=== PATIENT | male | born 1945 ===

== ENCOUNTER 2019-09-01 20:33 | Inpatient (IN) | payer MEDICARE, OTHER ==
[~2019-09-01] VITALS: Ht 175.3 cm; Wt 60.6 kg
--- OUTSIDE RECORDS SUMMARY | ~2019-09-01 | XMS | Encounter Summary ---
Demographics + + + | Address | [address] | | | [place] [address] | + + + | Home Phone | | + + + | Preferred Language | Unknown | + + + | Marital Status | | + + + | Evangelical Affiliation | Unknown | + + + | Race | Unknown | + + + | Ethnic Group | Unknown | + + + Author + + + | Author | [facility] | | | and [place] | + + + | Organization | [facility] | | | and [place] | + + + | Address | Unknown | + + + | Phone | Unavailable | + + + Support + + +---------+ + | Name | Relationship | Address | Phone | + + +---------+ + | Salina Purdy | ECON | Unknown | | + + +---------+ + Care Team Providers + +------+ + | Care Life Specialist Name | Role | Phone | + +------+ + | Aric Palmer | PCP | | | PAPatrica | | | + +------+ + Reason for Visit + + + | Reason | Comments | + + + | Medication Refill | | + + + Encounter Details +--------+--------+ + + + | Date | Type | Department | Care Team | Description | +--------+--------+ + + + | 11/22/ | Refill | [facility] | Aric Palmer | Medication Refill | | 2019 | | [facility] | [address] | | | | | [address] | [place] [facility], | | | | | [facility], | [place] [address] | | | | | [place] [address] | [phone] | | | | | [phone] | | | +--------+--------+ + + + Social History + + + +--------+ + | Tobacco Use | Types | Packs/Day | Years | Date | | | | | Used | | + + + +--------+ + | Current Every Day | Cigarettes | 1 | 62 | Started: 05/19/1954 | | Smoker | | | | | + + + +--------+ + + +---+---+---+ | Smokeless Tobacco: | | | | | Never Used | | | | + +---+---+---+ + + +---------+ + | Alcohol Use | Drinks/Week | oz/Week | Comments | + + +---------+ + | Yes | | | | + + +---------+ + + + + | Sex Assigned at | Date Recorded | | | | + + + | Not on file | | + + + + + + + | Job Start Date | Occupation | Industry | + + + + | Not on file | Not on file | Not on file | + + + + + + + + | Travel History | Travel Start | Travel End | + + + + + + | No recent travel history available. | + + documented as of this encounter Plan of Treatment Not on filedocumented as of this encounter Visit Diagnoses Not on filedocumented in this encounter"
--- OUTSIDE RECORDS SUMMARY | ~2019-09-01 | XMS | Encounter Summary ---
Demographics + + + | Address | [address] | | | [place] [address] | + + + | Home Phone | | + + + | Preferred Language | Unknown | + + + | Marital Status | | + + + | Restoration Affiliation | Unknown | + + + | Race | Unknown | + + + | Ethnic Group | Unknown | + + + Author + + + | Author | [facility] | | | and [place] | + + + | Organization | [facility] | | | and [place] | [...] Team Providers + +------+ + | Care Third Hand Name | Role | Phone | + +------+ + | Aric Palmer | PCP | | | PA-Terry | | | + +------+ + Reason for Visit + + + | Reason | Comments | + + + | Animal Bite | cat | + + + Encounter Details +--------+---------+ + + + | Date | Type | Department | Care Team | Description | +--------+---------+ + + + | 12/13/ | Office | [facility] | Lai Faith, | Infected cat bite of | | 2019 | Visit | [facility] | DNP [address] | finger, initial | | | | [address] | [place] [address] | encounter (Primary | | | | [facility], | [phone] | Dx); Chronic | | | | [place] [address] | | obstructive | | | | [phone] | | pulmonary disease, | | | | | | unspecified COPD | | | | | | type ([facility]); Stable | | | | | | angina pectoris | | | | | | ([facility]) | +--------+---------+ + + + Social History + + + +--------+ + | Tobacco Use | Types | Packs/Day | Years | Date | | | | | Used | | + + + +--------+ + | Current Every Day | Cigarettes | 2 | 63 | Started: 05/19/1954 | | Smoker | | | | | + + + +--------+ + + +---+---+---+ | Smokeless Tobacco: | | | | | Never Used | | | | + +---+---+---+ + + +---------+ + | Alcohol Use | Drinks/Week | oz/Week | Comments | + + +---------+ + | Yes | 1 Shots of liquor | 1.0 | every evening | + + +---------+ + + + [...] + + documented as of this encounter Last Filed Vital Signs + + + + + | Vital Sign | Reading | Time Taken | Comments | + + + + + | Blood Pressure | 132/60 | 12/13/2018 1:08 PM | | | | | PST | | + + + + + | Pulse | - | - | | + + + + + | Temperature | 36.8 C (98.2 F) | 12/13/2018 1:08 PM | | | | | PST | | + + + + + | Respiratory Rate | - | - | | + + + + + | Oxygen Saturation | 94% | 12/13/2018 1:08 PM | | | | | PST | | + + + + + | Inhaled Oxygen | - | - | | | Concentration | | | | + + + + + | Weight | 65.9 kg (145 lb 4.8 | 12/13/2018 1:08 PM | | | | oz) | PST | | + + + + + | Height | 175.3 cm (5' 9") | 12/13/2018 1:08 PM | | | | | PST | | + + + + + | Body Mass Index | 21.46 | 12/13/2018 1:08 PM | | | | | PST | | + + + + + documented in this encounter Progress Notes Lai Faith, KEITH - 12/13/2018 1:00 PM PSTFormatting of this note might be different fro m the original. Patient ID: Saturnino Avila is a 73 y.o. year old male Chief Complaint Patient presents with Animal Bite cat Assessment and Plan: 1. Infected cat bite of finger, initial encounter - amoxicillin-clavulanate (AUGMENTIN) 875-125 mg per tablet; Take 1 tablet by mouth 2 times daily for 14 days. Dispense: 28 tablet; Refill: 0 - Apply hot compresses as able. - Epsom salt soaks. - Promote purulent drainage as able. 2. Chronic obstructive pulmonary disease, unspecified COPD type (HCC) - tiotropium-olodaterol (STIOLTO RESPIMAT) 2.5-2.5 mcg/puff inhaler; Inhale 2 puffs into th e lungs Daily. Dispense: 1 Inhaler; Refill: 4 3. Stable angina pectoris (HCC) - nitroglycerin (NITROSTAT) 0.4 mg SL tablet; Place 1 tablet under the tongue every 5 minut es as needed for Chest pain. Dispense: 25 tablet; Refill: 1 Follow up in the clinic next week for a nurse only visit to reevaluate the infected bite wo und. Patient may also follow up as needed. Subjective: Saturnino is a 73-year-old who presents to the clinic with complaints of a recent cat bite that is infected. The cat was a stray that he has had a relationship with for some ti me. Saturnino has a Tdap injection in 2016, so he is up to date on his tetanus. His finger has been painful, red, and swollen with prurulent drainage. The cat was taken to the [facility] after the bite incident. While the finger is obviously infected it is only causing mo derate pain, rated 4-6/10. There has not been any erythematous streaking up the patient's a rm. He denies increased chest pain, fever, chills, diaphoresis, increased shortness of abhijit th or palpitations. Saturnino does have stable angina for which he intermittently takes Nitroglycerine. He has not had a refill of this medication in some time and would like to get a fresh supply. He also needs a refill of his maintenance inhaler which he uses for his baseline COPD. Saturnino denie s other needs at this time. Allergies Allergen Reactions Aspirin Nausea Only and Swelling Bee Venom Anaphylaxis Soap & Cleansers Swelling Rash/swelling Uncoded Nonscreenable Allergen [place], patient states he gets red spots and they burn and get itchy. Codeine Nausea And Vomiting Social History Social History Marital status: Spouse name: N/A Number of children: N/A Years of education: N/A Occupational History Not on file. Social History Main Topics Smoking status: Current Every Day Smoker Packs/day: 2.00 Years: 62.00 Types: Cigarettes Start date: 05/19/1954 Smokeless tobacco: Never Used Alcohol use 0.6 oz/week 1 Shots of liquor per week Comment: every evening Drug use: Yes Types: Marijuana Comment: occasional Sexual activity: Not Currently Other Topics Concern Not on file Social History Narrative No narrative on file Current Outpatient Prescriptions Medication Sig Dispense Refill amoxicillin-clavulanate (AUGMENTIN) 875-125 mg per tablet Take 1 tablet by mouth 2 time s daily for 14 days. 28 tablet 0 B Complex Vitamins (VITAMIN B COMPLEX) tablet Take 1 tablet by mouth Daily. 90 each 3 Calcium Carb-Cholecalciferol (CALCIUM 500 +D) 500-400 MG-UNIT TABS Take 2 tablets by mo uth Daily. 180 tablet 3 capsaicin (ZOSTRIX) 0.025% cream Apply topically Daily. carvedilol (COREG) 6.25 mg tablet Take 1 tablet by mouth 2 times daily (with breakfast & dinner). 180 tablet 3 clopidogrel (PLAVIX) 75 mg tablet Take 1 tablet by mouth Daily. 90 tablet 3 cyclobenzaprine (FLEXERIL) 10 mg tablet Take 1 tablet by mouth 3 times daily as needed for Muscle spasms. 270 tablet 0 EPINEPHrine auto-injector (EPIPEN 2-TERRI) 0.3 mg/0.3 mL injection Inject 0.3 mg into the muscle as needed for Anaphylaxis. fluocinonide (LIDEX) 0.05% cream Apply topically Daily. 90 Application 3 gabapentin (NEURONTIN) 300 mg capsule Take 3 capsules by mouth 3 times daily. 810 capsu le 0 HYDROcodone-acetaminophen (NORCO) 5-325 mg per tablet Take 2 tablets by mouth 2 times d aily. 112 tablet 5 lisinopril (PRINIVIL,ZESTRIL) 40 MG tablet Take 1 tablet by mouth Daily. 90 tablet 3 nitroglycerin (NITROSTAT) 0.[address] 1 tablet under the tongue every 5 stacy sade as needed for Chest pain. 25 tablet 1 Nutritional Supplements (ENSURE PLUS HN) LIQD Take 1 Can by mouth 2 times daily. 60 Can 11 nystatin (MYCOSTATIN) 100,000 units/mL suspension Swish and swallow 5 ml four times kevin ly up to 48 hours after symptoms resolve Indications: Candidiasis Fungal Infection of the O ropharynx 473 mL 0 omeprazole (PRILOSEC) 20 mg capsule Take 1 capsule by mouth 2 times daily. 180 capsule 0 prazosin (MINIPRESS) 2 MG capsule Take 1 capsule by mouth 2 times daily. 60 capsule 11 simvastatin (ZOCOR) 80 mg tablet Take 1 tablet by mouth nightly. 90 tablet 3 tiotropium-olodaterol (STIOLTO RESPIMAT) 2.5-2.5 mcg/puff inhaler Inhale 2 puffs into t he lungs Daily. 1 Inhaler 4 traZODone (DESYREL) 100 mg tablet Take 1 tablet by mouth nightly. Take 2 tablets at nig ht 90 tablet 0 No current facility-administered medications for this visit. Review of Systems See HPI. Objective: Vitals: BP 132/60 | Temp 36.8 C (98.2 F) | Ht 1.753 m (5' 9") | Wt 65.9 kg (145 lb 4.8 oz) | SpO2 94% | BMI 21.46 kg/m Physical Exam Constitutional: He is oriented to person, place, and time. He appears well-developed and we ll-nourished. No distress. Cardiovascular: Normal rate, regular rhythm and normal heart sounds. No murmur heard. Pulmonary/Chest: Effort normal and breath sounds normal. No respiratory distress. He has no wheezes. He has no rales. Musculoskeletal: See clinical image. Right 5th finger is swollen with two to three puncture sites. Upon pa lpation and compression there is apparent purulent drainage from the ventral puncture hole. Neurological: He is alert and oriented to person, place, and time. Skin: Skin is warm and dry. No rash noted. He is not diaphoretic. There is erythema. No pal frankie. Psychiatric: He has a normal mood and affect. His behavior is normal. Judgment and thought content normal. This note was transcribed using voice recognition software; there may be speech recognition errors which escaped detection during proofreading. documented in this en counter Plan of Treatment Not on filedocumented as of this encounter Visit Diagnoses + + | Diagnosis | + + | Infected cat bite of finger, initial encounter - Primary | + + | Chronic obstructive pulmonary disease, unspecified COPD type (HCC) | + + | Stable angina pectoris (HCC) | + + documented in this encounter
--- OUTSIDE RECORDS SUMMARY | ~2019-09-01 | XMS | Encounter Summary ---
Demographics + + + | Address | [address] | | | [place] [address] | + + + | Home Phone | | + + + | Preferred Language | Unknown | + + + | Marital Status | | + + + | Uatsdin Affiliation | Unknown | + + + | Race | Unknown | + + + | Ethnic Group | Unknown | + + + Author + + + | Author | [facility] | | | and [place] | + + + | Organization | [facility] | | | and [place] [...] Team Providers + +------+ + | Care Operator Name | Role | Phone | + +------+ + | Faith Rodríguez NP | PCP | | + +------+ + Reason for Visit + + + | Reason | Comments | + + + | Medication Refill | | + + + Encounter Details +--------+--------+ + + + | Date | Type | Department | Care Team | Description | +--------+--------+ + + + | 11/07/ | Refill | [facility] | Nate Rodríguezher | Medication Refill | | 2018 | | [facility] | D, DIRECTOR NURSES' REGISTRY ONE | | | | | PR[address] C[address] | [facility] | | | | | [facility], | [place] [address] | | | | | [place] [address] | [phone] | | | | | [phone] | | | +--------+--------+ + + + [...] + | Diagnosis | + + | Chronic obstructive pulmonary disease, unspecified COPD type (HCC) - Primary | + + documented in this encounter"
--- OUTSIDE RECORDS SUMMARY | ~2019-09-01 | XMS | Encounter Summary ---
Demographics + + + | Address | [address] | | | [place] [address] | + + + | Home Phone | | + + + | Preferred Language | Unknown | + + + | Marital Status | | + + + | Hoahaoism Affiliation | Unknown | + + + | Race | Unknown | + + + | Ethnic Group | Unknown | + + + Author + + + | Author | [facility] | | | and [place] | + + + | Organization | [facility] | | | and [place] | [...] Team Providers + +------+ + | Care Business Account Specialist Name | Role | Phone | + +------+ + | Faith Rodríguez NP | PCP | | + +------+ + Encounter Details +--------+ + + + + | Date | Type | Department | Care Team | Description | +--------+ + + + + | 07/31/ | Hospital | [facility] | Faith Rodríguez | | | 2016 | Encounter | [facility] [address] | [address] | | | | | [place] | [facility] | | | | | [place], [place] | [place] [address] | | | | | [address] | [phone] | | | | | [phone] | | | +--------+ + + + + Social History + +-------+ +--------+ + | Tobacco Use | Types | Packs/Day | Years | Date | | | | | Used | | + +-------+ +--------+ + | Current Every Day | | 1.5 | 63 | Started: 05/19/1954 | | Smoker | | | | | + +-------+ +--------+ + + +---+---+---+ | Smokeless Tobacco: | | | | | Never Used | | | | + +---+---+---+ + + + | Sex Assigned at [...] + + documented as of this encounter Medications at Time of Discharge + + + +---------+--------+ + | Medication | Sig | Dispensed | Refills | Start | End Date | | | | | | Date | | + + + +---------+--------+ + | albuterol | Inhale 2 puffs into | | 0 | | | | (PROVENTIL HFA) 90 | the lungs every 4 | | | | 8 | | mcg/puff inhaler | hours as needed for | | | | | | | Wheezing or | | | | | | | Shortness of Breath. | | | | | + + + +---------+--------+ + | B Complex Vitamins | Take 1 tablet by | | 0 | | | | (VITAMIN B COMPLEX) | mouth Daily. | | | | 8 | | tablet | | | | | | + + + +---------+--------+ + | capsaicin | Apply topically | | 0 | | | | (ZOSTRIX) 0.025% | Daily. | | | | 9 | | cream | | | | | | + + + +---------+--------+ + | cyclobenzaprine | Take 10 mg by mouth | | 0 | | | | (FLEXERIL) 10 mg | 3 times daily as | | | | 8 | | tablet | needed for Muscle | | | | | | | spasms. | | | | | + + + +---------+--------+ + | EPINEPHrine | Inject 0.3 mg into | | 0 | | | | auto-injector | the muscle as needed | | | | 9 | | (EPIPEN 2-TERRI) 0.3 | for Anaphylaxis. | | | | | | mg/0.3 mL injection | | | | | | + + + +---------+--------+ + | fluocinonide | Apply topically | | 0 | | | | (LIDEX) 0.05% cream | Daily. | | | | 8 | + + + +---------+--------+ + | gabapentin | Take 900 mg by mouth | | 0 | | | | (NEURONTIN) 300 mg | 3 times daily. | | | | 8 | | capsule | | | | | | + + + +---------+--------+ + | | Take 2 tablets by | | 0 | | | | HYDROcodone-acetamin | mouth 2 times daily. | | | | 7 | | ophen (NORCO) 5-325 | | | | | | | mg per tablet | | | | | | + + + +---------+--------+ + | lisinopril | Take 40 mg by mouth | | 0 | | | | (PRINIVIL,ZESTRIL) | Daily. | | | | 8 | | 40 MG tablet | | | | | | + + + +---------+--------+ + | omeprazole | Take 20 mg by mouth | | 0 | | | | (PRILOSEC) 20 mg | 2 times daily. | | | | 8 | | capsule | | | | | | + + + +---------+--------+ + | prazosin | Take 2 mg by mouth 2 | | 0 | | | | (MINIPRESS) 2 MG | times daily. | | | | 7 | | capsule | | | | | | + + + +---------+--------+ + | simvastatin | Take 80 mg by mouth | | 0 | | | | (ZOCOR) 80 mg tablet | nightly. | | | | 9 | + + + +---------+--------+ + | | Inhale 2 puffs into | | 0 | | | | tiotropium-olodatero | the lungs Daily. | | | | 8 | | l (STIOLTO RESPIMAT) | | | | | | | 2.5-2.5 mcg/puff | | | | | | | inhaler | | | | | | + + + +---------+--------+ + | traZODone | Take 100 mg by mouth | | 0 | | | | (DESYREL) 100 mg | nightly. | | | | 8 | | tablet | | | | | | + + + +---------+--------+ + documented as of this encounter Plan of Treatment Not on filedocumented as of this encounter Procedures + +--------+ + + + | Procedure Name | Priori | Date/Time | Associated Diagnosis | Comments | | | ty | | | | + +--------+ + + + | CT CHEST W CONTRAST | Routin | 07/31/2017 | | Results for this | | | e | 12:53 PM | | procedure are in the | | | | PDT | | results section. | + +--------+ + + + documented in this encounter Results CT Chest w Contrast (07/31/2017 12:53 PM PDT) + + | Specimen | + + | | + + + + + | Narrative | Performed At | + + + | EXAMINATION: CT THORAX WITH CONTRAST HISTORY: 9mm nodule & 2- | | | 5mm nodules. Cough,copd. COMPARISON STUDY: CT chest 04/28/2017. | | | TECHNIQUE: 5 mm axial slices were acquired through the lungs with | | | contrast. Multiplanar MIP and surface rendered reconstructions were | | | performed. There was no post contrast reaction. DOSE REPORT: | | | DLP 147.31 mGy-cm. Automated exposure control was utilized. | | | FINDINGS: Severe emphysematous changes are redemonstrated. Again | | | demonstrated at the base of the right lower lobe abutting the minor | | | fissure a 9 mm platelike opacity is present. The margins are | | | spiculated. No hilar or mediastinal adenopathy is seen. Heart | | | size is normal. Atherosclerosis of the coronary arteries is | | | present. Atherosclerosis of the aortic valve is present. No lytic | | | or blastic bone lesions are seen. Below the diaphragm no acute | | | finding is identified. Hypo attenuating 1.5 cm right thyroid nodule | | | is present. The descending aorta demonstrates maximal caliber of | | | approximately 4.5 cm. Mural thrombus with ulceration is evident at | | | the descending aorta. IMPRESSION: 1. Stable appearing right upper | | | lobe platelike nodular opacity. Given the severe emphysematous | | | changes patient is considered high risk. The lesion does abut the | | | minor fissure and demonstrates a plate like configuration rather than | | | a rounded configuration. This finding could relate to scar although | | | malignancy is not excluded. Six-month follow-up CT or PET-CT | | | recommended to further evaluate. 2. Severe emphysematous changes. | | | 3. Atherosclerosis coronary arteries. 4. Atherosclerosis aortic | | | valve. 5. Right thyroid nodule. Recommend ultrasound to further | | | evaluate. 6. Mural thrombus was ulcerated appearance involving | | | descending thoracic aorta. This finding is unchanged. Vascular | | | consult recommended. JOB #: [id number] Digitally Released by: | | | Faye Quintero Read By: FAYE QUINTERO MD Date: | | | 07/31/2017 14:06 | | + + + + + | Procedure Note | + + | Ish[place], Rad Results In - 11/03/2017 8:59 AM PST EXAMINATION: | | CT THORAX WITH CONTRAST | | | | HISTORY: | | 9mm nodule & 2- 5mm nodules. Cough,copd. | | | | COMPARISON STUDY: | | CT chest 04/28/2017. | | | | TECHNIQUE: | | 5 mm axial slices were acquired through the lungs with contrast. Multiplanar | | MIP and surface rendered reconstructions were performed. There was no post | | contrast reaction. | | | | DOSE REPORT: | | DLP 147.31 mGy-cm. Automated exposure control was utilized. | | | | FINDINGS: | | Severe emphysematous changes are redemonstrated. Again demonstrated at the | | base of the right lower lobe abutting the minor fissure a 9 mm platelike | | opacity is present. The margins are spiculated. No hilar or mediastinal | | adenopathy is seen. Heart size is normal. Atherosclerosis of the coronary | | arteries is present. Atherosclerosis of the aortic valve is present. No | | lytic or blastic bone lesions are seen. Below the diaphragm no acute finding | | is identified. Hypo attenuating 1.5 cm right thyroid nodule is present. | | | | The descending aorta demonstrates maximal caliber of approximately 4.5 cm. | | Mural thrombus with ulceration is evident at the descending aorta. | | | | IMPRESSION: | | 1. Stable appearing right upper lobe platelike nodular opacity. Given the | | severe emphysematous changes patient is considered high risk. The lesion does | | abut the minor fissure and demonstrates a plate like configuration rather than | | a rounded configuration. This finding could relate to scar although | | malignancy is not excluded. Six-month follow-up CT or PET-CT recommended to | | further evaluate. | | 2. Severe emphysematous changes. | | 3. Atherosclerosis coronary arteries. | | 4. Atherosclerosis aortic valve. | | 5. Right thyroid nodule. Recommend ultrasound to further evaluate. | | 6. Mural thrombus was ulcerated appearance involving descending thoracic | | aorta. This finding is unchanged. Vascular consult recommended. | | | | | | JOB #: [id number] | | Digitally Released by: Faye Quintero | | | | | | Read By: FAYE QUINTERO MD | | Date: 07/31/2017 14:06 | | | + + documented in this encounter Visit Diagnoses Not on filedocumented in this encounter"
--- OUTSIDE RECORDS SUMMARY | ~2019-09-01 | XMS | Encounter Summary ---
Demographics + + + | Address | [address] | | | [place] [address] | + + + | Home Phone | | + + + | Preferred Language | Unknown | + + + | Marital Status | | + + + | Gnosticism Affiliation | Unknown | + + + | Race | Unknown | + + + | Ethnic Group | Unknown | + + + Author + + + | Author | [facility] | | | and [place] | + + + | Organization | [facility] | | | and [place] [...] Team Providers + +------+ + | Care Supervisor Tellers Name | Role | Phone | + +------+ + | Aric Palmer | PCP | | | [place] | | | + +------+ + Encounter Details +--------+ + + + + | Date | Type | Department | Care Team | Description | +--------+ + + + + | 10/31/ | Orders Only | [facility] | Aric Palmer | | | 2018 | | [facility] | [place] [address] | | | | | [address] | [address] [address], | | | | | [place] [address] [place], | [place] [address] | | | | | [place] [address] | [phone] | | | | | [phone] | | | +--------+ + + + + Social History + + [...]
--- OUTSIDE RECORDS SUMMARY | ~2019-09-01 | XMS | Encounter Summary ---
Demographics + + + | Address | [address] | | | [place] [address] | + + + | Home Phone | | + + + | Preferred Language | Unknown | + + + | Marital Status | | + + + | Adventist Affiliation | Unknown | + + + | Race | Unknown | + + + | Ethnic Group | Unknown | + + + Author + + + | Author | [facility] | | | and [place] | + + + | Organization | [facility] | | | and [place] [...] Team Providers + +------+ + | Care Die Sizer Name | Role | Phone | + +------+ + PCP | Unavailable | + +------+ + Encounter Details +--------+ + + + + | Date | Type | Department | Care Team | Description | +--------+ + + + + | 01/25/ | Hospital | [facility] | Jacklyn Saldana | | | 2010 | Encounter | [facility] [address] | [address] | | | | | [address] | [address] | | | | | [place] | [place] [address] | | | | | [address] | [phone] | | | | | [phone] | | | +--------+ + + + + Social History + +-------+ +--------+------+ | Tobacco Use | Types | Packs/Day | Years | Date | | | | | Used | | + +-------+ +--------+------+ | Never Assessed | | | | | + +-------+ +--------+------+ + + + | Sex Assigned at [...]
--- OUTSIDE RECORDS SUMMARY | ~2019-09-01 | XMS | Encounter Summary ---
Demographics + + + | Address | [address] | | | [place] [address] | + + + | Home Phone | | + + + | Preferred Language | Unknown | + + + | Marital Status | | + + + | Evangelical Affiliation | Unknown | + + + | Race | Unknown | + + + | Ethnic Group | Unknown | + + + Author + + + | Author | [facility] | | | and [place] | + + + | Organization | [facility] | | | and [...] Team Providers + +------+ + | Care Audio Technician Name | Role | Phone | + [...] Description | +--------+--------+ + + + | 10/31/ | Refill | [facility] | Aric Palmer | Medication Refill | | 2019 | | [facility] | [address] | | | | | [address] | [place] [facility], | | | | | [place], | [place] [address] | | | | | [place] [address] | [phone] | | | | | [phone] | | | +--------+--------+ + + + [...] + | Diagnosis | + + | Essential hypertension Unspecified essential hypertension | + + documented in this encounter"
--- OUTSIDE RECORDS SUMMARY | ~2019-09-01 | XMS | Encounter Summary ---
Demographics + + + | Address | [address] | | | [place] [address] | + + + | Home Phone | | + + + | Preferred Language | Unknown | + + + | Marital Status | | + + + | Zoroastrianism Affiliation | Unknown | + + + | Race | Unknown | + + + | Ethnic Group | Unknown | + + + Author + + + | Author | [facility] | | | and [place] | + + + | Organization | [facility] | | | and [place] | [...] Team Providers + +------+ + | Care Dermatology Technician Name | Role | Phone | + +------+ + | Aric Palmer | PCP | | | [place] | | | + +------+ + Encounter Details +--------+ + + + + | Date | Type | Department | Care Team | Description | +--------+ + + + + | 03/26/ | Transcribed | [place] [facility] | Aric Palmer | Annual physical exam | | 2019 | Orders | [facility] | [address] | (Primary Dx); | | | | [address] | [place] [facility], | Routine medical exam | | | | [facility], [place] | [place] [address] | | | | | [address] | [phone] | | | | | [phone] | | | +--------+ + + + [...] Not on filedocumented as of this encounter Results Urinalysis (06/12/2019 4:07 PM PDT) + + + + + + | Component | Value | Ref Range | Performed | Pathologist | | | | | At | Signature | + + + + + + | Color | Alana (A) | Pale Yellow, | [place] | | | | | Yellow | [facility] | | | | | [facility] | | + + + + + + | Clarity | Clear | Clear | [place] | | | | | | [facility] | | | | [facility] | | + + + + + + | pH, Urine | 5.0 | 5.0 - 7.0 | [place] | | | | | | [facility] | | | | | | [facility] | | + + + + + + | Specific | 1.010 | 1.003 - 1.030 | [place] | | | [place] | | | [facility] | | | | | | [facility] | | + + + + + + | Protein, | 30 mg/dL (A) | Negative | [place] | | | Urine | | | [facility] | | | | | | [facility] | | + + + + + + | Blood, | Negative | Negative | [place] | | | Urine | | | [facility] | | | | | | [facility] | | + + + + + + | Glucose, | Normal | Normal | [place] | | | Urine | | | [facility] | | | | | | [facility] | | + + + + + + | Ketones, | 5 mg/dL (A) | Negative | [place] | | | Urine | | | [facility] | | | | | | [facility] | | + + + + + + | Bilirubin, | Negative | Negative | [place] | | | Urine | | | [facility] | | | | | | [facility] | | + + + + + + | Nitrite, | Negative | Negative | [place] | | | Urine | | | [facility] | | | | | | [facility] | | + + + + + + | Leukocyte | 25 evie/uL (A) | Negative | [place] | | | [facility], | | | [facility] | | | U[facility] | | [facility] | | | | | | [facility] | | + + + + + + | Urobilinoge | 8 mg/dL (A) | 0-1.0 mg/dL | [place] | | | n, Urine | | | [facility] | | | | | | [facility] | | + + + + + + + + | Specimen | + + | Urine - Urine | | specimen obtained by | | clean catch | | procedure (specimen) | + + + + + + + | Performing | Address | City/State/Zipcode | Phone Number | | Organization | | | | + + + + + | [facility] | [address] | [place] [address] | [phone] | | [facility] | | | | + + + + + documented in this encounter Visit Diagnoses + + | Diagnosis | + + | Annual physical exam - Primary Routine general medical examination at a [facility] | | facility | + + | Routine medical exam Routine general medical examination at a health care facility | + + documented in this encounter"
--- OUTSIDE RECORDS SUMMARY | ~2019-09-01 | XMS | Encounter Summary ---
Demographics + + + | Address | [address] | | | [place] [address] | + + + | Home Phone | | + + + | Preferred Language | Unknown | + + + | Marital Status | | + + + | Jewish Affiliation | Unknown | + + + | Race | Unknown | + + + | Ethnic Group | Unknown | + + + Author + + + | Author | [facility] | | | and [place] | + + + | Organization | [facility] | | | and [place] [...] Team Providers + +------+ + | Care Power Line Lineman Name | Role | Phone | + +------+ + | Aric Palmer | PCP | | | PA-C | | | + +------+ + Reason for Visit + + + | Reason | Comments | + + + | Medication Refill | | + + + | Medication Refill | | + + + Encounter Details +--------+--------+ + + + | Date | Type | Department | Care Team | Description | +--------+--------+ + + + | 04/24/ | Refill | [facility] | Aric Palmer | Medication Refill; | | 2018 | | [facility] | [address] | Medication Refill | | | | [address] | [facility], | | | | | [facility], | [place] [address] | | | | | [place] [address] | [phone] | | | | | [phone] | | | +--------+--------+ + + + [...]
--- OUTSIDE RECORDS SUMMARY | ~2019-09-01 | XMS | Encounter Summary ---
Demographics + + + | Address | [address] | | | [place] [address] | + + + | Home Phone | | + + + | Preferred Language | Unknown | + + + | Marital Status | | + + + | Sabianist Affiliation | Unknown | + + + | Race | Unknown | + + + | Ethnic Group | Unknown | + + + Author + + + | Author | [facility] | | | and [place] | + + + | Organization | [facility] | | | and [...] Team Providers + +------+ + | Care Rubberizing Mechanic Name | Role | Phone | + +------+ + PCP | Unavailable | + +------+ + Encounter Details +--------+ + + + + | Date | Type | Department | Care Team | Description | +--------+ + + + + | 03/22/ | [facility] | [place] [facility] | [place] | | | 2017 | Encounter | [facility] | [address] | | | | | SUR[address] | [address] [place] | | | | | [address] [place], | [place], [place] | | | | | [place] [address] | [address] | | | | | [phone] | [phone] | | | | | | | | +--------+ + + + [...]
--- OUTSIDE RECORDS SUMMARY | ~2019-09-01 | XMS | Encounter Summary ---
Demographics + + + | Address | [address] | | | [place] [address] | + + + | Home Phone | | + + + | Preferred Language | Unknown | + + + | Marital Status | | + + + | Cheondoism Affiliation | Unknown | + + + | Race | Unknown | + + + | Ethnic Group | Unknown | + + + Author + + + | Author | [facility] | | | and [place] | + + + | Organization | [facility] | | | and [place] [...] Team Providers + +------+ + | Care Paper Finisher Name | Role | Phone | + +------+ + | Faith Rodríguez NP | PCP | | + +------+ + Reason for Visit Diagnostic/Screening (Routine) +--------+--------+ + + + + | Status | Reason | Specialty | Diagnoses / | Referred By | Referred To | | | | | Procedures | Contact | Contact | +--------+--------+ + + + + | Closed | | Radiology | Procedures | Provider, | | | | | | CT Chest w | Historical, | | | | | | Contrast | [address] | | | | | | | [address] | | | | | | | [place] | | | | | | | [address] | | +--------+--------+ + + + + Encounter Details +--------+ + + + + | Date | Type | Department | Care Team | Description | +--------+ + + + + | 08/09/ | Imaging | [facility] | Provider, | | | 2017 | Exam | [facility] | [address] | | | | | IMAGING | [place] | | | | | [phone] | [place] [address] | | +--------+ + + + + [...] for this | | | e | 1:40 PM | | procedure are in the | | | | PDT | | results section. | + +--------+ + + + documented in this encounter Results CT Chest w Contrast (07/31/2017 1:40 PM PDT) + + | Specimen | + + | | + + + + + | Narrative | Performed At | + + + | External films | [facility] | | for comparison only - no result from Jamie. | | + + + + +---------+ + + | Performing | Address | City/State/Zipcode | Phone Number | | Organization | | | | + +---------+ + + | [facility] | | | | + +---------+ + + documented in this encounter Visit Diagnoses Not on filedocumented in this encounter"
--- OUTSIDE RECORDS SUMMARY | ~2019-09-01 | XMS | Encounter Summary ---
Demographics + + + | Address | [address] | | | [place] [address] | + + + | Home Phone | | + + + | Preferred Language | Unknown | + + + | Marital Status | | + + + | Jain Affiliation | Unknown | + + + | Race | Unknown | + + + | Ethnic Group | Unknown | + + + Author + + + | Author | [facility] | | | and [place] | + + + | Organization | [facility] | | | and [place] [...] Team Providers + +------+ + | Care Heeler Machine Name | Role | Phone | + +------+ + | Faith Rodríguez NP | PCP | | + +------+ + Reason for Visit +--------+ + | Reason | Comments | +--------+ + | Other | | +--------+ + Encounter Details +--------+ + + + + | Date | Type | Department | Care Team | Description | +--------+ + + + + | 07/19/ | Telephone | [facility] | Aric Palmer | Other | | 2018 | | [facility] | [address] | | | | | [address] | [place] [facility], | | | | | [place] [facility], | [place] [address] | | | | | [place] [address] | [phone] | | | | | [phone] | | | +--------+ + + + [...]
--- OUTSIDE RECORDS SUMMARY | ~2019-09-01 | XMS | Encounter Summary ---
Demographics + + + | Address | [address] | | | [place] [address] | + + + | Home Phone | | + + + | Preferred Language | Unknown | + + + | Marital Status | | + + + | Baptist Affiliation | Unknown | + + + | Race | Unknown | + + + | Ethnic Group | Unknown | + + + Author + + + | Author | [facility] | | | and [place] | + + + | Organization | [facility] | | | and [...] Team Providers + +------+ + | Care Photocomposition Keyboard Operator Name | Role | Phone | + +------+ + PCP | Unavailable | + +------+ + Encounter Details +--------+ + + + + | Date | Type | Department | Care Team | Description | +--------+ + + + + | 05/01/ | [facility] | [place] [facility] | Carlos Callejas | | | 2016 | Encounter | HOSPITAL EMERGENCY | [address] | | | | | [place] | [facility] | | | | | [address] [place] | [place] [address] | | | | | [address] | [phone] | | | | | [phone] | | | +--------+ + + + [...] | + +--------+ + + + | CBC W/AUTO | STAT | 05/01/2017 | | Results for this | | DIFFERENTIAL | | 2:54 PM | | procedure are in the | | | | PDT | | results section. | + +--------+ + + + | TROPONIN I | STAT | 05/01/2017 | | Results for this | | | | 2:54 PM | | procedure are in the | | | | PDT | | results section. | + +--------+ + + + | MAGNESIUM | STAT | 05/01/2017 | | Results for this | | | | 2:54 PM | | procedure are in the | | | | PDT | | results section. | + +--------+ + + + | LIPASE | STAT | 05/01/2017 | | Results for this | | | | 2:54 PM | | procedure are in the | | | | PDT | | results section. | + +--------+ + + + | COMPREHENSIVE | STAT | 05/01/2017 | | Results for this | | METABOLIC PANEL | | 2:54 PM | | procedure are in the | | | | PDT | | results section. | + +--------+ + + + | XR CHEST 2 VIEWS | Routin | 05/01/2017 | | Results for this | | | e | 11:43 AM | | procedure are in the | | | | PDT | | results section. | + +--------+ + + + | CT ANGIOGRAM HEAD W | Routin | 05/01/2017 | | Results for this | | CONTRAST | e | 11:43 AM | | procedure are in the | | | | PDT | | results section. | + +--------+ + + + documented in this encounter Results Troponin I (05/01/2017 2:54 PM PDT) + +-------+ + + + | Component | Value | Ref Range | Performed | Pathologist | | | | | At | Signature | + +-------+ + + + | Troponin I | 0.03 | <=0.10 ng/mL | EXTERNAL | | | | | | LAB | | + +-------+ + + + + + | Specimen | + + | | + + + +---------+ + + | Performing | Address | City/State/Zipcode | Phone Number | | Organization | | | | + +---------+ + + | EXTERNAL LAB | | | | + +---------+ + + CBC w/ Auto Differential (05/01/2017 2:54 PM PDT) + +-------+ + + + | Component | Value | Ref Range | Performed | Pathologist | | | | | At | Signature | + +-------+ + + + | WBC | 7.5 | 4.6 - 10.5 | EXTERNAL | | | | | 1000/mm3 | LAB | | + +-------+ + + + | RBC | 3.78 | 4.36 - 5.83 | EXTERNAL | | | | | mil/mm3 | LAB | | + +-------+ + + + | HGB, | 13.4 | 13.1 - 17.4 | EXTERNAL | | | External | | g/dL | LAB | | + +-------+ + + + | HCT, | 39.1 | 39.0 - 51.9 % | EXTERNAL | | | External | | | LAB | | + +-------+ + + + | MCV | 103 | 82 - 96 fl | EXTERNAL | | | | | | LAB | | + +-------+ + + + | MCH | 35.4 | 27.7 - 32.3 pg | EXTERNAL | | | | | | LAB | | + +-------+ + + + | MCHC | 34.3 | 32.0 - 36.9 | EXTERNAL | | | | | g/dL | LAB | | + +-------+ + + + | RDW-CV | 12.9 | <=17.0 % | EXTERNAL | | | | | | LAB | | + +-------+ + + + | RDW-SD | 49 | 34.0 - 57.0 fL | EXTERNAL | | | | | | LAB | | + +-------+ + + + | Platelet | 152 | 150 - 450 | EXTERNAL | | | Count | | 1000/mm3 | LAB | | | Plasma | | | | | + +-------+ + + + | MPV | 10.2 | 9.4 - 12.4 FL | EXTERNAL | | | | | | LAB | | + +-------+ + + + | % Segmented | 57.7 | 42.0 - 76.0 % | EXTERNAL | | | | | | LAB | | | Neutrophils | | | | | + +-------+ + + + | % | 32.2 | 20.0 - 40.0 % | EXTERNAL | | | Lymphocytes | | | LAB | | + +-------+ + + + | % Monocytes | 7.2 | 3.0 - 13.0 % | EXTERNAL | | | | | | LAB | | + +-------+ + + + | % | 2.5 | 0.0 - 7.0 % | EXTERNAL | | | Eosinophils | | | LAB | | + +-------+ + + + | % Basophils | 0.3 | 0.0 - 2.0 % | EXTERNAL | | | | | | LAB | | + +-------+ + + + | % Immature | 0.1 | 0.0 - 0.5 % | EXTERNAL | | | Granulocyte | | | LAB | | | s | | | | | + +-------+ + + + | % nRBC | 0 | 0.0 - 0.2 /100 | EXTERNAL | | | | | WBC | LAB | | + +-------+ + + + | Absolute | 4.31 | 2.80 - 7.70 | EXTERNAL | | | Neutrophils | | 1000/mm3 | LAB | | + +-------+ + + + | Absolute | 2.41 | 1.20 - 3.30 | EXTERNAL | | | Lymphocytes | | 1000/mm3 | LAB | | + +-------+ + + + | Absolute | 0.54 | 0.00 - 0.80 | EXTERNAL | | | Monocytes | | 1000/mm3 | LAB | | + +-------+ + + + | Absolute | 0.19 | 0.00 - 0.70 | EXTERNAL | | | Eosinophils | | 1000/mm3 | LAB | | + +-------+ + + + | Absolute | 0.03 | 0.00 - 0.20 | EXTERNAL | | | Basophils | | 1000/mm3 | LAB | | + +-------+ + + + | Absolute | 0.03 | 0.00 - 0.15 | EXTERNAL | | | Immature | | 1000/mm3 | LAB | | | Granulocyte | | | | | | s | | | | | + +-------+ + + + | Absolute | 0.01 | 0.00 - 0.01 | EXTERNAL | | | nRBC | | 1000/mm3 | LAB | | + +-------+ + + + | SLIDE | NO | | EXTERNAL | | | REVIEWED | | | LAB | | + +-------+ + + + + + | Specimen | + + | | + + + +---------+ + + | Performing | Address | City/State/Zipcode | Phone Number | | Organization | | | | + +---------+ + + | EXTERNAL LAB | | | | + +---------+ + + Magnesium (05/01/2017 2:54 PM PDT) + +-------+ + + + | Component | Value | Ref Range | Performed | Pathologist | | | | | At | Signature | + +-------+ + + + | Magnesium | 1.7 | 1.8 - 2.4 mg/dL | EXTERNAL | | | | | | LAB | | + +-------+ + + + + + | Specimen | + + | | + + + +---------+ + + | Performing | Address | City/State/Zipcode | Phone Number | | Organization | | | | + +---------+ + + | EXTERNAL LAB | | | | + +---------+ + + Lipase (05/01/2017 2:54 PM PDT) + +-------+ + + + | Component | Value | Ref Range | Performed | Pathologist | | | | | At | Signature | + +-------+ + + + | Lipase | 185 | 73 - 393 U/L | EXTERNAL | | | | | | LAB | | + +-------+ + + + + + | Specimen | + + | | + + + +---------+ + + | Performing | Address | City/State/Zipcode | Phone Number | | Organization | | | | + +---------+ + + | EXTERNAL LAB | | | | + +---------+ + + Comprehensive Metabolic Panel (05/01/2017 2:54 PM PDT) + +-------+ + + + | Component | Value | Ref Range | Performed | Pathologist | | | | | At | Signature | + +-------+ + + + | Sodium | 139 | 132 - 143 | EXTERNAL | | | | | mmol/L | LAB | | + +-------+ + + + | Potassium | 3.4 | 3.3 - 4.9 | EXTERNAL | | | | | mmol/L | LAB | | + +-------+ + + + | Cl | 106 | 95 - 108 mmol/L | EXTERNAL | | | | | | LAB | | + +-------+ + + + | CO2 | 25 | 23 - 34 mmol/L | EXTERNAL | | | | | | LAB | | + +-------+ + + + | Anion Gap | 8 | 7 - 16 | EXTERNAL | | | | | | LAB | | + +-------+ + + + | Calcium | 8.3 | 8.3 - 10.0 | EXTERNAL | | | | | mg/dL | LAB | | + +-------+ + + + | Glucose | 94 | 70 - 110 mg/dL | EXTERNAL | | | | | | LAB | | + +-------+ + + + | BUN, Bld | 27 | 5 - 26 mg/dL | EXTERNAL | | | | | | LAB | | + +-------+ + + + | Creatinine | 1.54 | 0.70 - 1.40 | EXTERNAL | | | | | mg/dL | LAB | | + +-------+ + + + | BUN/Creatin | 17.5 | 7.0 - 24.0 | EXTERNAL | | | ine Ratio | | RATIO | LAB | | + +-------+ + + + | GFR | 45 | >=60 | EXTERNAL | | | ESTIMATE | | mL/min/1.73m2 | LAB | | + +-------+ + + + | Bilirubin, | 0.4 | <=1.2 mg/dL | EXTERNAL | | | Total | | | LAB | | + +-------+ + + + | Protein, | 6.6 | 6.6 - 8.5 g/dL | EXTERNAL | | | Total | | | LAB | | + +-------+ + + + | Albumin | 3.4 | 3.0 - 4.5 g/dL | EXTERNAL | | | | | | LAB | | + +-------+ + + + | Alkaline | 56 | 46 - 116 U/L | EXTERNAL | | | Phosphatase | | | LAB | | + +-------+ + + + | ALT, | 19 | 16 - 63 U/L | EXTERNAL | | | External | | | LAB | | + +-------+ + + + | AST, | 18 | <=38 U/L | EXTERNAL | | | External | | | LAB | | + +-------+ + + + + + | Specimen | + + | | + + + +---------+ + + | Performing | Address | City/State/Zipcode | Phone Number | | Organization | | | | + +---------+ + + | EXTERNAL LAB | | | | + +---------+ + + XR Chest 2 VW (05/01/2017 11:43 AM PDT) + + | Specimen | + + | | + + + + + | Narrative | Performed At | + + + | EXAMINATION: CHEST PA & LAT (2V) HISTORY: Prolonged episode of | | | weakness and near-syncope COMPARISON STUDY: CT thorax 04/28/2017 | | | FINDINGS: The lungs are hyperinflated. If the lungs | | | demonstrated a reticulated appearance. Prior CT study demonstrates | | | extensive emphysematous change. Heart size is normal. No lobar | | | consolidation or effusion is seen.. IMPRESSION: 1. No acute | | | finding. 2. Severe emphysematous change. JOB #: [id number] | | | Digitally Released by: Faye Quintero Read By: FAYE Vallejo | | | MD DAY Date: 05/01/2017 16:06 | | + + + + + | Procedure Note | + + | Ishaan, Rad Results In - 11/02/2017 1:04 PM PST EXAMINATION: | | CHEST PA & LAT (2V) | | | | HISTORY: | | Prolonged episode of weakness and near-syncope | | | | COMPARISON STUDY: | | CT thorax 04/28/2017 | | | | FINDINGS: | | The lungs are hyperinflated. If the lungs demonstrated a reticulated | | appearance. Prior CT study demonstrates extensive emphysematous change. | | Heart size is normal. No lobar consolidation or effusion is seen.. | | | | IMPRESSION: | | 1. No acute finding. | | 2. Severe emphysematous change. | | | | | | JOB #: [id number] | | Digitally Released by: Faye Quintero | | | | | | Read By: FAYE QUINTERO MD | | Date: 05/01/2017 16:06 | | | + + CT Angiogram Head w Contrast (05/01/2017 11:43 AM PDT) + + | Specimen | + + | | + + + + + | Narrative | Performed At | + + + | EXAMINATION: CTA HEAD without and with contrast HISTORY: | | | Generalized weakness with near syncope and posterior headache | | | COMPARISON STUDY: No comparison. TECHNIQUE: 5 mm axial slices | | | were acquired through the brain precontrast. 0.6 mm axial slices | | | were acquired through the brain during an arterial phase of contrast. | | | There was no post contrast reaction. Multiplanar MIP | | | reconstructions were performed. DOSE REPORT: CTDIvol: 54.3 - | | | 97.4 mGy. DLP: 2213 mGy-cm. Automated exposure control was | | | utilized. FINDINGS: Noncontrast images demonstrate no | | | intracranial hemorrhage. Mild periventricular and subcortical white | | | matter decreased attenuation is noted on the noncontrast series. | | | No abnormal intracranial enhancement is seen. No [place] | | | aneurysm is demonstrated. The mucosal thickening involving the | | | ethmoid air cells and left maxillary sinus is noted. Mucosal | | | thickening is present at the base of the frontal sinuses. The | | | mastoid air cells and middle ears are clear. IMPRESSION: 1. No | | | acute intracranial process. 2. Paranasal sinus disease as above. 3. | | | Mild white matter changes nonspecific but most typically associated | | | with microvascular disease. JOB #: [id number] Digitally Released | | | by: Faye Quintero Read By: FAYE QUINTERO MD Date: | | | 05/01/2017 14:27 | | + + + + + | Procedure Note | + + | Ishaan, Rad Results In - 11/02/2017 1:04 PM PST EXAMINATION: | | CTA HEAD without and with contrast | | | | HISTORY: | | Generalized weakness with near syncope and posterior headache | | | | COMPARISON STUDY: | | No comparison. | | | | TECHNIQUE: | | 5 mm axial slices were acquired through the brain precontrast. 0.6 mm axial | | slices were acquired through the brain during an arterial phase of contrast. | | There was no post contrast reaction. Multiplanar MIP reconstructions were | | performed. | | | | DOSE REPORT: | | CTDIvol: 54.3 - 97.4 mGy. DLP: 2213 mGy-cm. Automated exposure control was | | utilized. | | | | FINDINGS: | | Noncontrast images demonstrate no intracranial hemorrhage. Mild | | periventricular and subcortical white matter decreased attenuation is noted on | | the noncontrast series. | | | | No abnormal intracranial enhancement is seen. No [place] aneurysm is | | demonstrated. | | | | The mucosal thickening involving the ethmoid air cells and left maxillary | | sinus is noted. Mucosal thickening is present at the base of the frontal | | sinuses. | | | | The mastoid air cells and middle ears are clear. | | | | IMPRESSION: | | 1. No acute intracranial process. | | 2. Paranasal sinus disease as above. | | 3. Mild white matter changes nonspecific but most typically associated with | | microvascular disease. | | | | | | JOB #: [id number] | | Digitally Released by: Faye Quintero | | | | | | Read By: FAYE QUINTERO MD | | Date: 05/01/2017 14:27 | | | + + documented in this encounter Visit Diagnoses Not on filedocumented in this encounter"
--- OUTSIDE RECORDS SUMMARY | ~2019-09-01 | XMS | Encounter Summary ---
Demographics + + + | Address | [address] | | | [place] [address] | + + + | Home Phone | | + + + | Preferred Language | Unknown | + + + | Marital Status | | + + + | Jainism Affiliation | Unknown | + + + | Race | Unknown | + + + | Ethnic Group | Unknown | + + + Author + + + | Author | [facility] | | | and [place] | + + + | Organization | [facility] | | | and [...] Team Providers + +------+ + | Care Dispatcher Motor Vehicle Name | Role | Phone | + +------+ + | Aric Palmer | PCP | | | PA-C | | | + +------+ + Reason for Visit +---------+ + | Reason | Comments | +---------+ + | Results | | +---------+ + Encounter Details +--------+ + + + + | Date | Type | Department | Care Team | Description | +--------+ + + + + | 10/17/ | Telephone | [facility] | Aric Palmer | Results | | 2018 | | [facility] | [address] | | | | | [address] | [facility] [place], | | | | | [facility], [place], | [place] [address] | | | | | [place] [address] | [phone] | | | | | [phone] | | | +--------+ + + + [...]
--- OUTSIDE RECORDS SUMMARY | ~2019-09-01 | XMS | Encounter Summary ---
Demographics + + + | Address | [address] | | | [place] [address] | + + + | Home Phone | | + + + | Preferred Language | Unknown | + + + | Marital Status | | + + + | Oriental Orthodox Affiliation | Unknown | + + + | Race | Unknown | + + + | Ethnic Group | Unknown | + + + Author + + + | Author | [facility] | | | and [place] | + + + | Organization | [facility] | | | and [...] Team Providers + +------+ + | Care Medical Management Specialist Name | Role | Phone | + +------+ + PCP | Unavailable | + +------+ + Encounter Details +--------+ + + + + | Date | Type | Department | Care Team | Description | +--------+ + + + + | 04/07/ | Hospital | [facility] | Jacklyn [place] | | | 2009 | Encounter | [facility] [address] | [address] | | | | | [address] [place] | [address] | | | | | [place] | [place] [address] | | | | | [address] | [phone] | | | | | [phone] | | | +--------+ + + + [...]
--- OUTSIDE RECORDS SUMMARY | ~2019-09-01 | XMS | Encounter Summary ---
Demographics + + + | Address | [address] | | | [place] [address] | + + + | Home Phone | | + + + | Preferred Language | Unknown | + + + | Marital Status | | + + + | Jewish Affiliation | Unknown | + + + | Race | Unknown | + + + | Ethnic Group | Unknown | + + + Author + + + | Author | [facility] | | | and [place] | + + + | Organization | [facility] | | | and [place] [...] Team Providers + +------+ + | Care Engineered Wood Designer Name | Role | Phone | + +------+ + | Faith Rodríguez NP | PCP | | + +------+ + Reason for Visit + + + | Reason | Comments | + + + | Referral | | | (PreAuthorization) | | + + + Encounter Details +--------+ + + + + | Date | Type | Department | Care Team | Description | +--------+ + + + + | 08/17/ | Telephone | [facility] | Faith Rodríguez | Referral | | 2017 | | [facility] | [address], [address] | (PreAuthorization) | | | | [address] | [facility] | | | | | [facility], | [place], [place] [address] | | | | | [place] [address] | [phone] | | | | | [phone] | | | +--------+ + + + [...]
--- OUTSIDE RECORDS SUMMARY | ~2019-09-01 | XMS | Encounter Summary ---
Demographics + + + | Address | [address] | | | [place] [address] | + + + | Home Phone | | + + + | Preferred Language | Unknown | + + + | Marital Status | | + + + | Presybeterian Affiliation | Unknown | + + + | Race | Unknown | + + + | Ethnic Group | Unknown | + + + Author + + + | Author | [facility] | | | and [place] | + + + | Organization | [facility] | | | and [place] [...] Team Providers + +------+ + | Care Dough Molder Name | Role | Phone | + +------+ + PCP | Unavailable | + +------+ + Encounter Details +--------+ + + + + | Date | Type | Department | Care Team | Description | +--------+ + + + + | 04/20/ | Hospital | [facility] | Faith Rodríguez | | | 2016 | Encounter | [facility] X[facility] [address] | [address] | | | | | [address] | [facility] | | | | | [place] | [place] [address] | | | | | [address] | [phone] | | | | | [phone] | | | +--------+ + + + [...] XR CHEST 2 VIEWS | Routin | 04/20/2017 | | Results for this | | | e | 9:36 AM | | procedure are in the | | | | PDT | | results section. | + +--------+ + + + documented in this encounter Results XR Chest 2 VW (04/20/2017 9:36 AM PDT) + + | Specimen | + + | | + + + + + | Narrative | Performed At | + + + | EXAMINATION: CHEST PA & LAT (2V) HISTORY: CHRONIC COUGH, COPD | | | COMPARISON STUDY: None. FINDINGS: The lung markings appear | | | reticulated. No lobar consolidation is seen. The diaphragm is | | | flattened. Heart size is normal. At the right upper lobe seen | | | projecting over the anterior 3rd rib an approximate 4 mm opacity is | | | demonstrated. IMPRESSION: 1. The lungs appear reticulated which | | | can be seen with emphysematous lung process. 2. Findings suspicious | | | for right upper lobe nodule. CT of the thorax is recommended. 3. | | | No acute finding identified. JOB #: [id number] Digitally Released | | | by: Faye Quintero Read By: FAYE QUINTERO MD Date: | | | 04/20/2017 10:53 | | + + + + + | Procedure Note | + + | Ishaan, Rad Results In - 11/02/2017 12:58 PM PST EXAMINATION: | | CHEST PA & LAT (2V) | | | | HISTORY: | | CHRONIC COUGH, COPD | | | | COMPARISON STUDY: | | None. | | | | FINDINGS: | | The lung markings appear reticulated. No lobar consolidation is seen. The | | diaphragm is flattened. Heart size is normal. At the right upper lobe seen | | projecting over the anterior 3rd rib an approximate 4 mm opacity is | | demonstrated. | | | | IMPRESSION: | | 1. The lungs appear reticulated which can be seen with emphysematous lung | | process. | | 2. Findings suspicious for right upper lobe nodule. CT of the thorax is | | recommended. | | 3. No acute finding identified. | | | | | | JOB #: [id number] | | Digitally Released by: Faye Quintero | | | | | | Read By: FAYE QUINTERO MD | | Date: 04/20/2017 10:53 | | | + + documented in this encounter Visit Diagnoses Not on filedocumented in this encounter"
--- OUTSIDE RECORDS SUMMARY | ~2019-09-01 | XMS | Encounter Summary ---
Demographics + + + | Address | [address] | | | [place] [address] | + + + | Home Phone | | + + + | Preferred Language | Unknown | + + + | Marital Status | | + + + | Sikhism Affiliation | Unknown | + + + | Race | Unknown | + + + | Ethnic Group | Unknown | + + + Author + + + | Author | [facility] | | | and [place] | + + + | Organization | [facility] | | | and [place] [...] Team Providers + +------+ + | Care Vp Of Digital Marketing Name | Role | Phone | + +------+ + PCP | Unavailable | + +------+ + Encounter Details +--------+ + + + + | Date | Type | Department | Care Team | Description | +--------+ + + + + | 07/08/ | Hospital | [facility] | Jacklyn [place] | | | 2009 | Encounter | [facility] X[facility] [address] | [address] | | | | | [address] | [address] | | | | | [place] | [place] [address] | | | | | [address] | [phone] | | | | | [phone] | | | +--------+ + + + [...]
--- OUTSIDE RECORDS SUMMARY | ~2019-09-01 | XMS | Encounter Summary ---
Demographics + + + | Address | [address] | | | [place] [address] | + + + | Home Phone | | + + + | Preferred Language | Unknown | + + + | Marital Status | | + + + | Temple Affiliation | Unknown | + + + | Race | Unknown | + + + | Ethnic Group | Unknown | + + + Author + + + | Author | [facility] | | | and [place] | + + + | Organization | [facility] | | | and [...] Team Providers + +------+ + | Care Office Machine Mechanic Name | Role | Phone | + +------+ + | Faith Rodríguez NP | PCP | | + +------+ + Reason for Visit + + + | Reason | Comments | + + + | Follow-up | | + + + Follow Up (Routine) +--------+--------+ + + + + | Status | Reason | Specialty | Diagnoses / | Referred By | Referred To | | | | | Procedures | Contact | Contact | +--------+--------+ + + + + | Closed | | Cardiology | Diagnoses | Rodríguez, | Maxood, | | | | | Abdominal | Faith D, | Deangelo | | | | | aortic | NURSES AIDE ONE | MD Brendan | | | | | aneurysm, | [facility] | [address] | | | | | without | [address] [place] | [address] [place] | | | | | rupture | [place], [place] | [place], [place] | | | | | (HCC) | [address] | [address] Phone: | | | | | Essential | Phone: | [phone] | | | | | (primary) | [phone] | Fax: | | | | | hypertension | Fax: | [phone] | | | | | | [phone] | | | | | | Hyperlipidem | | | | | | | ia, | | | | | | | unspecified | | | | | | | Procedures | | | | | | | FUP | | | +--------+--------+ + + + + Encounter Details +--------+---------+ + + + | Date | Type | Department | Care Team | Description | +--------+---------+ + + + | 03/22/ | Office | [facility] | Maxood, Deangelo | Abdominal aortic | | 2018 | Visit | CARDIOLOGY [address] | MD Brendan [address] | aneurysm (AAA) | | | | [address] [place], | [address] [place] | without rupture | | | | [place] [address] | [place] [address] | (HCC) (Primary Dx); | | | | [phone] | [phone] | Essential | | | | | | hypertension; | | | | | | Hyperlipidemia, | | | | | | unspecified | | | | | | hyperlipidemia type; | | | | | | Tobacco use | | | | | | disorder | +--------+---------+ + + + Social History [...] + + + | Blood Pressure | 114/68 | 03/22/2018 10:24 AM | | | | | PDT | | + + + + + | Pulse | 68 | 03/22/2018 10:24 AM | | | | | PDT | | + + + + + | Temperature | - | - | | + + + + + | Respiratory Rate | 16 | 03/22/2018 10:24 AM | | | | | PDT | | + + + + + | Oxygen Saturation | - | - | | + + + + + | Inhaled Oxygen | - | - | | | Concentration | | | | + + + + + | Weight | 64.8 kg (142 lb 13.7 | 03/22/2018 10:24 AM | | | | oz) | PDT | | + + + + + | Height | 175.3 cm (5' 9") | 03/22/2018 10:24 AM | | | | | PDT | | + + + + + | Body Mass Index | 21.1 | 03/22/2018 10:24 AM | | | | | PDT | | + + + + + documented in this encounter Progress Notes Deangelo Little MD - 03/22/2018 10:30 AM PDTFormatting of this note might be differe nt from the original. PATIENT NAME: Saturnino Avila : 1945: AGE: 72 y.o. REFERRED BY: Deangelo Little PRIMARY CARE: Faith Rodríguez NP CARDIOLOGY OFFICE VISIT Date of Service: 03/22/18 HISTORY OF PRESENT ILLNESS: Saturnino Avila is a 72 y.o. male with a history of heart failure, severe emphysema, prior a nteroseptal [place] and strokes, heavy tobacco use, abdominal aortic aneurysm and lower extremity PAD status post prior surgical revascularization, malnutrition and ventral hernia. He is b yobani seen today for a follow-up visit. Since our last visit, patient has not undergone eliseo ia repair surgery. He continues to smoke, albeit perhaps less. He states that he did final ly undergo his PET scan and does not believe it revealed any concerning abnormalities. He d enies any chest pain or exertional symptoms. Pertinent historical clinical information: Patient was initially seen for further evaluation given his history of severe systolic dysf unction, heart failure, and preoperative assessment prior to possible ventral hernia repair. He was also recently seen by pulmonology given his history of heavy tobacco use, COPD and severe emphysema. He is moderately active, however limited with exertional dyspnea. He denies chest pains pe r se. He has managed to cut back his smoking to about one pack per day. He believes that bre toure has known about heart failure in the past but denies any previous invasive workup or revas cularization. He is not a very good historian. He also admits to a fair amount of alcohol use. MEDICAL, SURGICAL, AND PERSONAL HISTORY Past Medical History: Diagnosis Date AAA (abdominal aortic aneurysm) (HCC) Acid reflux disease Joyce's esophagus Benign thyroid cyst Chronic low back pain COPD (chronic obstructive pulmonary disease) (HCC) DJD (degenerative joint disease) BANUELOS (dyspnea on exertion) Hernia of anterior abdominal wall Hx of colonic polyps Hyperlipidemia Hypertension Osteoporosis Pneumonia Past Surgical History: Procedure Laterality Date ABDOMINAL AORTIC ANEURYSM REPAIR BACK SURGERY COLONOSCOPY HERNIA REPAIR THYROID BIOPSY 05/30/2017 Procedure: US GUIDED THYROID BIOPSY - Location: [facility] UPPER GASTROINTESTINAL ENDOSCOPY Family History Problem Relation Age of Onset Lung cancer Mother Hypertension Mother Lung cancer Father Family Status Relation Status Mother Father Social History Social History Marital status: Spouse name: N/A Number of children: N/A Years of education: N/A Social History Main Topics Smoking status: Current Every Day Smoker Packs/day: 1.00 Years: 62.00 Types: Cigarettes Start date: 05/19/1955 Smokeless tobacco: Never Used Alcohol use Yes Drug use: No Sexual activity: Not Currently Other Topics Concern None Social History Narrative None CURRENT MEDICATIONS Current Outpatient Prescriptions Medication Sig Dispense Refill albuterol (PROVENTIL HFA) 90 mcg/puff inhaler Inhale 2 puffs into the lungs every 4 jonnie rs as needed for Wheezing or Shortness of Breath. B Complex Vitamins (VITAMIN B COMPLEX) tablet Take 1 tablet by mouth Daily. Calcium Carb-Cholecalciferol (CALCIUM 500 +D) 500-400 MG-UNIT TABS Take 2 tablets by mo uth Daily. capsaicin (ZOSTRIX) 0.025% cream Apply topically Daily. carvedilol (COREG) 6.25 mg tablet Take 1 tablet by mouth 2 times daily (with breakfast & dinner). 180 tablet 3 clopidogrel (PLAVIX) 75 mg tablet Take 1 tablet by mouth Daily. 90 tablet 3 cyclobenzaprine (FLEXERIL) 10 mg tablet Take 10 mg by mouth 3 times daily as needed for Muscle spasms. EPINEPHrine auto-injector (EPIPEN 2-TERRI) 0.3 mg/0.3 mL injection Inject 0.3 mg into the muscle as needed for Anaphylaxis. fluocinonide (LIDEX) 0.05% cream Apply topically Daily. gabapentin (NEURONTIN) 300 mg capsule Take 900 mg by mouth 3 times daily. HYDROcodone-acetaminophen (NORCO) 5-325 mg per tablet Take 2 tablets by mouth 2 times d aily for 28 days. Please ship medication via [facility] to: Saturnino Duran [address] [place], [place] [address] 120 tablet 0 lisinopril (PRINIVIL,ZESTRIL) 40 MG tablet Take 40 mg by mouth Daily. nitroglycerin (NITROSTAT) 0.[address] [...] by mouth 2 times daily. 60 capsule 2 prazosin (MINIPRESS) 2 MG capsule Take 1 capsule by mouth 2 times daily. 60 capsule 11 simvastatin (ZOCOR) 80 mg tablet Take 80 mg by mouth nightly. tiotropium-olodaterol (STIOLTO RESPIMAT) 2.5-2.5 mcg/puff inhaler Inhale 2 puffs into t he lungs Daily. 1 Inhaler 2 traZODone (DESYREL) 100 mg tablet Take 1 tablet by mouth nightly. Take 2 tablets at nig ht 30 tablet No current facility-administered medications for this visit. ALLERGIES Allergies Allergen Reactions Aspirin Nausea Only and Swelling Bee Venom Anaphylaxis Uncoded Nonscreenable Allergen [place], patient states he gets red spots and they burn and get itchy. Codeine Nausea And Vomiting ROS I have reviewed the Review of Systems form dated today and scanned into the media tab. OBJECTIVE: PHYSICAL EXAM BP 114/68 | Pulse 68 | Resp 16 | Ht 1.753 m (5' 9") | Wt 64.8 kg (142 lb 13.7 oz) | BM I 21.10 kg/m Physical Exam Constitutional: He appears well-developed and well-nourished. No distress. Cardiovascular: Normal rate, regular rhythm, S1 normal, S2 normal, normal heart sounds, int act distal pulses and normal pulses. Occasional extrasystoles are present. Pulses: Carotid pulses are 2+ on the right side, and 2+ on the left side. Radial pulses are 2+ on the right side, and 2+ on the left side. Pulmonary/Chest: Effort normal and breath sounds normal. Musculoskeletal: He exhibits no edema. Skin: No cyanosis. Nails show no clubbing. Vitals reviewed. ECG: Reviewed by me 2017 shows sinus rhythm, heart rate 66, PACs, RBBB/LAFB bifascicular block, old anteroseptal infarction with diffuse ST segment abnormalities and septal Q wave. LAB RESULTS: LIPID Lab Results Component Value Date LDLEX 43 09/05/2016 HDLEX 28 09/05/2016 TRIGEX 88 09/05/2016 CHOLEX 89 09/05/2016 CHEMISTRY Lab Results Component Value Date GLU 96 11/27/2017 GLUEX 100 06/13/2017 NA 145 (H) 11/27/2017 NAEX 137 06/13/2017 K 4.1 11/27/2017 KEX 3.5 06/13/2017 CL 108 11/27/2017 CLEX 102 06/13/2017 CO2 30 11/27/2017 CO2EX 27 06/13/2017 CALCIUM 8.7 11/27/2017 ALKPHOS 59 07/20/2017 ASTEX 21 07/20/2017 ALTEX 23 07/20/2017 CREA 0.81 11/27/2017 BUN 17 11/27/2017 EGFREX >60 06/13/2017 CREEX 0.95 06/13/2017 HEMATOLOGY Lab Results Component Value Date WBC 6.4 06/13/2017 WBCEX 6.4 06/13/2017 HGBEX 13.9 06/13/2017 HCTEX 39.9 06/13/2017 PLTEX NORMAL 06/13/2017 I previously reviewed records from PCP for office visit on 06/13/17 and again 09/21/17 and p ulmonary consultation and 09/19/17. Echocardiogram 08/04/17 reviewed by me with the patient today notable for mildly enlarged L V with moderate to severe systolic dysfunction, LVEF 35-40% with global hypokinesis, grade 2 diastolic dysfunction, mild MR and moderate AI. CT of chest July 2017 results reviewed by me with the patient today notable for severe e mphysematous changes right upper lobe nodular opacity malignancy versus scar, coronary ath erosclerosis, aortic valve atherosclerosis descending thoracic aorta mural thrombus. Nuclear stress perfusion imaging study December 2017 interpreted and reviewed by me with the p atient today notable for LVEF 46%, moderate inferoapical fixed perfusion defect without sign ificant additional ischemic abnormality. ASSESSMENT: 1. CAD/ischemic cardiomyopathy - patient has ECG evidence of prior anteroseptal myocardial infarction and has evidence of mild to moderate LV systolic dysfunction. His stress perfus ion imaging study was notable for a moderate sized fixed inferoapical defect without signifi cant additional ischemia. He has been chest pain-free. He is a poor candidate for attempte d revascularization especially in light of increased perioperative risk for any attempts at surgical revascularization given his underlying severe emphysema and malnutrition, and given his history of established severe peripheral arterial disease especially aortic disease the re is additional increased risk associated with attempts at invasive approach. For now focu s will remain on optimizing medical therapy of ischemic cardiomyopathy and further elucidati on of his pulmonary picture regarding possible presence of underlying malignancy. He states that his recent PET scan was negative for malignancy. He is tolerating clopidogrel 75 mg daily as well as carvedilol at 6.25 mg BID, which can be up titrated as tolerated. He did not check a BNP. His blood pressure demonstrates signifi cantly improved control. From a cardiovascular standpoint, there is no indication for further, invasive workup at th is point, certainly not justified prior to undergoing her relatively low risk surgery, and h e is on a good medical regimen. He should continue to see us annually or sooner if there ar e significant clinical changes. 2. Peripheral arterial disease - patient describes having had repeat surgical revasculariz ation of an underlying AAA as well as possible iliofemoral PAD/aneurysm. No details are lesley ilable for review and is a poor historian. We will focus on medical therapy as detailed abo ve for now. 3. Tobacco cessation - this was discussed at length with the patient today - greater than 5 minutes. He is hopeful tibial to comply but does not feel very confident. PLAN: 1. No further cardiovascular diagnostics. 2. Continue current medications. 3. Continue pulmonary consultation and workup. 4. Tobacco cessation. 5. Follow-up visit in one year. Portions of this report were transcribed using voice recognition software. Every effort wa s made to ensure accuracy; however, inadvertent computerized integrated marketing specialist errors may be pre sent. Electronically signed by: Kya Little MD PhD [facility] 03/22/2018 documented in t his encounter Plan of Treatment Not on filedocumented as of this encounter Visit Diagnoses + + | Diagnosis | + + | Abdominal aortic aneurysm (AAA) without rupture (HCC) - Primary | + + | Essential hypertension Unspecified essential hypertension | + + | Hyperlipidemia, unspecified hyperlipidemia type | + + | Tobacco use disorder | + + documented in this encounter
--- OUTSIDE RECORDS SUMMARY | ~2019-09-01 | XMS | Encounter Summary ---
Demographics + + + | Address | [address] | | | [place] [address] | + + + | Home Phone | | + + + | Preferred Language | Unknown | + + + | Marital Status | | + + + | Faith Affiliation | Unknown | + + + | Race | Unknown | + + + | Ethnic Group | Unknown | + + + Author + + + | Author | [facility] | | | and [place] | + + + | Organization | [facility] | | | and [...] Team Providers + +------+ + | Care Fruit Trimmer Name | Role | Phone | + [...] Description | +--------+--------+ + + + | 03/29/ | Refill | [place] [facility] | Nate Rodríguezher | Medication Refill | | 2018 | | [facility] | D, WILDLIFE REMOVAL SPECIALIST ONE | | | | | PRIMARY CARE [address] | [facility] | | | | | [facility], | [place] [address] | | | | | [place] [address] | [phone] | | | | | [phone] | | | +--------+--------+ + + + [...] + | Diagnosis | + + | Gastroesophageal reflux disease, esophagitis presence not specified | + + documented in this encounter"
--- OUTSIDE RECORDS SUMMARY | ~2019-09-01 | XMS | Encounter Summary ---
Demographics + + + | Address | [address] | | | [place] [address] | + + + | Home Phone | | + + + | Preferred Language | Unknown | + + + | Marital Status | | + + + | Yarsani Affiliation | Unknown | + + + | Race | Unknown | + + + | Ethnic Group | Unknown | + + + Author + + + | Author | [facility] | | | and [place] | + + + | Organization | [facility] | | | and [place] | [...] Team Providers + +------+ + | Care Sawsmith Name | Role | Phone | + +------+ + | Faith Rodríguez NP | PCP | | + +------+ + Reason for Visit + + + | Reason | Comments | + + + | Lab Results | | + + + Encounter Details +--------+ + + + + | Date | Type | Department | Care Team | Description | +--------+ + + + + | 05/11/ | Telephone | [place] [facility] | Faith Rodríguez | Lab Results | | 2018 | | [facility] | D, CUPOLA PATCHER ONE | | | | | PRIMARY CARE [address] | [facility] | | | | | [address] [facility], [place] | [place] [address] | | | | | [address] | [phone] | | | | | [phone] | | | +--------+ + + + [...]
--- OUTSIDE RECORDS SUMMARY | ~2019-09-01 | XMS | Encounter Summary ---
Demographics + + + | Address | [address] | | | [place] [address] | + + + | Home Phone | | + + + | Preferred Language | Unknown | + + + | Marital Status | | + + + | Tenriism Affiliation | Unknown | + + + | Race | Unknown | + + + | Ethnic Group | Unknown | + + + Author + + + | Author | [facility] | | | and [place] | + + + | Organization | [facility] | | | and [...] Team Providers + +------+ + | Care Worship Leader Name | Role | Phone | + +------+ + | Aric Palmer | PCP | | | PA-C | | | + +------+ + Reason for Visit + + + | Reason | Comments | + + + | Chronic Pain | pain management | + + + Encounter Details +--------+---------+ + + + | Date | Type | Department | Care Team | Description | +--------+---------+ + + + | 05/08/ | Office | [facility] | [facility] | Pain management | | 2019 | Visit | [facility] | [address] | (Primary Dx); | | | | [facility] [address] | [facility], | Pulmonary nodules; | | | | [facility], | [place] [address] | Tobacco use; Chronic | | | | [place] [address] | [phone] | midline low back | | | | [phone] | | pain with bilateral | | | | | | sciatica; | | | | | | Hyperlipidemia, | | | | | | unspecified | | | | | | hyperlipidemia type; | | | | | | Essential | | | | | | hypertension | +--------+---------+ + + + Social History [...] + + + | Blood Pressure | 99/81 | 05/08/2019 2:45 PM | | | | | PDT | | + + + + + | Pulse | 97 | 05/08/2019 2:45 PM | | | | | PDT | | + + + + + | Temperature | - | - | | + + + + + | Respiratory Rate | 18 | 05/08/2019 2:45 PM | | | | | PDT | | + + + + + | Oxygen Saturation | 95% | 05/08/2019 2:45 PM | | | | | PDT | | + + + + + | Inhaled Oxygen | - | - | | | Concentration | | | | + + + + + | Weight | 57.4 kg (126 lb 9.6 | 05/08/2019 2:45 PM | | | | oz) | PDT | | + + + + + | Height | 175.3 cm (5' 9") | 05/08/2019 2:45 PM | | | | | PDT | | + + + + + | Body Mass Index | 18.7 | 05/08/2019 2:45 PM | | | | | PDT | | + + + + + documented in this encounter Progress Notes Aric Palmer PA-C - 05/08/2019 2:45 PM PDTFormatting of this note might be di fferent from the original. Patient ID: Saturnino Avila is a 74 y.o. year old male Chief Complaint Patient presents with Chronic Pain pain management Assessment and Plan: Pulmonary nodules Repeat chest CT in September to assess stability of noted pulmonary nodules. Tobacco use Pt is smoking at least 1ppd He wakes up at 3 am and 5-30 am smokes 1-2 cigarettes and goes back to sleep. Pt advised of the dangers of smoking in bed. Advised to quit and spent 3-10 minutes counseling pt on cessation efforts. Chronic low back pain Multi-level degeneration. Continue [place] 5/325 2 tabs BID through [facility]. 3 prescriptions of #120 provided today. Will repeat a plain films of lumbar spine. No dedicated image study on file. Pt has yet t o get the imaging done. May consider other pain management techniques after review of plain films. BL sciatica is presents and gabapentin has been helping control this pain. 900 mg tid is th e current dose. UDS from 02/08 reviewed and is consistent with the prescribed opioid medications Hyperlipidemia Fish OIL 2 g po qhs Rx sent to [facility] Hypertension Decrease Lisinopril to 20 mg from 40 mg qd and re-assess in 4 weeks. RTC if symptoms do not improve, worsen or if concerns arise Subjective: Saturnino Avila is a very thin, alert and oriented 73-year-old white male who presents to the evening clinic for continued chronic pain management of lumbar and cervical degeneration. H is current chronic pain management plan consists of Wood[place] 5/3/25 2 tablets twice a day, Flex eril 10 mg up to 3 times a day, and gabapentin 900 mg 3 times a day. A review of Saturnino's ur inary drug screens show that he is consistent with his prescribed opioid medication. He rec eives his medications from the [facility]. Saturnino continues to smoke cigarettes and is NOT interested in quitting at this time. RTC in 3 months for continued chronic pain management. Today Saturnino's BP is low and he has lost weight. An adjustment to his Lisinopril will be mad e and re-assessed in a month's time. He denies any CP, SOB, BANUELOS, pedal edema at this time. Allergies Allergen Reactions Aspirin Nausea Only and Swelling Bee Venom Anaphylaxis Soap & Cleansers Swelling Rash/swelling Uncoded Nonscreenable Allergen Wood[place], patient states he gets red spots and they burn and get itchy. Codeine Nausea And Vomiting Current Outpatient Medications Medication Sig Dispense Refill albuterol 90 mcg/puff inhaler Inhale 2 puffs into the lungs every 6 hours as needed for Wheezing. 3 Inhaler 3 B Complex Vitamins (VITAMIN B COMPLEX) tablet [...] as needed for Muscle spasms. 270 tablet 3 EPINEPHrine auto-injector (EPIPEN 2-TERRI) 0.3 mg/0.3 mL injection Inject 0.3 mg into the muscle as needed for Anaphylaxis. fish oil 1,000 mg capsule Take 2 capsules by mouth nightly. Indications: Arthritis, Hig h Amount of Cholesterol in the Blood, High Blood Pressure Disorder, Inflammation, Joint Jossie ge causing Pain and Loss of Function 180 capsule 0 fluocinonide (LIDEX) 0.05% cream Apply topically Daily. 90 Application 3 gabapentin (NEURONTIN) 300 mg capsule Take 3 capsules by mouth 3 times daily. Indicatio ns: Neuropathic Pain 810 capsule 3 HYDROcodone-acetaminophen (NORCO) 5-325 mg per tablet Take 2 tablets by mouth 2 times d aily. Indications: Pain 120 tablet 0 lisinopril (PRINIVIL,ZESTRIL) 40 MG tablet Take 0.5 tablets by mouth Daily. 45 tablet 1 nitroglycerin (NITROSTAT) 0.[address] [...] (DESYREL) 100 mg tablet Take 1 tablet at night for insomnia Indications: Tro uble Sleeping 90 tablet 3 No current facility-administered medications for this visit. 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 Annual physical exam Moderate protein-calorie malnutrition Tobacco use Social History Socioeconomic History Marital status: Spouse name: Not on file Number of children: Not on file Years of education: Not on file Highest education level: Not on file Social Needs Financial resource strain: Not on file Food insecurity - worry: Not on file Food insecurity - inability: Not on file Transportation needs - medical: Not on file Transportation needs - non-medical: Not on file Occupational History Not on file Tobacco Use Smoking status: Current Every Day Smoker Packs/day: 2.00 Years: 62.00 Pack years: 124.00 Types: Cigarettes Start date: 05/19/1954 Smokeless tobacco: Never Used Substance and Sexual Activity Alcohol use: Yes Alcohol/week: 0.6 oz Types: 1 Shots of liquor per week Comment: every evening Drug use: Yes Types: Marijuana Comment: occasional Sexual activity: Not Currently Other Topics Concern Not on file Social History Narrative Not on file Family History Problem Relation Age of Onset Lung cancer Mother Hypertension Mother Lung cancer Father Review of Systems Constitutional: Negative. Negative for fatigue and unexpected weight change. HENT: Negative. Eyes: Negative. Respiratory: Negative. Negative for cough, shortness of breath and wheezing. Cardiovascular: Negative. Gastrointestinal: Negative. Endocrine: Negative. Genitourinary: Negative. Negative for difficulty urinating. Musculoskeletal: Positive for arthralgias, back pain and gait problem. Skin: Negative. Hematological: Negative. Psychiatric/Behavioral: Negative. Negative for agitation, behavioral problems and confusio n. All other systems reviewed and are negative. Objective: Vitals: BP 99/81 | Pulse 97 | Resp 18 | Ht 1.753 m (5' 9") | Wt 57.4 kg (126 lb 9.6 oz) | SpO2 95% | BMI 18.70 kg/m Physical Exam Constitutional: He is oriented to person, place, and time. He appears well-developed and we ll-nourished. No distress. Cardiovascular: Normal rate, regular rhythm, normal heart sounds and intact distal pulses. Exam reveals no gallop and no friction rub. No murmur heard. Pulmonary/Chest: Effort normal. No respiratory distress. He has decreased breath sounds in the right upper field, the right middle field, the right lower field, the left upper field, the left middle field and the left lower field. He has no wheezes. He has no rales. He exhib its no tenderness. Abdominal: Soft. There is no tenderness. Musculoskeletal: Right shoulder: He exhibits decreased range of motion, tenderness, bony tenderness, cr epitus and pain. Left shoulder: He exhibits decreased range of motion, tenderness, bony tenderness, cre pitus and pain. Cervical back: He exhibits tenderness, bony tenderness and pain. Lumbar back: He exhibits decreased range of motion, tenderness, bony tenderness, pain and spasm. Neurological: He is alert and oriented to person, place, and time. Skin: Skin is warm and dry. He is not diaphoretic. Psychiatric: He has a normal mood and affect. His behavior is normal. Pt here for PMV. Had to go home to get his pills. Returned with them shortly after with a c ount of 50 tabs of hydrocodone 5mg/ acetaminophen 325. Still unable to provide a urine sampl e for testing. Pain level 4/10 to lower back. Aric Palmer PA-C This note was transcribed using voice recognition software; there may be speech recognition which escaped detection during proofreading. Electronically signed by: Aric Palmer PA-C 05/08/2019 16:29 documented in this encounter Plan of Treatment + +------+--------+ + + | Name | Type | Priori | Associated Diagnoses | Order Schedule | | | | ty | | | + +------+--------+ + + | Drugs of Abuse, | Lab | Routin | Pain management | 52 Occurrences | | Panel, Pain | | e | | starting 05/08/2019 | | Management 1 | | | | until 05/08/2020, 2 | | | | | | completed | + +------+--------+ + + documented as of this encounter Results Drugs of Abuse, Panel, Pain Management 1 (06/12/2019 4:07 PM PDT) + + + + + + | Component | Value | Ref Range | Performed | Pathologist | | | | | At | Signature | + + + + + + | Creatinine | 244.5 | >=20.0 mg/dL | REFERENCE | | | | | | [facility] | | | | | | [facility] | | | | | | - [place] | | | | | | [place] | | + + + + + + | pH, Urine | 5.7 | 4.5 - 9.0 | REFERENCE | | | | | | [facility] | | | | | | [facility] | | | | | | - [place] | | | | | | [place] | | + + + + + + | Oxidants | NEGATIVE | <200 mcg/mL | REFERENCE | | | Screen, | | | [facility] | | | Urine | | | DI[facility]NO[facility] | | | | | | - [place] | | | | | | [place] | | + + + + + + | Amphetamine | NEGATIVE | <500 ng/mL | REFERENCE | | | Screen, | | | [facility] | | | Urine | | | DIAGNO[facility] | | | | | | - [place] | | | | | | [place] | | + + + + + + | Amphetamine | CONSISTENT | | REFERENCE | | | s medMATCH | | | [facility] | | | | | | [facility] | | | | | | - [place] | | | | | | [place] | | + + + + + + | Barbiturate | NEGATIVE | <300 ng/mL | REFERENCE | | | s Screen, | | | [facility] | | | Urine | | | DIAGNOST[facility] | | | | | | - [place] | | | | | | [place] | | + + + + + + | Barbiturate | CONSISTENT | | REFERENCE | | | s medMATCH | | | [facility] | | | | | | [facility] | | | | | | - [place] | | | | | | [place] | | + + + + + + | Benzodiazep | NEGATIVE CONFIRMED | <100 ng/mL | REFERENCE | | | wendi | | | [facility] | | | Screen, | | | DIAGNOSTICS | | | Urine | | | - [place] | | | | | | [place] | | + + + + + + | ALPHA-HYDRO | NEGATIVE | <25 ng/mL | REFERENCE | | | XYALPRAZOLA | | | [facility] | | | M.UR.QN | | | DIAGNOSTICS | | | (REF) | | | - [place] | | | | | | [place] | | + + + + + + | aOH | CONSISTENT | | REFERENCE | | | alprazolam | | | [facility] | | | medMATCH | | | DIAGNOSTICS | | | | | | - [place] | | | | | | [place] | | + + + + + + | ALPHAHYDROX | NEGATIVE | <50 ng/mL | REFERENCE | | | YMIDAZOLAM. | | | [facility] | | | URINE.CONFI | | | DIAGNOSTICS | | | RM (REF) | | | - [place] | | | | | | [place] | | + + + + + + | aOH | CONSISTENT | | REFERENCE | | | midazolam | | | [facility] | | | medMATCH | | | DIAGNOSTICS | | | | | | - [place] | | | | | | [place] | | + + + + + + | ALPHA-HYDRO | NEGATIVE | <50 ng/mL | REFERENCE | | | XYTRIAZOLAM | | | [facility] | | | .URINE.CONF | | | DIAGNOSTICS | | | IRM (REF) | | | - [place] | | | | | | [place] | | + + + + + + | aOH | CONSISTENT | | REFERENCE | | | triazolam | | | [facility] | | | medMATCH | | | DIAGNOSTICS | | | | | | - [place] | | | | | | [place] | | + + + + + + | AMINOCLONAZ | NEGATIVE | <25 ng/mL | REFERENCE | | | EPAM.URINE. | | | [facility] | | | CONFIRM | | | DIAGNOSTICS | | | (REF) | | | - [place] | | | | | | [place] | | + + + + + + | Aminoclonaz | CONSISTENT | | REFERENCE | | | epam | | | [facility] | | | medMATCH | | | DIAGNOSTICS | | | | | | - [place] | | | | | | [place] | | + + + + + + | 2-HYDROXYET | NEGATIVE | <50 ng/mL | REFERENCE | | | HYLFLURAZEP | | | [facility] | | | AM UR QT | | | DIAGNOSTICS | | | | | | - [place] | | | | | | [place] | | + + + + + + | OH, Et | CONSISTENT | | REFERENCE | | | flurazepam | | | [facility] | | | medMATCH | | | DIAGNOSTICS | | | | | | - [place] | | | | | | [place] | | + + + + + + | Lorazepam | NEGATIVE | <50 ng/mL | REFERENCE | | | Confirm, | | | [facility] | | | Urine | | | DIAGNOSTICS | | | | | | - [place] | | | | | | [place] | | + + + + + + | Lorazepam | CONSISTENT | | REFERENCE | | | medMATCH | | | [facility] | | | | | | [facility]NOST[facility] | | | | | | - [place] | | | | | | [place] | | + + + + + + | Nordiazepam | NEGATIVE | <50 ng/mL | REFERENCE | | | , Urine, | | | [facility] | | | Conf | | | DIAGNOSTICS | | | | | | - [place] | | | | | | [place] | | + + + + + + | Nordiazepam | CONSISTENT | | REFERENCE | | | medMATCH | | | [facility] | | | | | | [facility]NOST[facility] | | | | | | - [place] | | | | | | [place] | | + + + + + + | Oxazepam | NEGATIVE | <50 ng/mL | REFERENCE | | | Confirm, | | | [facility] | | | Urine | | | DIAGNOSTICS | | | | | | - [place] | | | | | | [place] | | + + + + + + | Oxazepam | CONSISTENT | | REFERENCE | | | medMATCH | | | [facility] | | | | | | [facility]NOST[facility] | | | | | | - [place] | | | | | | [place] | | + + + + + + | Temazepam | NEGATIVE | <50 ng/mL | REFERENCE | | | Confirm, | | | [facility] | | | Urine | | | DIAGNOSTICS | | | | | | - [place] | | | | | | [place] | | + + + + + + | Temazepam | CONSISTENT | | REFERENCE | | | medMATCH | | | [facility] | | | | | | [facility] | | | | | | - [place] | | | | | | [place] | | + + + + + + | Marijuana | NEGATIVE | <20 ng/mL | REFERENCE | | | Metabolite | | | [facility] | | | | | | [facility] | | | | | | - [place] | | | | | | [place] | | + + + + + + | Marijuana | CONSISTENT | | REFERENCE | | | Metab | | | [facility] | | | medMATCH | | | DIAGNOST[facility] | | | | | | - [place] | | | | | | [place] | | + + + + + + | Cocaine | NEGATIVE | <150 ng/mL | REFERENCE | | | Metabolite | | | [facility] | | | | | | [facility] | | | | | | - [place] | | | | | | [place] | | + + + + + + | Cocaine | CONSISTENT | | REFERENCE | | | Metab | | | [facility] | | | medMATCH | | | DIAGNOST[facility] | | | | | | - [place] | | | | | | [place] | | + + + + + + | Methadone | NEGATIVE | <100 ng/mL | REFERENCE | | | Screen, | | | [facility] | | | Urine | | | DIAGNOSTICS | | | | | | - [place] | | | | | | [place] | | + + + + + + | Methadone | CONSISTENT | | REFERENCE | | | Metab | | | [facility] | | | medMATCH | | | DIAGNOSTICS | | | | | | - [place] | | | | | | [place] | | + + + + + + | Opiates | POSITIVE (A) | <100 ng/mL | REFERENCE | | | | | | [facility] | | | | | | [facility]ST[facility] | | | | | | - [place] | | | | | | [place] | | + + + + + + | Codeine | NEGATIVE | <50 ng/mL | REFERENCE | | | Confirm, | | | [facility] | | | Urine | | | DIAGNOSTICS | | | | | | - [place] | | | | | | [place] | | + + + + + + | Codeine | CONSISTENT | | REFERENCE | | | medMATCH | | | [facility] | | | | | | [facility]NOST[facility] | | | | | | - [place] | | | | | | [place] | | + + + + + + | Hydrocodone | 899 (H) | <50 ng/mL | REFERENCE | | | Confirm, | | | [facility] | | | Urine | | | DIAGNOSTICS | | | | | | - [place] | | | | | | [place] | | + + + + + + | Hydrocodone | INCONSISTENT | | REFERENCE | | | medMATCH | | | [facility] | | | | | | [facility] | | | | | | - [place] | | | | | | [place] | | + + + + + + | Hydromorpho | 252 (H) | <50 ng/mL | REFERENCE | | | ne, | | | [facility] | | | Confirm, | | | DIAGNOSTICS | | | Urine | | | - [place] | | | | | | [place] | | + + + + + + | Hydromorpho | INCONSISTENT See Note 1 | | REFERENCE | | | ne medMATCH | | | [facility] | | | | | | [facility]ST[facility] | | | | | | - [place] | | | | | | [place] | | + + + + + + | Morphine | NEGATIVE | <50 ng/mL | REFERENCE | | | Confirm, | | | [facility] | | | Urine | | | DIAGNOSTICS | | | | | | - [place] | | | | | | [place] | | + + + + + + | Morphine | CONSISTENT See Note 2 | | REFERENCE | | | medMATCH | | | [facility] | | | | | | [facility] | | | | | | - [place] | | | | | | [place] | | + + + + + + | Norhydrocod | 1690 (H) | <50 ng/mL | REFERENCE | | | one | | | [facility] | | | Confirm, | | | DIAGNOSTICS | | | Urine | | | - [place] | | | | | | [place] | | + + + + + + | Norhydrocod | See Note 3 | | REFERENCE | | | one | | | [facility] | | | medMATCH | | | DIAGNOSTICS | | | | | | - [place] | | | | | | [place] | | + + + + + + | Oxycodone, | NEGATIVE | <100 ng/mL | REFERENCE | | | UR | | | [facility] | | | | | | [facility] | | | | | | - [place] | | | | | | [place] | | + + + + + + | Oxycodone | CONSISTENT | | REFERENCE | | | medMATCH | | | [facility] | | | | | | [facility] | | | | | | - [place] | | | | | | [place] | | + + + + + + | Phencyclidi | NEGATIVE | <25 ng/mL | REFERENCE | | | ne, Screen, | | | [facility] | | | Urine | | | DIAGNOSTICS | | | | | | - [place] | | | | | | [place] | | + + + + + + | Phencyclidi | CONSISTENTComment: | | REFERENCE | | | ne medMATCH | Note 1: Hydromorphone is | | [facility] | | | | a metabolite of | | DIAGNOSTICS | | | | hydrocodone as well as a | | - [place] | | | | prescribed drug. Note | | [place] | | | | 2: This metabolite is | | | | | | not present at or above | | | | | | the cutoff. Note 3: | | | | | | Insufficient clinical | | | | | | studies exist to | | | | | | evaluate Norhydrocodone | | | | | | in the presence of | | | | | | Codeine use. This | | | | | | drug testing is for | | | | | | medical treatment only. | | | | | | Analysis was | | | | | | performed as | | | | | | non-forensic testing and | | | | | | these results | | | | | | should be used only by | | | | | | healthcare | | | | | | providers to render | | | | | | diagnosis or treatment, | | | | | | or to monitor | | | | | | progress of medical | | | | | | conditions. MedMATCH | | | | | | comments are: - | | | | | | present when drug test | | | | | | results may be the | | | | | | result of | | | | | | metabolism of one or | | | | | | more drugs or when | | | | | | results are | | | | | | inconsistent with | | | | | | prescribed medication(s) | | | | | | listed. - may be | | | | | | blank when drug results | | | | | | are consistent with | | | | | | prescribed | | | | | | medication(s) listed. | | | | | | For assistance with | | | | | | interpreting these drug | | | | | | results, please | | | | | | contact a [facility] | | | | | | [facility] Toxicology | | | | | | Specialist: | | | | | | [phone] | | | | | | ( ), M-F | | | | | | 8am-6pm EST. This test | | | | | | was developed and its | | | | | | analytical performance | | | | | | characteristics have | | | | | | been determined by [facility] | | | | | | [facility] | | | | | | [facility] | | | | | | [place]. It has not | | | | | | been cleared or approved | | | | | | by the USFood and Drug | | | | | | Administration. This | | | | | | assay has been validated | | | | | | pursuant to the CLIA | | | | | | regulations and is used | | | | | | for clinical purposes. @ | | | | | | Test Performed By: | | | | | | [facility] | | | | | | [facility] | | | | | | Kathia Pastor M.D., | | | | | | Ph.D., Laboratory | | | | | | Director [id number] | | | | | | [facility] | | | | | | [place] [address] | | | | | | OBINNA #[id number] | | | | + + + + + + + + | Specimen | + + | Urine | + + + + + + + | Performing | Address | City/State/Zipcode | Phone Number | | Organization | | | | + + + + + | REFERENCE LAB | [id number] [facility] | [place] | | | [facility] - | | [phone] | | | [place] | | | | + + + + + Drugs of Abuse, Panel, Pain Management 1 (05/08/2019 4:15 PM PDT) + + + + + + | Component | Value | Ref Range | Performed | Pathologist | | | | | At | Signature | + + + + + + | Creatinine | 254.9 | >=20.0 mg/dL | REFERENCE | | | | | | [facility] | | | | | | [facility] | | | | | | - [place] | | | | | | [place] | | + + + + + + | pH, Urine | 5.8 | 4.5 - 9.0 | REFERENCE | | | | | | [facility] | | | | | | [facility] | | | | | | - [place] | | | | | | [place] | | + + + + + + | Oxidants | NEGATIVE | <200 mcg/mL | REFERENCE | | | Screen, | | | [facility] | | | Urine | | | DIAGNOSTICS | | | | | | - [place] | | | | | | [place] | | + + + + + + | Amphetamine | NEGATIVE | <500 ng/mL | REFERENCE | | | Screen, | | | [facility] | | | Urine | | | DIAGNOSTICS | | | | | | - [place] | | | | | | [place] | | + + + + + + | Amphetamine | CONSISTENT | | REFERENCE | | | s medMATCH | | | [facility] | | | | | | [facility] | | | | | | - [place] | | | | | | [place] | | + + + + + + | Barbiturate | NEGATIVE | <300 ng/mL | REFERENCE | | | s Screen, | | | [facility] | | | Urine | | | DIAGNOSTICS | | | | | | - [place] | | | | | | [place] | | + + + + + + | Barbiturate | CONSISTENT | | REFERENCE | | | s medMATCH | | | [facility] | | | | | | [facility] | | | | | | - [place] | | | | | | [place] | | + + + + + + | Benzodiazep | NEGATIVE CONFIRMED | <100 ng/mL | REFERENCE | | | wendi | | | [facility] | | | Screen, | | | DIAGNOSTICS | | | Urine | | | - [place] | | | | | | [place] | | + + + + + + | ALPHA-HYDRO | NEGATIVE | <25 ng/mL | REFERENCE | | | XYALPRAZOLA | | | [facility] | | | M.UR.QN | | | DIAGNOSTICS | | | (REF) | | | - [place] | | | | | | [place] | | + + + + + + | aOH | CONSISTENT | | REFERENCE | | | alprazolam | | | [facility] | | | medMATCH | | | DIAGNOSTICS | | | | | | - [place] | | | | | | [place] | | + + + + + + | ALPHAHYDROX | NEGATIVE | <50 ng/mL | REFERENCE | | | YMIDAZOLAM. | | | [facility] | | | URINE.CONFI | | | DIAGNOSTICS | | | RM (REF) | | | - [place] | | | | | | [place] | | + + + + + + | aOH | CONSISTENT | | REFERENCE | | | midazolam | | | [facility] | | | medMATCH | | | DIAGNOSTICS | | | | | | - [place] | | | | | | [place] | | + + + + + + | ALPHA-HYDRO | NEGATIVE | <50 ng/mL | REFERENCE | | | XYTRIAZOLAM | | | [facility] | | | .URINE.CONF | | | DIAGNOSTICS | | | IRM (REF) | | | - [place] | | | | | | [place] | | + + + + + + | aOH | CONSISTENT | | REFERENCE | | | triazolam | | | [facility] | | | medMATCH | | | DIAGNOSTICS | | | | | | - [place] | | | | | | [place] | | + + + + + + | AMINOCLONAZ | NEGATIVE | <25 ng/mL | REFERENCE | | | EPAM.URINE. | | | [facility] | | | CONFIRM | | | DIAGNOSTICS | | | (REF) | | | - [place] | | | | | | [place] | | + + + + + + | Aminoclonaz | CONSISTENT | | REFERENCE | | | epam | | | [facility] | | | medMATCH | | | DIAGNOSTICS | | | | | | - [place] | | | | | | [place] | | + + + + + + | 2-HYDROXYET | NEGATIVE | <50 ng/mL | REFERENCE | | | HYLFLURAZEP | | | [facility] | | | AM UR QT | | | DIAGNOSTICS | | | | | | - [place] | | | | | | [place] | | + + + + + + | OH, Et | CONSISTENT | | REFERENCE | | | flurazepam | | | [facility] | | | medMATCH | | | DIAGNOSTICS | | | | | | - [facility] | | | | | | [facility] | | + + + + + + | Lorazepam | NEGATIVE | <50 ng/mL | REFERENCE | | | Confirm, | | | [facility] | | | Urine | | | DIAGNOSTICS | | | | | | - [facility] | | | | | | [facility] | | + + + + + + | Lorazepam | CONSISTENT | | REFERENCE | | | medMATCH | | | [facility] | | | | | | DIAGNOSTICS | | | | | | - [facility] | | | | | | [facility] | | + + + + + + | Nordiazepam | NEGATIVE | <50 ng/mL | REFERENCE | | | , Urine, | | | [facility] | | | Conf | | | DIAGNOSTICS | | | | | | - [facility] | | | | | | [facility] | | + + + + + + | Nordiazepam | CONSISTENT | | REFERENCE | | | medMATCH | | | [facility] | | | | | | DIAGNOSTICS | | | | | | - [place] | | | | | | [place] | | + + + + + + | Oxazepam | NEGATIVE | <50 ng/mL | REFERENCE | | | Confirm, | | | [facility] | | | Urine | | | DIAGNOSTICS | | | | | | - [place] | | | | | | [place] | | + + + + + + | Oxazepam | CONSISTENT | | REFERENCE | | | medMATCH | | | [facility] | | | | | | DIAGNOSTICS | | | | | | - [place] | | | | | | [place] | | + + + + + + | Temazepam | NEGATIVE | <50 ng/mL | REFERENCE | | | Confirm, | | | [facility] | | | Urine | | | DIAGNOSTICS | | | | | | - [place] | | | | | | [place] | | + + + + + + | Temazepam | CONSISTENT | | REFERENCE | | | medMATCH | | | [facility] | | | | | | DIAGNOSTICS | | | | | | - [place] | | | | | | [place] | | + + + + + + | Marijuana | NEGATIVE | <20 ng/mL | REFERENCE | | | Metabolite | | | [facility] | | | | | | DIAGNOSTICS | | | | | | - [place] | | | | | | WOL[place] | | + + + + + + | Marijuana | CONSISTENT | | REFERENCE | | | Metab | | | [facility] | | | medMATCH | | | DIAGNOSTICS | | | | | | - [place] | | | | | | WOL[place] | | + + + + + + | Cocaine | NEGATIVE | <150 ng/mL | REFERENCE | | | Metabolite | | | [facility] | | | | | | DIAGNOSTICS | | | | | | - [place] | | | | | | [place] | | + + + + + + | Cocaine | CONSISTENT | | REFERENCE | | | Metab | | | [facility] | | | medMATCH | | | DIAGNOSTICS | | | | | | - [place] | | | | | | WOL[place] | | + + + + + + | Methadone | NEGATIVE | <100 ng/mL | REFERENCE | | | Screen, | | | [facility] | | | Urine | | | DIAGNOSTICS | | | | | | - [place] | | | | | | W[place] | | + + + + + + | Methadone | CONSISTENT | | REFERENCE | | | Metab | | | [facility] | | | medMATCH | | | DIAGNOSTICS | | | | | | - [place] | | | | | | W[place] | | + + + + + + | Opiates | POSITIVE (A) | <100 ng/mL | REFERENCE | | | | | | [facility] | | | | | | DIAGNOSTICS | | | | | | - [place] | | | | | | WOLF | | + + + + + + | Codeine | NEGATIVE | <50 ng/mL | REFERENCE | | | Confirm, | | | [facility] | | | Urine | | | DIAGNOSTICS | | | | | | - [place] | | | | | | WOLF | | + + + + + + | Codeine | CONSISTENT | | REFERENCE | | | medMATCH | | | [facility] | | | | | | DIAGNOSTICS | | | | | | - [place] | | | | | | WOLF | | + + + + + + | Hydrocodone | 323 (H) | <50 ng/mL | REFERENCE | | | Confirm, | | | [facility] | | | Urine | | | DIAGNOSTICS | | | | | | - [place] | | | | | | WOL[place] | | + + + + + + | Hydrocodone | INCONSISTENT | | REFERENCE | | | medMATCH | | | [facility] | | | | | | DIAGNOSTICS | | | | | | - [place] | | | | | | WOLF | | + + + + + + | Hydromorpho | 267 (H) | <50 ng/mL | REFERENCE | | | ne, | | | [facility] | | | Confirm, | | | DIAGNOSTICS | | | Urine | | | - [place] | | | | | | WOLF | | + + + + + + | Hydromorpho | INCONSISTENT See Note 1 | | REFERENCE | | | ne medMATCH | | | [facility] | | | | | | DIAGNOSTICS | | | | | | - [place] | | | | | | W[place] | | + + + + + + | Morphine | NEGATIVE | <50 ng/mL | REFERENCE | | | Confirm, | | | [facility] | | | Urine | | | DIAGNOSTICS | | | | | | - [place] | | | | | | WOL[place] | | + + + + + + | Morphine | CONSISTENT See Note 2 | | REFERENCE | | | medMATCH | | | [facility] | | | | | | DIAGNOSTICS | | | | | | - [place] | | | | | | WOL[place] | | + + + + + + | Norhydrocod | 1911 (H) | <50 ng/mL | REFERENCE | | | one | | | [facility] | | | Confirm, | | | DIAGNOSTICS | | | Urine | | | - [place] | | | | | | WOL[place] | | + + + + + + | Norhydrocod | See Note 3 | | REFERENCE | | | one | | | [facility] | | | medMATCH | | | DIAGNOSTICS | | | | | | - [place] | | | | | | WOLF | | + + + + + + | Oxycodone, | NEGATIVE | <100 ng/mL | REFERENCE | | | UR | | | [facility] | | | | | | DIAGNOSTICS | | | | | | - [place] | | | | | | WOLF | | + + + + + + | Oxycodone | CONSISTENT | | REFERENCE | | | medMATCH | | | [facility] | | | | | | DIAGNOSTICS | | | | | | - [place] | | | | | | WOLF | | + + + + + + | Phencyclidi | NEGATIVE | <25 ng/mL | REFERENCE | | | ne, Screen, | | | [facility] | | | Urine | | | DIAGNOSTICS | | | | | | - [place] | | | | | | WOL[place] | | + + + + + + | Phencyclidi | CONSISTENTComment: | | REFERENCE | | | ne medMATCH | Note 1: Hydromorphone is | | [facility] | | | | a metabolite of | | DIAGNOSTICS | | | | hydrocodone as well as a | | - [place] | | | | prescribed drug. Note | | WOLF | | | | 2: This metabolite is | | | | | | not present at or above | | | | | | the cutoff. Note 3: | | | | | | Insufficient clinical | | | | | | studies exist to | | | | | | evaluate Norhydrocodone | | | | | | in the presence of | | | | | | Codeine use. This | | | | | | drug testing is for | | | | | | medical treatment only. | | | | | | Analysis was | | | | | | performed as | | | | | | non-forensic testing and | | | | | | these results | | | | | | should be used only by | | | | | | healthcare | | | | | | providers to render | | | | | | diagnosis or treatment, | | | | | | or to monitor | | | | | | progress of medical | | | | | | conditions. MedMATCH | | | | | | comments are: - | | | | | | present when drug test | | | | | | results may be the | | | | | | result of | | | | | | metabolism of one or | | | | | | more drugs or when | | | | | | results are | | | | | | inconsistent with | | | | | | prescribed medication(s) | | | | | | listed. - may be | | | | | | blank when drug results | | | | | | are consistent with | | | | | | prescribed | | | | | | medication(s) listed. | | | | | | For assistance with | | | | | | interpreting these drug | | | | | | results, please | | | | | | contact a [facility] | | | | | | [facility] Toxicology | | | | | | Specialist: | | | | | | [phone] | | | | | | ( ), M-F | | | | | | 8am-6pm EST. This test | | | | | | was developed and its | | | | | | analytical performance | | | | | | characteristics have | | | | | | been determined by [facility] | | | | | | [facility] | | | | | | [place] | | | | | | Maryann. It has not | | | | | | been cleared or approved | | | | | | by the USFood and Drug | | | | | | Administration. This | | | | | | assay has been validated | | | | | | pursuant to the CLIA | | | | | | regulations and is used | | | | | | for clinical purposes. @ | | | | | | Test Performed By: | | | | | | [email or web address] | | | | | | [place] [facility] | | | | | | Kathia Pastor M.D., | | | | | | Ph.D., Laboratory | | | | | | Director [id number] | | | | | | [facility] | | | | | | [place] [address] | | | | | | CLIA #[id number] | | | | + + + + + + + + | Specimen | + + | Urine | + + + + + + + | Performing | Address | City/State/[facility] | Phone Number | | Organization | | | | + + + + + | REFERENCE LAB | [id number] [place] [address] | [place], [place] | | | [facility] - | | [address] | | | [place] | | | | + + + + + documented in this encounter Visit Diagnoses + + | Diagnosis | + + | Pain management - Primary Other specified rehabilitation procedure | + + | Pulmonary nodules Other nonspecific abnormal finding of lung field | + + | Tobacco use Tobacco use disorder | + + | Chronic midline low back pain with bilateral sciatica | + + | Hyperlipidemia, unspecified hyperlipidemia type | + + | Essential hypertension Unspecified essential hypertension | + + documented in this encounter
--- OUTSIDE RECORDS SUMMARY | ~2019-09-01 | XMS | Encounter Summary ---
Demographics + + + | Address | [address] | | | [place] [address] | + + + | Home Phone | | + + + | Preferred Language | Unknown | + + + | Marital Status | | + + + | Orthodox Affiliation | Unknown | + + + | Race | Unknown | + + + | Ethnic Group | Unknown | + + + Author + + + | Author | [facility] | | | and [place] | + + + | Organization | [facility] | | | and [place] | [...] Team Providers + +------+ + | Care Rf Manager Name | Role | Phone | + +------+ + PCP | Unavailable | + +------+ + Encounter Details +--------+ + + + + | Date | Type | Department | Care Team | Description | +--------+ + + + + | 06/15/ | [facility] | [place] [facility] | Faith Rodríguez | | | 2017 | Encounter | [facility] | D, PRODUCTION ASSEMBLY OPERATOR ONE | | | | | PRIMARY CARE [address] | [facility] | | | | | JET [facility], | [place] [address] | | | | | [place] [address] | [phone] | | | | | [phone] | | | +--------+ + + + [...]
--- OUTSIDE RECORDS SUMMARY | ~2019-09-01 | XMS | Encounter Summary ---
Demographics + + + | Address | [address] | | | [place] [address] | + + + | Home Phone [...] Author | [facility] | | | and [place] | + + + | Organization | [facility] | | | and [...] Team Providers + +------+ + | Care Movement Assembler Name | Role | Phone | + +------+ + PCP | Unavailable | + +------+ + Encounter Details +--------+ + + + + | Date | Type | Department | Care Team | Description | +--------+ + + + + | 04/13/ | [facility] | [place] [facility] | Faith Rodríguez | | | 2017 | Encounter | [facility] | D, OIL BOILER ONE | | | | | PRIMARY CARE [address] | [facility] | | | | | JET [facility], | [place] [address] | | | | | [place] [address] | [phone] | | | | | [phone] | | | +--------+ + + + [...]
--- OUTSIDE RECORDS SUMMARY | ~2019-09-01 | XMS | Encounter Summary ---
Demographics + + + | Address | [address] | | | [place] [address] | + + + | Home Phone | | + + + | Preferred Language | Unknown | + + + | Marital Status | | + + + | Shinto Affiliation | Unknown | + + + | Race | Unknown | + + + | Ethnic Group | Unknown | + + + Author + + + | Author | [facility] | | | and [place] | + + + | Organization | [facility] | | | and [...] Team Providers + +------+ + | Care Hydraulic Plumber Name | Role | Phone | + +------+ + PCP | Unavailable | + +------+ + Encounter Details +--------+ + + + + | Date | Type | Department | Care Team | Description | +--------+ + + + + | 07/08/ | Hospital | [place] [facility] | Jacklyn Saldana | | | 2009 | Encounter | HOSPITAL XRAY [address] | [address] | | | | | [place] | [address] | | | | | [place] | [place] [address] | | | | | [address] | [phone] | | | | | [phone] | | | +--------+ + + + [...]
--- OUTSIDE RECORDS SUMMARY | ~2019-09-01 | XMS | Encounter Summary ---
Demographics + + + | Address | [address] | | | [place] [address] | + + + | Home Phone | | + + + | Preferred Language | Unknown | + + + | Marital Status | | + + + | Restorationism Affiliation | Unknown | + + + | Race | Unknown | + + + | Ethnic Group | Unknown | + + + Author + + + | Author | [facility] | | | and [place] | + + + | Organization | [facility] | | | and [place] [...] Team Providers + +------+ + | Care Metal Casket Assembler Name | Role | Phone | [...] Description | +--------+--------+ + + + | 12/28/ | Refill | [place] [facility] | Aric Palmer | Medication Refill | | 2019 | | [facility] | [address]TY [address] | | | | | PRIMARY CARE [address] | [place] [facility], | | | | | J[facility], | [place] [address] | | | | | [place] [address] | [phone] | | | | | [phone] | | | +--------+--------+ + + + [...]
--- OUTSIDE RECORDS SUMMARY | ~2019-09-01 | XMS | Encounter Summary ---
Demographics + + + | Address | [address] | | | [place] [address] | + + + | Home Phone | | + + + | Preferred Language | Unknown | + + + | Marital Status | | + + + | Latter-Day Affiliation | Unknown | + + + | Race | Unknown | + + + | Ethnic Group | Unknown | + + + Author + + + | Author | [facility] | | | and [place] | + + + | Organization | [facility] | | | and [place] [...] Team Providers + +------+ + | Care Abrasive Sawyer Name | Role | Phone | + +------+ + | Aric Palmer | PCP | | | LETTY | | | + +------+ + Encounter Details +--------+ + + + + | Date | Type | Department | Care Team | Description | +--------+ + + + + | 12/28/ | Orders Only | [place] | Aric Palmer | | | 2018 | | [facility] | [address] | | | | | PRIMARY CARE [address] | [place], | | | | | [place], | [place] [address] | | | | | [place] [address] | [phone] | | | | | [phone] | | | +--------+ + + + [...]
--- OUTSIDE RECORDS SUMMARY | ~2019-09-01 | XMS | Encounter Summary ---
Demographics + + + | Address | [address] | | | [place] [address] | + + + | Home Phone | | + + + | Preferred Language | Unknown | + + + | Marital Status | | + + + | Anglican Affiliation | Unknown | + + + | Race | Unknown | + + + | Ethnic Group | Unknown | + + + Author + + + | Author | [facility] | | | and [place] | + + + | Organization | [facility] | | | and [...] Team Providers + +------+ + | Care Valver Name | Role | Phone | + [...] | PRIMARY CARE [address] | [facility], | | | | | [facility], | [place] [address] | | | | | [place] [address] | [phone] | | | | | [phone] | | | +--------+ + + + [...]
--- OUTSIDE RECORDS SUMMARY | ~2019-09-01 | XMS | Encounter Summary ---
Demographics + + + | Address | [address] | | | [place] [address] | + + + | Home Phone | | + + + | Preferred Language | Unknown | + + + | Marital Status | | + + + | Scientology Affiliation | Unknown | + + + | Race | Unknown | + + + | Ethnic Group | Unknown | + + + Author + + + | Author | [facility] | | | and [place] | + + + | Organization | [facility] | | | and [place] | [...] Team Providers + +------+ + | Care Bone Puller Name | Role | Phone | + +------+ + PCP | Unavailable | + +------+ + Encounter Details +--------+ + + + + | Date | Type | Department | Care Team | Description | +--------+ + + + + | 05/09/ | Hospital | [place] [facility] | Faith Rodríguez | | | 2017 | Encounter | [facility]OSP[facility] | D, TECHNICIAN TRAINEE ONE | | | | | [address] | [facility] | | | | | [place] | [place] [address] | | | | | [address] | [phone] | | | | | [phone] | | | +--------+ + + + [...]
--- OUTSIDE RECORDS SUMMARY | ~2019-09-01 | XMS | Encounter Summary ---
Demographics + + + | Address | [address] | | | [place] [address] | + + + | Home Phone | | + + + | Preferred Language | Unknown | + + + | Marital Status | | + + + | Hoahaoism Affiliation | Unknown | + + + | Race | Unknown | + + + | Ethnic Group | Unknown | + + + Author + + + | Author | [facility] | | | and [place] | + + + | Organization | [facility] | | | and [place] [...] Team Providers + +------+ + | Care Irrigating Pump Operator Name | Role | Phone | + +------+ + | Faith Rodríguez NP | PCP | | + +------+ + Encounter Details +--------+ + + + + | Date | Type | Department | Care Team | Description | +--------+ + + + + | 07/20/ | Abstract | [facility] | Jcarlos Stringer | | | 2017 | | PULMONARY [address] | [address] | | | | | [place], | [place] | | | | | [place] [address] | [place] [address] | | | | | [phone] | [phone] | | | | | | | [...] | | | + +---+---+---+ + + | Tobacco Cessation: Ready to Quit: Yes; Counseling Given: Yes | + + + + + | Sex Assigned [...]
--- OUTSIDE RECORDS SUMMARY | ~2019-09-01 | XMS | Encounter Summary ---
Demographics + + + | Address | [address] | | | [place] [address] | + + + | Home Phone | | + + + | Preferred Language | Unknown | + + + | Marital Status | | + + + | Oriental Orthodox Affiliation | Unknown | + + + | Race | Unknown | + + + | Ethnic Group | Unknown | + + + Author + + + | Author | [facility] | | | and [place] | + + + | Organization | [facility] | | | and [place] [...] Team Providers + +------+ + | Care Commercial Appraiser Name | Role | Phone | + +------+ + | Faith Rodríguez BOARD LINING MACHINE OPERATOR | PCP | | + +------+ + Encounter Details +--------+ + + + + | Date | Type | Department | Care Team | Description | +--------+ + + + + | 03/13/ | Documentati | [place] [facility] | Faith Rodríguez | | | 2018 | on | [facility] | D, BOARD LINING MACHINE OPERATOR ONE | | | | | PRIMARY CARE [address] | [facility] | | | | | [facility], | [place] [address] | | | | | [place] [address] | [phone] | | | | | [phone] | | | +--------+ + + + [...] + + documented as of this encounter Progress Notes Rosalia Harmon - 03/13/2018 2:33 PM PDTDelivered 03-16-18 [facility] Alfreda alegria signed by Rosalia Harmon at 03/27/2018 4:29 PM Rosalia Agarwal - 8 2:33 PM PDTHydrocodone 5-325 mg qty 120 Hydrocodone 5-325 mg qty 120 Hydrocodone 5-325 mg qty 120 Sent certified mail: [facility] [address] [place] [address] [address] [place] [address] Tracking number: [id number] documented in this enco unter Plan of Treatment Not on filedocumented as of this encounter Visit Diagnoses Not on filedocumented in this encounter"
--- OUTSIDE RECORDS SUMMARY | ~2019-09-01 | XMS | Encounter Summary ---
Demographics + + + | Address | [address] | | | [place] [address] | + + + | Home Phone | | + + + | Preferred Language | Unknown | + + + | Marital Status | | + + + | Zoroastrian Affiliation | Unknown | + + + | Race | Unknown | + + + | Ethnic Group | Unknown | + + + Author + + + | Author | [facility] | | | and [place] | + + + | Organization | [facility] | | | and [place] | + [...] Team Providers + +------+ + | Care Shipping And Receiving Supervisor Name | Role | Phone | + +------+ + | Faith Rodríguez NP | PCP | | + +------+ + Encounter Details +--------+ + + + + | Date | Type | Department | Care Team | Description | +--------+ + + + + | 07/07/ | Imaging | [facility] | Héctor, | | | 2017 | Exam | [facility] | MD [address] | | | | | IMAGING | [place] | | | | | [phone] | [place] [address] | | +--------+ + + + + [...] +--------+ + + + | CT CHEST ABDOMEN | Routin | 04/28/2017 | | Results for this | | PELVIS W CONTRAST | e | 5:40 PM | | procedure are in the | | | | PDT | | results section. | + +--------+ + + + documented in this encounter Results CT Chest Abdomen Pelvis w Contrast (04/28/2017 5:40 PM PDT) + + | Specimen | + + | | + + + + + | Narrative | Performed At | + + + | External films for comparison only - no result from [place]. | [facility] | + + + + +---------+ + + | Performing | Address | City/State/Zipcode | Phone Number | | Organization | | | | + +---------+ + + | [facility] | | | | + +---------+ + + documented in this encounter Visit Diagnoses Not on filedocumented in this encounter"
--- OUTSIDE RECORDS SUMMARY | ~2019-09-01 | XMS | Encounter Summary ---
Demographics + + + | Address | [address] | | | [place] [address] | + + + | Home Phone | | + + + | Preferred Language | Unknown | + + + | Marital Status | | + + + | Quaker Affiliation | Unknown | + + + | Race | Unknown | + + + | Ethnic Group | Unknown | + + + Author + + + | Author | [facility] | | | and [place] | + + + | Organization | [facility] | | | and [place] [...] Team Providers + +------+ + | Care Carpenter Maintenance Name | Role | Phone | + [...] Description | +--------+--------+ + + + | 02/26/ | Refill | [place] | Nate Rodríguezher | Medication Refill | | 2018 | [facility] | D, NEUROLOGY EPILEPSY PHYSICIAN ONE | | | | | PRIMARY CARE [address] | [facility] | | | | | JET [facility], | [place] [address] | | | | | [place] [address] | [phone] | | | | | [phone] | | | +--------+--------+ + + + [...] + | Diagnosis | + + | Other osteoarthritis of spine, lumbar region | + + documented in this encounter"
--- OUTSIDE RECORDS SUMMARY | ~2019-09-01 | XMS | Encounter Summary ---
Demographics + + + | Address | [address] | | | [place] [address] | + + + | Home Phone | | + + + | Preferred Language | Unknown | + + + | Marital Status | | + + + | Faith Affiliation | Unknown | + + + | Race | Unknown | + + + | Ethnic Group | Unknown | + + + Author + + + | Author | [facility] | | | and [place] | + + + | Organization | [facility] | | | and [...] Team Providers + +------+ + | Care Commissary Assistant Name | Role | Phone | + +------+ + PCP | Unavailable | + +------+ + Encounter Details +--------+ + + + + | Date | Type | Department | Care Team | Description | +--------+ + + + + | 03/16/ | Hospital | [place] [facility] | Jacklyn Saldana | | | 2011 | Encounter | HOSPITAL XRAY [address] | [address] | | | | | [place] | [address] | | | | | [place] | [place] [address] | | | | | [address] | [phone] | | | | | [phone] | | | +--------+ + + + [...]
--- OUTSIDE RECORDS SUMMARY | ~2019-09-01 | XMS | Encounter Summary ---
Demographics + + + | Address | [address] | | | [place] [address] | + + + | Home Phone [...] Author | [facility] | | | and [place] | + + + | Organization | [facility] | | | and [place] [...] Team Providers + +------+ + | Care Dry Chain Puller Name | Role | Phone | [...] | +--------+ + + + + | 10/09/ | Telephone | [place] [facility] | Faith Rodríguez | Medication Refill | | 2017 | | [facility] | D, MAXILLOFACIAL SURGEON ONE | | | | | [address] | [facility] | | | | | [facility] [place] [place] | [place] [address] | | | | | [address] | [phone] | | | | | [phone] | | | +--------+ + + + [...]
--- OUTSIDE RECORDS SUMMARY | ~2019-09-01 | XMS | Encounter Summary ---
Demographics + + + | Address | [address] | | | [place] [address] | + + + | Home Phone | | + + + | Preferred Language | Unknown | + + + | Marital Status | | + + + | Episcopalian Affiliation | Unknown | + + + | Race | Unknown | + + + | Ethnic Group | Unknown | + + + Author + + + | Author | [facility] | | | and [place] | + + + | Organization | [facility] | | | and [...] Team Providers + +------+ + | Care Cash Van Salesperson Name | Role | Phone | + +------+ + | Faith Rodríguez NP | PCP | | + +------+ + Encounter Details +--------+ + + + + | Date | Type | Department | Care Team | Description | +--------+ + + + + | 09/22/ | Orders Only | [facility] | Raina Reed, | Old anteroseptal | | 2016 | | PULMONARY [address] | RN | myocardial | | | | [place], | | infarction | | | | [place] [address] | | | | | | [phone] | | | +--------+ + + + [...] + | Diagnosis | + + | 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
--- OUTSIDE RECORDS SUMMARY | ~2019-09-01 | XMS | Encounter Summary ---
Demographics + + + | Address | [address] | | | [place] [address] | + + + | Home Phone | | + + + | Preferred Language | Unknown | + + + | Marital Status | | + + + | Zoroastrianism Affiliation | Unknown | + + + | Race | Unknown | + + + | Ethnic Group | Unknown | + + + Author + + + | Author | [facility] | | | and [place] | + + + | Organization | [facility] | | | and [...] Team Providers + +------+ + | Care Arc Air Operator Name | Role | Phone | + +------+ + | Faith Rodríguez NP | PCP | | + +------+ + Encounter Details +--------+ + + + + | Date | Type | Department | Care Team | Description | +--------+ + + + + | 11/20/ | Documentati | [place] [facility] | Candy Iglesias, | | | 2018 | on | [facility] | RN | | | | | PRIMARY CARE [address] | | | | | | [facility], | | | | | | [place] [address] | | | | | | [phone] | | | +--------+ + + + [...]
--- OUTSIDE RECORDS SUMMARY | ~2019-09-01 | XMS | Encounter Summary ---
Demographics + + + | Address | [address] | | | [place] [address] | + + + | Home Phone | | + + + | Preferred Language | Unknown | + + + | Marital Status | | + + + | Anabaptist Affiliation | Unknown | + + + | Race | Unknown | + + + | Ethnic Group | Unknown | + + + Author + + + | Author | [facility] | | | and [place] | + + + | Organization | [facility] | | | and [place] | [...] Team Providers + +------+ + | Care Home School Liaison Officer Name | Role | Phone | + +------+ + PCP | Unavailable | + +------+ + Encounter Details +--------+ + + + + | Date | Type | Department | Care Team | Description | +--------+ + + + + | 04/13/ | [facility] | [place] [facility] | Faith Rodríguez | | | 2017 | Encounter | [facility] | D, [address] | | | | | PRIMARY CARE [address] | [facility] | | | | | [facility], | [place] [address] | | | | | [place] [address] | [phone] | | | | | [phone] | | | +--------+ + + + [...] + + + | CBC W/AUTO | Routin | 04/13/2017 | | Results for this | | DIFFERENTIAL | e | 4:14 PM | | procedure are in the | | | | PDT | | results section. | + +--------+ + + + | PROTIME INR | Routin | 04/13/2017 | | Results for this | | | e | 4:14 PM | | procedure are in the | | | | PDT | | results section. | + +--------+ + + + | TSH | Routin | 04/13/2017 | | Results for this | | | e | 4:14 PM | | procedure are in the | | | | PDT | | results section. | + +--------+ + + + | COMPREHENSIVE | Routin | 04/13/2017 | | Results for this | | METABOLIC PANEL | e | 4:14 PM | | procedure are in the | | | | PDT | | results section. | + +--------+ + + + documented in this encounter Results Protime INR (04/13/2017 4:14 PM PDT) + +-------+ + + + | Component | Value | Ref Range | Performed | Pathologist | | | | | At | Signature | + +-------+ + + + | Prothrombin | 14 | 12.3 - 14.1 SEC | EXTERNAL | | | Time | | | LAB | | + +-------+ + + + | INR | 1.06 | | EXTERNAL | | | | | | LAB | | + +-------+ + + + + + | Specimen | + + | | + + + +---------+ + + | Performing | Address | City/State/Zipcode | Phone Number | | Organization | | | | + +---------+ + + | EXTERNAL LAB | | | | + +---------+ + + TSH (04/13/2017 4:14 PM PDT) + +-------+ + + + | Component | Value | Ref Range | Performed | Pathologist | | | | | At | Signature | + +-------+ + + + | TSH | 1.56 | 0.36 - 3.74 | EXTERNAL | | | | | mIU/L | LAB | | + +-------+ + + + + + | Specimen | + + | | + + + +---------+ + + | Performing | Address | City/State/Zipcode | Phone Number | | Organization | | | | + +---------+ + + | EXTERNAL LAB | | | | + +---------+ + + Comprehensive Metabolic Panel (04/13/2017 4:14 PM PDT) + +-------+ + + + | Component | Value | Ref Range | Performed | Pathologist | | | | | At | Signature | + +-------+ + + + | Sodium | 140 | 132 - 143 | EXTERNAL | | | | | mmol/L | LAB | | + +-------+ + + + | Potassium | 3.9 | 3.3 - 4.9 | EXTERNAL | | | | | mmol/L | LAB | | + +-------+ + + + | Cl | 105 | 95 - 108 mmol/L | EXTERNAL | | | | | | LAB | | + +-------+ + + + | CO2 | 29 | 23 - 34 mmol/L | EXTERNAL | | | | | | LAB | | + +-------+ + + + | Anion Gap | 6 | 7 - 16 | EXTERNAL | | | | | | LAB | | + +-------+ + + + | Calcium | 9.1 | 8.3 - 10.0 | EXTERNAL | | | | | mg/dL | LAB | | + +-------+ + + + | Glucose | 90 | 70 - 110 mg/dL | EXTERNAL | | | | | | LAB | | + +-------+ + + + | BUN, Bld | 15 | 5 - 26 mg/dL | EXTERNAL | | | | | | LAB | | + +-------+ + + + | Creatinine | 0.85 | 0.70 - 1.40 | EXTERNAL | | | | | mg/dL | LAB | | + +-------+ + + + | BUN/Creatin | 17.6 | 7.0 - 24.0 | EXTERNAL | | | ine Ratio | | RATIO | LAB | | + +-------+ + + + | GFR | 60 | >=60 | EXTERNAL | | | ESTIMATE | | mL/min/1.73m2 | LAB | | + +-------+ + + + | Bilirubin, | 0.6 | <=1.2 mg/dL | EXTERNAL | | | Total | | | LAB | | + +-------+ + + + | Protein, | 7.3 | 6.6 - 8.5 g/dL | EXTERNAL | | | Total | | | LAB | | + +-------+ + + + | Albumin | 4 | 3.0 - 4.5 g/dL | EXTERNAL | | | | | | LAB | | + +-------+ + + + | Alkaline | 62 | 46 - 116 U/L | EXTERNAL | | | Phosphatase | | | LAB | | + +-------+ + + + | ALT, | 18 | 16 - 63 U/L | EXTERNAL | | | External | | | LAB | | + +-------+ + + + | AST, | 25 | <=38 U/L | EXTERNAL | | [...] +---------+ + + CBC w/ Auto Differential (04/13/2017 4:14 PM PDT) + +-------+ + + + | Component | Value | Ref Range | Performed | Pathologist | | | | | At | Signature | + +-------+ + + + | WBC | 7.2 | 4.6 - 10.5 | EXTERNAL | | | | | 1000/mm3 | LAB | | + +-------+ + + + | RBC | 4.01 | 4.36 - 5.83 | EXTERNAL | | | | | mil/mm3 | LAB | | + +-------+ + + + | HGB, | 14.2 | 13.1 - 17.4 | EXTERNAL | | | External | | g/dL | LAB | | + +-------+ + + + | HCT, | 41.5 | 39.0 - 51.9 % | EXTERNAL | | | External | | | LAB | | + +-------+ + + + | MCV | 104 | 82 - 96 fl | EXTERNAL | | | | | | LAB | | + +-------+ + + + | MCH | 35.4 | 27.7 - 32.3 pg | EXTERNAL | | | | | | LAB | | + +-------+ + + + | MCHC | 34.2 | 32.0 - 36.9 | EXTERNAL | | | | | g/dL | LAB | | + +-------+ + + + | RDW-CV | 12.8 | <=17.0 % | EXTERNAL | | | | | | LAB | | + +-------+ + + + | RDW-SD | 48.3 | 34.0 - 57.0 fL | EXTERNAL | | | | | | LAB | | + +-------+ + + + | Platelet | 157 | 150 - 450 | EXTERNAL | | | Count | | 1000/mm3 | LAB | | | Plasma | | | | | + +-------+ + + + | MPV | 10.6 | 9.4 - 12.4 FL | EXTERNAL | | | | | | LAB | | + +-------+ + + + | % Segmented | 54.4 | 42.0 - 76.0 % | EXTERNAL | | | | | | LAB | | | Neutrophils | | | | | + +-------+ + + + | % | 34.3 | 20.0 - 40.0 % | EXTERNAL | | | Lymphocytes | | | LAB | | + +-------+ + + + | % Monocytes | 8.5 | 3.0 - 13.0 % | EXTERNAL | | | | | | LAB | | + +-------+ + + + | % | 2 | 0.0 - 7.0 % | EXTERNAL | | | Eosinophils | | | LAB | | + +-------+ + + + | % Basophils | 0.4 | 0.0 - 2.0 % | EXTERNAL | | | | | | LAB | | + +-------+ + + + | % Immature | 0.4 | 0.0 - 0.5 % | EXTERNAL | | | Granulocyte | | | LAB | | | s | | | | | + +-------+ + + + | % nRBC | 0 | 0.0 - 0.2 /100 | EXTERNAL | | | | | WBC | LAB | | + +-------+ + + + | Absolute | 3.89 | 2.80 - 7.70 | EXTERNAL | | | Neutrophils | | 1000/mm3 | LAB | | + +-------+ + + + | Absolute | 2.45 | 1.20 - 3.30 | EXTERNAL | | | Lymphocytes | | 1000/mm3 | LAB | | + +-------+ + + + | Absolute | 0.61 | 0.00 - 0.80 | EXTERNAL | | | Monocytes | | 1000/mm3 | LAB | | + +-------+ + + + | Absolute | 0.14 | 0.00 - 0.70 | EXTERNAL | [...] NO | | EXTERNAL | | | REVIEW | | | LAB | | + [...]
--- OUTSIDE RECORDS SUMMARY | ~2019-09-01 | XMS | Encounter Summary ---
Demographics + + + | Address | [address] | | | [place] [address] | + + + | Home Phone | | + + + | Preferred Language | Unknown | + + + | Marital Status | | + + + | Cheondoism Affiliation | Unknown | + + + | Race | Unknown | + + + | Ethnic Group | Unknown | + + + Author + + + | Author | [facility] | | | and [place] | + + + | Organization | [facility] | | | and [place] [...] Team Providers + +------+ + | Care Outpatient Therapist Name | Role | Phone | + +------+ + | Faith Rodríguez NP | PCP | | + +------+ + Reason for Visit + + + | Reason | Comments | + + + | Medication Problem | | + + + Encounter Details +--------+ + + + + | Date | Type | Department | Care Team | Description | +--------+ + + + + | 03/12/ | Clinical | [place] [facility] | RodríguezFaith gallego | | | 2018 | Support | [facility] | D, [address] | | | | | PRIMARY CARE [address] | [facility] | | | | | [facility], | [place] [address] | | | | | [place] [address] | [phone] | | | | | [phone] | | | +--------+ + + + [...] documented as of this encounter Progress Notes Kassi Prado CC CMA - 03/12/2018 2:15 PM PDTPatient came in today to let us know that he hasn't received his hydrocodone from the [facility]. According to patient's chart, the script was sent on 02/27/18. I told patient to call the [place] pharmacy to see if they had sent the mediation yet. Pt also expressed frustration that his medication are not automatically refilled. I told [facility] patient that we do not refill narcotics or controlled substances without a request from [facility] patient or the pharmacy. Pt has an upcoming appt with Faith, he states he will talk to her then. .EDDIE Red CMA documented in this encounter Plan of Treatment Not on filedocumented as of this encounter Visit Diagnoses Not on filedocumented in this encounter"
--- OUTSIDE RECORDS SUMMARY | ~2019-09-01 | XMS | Encounter Summary ---
Demographics + + + | Address | [address] | | | [place] [address] | + + + | Home Phone | | + + + | Preferred Language | Unknown | + + + | Marital Status | | + + + | Mormonism Affiliation | Unknown | + + + | Race | Unknown | + + + | Ethnic Group | Unknown | + + + Author + + + | Author | [facility] | | | and [place] | + + + | Organization | [facility] | | | and [place] [...] Team Providers + +------+ + | Care Health Tech Name | Role | Phone | + +------+ + | Aric Palmer | PCP | | | PA-C | | | + +------+ + Reason for Visit + + + | Reason | Comments | + + + | Follow-up | PMV | + + + Encounter Details +--------+---------+ + + + | Date | Type | Department | Care Team | Description | +--------+---------+ + + + | 02/13/ | Office | [facility] | Aric Palmer | Pain management | | 2019 | Visit | [facility] | [address] | (Primary Dx); | | | | [facility] [address] | [facility], | Herniation of | | | | [facility], | [place] [address] | intervertebral disc | | | | [place] [address] | [phone] | of cervical spine | | | | [phone] | | due to degeneration; | | | | | | Chronic midline low | | | | | | back pain with | | | | | | bilateral sciatica; | | | | | | Annual physical exam | +--------+---------+ + + + Social History [...] + | Tobacco Cessation: Ready to Quit: No; Counseling Given: Yes | + + + + +---------+ + | Alcohol Use [...] + + + | Blood Pressure | 135/67 | 02/13/2019 10:49 AM | | | | | PDT | | + + + + + | Pulse | 70 | 02/13/2019 10:49 AM | | | | | PDT | | + + + + + | Temperature | 36.6 C (97.8 F) | 02/13/2019 10:49 AM | | | | | PDT | | + + + + + | Respiratory Rate | - | - | | + + + + + | Oxygen Saturation | 96% | 02/13/2019 10:49 AM | | | | | PDT | | + + + + + | Inhaled Oxygen | - | - | | | Concentration | | | | + + + + + | Weight | 65.8 kg (145 lb) | 02/13/2019 10:49 AM | | | | | PDT | | + + + + + | Height | 175.3 cm (5' 9") | 02/13/2019 10:49 AM | | | | | PDT | | + + + + + | Body Mass Index | 21.41 | 02/13/2019 10:49 AM | | | | | PDT | | + + + + + documented in this encounter Progress Notes Aric Palmer PA-C - 02/13/2019 10:30 AM PDTFormatting of this note might be di fferent from the original. Patient ID: Saturnino Avila is a 73 y.o. 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 Chronic low back pain Multi-level degeneration. Continue [place] 5/325 2 tabs BID through [facility]. 3 prescriptions of #120 provided today. Will repeat a plain films of lumbar spine. No dedicated image study on file. May consider other pain management techniques after review of plain films. BL sciatica is presents and gabapentin has been helping control this pain. 900 mg tid is th e current dose. Gabapentin and flexeril prescriptions were also renewed today. Annual physical exam Labs ordered for draw in early March. Will perform PE and visit at end of March. Subjective: Saturnino Avila is a very thin, alert and oriented 73-year-old white male who presents to the evening clinic for continued chronic pain management of lumbar and cervical degeneration. H is current chronic pain management plan consists of [place] 5/3/25 2 tablets twice a day, Flex eril 10 mg up to 3 times a day, and gabapentin 900 mg 3 times a day. A review of Saturnino's ur inary drug screens show that he is consistent with his prescribed opioid medication. He rec eives his medications from the [facility]. Allergies: Allergies Allergen Reactions Aspirin Nausea Only and Swelling Bee Venom Anaphylaxis Soap & Cleansers Swelling Rash/swelling Uncoded Nonscreenable Allergen [place], patient states he gets red spots and they burn and get itchy. Codeine Nausea And Vomiting Medications: Current Outpatient Medications Medication Sig Dispense Refill [...] 0 lisinopril (PRINIVIL,ZESTRIL) 40 MG tablet Take 1 [...] No current facility-administered medications for this visit. 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 Gastrointestinal: Negative for abdominal pain, blood in stool and constipation. Genitourinary: Negative for difficulty urinating. Musculoskeletal: Positive for arthralgias, back pain and neck pain. Neurological: Positive for weakness and numbness. Psychiatric/Behavioral: Negative for agitation, behavioral problems and confusion. Objective: Vitals: BP 135/67 | Pulse 70 | Temp 36.6 C (97.8 F) (Temporal) | Ht 1.753 m (5' 9") | Wt 65 .8 kg (145 lb) | SpO2 96% | BMI 21.41 kg/m Physical Exam Constitutional: He is oriented to person, place, and time. He appears well-developed and we ll-nourished. No distress. Cardiovascular: Normal rate, regular rhythm, normal heart sounds and intact distal pulses. Exam reveals no gallop and no friction rub. No murmur heard. Pulmonary/Chest: Effort normal and breath sounds normal. No respiratory distress. He has no wheezes. He has no rales. He exhibits no tenderness. Abdominal: Soft. There is no tenderness. Musculoskeletal: He exhibits tenderness. Cervical back: He exhibits tenderness, bony tenderness, pain and spasm. Lumbar back: He exhibits decreased range of motion, tenderness, bony tenderness, pain and spasm. Neurological: He is alert and oriented to person, place, and time. Skin: Skin is warm and dry. He is not diaphoretic. Psychiatric: He has a normal mood and affect. His behavior is normal. Electronically signed by: Aric Palmer PA-C 02/13/2019 13:09 oBolivar pryor Spencer - 02/13/2019 10:30 AM PDTPatient did not zander ng in [place] but reports he script just came in the mail from the [place]. Patient reports pain is 4 out of 10. States he sleeps a lot during the day. Maybe related to recent loss of signifi cant other. T Associated attestation - Aric Palmer PA-C - 02/13/2019 10:59 AM PDTSaniya jackson ocumented in this encounter Plan of Treatment + +---------+--------+ + + | Name | Type | Priori | Associated Diagnoses | Order Schedule | | | | ty | | | + +---------+--------+ + + | XR Lumbar Spine 2 or | Imaging | Routin | Pain management | Expected: | | 3 Vw | | e | Herniation of | 02/13/2019, Expires: | | | | | intervertebral disc | 02/14/2020 | | | | | of cervical spine | | | | | | due to degeneration | | | | | | Chronic midline low | | | | | | back pain with | | | | | | bilateral sciatica | | + +---------+--------+ + + documented as of this encounter Results B Type Natriuretic Peptide (03/26/2019 7:38 AM PDT) + + + + + + | Component | Value | Ref Range | Performed | Pathologist | | | | | At | Signature | + + + + + + | NT-proBNP | 2,212 (H) | 0 - 125 pg/mL | [facility] | | | | [facility] | [facility] | | | | | | [facility] | | + + + + + + + + | Specimen | + + | Blood | + + + + + + + | Performing | Address | City/State/Zipcode | Phone Number | | Organization | | | | + + + + + | [facility] | [address] | [place] [address] | [phone] | | [facility] | | | | + + + + + TSH, Reflex Free T4 (03/26/2019 7:38 AM PDT) + +-------+ + + + | Component | Value | Ref Range | Performed | Pathologist | | | | | At | Signature | + +-------+ + + + | TSH | 2.43 | 0.36 - 3.74 | [facility] | | | | | uIU/mL | [facility] | [facility] | | | | | | [facility] | | + +-------+ + + + + + | Specimen | + + | Blood | + + + + + + + | Performing | Address | City/State/Zipcode | Phone Number | | Organization | | | | + + + + + | [facility] | [address] | [place] [address] | [phone] | | [facility] | | | | + + + + + Lipid Panel (03/26/2019 7:38 AM PDT) + + + + + + | Component | Value | Ref Range | Performed | Pathologist | | | | | At | Signature | + + + + + + | Triglycerid | 104 | 30 - 200 mg/dL | [facility] | | | es | | | [facility] | | | | [facility] | | | | | | [facility] | | + + + + + + | Cholesterol | 99 | 0 - 200 mg/dL | [facility] | | | | | | [facility] | | | | | | [facility] | | + + + + + + | HDL | 36 (L) | >=40 mg/dL | [facility] | | | | | | [facility] | | | | | | [facility] | | + + + + + + | Chol/HDL | 2.8 | <=5.0 | [facility] | | | Ratio | | | [facility] | | [facility] | [facility] | | | | | | [facility] | | + + + + + + | LDL, | 42Comment: LDL reference | <130 mg/dL | [facility] | | | Calculated | range: < 100 | | [facility] | | | | mg/dL [id number] - | | HOSPITAL | | | | 129 mg/dL Near | | LABORATORY | | | | [id number] - 159 mg/dL | | | | | | [id number] - 189 | | | | | | mg/dL High | | | | | | > 190 mg/dL Very | | | | | | High | | | | + + + + + + + + | Specimen | + + | Blood | + + + + + + + | Performing | Address | City/State/Zipcode | Phone Number | | Organization | | | | + + + + + | [facility] | [address] | [place] [address] | [phone] | | [facility] | | | | + + + + + Comprehensive Metabolic Panel (03/26/2019 7:38 AM PDT) + + + + + + | Component | Value | Ref Range | Performed | Pathologist | | | | | At | Signature | + + + + + + | Na | 145 (H) | 132 - 143 | [facility] | | | | | mmol/L | [facility] | | | | | | [facility] | | + + + + + + | K | 3.2 (L) | 3.3 - 4.9 | [facility] | | | | | mmol/L | [facility] | | | | | | [facility] | | + + + + + + | Cl | 104 | 95 - 108 mmol/L | [facility] | | | | | | [facility] | | | | | | [facility] | | + + + + + + | CO2 | 33 | 23 - 34 mmol/L | [facility] | | | | | [facility] | | | | | | [facility] | | + + + + + + | Anion Gap | 8 | 7 - 16 mmol/L | [facility] | | | | | | [facility] | | | | | | [facility] | | + + + + + + | Glucose | 89 | 70 - 110 mg/dL | [facility] | | | | | [facility] | | | | | | [facility] | | + + + + + + | BUN | 15 | 5 - 26 mg/dL | [facility] | | | | | | [facility] | | | | | | [facility] | | + + + + + + | Creatinine | 0.75 | 0.70 - 1.40 | [facility] | | | | | mg/dL | [facility] | [facility] | | | | | | [facility] | | + + + + + + | eGFR if not | >60Comment: GLOMERULAR | >=60 | [facility] | | | | FILTRATION | mL/min/1.73m2 | [facility] | | | [facility]OAN | RATE,ESTIMATED | | HOSPITAL | | | | mL/min/1.54w6Jram than | | LABORATORY | | | | 60 Chronic kidney | | | | | | disease,if found over a | | | | | | 3-month period.Less than | | | | | | 15 Kidney failureFor | | | | | | | | | | | | Americans,multiply the | | | | | | calculated GFR by 1.21. | | | | | | | | | | + + + + + + | Calcium | 8.6 | 8.3 - 10.0 | [facility] | | | | | mg/dL | [facility] | | | | | | [facility] | | + + + + + + | Albumin | 2.9 (L) | 3.0 - 4.5 g/dL | [facility] | | | | | | [facility] | | | | | | [facility] | | + + + + + + | Bilirubin | 0.8 | 0.0 - 1.2 mg/dL | [facility] | | | Total | | | [facility] | [facility] | | | | | | [facility] | | + + + + + + | Total | 7.0 | 6.6 - 8.5 g/dL | [facility] | | | Protein | | | [facility] | | | | | [facility] | | | | | | [facility] | | + + + + + + | AST | 26 | 0 - 38 U/L | [facility] | | | | | | [facility] | | | | | | [facility] | | + + + + + + | ALT | 17 | 16 - 63 U/L | [facility] | | | | | | [facility] | | | | | | [facility] | | + + + + + + | Alkaline | 76 | 46 - 116 U/L | [facility] | | | Phosphatase | | | [facility] | | [facility] | [facility] | | | | | | [facility] | | + + + + + + | Globulin | 4.1 | 2.4 - 4.5 g/dL | [facility] | | | | | | [facility] | | | | | | [facility] | | + + + + + + | Albumin/[place] | 0.7 (L) | 0.8 - 2.0 | [facility] | | | bulin Ratio | | | [facility] | | | | | | [facility] | | + + + + + + | BUN/Creatin | 20.0 | 7.0 - 24.0 | [facility] | | | ine Ratio | | | [facility] | | | | | | [facility] | | + + + + + + + + | Specimen | + + | Blood | + + + + + + + | Performing | Address | City/State/Zipcode | Phone Number | | Organization | | | | + + + + + | [facility] | [address] | [place] [address] | [phone] | | [facility] | | | | + + + + + CBC no Differential (03/26/2019 7:38 AM PDT) + + + + + + | Component | Value | Ref Range | Performed | Pathologist | | | | | At | Signature | + + + + + + | WBC | 8.9 | 4.6 - 10.5 K/uL | [facility] | | | | | | [facility] | | | | | | [facility] | | + + + + + + | RBC | 4.17 (L) | 4.36 - 5.83 | [facility] | | | | | M/uL | [facility] | | | | | | [facility] | | + + + + + + | Hemoglobin | 14.6 | 13.1 - 17.4 | [facility] | | | | | g/dL | [facility] | | | | | | [facility] | | + + + + + + | Hematocrit | 42.8 | 39.0 - 51.9 % | [facility] | | | | | | [facility] | | | | | | [facility] | | + + + + + + | MCV | 102.6 (H) | 82.0 - 96.0 fL | [facility] | | | | | | [facility] | | | | | | [facility] | | + + + + + + | MCH | 35.0 (H) | 27.7 - 32.3 pg | [facility] | | | | | | [facility] | | | | | | [facility] | | + + + + + + | MCHC | 34.1 | 32.0 - 36.9 | [facility] | | | | | g/dL | [facility] | | | | | | [facility] | | + + + + + + | RDW-CV | 13.9 | 0.0 - 17.0 % | [facility] | | | | | | [facility] | | | | | | [facility] | | + + + + + + | Platelet | 174 | 150 - 450 K/uL | [facility] | | | Count | | | [facility] | | | | | | [facility] | | + + + + + + | MPV | 11.1 | 9.4 - 12.4 fL | [facility] | | | | | | [facility] | [facility] | | | | | | [facility] | | + + + + + + + + | Specimen | + + | Blood | + + + + + + + | Performing | Address | City/State/Zipcode | Phone Number | | Organization | | | | + + + + + | [facility] | [address] | [place] [address] | [phone] | | [facility] | | | | + + + + + Drugs of Abuse, Panel, Pain Management 1 (02/13/2019 10:45 AM PDT) + + + + + + | Component | Value | Ref Range | Performed | Pathologist | | | | | At | Signature | + + + + + + | Prescribed | [place](TM) | | REFERENCE | | | Drug 1, | | | [facility] | | | Urine | | | [facility]AGNOST[facility] | | | | | | - [place] | | | | | | [place] | | + + + + + + | Creatinine | 316.0 | >=20.0 mg/dL | REFERENCE | | [...] + + + + | Hydrocodone | 3777 (H) | <50 ng/mL | REFERENCE | | | Confirm, | | | [facility] | | | Urine | | | DIAGNOST[facility] | | | | | | - [place] | | | | | | [place] | | + + + + + + | Hydrocodone | CONSISTENT | | REFERENCE | | | medMATCH | | | [facility] | | | | | | [facility] | | | | | | - [place] | | | | | | [place] | | + + + + + + | Hydromorpho | 577 (H) | <50 ng/mL | REFERENCE | | | ne, | | | [facility] | | | Confirm, | | | DIAGNOSTICS | | | Urine | | | - [place] | | | | | | [place] | | + + + + + + | Hydromorpho | CONSISTENT See Note 1 | | REFERENCE | [...] + + + | Morphine | CONSISTENT | | REFERENCE | | | medMATCH | | | [facility] | | | | | | [facility] | | | | | | - [place] | | | | | | [place] | | + + + + + + | Norhydrocod | 4187 (H) | <50 ng/mL | REFERENCE | | | one | | | [facility] | | | Confirm, | | | DIAGNOSTICS | | | Urine | | | - [place] | | | | | | [place] | | + + + + + + | Norhydrocod | CONSISTENT See Note 2 | | REFERENCE | | | one | | | [facility] | | | medMATCH | | | DIAGNOSTICS | | | | | | - [place] | | | | | | [place] | | + + + + + + | Oxycodone, | NEGATIVE CONFIRMED | <100 ng/mL | REFERENCE | | | UR | | | [facility] | | | | | | [facility]AGNOST[facility] | | | | | | - [facility] | | | | | | [place] | | + + + + + + | Noroxycodon | NEGATIVE | <50 ng/mL | REFERENCE | | | e Confirm, | | | [facility] | | | Urine | | | DIAGNOSTICS | | | | | | - [facility] | | | | | | [facility] | | + + + + + + | Noroxycodon | CONSISTENT | | REFERENCE | | | e medMATCH | | | [facility] | | | | | | [facility] | | | | | | - [place] | | | | | | [place] | | + + + + + + | Oxycodone | NEGATIVE | <50 ng/mL | REFERENCE [...] + + + + + + | Oxymorphone | NEGATIVE | <50 ng/mL | REFERENCE | | | Confirm, | | | [facility] | | | Urine | | | DIAGNOSTICS | | | | | | - [place] | | | | | | [place] | | + + + + + + | Oxymorphone | CONSISTENT | | REFERENCE | | [...] | [facility] | | | | 2: Norhydrocodone is a | | | | | | metabolite of | | | | | | Hydrocodone. This | | | | | | [...] Diagnostics | | | | | | [facility] | | | | | [...] | | | | | | [facility] | | | | | | Kathia Pastor M.D., | | | | | | Ph.D., Laboratory | | | | | | Director [id number] | | | | | | [facility] | | | | | | [place] [address] | | | | | | OBINNA #[id number] | | | | + + + + + + + + | Specimen | + + | Urine | + + + + + + + | Performing | Address | City/State/Zipcode | Phone Number | | Organization | | | | + + + + + | REFERENCE LAB | [address] [facility] | [place] | | | [facility] - | | [address] | | | [place] | | | | + + + + + documented in this encounter Visit Diagnoses + + | Diagnosis | + + | Pain management - Primary Other specified rehabilitation procedure | + + | 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
--- OUTSIDE RECORDS SUMMARY | ~2019-09-01 | XMS | Encounter Summary ---
Demographics + + + | Address | [address] | | | [place] [address] | + + + | Home Phone | | + + + | Preferred Language | Unknown | + + + | Marital Status | | + + + | Lutheran Affiliation | Unknown | + + + | Race | Unknown | + + + | Ethnic Group | Unknown | + + + Author + + + | Author | [facility] | | | and [place] | + + + | Organization | [facility] | | | and [...] Providers + +------+ + | Care Business Process Modeler Name | Role | Phone | + +------+ + PCP | Unavailable | + +------+ + Encounter Details +--------+ + + + + | Date | Type | Department | Care Team | Description | +--------+ + + + + | 03/16/ | Hospital | [facility] | [facility] | | | 2011 | Encounter | [facility] [address] | [address] | | | | | [address] | [address] | | | | | [place] | [place] [id number] | | | | | [address] | [phone] | | | | | [phone] | | | +--------+ + + + [...]
--- OUTSIDE RECORDS SUMMARY | ~2019-09-01 | XMS | Encounter Summary ---
Demographics + + + | Address | [address] | | | [place] [address] | + + + | Home Phone | | + + + | Preferred Language | Unknown | + + + | Marital Status | | + + + | Hindu Affiliation | Unknown | + + + | Race | Unknown | + + + | Ethnic Group | Unknown | + + + Author + + + | Author | [facility] | | | and [place] | + + + | Organization | [facility] | | | and [place] [...] Team Providers + +------+ + | Care Product Development Carpenter Name | Role | Phone | + +------+ + | Faith Rodríguez SENIOR GIS ANALYST | PCP | | + +------+ + Reason for Referral Diagnostic/Screening (Routine) +--------+--------+ + + + + | Status | Reason | Specialty | Diagnoses / | Referred By | Referred To | | | | | Procedures | Contact | Contact | +--------+--------+ + + + + | Closed | | Radiology | Diagnoses | Sidney | Ingris Nuclear | | | | | Coronary | Deangelo | Medicine | | | | | artery | MD Brendan | [address] | | | | | disease, | [address] | [place], | | | | | angina | [place] | [place] | | | | | presence | [place], [place] | [address] | | | | | unspecified, | [address] | Phone: | | | | | unspecified | Phone: | [phone] | | | | | vessel or | [phone] | Fax: | | | | | lesion type, | Fax: | [phone] | | | | | unspecified | [phone] | | | | | | whether | | | | | | | the [place] or | | | | | | | transplanted | | | | | | | heart | | | | | | | Congestive | | | | | | | heart | | | | | | | failure, | | | | | | | unspecified | | | | | | | congestive | | | | | | | heart | | | | | | | failure | | | | | | | chronicity, | | | | | | | unspecified | | | | | | | congestive | | | | | | | heart | | | | | | | failure type | | | | | | | Procedures | | | | | | | NM Nuclear | | | | | | | Stress Test | | | | | | | | | | | | | | (Vasodilator | | | | | | | ) CHG | | | | | | | MYOCARDIAL | | | | | | | SPECT | | | | | | | MULTIPLE | | | | | | | STUDIES DC | | | | | | | CV STRS TST | | | | | | | XERS&/OR RX | | | | | | | CONT ECG W/O | | | | | | | I&R DC | | | | | | | CARDIAC | | | | | | | STRESS | | | | | | | TST,INTERP/R | | | | | | | EPT ONLY | | | +--------+--------+ + + + + Reason for Visit + + + | Reason | Comments | + + + | Follow-up | | + + + Evaluate & Treat (Routine) +--------+--------+ + + + + | Status | Reason | Specialty | Diagnoses / | Referred By | Referred To | | | | | Procedures | Contact | Contact | +--------+--------+ + + + + | Closed | | Cardiology | Diagnoses | Stephen, | [facility] | | | | | Arterial | MD Marcial | Cardiology | | | | | embolism and | [address] | [address] | | | | | thrombosis | [address] | [place], | | | | | Encounter | Drive [place] | [place] | | | | | for other | [place], [place] | [address] | | | | | preprocedura | [address] | Phone: | | | | | l | Phone: | [phone] | | | | | examination | [phone] | Fax: | | | | | Procedures | Fax: | [phone] | | | | | SENIOR GIS ANALYST | [phone] | | +--------+--------+ + + + + Encounter Details +--------+---------+ + + + | Date | Type | Department | Care Team | Description | +--------+---------+ + + + | 10/12/ | Office | [facility] | Deangelo Macias | Abdominal aortic | | 2017 | Visit | CARDIOLOGY [address] | MD Brendan [address] | aneurysm (AAA) | | | | [address] [place], | [address] [place] | without rupture | | | | [place] [address] | [place] [address] | (HCC) (Primary Dx); | | | | [phone] | [phone] | Essential | | | | | | hypertension; | | | | | | Hyperlipidemia, | | | | | | unspecified | | | | | | hyperlipidemia type; | | | | | | Coronary artery | | | | | | disease, angina | | | | | | presence | | | | | | unspecified, | | | | | | unspecified vessel | | | | | | or lesion type, | | | | | | unspecified whether | | | | | | the [place] or | | | | | | transplanted heart; | | | | | | Congestive heart | | | | | | failure, unspecified | | | | | | congestive heart | | | | | | failure chronicity, | | | | | | unspecified | | | | | | congestive heart | | | | | | failure type (HCC); | | | | | | Tobacco use disorder | +--------+---------+ + + + Social [...] + + + | Blood Pressure | 148/52 | 10/12/2017 12:41 PM | | | | | PST | | + + + + + | Pulse | 68 | 10/12/2017 12:41 PM | | | | | PST | | + + + + + | Temperature | - | - | | + + + + + | Respiratory Rate | 16 | 10/12/2017 12:41 PM | | | | | PST | | + + + + + | Oxygen Saturation | - | - | | + + + + + | Inhaled Oxygen | - | - | | | Concentration | | | | + + + + + | Weight | 68.2 kg (150 lb 5.7 | 10/12/2017 12:41 PM | | | | oz) | PST | | + + + + + | Height | 175.3 cm (5' 9") | 10/12/2017 12:41 PM | | | | | PST | | + + + + + | Body Mass Index | 22.2 | 10/12/2017 12:41 PM | | | | | PST | | + + + + + documented in this encounter Patient Instructions Patient Instructions Linda Cooper RN - 10/12/2017 1:00 PM PST Start Clopidogrel 75mg - take one tablet by mouth one time daily Start Carvedilol 6.25mg - take one tablet by mouth twice daily Blood test: Non-fasting Date Due: same day as stress test Where to go for labs: [facility]- [address] [facility] Persantine/Lexiscan Myoview Date: Check-in Time: Where to Check In: Instructions 1. Nothing to eat or drink anything 6 hours prior to Persantine/Lexiscan 2. DO NOT drink caffeine 12 hours prior to the test. 3. DO NOT take any Carvedilol or Nitro SL the night before or the morning of the test. 4. You can take all other medications the morning of the test with a small sip of water. 5. Please bring a list of your current medications with you. Resting Portion of test: Date: Check-in Time: Where to Check In: Follow up appointment: same day as stress test Provider: Ira Macias MD Date: Check-In Time: documented in this encounter Progress Notes Deangelo Macias MD - 10/12/2017 1:00 PM PSTFormatting of this note might be differe nt from the original. PATIENT NAME: Saturnino Avila : 1945: AGE: 72 y.o. REFERRED BY: Marcial Mitchell PRIMARY CARE: Faith Rodríguez NP CARDIOLOGY OFFICE VISIT Date of Service: 10/12/17 HISTORY OF PRESENT ILLNESS: Saturnino Avila is a 72 y.o. male with a history of heart failure, severe emphysema, prior anteroseptal NC and strokes, heavy tobacco use, abdominal aortic aneurysm and lower extremi ty PAD status post prior surgical revascularization, malnutrition and ventral hernia. He is being seen today for further consultation. He is referred by Marcial Mitchell for further evaluation given his history of severe systolic d ysfunction, heart failure, and preoperative assessment prior to possible ventral hernia repa ir. He was also recently seen by pulmonology given his history of heavy tobacco use, COPD a nd severe emphysema. He recently underwent CT imaging which revealed pulmonary nodules and he is scheduled to undergo a PET scan in the near future. He is moderately active, however limited with exertional dyspnea. He denies chest pains pe r se. He has managed to cut back his smoking to about one pack per day. He believes that bre toure has known about heart failure in the past but denies any previous invasive workup or revas cularization. He is not a very good historian. He also admits to [place] of alcohol use. MEDICAL, SURGICAL, AND PERSONAL [...] tablet Take 1 tablet by mouth Daily. capsaicin (ZOSTRIX) 0.025% cream Apply topically Daily. cyclobenzaprine (FLEXERIL) 10 mg tablet Take 10 [...] tablets by mouth 2 times d aily. 120 tablet 0 lisinopril (PRINIVIL,ZESTRIL) 40 MG tablet Take 40 mg by mouth Daily. nicotine polacrilex (NICOTINE MINI) [address] 4 mg inside cheek every 2 hours. nitroglycerin (NITROSTAT) 0.[address] 1 tablet under the tongue every 5 stacy sade as needed for Chest pain. 25 tablet 1 Nutritional Supplements (ENSURE PLUS HN) LIQD Take by mouth 2 times daily. omeprazole (PRILOSEC) 20 mg capsule Take 20 mg by mouth 2 times daily. prazosin (MINIPRESS) 2 MG capsule Take 1 capsule by mouth 2 times daily. 60 capsule 11 simvastatin (ZOCOR) 80 mg tablet Take 80 mg by mouth nightly. tiotropium-olodaterol (STIOLTO RESPIMAT) 2.5-2.5 mcg/puff inhaler Inhale 2 puffs into t he lungs Daily. traZODone (DESYREL) 100 mg tablet Take 100 mg by mouth nightly. No current facility-administered medications for this visit. ALLERGIES Allergies Allergen Reactions Aspirin Nausea Only and Swelling Bee Venom Anaphylaxis Codeine Nausea And Vomiting ROS I have reviewed the Review of Systems form dated today and scanned into the media tab. OBJECTIVE: PHYSICAL EXAM BP 148/52 | Pulse 68 | Resp 16 | Ht 1.753 m (5' 9") | Wt 68.2 kg (150 lb 5.7 oz) | BMI 22.20 kg/m Physical Exam Constitutional: He is oriented to person, place, and time. He appears well-developed and we ll-nourished. HENT: Head: Normocephalic. Eyes: No scleral icterus. Neck: Normal carotid pulses and no JVD present. Carotid bruit is not present. Cardiovascular: Normal rate, regular rhythm, S1 normal, S2 normal, intact distal pulses and normal pulses. Occasional extrasystoles are present. PMI is displaced. Exam reveals no g allop and no midsystolic click. Murmur heard. Harsh midsystolic murmur is present with a grade of 2/6 at the upper right sternal border radiating to the neck Pulses: Carotid pulses are 2+ on the right side, and 2+ on the left side. Radial pulses are 2+ on the right side, and 2+ on the left side. Pulmonary/Chest: Effort normal. No accessory muscle usage. No respiratory distress. He has wheezes in the right lower field and the left lower field. He has no rhonchi. He has no rale s. Abdominal: Soft. Normal aorta and bowel sounds are normal. He exhibits no abdominal bruit. There is no hepatosplenomegaly. There is no tenderness. Healed abdominal scar noted. Musculoskeletal: He exhibits no edema. Neurological: He is alert and oriented to person, place, and time. Gait normal. Skin: Skin is warm and dry. No cyanosis. Nails show no clubbing. Psychiatric: He has a normal mood and affect. His mood appears not anxious. He does not exh ibit a depressed mood. Vitals reviewed. ECG: Reviewed by me today shows sinus rhythm, heart rate 66, PACs, RBBB/LAFB bifascicula r block, old anteroseptal infarction with diffuse ST segment abnormalities and septal Q wave . LAB RESULTS: LIPID No results found for: CHOL, TRIG, HDL, LDL, CHOLHDL, LDLEX, HDLEX, TRIGEX, CHOLEX CHEMISTRY Lab Results Component Value Date GLU 114 07/20/2017 GLUEX 100 06/13/2017 NA 140 07/20/2017 NAEX 137 06/13/2017 K 3.9 07/20/2017 KEX 3.5 06/13/2017 CL 106 07/20/2017 CLEX 102 06/13/2017 CO2 28 07/20/2017 CO2EX 27 06/13/2017 CALCIUM 8.5 07/20/2017 ALKPHOS 59 07/20/2017 ASTEX 21 07/20/2017 ALTEX 23 07/20/2017 CREA 0.88 07/20/2017 BUN 18 07/20/2017 EGFREX >60 06/13/2017 CREEX 0.95 06/13/2017 HEMATOLOGY Lab Results Component Value Date WBC 6.4 06/13/2017 WBCEX 6.4 06/13/2017 HGBEX 13.9 06/13/2017 HCTEX 39.9 06/13/2017 PLTEX NORMAL 06/13/2017 I reviewed records from PCP for office visit on 06/13/17 and again 09/21/17 and pulmonary co nsultation and 09/19/17. Echocardiogram 08/04/17 reviewed by me [...] valve atherosclerosis descending thoracic aorta mural thrombus. ASSESSMENT: 1. CAD/ischemic cardiomyopathy - patient has ECG evidence of prior anteroseptal myocardial infarction now with echocardiographic evidence of moderate to severe global hypokinesis and significant LV systolic dysfunction. He has high likelihood of having underlying multivess el CAD. He is a poor candidate for attempted revascularization especially in light of incre ased perioperative risk for any attempts at surgical revascularization given his underlying severe emphysema and malnutrition, and given his history of established severe peripheral ar terial disease especially aortic disease there is additional increased risk associated with attempts at invasive approach. For now focus will remain on optimizing medical therapy of i schemic cardiomyopathy and further elucidation of his pulmonary picture regarding possible p resence of underlying malignancy. A PET scan and possible needle biopsy have been planned. He has not been on aspirin therapy and describes history of allergy/intolerance. I will higgibnotham ve him start on clopidogrel 75 mg daily. We will also start him on carvedilol beginning at 6.25 mg BID, which can be up titrated as tolerated. We will check a BNP. I will have him undergo a pharmacologic stress perfusion imaging study in an attempt to yousuf ntitate underlying burden of ischemia to help with future management plan for underlying pro bable multivessel CAD. Patient will be of very high perioperative risk given the combination of severe ischemic ca rdiomyopathy and underlying emphysema with possible malignancy. 2. Peripheral arterial disease - patient describes [...] does not feel very confident. PLAN: 1. Stress perfusion imaging study. 2. Additional therapy with clopidogrel and carvedilol hearing otherwise continue current m edications. 3. Continue pulmonary consultation and workup. 4. Tobacco cessation. 5. Patient will remain of high perioperative risk, even for hernia repair surgery. 6. Follow-up visit within a few weeks. 7. Check BNP. Portions of this report were transcribed using voice recognition software. Every effort wa s made to ensure accuracy; however, inadvertent computerized cert occupational therapy asst errors may be pre sent. Electronically signed by: Kya Macias MD PhD [facility] 10/12/2017 documented in t his encounter Plan of Treatment Not on filedocumented as of this encounter Procedures + +--------+ + + + | Procedure Name | Priori | Date/Time | Associated Diagnosis | Comments | | | ty | | | | + +--------+ + + + | ECG 12 LEAD | Routin | 10/12/2017 | Abdominal aortic | Results for this | | | e | 12:53 PM | aneurysm (AAA) | procedure are in the | | | | PST | without rupture | results section. | | | | | (HCC) Essential | | | | | | hypertension | | | | | | Hyperlipidemia, | | | | | | unspecified | | | | | | hyperlipidemia type | | + +--------+ + + + documented in this encounter Results NM Nuclear Stress Test (Vasodilator) (01/02/2018 2:04 PM PDT) + + | Specimen | + + | | + + + + + | Impressions | Performed At | + + + | 1. Regadenoson EKG is abnormal at baseline without diagnostic | [facility] | | changes post stress. 2. Abnormal Regadenoson Sestamibi myocardial | | | perfusion study, notable for a moderate sized moderate intensity | | | inferoapical perfusion defect without significant reversibility, | | | with a normal left ventricular size and wall thickness. Mildly | | | reduced left ventricular systolic function. LVEF by gated SPECT | | | 46%. Signed by: Kya Macias MD PhD [facility] | | | 01/02/2018, 14:05 | | + + + + + --+ | Narrative | Performed At | + + --+ | | [facility] | | NUCLEAR MEDICINE STRESS TEST REPORT Patient Name: Saturnino Avila | | | Study Date: 01/02/2018 Primary Care Provider: Faith Rodríguez NP | | | : 1945 Age: 72 y.o. Gender: male | | | CLINICAL HISTORY/DIAGNOSIS: CAD, CHF REGADENOSON SESTAMIBI STRESS | | | TESTIndication: CAD, CHF Procedure: In the supine position, 0.4 mg | | | of Regadenoson was infused intravenously over 10 seconds. Blood | | | pressure and EKG were monitored every 1 minute. 5 mL of normal | | | saline was utilized to flush the IV line. Twenty seconds later, | | | 10.76 mCi sestamibi intravenous injection. SPECT myocardial | | | perfusion imaging was acquired with wall motion analysis. Rest | | | imaging was performed using 31.4 mCi Sestamibi intravenous injection. | | | Repeated SPECT myocardial perfusion imaging was acquired with wall | | | motion analysis. At the end of the procedure, 0 mg of aminophylline | | | was infused intravenously. Hemodynamics: Heart rate baseline 68 | | | beats per minute, peak 86 beats per minute. Blood pressure baseline | | | 189/71 mmHg, peak 169/65 mmHg. EKG baseline underlying sinus rhythm | | | with RBBB/LAFB (bifascicular block). Abnormal EKG. Peak unchanged. | | | Side Effects: None. Arrhythmia: None. Regadenoson Sestamibi | | | Myocardial Perfusion Imaging Result: The Regadenoson Sestamibi | | | tomographic images, reviewed without the attenuation compensation | | | resolution, revealed an abnormal myocardial perfusion pattern as seen | | | in short axis, vertical long axis, and horizontal long axis | | | projections notable for a moderate sized moderate intensity | | | inferoapical perfusion defect. The left ventricular cavity is normal. | | | Gated SPECT reveals a normal left ventricular wall thickness | | | and motion. Mildly reduced left ventricular systolic function. LVEF | | | by gated SPECT is 46%. | | |Heart rate baseline 68 beats per minute, peak 86 beats per minute. Blood | | |pressure baseline 189/71 mmHg, peak 169/65 mmHg. EKG baseline underlying | | |sinus rhythm with RBBB/LAFB (bifascicular block). Abnormal EKG. Peak | | |unchanged. | | | | | |Side Effects: None. | | | | | |Arrhythmia: None. | | | | | |Regadenoson Sestamibi Myocardial Perfusion Imaging Result: | | | The Regadenoson Sestamibi tomographic images, reviewed without the | | |attenuation compensation resolution, revealed an abnormal myocardial | | |perfusion pattern as seen in short axis, vertical long axis, and | | |horizontal long axis projections notable for a moderate sized moderate | | |intensity inferoapical perfusion defect. The left ventricular cavity is | | |normal. | | | | | | Gated SPECT reveals a normal left ventricular wall thickness and motion. | | |Mildly reduced left ventricular systolic function. LVEF by gated SPECT is | | |46%. | | | | | + + --+ + +---------+ + + | Performing | Address | City/State/Zipcode | Phone Number | | Organization | | | | + +---------+ + + | [facility] | | | | + +---------+ + + ECG 12 lead (10/12/2017 12:53 PM PST) + + + + + + | Component | Value | Ref Range | Performed | Pathologist | | | | | At | Signature | + + + + + + | VENTRICULAR | 66 | BPM | [facility] | | | RATE EKG | | | | | + + + + + + | ATRIAL RATE | 66 | BPM | [facility] | | + + + + + + | P-R | 168 | ms | [facility] | | | INTERVAL | | | | | + + + + + + | QRS | 128 | ms | [facility] | | | DURATION | | | | | + + + + + + | Q-T | 480 | ms | [facility] | | | INTERVAL | | | | | + + + + + + | Q-T | 503 | ms | [facility] | | | INTERVAL | | | | | | (CORRECTED) | | | | | + + + + + + | P WAVE AXIS | 110 | degrees | [facility] | | + + + + + + | QRS AXIS | -63 | degrees | [facility] | | + + + + + + | T AXIS | 85 | degrees | [facility] | | + + + + + + | INTERPRETAT | Sinus rhythm with | | [facility] | | | ION TEXT | premature atrial | | | | | | complexesRight bundle | | | | | | branch blockLeft | | | | | | anterior fascicular | | | | | | block Bifascicular | | | | | | block Septal infarct | | | | | | , age | | | | | | undeterminedAbnormal | | | | | | ECGNo previous ECGs | | | | | | availableConfirmed by | | | | | | BRENDAN MACIAS MD | | | | | | ([id number]) on 10/12/2017 | | | | | | 5:30:57 PM | | | | + + + + + + + + | Specimen | + + | | + + + +---------+ + + | Performing | Address | City/State/Zipcode | Phone Number | | Organization | | | | + +---------+ + + | [facility] | | | | + +---------+ + + documented in this encounter Visit Diagnoses + + | Diagnosis | + + | Abdominal aortic aneurysm (AAA) without rupture (HCC) - Primary | + + | Essential hypertension Unspecified essential hypertension | + + | Hyperlipidemia, unspecified hyperlipidemia type | + + | Coronary artery disease, angina presence unspecified, unspecified vessel or lesion | | type, unspecified whether the [place] or transplanted heart | + + | Congestive heart failure, unspecified congestive heart failure chronicity, unspecified | | congestive heart failure type | + + | Tobacco use disorder | + + documented in this encounter
--- OUTSIDE RECORDS SUMMARY | ~2019-09-01 | XMS | Encounter Summary ---
Demographics + + + | Address | [address] | | | [place] [address] | + + + | Home Phone | | + + + | Preferred Language | Unknown | + + + | Marital Status | | + + + | Moravian Affiliation | Unknown | + + + | Race | Unknown | + + + | Ethnic Group | Unknown | + + + Author + + + | Author | [facility] | | | and [place] | + + + | Organization | [facility] | | | and [...] Team Providers + +------+ + | Care Price Analyst Name | Role | Phone | + +------+ + | Faith Rodríguez NP | PCP | | + +------+ + Reason for Visit +---------+ + | Reason | Comments | +---------+ + | Results | | +---------+ + Encounter Details +--------+ + + + + | Date | Type | Department | Care Team | Description | +--------+ + + + + | 11/27/ | Telephone | [place] | Faith Rodríguez | Results | | 2018 | | [facility] | D, [facility] | | | | | [facility] [address] | [facility] | | | | | [facility], | [place], [place] [address] | | | | | [place] [address] | [phone] | | | | | [phone] | | | +--------+ + + + [...]
--- OUTSIDE RECORDS SUMMARY | ~2019-09-01 | XMS | Encounter Summary ---
Demographics + + + | Address | [address] | | | [place] [address] | + + + | Home Phone | | + + + | Preferred Language | Unknown | + + + | Marital Status | | + + + | Pentecostalism Affiliation | Unknown | + + + | Race | Unknown | + + + | Ethnic Group | Unknown | + + + Author + + + | Author | [facility] | | | and [place] | + + + | Organization | [facility] | | [...] Team Providers + +------+ + | Care Datastage Architect Name | Role | Phone | + +------+ + | Aric Palmer PCP | | | PA-C | | | + +------+ + Reason for Referral Diagnostic/Screening (Routine) +--------+--------+ + + + + | Status | Reason | Specialty | Diagnoses / | Referred By | Referred To | | | | | Procedures | Contact | Contact | +--------+--------+ + + + + | Closed | | Radiology | Diagnoses | Spencer | [address] | | | | | Pulmonary | Aric | [address] | | | | | nodules | Giovani, | [place] | | | | | Procedures | PA-C [address] | [place] [address] | | | | | CT Chest wo | [address] | Phone: | | | | | Contrast CT | [place], [place] | [phone] | | | | | Chest | [address] | Fax: | | | | | Abdomen wo | Phone: | [phone] | | | | | Contrast | [phone] | | | | | | | Fax: | | | | | | | [phone] | | +--------+--------+ + + + + Encounter Details +--------+ + + + + | Date | Type | Department | Care Team | Description | +--------+ + + + + | 09/17/ | Orders Only | [place] [facility] | Aric Palmer | Pulmonary nodules | | 2018 | | [facility] [place] | [place] [address] | (Primary Dx) | | | | PRIMARY CARE [address] | [address] [place], | | | | | [address] [place], | [place] [address] | | | | | [place] [address] | [phone] | | | | | [phone] | | | +--------+ + + + [...] on filedocumented as of this encounter Results CT Chest wo Contrast (10/15/2018 9:39 AM PST) + + | Specimen | + + | | + + + + + | Impressions | Performed At | + + + | IMPRESSION: 1. Stable right upper lobe spiculated opacity. This | [facility] | | demonstrates 18 months of stability. 1 additional 6 to 12 month | | | follow-up is recommended to ensure stability. Attention to the | | | stable left lower lobe nodules is recommended at that time. 2. Stable | | | ectasia of the ascending aorta. 3. Stable mild aneurysmal dilatation | | | of the descending thoracic aorta. 4. Pulmonary hypertension. 5. | | | Emphysema. 6. Coronary artery disease. 7. Trace pericardial | | | effusion. Dictated by: Juan Miguel Haider | | + + + + + + | Narrative | Performed At | + + + | EXAMINATION: CT CHEST WO CONTRAST HISTORY: lung nodules. | [facility] | | please compare with previous imaging thank you COMPARISON STUDY: | | | July 31, 2017, April 28, 2017 TECHNIQUE: 5 mm axial slices were | | | acquired through the lungs without contrast. Multiplanar MIP | | | reconstructions were performed. DOSE REPORT: CTDIvol: 5.0 mGy. | | | DLP: 194 mGy-cm. Automated exposure control was utilized. | | | FINDINGS: Evaluation is mildly limited due to lack of intravenous | | | contrast. The thyroid gland has a hypodense nodule within the right | | | lobe, unchanged. Main pulmonary artery is upper limits of normal | | | measuring 3 cm. Proximal ascending aorta measures 4.1 cm. Mild | | | aneurysmal dilatation of the descending thoracic aorta measuring 4.5 x | | | 4.3 cm. There is associated calcified and noncalcified plaque. | | | Calcifications are noted within the right coronary artery, circumflex | | | and left anterior descending coronary artery. Aortic annular | | | calcifications. Mediastinum and hilum demonstrate scattered lymph | | | nodes. No aneurysmal dilatation. Heart size is normal. Trace | | | pericardial effusion. No pleural effusion. No pneumothorax. Marked | | | emphysematous change of the lungs. Lung parenchyma demonstrates | | | spiculated opacity in the inferior right upper lobe on image number | | | 125. This measures 9 mm. No interval change. In the left lower | | | lobe on image number 174 is a stable 5 mm subpleural nodule. More | | | centrally located on image number 171 is a 4-5 mm focus described | | | previously as a nodule. This may be artifactual related to vascular | | | confluence. Aerodigestive tract is normal. Limited evaluation of | | | abdominal viscera. No obvious abnormality. No acute bone process. | | | | | + + + + + | Procedure Note | + + | Ishaan, Rad Results In - 10/15/2018 10:01 AM PST EXAMINATION:CT CHEST WO | | CONTRASTHISTORY:lung nodules. please compare with previous imaging thank youCOMPARISON | | STUDY:July 31, 2017, April 28, 2017TECHNIQUE:5 mm axial slices were acquired through the | | lungs without contrast. Multiplanar MIP reconstructions were performed.DOSE | | REPORT:CTDIvol: 5.0 mGy. DLP: 194 mGy-cm. Automated exposure control was | | utilized.FINDINGS:Evaluation is mildly limited due to lack of intravenous contrast.The | | thyroid gland has a hypodense nodule within the right lobe, unchanged.Main pulmonary | | artery is upper limits of normal measuring 3 cm.Proximal ascending aorta measures 4.1 | | cm.Mild aneurysmal dilatation of the descending thoracic aorta measuring 4.5 x 4.3 cm. | | There is associated calcified and noncalcified plaque.Calcifications are noted within | | the right coronary artery, circumflex and left anterior descending coronary | | artery.Aortic annular calcifications.Mediastinum and hilum demonstrate scattered lymph | | nodes. No aneurysmal dilatation.Heart size is normal.Trace pericardial effusion.No | | pleural effusion.No pneumothorax.Marked emphysematous change of the lungs.Lung | | parenchyma demonstrates spiculated opacity in the inferior right upper lobe on image | | number 125. This measures 9 mm. No interval change.In the left lower lobe on image | | number 174 is a stable 5 mm subpleural nodule. More centrally located on image number | | 171 is a 4-5 mm focus described previously as a nodule. This may be artifactual related | | to vascular confluence.Aerodigestive tract is normal.Limited evaluation of abdominal | | viscera. No obvious abnormality.No acute bone process.IMPRESSION: IMPRESSION:1. Stable | | right upper lobe spiculated opacity. This demonstrates 18 months of stability. 1 | | additional 6 to 12 month follow-up is recommended to ensure stability. Attention to the | | stable left lower lobe nodules is recommended at that time.2. Stable ectasia of the | | ascending aorta.3. Stable mild aneurysmal dilatation of the descending thoracic aorta.4. | | Pulmonary hypertension.5. Emphysema.6. Coronary artery disease.7. Trace pericardial | | effusion.Dictated by: Juan Miguel SolizamElectronically Signed by: Juan Miguel Haider on | | 10/15/2018 9:58 AM | |No pneumothorax. | |Marked emphysematous change of the lungs. | |Lung parenchyma demonstrates spiculated opacity in the inferior right upper lobe on image n umber 125. This measures 9 mm. No interval change. | |In the left lower lobe on image number 174 is a stable 5 mm subpleural nodule. More centra lly located on image number 171 is a 4-5 mm focus described previously as a nodule. This ma y be artifactual related to vascular confluence. | |Aerodigestive tract is normal. | |Limited evaluation of abdominal viscera. No obvious abnormality. | |No acute bone process. | | | |IMPRESSION: | |IMPRESSION: | |1. Stable right upper lobe spiculated opacity. This demonstrates 18 months of stability. 1 additional 6 to 12 month follow-up is recommended to ensure stability. Attention to the s table left lower lobe nodules is recommended at that time. | |2. Stable ectasia of the ascending aorta. | |3. Stable mild aneurysmal dilatation of the descending thoracic aorta. | |4. Pulmonary hypertension. | |5. Emphysema. | |6. Coronary artery disease. | |7. Trace pericardial effusion. | | | |Dictated by: Juan Miguel Haider | | | | | + + + +---------+ + + | Performing | Address | City/State/Zipcode | Phone Number | | Organization | | | | + +---------+ + + | [facility] | | | | + +---------+ + + documented in this encounter Visit Diagnoses + + | Diagnosis | + + | Pulmonary nodules - Primary Other nonspecific abnormal finding of lung field | + + documented in this encounter"
--- OUTSIDE RECORDS SUMMARY | ~2019-09-01 | XMS | Encounter Summary ---
Demographics + + + | Address | [address] | | | [place] [address] | + + + | Home Phone | | + + + | Preferred Language | Unknown | + + + | Marital Status | | + + + | Church Affiliation | Unknown | + + + | Race | Unknown | + + + | Ethnic Group | Unknown | + + + Author + + + | Author | [facility] | | | and [place] | + + + | Organization | [facility] | | | and [...] Team Providers + +------+ + | Care Tree Trimmer Helper Name | Role | Phone | + +------+ + PCP | Unavailable | + +------+ + Encounter Details +--------+ + + + + | Date | Type | Department | Care Team | Description | +--------+ + + + + | 02/26/ | Hospital | [place] [facility] | Jacklyn [place] | | | 2009 | Encounter | H[facility] X[facility] [address] | [address] | | | | | [address] | [address] | | | | | [place] | [place] [address] | | | | | [address] | [phone] | | | | | [phone] | | | +--------+ + + + [...]
--- OUTSIDE RECORDS SUMMARY | ~2019-09-01 | XMS | Encounter Summary ---
Demographics + + + | Address | [address] | | | [place] [address] | + + + | Home Phone [...] Author | [facility] | | | and [place] | + + + | Organization | [facility] | | | and [place] [...] Team Providers + +------+ + | Care Tankage Grinder Operator Name | Role | Phone | [...] | Support | [facility] | D, PATIENT CARE MANAGER ONE | | | | | PRIMARY CARE [address] | [facility] | | | | | [address] [facility], | [place] [address] | | | | | [place] [address] | [phone] | | | | | [phone] | | | +--------+ + + + [...] he hasn't received his hydrocodone from the [facility]. According to patient's chart, the script was sent on 02/27/18. I told patient to call the [facility] to see if they had sent the mediation yet. Pt also expressed frustration that his medication are not automatically refilled. I told [facility] patient that we do not refill narcotics or controlled substances without a request from [facility] patient or the pharmacy. Pt has an upcoming appt with Faith, he states he will talk to her then. .EDDIE Red CMA documented in this encounter Plan of Treatment Not on filedocumented as of this encounter Visit Diagnoses Not on filedocumented in this encounter"
--- OUTSIDE RECORDS SUMMARY | ~2019-09-01 | XMS | Encounter Summary ---
Demographics + + + | Address | [address] | | | [place] [address] | + + + | Home Phone | | + + + | Preferred Language | Unknown | + + + | Marital Status | | + + + | Druze Affiliation | Unknown | + + + | Race | Unknown | + + + | Ethnic Group | Unknown | + + + Author + + + | Author | [facility] | | | and [place] | + + + | Organization | [facility] | | | and [place] [...] Team Providers + +------+ + | Care Production Clerks Supervisor Name | Role | Phone | [...] Description | +--------+--------+ + + + | 12/19/ | Refill | [place] [facility] | Aric Palmer | Medication Refill | | 2019 | | [facility] | [address] | | | | | PRIMARY CARE [address] | [facility], | | | | | [place] [facility], | [place] [address] | | | | | [place] [address] | [phone] | | | | | [phone] | | | +--------+--------+ + + + [...]
--- OUTSIDE RECORDS SUMMARY | ~2019-09-01 | XMS | Encounter Summary ---
Demographics + + + | Address | [address] | | | [place] [address] | + + + | Home Phone | | + + + | Preferred Language | Unknown | + + + | Marital Status | | + + + | Taoist Affiliation | Unknown | + + + | Race | Unknown | + + + | Ethnic Group | Unknown | + + + Author + + + | Author | [facility] | | | and [place] | + + + | Organization | [facility] | | | and [place] [...] Team Providers + +------+ + | Care Deep Fryer Assembler Name | Role | Phone | [...] Lab Results | | 2018 | | [facility] | D, MEDICAL SECRETARY RECEPTIONIST ONE | | | | | PRIMARY CARE [address] | [facility] | | | | | [address] [facility], [place] | [place] [address] | | | | | [address] | [phone] | | | | | [phone] | | | +--------+ + + + [...]
--- OUTSIDE RECORDS SUMMARY | ~2019-09-01 | XMS | Encounter Summary ---
Demographics + + + | Address | [address] | | | [place] [address] | + + + | Home Phone | | + + + | Preferred Language | Unknown | + + + | Marital Status | | + + + | Muslim Affiliation | Unknown | + + + | Race | Unknown | + + + | Ethnic Group | Unknown | + + + Author + + + | Author | [facility] | | | and [place] | + + + | Organization | [facility] | | | and [place] | [...] Team Providers + +------+ + | Care Hot Tar Roofer Helper Name | Role | Phone | [...] | [facility] | [address] | | | | | IMAGING | [place] | | | | | [phone] | [place] [address] | | +--------+ + + + + [...] +--------+ + + + | XR CHEST PA AND | Routin | 05/01/2017 | | Results for this | | LATERAL | e | 3:40 PM | | procedure are in the | | | | PDT | | results section. | + +--------+ + + + documented in this encounter Results XR Chest PA and Lateral (05/01/2017 3:40 PM PDT) + + | Specimen | + + | | + + + + + | Narrative | Performed At | + + + | External films for comparison only - no result from [place]. | [facility] | + + + + +---------+ + + | Performing | Address | City/State/Zipcode | Phone Number | | Organization | | | | + +---------+ + + | [facility] | | | | + +---------+ + + documented in this encounter Visit Diagnoses Not on filedocumented in this encounter"
--- OUTSIDE RECORDS SUMMARY | ~2019-09-01 | XMS | Encounter Summary ---
Demographics + + + | Address | [address] | | | [place] [address] | + + + | Home Phone [...] | Author | [facility] | | | and [place] | + + + | Organization | [facility] | [...] Team Providers + +------+ + | Care Safety Instructor Name | Role | Phone | + +------+ + PCP | Unavailable | + +------+ + Encounter Details +--------+ + + + + | Date | Type | Department | Care Team | Description | +--------+ + + + + | 03/22/ | [facility] | [place] [facility] | [place] | | | 2017 | Encounter | HOSPITAL [facility]AL | DO [address] | | | | | SURGERY [address] | [address] | | | | | [address], | [place], [place] | | | | | [place] [address] | [address] | | | | | [phone] | [phone] | | | | | | | [...]
--- OUTSIDE RECORDS SUMMARY | ~2019-09-01 | XMS | Encounter Summary ---
Demographics + + + | Address | [address] | | | [place] [address] | + + + | Home Phone [...] + + | Author | [facility] | | | and [place] | + + + | Organization | [facility] [...] Team Providers + +------+ + | Care Refractory Furnace Designer Name | Role | Phone | [...] | HOSPITAL XRAY [address] | [address] | | | | | [address] [place] | [address] | | | | | [place] | [place] [address] | | | | | [address] | [phone] | | | | | [phone] | | | +--------+ + + + [...]
--- OUTSIDE RECORDS SUMMARY | ~2019-09-01 | XMS | Encounter Summary ---
Demographics + + + | Address | [address] | | | [place] [address] | + + + | Home Phone | | + + + | Preferred Language | Unknown | + + + | Marital Status | | + + + | Mandaeism Affiliation | Unknown | + + + | Race | Unknown | + + + | Ethnic Group | Unknown | + + + Author + + + | Author | [facility] | | | and [place] | + + + | Organization | [facility] | | | and [place] [...] Team Providers + +------+ + | Care Filler Shredder Helper Name | Role | Phone | + +------+ + | Faith Rodríguez NP | PCP | | + +------+ + Reason for Visit + + + | Reason | Comments | + + + | Medication Follow-up | | + + + Encounter Details +--------+---------+ + + + | Date | Type | Department | Care Team | Description | +--------+---------+ + + + | 08/09/ | Office | [place] | Myrna Walker, | Weight loss; Thrush, | | 2017 | Visit | [facility] | BOX OFFICE MANAGER [address] | oral; | | | | PRIMARY CARE [address] | [place] [address] | Gastroesophageal | | | | [facility], | [phone] | reflux disease, | | | | [place] [address] | | esophagitis presence | | | | [phone] | | not specified; | | | | | | Essential | | | | | | hypertension; | | | | | | Chronic obstructive | | | | | | pulmonary disease, | | | | | | unspecified COPD | | | | | | type (HCC); Pain | | | | | | medication agreement | | | | | | signed | +--------+---------+ + + + Social History [...] documented as of this encounter Progress Notes Myrna Walker FNP - 08/09/2018 2:15 PM PDTFormatting of this note might be different fro m the original. Assessment & Plan: 1. Weight loss - Ensure Plus HN; Take 1 Can by mouth 2 times daily. Dispense: 60 Can; Refill: 11 2. Thrush, oral - Nystatin; Swish and swallow 5 ml four times daily up to 48 hours after symptoms resol ve Indications: Candidiasis Fungal Infection of the Oropharynx Dispense: 473 mL; Refill: 0 3. Gastroesophageal reflux disease, esophagitis presence not specified - Omeprazole; Take 1 capsule by mouth 2 times daily. Dispense: 180 capsule; Refill: 0 4. Essential hypertension - Prazosin HCl; Take 1 capsule by mouth 2 times daily. Dispense: 60 capsule; Refill: 1 1 5. Chronic obstructive pulmonary disease, unspecified COPD type (HCC) - Tiotropium [place]-Olodaterol; Inhale 2 puffs into the lungs Daily. Dispense: 1 Inha ler; Refill: 2 6. Pain medication agreement signed Assessment & Plan: Patient on pain contract with provider that has recently left the practice. Taking 4-6 Nor co daily. Patient wishes to continue pain regimen for her would like to increase [place] from 4-6 daily to better control pain. Will have patient follow-up with Javier Palmer for furt her pain management with further changes to pain medications directed by him. Other orders - Influenza PF 3Yrs or >,Quad PSKT or Vial - TraZODone HCl; Take 1 tablet by mouth nightly. Take 2 tablets at night Dispense: 90 tablet; Refill: 0 - Lisinopril; Take 1 tablet by mouth Daily. Dispense: 90 tablet; Refill: 3 - Gabapentin; Take 3 capsules by mouth 3 times daily. Dispense: 810 capsule; Refill: 0 - Fluocinonide; Apply topically Daily. Dispense: 90 Application; Refill: 3 - Cyclobenzaprine HCl; Take 1 tablet by mouth 3 times daily as needed for Muscle spasms . Dispense: 270 tablet; Refill: 0 - Clopidogrel Bisulfate; Take 1 tablet by mouth Daily. Dispense: 90 tablet; Refill: 3 - Carvedilol; Take 1 tablet by mouth 2 times daily (with breakfast & dinner). Dispense : 180 tablet; Refill: 3 - Calcium Carb-Cholecalciferol; Take 2 tablets by mouth Daily. Dispense: 180 tablet; R efill: 3 - Vitamin B Complex; Take 1 tablet by mouth Daily. Dispense: 90 each; Refill: 3 - Albuterol Sulfate HFA; Inhale 2 puffs into the lungs every 4 hours as needed for Whee zing or Shortness of Breath for up to 90 days. Dispense: 18 g; Refill: 3 - Pneumococcal polysaccharide vaccine 23-valent greater than or equal to 2yo subcutaneo us/IM Subjective: Chief Complaint Patient presents with Medication Follow-up Patient ID: Saturnino Avila is a 73 y.o. male. Saturnino is a 73-year-old female who presents to the clinic today for refills of routine medic ations. He was previously followed by Faith Rodríguez, nurse practitioner who has recently left the clinic. Patient has complicated medical history and is taking extensive amount of daily medications. He reports he feels all his medications are working well and does not re port any side effects or reactions. He does have a history of COPD however he does continue to smoke cigarettes and has no desire to quit. He does state he is not having complete pain control with the current medication that the p revious provider placed him on of hydrocodone/acetaminophen 5/325 4 times a day. He states he is having to take up to 6 tablets daily. He would like to discuss increasing his dose or been prescribed a stronger pain medication. He states he has been on this medication for ( years) for chronic back pain and DJD. Patient's medications, allergies, past medical, surgical, social and family histories were obtained and reviewed as appropriate. Allergies Allergen Reactions Aspirin Nausea Only and Swelling Bee Venom Anaphylaxis Uncoded Nonscreenable Allergen [place], patient states he gets red spots and they burn and get itchy. Codeine Nausea And Vomiting Outpatient Encounter Prescriptions as of 08/09/2018 Medication Sig Dispense Refill albuterol (PROVENTIL HFA) 90 mcg/puff inhaler Inhale 2 puffs into the lungs every 4 jonnie rs as needed for Wheezing or Shortness of Breath for up to 90 days. 18 g 3 [DISCONTINUED] albuterol (PROVENTIL HFA) 90 mcg/puff inhaler Inhale 2 puffs into the ignacia ngs every 4 hours as needed for Wheezing or Shortness of Breath. B Complex Vitamins (VITAMIN B COMPLEX) tablet Take 1 tablet by mouth Daily. 90 each 3 [DISCONTINUED] B Complex Vitamins (VITAMIN B COMPLEX) tablet Take 1 tablet by mouth Kevin ly. Calcium Carb-Cholecalciferol (CALCIUM 500 +D) 500-400 MG-UNIT TABS Take 2 tablets by mo uth Daily. 180 tablet 3 [DISCONTINUED] Calcium Carb-Cholecalciferol (CALCIUM 500 +D) 500-400 MG-UNIT TABS Take 2 tablets by mouth Daily. 180 tablet 3 capsaicin (ZOSTRIX) 0.025% cream Apply topically Daily. carvedilol (COREG) 6.25 mg tablet Take 1 tablet by mouth 2 times daily (with breakfast & dinner). 180 tablet 3 [DISCONTINUED] carvedilol (COREG) 6.25 mg tablet Take 1 tablet by mouth 2 times daily ( with breakfast & dinner). 180 tablet 3 clopidogrel (PLAVIX) 75 mg tablet Take 1 tablet by mouth Daily. 90 tablet 3 [DISCONTINUED] clopidogrel (PLAVIX) 75 mg tablet Take 1 tablet by mouth Daily. 90 table t 3 cyclobenzaprine (FLEXERIL) 10 mg tablet Take 1 tablet by mouth 3 times daily as needed for Muscle spasms. 270 tablet 0 [DISCONTINUED] cyclobenzaprine (FLEXERIL) 10 mg tablet Take 1 tablet by mouth 3 times d aily as needed for Muscle spasms. 270 tablet 0 EPINEPHrine auto-injector (EPIPEN 2-TERRI) 0.3 mg/0.3 mL injection Inject 0.3 mg into the muscle as needed for Anaphylaxis. fluocinonide (LIDEX) 0.05% cream Apply topically Daily. 90 Application 3 [DISCONTINUED] fluocinonide (LIDEX) 0.05% cream Apply topically Daily. gabapentin (NEURONTIN) 300 mg capsule Take 3 capsules by mouth 3 times daily. 810 capsu le 0 [DISCONTINUED] gabapentin (NEURONTIN) 300 mg capsule Take 3 capsules by mouth 3 times d aily. 810 capsule 0 lisinopril (PRINIVIL,ZESTRIL) 40 MG tablet Take 1 tablet by mouth Daily. 90 tablet 3 [DISCONTINUED] lisinopril (PRINIVIL,ZESTRIL) 40 MG tablet Take 40 mg by mouth Daily. nitroglycerin (NITROSTAT) 0.[address] 1 tablet under the tongue every 5 stacy sade as needed for Chest pain. 25 tablet 1 Nutritional Supplements (ENSURE PLUS HN) LIQD Take 1 Can by mouth 2 times daily. 60 Can 11 [DISCONTINUED] Nutritional Supplements (ENSURE PLUS HN) LIQD Take 1 Can by mouth 2 time s daily. 60 Can 11 nystatin (MYCOSTATIN) 100,000 units/mL suspension Swish and swallow 5 ml four times kevin ly up to 48 hours after symptoms resolve Indications: Candidiasis Fungal Infection of the O ropharynx 473 mL 0 [DISCONTINUED] nystatin (MYCOSTATIN) 100,000 units/mL suspension Swish and swallow 5 ml four times daily up to 48 hours after symptoms resolve Indications: Candidiasis Fungal Inf ection of the Oropharynx (Patient not taking: Reported on 08/09/2018) 473 mL 0 omeprazole (PRILOSEC) 20 mg capsule Take 1 capsule by mouth 2 times daily. 180 capsule 0 [DISCONTINUED] omeprazole (PRILOSEC) 20 mg capsule Take 1 capsule by mouth 2 times brian y. 180 capsule 0 prazosin (MINIPRESS) 2 MG capsule Take 1 capsule by mouth 2 times daily. 60 capsule 11 [DISCONTINUED] prazosin (MINIPRESS) 2 MG capsule Take 1 capsule by mouth 2 times daily. 60 capsule 11 simvastatin (ZOCOR) 80 mg tablet Take 80 mg by mouth nightly. tiotropium-olodaterol (STIOLTO RESPIMAT) 2.5-2.5 mcg/puff inhaler Inhale 2 puffs into t he lungs Daily. 1 Inhaler 2 [DISCONTINUED] tiotropium-olodaterol (STIOLTO RESPIMAT) 2.5-2.5 mcg/puff inhaler Inhale 2 puffs into the lungs Daily. 1 Inhaler 2 traZODone (DESYREL) 100 mg tablet Take 1 tablet by mouth nightly. Take 2 tablets at nig ht 90 tablet 0 [DISCONTINUED] traZODone (DESYREL) 100 mg tablet Take 1 tablet by mouth nightly. Take 2 tablets at night 30 tablet No facility-administered encounter medications on file as of 08/09/2018. Patient Active Problem List Diagnosis AAA (abdominal aortic aneurysm) Acid reflux disease Joyce's esophagus Benign thyroid cyst Chronic low back pain COPD (chronic obstructive pulmonary disease) Hypertension Hyperlipidemia Osteoporosis Hx of colonic polyps Pulmonary nodules Pain medication agreement signed Dermatitis Insomnia Ventral hernia without obstruction or gangrene Dysphagia Hyperplasia of prostate Past Medical History: Diagnosis Date AAA (abdominal [...] Location: [facility] UPPER GASTROINTESTINAL ENDOSCOPY family history includes Hypertension in his mother; Lung cancer in his father and mother. reports that he has been smoking Cigarettes. He started smoking about 63 years ago. He hig[place] s a 62.00 pack-year smoking history. He has never used smokeless tobacco. He reports that he drinks alcohol. He reports that he does not use drugs. Review of Systems Constitutional: Negative for activity change. HENT: Positive for dental problem. Respiratory: Positive for cough. Negative for shortness of breath (baseline r/t COPD). Cardiovascular: Negative for chest pain. Gastrointestinal: Negative for abdominal pain. Musculoskeletal: Positive for arthralgias (chronic) and back pain (chronic). Neurological: Negative for headaches. Psychiatric/Behavioral: Negative for sleep disturbance (with sleep aid). Objective: There were no vitals taken for this visit. Physical Exam Constitutional: He is oriented to person, place, and time. Vital signs are normal. He appea rs well-developed. Underweight HENT: Head: Normocephalic and atraumatic. Poor dentition Eyes: Pupils are equal, round, and reactive to light. Neck: Normal range of motion. Neck supple. Cardiovascular: Normal rate and regular rhythm. No JVD Pulmonary/Chest: Effort normal. He has decreased breath sounds (Decreased throughout). Abdominal: Soft. Normal appearance and bowel sounds are normal. A hernia is present. Hernia confirmed positive in the ventral area. Ventral hernia is soft and reducible Musculoskeletal: Normal range of motion. Neurological: He is alert and oriented to person, place, and time. Skin: Skin is warm and dry. Nails stained yellow s/p nicotine use Psychiatric: He has a normal mood and affect. His behavior is normal. Nursing note and vitals reviewed. Electronically signed by: EPI Gutierrez, 08/10/2018 13:52 This note was transcribed using voice recognition software; there may be speech recognition errors which escaped detection during review. uc, Yohana Haro RN - 08/09/2018 2:15 PM PDTFlu vaccine given in left arm. Tolerated well. Gave Pneumo in right arm. Tolerated well Yohana Glass RN documented in this enco unter Plan of Treatment Not on filedocumented as of this encounter Visit Diagnoses + + | Diagnosis | + + | Weight loss Loss of weight | + + | Thrush, oral Candidiasis of mouth | + + | Gastroesophageal reflux disease, esophagitis presence not specified | + + | Essential hypertension Unspecified essential hypertension | + + | Chronic obstructive pulmonary disease, unspecified COPD type (HCC) | + + | Pain medication agreement signed Encounter for long-term (current) use of other | | medications | + + documented in this encounter"
--- OUTSIDE RECORDS SUMMARY | ~2019-09-01 | XMS | Encounter Summary ---
Demographics + + + | Address | [address] | | | [place] [address] | + + + | Home Phone | | + + + | Preferred Language | Unknown | + + + | Marital Status | | + + + | Denominational Affiliation | Unknown | + + + | Race | Unknown | + + + | Ethnic Group | Unknown | + + + Author + + + | Author | [facility] | | | and [place] | + + + | Organization | [facility] | | [...] Team Providers + +------+ + | Care Workday Senior Associate Name | Role | Phone | + +------+ + | Faith Rodríguez NP | PCP | | + +------+ + Reason for Visit +--------+ + | Reason | Comments | +--------+ + | Other | | +--------+ + Encounter Details +--------+ + + + + | Date | Type | Department | Care Team | Description | +--------+ + + + + | 11/13/ | Telephone | [place] [facility] | Faith Rodríguez | Other | | 2018 | | [facility] | D, GENERAL PASSENGER AGENT ONE | | | | | PRIMARY CARE [address] | [facility] | | | | | [facility], | [place] [address] | | | | | [place] [address] | [phone] | | | | | [phone] | | | +--------+ + + + [...]
--- OUTSIDE RECORDS SUMMARY | ~2019-09-01 | XMS | Encounter Summary ---
Demographics + + + | Address | [address] | | | [place] [address] | + + + | Home Phone [...] | Author | [facility] | | | and [place] | + + + | Organization | [facility] | | | and [place] [...] Team Providers + +------+ + | Care Hospitalist Medical Director Name | Role | Phone | + [...] Procedures | PA[address]C [address] | [place] [address] | | | | | CT Chest wo | [address] | Phone: | | | | | [address] | [place], [place] | [phone] | | | | | Chest | [address] | Fax: | | | | | Abdomen wo | Phone: | [phone] | | | | | Contrast | [phone] | | | | | | | Fax: | | | | | | | [phone] | | +--------+--------+ + + + + [...] PRIMARY CARE [address] | [address] [place], | | | | | [place], | [place] [address] | | | | | [place] [address] | [phone] | | | | | [phone] | | | +--------+ + + + [...]
--- OUTSIDE RECORDS SUMMARY | ~2019-09-01 | XMS | Encounter Summary ---
Demographics + + + | Address | [address] | | | [place] [address] | + + + | Home Phone | | + + + | Preferred Language | Unknown | + + + | Marital Status | | + + + | Mandaen Affiliation | Unknown | + + + | Race | Unknown | + + + | Ethnic Group | Unknown | + + + Author + + + | Author | [facility] | | | and [place] | + + + | Organization | [facility] | | | and [place] | [...] Team Providers + +------+ + | Care Community Aide Name | Role | Phone | + +------+ + PCP | Unavailable | + +------+ + Encounter Details +--------+ + + + + | Date | Type | Department | Care Team | Description | +--------+ + + + + | 06/29/ | [facility] | [place] [facility] | Faith Rodríguez | | | 2017 | Encounter | [facility] | D, BIOINFORMATICIAN ONE | | | | | PRIMARY CARE [address] | [facility] | | | | | [facility], | [place] [address] | | | | | [place] [address] | [phone] | | | | | [phone] | | | +--------+ + + + [...]
--- OUTSIDE RECORDS SUMMARY | ~2019-09-01 | XMS | Encounter Summary ---
Demographics + + + | Address | [address] | | | [place] [address] | + + + | Home Phone | | + + + | Preferred Language | Unknown | + + + | Marital Status | | + + + | Cheondoism Affiliation | Unknown | + + + | Race | Unknown | + + + | Ethnic Group | Unknown | + + + Author + + + | Author | [facility] | | | and [place] | + + + | Organization | [facility] | | | and [...] Team Providers + +------+ + | Care Infusion Nurse Name | Role | Phone | + +------+ + PCP | Unavailable | + +------+ + Encounter Details +--------+ + + + + | Date | Type | Department | Care Team | Description | +--------+ + + + + | 03/22/ | [facility] | [place] [facility] | [place] | | | 2017 | Encounter | [facility] | DO [address] | | | | | SURGERY [address] | [address] | | | | | [address], | [place], [place] | | | | | [place] [address] | [address] | | | | | [phone] | [phone] | | | | | | | [...]
--- OUTSIDE RECORDS SUMMARY | ~2019-09-01 | XMS | Encounter Summary ---
Demographics + + + | Address | [address] | | | [place] [address] | + + + | Home Phone | | + + + | Preferred Language | Unknown | + + + | Marital Status | | + + + | Jewish Affiliation | Unknown | + + + | Race | Unknown | + + + | Ethnic Group | Unknown | + + + Author + + + | Author | [facility] | | | and [place] | + + + | Organization | [facility] | | | and [place] [...] Team Providers + +------+ + | Care Pitch Worker Name | Role | Phone | + [...] Thrush, | | 2017 | Visit | [facility] | UNIVERSITY ARCHIVIST [address] | oral; | | | | PRIMARY CARE [address] | [place] [address] | Gastroesophageal | | | | [facility], | [phone] | reflux disease, | | | | [place] [address] | | esophagitis presence | | | | [phone] | | not specified; | | | [...] disease, unspecified COPD type (HCC) - Tiotropium [place]-Olodaterol; Inhale 2 puffs into the lungs Daily. Dispense: 1 Inha ler; Refill: 2 6. Pain medication agreement signed Assessment & Plan: Patient on pain contract with provider that has recently left the practice. Taking 4-6 Nor co daily. Patient wishes to continue pain regimen for her would like to increase [place] from 4-6 daily to better control pain. [...] Swelling Bee Venom Anaphylaxis Uncoded Nonscreenable Allergen [place], patient states he gets red spots and [...]
--- OUTSIDE RECORDS SUMMARY | ~2019-09-01 | XMS | Encounter Summary ---
Demographics + + + | Address | [address] | | | [place] [address] | + + + | Home Phone | | + + + | Preferred Language | Unknown | + + + | Marital Status | | + + + | Islam Affiliation | Unknown | + + + | Race | Unknown | + + + | Ethnic Group | Unknown | + + + Author + + + | Author | [facility] | | | and [place] | + + + | Organization | [facility] | | | and [place] [...] Team Providers + +------+ + | Care Billboard Erector Helper Name | Role | Phone | [...] Description | +--------+--------+ + + + | 11/29/ | Refill | [place] [facility] | Aric Palmer | Medication Refill | | 2019 | | [facility] | [address]TY [address] | | | | | PRIMARY CARE [address] | [facility] [place], | | | | | [facility], [place], | [place] [address] | | | | | [place] [address] | [phone] | | | | | [phone] | | | +--------+--------+ + + + [...]
--- OUTSIDE RECORDS SUMMARY | ~2019-09-01 | XMS | Encounter Summary ---
Demographics + + + | Address | [address] | | | [place] [address] | + + + | Home Phone | | + + + | Preferred Language | Unknown | + + + | Marital Status | | + + + | Adventist Affiliation | Unknown | + + + | Race | Unknown | + + + | Ethnic Group | Unknown | + + + Author + + + | Author | [facility] | | | and [place] | + + + | Organization | [facility] | | [...] Team Providers + +------+ + | Care Dye Can Operator Name | Role | Phone | + +------+ + | Faith Rodríguez [facility] | PCP | | + +------+ + Reason for Referral Diagnostic/Screening (Routine) +--------+--------+ + + + + | Status | Reason | Specialty | Diagnoses / | Referred By | Referred To | | | | | Procedures | Contact | Contact | +--------+--------+ + + + + | Closed | | | Diagnoses | Myke | [facility] | | | | | Old | Jcarlos | [facility] | | | | | anteroseptal | MD Nitin | IM[address] | | | | | myocardial | [address] | [place] | | | | | infarction | [place] | [place] | | | | | Procedures | [place], | [address] | | | | | ECHO | [place] [address] | Phone: | | | | | Complete [place] | Phone: | [phone] | | | | | ECHO HEART | [phone] | Fax: | | | | | [place] | Fax: | [phone] | | | | | MPLETE W | [phone] | | | | | | DOPPLER [place] | | | | | | | ECHO HEART | | | | | | | XTHORACIC,[place] | | | | | | | MPLETE, W/O | | | | | | | DOPPLER | | | +--------+--------+ + + + + Diagnostic/Screening (Routine) +--------+--------+ + + + + | Status | Reason | Specialty | Diagnoses / | Referred By | Referred To | | | | | Procedures | Contact | Contact | +--------+--------+ + + + + | Closed | | | Diagnoses | Myke | [facility] | | | | | Pulmonary | Jcarlos | [facility] | | | | | nodules | MD Nitin | [address] | | | | | Tobacco | [address] | | | | | dependence | [place] | [place], [place] | | | | | Procedures | [place], | [address] | | | | | PET CT Skull | [place] [address] | Phone: | | | | | Base To Mid | Phone: | [phone] | | | | | Thigh | [phone] | Fax: | | | | | | Fax: | [phone] | | | | | | [phone] | | +--------+--------+ + + + + Reason for Visit + + + | Reason | Comments | + + + | COPD | Consult | + + + | Nodule (Multiple) | | + + + Evaluate & Treat (Routine) +--------+--------+ + + + + | Status | Reason | Specialty | Diagnoses / | Referred By | Referred To | | | | | Procedures | Contact | Contact | +--------+--------+ + + + + | Closed | | Pulmonology | Diagnoses | Anne, | Myke | | | | | Chronic | Faith Palmer | Jcarlos | | | | | obstructive | [facility] | MD Nitin | | | | | pulmonary | [place] | [address] [place] [address] | | | | | disease, | [address] [place] | [place] | | | | | unspecified | [place], [place] | [place], [place] | | | | | (HCC) Other | [address] | [address] Phone: | | | | | disorders | Phone: | [phone] | | | | | of lung | [phone] | Fax: | | | | | Procedures | Fax: | [phone] | | | | | OUT PT VISIT | [phone] | | | | | | NEW 1 VISIT | | | | | | | OUT PT | | | | | | | VISIT EST | | | | | | | 4 VISIT | | | +--------+--------+ + + + + Encounter Details +--------+---------+ + + + | Date | Type | Department | Care Team | Description | +--------+---------+ + + + | 09/19/ | Office | [facility] | Jcarlos Stringer | Pulmonary nodules | | 2017 | Visit | PULMONARY [address] | MD Nitin [address] | (Primary Dx); | | | | [place], | [place] | Centrilobular | | | | [place] [address] | [place] [address] | emphysema (HCC); | | | | [phone] | [phone] | Chronic obstructive | | | | | | asthma without | | | | | | status asthmaticus | | | | | | (HCC); Ventral | | | | | | hernia without | | | | | | obstruction or | | | | | | gangrene; Tobacco | | | | | | dependence; Old | | | | | | anteroseptal | | | | | | myocardial | | | | | | infarction | +--------+---------+ + + + Social History [...] Cessation: Ready to Quit: No; Counseling Given: No | + + + + +---------+ + [...] + + + | Blood Pressure | 112/74 | 09/19/2017 9:28 AM | | | | | PST | | + + + + + | Pulse | 96 | 09/19/2017 9:28 AM | | | | | PST | | + + + + + | Temperature | 36.8 C (98.2 F) | 09/19/2017 9:28 AM | | | | | PST | | + + + + + | Respiratory Rate | - | - | | + + + + + | Oxygen Saturation | 92% | 09/19/2017 9:28 AM | | | | | PST | | + + + + + | Inhaled Oxygen | - | - | | | Concentration | | | | + + + + + | Weight | 66.1 kg (145 lb 11.6 | 09/19/2017 9:28 AM | | | | oz) | PST | | + + + + + | Height | 175.3 cm (5' 9") | 09/19/2017 9:28 AM | | | | | PST | | + + + + + | Body Mass Index | 21.52 | 09/19/2017 9:28 AM | | | | | PST | | + + + + + documented in this encounter Plan of Treatment + + +--------+ + + | Name | Type | Priori | Associated Diagnoses | Order Schedule | | | | ty | | | + + +--------+ + + | ECHO Complete | Echocardiog | Routin | Old anteroseptal | Expected: | | | kathrine | e | myocardial | 09/26/2017, Expires: | | | | | infarction | 09/19/2018 | + + +--------+ + + documented as of this encounter Results PET CT Skull Base To Mid Thigh (10/09/2017 11:28 AM PST) + + | Specimen | + + | | + + + + + | Impressions | Performed At | + + + | IMPRESSION: 1. The previously noted right lung lesion is a | [facility] | | metabolic. No PET CT findings suspicious for malignancy. 2. Severe | | | emphysematous changes. Recommend 1 year follow-up CT thorax to | | | re-evaluate the lung lesion. 3. Asymmetric hypermetabolic activity at | | | the cecum which may relate to asymmetric but otherwise unremarkable | | | distribution of radiopharmaceutical within the gastrointestinal tract. | | | Inflammatory process or neoplasm is not excluded. Colonoscopy is | | | recommended. 4. Atherosclerosis coronary arteries. 5. Fusiform | | | aortic aneurysm. 1 year follow-up ultrasound aorta recommended. 6. | | | Hypermetabolic focus in the region of the right pterygoid muscle. | | | Finding may relate to muscle activity. A neoplasm is not strictly | | | excluded. CT or MRI of the soft tissue neck recommended. 7. Disc | | | and facet degenerative changes lumbar spine. Dictated by: Satya Quintero | | | PM | | + + + + + + | Narrative | Performed At | + + + | EXAMINATION: PET CT SKULL BASE TO MID THIGH HISTORY: Smoker | [facility] | | with spiculated 9 mm nodule RUL near minor fissure, stable on 2 CT | | | scans 3 mos apart. Too tiny for bronchoscopy probably. High SUV? | | | Metastases? COMPARISON STUDY: CT thorax 07/31/2017. CT thorax | | | 04/28/2017. TECHNIQUE: 13.44mCi F18 FDG is injected with fasting | | | blood sugar of 93mg/dl followed by PET/CT images from skull base | | | through the mid thigh. FINDINGS: HEAD/NECK: Normal physiologic | | | activity demonstrated intracranially. Normal low-level physiologic | | | activity noted cervical chain region. At the right pterygoid | | | muscle approximate 13 mm region of hypermetabolic activity noted with | | | maximal SUV of 4.3.. CHEST: Severe emphysematous changes are | | | demonstrated. Plaque-like density is redemonstrated at the right | | | thorax seen on axial image 167 with maximal length of approximately 10 | | | mm. The finding is a metabolic. No hypermetabolic activity seen | | | within the lungs or mediastinum. Atherosclerosis of the coronary | | | arteries is present. ABD/PELVIS: Asymmetric activity noted at the | | | cecum without distinct mass lesion identified. Abdominal aortic | | | aneurysm noted with maximal diameter of 3.3 cm. This finding is | | | present at the level of the renal arteries. At the distal aorta | | | findings suggestive of aortic repair Unchanged.. SKELETON: No | | | lytic or blastic bone lesions are seen. Disc and facet degenerative | | | changes are present lumbar spine. No hypermetabolic bone lesions | | | identified.. | | + + + + + | Procedure Note | + + | Ishaan, Rad Results In - 10/10/2017 1:04 PM PST EXAMINATION:PET CT SKULL BASE TO MID | | THIGHHISTORY:Smoker with spiculated 9 mm nodule RUL near minor fissure, stable on 2 CT | | scans 3 mos apart. Too tiny for bronchoscopy probably. High SUV? Metastases?COMPARISON | | STUDY:CT thorax 07/31/2017. CT thorax 04/28/2017.TECHNIQUE:13.44mCi F18 FDG is injected | | with fasting blood sugar of 93mg/dl followed by PET/CT images from skull base through | | the mid thigh.FINDINGS:HEAD/NECK: Normal physiologic activity demonstrated | | intracranially. Normal low-level physiologic activity noted cervical chain region.At | | the right pterygoid muscle approximate 13 mm region of hypermetabolic activity noted | | with maximal SUV of 4.3..CHEST: Severe emphysematous changes are demonstrated. | | Plaque-like density is redemonstrated at the right thorax seen on axial image 167 with | | maximal length of approximately 10 mm. The finding is a metabolic. No hypermetabolic | | activity seen within the lungs or mediastinum. Atherosclerosis of the coronary arteries | | is present.ABD/PELVIS: Asymmetric activity noted at the cecum without distinct mass | | lesion identified.Abdominal aortic aneurysm noted with maximal diameter of 3.3 cm. This | | finding is present at the level of the renal arteries. At the distal aorta findings | | suggestive of aortic repairUnchanged..SKELETON: No lytic or blastic bone lesions are | | seen. Disc and facet degenerative changes are present lumbar spine. No hypermetabolic | | bone lesions identified..IMPRESSION: IMPRESSION:1. The previously noted right lung | | lesion is a metabolic. No PET CT findings suspicious for malignancy.2. Severe | | emphysematous changes. Recommend 1 year follow-up CT thorax to re-evaluate the lung | | lesion.3. Asymmetric hypermetabolic activity at the cecum which may relate to asymmetric | | but otherwise unremarkable distribution of radiopharmaceutical within the | | gastrointestinal tract. Inflammatory process or neoplasm is not excluded. Colonoscopy | | is recommended.4. Atherosclerosis coronary arteries.5. Fusiform aortic aneurysm. 1 year | | follow-up ultrasound aorta recommended.6. Hypermetabolic focus in the region of the | | right pterygoid muscle. Finding may relate to muscle activity. A neoplasm is not | | strictly excluded. CT or MRI of the soft tissue neck recommended.7. Disc and facet | | degenerative changes lumbar spine.Dictated by: Satya Quintero | |IMPRESSION: | |IMPRESSION: | |1. The previously noted right lung lesion is a metabolic. No PET CT findings suspicious fo r malignancy. | |2. Severe emphysematous changes. Recommend 1 year follow-up CT thorax to re-evaluate the l maricruz lesion. | |3. Asymmetric hypermetabolic activity at the cecum which may relate to asymmetric but other lee unremarkable distribution of radiopharmaceutical within the gastrointestinal tract. In flammatory process or neoplasm is not excluded. Colonoscopy is | |recommended. | |4. Atherosclerosis coronary arteries. | |5. Fusiform aortic aneurysm. 1 year follow-up ultrasound aorta recommended. | |6. Hypermetabolic focus in the region of the right pterygoid muscle. Finding may relate to muscle activity. A neoplasm is not strictly excluded. CT or MRI of the soft tissue neck r ecommended. | |7. Disc and facet degenerative changes lumbar spine. 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
--- OUTSIDE RECORDS SUMMARY | ~2019-09-01 | XMS | Encounter Summary ---
Demographics + + + | Address | [address] | | | [place] [address] | + + + | Home Phone [...] + + + | Author | [facility] | | | and [place] | + + + | Organization | [facility] | | | and [...] Team Providers + +------+ + | Care Chief Writer Name | Role | Phone | + +------+ + | Faith Rodríguez NP | PCP | | + +------+ + Reason for Visit +--------+ + | Reason | Comments | +--------+ + | Other | | +--------+ + Encounter Details +--------+ + + + + | Date | Type | Department | Care Team | Description | +--------+ + + + + | 10/11/ | Telephone | [place] | Faith Rodríguez | Other | | 2017 | | [facility] | D, [address] | | | | | PRIMARY CARE [address] | [facility] | | | | | [facility], | [place] [address] | | | | | [place] [address] | [phone] | | | | | [phone] | | | +--------+ + + + [...]
--- OUTSIDE RECORDS SUMMARY | ~2019-09-01 | XMS | Encounter Summary ---
Demographics + + + | Address | [address] | | | [place] [address] | + + + | Home Phone | | + + + | Preferred Language | Unknown | + + + | Marital Status | | + + + | Quaker Affiliation | Unknown | + + + | Race | Unknown | + + + | Ethnic Group | Unknown | + + + Author + + + | Author | [facility] | | | and [place] | + + + | Organization | [facility] | | | and [...] Team Providers + +------+ + | Care Felling Machine Operator Name | Role | Phone | + +------+ + | Aric Palmer | PCP | | | LETTY | | | + +------+ + Reason for Visit + + + | Reason | Comments | + + + | Provide Resources | [facility] 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
--- OUTSIDE RECORDS SUMMARY | ~2019-09-01 | XMS | Encounter Summary ---
Demographics + + + | Address | [address] | | | [place] [address] | + + + | Home Phone [...] Author | [facility] | | | and [place] | + + + | Organization | [facility] | | | and [place] [...] Team Providers + +------+ + | Care Laborer Rags Name | Role | Phone | + +------+ + PCP | Unavailable | + +------+ + Encounter Details +--------+ + + + + | Date | Type | Department | Care Team | Description | +--------+ + + + + | 07/08/ | Hospital | [place] [facility] | Jacklyn [place] | | | 2014 | Encounter | H[facility]PITAL XRAY [address] | MD [address] | | | | | [address] | [address] | | | | | [place] | [place] [address] | | | | | [address] | [phone] | | | | | [phone] | | | +--------+ + + + [...] | + +--------+ + + + | US RETROPERITONEAL | Routin | 07/08/2015 | | Results for this | | LIMITED | e | 7:15 AM | | procedure are in the | | | | PDT | | results section. | + +--------+ + + + documented in this encounter Results US Retroperitoneal Limited (07/08/2015 7:15 AM PDT) + + | Specimen | + + | | + + + + + | Narrative | Performed At | + + + | ORIGINAL AORTIC ULTRASOUND HISTORY: Abdominal | | | aortic aneurysm. COMPARISON STUDY: March 16, 2012; January 25, 2011. | | | FINDINGS: Proximal aorta measures 3.3 x 3.1 cm. The mid aorta | | | measures 3.0 x 3.8 cm. This 3.8-cm aneurysmal dilatation is similar to | | | the CT scan from January 25, 2011. The distal aorta has postsurgical | | | change. The distal aorta is patent, as are the iliac arteries. | | | IMPRESSION: Stable aneurysmal dilatation of the mid aorta. Stable | | | appearance of distal aorta status post surgical intervention. D: | | | 07/08/2015 Job No.: [id number] Read By: DORYS HAMM MD | | | Released By: DORYS HAMM MD Date: 07/09/2015 13:10 | | + + + + + | Procedure Note | + + | Ishaan, Rad Results In - 08/30/2017 8:21 PM PST ORIGINAL AORTIC ULTRASOUND | | HISTORY:Abdominal aortic aneurysm. COMPARISON STUDY:March 16, 2012; January 25, 2011. | | FINDINGS:Proximal aorta measures 3.3 x 3.1 cm. The mid aorta measures 3.0 x 3.8 cm. This | | 3.8-cm aneurysmal dilatation is similar to the CT scan from January 25, 2011. The distal | | aorta has postsurgical change. The distal aorta is patent, as are the iliac arteries. | | IMPRESSION:Stable aneurysmal dilatation of the mid aorta. Stable appearance of distal | | aorta status post surgical intervention. Job No.: [id number] Read By: DORYS | | Yoni HAMM MD Released By: DONA BARONate: 07/09/2015 13:10 | |COMPARISON STUDY: | |March 16, 2012; January 25, 2011. | | | |FINDINGS: | |Proximal aorta measures 3.3 x 3.1 cm. The mid aorta measures 3.0 x 3.8 cm. This 3.8-cm aneu rysmal dilatation is similar to the CT scan from January 25, 2011. The distal aorta has postsur gical change. The distal aorta is patent, as are the iliac arteries. | | | |IMPRESSION: | |Stable aneurysmal dilatation of the mid aorta. Stable appearance of distal aorta status pos t surgical intervention. | | | | | |Job No.: [id number] | | | |Read By: DORYS HAMM MD | | | |Released By: DORYS HAMM MD | |Date: 07/09/2015 13:10 | | | | | + + documented in this encounter Visit Diagnoses Not on filedocumented in this encounter"
--- OUTSIDE RECORDS SUMMARY | ~2019-09-01 | XMS | Encounter Summary ---
Demographics + + + | Address | [address] | | | [place] [address] | + + + | Home Phone | | + + + | Preferred Language | Unknown | + + + | Marital Status | | + + + | Rastafari Affiliation | Unknown | + + + | Race | Unknown | + + + | Ethnic Group | Unknown | + + + Author + + + | Author | [facility] | | | and [place] | + + + | Organization | [facility] | | | and [place] [...] Team Providers + +------+ + | Care Continuous Mining Machine Coal Miner Name | Role | Phone | + +------+ + | Faith Rodríguez NP | PCP | | + +------+ + Reason for Visit +---------+ + | Reason | Comments | +---------+ + | Results | | +---------+ + Encounter Details +--------+ + + + + | Date | Type | Department | Care Team | Description | +--------+ + + + + | 11/29/ | Telephone | [place] [facility] | Faith Rodríguez | Results | | 2018 | | [facility] | D, ROLL UP MACHINE OPERATOR ONE | | | | | PRIMARY CARE [address] | [facility] | | | | | [facility], | [place], [place] [address] | | | | | [place] [address] | [phone] | | | | | [phone] | | | +--------+ + + + [...]
--- OUTSIDE RECORDS SUMMARY | ~2019-09-01 | XMS | Encounter Summary ---
Demographics + + + | Address | [address] | | | [place] [address] | + + + | Home Phone [...] | Author | [facility] | | | and [place] | + + + | Organization | [facility] | | | and [place] [...] Team Providers + +------+ + | Care Government Teacher Name | Role | Phone | + +------+ + | Faith Rodríguez NP | PCP | | + +------+ + Encounter Details +--------+ + + + + | Date | Type | Department | Care Team | Description | +--------+ + + + + | 08/08/ | Abstract | [facility] | Deangelo Little | | | 2017 | | CARDIOLOGY [address] | MD Brendan [address] | | | | | [place], | [address] [address] [place] | | | | | [place] [address] | [place] [address] | | | | | [phone] | [phone] | | | | | | | [...] | + +--------+ + + + | EXTERNAL LAB: | Routin | 06/21/2017 | | Results for this | | PROTEIN, TOTAL | e | | | procedure are in the | | | | | | results section. | + +--------+ + + + | EXTERNAL LAB: BUN | Routin | 06/13/2017 | | Results for this | | | e | | | procedure are in the | | | | | | results section. | + +--------+ + + + | EXTERNAL LAB: | Routin | 06/13/2017 | | Results for this | | GLUCOSE | e | | | procedure are in the | | | | | | results section. | + +--------+ + + + | EXTERNAL LAB: | Routin | 06/13/2017 | | Results for this | | ALBUMIN | e | | | procedure are in the | | | | | | results section. | + +--------+ + + + | EXTERNAL LAB: | Routin | 06/13/2017 | | Results for this | | PHOSPHORUS | e | | | procedure are in the | | | | | | results section. | + +--------+ + + + | EXTERNAL LAB: | Routin | 06/13/2017 | | Results for this | | CALCIUM | e | | | procedure are in the | | | | | | results section. | + +--------+ + + + | EXTERNAL LAB: CARBON | Routin | 06/13/2017 | | Results for this | | DIOXIDE | e | | | procedure are in the | | | | | | results section. | + +--------+ + + + | EXTERNAL LAB: | Routin | 06/13/2017 | | Results for this | | CHLORIDE | e | | | procedure are in the | | | | | | results section. | + +--------+ + + + | EXTERNAL LAB: | Routin | 06/13/2017 | | Results for this | | POTASSIUM | e | | | procedure are in the | | | | | | results section. | + +--------+ + + + | EXTERNAL LAB: SODIUM | Routin | 06/13/2017 | | Results for this | | | e | | | procedure are in the | | | | | | results section. | + +--------+ + + + | EXTERNAL LAB: CBC | Routin | 06/13/2017 | | Results for this | | | e | | | procedure are in the | | | | | | results section. | + +--------+ + + + | EXTERNAL LAB: | Routin | 06/13/2017 | | Results for this | | PROTIME INR | e | | | procedure are in the | | | | | | results section. | + +--------+ + + + | EXTERNAL LAB: Dioni FRANK | Routin | 06/13/2017 | | Results for this | | NATURETIC PEPTIDE | e | | | procedure are in the | | | | | | results section. | + +--------+ + + + | EXTERNAL LAB: EGFR | Routin | 06/13/2017 | | Results for this | | | e | | | procedure are in the | | | | | | results section. | + +--------+ + + + | EXTERNAL LAB: | Routin | 06/13/2017 | | Results for this | | CREATININE | e | | | procedure are in the | | | | | | results section. | + +--------+ + + + | CBC WITH | Routin | 06/13/2017 | | Results for this | | DIFFERENTIAL | e | | | procedure are in the | | | | | | results section. | + +--------+ + + + | COMPREHENSIVE | Routin | 06/13/2017 | | Results for this | | METABOLIC PANEL | e | | | procedure are in the | | | | | | results section. | + +--------+ + + + documented in this encounter Results External Lab: Protein, Total (06/21/2017) + +-------+ + + + | Component | Value | Ref Range | Performed | Pathologist | | | | | At | Signature | + +-------+ + + + | Protein, | 6.6 | 6.1 - 8.1 | | | | Total, | | | | | | External | | | | | + +-------+ + + + Comprehensive Metabolic Panel (06/13/2017) + +-------+ + + + | Component | Value | Ref Range | Performed | Pathologist | | | | | At | Signature | + +-------+ + + + | Anion Gap | 8 | mmol/L | | | + +-------+ + + + | BUN/Creatin | 22.1 | | | | | ine Ratio | | | | | + +-------+ + + + + + | Specimen | + + | Blood | + + External Lab: BUN (06/13/2017) + +-------+ + + + | Component | Value | Ref Range | Performed | Pathologist | | | | | At | Signature | + +-------+ + + + | BUN, | 21 | | | | | External | | | | | + +-------+ + + + External Lab: Glucose (06/13/2017) + +-------+ + + + | Component | Value | Ref Range | Performed | Pathologist | | | | | At | Signature | + +-------+ + + + | Glucose, | 100 | | | | | External | | | | | + +-------+ + + + External Lab: Albumin (06/13/2017) + +-------+ + + + | Component | Value | Ref Range | Performed | Pathologist | | | | | At | Signature | + +-------+ + + + | Albumin, | 3.8 | | | | | External | | | | | + +-------+ + + + External Lab: Phosphorus (06/13/2017) + +---------+ + + + | Component | Value | Ref Range | Performed | Pathologist | | | | | At | Signature | + +---------+ + + + | Phosphorus, | 2.4 (A) | 2.5 | | | | External | | | | | + +---------+ + + + External Lab: Calcium (06/13/2017) + +-------+ + + + | Component | Value | Ref Range | Performed | Pathologist | | | | | At | Signature | + +-------+ + + + | Calcium, | 9.1 | | | | | External | | | | | + +-------+ + + + External Lab: Carbon Dioxide (06/13/2017) + +-------+ + + + | Component | Value | Ref Range | Performed | Pathologist | | | | | At | Signature | + +-------+ + + + | Carbon | 27 | | | | | Dioxide, | | | | | | External | | | | | + +-------+ + + + External Lab: Chloride (06/13/2017) + +-------+ + + + | Component | Value | Ref Range | Performed | Pathologist | | | | | At | Signature | + +-------+ + + + | Chloride, | 102 | | | | | External | | | | | + +-------+ + + + External Lab: Potassium (06/13/2017) + +-------+ + + + | Component | Value | Ref Range | Performed | Pathologist | | | | | At | Signature | + +-------+ + + + | Potassium, | 3.5 | | | | | External | | | | | + +-------+ + + + External Lab: Sodium (06/13/2017) + +-------+ + + + | Component | Value | Ref Range | Performed | Pathologist | | | | | At | Signature | + +-------+ + + + | Sodium, | 137 | | | | | External | | | | | + +-------+ + + + External Lab: B Type Naturetic Peptide (06/13/2017) + + + + + + | Component | Value | Ref Range | Performed | Pathologist | | | | | At | Signature | + + + + + + | B-Type | 259Comment: NT-PROBNP | 229 | | | | Naturetic | | | | | | Peptide, | | | | | | External | | | | | + + + + + + + + | Specimen | + + | Blood | + + External Lab: eGFR (06/13/2017) + +-------+ + + + | Component | Value | Ref Range | Performed | Pathologist | | | | | At | Signature | + +-------+ + + + | eGFR, | >60 | | | | | External | | | | | + +-------+ + + + + + | Specimen | + + | Blood | + + External Lab: Creatinine (06/13/2017) + +-------+ + + + | Component | Value | Ref Range | Performed | Pathologist | | | | | At | Signature | + +-------+ + + + | Creatinine, | 0.95 | | | | | External | | | | | + +-------+ + + + + + | Specimen | + + | Blood | + + CBC with Differential (06/13/2017) + + + + + + | Component | Value | Ref Range | Performed | Pathologist | | | | | At | Signature | + + + + + + | MCH | 34.9 (A) | 26.0 - 33.0 pg | | | + + + + + + | MCHC | 34.8 | 31.0 - 37.0 % | | | + + + + + + + + | Specimen | + + | Blood | + + External Lab: CBC (06/13/2017) + +-------+ + + + | Component | Value | Ref Range | Performed | Pathologist | | | | | At | Signature | + +-------+ + + + | WBC, | 6.4 | | | | | External | | | | | + +-------+ + + + | HGB, | 13.9 | | | | | External | | | | | + +-------+ + + + | HCT, | 39.9 | | | | | External | | | | | + +-------+ + + + | PLT, | 181 | | | | | External | | | | | + +-------+ + + + | Lymphocytes | 37 | | | | | %, | | | | | | External | | | | | + +-------+ + + + | Monocytes | 8 | | | | | %, External | | | | | + +-------+ + + + | Eosinophils | 1 | | | | | %, | | | | | | External | | | | | + +-------+ + + + | Neutrophils | 3.46 | | | | | , Absolute, | | | | | | External | | | | | + +-------+ + + + | Lymphocytes | 2.32 | | | | | , Absolute, | | | | | | External | | | | | + +-------+ + + + | Monocytes, | 0.47 | | | | | Absolute, | | | | | | External | | | | | + +-------+ + + + | Eosinophils | 0.12 | | | | | , Absolute | | | | | + +-------+ + + + | Basophils, | 0.03 | | | | | Absolute | | | | | + +-------+ + + + | RBC, | 3.98 | | | | | External | | | | | + +-------+ + + + | MCV, | 100 | | | | | External | | | | | + +-------+ + + + | RDW, | 12.2 | | | | | External | | | | | + +-------+ + + + External Lab: Akash CARBAJAL (06/13/2017) + +-------+ + + + | Component | Value | Ref Range | Performed | Pathologist | | | | | At | Signature | + +-------+ + + + | INR, | 1.09 | | | | | External | | | | | + +-------+ + + + | PT, | 14.3 | 12.3 | | | | External | | | | | + +-------+ + + + + + | Specimen | + + | Blood | + + documented in this encounter Visit Diagnoses Not on filedocumented in this encounter"
--- OUTSIDE RECORDS SUMMARY | ~2019-09-01 | XMS | Encounter Summary ---
Demographics + + + | Address | [address] | | | [place] [address] | + + + | Home Phone | | + + + | Preferred Language | Unknown | + + + | Marital Status | | + + + | Baptist Affiliation | Unknown | + + + | Race | Unknown | + + + | Ethnic Group | Unknown | + + + Author + + + | Author | [facility] | | | and [place] | + + + | Organization | [facility] | | | and [...] Team Providers + +------+ + | Care Transportation Assistant Name | Role | Phone | [...] | HOSPITAL XRAY [address] | [address] | | | | | [place] | [address] | | | | | [place] | [place] [address] | | | | | [address] | [phone] | | | | | [phone] | | | +--------+ + + + [...]
--- OUTSIDE RECORDS SUMMARY | ~2019-09-01 | XMS | Encounter Summary ---
Demographics + + + | Address | [address] | | | [place] [address] | + + + | Home Phone | | + + + | Preferred Language | Unknown | + + + | Marital Status | | + + + | Congregational Affiliation | Unknown | + + + | Race | Unknown | + + + | Ethnic Group | Unknown | + + + Author + + + | Author | [facility] | | | and [place] | + + + | Organization | [facility] | | | and [place] [...] Team Providers + +------+ + | Care Snow Plow Operator Name | Role | Phone | + +------+ + | Faith Rodríguez RESOLUTION EXPERT | PCP | | + +------+ + Encounter Details +--------+ + + + + | Date | Type | Department | Care Team | Description | +--------+ + + + + | 10/13/ | Orders Only | [place] [facility] | Faith Rodríguez | Constipation due to | | 2016 | | [facility] | D, RESOLUTION EXPERT ONE | opioid therapy | | | | PR[address] C[address] | [facility] [place] | (Primary Dx) | | | | [address], | [place] [address] | | | | | [place] [address] | [phone] | | | | | [phone] | | | +--------+ + + + [...] + | Diagnosis | + + | Constipation due to opioid therapy - Primary | + + documented in this encounter"
--- OUTSIDE RECORDS SUMMARY | ~2019-09-01 | XMS | Encounter Summary ---
Demographics + + + | Address | [address] | | | [place] [address] | + + + | Home Phone | | + + + | Preferred Language | Unknown | + + + | Marital Status | | + + + | Hinduism Affiliation | Unknown | + + + | Race | Unknown | + + + | Ethnic Group | Unknown | + + + Author + + + | Author | [facility] | | | and [place] | + + + | Organization | [facility] | | | and [...] Team Providers + +------+ + | Care Inspector Salvage Name | Role | Phone | + [...] Procedures | PA-C [address] | [place] [address] | | | | | CT Chest wo | [address] | Phone: | | | | | Contrast CT | [place], [place] | [phone] | | | | | Chest | [address] | Fax: | | | | | Abdomen wo | Phone: | [phone] | | | | | Contrast | [phone] | | | | | | | Fax: | | | | | | | [phone] | | +--------+--------+ + + + + Reason for Visit Diagnostic/Screening (Routine) +--------+--------+ + + + + | Status | Reason | Specialty | Diagnoses / | Referred By | Referred To | | | | | Procedures | Contact | Contact | +--------+--------+ + + + + | Closed | | Radiology | Diagnoses | Spencer, | [address] | | | | | Pulmonary | Aric | [address] | | | | | nodules | Giovani, | [place], | | | | | Procedures | PA-C [address] | [place] [address] | | | | | CT Chest wo | [address] | Phone: | | | | | Contrast CT | [place], [place] | [phone] | | | | | Chest | [address] | Fax: | | | | | Abdomen wo | Phone: | [phone] | | | | | Contrast | [phone] | | | | | | | Fax: | | | | | | | [phone] | | +--------+--------+ + + + + Encounter Details +--------+ + + + + | Date | Type | Department | Care Team | Description | +--------+ + + + + | 10/15/ | Hospital | [place] [facility] | Aric Palmer | Pulmonary nodules | | 2018 | Encounter | [facility] [address] | [place] [address] | | | | | [place] | [address] [facility] [place], | | | | | [place], [place] | [place] [address] | | | | | [address] | [phone] | | | | | [phone] | | | +--------+ + + + [...] at Time of Discharge + + + +---------+ + + | Medication | Sig | Dispensed | Refills | Start | End Date | | | | | | Date | | + + + +---------+ + + | B Complex Vitamins | Take 1 tablet by | 90 each | 3 | 08/09/20 | | | (VITAMIN B COMPLEX) | mouth Daily. | | | 18 | | | tablet | | | | | | + + + +---------+ + + | Calcium | Take 2 tablets by | 180 | 3 | 08/09/20 | | | Carb-Cholecalciferol | mouth Daily. | tablet | | 18 | | | (CALCIUM 500 +D) | | | | | | | 500-400 MG-UNIT TABS | | | | | | + + + +---------+ + + | carvedilol (COREG) | Take 1 tablet by | 180 | 3 | 08/09/20 | | | 6.25 mg tablet | mouth 2 times daily | tablet | | 18 | | | | (with breakfast & | | | | | | | dinner). | | | | | + + + +---------+ + + | clopidogrel | Take 1 tablet by | 90 | 3 | 08/09/20 | | | (PLAVIX) 75 mg | mouth Daily. | tablet | | 18 | | | tablet | | | | | | + + + +---------+ + + | fluocinonide | Apply topically | 90 | 3 | 08/09/20 | | | (LIDEX) 0.05% cream | Daily. | Applicati | | 18 | | | | | on | | | | + + + +---------+ + + | Nutritional | Take 1 Can by mouth | 60 Can | 11 | 10/18/20 | | | Supplements (ENSURE | 2 times daily. | | | 18 | | | PLUS HN) | | | | | | | LIQDIndications: | | | | | | | Weight loss | | | | | | + + + +---------+ + + | nystatin | Swish and swallow 5 | 473 mL | 0 | 08/09/20 | | | (MYCOSTATIN) 100,000 | ml four times daily | | | 18 | | | units/mL | up to 48 hours after | | | | | | suspensionIndication | symptoms resolve | | | | | | s: Oropharyngeal | Indications: | | | | | | Candidiasis | Candidiasis Fungal | | | | | | | Infection of the | | | | | | | Oropharynx | | | | | + + + +---------+ + + | albuterol | Inhale 2 puffs into | 18 g | 3 | 08/09/20 | | | (PROVENTIL HFA) 90 | the lungs every 4 | | | 18 | 9 | | mcg/puff inhaler | hours as needed for | | | | | | | Wheezing or | | | | | | | Shortness of Breath | | | | | | | for up to 90 days. | | | | | + + + +---------+ + + | capsaicin | Apply topically | | 0 | | | | (ZOSTRIX) 0.025% | Daily. | | | | 9 | | cream | | | | | | + + + +---------+ + + | cyclobenzaprine | Take 1 tablet by | 270 | 0 | 08/09/20 | | | (FLEXERIL) 10 mg | mouth 3 times daily | tablet | | 18 | 9 | | tablet | as needed for Muscle | | | | | | | spasms. | | | | | + + + +---------+ + + | EPINEPHrine | Inject 0.3 mg into | | 0 | | | | auto-injector | the muscle as needed | | | | 9 | | (EPIPEN 2-TERRI) 0.3 | for Anaphylaxis. | | | | | | mg/0.3 mL injection | | | | | | + + + +---------+ + + | gabapentin | Take 3 capsules by | 810 | 0 | 10/18/20 | | | (NEURONTIN) 300 mg | mouth 3 times daily. | capsule | | 18 | 9 | | capsule | | | | | | + + + +---------+ + + | | Take 2 tablets by | 112 | 5 | 08/13/20 | | | HYDROcodone-acetamin | mouth 2 times daily. | tablet | | 18 | 9 | | ophen (NORCO) 5-325 | | | | | | | mg per tablet | | | | | | + + + +---------+ + + | | Take 2 tablets by | 120 | 0 | 03/13/20 | | | HYDROcodone-acetamin | mouth 2 times daily | tablet | | 18 | 9 | | ophen (NORCO) 5-325 | for 28 days. 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 | tablet | | 18 | 9 | | 40 MG tablet | | | | | | + + + +---------+ + + | nitroglycerin | Place 1 tablet under | 25 | 1 | 09/21/20 | | | (NITROSTAT) 0.4 mg | the tongue every 5 | tablet | | 17 | 9 | | SL tablet | minutes as needed | | | | | | | for Chest pain. | | | | | + + + +---------+ + + | omeprazole | Take 1 capsule by | 180 | 0 | 08/09/20 | | | (PRILOSEC) 20 mg | mouth 2 times daily. | capsule | | 18 | 9 | | capsuleIndications: | | | | | | | Gastroesophageal | | | | | | | reflux disease, | | | | | | | esophagitis presence | | | | | | | not specified | | | | | | + + + +---------+ + + | prazosin | Take 1 capsule by | 60 | 11 | 08/09/20 | | | (MINIPRESS) 2 MG | mouth 2 times daily. | capsule | | 18 | 9 | | capsuleIndications: | | | | | | | Essential | | | | | | | hypertension | | | | | | + + + +---------+ + + | simvastatin | Take 80 mg by mouth | | 0 | | | | (ZOCOR) 80 mg tablet | nightly. | | | | 9 | + + + +---------+ + + | | Inhale 2 puffs into | 1 | 2 | 08/09/20 | | | tiotropium-olodatero | the lungs Daily. | Inhaler | | 18 | 9 | | l (STIOLTO RESPIMAT) | | | | | | | 2.5-2.5 mcg/puff | | | | | | | inhalerIndications: | | | | | | | Chronic obstructive | | | | | | | pulmonary disease, | | | | | | | unspecified COPD | | | | | | | type ([facility]) | | | | | | + + + +---------+ + + | traZODone | Take 1 tablet by | 90 | 0 | 08/09/20 | | | (DESYREL) 100 mg | mouth nightly. Take | tablet | | 18 | 9 | | tablet | 2 tablets at night | | | | | + + + +---------+ + + documented as of this encounter Progress Notes Aric Palmer PA-C - 10/15/2018 5:04 PM PSTPlease call patient with results; a ll looks stable. Another CT in 6-12 months is recommended. Thank you documented in this encounter Plan of Treatment Not on filedocumented as of this encounter Procedures + +--------+ + + + | Procedure Name | Priori | Date/Time | Associated Diagnosis | Comments | | | ty | | | | + +--------+ + + + | CT CHEST WO CONTRAST | Routin | 10/15/2018 | Pulmonary nodules | Results for this | | | e | 9:39 AM | | procedure are in the | | | | PST | | results section. | + +--------+ + + + documented in this encounter Results CT Chest wo Contrast [...] nodules. please compare with previous imaging thank youCOMEZEKIEL | | STUDY:July 31, 2017, April 28, [...] Diagnosis | + + | Pulmonary nodules Other nonspecific abnormal finding of lung field | + + documented in this encounter"
--- OUTSIDE RECORDS SUMMARY | ~2019-09-01 | XMS | Encounter Summary ---
Demographics + + + | Address | [address] | | | [place] [address] | + + + | Home Phone | | + + + | Preferred Language | Unknown | + + + | Marital Status | | + + + | Protestant Affiliation | Unknown | + + + | Race | Unknown | + + + | Ethnic Group | Unknown | + + + Author + + + | Author | [facility] | | | and [place] | + + + | Organization | [facility] | | [...] Team Providers + +------+ + | Care Band Maker Name | Role | Phone | + [...] Medication Refill | | 2019 | | [facility] | [place] [address] | | | | | PR[address] | [facility], | | | | | [facility], | [place] [address] | | | | | [place] [address] | [phone] | | | | | [phone] | | | +--------+--------+ + + + [...]
--- OUTSIDE RECORDS SUMMARY | ~2019-09-01 | XMS | Encounter Summary ---
Demographics + + + | Address | [address] | | | [place] [address] | + + + | Home Phone | | + + + | Preferred Language | Unknown | + + + | Marital Status | | + + + | Uatsdin Affiliation | Unknown | + + + | Race | Unknown | + + + | Ethnic Group | Unknown | + + + Author + + + | Author | [facility] | | | and [place] | + + + | Organization | [facility] | | | and [...] Team Providers + +------+ + | Care Rubber Engraver Name | Role | Phone | + [...] Thrush, | | 2017 | Visit | [facility] | [employer] [address] | oral; | | | | PR[address] C[address] | [place] [address] | Gastroesophageal | | | | [facility], | [phone] | reflux disease, | | | | [place] [address] | | esophagitis presence | | | | [phone] | | not specified; | | | [...] disease, unspecified COPD type (HCC) - Tiotropium [place]-Olodaterol; Inhale 2 puffs into the lungs Daily. Dispense: 1 Inha ler; Refill: 2 6. Pain medication agreement signed Assessment & Plan: Patient on pain contract with provider that has recently left the practice. Taking 4-6 Nor co daily. Patient wishes to continue pain regimen for her would like to increase [place] from 4-6 daily to better control pain. [...] Swelling Bee Venom Anaphylaxis Uncoded Nonscreenable Allergen Bath, patient states he gets red spots and [...]
--- OUTSIDE RECORDS SUMMARY | ~2019-09-01 | XMS | Encounter Summary ---
Demographics + + + | Address | [address] | | | [place] [address] | + + + | Home Phone | | + + + | Preferred Language | Unknown | + + + | Marital Status | | + + + | Judaism Affiliation | Unknown | + + + | Race | Unknown | + + + | Ethnic Group | Unknown | + + + Author + + + | Author | [facility] | | | and [place] | + + + | Organization | [facility] | | | and [...] Team Providers + +------+ + | Care Loan Funder Name | Role | Phone | + +------+ + | Aric Palmer | PCP | | | [place] | | | + +------+ + Reason for Visit + + + | Reason | Comments | + + + | Provide Resources | GAVINW assistance with resources | + + + Encounter Details +--------+ + + + + | Date | Type | Department | Care Team | Description | +--------+ + + + + | 02/06/ | Telephone | [facility] | Estrellita Brasher | Provide Resources | | 2019 | | [facility] | D, [address] | (W assistance with | | | | PRIMARY CARE [address] | resources) | | | | [facility], | [place] [address] | | | | | [place] [address] | [phone] | | | | | [phone] | | | +--------+ + + + [...]
--- OUTSIDE RECORDS SUMMARY | ~2019-09-01 | XMS | Encounter Summary ---
Demographics + + + | Address | [address] | | | [place] [address] | + + + | Home Phone | | + + + | Preferred Language | Unknown | + + + | Marital Status | | + + + | Methodist Affiliation | Unknown | + + + | Race | Unknown | + + + | Ethnic Group | Unknown | + + + Author + + + | Author | [facility] | | | and [place] | + + + | Organization | [facility] | | | and [place] [...] Team Providers + +------+ + | Care Knockout Man Name | Role | Phone | + +------+ + PCP | Unavailable | + +------+ + Encounter Details +--------+ + + + + | Date | Type | Department | Care Team | Description | +--------+ + + + + | 05/09/ | Hospital | [facility] | Faith Rodríguez | | | 2017 | Encounter | HOSPITAL [facility]ION | D, DINKEY OPERATOR ONE | | | | | [address] | [facility] | | | | | [address] [place] | [place] [address] | | | | | [address] | [phone] | | | | | [phone] | | | +--------+ + + + [...]
--- OUTSIDE RECORDS SUMMARY | ~2019-09-01 | XMS | Encounter Summary ---
Demographics + + + | Address | [address] | | | [place] [address] | + + + | Home Phone | | + + + | Preferred Language | Unknown | + + + | Marital Status | | + + + | Restorationism Affiliation | Unknown | + + + | Race | Unknown | + + + | Ethnic Group | Unknown | + + + Author + + + | Author | [facility] | | | and [place] | + + + | Organization | [facility] | | | and [place] [...] Team Providers + +------+ + | Care Leaf Coverer Name | Role | Phone | + +------+ + PCP | Unavailable | + +------+ + Encounter Details +--------+ + + + + | Date | Type | Department | Care Team | Description | +--------+ + + + + | 12/16/ | Hospital | [place] [facility] | Jacklyn Saldana | | | 2010 | Encounter | HOSPITAL THERAPY PT | [address] | | | | | [address] | [address] | | | | | [place] | [place] [address] | | | | | [address] | [phone] | | | | | [phone] | | | +--------+ + + + [...]
--- OUTSIDE RECORDS SUMMARY | ~2019-09-01 | XMS | Encounter Summary ---
Demographics + + + | Address | [address] | | | [place] [address] | + + + | Home Phone | | + + + | Preferred Language | Unknown | + + + | Marital Status | | + + + | Sabianist Affiliation | Unknown | + + + | Race | Unknown | + + + | Ethnic Group | Unknown | + + + Author + + + | Author | [facility] | | | and [place] | + + + | Organization | [facility] | | | and [...] Team Providers + +------+ + | Care Textile Cutting Machine Operator Name | Role | Phone | + +------+ + | Aric Palmer | PCP | | | LETTY | | | + +------+ + Reason for Visit + + + | Reason | Comments | + + + | Provide Resources | [facility] assistance with moving into senior living care facility | + + + Encounter Details +--------+ + + + + | Date | Type | Department | Care Team | Description | +--------+ + + + + | 05/29/ | Telephone | [facility] | Estrellita Brasher | Provide Resources | | 2019 | | [facility] | [address] | ([facility] assistance with | | | | PRIMARY CARE [address] | moving into long | | | | [facility], | [place] [address] | term care contra [facility]) | | | | [place] [address] | [phone] | | | | | [phone] | | | +--------+ + + + [...]
--- OUTSIDE RECORDS SUMMARY | ~2019-09-01 | XMS | Encounter Summary ---
Demographics + + + | Address | [address] | | | [place] [address] | + + + | Home Phone | | + + + | Preferred Language | Unknown | + + + | Marital Status | | + + + | Amish Affiliation | Unknown | + + + | Race | Unknown | + + + | Ethnic Group | Unknown | + + + Author + + + | Author | [facility] | | | and [place] | + + + | Organization | [facility] [...] Team Providers + +------+ + | Care Digital Analytics Manager Name | Role | Phone | [...] | HOSPITAL XRAY [address] | [address] | | | | | [address] | [address] | | | | | [place] | [place] [address] | | | | | [address] | [phone] | | | | | [phone] | | | +--------+ + + + [...] D: | | | 07/08/2015 Job No.: [id number] Read By: DORYS HAMM MD | | [...] aorta status post surgical intervention. Job No.: [id number] Read By: DORYS | | Yoni HAMM [...] | | | | | |Job No.: [id number] | | | |Read By: DORYS HAMM MD | | | |Released By: DORYS HAMM MD | |Date: 07/09/2015 13:10 | | | | | + + documented in this encounter Visit Diagnoses Not on filedocumented in this encounter"
--- OUTSIDE RECORDS SUMMARY | ~2019-09-01 | XMS | Encounter Summary ---
Demographics + + + | Address | [address] | | | [place] [address] | + + + | Home Phone | | + + + | Preferred Language | Unknown | + + + | Marital Status | | + + + | Restorationism Affiliation | Unknown | + + + | Race | Unknown | + + + | Ethnic Group | Unknown | + + + Author + + + | Author | [facility] | | | and [place] | + + + | Organization | [facility] | | | and [...] Team Providers + +------+ + | Care Toxicology Teacher Name | Role | Phone | + +------+ + PCP | Unavailable | + +------+ + Encounter Details +--------+ + + + + | Date | Type | Department | Care Team | Description | +--------+ + + + + | 05/25/ | Hospital | [facility] | Faith Rodríguez | | | 2017 | Encounter | HOSPITAL XRAY [address] | [address], LUMBER [address] | | | | | [address] | [facility] [place] | | | | | [place] | [place] [address] | | | | | [address] | [phone] | | | | | [phone] | | | +--------+ + + + [...] | + +--------+ + + + | BONE DENSITY STUDY, | Routin | 05/25/2017 | | Results for this | | DXA | e | 8:35 AM | | procedure are in the | | | | PDT | | results section. | + +--------+ + + + documented in this encounter Results BONE DENSITY STUDY, DXA (05/25/2017 8:35 AM PDT) + + | Specimen | + + | | + + + + + | Narrative | Performed At | + + + | EXAMINATION: BONE DENSITY HISTORY: screening COMPARISON | | | STUDY: None FINDINGS: The femoral neck bone mineral density | | | measures 0.750 g/cm2. This represents an a T-score of -2.5 scratch | | | The L1-L4 lumbar spine bone mineral density measures 1.061 g/cm2. | | | This represents a T-score of -1.3 FRAX 10 year probability of a | | | major osteoporotic or hip fracture is 8.6 % and 4.2 %. | | | IMPRESSION: Osteoporosis. High fracture risk. Medical therapy and | | | yearly follow up DEXA evaluation is recommended JOB #: [id number] | | | Digitally Released by: Juan Miguel Hamm Read By: JUAN MIGUEL Vallejo | | | MD NORIS Date: 05/25/2017 11:25 | | + + + + + | Procedure Note | + + | Ezio Quiros Results In - 11/02/2017 1:19 PM PST EXAMINATION: | | BONE DENSITY | | | | HISTORY: | | screening | | | | COMPARISON STUDY: | | None | | | | FINDINGS: | | The femoral neck bone mineral density measures 0.750 g/cm2. This represents | | an a T-score of -2.5 scratch | | | | The L1-L4 lumbar spine bone mineral density measures 1.061 g/cm2. This | | represents a T-score of -1.3 | | | | FRAX 10 year probability of a major osteoporotic or hip fracture is 8.6 % and | | 4.2 %. | | | | IMPRESSION: | | Osteoporosis. High fracture risk. Medical therapy and yearly follow up DEXA | | evaluation is recommended | | | | | | JOB #: [id number] | | Digitally Released by: Juan Miguel Hamm | | | | | | Read By: JUAN MIGUEL HAMM MD | | Date: 05/25/2017 11:25 | | | + + documented in this encounter Visit Diagnoses Not on filedocumented in this encounter"
--- OUTSIDE RECORDS SUMMARY | ~2019-09-01 | XMS | Encounter Summary ---
Demographics + + + | Address | [address] | | | [place] [address] | + + + | Home Phone | | + + + | Preferred Language | Unknown | + + + | Marital Status | | + + + | Catholic Affiliation | Unknown | + + + | Race | Unknown | + + + | Ethnic Group | Unknown | + + + Author + + + | Author | [facility] | | | and [place] | + + + | Organization | [facility] | [...] Team Providers + +------+ + | Care Ocean Lifeguard Specialist Name | Role | Phone | [...] Medication Refill | | 2019 | | [facility] | [address] | | | | | PR[address] C[address] | [facility], | | | | | [facility], | [place] [address] | | | | | [place] [address] | [phone] | | | | | [phone] | | | +--------+--------+ + + + [...]
--- OUTSIDE RECORDS SUMMARY | ~2019-09-01 | XMS | Encounter Summary ---
Demographics + + + | Address | [address] | | | [place] [address] | + + + | Home Phone | | + + + | Preferred Language | Unknown | + + + | Marital Status | | + + + | Adventism Affiliation | Unknown | + + + | Race | Unknown | + + + | Ethnic Group | Unknown | + + + Author + + + | Author | [facility] | | | and [place] | + + + | Organization | [facility] | | | and [...] Providers + +------+ + | Care Paper Carrier Name | Role | Phone | + +------+ + | Faith Rdoríguez NP | PCP | | + +------+ + Encounter Details +--------+ + + + + | Date | Type | Department | Care Team | Description | +--------+ + + + + | 07/07/ | Imaging | [facility] | Héctor, | | | 2017 | Exam | [facility] | MD [address] | | | | | IMAGING | [address] [place] | | | | | [phone] | [place] [address] | | +--------+ + + + + [...] XR CHEST PA AND | Routin | 04/20/2017 | | Results for this | | LATERAL | e | 10:05 AM | | procedure are in the | | | | PDT | | results section. | + +--------+ + + + documented in this encounter Results XR Chest PA and Lateral (04/20/2017 10:05 AM PDT) + + | Specimen | + + | | + + + + + | Narrative | Performed At | + + + | External films for comparison only - no result from [place]. | [facility] | + + + + +---------+ + + | Performing | Address | City/State/Zipcode | Phone Number | | Organization | | | | + +---------+ + + | [facility] | | | | + +---------+ + + documented in this encounter Visit Diagnoses Not on filedocumented in this encounter"
--- OUTSIDE RECORDS SUMMARY | ~2019-09-01 | XMS | Encounter Summary ---
Demographics + + + | Address | [address] | | | [place] [address] | + + + | Home Phone [...] | Author | [facility] | | | and Escobarana | + + + | Organization | [facility] | | | and [...] Team Providers + +------+ + | Care Construction Scheduler Name | Role | Phone | + [...] Description | +--------+---------+ + + + | 10/11/ | Office | [place] | Faith Rodríguez | Essential | | 2017 | Visit | [facility] | D, [facility] | hypertension | | | | PRIMARY CARE [address] | [facility] | (Primary Dx); Other | | | | [facility], | [place] [address] | osteoarthritis of | | | | [place] [address] | [phone] | spine, lumbar | | | | [phone] | | region; Pain | | | | | | [...] + + + | Blood Pressure | 138/50 | 10/11/2017 1:06 PM | | | | | PST | | + + + + + | Pulse | 66 | 10/11/2017 1:06 PM | | | | | PST | | + + + + + | Temperature | 37 C (98.6 F) | 10/11/2017 1:06 PM | | | | | PST | | + + + + + | Respiratory Rate | 14 | 10/11/2017 1:06 PM | | | | | PST | | + + + + + | Oxygen Saturation | 96% | 10/11/2017 1:06 PM | | | | | PST | | + + + + + | Inhaled Oxygen | - | - | | | Concentration | | | | + + + + + | Weight | 67.8 kg (149 lb 7.6 | 10/11/2017 1:06 PM | | | | oz) | PST | | + + + + + | Height | - | - | | + + + + + | Body Mass Index | 22.07 | 09/19/2017 9:28 AM | | | | | PST | | + + + + + documented in this encounter Patient Instructions Patient Instructions Faith Rodríguez NP - 10/11/2017 1:00 PM PSTFormatting of this not e might be different from the original. Osteoarthritis: Coping with Pain There are many ways to control your pain. You re making a good start by learning about os teoarthritis and its treatments. Knowing more about this condition helps you work with your healthcare provider to find answers to problems. Keeping a positive outlook can help you man age pain from day to day. And making time each day to relax and enjoy yourself may help you control osteoarthritis pain, instead of letting it control you. Try these methods to help yo u cope with, and even reduce, your pain. Take control Relaxingmay help relieve muscle aches that result from joint pain. To relax, try these te chniques: Breathe slowly and calmly and think of a peaceful scene. Meditate by focusing your mind on one word, object, or idea. Getting plenty of sleepcan help reduce pain and let you function better. If pain is makin g it hard for you to sleep, ask your doctor about ways to control pain and ensure a good nig ht s sleep. Cutting back on caffeine and alcohol can help you sleep better. So can going t o bed and getting up at about the same time every day. Use distraction Getting your mind off the painmay seem hard to do. But it can actually help reduce pain. When you are in pain, try one of these ways of distracting yourself: Watch a funny movie with a friend. Listen to music you enjoy. Read a novel. Talk with friends or family. Go to a museum, park, or other favorite attraction. Arrange to do a regular activity, such as volunteer work. Heat and cold Using heat and cold treatments are simple ways to lessen arthritis symptoms: Heat soothes stiff joints and tired muscles. Heat works well before exercise, for exampl e. Heat treatments include: A warm shower or baths, or soak (for example, fill the sink with warm water and move you r fingers, hands, and wrists around in the water) A moist heating pad A warm, moist wash cloth An electric blanket or throw Cold treatments help to numb painful areas and decrease swelling. Cold treatments includ e the following wrapped in a thin towel: An ice pack or bag of ice A gel-filled cold pack A bag of frozen vegetables, like peas or corn Be careful when using heat or cold. You can injure your skin. Each treatment should only la st for 10 to 20 minutes. Your healthcare provider or therapist can give you specific instruc tions. Acupuncture Acupuncture is a [id number] practice. Practitioners insert thin needles in specific part s of the body. Research shows that it can help to relieve the pain of arthritis. For more information or to find a practitioner in your area, contact the [employer]. Its website is: http://www.medicalacupuncture.org/. Massage Therapeutic massage has many benefits. It may: Help you and your muscles relax Improve blood flow to muscles and joints Help joints stay more flexible Look for a certified massage therapist. Many are trained to treat sore muscles and joint pa in and stiffness. Vitamins, supplements, and herbs People with arthritis, or other long-term conditions that cause pain, often look for altern ative ways to lessen pain. Vitamins, supplements, and herbs may or may not help you to feel better. Before you try any vitamin, supplement, or herb, make sure you ask your healthcare p rovider or pharmacist. Physical therapy/occupational therapy Evaluation by a physical therapist and or occupational therapist for assessment for limitat ions in activities of daily living Assistance with developing an appropriate exercise routine for both muscle strengthening an d cardiovascular health Weight management Studies have demonstrated that weight loss in overweight individuals can improve osteoarthr itis symptoms. Talk with your healthcare provider regarding your optimal weight and techniques for weight management if necessary. Psychological treatments Research shows that many psychological therapies or those that deal with thinking and emoti ons, help people cope with arthritis pain. Therapies include cognitive-behavioral therapy (C BT), pain coping skills training, biofeedback, stress management, and hypnosis. Ask your [facility] provider for more information about these therapies. For more information about many of these methods, contact the National [facility] for [facility] tary and Alternative Medicine (NCCAM) at http://www.[facility].nih.gov. Date Last Reviewed: 12/06/201519997661-2790 [employer]. [address] [place] [address], [place] [address]. All righ ts reserved. This information is not intended as a substitute for professional medical care. Always follow your healthcare professional's instructions. Kicking the Smoking Habit If you smoke, quitting is one of the best changes you can make for your heart and your over all health. Your risk of heart attack goes down within one day of putting out that last ciga rette. As you go longer without smoking, your risk goes down even more. Quitting isn t eas y, but millions of people have done it. You can, too. It s never too late to quit. Getting started Boost your chances of success by deciding on your quit plan. Your health care provide r and cardiac rehab team can help you develop this plan. Even if you ve already quit, it s easy to slip back into smoking. Your plan can help you avoid and recover from relapse. In any case, start by setting a date to quit within a month, and do it. Orick to your quit plan Talk to your healthcare provider about prescription medicines and nicotine replacement p roducts that help stop the urge to smoke. Join a support group or quit smoking program. Talking with others about the challenges o f quitting can help you get through them. Ask other smokers in your household to quit with you. Look for the cues in your life that you associate with smoking and avoid them. Track your triggers What gives you that M-vfdj-n-cigarette feeling? List all the situations that make you want a cigarette. Then think of other ways to deal with these situations. Here are some exa mples: Situation How I'll handle it Finishing a meal Get up from the table and take a walk Having an argument Find a quiet place and breathe deeply Feeling lonely or bored Call a friend to talk Tips for quitting successfully List the benefits of quitting such as reducing heart risks and saving money. Keep this l ist and review it whenever you feel like smoking. Get support. Let your friends know you may call them to chat when you have an urge to sm jacquelyn. If you ve tried to quit before without success, this time avoid the triggers that may cause the relapse. Make the most of slip-ups. Try to learn from them, and then get back on track. Be accountable to your friends and your calendar so that you stay on track. For family and friends Be supportive and patient. Quitting smoking can be difficult and stressful. If you smoke, now s a great time to quit. Even if you don t quit, never smoke around your loved one. Secondhand smoke is dangerous to his or her heart. The best goals are accomplished in teams. Remember that when your loved one states he or she wants to stop smoking. Date Last Reviewed: 04/22/201619992719-3460 [employer] [address] [place] [address], [place] [address]. All righ ts reserved. This information is not intended as a substitute for professional medical care. Always follow your healthcare professional's instructions. Coping with Smoking Withdrawal For the first few days after you quit smoking, you may feel cranky, restless, depressed, or low on energy. These are symptoms of withdrawal. Your body needs time torecover from smok ing. Your symptoms should lessen within a few days. Coping with the urge to smoke Deep-breathe. Inhale through your nose. Count to 5. Slowly exhale through your mouth. Drink water. Try to drink 8 or more 8-ounce glasses of water a day. Keep your hands busy. Wash your car. Draw. Do a puzzle. Build a Quanlight. Delay. The urge to smoke lasts only 3 to 5 minutes. Get support Individual, group, and telephone counseling can help keep you on track. Ask your healthcare provider for more information about resources available to you. Control stress After you quit, you may feel irritable and stressed. Try taking a warm bath or shower. List en to music. Go for a walk or to the gym. Try yoga or meditate. Call friends or talk with a professional. Exercise Exercise helps your body and mind feel better. There are many ways to be more active. Find something you enjoy doing. See if a friend will join you for a walk or a bike ride. Sleep better You may feel tired but have trouble falling asleep. Try to relax before bed. Do a few stret celine exercises. Read for a while. Also, avoid caffeine for at least afew hours before bed time. Get fit, not fat You may notice an increased appetite. Many people who quit smoking gain a few pounds. To li eli weight gain, try to watch what you eat. Cut back on fat in your diet. Snack on low-calor ie foods, like fresh fruits and vegetables. Drink low-calorie liquids, especially water. Reg ular exercise can also help you stay fit. And remember: Your main goal is to be a nonsmoker. Stay focused on that goal. Quit-smoking products There are a number of products that can help you quit smoking including medicines and nicot ine replacement products. They are available gzgw-mmd-rrghelt or by prescription. Ask your ealtare provider if any of these could help you quit smoking. For more information https://smokefree.gov/ggkh-gl-wp-expert National [employer] [place] Smoking Quitline: 108-30N-CUQP (553-682-3970) Date Last Reviewed: 11/23/201619990720-9248 [employer] [address] [place] [address]. All [facility] ts reserved. This information is not intended as a substitute for professional medical care. Always follow your healthcare professional's instructions. documented in this encounter Progress Notes Faith Rodríguez NP - 10/11/2017 1:00 PM PST APSO PROGRESS NOTE Pt. Name/Age/: Saturnino Avila 72 y.o. 1945 Med. Record Number: [id number] Assessment and Plan: 1. Essential hypertension - prazosin (MINIPRESS) 2 MG capsule; Take 1 capsule by mouth 2 times daily. Dispense: 60 c apsule; Refill: 11 2. Other osteoarthritis of spine, lumbar region - HYDROcodone-acetaminophen (NORCO) 5-325 mg per tablet; Take 2 tablets by mouth 2 times da dominique. Dispense: 120 tablet; Refill: 0 - Drugs of Abuse, Panel, Pain Management 1, Reflex; Future 3. Pain medication agreement signed Reviewed his pain medication contract again, he is very consistent with daily use, no mamta rns for abuse. Pain Management A-.Pain Contract entered between Saturnino Avila and SANDER WILBURN B -Risks and benefits reviewed with patient C-[email or web address]@ D-Patient & Providers responsibilities discussed E-Face to Face needed every 90 days/q 3 months 1. Essential hypertension prazosin (MINIPRESS) 2 MG capsule 2. Other osteoarthritis of spine, lumbar region HYDROcodone-acetaminophen (NORCO) 5-325 mg per tablet Drugs of Abuse, Panel, Pain Management 1, Reflex 3. Pain medication agreement signed Patient Active Problem List Diagnosis AAA (abdominal aortic aneurysm) Acid reflux disease Joyce's esophagus Benign thyroid cyst Chronic low back pain COPD (chronic obstructive pulmonary disease) Hypertension Hyperlipidemia Osteoporosis Hx of colonic polyps Pulmonary nodules Pain medication agreement signed Subjective: The patient chart and medications were reviewed in detail and the patient was s een and examined. Saturnino is in for a pain management visit. He had his PET scan yesterday to follow up on ian g nodules. He will be going to [place] tomorrow to the vascular specialist, Dr. Little. He ordered most of his prescriptions refills except for the hydrocodone and prazosin which he needs reordered today. At his next visit we will reorder his medications that are due. His blood pressure continues to be good today. He will leave a urine sample today. He has gone from daily bowel movements to having them every other day. He would rather take a pill than powder to help with this. I will order Colace. He states he is down to smoking 1 pack a day, although he states the nicotine lozenges make his mouth taste like he has just smoked 6 cigarettes all at once and he feels actually incr ease his cravings. He is interested in having acupuncture to help with smoking cessation. Referral will be placed through the [facility]. He is not using the albuterol often and his lungs a re much improved today. Review of Systems Respiratory: Positive for cough. Cardiovascular: Negative for leg swelling. Gastrointestinal: Negative for abdominal pain and constipation (bowel movements every 2 day s, used to be daily). He states hernia has been "quiet" for the last month or so. Neurological: Negative for dizziness and tremors. Drowsiness: no, rests in the afternoons 20 minutes to an hour to stretch his back; no effec ts of drowsiness from the hydrocodone. FUNCTION General Activity:9 (With 10 being the most active possible) Mood:6 Walking Ability:6 Normal Work:9 Relationships:6 Sleep:6 GOALS Opioid Agreement: Patient is on a Opioid agreement See agreement enacted on July 24, 2017 Pain Management Agreement / Material Risk Notice Narcotic Controlled Substances - [place] 'Intractable pain' means that you have a source of pain which cannot be removed or otherwis e treated and no relief or cure of the cause of pain has been found after reasonable efforts , including an evaluation by one or more physicians specializing in the source of your pain (ORS 677.474). Your doctor may be a recognized specialist in the source of your pain or you r doctor may recommend such a specialist. Successful pain management requires: Full cooperation Teamwork Exploring alternatives and adjuncts Medical Condition: 1. Essential hypertension prazosin (MINIPRESS) 2 MG capsule 2. Other osteoarthritis of spine, lumbar region HYDROcodone-acetaminophen (NORCO) 5-325 mg per tablet Drugs of Abuse, Panel, Pain Management 1, Reflex 3. Pain medication agreement signed Specialist Consulted? yes Pharmacy Restriction Patient will get refills of medicine(s) from: [facility] [address] [place] [address] Goals and Alternatives Your goals from therapy are to reduce your pain to a level that will allow you to do the fo llowing: Better sleep and walking ability. Alternatives or additions to this therapy are: Acupuncture Massage Physical Therapy Pain Classes Yoga Counseling TENS Unit TERMS OF AGREEMENT There are certain rules that apply to patients receiving opioid medications for chronic hans n conditions from [facility]. If I prescribe these medications for you, you ne ed to agree to the following terms: 1. I will not seek opioid (narcotic) medications from any other doctor, dentist, clinic, em ergency room, hospital or friends/relatives. I will call and inform the clinic if I have a medical or dental problem that requires additional opioid medications. 2. I will not increase my daily dose of medication beyond what is prescribed for me. No ea rly refills will be given and no additional medication will be prescribed if I run out of me dication early. Changes in dosage can only be made at office visits with my provider. No c hanges other than decreases in the dose will be made over the phone. 3. I will make all requests for refills from my provider or covering doctor [facility] and during business hours. I will follow the prescription refill process and not make excessive telephone calls to the clinic, during or after business hours. 4. I will be responsible for my medications. If they are lost, they will not be replaced. If they are stolen, they will only be replaced if I bring a police report to the clinic. T hey will not be replaced a second time. 5. I agree to take full responsibility for my actions while under the influence of the pres cribed medication. I will follow any restrictions my doctor orders, which includes use of e quipment and/or driving. 6. I understand drinking alcohol while taking this medication may cause harm and that overu se will be considered breaking this contract. I will tell my doctor about my alcohol use an d if I have a history of problem drinking. 7. I understand that marijuana use (with or without a medical card) is breaking this contra ct. 8. I understand that using 'street drugs' or controlled substances not prescribed to me is breaking this contract. If I currently use or have a past addiction problem I will let my d octor know. A past history of problems does not mean I cannot be prescribed opioid medicati ons. 9. I agree to random urine drug screens and pill counts to make sure I am following this co ntract. 10. I understand that if I engage in any illegal behavior with these prescriptions I will b e discharged from the clinic. The behavior will also be reported to the police. MATERIAL RISK NOTICE There are risks with the use of controlled substances (opiates) such as, but not limited to : 1. BRAIN - sleepiness, difficulty thinking clearly, and confusion. Avoid alcohol while nayla ing these medications and use care when driving or operating machinery. Your ability to giovany e decisions may be impaired. 2. LUNG - slowing of breathing. Possibility of wheezing that can cause difficulty in catch ing your breath or being short of breath. 3. STOMACH & INTESTINES - Constipation is common and may be severe. Nausea and vomiting may happen. 4. SKIN - Itching and rash. 5. URINARY - Difficulty urinating. 6. - The may be dependent on opiates and have withdrawal symptoms after b irth. 7. DRUG INTERACTION(S) - may occur. Interactions that may change the effects of other medic ations cannot be reliably predicted. 8. TOLERANCE - with terminal manager use, an increased amount of the same drug may be needed to [place] ve the same pain relieving effect. 9. PHYSICAL DEPENDENCE/WITHDRAWAL - Most people develop a physical dependence on the medica tion within 3-4 weeks. If the medication is stopped suddenly, symptoms of withdrawal may [place] ppen. These symptoms may include nausea and vomiting, sweating, flu-like symptoms, stomach cramping and abnormal heartbeats. These symptoms are not life threatening. Narcotics may ne ed to be slowly weaned (tapered off) under the direction of your provider or a chemical depe ndency detoxification program. 10. ADDICTION (ABUSE) - This refers to behaviors that are directed toward getting or using these drugs in a non-medically necessary supervised manner. People with a history of alcoho l and/or drug abuse have an increased risk of developing addiction. 11. ALLERGIC REACTIONS - are possible with any medication. This usually happens early afte r starting the medication. Most side effects are temporary and can be controlled by continu ing therapy or the use of other medications. Pain Contract Signed: July 24, 2017 Risk Benefits last reviewed and signed Risk/Benefits Notice Complete yes Family History Problem Relation Age of Onset Lung cancer Mother Hypertension Mother Lung cancer Father Social History Social History Marital status: Spouse name: N/A Number of children: N/A Years of education: N/A Social History Main Topics Smoking status: Current Every Day Smoker Packs/day: 1.00 Years: 62.00 Types: Cigarettes Start date: 05/19/1954 Smokeless tobacco: Never Used Alcohol use Yes Drug use: No Sexual activity: Not Currently Other Topics Concern None Social History Narrative None EMOTIONAL HEALTH Patient facing unusual stress at this time: yes, trips to [place] and roommate's mental state History of emotional or mental problems: no Patient facing situations that make them feel unsafe at home: no Patient has been emotionally or physically abused by someone important to them: no If yes Are you safe now? N/A LEARNING NEEDS Are there any learning needs (ethnic,cultural, or spiritual) we should know about that migh t impact your care or your ability to understand treatments/procedures/educational materials }No Objective: Vitals: 10/11/17 1306 BP: 138/50 Pulse: 66 Resp: 14 Temp: 37 C (98.6 F) Physical Exam Constitutional: He is oriented to person, place, and time. He appears well-developed and we ll-nourished. No distress. thin HENT: Head: Normocephalic and atraumatic. Eyes: Pupils are equal, round, and reactive to light. Neck: Normal range of motion. Cardiovascular: Normal rate, regular rhythm and intact distal pulses. Pulmonary/Chest: Effort normal and breath sounds normal. No respiratory distress. He has no wheezes. Lungs are much improved over last visit. Still diminished in bases, but no wheezing today Abdominal: Soft. Bowel sounds are normal. He exhibits no distension. There is no tenderness . Musculoskeletal: He exhibits no edema. Neurological: He is alert and oriented to person, place, and time. Skin: Skin is warm and dry. Psychiatric: He has a normal mood and affect. His behavior is normal. Judgment and thought content normal. Current Medications: albuterol vitamin B complex capsaicin cyclobenzaprine EPINEPHrine auto-injector fluocinonide gabapentin HYDROcodone-acetaminophen lisinopril nicotine polacrilex nitroglycerin ENSURE PLUS HN omeprazole prazosin simvastatin tiotropium-olodaterol traZODone Orders Placed This Encounter Procedures Drugs of Abuse, Panel, Pain Management 1, Reflex Standing Status: Future Number of Occurrences: 1 Standing Expiration Date: 10/11/2018 Order Specific Question: PRESCRIBED DRUG #01 Answer: HYDRO Electronically signed by: SANDER Wilburn, 10/11/2017 14:53 No results found for this or any previous visit (from the past 24 hour(s)). Entered by VIRGINIA Patel, acting as scribe for SANDER Wilburn. The documentatio n recorded by the scribe accurately reflects the service I personally performed and the deci sions made by me. Cherrie Garay CC CM A - 10/11/2017 1:00 PM PSTPt is here for a medication follow up BENTON Blakely document ed in this encounter Plan of Treatment Not on filedocumented as of this encounter Results Drugs of Abuse, Panel, Pain Management 1, Reflex (10/11/2017 1:50 PM PST) + + + + + + | Component | Value | Ref Range | Performed | Pathologist | | | | | At | Signature | + + + + + + | Prescribed | Gabapentin | | REFERENCE | | | Drug 1, | | | [facility] | | | Urine | | | [facility] | | | | | | - [facility] | | | | | | [facility] | | + + + + + + | Prescribed | Hydrocodone | | REFERENCE | | | Drug 2, | | | [facility] | | | Urine | | | DIAGNOST[facility] | | | | | | - [facility] | | | | | | [facility] | | + + + + + + | Creatinine | 162.2 | >=20.0 mg/dL | REFERENCE | | | | | | [facility] | | | | | | [facility] | | | | | | - [facility] | | | | | | [facility] | | + + + + + + | pH, Urine | 5.9 | 4.5 - 9.0 | REFERENCE | | | | | | [facility] | | | | | | [facility] | | | | | | - [facility] | | | | | | [facility] | | + + + + + + | Oxidants | Negative | <200 mcg/mL | REFERENCE | | | Screen, | | | [facility] | | | Urine | | | DIAGNOST[facility] | | | | | | - [facility] | | | | | | [facility] | | + + + + + + | Amphetamine | NEGATIVE | <500 ng/mL | REFERENCE | | | Screen, | | | [facility] | | | Urine | | | DIAGNOST[facility] | | | | | | - [facility] | | | | | | [facility] | | + + + + + + | Amphetamine | CONSISTENT | | REFERENCE | | | s [facility] | | | [facility] | | | | | | [facility] | | | | | | - [facility] | | | | | | [facility] | | + + + + + + | Barbiturate | NEGATIVE | <300 ng/mL | REFERENCE | | | s Screen, | | | [facility] | | | Urine | | | DIAGNOST[facility] | | | | | | - [facility] | | | | | | [facility] | | + + + + + + | Barbiturate | CONSISTENT | | REFERENCE | | | s medMATCH | | | [facility] | | | | | | [facility] | | | | | | - [facility] | | | | | | [facility] | | + + + + + + | Benzodiazep | NEGATIVE | <100 ng/mL | REFERENCE | | | wendi | | | [facility] | | | Screen, | | | DIAGNOSTICS | | | Urine | | | - [facility] | | | | | | [facility] | | + + + + + + | Benzodiazep | CONSISTENT | | REFERENCE | | | wendi | | | [facility] | | | [facility] | | | DIAGNOST[facility] | | | | | | - [facility] | | | | | | [facility] | | + + + + + + | Marijuana | NEGATIVE | <20 ng/mL | REFERENCE | | | Metabolite | | | [facility] | | | | | | [facility]NOST[facility] | | | | | | - [facility] | | | | | | [facility] | | + + + + + + | Marijuana | CONSISTENT | | REFERENCE | | | Metab | | | [facility] | | | [facility] | | | [facility]NO[facility] | | | | | | - [facility] | | | | | | [facility] | | + + + + + + | Cocaine | NEGATIVE | <150 ng/mL | REFERENCE | | | Metabolite | | | [facility] | | | | | | [facility] | | | | | | - [facility] | | | | | | [facility] | | + + + + + + | Cocaine | CONSISTENT | | REFERENCE | | | Metab | | | [facility] | | | [facility] | | | DIAGNOST[facility] | | | | | | - [facility] | | | | | | [facility] | | + + + + + + | Methadone | NEGATIVE | <100 ng/mL | REFERENCE | | | Screen, | | | [facility] | | | Urine | | | DIAGNOST[facility] | | | | | | - [facility] | | | | | | [facility] | | + + + + + + | Methadone | CONSISTENT | | REFERENCE | | | Metab | | | [facility] | | | [facility] | | | DIAGNOST[facility] | | | | | | - [facility] | | | | | | [facility] | | + + + + + + | Opiates | POSITIVE (A) | <100 ng/mL | REFERENCE | | | | | | [facility] | | | | | | [facility] | | | | | | - [facility] | | | | | | [facility] | | + + + + + + | Codeine | NEGATIVE | <50 ng/mL | REFERENCE | | | Confirm, | | | [facility] | | | Urine | | | DIAGNOST[facility] | | | | | | - [facility] | | | | | | [facility] | | + + + + + + | Codeine | CONSISTENT | | REFERENCE | | | med[facility] | | | [facility] | | | | | | [facility] | | | | | | - [facility] | | | | | | [facility] | | + + + + + + | Hydrocodone | 582 (H) | <50 ng/mL | REFERENCE | | | Confirm, | | | [facility] | | | Urine | | | DIAGNOST[facility] | | | | | | - [facility] | | | | | | [facility] | | + + + + + + | Hydrocodone | CONSISTENT | | REFERENCE | | | medMATCH | | | [facility] | | | | | | [facility] | | | | | | - [facility] | | | | | | [facility] | | + + + + + + | Hydromorpho | 795 (H) | <50 ng/mL | REFERENCE | | | ne, | | | [facility] | | | Confirm, | | | DIAGNOSTICS | | | Urine | | | - [facility] | | | | | | [facility] | | + + + + + + | Hydromorpho | CONSISTENT See Note 1 | | REFERENCE | | | ne [facility] | | | [facility] | | | | | | [facility] | | | | | | - [facility] | | | | | | [facility] | | + + + + + + | Morphine | NEGATIVE | <50 ng/mL | REFERENCE | | | Confirm, | | | [facility] | | | Urine | | | DIAGNOST[facility] | | | | | | - [facility] | | | | | | [facility] | | + + + + + + | Morphine | CONSISTENT | | REFERENCE | | | medMATCH | | | [facility] | | | | | | [facility] | | | | | | - [facility] | | | | | | [facility] | | + + + + + + | Norhydrocod | 1118 (H) | <50 ng/mL | REFERENCE | | | one | | | [facility] | | | Confirm, | | | DIAGNOSTICS | | | Urine | | | - [facility] | | | | | | [facility] | | + + + + + + | Norhydrocod | CONSISTENT See Note 2 | | REFERENCE | | | one | | | [facility] | | | [facility] | | | DIAGNOST[facility] | | | | | | - [facility] | | | | | | [facility] | | + + + + + + | Oxycodone, | NEGATIVE | <100 ng/mL | REFERENCE | | | UR | | | [facility] | | | | | | [facility] | | | | | | - [facility] | | | | | | [facility] | | + + + + + + | Oxycodone | CONSISTENT | | REFERENCE | | | medMATCH | | | [facility] | | | | | | [facility] | | | | | | - [facility] | | | | | | [facility] | | + + + + + + | Phencyclidi | NEGATIVE | <25 ng/mL | REFERENCE | | | ne, Screen, | | | [facility] | | | Urine | | | DIAGNOSTICS | | | | | | - [facility] | | | | | | [facility] | | + + + + + + | Phencyclidi | CONSISTENTComment: | | REFERENCE | | | ne medMATCH | Note 1: Hydromorphone is | | [facility] | | | | a metabolite of | | DIAGNOSTICS | | | | hydrocodone as well as a | | - [facility] | | | | prescribed drug. Note | | [facility] | | | | 2: Norhydrocodone is a | | | | | | metabolite of | | | | | | Hydrocodone. Med[facility] | | | | | | [...] | | | | | medication(s) listed. @ | | | | | | Test Performed By: | | | | | | [facility] | | | | | | [place] | | | | | | Keturah Grissom M.D., | | | | | | , Laboratory | | | | | | Director [id number] | | | | | | [facility] | | | | | | [place] [phone] | | | | | | CLIA #[id number] | | | | + + + + + + + + | Specimen | + + | Urine | + + + + + | Narrative | Performed At | + + + | Performing Organization Information: Site ID: PAIN MANAGEMENT | REFERENCE LAB | | PROFILE 1 WITH CONFIRMATION, URINE Name: Address: , | [facility] | | Director: | DIAGNOSTICS - | | | [facility] | | | [facility] | + + + + + + + + | Performing | Address | City/State/Zipcode | Phone Number | | Organization | | | | + + + + + | REFERENCE LAB | [id number] [facility] | [place], [place] | | | [facility] - | | [phone] | | | [facility] | | | | + + + + + documented in this encounter Visit Diagnoses + + | Diagnosis | + + | Essential hypertension - Primary Unspecified essential hypertension | + + | Other osteoarthritis of spine, lumbar region | + + | Pain medication agreement signed Encounter for long-term (current) use of other | | medications | + + documented in this encounter
--- OUTSIDE RECORDS SUMMARY | ~2019-09-01 | XMS | Encounter Summary ---
Demographics + + + | Address | [address] | | | [place] [address] | + + + | Home Phone | | + + + | Preferred Language | Unknown | + + + | Marital Status | | + + + | Scientology Affiliation | Unknown | + + + | Race | Unknown | + + + | Ethnic Group | Unknown | + + + Author + + + | Author | [facility] | | | and [place]obar[place] | + + + | Organization | [facility] | | | and [...] Team Providers + +------+ + | Care Gas Furnace Installer Name | Role | Phone | + +------+ + | Faith Rodríguez NP | PCP | | + +------+ + Reason for Visit + + + | Reason | Comments | + + + | Hypertension | | + + + | Results | CT | + + + Encounter Details +--------+---------+ + + + | Date | Type | Department | Care Team | Description | +--------+---------+ + + + | 09/21/ | Office | [place] | Faith Rodríguez | Essential | | 2017 | Visit | [facility] | D, PLASTIC MOLDING OPERATOR ONE | hypertension | | | | PRIMARY CARE [address] | [facility] | (Primary Dx); | | | | [facility], | [place] [address] | Pulmonary nodules; | | | | [place] [address] | [phone] | Panlobular emphysema | | | | [phone] | | ([facility]) | +--------+---------+ + + + [...] + + + | Blood Pressure | 125/54 | 09/21/2017 3:06 PM | | | | | PST | | + + + + + | Pulse | 74 | 09/21/2017 3:06 PM | | | | | PST | | + + + + + | Temperature | 37 C (98.6 F) | 09/21/2017 3:06 PM | | | | | PST | | + + + + + | Respiratory Rate | 16 | 09/21/2017 3:06 PM | | | | | PST | | + + + + + | Oxygen Saturation | 92% | 09/21/2017 3:06 PM | | | | | PST | | + + + + + | Inhaled Oxygen | - | - | | | Concentration | | | | + + + + + | Weight | 65.3 kg (143 lb 15 | 09/21/2017 3:06 PM | | | | oz) | PST | | + + + + + | Height | - | - | | + + + + + | Body Mass Index | 21.26 | 09/19/2017 9:28 AM | | | | | PST | | + + + + + documented in this encounter Patient Instructions Patient Instructions Faith Rodríguez NP - 09/21/2017 2:30 PM PSTNitroglycerine Protoco l for Angina 1.Sit down and place 1 nitroglycerine tablet under your tongue and wait 3-5 minutes. If angina is unrelieved: 2.Place another nitroglycerine tablet under your tongue and wait 3-5 minutes. If angina is still unrelieved: 3.Take a third nitroglycerine tablet and CALL [address] yourself[address] DO NOT have [facility] person drive you to the hospital. You may be having a heart attack, and you should be in the care of Medics who will safely bring you to the hospital. Copyright [employer]. All rights reserved. Heart Disease Education The heart beats 60 to 100 timesper minute, 24 hours a day. This equals almost 1000,000 ti mes a day. It pumpsblood with oxygen and nutrients to the tissues and organs of the body. But the heart is a muscle and needs its own supply of blood. Blood flow to the heart is supp lied by the coronary arteries. Coronary artery disease (atherosclerosis) is a result of chol esterol, saturated fat, and calcium deposits (plaques) that build up inside the lowe. This causes inflammation withinthe coronary arteries. These plaques narrow the artery and reduc e blood flow to the heart muscle. The reduction in blood flow to the heart muscle decreases oxygen supply to the heart. If the narrowing is significant enough, the oxygen supply to one or more regions of the heart can be temporarily or permanently shut down. This can causec hest pain, and possibly of heart tissue (heart attack). Types of chest pain Angina is the name for pain in the heart muscle. Angina is a warning sign of serious heart disease. When untreated it can lead to a heart attack, also known as acute myocardial infarc tion, or AMI. Angina occurs when there is not enough blood and oxygen flowing to the heart f or the amount of work it is doing. This most often happens during physical exertion, when th e heart is working hardest. It is usuallyrelieved by rest or nitroglycerin. Angina may als o occur after a large meal when extra blood is sent to the digestive organs and less goes to the heart. In the case of advanced or unstableheart disease, angina can occur at rest or awaken you from sleep. Angina usually lasts from a few minutes up to 20 minutes or more. Whe n treated early, the effects of angina can be reversed without permanent damage to the heart . Angina is a serious condition and needs to be evaluated by a medical professional immediat rebecca. There are two types of angina stable and unstable: Stable angina usually occurs witha predictablelevel of activity. Being stable, its c haracter, severity, and occurrence do not change much over time. It usually starts with acti vity, and resolves with rest or taking your medicine as instructed by your doctor. The sympt oms usually do not last long. Unstable angina changes or gets worse over time. It is different from whatever you are u sed to. It may feel different or worse, begin without cause, occur with exercise or exertion , wake you up from sleep, and last longer. It may not respond in the same way as it does whe n you take your usual medicines for an attack. This type of angina can be a warning sign of an impending heart attack. A heart attack is usually the result of a blood clot that suddenly forms in a coronary rebecca ry that has been narrowed with plaque. When this occurs,blood flow may be cutoff to a pa rt of the heart muscle, causingthe cellsto . This weakens the pumping action of the h eart, which affects the delivery of blood to all the other organs in the body including the brain.This damage is not reversible. However, early treatment can limit the amount of gisela ge. The pain you feel with angina and a heart attack may have a similar quality. However, it is usually different in intensity and duration. Here are some typical descriptions of a heart attack: It is most often experienced as a squeezing, crushing, pressure-like sensation in the ce nter of the chest. It is sometimes described as something heavy sittingon my chest. It may feel more like a bad case of indigestion. The pain may spread from the chest to the arm, shoulder, throat or jaw. Sometimes the pain is not felt in the chest at all, but only in the arm, shoulder, throa t or jaw. There may also be nausea, vomiting, dizziness or light-headedness, sweating and trouble breathing. Palpitations, or your heart beating rapidly A new, irregular heart beat Unexplained weakness You may not be able to tell the difference between "bad" angina and a heart attack at home. Seek help if your symptoms are different than usual. Do not be in denial or just try to "to ugh it out." Call 911 This is the fastest and safest way to get to the emergency department. The paramedics can a lso start treatment on the way to the hospital, saving valuable time for your heart. If the angina gets worse, ifit continues, or if it stops and returns, call 911 immedia tely. Do not delay. You may be having a heart attack. After you call 911, take a second tablet or spray unless instructed otherwise. When repe ating doses, sit down if possible, because it can make you feel lightheaded or dizzy. Wait a nother 5 minutes. If the angina still does not go away, take a third tablet or spray. Do not take more than 3 tablets or sprays within 15 minutes. Stay on the phone with 911 for furthe r instruction. Your healthcare provider may give you slightly different instructions than those above. If so, follow them carefully. Do not wait until symptoms become severe to call 911. Other reasons to call 911 include: Trouble breathing Feeling lightheaded, faint, or dizzy Rapid heart beat Slower than usual heart rate compared to your normal Angina with weakness, dizziness, fainting, heavy sweating, nausea, or vomiting Extreme drowsiness, confusion Weakness of an arm or leg or one side of the face Difficulty with speech or vision When to seek medical care Remember, the signs and symptoms of a heart attack are not always like they are on TV. Some times they are not so obvious. You may only feel weak, or just not right. If it is not clear or if you have any doubt, call for advice. Seek help if there is a change in the type of pain, if it feels different, or if your sy mptoms are mild. Do not drive yourself. Have someone else drive you. If no one can drive, call 911. Do not delay. Fast diagnosis and treatment can prevent or limit the amount of heart gisela ge during a heart attack. Do not go to your doctor's office or a clinic as they may not be able to provide all the testing and treatment required for this condition. If your doctor has given you medicine to take when symptoms occur, take them but don't d elay getting help trying to locate medicines. What happens in the emergency department The emergency department is connected to your local emergency medical system (EMS) through 911. That's why during a cardiac emergency, calling 911 is the fastest way to get help. The goal of the emergency department is to rapidly screen, evaluate, and treat people. Once you are there, an electrocardiogram (ECG or heart tracing) will be done. Blood samples may be taken to look for the presence of heart enzymes that leak from damaged heart cells a nd show if a heart attack is occurring. You will often be evaluated by a research laboratory specialist (c ardiologist) who decides the best course of action. In the case of severe angina or early he art attack, and depending on the circumstances, powerful "clot busting" medicines can be use d to dissolve blood clots in the coronary artery. In other cases, you may be taken to a [facility] catheterization lab. Here,a tiny balloon-tipped catheter isadvanced through blood ve ssels to the heart. There the balloon is inflated pushing open the blood vessel restoring bl ood flow. Risk factors for heart disease Risk factors for heart disease are a combination of genetic and lifestyle. Many risk factor s work by either directly or indirectly damaging the blood vessels of the heart, or by incre asing the risk of forming blood or cholesterol clots, which then clog up and block the arter ies. Examples of physical lifestyle risk factors: Cigarette smoking High blood pressure High blood cholesterol Use of stimulant drugs such as cocaine, crack, and amphetamines Eating a high-fat, high-cholesterol meal Diabetes Obesity which increases risk for diabetes and high blood pressure Lack of regular physical activity Examples of emotional lifestyle factors: Chronic high stress levels release stress hormones. These raise blood pressure and zbigniew sterol level and makes blood clot more easily. Held-in anger, hostile or cynical attitude Social and emotional isolation, lack of intimacy Loss of relationship Depression Other factors that increase the risk of heart attack that you cannot control : Age. The older you get beyond 40, the greater is your risk of significant coronary arter y disease. Gender. More men than women get heart disease; but once past menopause, women who are no t taking estrogen replacement have the same risk as men for a heart attack. Family history. If your mother, father, brother or sister has coronary artery disease, y our risk of having it is higher than a person your age without this family history. What can you do to decrease your risk To reduce your risk of heart disease: Get regular checkups with your doctor. Take your medicines for blood pressure, cholesterol or diabetes as directed. Watch your diet. Eat a heart healthy diet choosing fresh foods, less salt, cholesterol, and fat Stop smoking. Get help if needed. Get regular exercise. Manage stress. Carry a list of medicines and doses in your wallet. Date Last Reviewed: 10/21/201519997798-2508 [employer] [address] [place] [address], [place] [address]. All righ ts reserved. This information is not intended as a substitute for professional medical care. Always follow your healthcare professional's instructions. documented in this encounter Progress Notes Faith Rodríguez, KEN - 09/21/2017 2:30 PM PST Patient ID: Saturnino [place] is a 72 y.o. year old male Chief Complaint: Chief Complaint Patient presents with Hypertension Results CT Assessment and Plan: 1. Essential hypertension. Continue lisinopril-blood pressures well maintained with this. Follow low salt diet, limit to less than 2 grams a day. Reviewed use of nitro SL tabs and to use these if he has any f urther episodes of angina. Discussed that since his cardiac tests indicate an old VT , and with his heart failure and cigarette smoking he is at very high risk of another Mi, if he higginbotham s to take the nitro or has any further episodes of chest pain, jaw pain, nausea or dizziness , feeling faint or lightheaded, he needs to call 911 immediately. 2. Pulmonary nodules Follow up with Dr. Stringer as planned for PET scan. 3. Panlobular emphysema (HCC) Continue to try to cut down on smoking, reiterated that he needs to stop smoking completely before he can have any surgery. He has the nicotine lozenges and feels motivated to contin ue to cut down. Subjective: He saw a certified art therapist, Dr. Jcarlos Stringer on 09/19 for evaluation of pulmonary nodules on CT and COPD. Dr. Stringer is concerned about the nodules, a 9 mm spiculated nodlue in anter ior segment of right upper lobe, and two satellite nodules, and he would like to be able to do the PET scan because he is thinking he will most likely need radiation. He was also told that he had a silent VT in May when we thought he might have had a TIA. He will be seeshaquille larson a snuff box finisher in September tollow up on his old VT and recent echo results will be faxed t o him as well. We discussed his echo results which indicate left atrial enlargement and an ejection fraction of 35% as well as diastolic dysfunction. Reports his mother also had a s ilent VT at age 75 when receiving chemo for her lung cancer, and she had a partial left lobe ctomy due to lung cancer from supposed secondhand smoke exposure as she was not a smoker at age 71. His sister also had an VT at age 35 when she quit producing platelets. He is seeing the snuff box finisher on the 12th in [place], and he is going to see the pulmon ologist in two weeks as well. 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 He has cut down his cigarette use to a pack a day, he has lost three pounds since o ur last visit. States he used to have chest pain in his 50's and he went in to an ER in [facility] at that time due to chest pain because he thought he was having a heart attack but, this was ruled out. He reports a few weeks ago he thinks he might have lost conciousness for abo ut 15 seconds and fell out of bed with some chest pain, but did not want to seek medical car e as the chest pain resolved after this and he "felt Ok" after that. He thinks he might higginbotham ve had nitroglycerin tabs when he lived in [place]. He states he did ok with these, only higginbotham d to use them a few times. I will send a Rx for nitro tabs for him to have on hand. Allergies: Allergies Allergen Reactions Aspirin Nausea Only and Swelling Bee Venom Anaphylaxis Codeine Nausea And Vomiting Problem List: Patient Active Problem List Diagnosis AAA (abdominal aortic aneurysm) Acid reflux disease Joyce's esophagus Benign thyroid cyst Chronic low back pain COPD (chronic obstructive pulmonary disease) Hypertension Hyperlipidemia Osteoporosis Hx of colonic polyps Pulmonary nodules Social History: Social History Social History Marital status: Spouse name: N/A Number of children: N/A Years of education: N/A Social History Main Topics Smoking status: Current Every Day Smoker Packs/day: 1.00 Years: 62.00 Types: Cigarettes Start date: 05/19/1954 Smokeless tobacco: Never Used Alcohol use Yes Drug use: No Sexual activity: Not Currently Other Topics Concern None Social History Narrative None Family History: Family History Problem Relation Age of Onset Lung cancer Mother Hypertension Mother Lung cancer Father Medications: Current Outpatient Prescriptions Medication Sig Dispense Refill [...] tablets by mouth 2 times d aily. lisinopril (PRINIVIL,ZESTRIL) 40 MG tablet Take 40 [...] daily. prazosin (MINIPRESS) 2 MG capsule Take 2 mg by mouth 2 times daily. simvastatin (ZOCOR) 80 mg tablet Take 80 mg by mouth nightly. tiotropium-olodaterol (STIOLTO RESPIMAT) 2.5-2.5 mcg/puff inhaler Inhale 2 puffs into t he lungs Daily. traZODone (DESYREL) 100 mg tablet Take 100 mg by mouth nightly. No current facility-administered medications for this visit. Review of Systems Constitutional: Positive for fatigue and unexpected weight change. Negative for activity ch peyman, chills and fever. Respiratory: Positive for cough, shortness of breath (with exertion) and wheezing. Negative for apnea, chest tightness and stridor. Cardiovascular: Negative for chest pain, palpitations and leg swelling. Gastrointestinal: Negative for abdominal pain and blood in stool. Musculoskeletal: Positive for arthralgias and back pain. Neurological: Negative for dizziness. Objective: Vitals: BP 125/54 | Pulse 74 | Temp 37 C (98.6 F) (Temporal) | Resp 16 | Wt 65.3 kg (143 lb 15 oz) | SpO2 92% | BMI 21.26 kg/m No results found for this or any previous visit (from the past 1008 hour(s)). Physical Exam Constitutional: He is oriented to person, place, and time. He appears well-developed. thin HENT: Head: Normocephalic and atraumatic. Eyes: Pupils are equal, round, and reactive to light. Cardiovascular: Normal rate, regular rhythm and intact distal pulses. Pulmonary/Chest: Effort normal. No respiratory distress. He has wheezes. He has no rales. H e exhibits no tenderness. Abdominal: Soft. Bowel sounds are normal. There is no tenderness. Ventral hernia, reducible Neurological: He is alert and oriented to person, place, and time. Skin: Skin is warm and dry. Psychiatric: He has a normal mood and affect. Cherrie Garay CC CM A - 09/21/2017 2:30 PM PSTPt is here today to talk about CT scan results. TAYE BlakelyA carina curiel in this encounter Plan of Treatment Not on filedocumented as of this encounter Procedures + +--------+ + + + | Procedure Name | Priori | Date/Time | Associated Diagnosis | Comments | | | ty | | | | + +--------+ + + + | IMAGING REPORT - | | 10/12/2017 | | Results for this | | EXTERNAL SCAN | | 12:00 AM | | procedure are in the | | | | PST | | results section. | + +--------+ + + + documented in this encounter Results IMAGING REPORT - EXTERNAL SCAN (10/12/2017 12:00 AM PST) + + + | Narrative | Performed At | + + + | Ordered by an | | | unspecified provider. | | + + + documented in this encounter Visit Diagnoses + + | Diagnosis | + + | Essential hypertension - Primary Unspecified essential hypertension | + + | Pulmonary nodules Other nonspecific abnormal finding of lung field | + + | Panlobular emphysema (HCC) Other emphysema | + + documented in this encounter
--- OUTSIDE RECORDS SUMMARY | ~2019-09-01 | XMS | Encounter Summary ---
Demographics + + + | Address | [address] | | | [place] [address] | + + + | Home Phone | | + + + | Preferred Language | Unknown | + + + | Marital Status | | + + + | Muslim Affiliation | Unknown | + + + | Race | Unknown | + + + | Ethnic Group | Unknown | + + + Author + + + | Author | [facility] | | | and [place] | + + + | Organization | [facility] | | | and [...] Providers + +------+ + | Care Audio Visual Manager Name | Role | Phone | + +------+ + PCP | Unavailable | + +------+ + Encounter Details +--------+ + + + + | Date | Type | Department | Care Team | Description | +--------+ + + + + | 06/29/ | [facility] | [place] | Faith Rodríguez | | | 2017 | Encounter | [facility] | D, WIND TURBINE ELECTRICAL ENGINEER ONE | | | | | PRIMARY CARE [address] | [facility] | | | | | [facility], | [place] [address] | | | | | [place] [address] | [phone] | | | | | [phone] | | | +--------+ + + + [...]
--- OUTSIDE RECORDS SUMMARY | ~2019-09-01 | XMS | Encounter Summary ---
Demographics + + + | Address | [address] | | | [place] [address] | + + + | Home Phone | | + + + | Preferred Language | Unknown | + + + | Marital Status | | + + + | Baptism Affiliation | Unknown | + + + | Race | Unknown | + + + | Ethnic Group | Unknown | + + + Author + + + | Author | [facility] | | | and [place]obar[place] | + + + | Organization | [facility] | | | and [place] [...] Team Providers + +------+ + | Care Circulation Tender Name | Role | Phone | + +------+ + | Faith Rodríguez PATENT AGENT | PCP | | + +------+ + Encounter Details +--------+ + + + + | Date | Type | Department | Care Team | Description | +--------+ + + + + | 03/13/ | Documentati | [place] | Faith Rodríguez | | | 2018 | on | [facility] | D, PATENT AGENT ONE | | | | | PRIMARY CARE [address] | [facility] | | | | | [facility] [place] | [place] [address] | | | | | [place] [address] | [phone] | | | | | [phone] | | | +--------+ + + + [...] qty 120 Sent certified mail: [facility] [address] [place] [address] Dr. Brown [address] [place] [address] Tracking number: [id number] documented in this enco unter Plan of Treatment Not on filedocumented as of this encounter Visit Diagnoses Not on filedocumented in this encounter"
--- OUTSIDE RECORDS SUMMARY | ~2019-09-01 | XMS | Encounter Summary ---
Demographics + + + | Address | [address] | | | [place] [address] | + + + | Home Phone [...] Author | [facility] | | | and [place] | + + + | Organization | [facility] | [...] Team Providers + +------+ + | Care Pretzel Twister Name | Role | Phone | + +------+ + | Aric Palmer | PCP | | | LETTY | | | + +------+ + Encounter Details +--------+ + + + + | Date | Type | Department | Care Team | Description | +--------+ + + + + | 11/22/ | Documentati | [place] | Aric Palmer | | | 2019 | on | [facility] | LETTY [address] | | | | | PRIMARY CARE [address] | [facility], | | | | | [place] [employer] [facility], | [place] [address] | | | | | [place] [address] | [phone] | | | | | [phone] | | | +--------+ + + + [...] this encounter Progress Notes Rosalia Harmon - 11/22/2018 4:00 PM PSTHydrocodone 5-235 mg tab qty 112 Certified mailed to: Nyla Redmond [address] Brown [address] [place] [address] Tracing number: [id number] Received 11-28-18 by [place] mail clerk 5: 31 PM PSTdocumented in this encounter Plan of Treatment Not on filedocumented as of this encounter Visit Diagnoses Not on filedocumented in this encounter"
--- OUTSIDE RECORDS SUMMARY | ~2019-09-01 | XMS | Encounter Summary ---
Demographics + + + | Address | [address] | | | [place] [address] | + + + | Home Phone | | + + + | Preferred Language | Unknown | + + + | Marital Status | | + + + | Catholic Affiliation | Unknown | + + + | Race | Unknown | + + + | Ethnic Group | Unknown | + + + Author + + + | Author | [facility] | | | and [place] | + + + | Organization | [facility] | [...] Team Providers + +------+ + | Care Management Engineer Name | Role | Phone | + [...] Description | +--------+--------+ + + + | 06/04/ | Refill | [place] [facility] | Nate Rodríguezher | Medication Refill | | 2018 | | [facility] | D, GROUND MIXER ONE | | | | | [address] | [facility] | | | | | J[facility], | [place] [address] | | | | | [place] [address] | [phone] | | | | | [phone] | | | +--------+--------+ + + + [...]
--- OUTSIDE RECORDS SUMMARY | ~2019-09-01 | XMS | Encounter Summary ---
Demographics + + + | Address | [address] | | | [place] [address] | + + + | Home Phone | | + + + | Preferred Language | Unknown | + + + | Marital Status | | + + + | Orthodoxy Affiliation | Unknown | + + + | Race | Unknown | + + + | Ethnic Group | Unknown | + + + Author + + + | Author | [facility] | | | and [place] | + + + | Organization | [facility] | | | [...] Team Providers + +------+ + | Care Human Capital Consultant Name | Role | Phone | + +------+ + | Arci Palmer | PCP | | | LETTY [...] | [address] | JET [employer], | | | | | [place] [employer], | [place] [address] | | | | | [place] [address] | [phone] | | | | | [phone] | | | +--------+ + + + [...]
--- OUTSIDE RECORDS SUMMARY | ~2019-09-01 | XMS | Encounter Summary ---
Demographics + + + | Address | [address] | | | [place] [address] | + + + | Home Phone | | + + + | Preferred Language | Unknown | + + + | Marital Status | | + + + | Congregation Affiliation | Unknown | + + + | Race | Unknown | + + + | Ethnic Group | Unknown | + + + Author + + + | Author | [facility] | | | and [place] | + + + | Organization | [facility] | | | and [...] Team Providers + +------+ + | Care Railroad Dining Car Steward/Stewardess Name | Role | Phone | + [...] Medication Refill | | 2019 | | [facility] | [address] | | | | | [address] | [facility] [place], | | | | | JET [facility], [place], | [place] [address] | | | | | [place] [address] | [phone] | | | | | [phone] | | | +--------+--------+ + + + [...]
--- OUTSIDE RECORDS SUMMARY | ~2019-09-01 | XMS | Encounter Summary ---
Demographics + + + | Address | [address] | | | [place] [address] | + + + | Home Phone [...] | Author | [facility] | | | and [place] | + + + | Organization | [facility] | | | and [place] | [...] Team Providers + +------+ + | Care Rotary Soil Stabilizer Name | Role | Phone | + [...] Description | +--------+--------+ + + + | 08/27/ | Refill | [place] | Aric Palmer | Medication Refill | | 2019 | | [facility] | [address] | | | | | [address] | [facility], | | | | | [facility], | [place] [address] | | | | | [place] [address] | [phone] | | | | | [phone] | | | +--------+--------+ + + + [...]
--- OUTSIDE RECORDS SUMMARY | ~2019-09-01 | XMS | Encounter Summary ---
Demographics + + + | Address | [address] | | | [place] [address] | + + + | Home Phone [...] Author | [facility] | | | and [place] | + + + | Organization | [facility] | | | and [...] Team Providers + +------+ + | Care Water Treatment Plant Repairer Name | Role | Phone | + +------+ + PCP | Unavailable | + +------+ + Encounter Details +--------+ + + + + | Date | Type | Department | Care Team | Description | +--------+ + + + + | 06/13/ | [facility] | [place] | Faith Rodríguez | | | 2017 | Encounter | [facility] | D, TECHNICAL ADJUSTER ONE | | | | | [address] | [facility] | | | | | J[facility], | [place] [address] | | | | | [place] [address] | [phone] | | | | | [phone] | | | +--------+ + + + [...] +--------+ + + + | CBC WITH MANUAL | Routin | 06/13/2017 | | Results for this | | DIFFERENTIAL | e | 3:08 PM | | procedure are in the | | | | PDT | | results section. | + +--------+ + + + | PROTIME INR | Routin | 06/13/2017 | | Results for this | | | e | 3:08 PM | | procedure are in the | | | | PDT | | results section. | + +--------+ + + + | B TYPE NATRIURETIC | Routin | 06/13/2017 | | Results for this | | PEPTIDE | e | 3:08 PM | | procedure are in the | | | | PDT | | results section. | + +--------+ + + + | RENAL FUNCTION PANEL | Routin | 06/13/2017 | | Results for this | | | e | 3:08 PM | | procedure are in the | | | | PDT | | results section. | + +--------+ + + + documented in this encounter Results CBC with Manual Differential (06/13/2017 3:08 PM PDT) + + + + + + | Component | Value | Ref Range | Performed | Pathologist | | | | | At | Signature | + + + + + + | WBC | 6.4 | 4.6 - 10.5 | EXTERNAL | | | | | 1000/mm3 | LAB | | + + + + + + | RBC | 3.98 | 4.36 - 5.83 | EXTERNAL | | | | | mil/mm3 | LAB | | + + + + + + | HGB, | 13.9 | 13.1 - 17.4 | EXTERNAL | | | External | | g/dL | LAB | | + + + + + + | HCT, | 39.9 | 39.0 - 51.9 % | EXTERNAL | | | External | | | LAB | | + + + + + + | MCV | 100 | 82 - 96 fl | EXTERNAL | | | | | | LAB | | + + + + + + | MCH | 34.9 | 27.7 - 32.3 pg | EXTERNAL | | | | | | LAB | | + + + + + + | MCHC | 34.8 | 32.0 - 36.9 | EXTERNAL | | | | | g/dL | LAB | | + + + + + + | RDW-CV | 12.2 | <=17.0 % | EXTERNAL | | | | | | LAB | | + + + + + + | RDW-SD | 45.2 | 34.0 - 57.0 fL | EXTERNAL | | | | | | LAB | | + + + + + + | Platelet | 181 | 150 - 450 | EXTERNAL | | | Count | | 1000/mm3 | LAB | | | Plasma | | | | | + + + + + + | MPV | 10.2 | 9.4 - 12.4 FL | EXTERNAL | | | | | | LAB | | + + + + + + | % Segmented | 45 | 42 - 76 % | EXTERNAL | | | | | | LAB | | | Neutrophils | | | | | + + + + + + | LYMPH % | 37 | 20 - 40 % | EXTERNAL | | | | | | LAB | | + + + + + + | Atypical | 9 | <=5 % | EXTERNAL | | | Lymphocytes | | | LAB | | | Manual | | | | | + + + + + + | % Monocytes | 8 | 3 - 13 % | EXTERNAL | | | | | | LAB | | + + + + + + | % | 1 | <=7 % | EXTERNAL | | | Eosinophils | | | LAB | | + + + + + + | % nRBC | 0 | 0.0 - 0.2 /100 | EXTERNAL | | | | | WBC | LAB | | + + + + + + | Absolute | 3.46 | 2.80 - 7.70 | EXTERNAL | | | Neutrophils | | 1000/mm3 | LAB | | + + + + + + | Absolute | 2.32 | 1.20 - 3.30 | EXTERNAL | | | Lymphocytes | | 1000/mm3 | LAB | | + + + + + + | Absolute | 0.47 | 0.00 - 0.80 | EXTERNAL | | | Monocytes | | 1000/mm3 | LAB | | + + + + + + | Absolute | 0.12 | 0.00 - 0.70 | EXTERNAL | | | Eosinophils | | 1000/mm3 | LAB | | + + + + + + | Absolute | 0.03 | 0.00 - 0.20 | EXTERNAL | | | Basophils | | 1000/mm3 | LAB | | + + + + + + | Absolute | 0.01 | 0.00 - 0.01 | EXTERNAL | | | nRBC | | 1000/mm3 | LAB | | + + + + + + | Absolute | 0.03 | 0.00 - 0.15 | EXTERNAL | | | Immature | | 1000/mm3 | LAB | | | Granulocyte | | | | | | s | | | | | + + + + + + | RBC | FEW(<10%) | | EXTERNAL | | | Macrocytes | | | LAB | | + + + + + + | PLT, | NORMAL | | EXTERNAL | | | External | | | LAB | | + + + + + + | Platelet | NORMAL | NORMAL | EXTERNAL | | | Morphology | | | LAB | | + + + + + + + + | Specimen | + + | | + + + +---------+ + + | Performing | Address | City/State/Zipcode | Phone Number | | Organization | | | | + +---------+ + + | EXTERNAL LAB | | | | + +---------+ + + Protime INR (06/13/2017 3:08 PM PDT) + +-------+ + + + | Component | Value | Ref Range | Performed | Pathologist | | | | | At | Signature | + +-------+ + + + | Prothrombin | 14.3 | 12.3 - 14.1 SEC | EXTERNAL | | | Time | | | LAB | | + +-------+ + + + | INR | 1.09 | | EXTERNAL | | | | | | LAB | | + +-------+ + + + + + | Specimen | + + | | + + + +---------+ + + | Performing | Address | City/State/Zipcode | Phone Number | | Organization | | | | + +---------+ + + | EXTERNAL LAB | | | | + +---------+ + + B Type Natriuretic Peptide (06/13/2017 3:08 PM PDT) + +-------+ + + + | Component | Value | Ref Range | Performed | Pathologist | | | | | At | Signature | + +-------+ + + + | NT-proBNP | 259 | <=229 pg/mL | EXTERNAL | | | | | | LAB | | + +-------+ + + + + + | Specimen | + + | | + + + +---------+ + + | Performing | Address | City/State/Zipcode | Phone Number | | Organization | | | | + +---------+ + + | EXTERNAL LAB | | | | + +---------+ + + Renal Function Panel (06/13/2017 3:08 PM PDT) + +-------+ + + + | Component | Value | Ref Range | Performed | Pathologist | | | | | At | Signature | + +-------+ + + + | Sodium | 137 | 132 - 143 | EXTERNAL | | | | | mmol/L | LAB | | + +-------+ + + + | Potassium | 3.5 | 3.3 - 4.9 | EXTERNAL | | | | | mmol/L | LAB | | + +-------+ + + + | Cl | 102 | 95 - 108 mmol/L | EXTERNAL | | | | | | LAB | | + +-------+ + + + | CO2 | 27 | 23 - 34 mmol/L | EXTERNAL [...] +-------+ + + + | Glucose | 100 | 70 - 110 mg/dL | EXTERNAL | | | | | | LAB | | + +-------+ + + + | BUN, Bld | 21 | 5 - 26 mg/dL | EXTERNAL | | | | | | LAB | | + +-------+ + + + | Creatinine | 0.95 | 0.70 - 1.40 | EXTERNAL | | | | | mg/dL | LAB | | + +-------+ + + + | BUN/Creatin | 22.1 | 7.0 - 24.0 | EXTERNAL | | | ine Ratio | | RATIO | LAB | | + +-------+ + + + | GFR | 60 | >=60 | EXTERNAL | | | ESTIMATE | | mL/min/1.73m2 | LAB | | + +-------+ + + + | Albumin | 3.8 | 3.0 - 4.5 g/dL | EXTERNAL | | | | | | LAB | | + +-------+ + + + | Phosphorus | 2.4 | 2.5 - 4.9 mg/dL | EXTERNAL | | | | [...]
--- OUTSIDE RECORDS SUMMARY | ~2019-09-01 | XMS | Encounter Summary ---
Demographics + + + | Address | [address] | | | [place] [address] | + + + | Home Phone | | + + + | Preferred Language | Unknown | + + + | Marital Status | | + + + | Worship Affiliation | Unknown | + + + | Race | Unknown | + + + | Ethnic Group | Unknown | + + + Author + + + | Author | [facility] | | | and [place] | + + + | Organization | [facility] [...] Team Providers + +------+ + | Care General Repair Mechanic Name | Role | Phone | [...] Description | +--------+--------+ + + + | 07/01/ | Refill | [place] | Aric Palmer | Medication Refill | | 2019 | | [facility] | [address] | | | | | [address] | [facility], | | | | | [facility], | [place] [address] | | | | | [place] [address] | [phone] | | | | | [phone] | | | +--------+--------+ + + + [...]
--- OUTSIDE RECORDS SUMMARY | ~2019-09-01 | XMS | Encounter Summary ---
Demographics + + + | Address | [address] | | | [place] [address] | + + + | Home Phone | | + + + | Preferred Language | Unknown | + + + | Marital Status | | + + + | Tenriism Affiliation | Unknown | + + + | Race | Unknown | + + + | Ethnic Group | Unknown | + + + Author + + + | Author | [facility] | | | and [place] | + + + | Organization | [facility] | | | and [place] [...] Team Providers + +------+ + | Care Game Design Instructor Name | Role | Phone | + +------+ + | Aric Palmer | PCP | | | PA-C | | | + +------+ + Reason for Visit + + + | Reason | Comments | + + + | Hypertension | Continued management, lisinopril dose change | + + + | Chronic Pain | Pain management [place] 5/325 | + + + Encounter Details +--------+---------+ + + + | Date | Type | Department | Care Team | Description | +--------+---------+ + + + | 06/12/ | Office | [place] | Aric Palmer | Chronic midline low | | 2019 | Visit | [facility] | [address] | back pain with | | | | PR[address] | [place] [employer], | bilateral sciatica; | | | | [place] [employer], | [place] [address] | Essential | | | | [place] [address] | [phone] | hypertension | | | | [phone] | | | +--------+---------+ + + + Social History [...] + + + | Blood Pressure | 116/60 | 06/12/2019 2:57 PM | | | | | PDT | | + + + + + | Pulse | 77 | 06/12/2019 2:57 PM | | | | | PDT | | + + + + + | Temperature | - | - | | + + + + + | Respiratory Rate | 16 | 06/12/2019 2:57 PM | | | | | PDT | | + + + + + | Oxygen Saturation | 93% | 06/12/2019 2:57 PM | | | | | PDT | | + + + + + | Inhaled Oxygen | - | - | | | Concentration | | | | + + + + + | Weight | 58.1 kg (128 lb) | 06/12/2019 2:57 PM | | | | | PDT | | + + + + + | Height | 175.3 cm (5' 9") | 06/12/2019 2:57 PM | | | | | PDT | | + + + + + | Body Mass Index | 18.9 | 06/12/2019 2:57 PM | | | | | PDT | | + + + + + documented in this encounter Progress Notes Aric Palmer PA-C - 06/12/2019 2:45 PM PDTFormatting of this note might be di fferent from the original. Patient ID: Saturnino [place] is a 74 y.o. year old male Chief Complaint Patient presents with Hypertension Continued management, lisinopril dose change Chronic Pain Pain management [place] 5/325 Assessment and Plan: Chronic low back pain 3 prescriptions of [place] printed and sent to [facility]. Pain exacerbated with more physical activity yesterday. 30 mg Toradol IM offered; pt consented and tolerated the IM inj well. Continue with Gabapentin as directed. UDS from 05/08/19 reviewed and was consistent with the prescribed hydrocodone. PDMP reviewed and is consistent. No pills available to count today. Pt reminded to bring in his pills for the required count . Urine sample for UDS collected today. Hypertension BP is optimized. No change in treatment indicated at today's visit. Lisinopril 20 mg qd and Prazosin 2 mg BID will be continued. Subjective: Saturnino Avila is a , cigarette-smoking, very thin, alert and oriented 73-year-old wh ite male who presents to the [facility] for continued chronic pain management of lumbar a nd cervical degeneration. His current chronic pain management plan consists of [place] 5//25 2 tablets twice a day, Flexeril 10 mg up to 3 times a day, and gabapentin 900 mg 3 times a day. A review of Saturnino's urinary drug screens show that he is consistent with his prescribe d opioid medication. He receives his medications from the [facility]. Maxi d is reporting an increase of his low back pain secondary to an increase of walking/ activit y yesterday and appears in moderate distress. Saturnino continues to smoke cigarettes and is NOT interested in quitting at this time. At last visit Saturnino's BP was low and an adjustment to his Lisinopril was made. He is now t aking 20 mg Lisinopril and he denies any CP, SOB, BANUELOS, pedal edema. His BP was improved at 116/60 today. The Lisinopril 20 mg will be continued. Allergies Allergen Reactions Aspirin Nausea Only and Swelling Bee Venom Anaphylaxis Soap & Cleansers Swelling Rash/swelling Uncoded Nonscreenable Allergen [place], patient states he gets red spots and [...] 2-TERRI) 0.3 mg/0.3 mL injection Inject 0.3 mLs into th e muscle as needed for Anaphylaxis. Indications: Life-Threatening Hypersensitivity Reaction 2 each 1 fish oil 1,000 mg capsule Take 2 [...] cancer Father Review of Systems Constitutional: Negative. HENT: Negative. Eyes: Negative. Respiratory: Negative. Negative for cough and shortness of breath. Cardiovascular: Negative. Negative for chest pain, palpitations and leg swelling. Gastrointestinal: Negative. Negative for constipation. Endocrine: Negative. Genitourinary: Negative. Negative for difficulty urinating. Musculoskeletal: Positive for arthralgias, back pain and gait problem. Skin: Negative. Neurological: Positive for weakness and numbness. Hematological: Negative. Psychiatric/Behavioral: Negative. Objective: Vitals: BP 116/60 | Pulse 77 | Resp 16 | Ht 1.753 m (5' 9") | Wt 58.1 kg (128 lb) | SpO2 93% | BMI 18.90 kg/m Physical Exam Constitutional: He is oriented to person, place, and time. No distress. Cardiovascular: Normal rate. Pulmonary/Chest: Effort normal. No respiratory distress. Abdominal: Soft. He exhibits no distension. There is no tenderness. Musculoskeletal: He exhibits tenderness. Lumbar back: He exhibits decreased range of motion, tenderness, bony tenderness, pain and spasm. Neurological: He is alert and oriented to person, place, and time. Skin: Skin is warm and dry. Psychiatric: He has a normal mood and affect. Recent Results (from the past 1008 hour(s)) Drugs of Abuse, Panel, Pain Management 1 Collection Time: 05/08/19 16:15 Result Value Ref Range Creatinine 254.9 >=20.0 mg/dL pH, Urine 5.8 4.5 - 9.0 Oxidants Screen, Urine NEGATIVE <200 mcg/mL Amphetamine Screen, Urine NEGATIVE <500 ng/mL Amphetamines medMATCH CONSISTENT Barbiturates Screen, Urine NEGATIVE <300 ng/mL Barbiturates medMATCH CONSISTENT Benzodiazepines Screen, Urine NEGATIVE CONFIRMED <100 ng/mL ALPHA-HYDROXYALPRAZOLAM.UR.QN (REF) NEGATIVE <25 ng/mL aOH alprazolam medMATCH CONSISTENT ALPHAHYDROXYMIDAZOLAM.URINE.CONFIRM (REF) NEGATIVE <50 ng/mL aOH midazolam medMATCH CONSISTENT ALPHA-HYDROXYTRIAZOLAM.URINE.CONFIRM (REF) NEGATIVE <50 ng/mL aOH triazolam medMATCH CONSISTENT AMINOCLONAZEPAM.URINE.CONFIRM (REF) NEGATIVE <25 ng/mL Aminoclonazepam medMATCH CONSISTENT 2-HYDROXYETHYLFLURAZEPAM UR QT NEGATIVE <50 ng/mL OH, Et flurazepam medMATCH CONSISTENT Lorazepam Confirm, Urine NEGATIVE <50 ng/mL Lorazepam medMATCH CONSISTENT Nordiazepam, Urine, Conf NEGATIVE <50 ng/mL Nordiazepam medMATCH CONSISTENT Oxazepam Confirm, Urine NEGATIVE <50 ng/mL Oxazepam medMATCH CONSISTENT Temazepam Confirm, Urine NEGATIVE <50 ng/mL Temazepam medMATCH CONSISTENT Marijuana Metabolite NEGATIVE <20 ng/mL Marijuana Metab medMATCH CONSISTENT Cocaine Metabolite NEGATIVE <150 ng/mL Cocaine Metab medMATCH CONSISTENT Methadone Screen, Urine NEGATIVE <100 ng/mL Methadone Metab medMATCH CONSISTENT Opiates POSITIVE (A) <100 ng/mL Codeine Confirm, Urine NEGATIVE <50 ng/mL Codeine medMATCH CONSISTENT Hydrocodone Confirm, Urine 323 (H) <50 ng/mL Hydrocodone medMATCH INCONSISTENT Hydromorphone, Confirm, Urine 267 (H) <50 ng/mL Hydromorphone medMATCH INCONSISTENT See Note 1 Morphine Confirm, Urine NEGATIVE <50 ng/mL Morphine medMATCH CONSISTENT See Note 2 Norhydrocodone Confirm, Urine 1911 (H) <50 ng/mL Norhydrocodone medMATCH See Note 3 Oxycodone, UR NEGATIVE <100 ng/mL Oxycodone medMATCH CONSISTENT Phencyclidine, Screen, Urine NEGATIVE <25 ng/mL Phencyclidine medMATCH CONSISTENT Here for HTN follow up and back pain 06/01. Need Pen , need new Rx. Aric Palmer PA-C This note was transcribed using voice recognition software; there may be speech recognition which escaped detection during proofreading. Electronically signed by: Aric Palmer PA-C 06/12/2019 16:13 documented in this encounter Plan of Treatment Not on filedocumented as of this encounter Procedures + +--------+ + + + | Procedure Name | Priori | Date/Time | Associated Diagnosis | Comments | | | ty | | | | + +--------+ + + + | EXTERNAL LAB: | Routin | 05/08/2018 | | Results for this | | HEPATITIS C AB | e | | | procedure are in the | | | | | | results section. | + +--------+ + + + documented in this encounter Results External Lab: Hepatitis C Ab (05/08/2018) + + + + + + | Component | Value | Ref Range | Performed | Pathologist | | | | | At | Signature | + + + + + + | HCV, | Non-Reactive | Non-Reactive | | | | External | | | | | + + + + + + documented in this encounter Visit Diagnoses + + | Diagnosis | + + | Chronic midline low back pain with bilateral sciatica | + + | Essential hypertension Unspecified essential hypertension | + + documented in this encounter
--- OUTSIDE RECORDS SUMMARY | ~2019-09-01 | XMS | Encounter Summary ---
Demographics + + + | Address | [address] | | | [place] [address] | + + + | Home Phone | | + + + | Preferred Language | Unknown | + + + | Marital Status | | + + + | Hinduism Affiliation | Unknown | + + + | Race | Unknown | + + + | Ethnic Group | Unknown | + + + Author + + + | Author | [facility] | | | and [place]obar[place] | + + + | Organization | [facility] | | | and [place] [...] Team Providers + +------+ + | Care Inventory Control Analyst Name | Role | Phone | + +------+ + | Faith Rodríguez POWDERED METAL SUPERVISOR | PCP | | + +------+ + [...] | | | | artery | MD Brednan | [address] | | | | | disease, | [address] | [place], | | | | | angina | [place] | [place] | | | | | presence | [place], [place] | [address] | | | | | unspecified, | [address] | Phone: | | | | | unspecified | Phone: | [phone] | | | | | vessel or | [phone] | Fax: | | | | | lesion type, | Fax: | [phone] | | | | | unspecified | [phone] | | | | | | whether | | | | | | | hughes or | | | | | | [...] | | | | | | STUDIES [place] | | | | | | | CV STRS TST | | | | | | | XERS&/OR RX | | | | | | | CONT ECG W/O | | | | | | | I&R [place] | | | | | | | [...] Closed | | Radiology | Diagnoses | Max[place], | [facility] | | | | | Coronary | Deangelo | Medicine | | | | | artery | MD Brendan | [address] | | | | | disease, | [address] | [place], | | | | | angina | [place] | [place] | | | | | presence | [place], [place] | [address] | | | | | unspecified, | [address] | Phone: | | | | | unspecified | Phone: | [phone] | | | | | vessel or | [phone] | Fax: | | | | | lesion type, | Fax: | [phone] | | | | | unspecified | [phone] | | | | | | whether | | | | | | | hughes or | | | | | | [...] | | | | | | [place]UDIES [place] | | | | | | | CV STRS TST | | | | | | | XERS&/OR RX | | | | | | | CONT ECG W/O | | | | | | | I&R [place] | | | | | | | [...] | +--------+ + + + + | 01/02/ | Hospital | [facility] | Deangelo Little | Coronary artery | | 2018 | Encounter | MED CTR NUCLEAR | MD Brendan [address] | disease, angina | | | | MEDICINE [address] [place] | presence | | | | [place], | [place] [address] | unspecified, | | | | [place] [address] | [phone] | unspecified vessel | | | | [phone] | | or lesion type, | | | | | Compressed Air Pile Driver Operator, [facility] | unspecified whether | | | | | | hughes or | | | | | | [...] | | | | | failure type (HCC) | +--------+ + + + + Social [...] Calcium | Take 2 tablets by | | 0 | | | | Carb-Cholecalciferol | mouth Daily. | | | | 8 | | (CALCIUM 500 +D) | | [...] tablet by | 180 | 3 | 10/12/20 | | | 6.25 mg tablet | mouth 2 times daily | tablet | | 17 | 8 | | | (with breakfast & | | | | | | | dinner). | | | | | + + + +---------+ + + | clopidogrel | Take 1 tablet by | 90 | 3 | 10/12/20 | | | (PLAVIX) 75 mg | mouth Daily. | tablet | | 17 | 8 | | tablet | | | | | | + + + +---------+ + + | cyclobenzaprine | Take 10 mg [...] | | 8 | + + + +---------+ + + | gabapentin | Take 900 mg by mouth | | 0 | | | | (NEURONTIN) 300 mg | 3 times daily. | | | | 8 | | capsule | | | | | | + + + +---------+ + + | | Take 2 tablets by | 120 | 0 | 01/20/20 | | | HYDROcodone-acetamin | mouth 2 times daily. | tablet | | 18 | 8 | | ophen (NORCO) 5-325 | | | | | | | mg per | | | | | | | tabletIndications: | | | | | | | Other osteoarthritis | | | | | | | of spine, lumbar | | | | | | | region | | | | | | + + + +---------+ + + | lisinopril | Take 40 mg [...] mouth | 60 Can | 11 | 11/20/19 | | | Supplements (ENSURE | 2 times daily. | | | 18 | 8 | | PLUS HN) | | | | | | | LIQDIndications: | | | | | | | Weight loss | | | | | | + + + +---------+ + + | nystatin | Swish and swallow 5 | 473 mL | 0 | 12/12/19 | | | (MYCOSTATIN) 100,000 | ml four times daily | | | 18 | 8 | | units/mL | up to 48 [...] omeprazole | Take 1 capsule by | 60 | 2 | 11/22/19 | | | (PRILOSEC) 20 mg | mouth 2 times daily. | capsule | | 18 | 8 | | capsuleIndications: | | | | | | | Gastroesophageal | | | | | | | reflux disease, | | | | | | | esophagitis presence | | | | | | | not specified | | | | | | + + + +---------+ + + | prazosin | Take 1 capsule by | 60 | 11 | 10/11/20 | | | (MINIPRESS) 2 MG | mouth 2 times daily. | capsule | | 17 | 8 | | capsuleIndications: | | | | [...] puffs into | 1 | 2 | 11/07/19 | | | tiotropium-olodatero | the lungs Daily. | Inhaler | | 18 | 8 | | l (STIOLTO RESPIMAT) | | | | | | | 2.5-2.5 mcg/puff | | | | | | | inhalerIndications: | | | | | | | Chronic obstructive | | | | | | | pulmonary disease, | | | | | | | unspecified COPD | | | | | | | type ([facility]) | | | | | | + + + +---------+ + + | traZODone | Take 1 tablet by | 30 | 0 | 11/13/19 | | | (DESYREL) 100 mg | mouth nightly. Take | tablet | | 18 | 8 | | tablet | 2 tablets at [...] | + +--------+ + + + | NM NUCLEAR STRESS | Routin | 01/02/2018 | Coronary artery | Results for this | | TEST (PHARMACOLOGIC | e | 2:04 PM | disease, angina | procedure are in the | | - VASODILATOR) | | PDT | presence | results section. | | | | | unspecified, | | | | | | unspecified vessel | | | | | | or lesion type, | | | | | | unspecified whether | | | | | | hughes or | | | | | | transplanted heart | | | | | | Congestive heart | | | | | | failure, unspecified | | | | | | congestive heart | | | | | | failure chronicity, | | | | | | unspecified | | | | | | congestive heart | | | | | | failure type (HCC) | | + +--------+ + + + [...] | | | 46%. Signed by: Kya Little MD PhD [facility] | | | 01/02/2018, 14:05 | | + + + + + --+ | Narrative | Performed At | + + --+ | | [facility] | | NUCLEAR MEDICINE STRESS TEST [...] + | Diagnosis | + + | Coronary artery disease, angina presence unspecified, unspecified vessel or lesion | | type, unspecified whether hughes or transplanted heart | + + | Congestive heart failure, unspecified congestive heart failure chronicity, unspecified | | congestive heart failure type | + + documented in this encounter Administered Medications + +--------+ +--------+------+------+ | Medication Order | MAR | Action | Dose | Rate | Site | | | Action | Date | | | | + +--------+ +--------+------+------+ | regadenoson (LEXISCAN) | Given | 01/03/20 | 0.4 mg | | | | injection 0.4 mg 0.4 mg, | | 18 1:25 | | | | | Intravenous, ONCE PRN, protocol, | | PM PDT | | | | | Starting [facility] 01/02/18 at 0923, For | | | | | | | 1 dose, Give IV push over 10 | | | | | | | seconds, then follow immediately | | | | | | | with 5 mL saline flush., Nuclear | | | | | | | Medicine | | | | | | + +--------+ +--------+------+------+ +---+---+ | | | +---+---+ + +-------+ + +---+---+ | technetium TC-99M sestamibi | Given | 01/03/20 | 10.76 | | | | (CARDIOLITE) injection 10.76 | | 18 1:25 | millicur | | | | millicurie 10.76 millicurie, | | PM PDT | ies | | | | Intravenous, ONCE PRN, Other, | | | | | | | Starting [facility] 01/02/18 at 0923, For | | | | | | | 1 dose, Nuclear Medicine | | | | | | + +-------+ + +---+---+ +---+---+ | | | +---+---+ documented in this encounter"
--- OUTSIDE RECORDS SUMMARY | ~2019-09-01 | XMS | Encounter Summary ---
Demographics + + + | Address | [address] | | | [place] [address] | + + + | Home Phone | | + + + | Preferred Language | Unknown | + + + | Marital Status | | + + + | Advent Affiliation | Unknown | + + + | Race | Unknown | + + + | Ethnic Group | Unknown | + + + Author + + + | Author | [facility] | | | and [place] | + + + | Organization | [facility] | | | and [place] [...] Team Providers + +------+ + | Care High Density Finishing Operator Name | Role | Phone | [...] | HOSPITAL THERAPY PT | MD Jody [address] | | | | | [address] | [address] | | | | | [place] | [place] [address] | | | | | [address] | [phone] | | | | | [phone] | | | +--------+ + + + [...]
--- OUTSIDE RECORDS SUMMARY | ~2019-09-01 | XMS | Encounter Summary ---
Demographics + + + | Address | [address] | | | [place] [address] | + + + | Home Phone | | + + + | Preferred Language | Unknown | + + + | Marital Status | | + + + | Holiness Affiliation | Unknown | + + + | Race | Unknown | + + + | Ethnic Group | Unknown | + + + Author + + + | Author | [facility] | | | and [place] | + + + | Organization | [facility] | | [...] Team Providers + +------+ + | Care Web Feeder Name | Role | Phone | + [...] + + + + | 11/20/ | Telephone | [place] | Faith Rodríguez | Medication Refill | | 2017 | | [facility] | D, SPINNER CONTINUOUS ONE | | | | | PRIMARY CARE [address] | [facility] | | | | | JET [facility], | [place] [address] | | | | | [place] [address] | [phone] | | | | | [phone] | | | +--------+ + + + [...] Diagnosis | + + | Weight loss - Primary Loss of weight | + + documented in this encounter"
--- OUTSIDE RECORDS SUMMARY | ~2019-09-01 | XMS | Encounter Summary ---
Demographics + + + | Address | [address] | | | [place] [address] | + + + | Home Phone | | + + + | Preferred Language | Unknown | + + + | Marital Status | | + + + | Worship Affiliation | Unknown | + + + | Race | Unknown | + + + | Ethnic Group | Unknown | + + + Author + + + | Author | [facility] | | | and [place] | + + + | Organization | [facility] | | | and [...] Team Providers + +------+ + | Care Linen Worker Name | Role | Phone | + +------+ + | Aric Palmer | PCP | | | PA-C | | | + +------+ + Reason for Visit + + + | Reason | Comments | + + + | Hypertension | Continued management, lisinopril dose change | + + + | Chronic Pain | Pain management [place] 5/325 | + + + Encounter Details [...] | PRIMARY CARE [address] | [place], | bilateral sciatica; | | | | [place], | [place] [address] | Essential | | | | [place] [address] | [phone] | hypertension | | | | [phone] | | | +--------+---------+ + + + [...] lisinopril dose change Chronic Pain Pain management [place] 5/325 Assessment and Plan: Chronic low back pain 3 prescriptions of [place] printed and sent to [facility]. Pain exacerbated with more physical activity yesterday. [...] wh ite male who presents to the [facility] for continued chronic pain management of lumbar a nd cervical degeneration. His current chronic pain management plan consists of [place] 5//25 2 tablets twice a day, Flexeril 10 mg up to 3 times a day, and gabapentin 900 mg 3 times a day. A review of Saturnino's urinary drug screens show that he is consistent with his prescribe d opioid medication. He receives his medications from the [facility]. Maxi d is reporting an increase of [...] & Cleansers Swelling Rash/swelling Uncoded Nonscreenable Allergen [place], patient states he gets red spots and [...]
--- OUTSIDE RECORDS SUMMARY | ~2019-09-01 | XMS | Encounter Summary ---
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[address] | | | | | myocardial | [address] | [place] | | | | | infarction | [place] | [place] | | | | | Procedures | [place], | [address] | | | | | ECHO | [place] [address] | Phone: | | | | | Complete [place] | Phone: | [phone] | | | | | ECHO HEART | [phone] | Fax: | | | | | [place] | Fax: | [phone] | | | | | MPLETE W | [phone] | | | | | | DOPPLER MS | | | | | | | [...] | | | Pulmonary | Jcarlos | [facility] | | | | | nodules | MD Nitin | IM[address]ING [address] | | | | | Tobacco | [address] | | | | | dependence | [place] | [place], [place] | | | | | Procedures | [place], | [address] | | | | | PET [place] Skull | [place] [address] | Phone: | | | | | Base To Mid | Phone: | [phone] | | | | | Thigh | [phone] | Fax: | | | | | | Fax: | [phone] | | | | | | [phone] | | +--------+--------+ + + + + [...] | | | | | obstructive | JET OPERATOR ONE | MD Nitin | | | | | pulmonary | [place] | [address] [place] [address] | | | | | disease, | [place] [place] | [place] | | | | | unspecified | [place], [place] | [place], [place] | | | | | (HCC) Other | [address] | [address] Phone: | | | | | disorders | Phone: | [phone] | | | | | of lung | [phone] | Fax: | | | | | Procedures | Fax: | [phone] | | | | | OUT PT VISIT | [phone] | | | | | | NEW [...] | (Primary Dx); | | | | [address], | [address] [place] | Centrilobular | | | | [place] [address] | [place] [address] | emphysema (HCC); | | | | [phone] | [phone] | Chronic obstructive | | | | [...]
--- OUTSIDE RECORDS SUMMARY | ~2019-09-01 | XMS | Encounter Summary ---
Demographics + + + | Address | [address] | | | [place] [address] | + + + | Home Phone | | + + + | Preferred Language | Unknown | + + + | Marital Status | | + + + | Sabianism Affiliation | Unknown | + + + | Race | Unknown | + + + | Ethnic Group | Unknown | + + + Author + + + | Author | [facility] | | | and [place] | + + + | Organization | [facility] | | | and [place] | [...] Team Providers + +------+ + | Care Hide Measuring Machine Operator Name | Role | Phone [...] Essential | | 2017 | Visit | [facility] | D, MARINE ANIMAL TRAINER 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 Acupuncture Acupuncture is a [id number]-[id number] practice. Practitioners insert thin needles in specific part s of the body. Research shows that it can help to relieve the pain of arthritis. For more information or to find a practitioner in your area, contact the [employer] o [employer]upuncture. Its website [...] biofeedback, stress management, and hypnosis. Ask your [facility] provider for more information about these therapies. For more information about many of these methods, contact the National Center for [facility] tary and Alternative Medicine (NCCAM) at http://www.[facility].nih.gov. Date Last Reviewed: 12/06/201519995640-2576 [employer]. [address] [place] [address], [place] [address]. All righ ts reserved. This information is [...] quit within a month, and do it. Warrior to your quit plan Talk to your [...] Track your triggers What gives you that V-ckoe-y-cigarette feeling? List all the situations that make [...] wants to stop smoking. Date Last Reviewed: 04/22/201619996753-3706 [employer]. [address] [place] [address], [place] [address]. All righ ts reserved. This information is [...] car. Draw. Do a puzzle. Build a Brickflow. Delay. The urge to smoke lasts only [...] nicot ine replacement products. They are available xmzr-wtx-wberakb or by prescription. Ask your ealtare provider if any of these could help you quit smoking. For more information https://smokefree.gov/flep-iy-tm-expert National [employer] Smoking Quitline: 972-37L-GILT (198-509-7174) Date Last Reviewed: 11/23/201619991285-4075 [employer]. [address] [place] [address]. All [facility] ts reserved. This information is not intended as a substitute for professional medical care. Always follow your healthcare professional's instructions. documented in this encounter Progress Notes Faith Rodríguez NP - 10/11/2017 1:00 PM PST APSO PROGRESS NOTE Pt. Name/Age/: Saturnino [place] 72 y.o. 1945 Med. Record Number: [id number] Assessment and Plan: 1. Essential hypertension - [...] g nodules. He will be going to [place] tomorrow to the vascular specialist, Dr. Little. [...] cessation. Referral will be placed through the [place]. He is not using the albuterol often [...] Material Risk Notice Narcotic Controlled Substances - [place] 'Intractable pain' means that you have a [...] get refills of medicine(s) from: [facility] [place] [address] Goals and Alternatives Your goals from therapy [...] medications for chronic hans n conditions from [facility]. If I prescribe these medications for [...] provider or covering doctor 48 hours in [facility] and during business hours. I [...] be reliably predicted. 8. TOLERANCE - with extermination supervisor use, an increased amount of the same [...] stress at this time: yes, trips to [place] and roommate's mental state History of emotional [...] BATSE | | | | | | CAMPOS [...] Diagnostics | | | | | | [facility] | | | | | | Keturah Grissom M.D., | | | | | | , Laboratory | | | | | | Director [address] | | | | | | [facility] | | | | | | [place] [address] | | | | | | CLIA #[id number] | | | | + + + [...] + + + | REFERENCE LAB | [address] [facility] | [place], [place] | | | [facility] - | | [address] | | | [place] | | [...]
--- OUTSIDE RECORDS SUMMARY | ~2019-09-01 | XMS | Encounter Summary ---
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 Continue [place] 5/325 2 tabs BID through [facility]. 3 prescriptions of #120 provided today. Will [...] current chronic pain management plan consists of [place] 5/3/25 2 tablets twice a day, Flex eril 10 mg up to 3 times a day, and gabapentin 900 mg 3 times a day. A review of Saturnino's ur inary drug screens show that he is consistent with his prescribed opioid medication. He rec eives his medications from the [facility]. Allergies: Allergies Allergen Reactions Aspirin Nausea Only and Swelling Bee Venom Anaphylaxis Soap & Cleansers Swelling Rash/swelling Uncoded Nonscreenable Allergen [place], patient states he gets red spots and [...] AM PDTPatient did not zander ng in [place] but reports he script just came in the mail from the [place]. Patient reports pain is 4 out of [...] + + | [place] [facility] | [address] | [place] [address] | [phone] | | HOSPITAL LABORATORY | | | [...] + + | [place] [facility] | [address] | [place] [address] | [phone] | | HOSPITAL LABORATORY | | | [...] | [facility] | | | | mg/dL [id number] - | | HOSPITAL | | | | 129 mg/dL Near | | LABORATORY | | | | [id number] - 159 mg/dL | | | | | | [id number] - 189 | | | | | [...] + + | [place] [facility] | [address] | [place] [address] | [phone] | | HOSPITAL LABORATORY | | | [...] | mL/min/1.73m2 | [facility] | | | [place]TH [place]OREAN | RATE,ESTIMATED | | HOSPITAL | | | | mL/min/1.53d8Qcqr than | | LABORATORY | | | [...] 7.0 | 6.6 - 8.5 g/dL | [place] | | | Protein | | | [...] + + | [place] [facility] | [address] | [place] [address] | [phone] | | HOSPITAL LABORATORY | | | [...] + + | [place] [facility] | [address] | [place] [address] | [phone] | | HOSPITAL LABORATORY | | | | + + + + + Drugs of Abuse, Panel, Pain Management 1 (02/13/2019 10:45 AM PDT) + + + + + + | Component | Value | Ref Range | Performed | Pathologist | | | | | At | Signature | + + + + + + | Prescribed | [place](TM) | | REFERENCE | | | Drug [...] Diagnostics | | | | | | [facility] | | | | | | [place]. [...] Diagnostics | | | | | | [facility] | | | | | | Kathia Pastor M.D., | | | | | | Ph.D., Laboratory | | | | | | Director [address] | | | | | | [facility] | | | | | | [place] [address] | | | | | | OBINNA #[id number] | | | | + + + + + + + + | Specimen | + + | Urine | + + + + + + + | Performing | Address | City/State/Zipcode | Phone Number | | Organization | | | | + + + + + | REFERENCE LAB | [address] [facility] | [place] | | | [facility] - | | [address] | | | [place] | | [...]
--- OUTSIDE RECORDS SUMMARY | ~2019-09-01 | XMS | Encounter Summary ---
Demographics + + + | Address | [address] | | | [place] [address] | + + + | Home Phone [...] | Author | [facility] | | | and [place] | + + + | Organization | [facility] [...] Team Providers + +------+ + | Care Jackhammer Splitter Operator Name | Role | Phone | [...] [address] | | | | | [place], | [address] [place] | | | | | [place] [address] | [place] [address] | | | | | [phone] | [phone] | | | | | | | [...]
--- OUTSIDE RECORDS SUMMARY | ~2019-09-01 | XMS | Encounter Summary ---
Demographics + + + | Address | [address] | | | [place] [address] | + + + | Home Phone | | + + + | Preferred Language | Unknown | + + + | Marital Status | | + + + | Congregational Affiliation | Unknown | + + + | Race | Unknown | + + + | Ethnic Group | Unknown | + + + Author + + + | Author | [facility] | | | and [place]obar[place] | + + + | Organization | [facility] | | | [...] Team Providers + +------+ + | Care Furniture Shampooer Name | Role | Phone | + +------+ + | Aric Palmer | PCP | | | PA-C | | | + +------+ + Reason for Visit + + + | Reason | Comments | + + + | Hypertension | Continued management, lisinopril dose change | + + + | Chronic Pain | Pain management [place] 5/325 | + + + Encounter Details [...] | PRIMARY CARE [address] | [facility], | bilateral sciatica; | | | | [place] [facility], | [place] [address] | Essential | | | | [place] [address] | [phone] | hypertension | | | | [phone] | | | +--------+---------+ + + + [...] lisinopril dose change Chronic Pain Pain management [place] 5/325 Assessment and Plan: Chronic low back pain 3 prescriptions of [place] printed and sent to [facility]. Pain exacerbated with more physical [...] wh ite male who presents to the [facility] for continued chronic pain management of lumbar a nd cervical degeneration. His current chronic pain management plan consists of [place] 5//25 2 tablets twice a day, Flexeril 10 mg up to 3 times a day, and gabapentin 900 mg 3 times a day. A review of Saturnino's urinary drug screens show that he is consistent with his prescribe d opioid medication. He receives his medications from the [facility]. Maxi d is reporting an increase [...] & Cleansers Swelling Rash/swelling Uncoded Nonscreenable Allergen [place], patient states he gets red spots and [...]
--- OUTSIDE RECORDS SUMMARY | ~2019-09-01 | XMS | Encounter Summary ---
Demographics + + + | Address | [address] | | | [place] [address] | + + + | Home Phone | | + + + | Preferred Language | Unknown | + + + | Marital Status | | + + + | Synagogue Affiliation | Unknown | + + + | Race | Unknown | + + + | Ethnic Group | Unknown | + + + Author + + + | Author | [facility] | | | and [place] | + + + | Organization | [facility] | [...] Team Providers + +------+ + | Care Codifier Name | Role | Phone | + [...] | MED CTR EXTERNAL | MD [address] | | | | | IMAGING | Tato GOMEZ | | | | | [phone] | [place] [address] | | +--------+ + + + + [...] for comparison only - no result from [place]. | [facility] | + + + + +---------+ + + | Performing | Address | City/State/Zipcode | Phone Number | | Organization | | | | + +---------+ + + | [facility] | | | | + +---------+ + + documented in this encounter Visit Diagnoses Not on filedocumented in this encounter"
--- OUTSIDE RECORDS SUMMARY | ~2019-09-01 | XMS | Encounter Summary ---
Demographics + + + | Address | [address] | | | [place] [address] | + + + | Home Phone | | + + + | Preferred Language | Unknown | + + + | Marital Status | | + + + | Roman Catholic Affiliation | Unknown | + + + | Race | Unknown | + + + | Ethnic Group | Unknown | + + + Author + + + | Author | [facility] | | | and [place] | + + + | Organization | [facility] | | | and [...] Team Providers + +------+ + | Care Information Technology Security Manager Name | Role | Phone | + +------+ + PCP | Unavailable | + +------+ + Encounter Details +--------+ + + + + | Date | Type | Department | Care Team | Description | +--------+ + + + + | 06/19/ | Hospital | [place] [facility] | Faith Rodríguze | | | 2016 | Encounter | [facility] | D, MOTORCYCLE TECHNICIAN ONE | | | | | [address] [place] | [facility] | | | | | [place] | [place] [address] | | | | | [address] | [phone] | | | | | [phone] | | | +--------+ + + + [...]
--- OUTSIDE RECORDS SUMMARY | ~2019-09-01 | XMS | Encounter Summary ---
Demographics + + + | Address | [address] | | | [place] [address] | + + + | Home Phone [...] + | Author | [facility] | | | and [place] | + + + | Organization | [facility] | | | and [place] | [...] Team Providers + +------+ + | Care Children'S Attendant Name | Role | Phone | + [...] Medication Refill | | 2017 | | [facility] | D, RECORDAK OPERATOR ONE | | | | | PRIMARY CARE [address] | [facility] | | | | | JET [facility], | [place] [address] | | | | | [place] [address] | [phone] | | | | | [phone] | | | +--------+ + + + [...]
--- OUTSIDE RECORDS SUMMARY | ~2019-09-01 | XMS | Encounter Summary ---
Demographics + + + | Address | [address] | | | [place] [address] | + + + | Home Phone | | + + + | Preferred Language | Unknown | + + + | Marital Status | | + + + | Mosque Affiliation | Unknown | + + + | Race | Unknown | + + + | Ethnic Group | Unknown | + + + Author + + + | Author | [facility] | | | and [place] | + + + | Organization | [facility] | | | and [place] [...] Providers + +------+ + | Care Web Assistant Name | Role | Phone | + +------+ + | Aric Palmer | PCP | | | PA-C | | | + +------+ + Reason for Visit + + + | Reason | Comments | + + + | Gastroesophageal | | | Reflux | | + + + Encounter Details +--------+---------+ + + + | Date | Type | Department | Care Team | Description | +--------+---------+ + + + | 04/04/ | Office | [place] [facility] | Fadi Santiago | Gastroesophageal | | 2019 | Visit | [facility] | Antonina, AGPCNP-C [address] | reflux disease, | | | | PRIMARY CARE [address] | esophagitis presence | | | | JET [facility], | [place] [address] | not specified | | | | [place] [address] | [phone] | (Primary Dx); | | | | [phone] | | Essential | | | | | | hypertension; | | | | | | Panlobular emphysema | | | | | | ([facility]); Moderate | | | | | | protein-calorie | | | | | | malnutrition ([facility]) | +--------+---------+ + + + [...] + + + | Blood Pressure | 116/57 | 04/04/2019 1:46 PM | | | | | PDT | | + + + + + | Pulse | 84 | 04/04/2019 1:46 PM | | | | | PDT | | + + + + + | Temperature | 36.2 C (97.2 F) | 04/04/2019 1:46 PM | | | | | PDT | | + + + + + | Respiratory Rate | - | - | | + + + + + | Oxygen Saturation | 87% | 04/04/2019 1:46 PM | | | | | PDT | | + + + + + | Inhaled Oxygen | - | - | | | Concentration | | | | + + + + + | Weight | 59.9 kg (132 lb 1.6 | 04/04/2019 1:46 PM | | | | oz) | PDT | | + + + + + | Height | 175.3 cm (5' 9") | 04/04/2019 1:46 PM | | | | | PDT | | + + + + + | Body Mass Index | 19.51 | 04/04/2019 1:46 PM | | | | | PDT | | + + + + + documented in this encounter Patient Instructions Patient Instructions Fadi Santiago AGPCNP-C - 04/04/2019 1:30 PM PDT Medicines for Acid Reflux Your healthcare provider has told you that you have acid reflux. This condition causes stom ach acid to wash up into your throat. For most people, acid reflux is troubling but not garcia erous. But left untreated, acid reflux sometimes damages the esophagus. Medicines can help c ontrol acid reflux and limit your risk of future problems. Medicines for acid reflux Your healthcare provider may prescribe medicine to help treat your acid reflux. Medicine wi ll be based on your symptoms and any test results. Your provider will explain how to take yo ur medicine. You will also be told about possible side effects. Reducing stomach acid Your provider may suggest antacids that you can buy over the counter. Antacids can give fas t relief.Or you may be told to take a type of medicine called H2 blockers. These are avail able over the counter and by prescription (for higher doses). Blocking stomach acid In more severe cases, your healthcare provider may suggest stronger medicines such as trista npump inhibitors (PPIs). These keep the stomach from making acid.They are oftenprescri bed for long-term use. Other medicines In some cases medicines to reduce or block stomach acid may not work. Then you may be switc hed to another type of medicine that helps your stomach empty better. Date Last Reviewed: 07/23/201619999338-6444 [employer]. [address] [place] [address], [place] [address]. All righ ts reserved. This information is not intended as a substitute for professional medical care. Always follow your healthcare professional's instructions. documented in this encounter Progress Notes Fadi Santiago AGPCNP-C - 04/04/2019 1:30 PM PDTFormatting of this note might be di fferent from the original. Assessment & Plan: 1. Gastroesophageal reflux disease, esophagitis presence not specified (Primary) Assessment & Plan: Acid reflux controlled on Omeprazole 20 mg BID, 30 mins before meals. Request for refill today. Orders: - Omeprazole; Take 1 capsule by mouth 2 times daily. Dispense: 180 capsule; Refill: 0 2. Essential hypertension Assessment & Plan: Controlled in clinic today 116/57 Continue prazosin, lisinopril and Coreg Labs on 03/26/19 with elevated BNP of 2212. Patient declines diuretic. Patient has seen lath hand Dr. Little in the past, over a year ago. Declines referral for follow-up with lath hand 3. Panlobular emphysema (HCC) Assessment & Plan: Continued shortness of breath, patient states unchanged. 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 Patient not interested in quitting Smoking cessation counseling Continue inhalers of albuterol and tiotropium-olodaterol 4. Moderate protein-calorie malnutrition (HCC) Assessment & Plan: Weight decrease since last office visit, BMI 19.5 Albumin 2.9 Ensure Plus 1 can 2 times a day Encouraged nutritious meals Subjective: Patient ID: Saturnino Avila is a 74 y.o. male. Chief Complaint Patient presents with Gastroesophageal Reflux Patient in [place] clinic today for refill of omeprazole. New patient to me. He had lab wor k completed on 03/26/19 with several abnormal values, his BNP was 2212 which is higher than hi s normal. He denies any change in shortness of breath or difficulty breathing, no lower ext remity edema, denies chest pain. She continues to smoke 2 packs per day on, has been a smok er for about 62 years, he is not interested in quitting. Smoking cessation discussed for ab out 3-5 minutes. O2 on room air 88-91%, patient states he has been on oxygen in the past bu t it is a "inconvenience for him and he can't lift her tanks" so he does not want home oxyge n. Continues to use inhalers as prescribed. History of hypertension well controlled office today continue blood pressure medications as prescribed. History of GERD states symptoms controlled on omeprazole and is requesting refill today. D enies abdominal pain, nausea, vomiting, epigastric discomfort or other complaints. Patient continues to have weight loss states he is taking ensure twice per day and is now sure why h e is continuing to lose weight. Albumin level checked and is down to 2.9. Other lab work remarkable for slight macrocytic anemia, offered to check vitamin B12 and fo late levels, patient declines. Smoking cessation counseling for 5 minutes. Current every day smoker 2 packs per day of rol ling his own for the past 62 years. Patient not interested in quitting. Continue inhalers of albuterol and tiotropium-olodaterol Review of Systems Constitutional: Positive for unexpected weight change (wt loss). Negative for chills, fatig ue and fever. HENT: Positive for rhinorrhea. Negative for congestion, sinus pressure and sore throat. Respiratory: Positive for cough (at night, sputum white) and shortness of breath. Negative for wheezing. Cardiovascular: Negative for chest pain, palpitations and leg swelling. Gastrointestinal: Negative for abdominal pain, constipation, diarrhea, nausea and vomiting. Genitourinary: Negative for difficulty urinating. Musculoskeletal: Positive for back pain. Skin: Negative for pallor and rash. Neurological: Positive for light-headedness. Negative for dizziness and syncope. Psychiatric/Behavioral: Negative for confusion, hallucinations and sleep disturbance. Objective: BP 116/57 | Pulse 84 | Temp 36.2 C (97.2 F) | Ht 1.753 m (5' 9") | Wt 59.9 kg (132 lb 1.6 oz) | SpO2 (!) 87% | BMI 19.51 kg/m Physical Exam Constitutional: He is oriented to person, place, and time. He appears well-developed and we ll-nourished. Cardiovascular: Normal rate, regular rhythm, normal heart sounds and intact distal pulses. Pulmonary/Chest: Effort normal and breath sounds normal. Abdominal: Soft. Bowel sounds are normal. He exhibits no distension. There is no tenderness . Neurological: He is alert and oriented to person, place, and time. Skin: Skin is warm and dry. Psychiatric: He has a normal mood and affect. His behavior is normal. Nursing note and vitals reviewed. Electronically signed by: MIGUELINA Perez, 04/18/2019 8:16 This note was transcribed using voice recognition software; there may be speech recognition errors which escaped detection during review. documented in this encounter Plan of Treatment Not on filedocumented as of this encounter Visit Diagnoses + + | Diagnosis | + + | Gastroesophageal reflux disease, esophagitis presence not specified - Primary | + + | Essential hypertension Unspecified essential hypertension | + + | Panlobular emphysema (HCC) Other emphysema | + + | Moderate protein-calorie malnutrition (HCC) Malnutrition of moderate degree | + + documented in this encounter
--- OUTSIDE RECORDS SUMMARY | ~2019-09-01 | XMS | Encounter Summary ---
Demographics + + + | Address | [address] | | | [place] [address] | + + + | Home Phone | | + + + | Preferred Language | Unknown | + + + | Marital Status | | + + + | Buddhism Affiliation | Unknown | + + + | Race | Unknown | + + + | Ethnic Group | Unknown | + + + Author + + + | Author | [facility] | | | and [place] | + + + | Organization | [facility] | | | and [...] Team Providers + +------+ + | Care Allergy And Immunology Chief Name | Role | Phone | + +------+ + | Aric Palmer | PCP | | | LETTY | | | + +------+ + Encounter Details +--------+ + + + + | Date | Type | Department | Care Team | Description | +--------+ + + + + | 01/01/ | Documentati | [place] | Aric Palmer | | | 2019 | on | [facility] | LETTY [address] | | | | | PRIMARY CARE [address] | [place], | | | | | [place], | [place] [address] | | | | | [place] [address] | [phone] | | | | | [phone] | | | +--------+ + + + [...] this encounter Progress Notes Rosalia Harmon - 01/01/2019 1:57 PM PDTReceived by [id number] signed by Carrol Harmon at 01/23/2019 8:15 AM Rosalia Agarwal - 01/01/2019 1:57 PM PDTHydroco done 5-325 mg qty 120 Hydrocodone 5-325 mg qty 120 Hydrocodone 5-325 mg qty 120 Hydrocodone 5-325 mg qty 120 Hydrocodone 5-325 mg qty 120 Certified mailed [address] [place] [address] Tracking # [id number] signed by Rosalia Harmon at 01/01/2019 2:03 PM PDTdoc umented in this encounter Plan of Treatment Not on filedocumented as of this encounter Visit Diagnoses Not on filedocumented in this encounter"
--- OUTSIDE RECORDS SUMMARY | ~2019-09-01 | XMS | Encounter Summary ---
Demographics + + + | Address | [address] | | | [place] [address] | + + + | Home Phone | | + + + | Preferred Language | Unknown | + + + | Marital Status | | + + + | Shinto Affiliation | Unknown | + + + | Race | Unknown | + + + | Ethnic Group | Unknown | + + + Author + + + | Author | [facility] | | | and [place] | + + + | Organization | [facility] | | [...] Team Providers + +------+ + | Care Coverage Specialist Rn Name | Role | Phone | + [...] exam | | 2019 | Orders | [facility] | LETTY [address] | (Primary Dx); | | | | [address] | [place] [facility], | Routine medical exam | | | | [facility], [place] | [place] [address] | | | | | [address] | [phone] | | | | | [phone] | | | +--------+ + + + [...] - 1.030 | [place] | | | [place] | | | [place] | | | [...] + + | [place] [facility] | [address] | [place] [address] | [phone] | | HOSPITAL LAB[facility]ATORY | | | | + + + + + documented in this encounter Visit Diagnoses + + | Diagnosis | + + | Annual physical exam - Primary Routine general medical examination at a [facility] | | facility | + + | Routine medical exam Routine general medical examination at a health care facility | + + documented in this encounter"
--- OUTSIDE RECORDS SUMMARY | ~2019-09-01 | XMS | Encounter Summary ---
Demographics + + + | Address | [address] | | | [place] [address] | + + + | Home Phone | | + + + | Preferred Language | Unknown | + + + | Marital Status | | + + + | Rastafarian Affiliation | Unknown | + + + | Race | Unknown | + + + | Ethnic Group | Unknown | + + + Author + + + | Author | [facility] | | | and [place] | + + + | Organization | [facility] | | | and [place] [...] Team Providers + +------+ + | Care Surfboard Designer Name | Role | Phone | + +------+ + PCP | Unavailable | + +------+ + Encounter Details +--------+ + + + + | Date | Type | Department | Care Team | Description | +--------+ + + + + | 05/11/ | Hospital | [place] [facility] | Faith Rodríguez | | | 2016 | Encounter | HOSPITAL RES[facility] | D, SHODDY MILL WORKER ONE | | | | | THERAPY [address] | [facility] [place] | | | | | [place] | [place] [address] | | | | | [address] | [phone] | | | | | [phone] | | | +--------+ + + + [...]
--- OUTSIDE RECORDS SUMMARY | ~2019-09-01 | XMS | Encounter Summary ---
Demographics + + + | Address | [address] | | | [place] [address] | + + + | Home Phone | | + + + | Preferred Language | Unknown | + + + | Marital Status | | + + + | Druze Affiliation | Unknown | + + + | Race | Unknown | + + + | Ethnic Group | Unknown | + + + Author + + + | Author | [facility] | | | and [place] | + + + | Organization | [facility] | | | and [...] Team Providers + +------+ + | Care Navy Airspace Officer Name | Role | Phone | + +------+ + PCP | Unavailable | + +------+ + Encounter Details +--------+ + + + + | Date | Type | Department | Care Team | Description | +--------+ + + + + | 05/03/ | [facility] | [place] [facility] | Faith Rodríguez | | | 2017 | Encounter | [facility] | D, CUSHION MAKER HAND ONE | | | | | PRIMARY CARE [address] | [facility] | | | | | JET [facility], | [place] [address] | | | | | [place] [address] | [phone] | | | | | [phone] | | | +--------+ + + + [...]
--- OUTSIDE RECORDS SUMMARY | ~2019-09-01 | XMS | Encounter Summary ---
Demographics + + + | Address | [address] | | | [place] [address] | + + + | Home Phone | | + + + | Preferred Language | Unknown | + + + | Marital Status | | + + + | Zoroastrian Affiliation | Unknown | + + + | Race | Unknown | + + + | Ethnic Group | Unknown | + + + Author + + + | Author | [facility] | | | and [place] | + + + | Organization | [facility] | | | and [place] [...] Team Providers + +------+ + | Care Senior Mobile Developer Name | Role | Phone | + [...] | PRIMARY CARE [address] | [place], | | | | | [place], | [place] [address] | | | | | [place] [address] | [phone] | | | | | [phone] | | | +--------+ + + + [...] qty 112 Certified mailed to: Nyla Redmond [address] Brown [address] [place] [id number] Tracing number: [id number] Received 11-28-18 by [place] mail clerk 5: 31 PM PSTdocumented in this encounter Plan of Treatment Not on filedocumented as of this encounter Visit Diagnoses Not on filedocumented in this encounter"
--- OUTSIDE RECORDS SUMMARY | ~2019-09-01 | XMS | Encounter Summary ---
Demographics + + + | Address | [address] | | | [place] [address] | + + + | Home Phone [...] [facility] | | | and [place] | + + + | Organization | [facility] | | | and [...] Team Providers + +------+ + | Care Central Melt Specialist Name | Role | Phone | [...] | MED CTR EXTERNAL | MD [address] | | | | | IMAGING | [place] | | | | | [phone] | [place] [address] | | +--------+ + + + + [...] for comparison only - no result from [place]. | [facility] | + + + + +---------+ + + | Performing | Address | City/State/Zipcode | Phone Number | | Organization | | | | + +---------+ + + | [facility] | | | | + +---------+ + + documented in this encounter Visit Diagnoses Not on filedocumented in this encounter"
--- OUTSIDE RECORDS SUMMARY | ~2019-09-01 | XMS | Encounter Summary ---
Demographics + + + | Address | [address] | | | [place] [address] | + + + | Home Phone | | + + + | Preferred Language | Unknown | + + + | Marital Status | | + + + | Druze Affiliation | Unknown | + + + | Race | Unknown | + + + | Ethnic Group | Unknown | + + + Author + + + | Author | [facility] | | | and [place] | + + + | Organization | [facility] [...] Team Providers + +------+ + | Care Testing Specialist Name | Role | Phone | + +------+ + PCP | Unavailable | + +------+ + Encounter Details +--------+ + + + + | Date | Type | Department | Care Team | Description | +--------+ + + + + | 06/13/ | [facility] | [place] [facility] | Faith Rodríguez | | | 2017 | Encounter | [facility] | D, SHANK FAKER ONE | | | | | PRIMARY CARE [address] | [facility] | | | | | [place] [facility], | [place] [address] | | | | | [place] [address] | [phone] | | | | | [phone] | | | +--------+ + + + [...]
--- OUTSIDE RECORDS SUMMARY | ~2019-09-01 | XMS | Encounter Summary ---
Demographics + + + | Address | [address] | | | [place] [address] | + + + | Home Phone | | + + + | Preferred Language | Unknown | + + + | Marital Status | | + + + | Latter Day Affiliation | Unknown | + + + | Race | Unknown | + + + | Ethnic Group | Unknown | + + + Author + + + | Author | [facility] | | | and [place] | + + + | Organization | [facility] | [...] Team Providers + +------+ + | Care Cane Furniture Maker Name | Role | Phone | + +------+ + | Faith Rodríguez SUPERVISOR REACTOR FUELING | PCP | | + +------+ + Encounter Details +--------+ + + + + | Date | Type | Department | Care Team | Description | +--------+ + + + + | 07/24/ | [facility] | [place] [facility] | Faith Rodríguez | | | 2017 | Encounter | [facility] | D, KEN ONE | | | | | PRIMARY CARE [address] | [facility] | | | | | [place] [facility], | [place] [address] | | | | | [place] [address] | [phone] | | | | | [phone] | | | +--------+ + + + [...]
--- OUTSIDE RECORDS SUMMARY | ~2019-09-01 | XMS | Encounter Summary ---
Demographics + + + | Address | [address] | | | [place] [address] | + + + | Home Phone | | + + + | Preferred Language | Unknown | + + + | Marital Status | | + + + | Samaritan Affiliation | Unknown | + + + | Race | Unknown | + + + | Ethnic Group | Unknown | + + + Author + + + | Author | [facility] | | | and [place] | + + + | Organization | [facility] | | | and [...] Team Providers + +------+ + | Care Movie Theater Usher Name | Role | Phone | + +------+ + | Aric Palmer | PCP | | | PA-C | | | + +------+ + Encounter Details +--------+ + + + + | Date | Type | Department | Care Team | Description | +--------+ + + + + | 09/25/ | Telephone | [facility] | Jcarlos Stringer | | | 2017 | | H[facility] [address] | [address] | | | | | [place] | [place] | | | | | [place] | [place] [address] | | | | | [address] | [phone] | | | | | [phone] | | | +--------+ + + + [...]
--- OUTSIDE RECORDS SUMMARY | ~2019-09-01 | XMS | Encounter Summary ---
Demographics + + + | Address | [address] | | | [place] [address] | + + + | Home Phone | | + + + | Preferred Language | Unknown | + + + | Marital Status | | + + + | Episcopal Affiliation | Unknown | + + + | Race | Unknown | + + + | Ethnic Group | Unknown | + + + Author + + + | Author | [facility] | | | and [place] | + + + | Organization | [facility] | | | and [place] [...] Providers + +------+ + | Care Senior Datastage Developer Name | Role | Phone | + +------+ + | Faith Rodríguez NP | PCP | | + +------+ + Reason for Visit + + + | Reason | Comments | + + + | Results, Imaging | | + + + Encounter Details +--------+ + + + + | Date | Type | Department | Care Team | Description | +--------+ + + + + | 09/20/ | Telephone | [place] [facility] | Faith Rodríguez | Results, Imaging | | 2017 | | [facility] | D, DIRECTOR SANITATION BUREAU ONE | | | | | PRIMARY CARE [address] | [facility] | | | | | JET [facility] [place], | [place] [address] | | | | | [place] [address] | [phone] | | | | | [phone] | | | +--------+ + + + [...]
--- OUTSIDE RECORDS SUMMARY | ~2019-09-01 | XMS | Encounter Summary ---
Demographics + + + | Address | [address] | | | [place] [address] | + + + | Home Phone | | + + + | Preferred Language | Unknown | + + + | Marital Status | | + + + | Baptism Affiliation | Unknown | + + + | Race | Unknown | + + + | Ethnic Group | Unknown | + + + Author + + + | Author | [facility] | | | and [place] | + + + | Organization | [facility] | | | [...] Team Providers + +------+ + | Care Electrical Controls Technician Name | Role | Phone | [...] Provide Resources | | 2019 | | [facility] | D, [address] | (W assistance with | | | | PRIMARY CARE [address] | resources) | | | | JET [facility] [place], | [place] [address] | | | | | [place] [address] | [phone] | | | | | [phone] | | | +--------+ + + + [...]
--- OUTSIDE RECORDS SUMMARY | ~2019-09-01 | XMS | Encounter Summary ---
Demographics + + + | Address | [address] | | | [place] [address] | + + + | Home Phone [...] Author | [facility] | | | and [place] | + + + | Organization | [facility] | [...] Team Providers + +------+ + | Care Foam Fabricator Name | Role | Phone | + +------+ + | Aric [place] | PCP | | | PA-Terry | | | + +------+ + Reason for Visit + + + | Reason | Comments | + + + | Coordination Of Care | Assistance with being screened or eligibility to move to long | | | term care facility | + + + Encounter Details +--------+ + + + + | Date | Type | Department | Care Team | Description | +--------+ + + + + | 03/06/ | Telephone | [place] [facility] | Estrellita Brasher | Coordination Of Care | | 2019 | | [facility] | D, [address] | (Assistance with | | | | PRIMARY CARE [address] | [address] | being screened or | | | | JET [facility], | [place], [place] [address] | eligibility to move | | | | [place] [address] | [phone] | to intermediate manager care | | | | [phone] | | facility) | +--------+ + + + + Social [...]
--- OUTSIDE RECORDS SUMMARY | ~2019-09-01 | XMS | Encounter Summary ---
Demographics + + + | Address | [address] | | | [place] [address] | + + + | Home Phone | | + + + | Preferred Language | Unknown | + + + | Marital Status | | + + + | Adventism Affiliation | Unknown | + + + | Race | Unknown | + + + | Ethnic Group | Unknown | + + + Author + + + | Author | [facility] | | | and [place] | + + + | Organization | [facility] | | | and [place] | [...] Team Providers + +------+ + | Care Ad Setter Name | Role | Phone | + +------+ + | Faith Rodríguez QUARTER SECTION IRONER | PCP | | + +------+ + [...] | | | | | Pulmonary | Gordon | [facility] | | | | | nodules | MD Nitin | IMAGING [address] | | | | | Tobacco | [address] | | | | | dependence | JOSE J | [place] | | | | | Procedures | [place], | [address] | | | | | PET CT Skull | [place] [address] | Phone: | | | | | Base To Mid | Phone: | [phone] | | | | | Thigh | [phone] | Fax: | | | | | | Fax: | [phone] | | | | | | [phone] | | +--------+--------+ + + + + Encounter Details +--------+ + + + + | Date | Type | Department | Care Team | Description | +--------+ + + + + | 10/09/ | Hospital | [place] [facility] | Jcarlos Stringer | | | 2017 | Encounter | HOSPITAL PET SCAN | MD Nitin [address] | | | | | [address] [place] | [place] | | | | | [place] | [place] [address] | | | | | [address] | [phone] | | | | | [phone] | | | +--------+ + + + [...] + + + +---------+ + + | nicotine | Place 4 mg inside | | 0 | | | | polacrilex (NICOTINE | cheek every 2 hours. | | | | 8 | | MINI) 4 MG lozenge | | | | | | + [...] +---------+ + + | Nutritional | Take by mouth 2 | | 0 | | | | Supplements (ENSURE | times daily. | | | | 8 | | PLUS HN) LIQD | | | | | | + + + +---------+ + + | omeprazole | Take 20 mg by mouth | | 0 | | | | (PRILOSEC) 20 mg | 2 times daily. | | | | 8 | | capsule | | | | | | + + + +---------+ + + | prazosin | Take 2 mg [...] +---------+ + + | traZODone | Take 100 mg [...] | + +--------+ + + + | PET CT SKULL BASE TO | Routin | 10/09/2017 | Pulmonary nodules | Results for this | | MID THIGH | e | 11:28 AM | Tobacco dependence | procedure are in the | | | | PST | | results section. | + +--------+ + + + documented in this encounter Results PET CT Skull Base [...] facet degenerative changes lumbar spine. Dictated by: Staya Gamboa | Leon | | | PM | | + [...]
--- OUTSIDE RECORDS SUMMARY | ~2019-09-01 | XMS | Encounter Summary ---
Demographics + + + | Address | [address] | | | [place] [address] | + + + | Home Phone [...] Author | [facility] | | | and [place] | + + + | Organization | [facility] | | | and [place] [...] Team Providers + +------+ + | Care Cardiology Nurse Practitioner Name | Role | Phone | + +------+ + | Faith Rodríguez NP | PCP | | + +------+ + Reason for Visit +--------+ + | Reason | Comments | +--------+ + | Other | records sent | +--------+ + Encounter Details +--------+ + + + + | Date | Type | Department | Care Team | Description | +--------+ + + + + | 10/12/ | Telephone | [facility] | Deangelo Little | Other (records sent) | | 2017 | | [facility] [address] | MD Brendan [address] | | | | | [place], | [address] [place] | | | | | [place] [address] | [place] [address] | | | | | [phone] | [phone] | | | | | | | [...]
--- OUTSIDE RECORDS SUMMARY | ~2019-09-01 | XMS | Encounter Summary ---
Demographics + + + | Address | [address] | | | [place] [address] | + + + | Home Phone [...] Author | [facility] | | | and [place] | + + + | Organization | [facility] | | | and [place] [...] Team Providers + +------+ + | Care Plasterer Helper Name | Role | Phone | + +------+ + | Aric [place] | PCP | | | PA-C | | | + +------+ + Reason for Referral Evaluate & Treat (Routine) +--------+ + + + + + | Status | Reason | Specialty | Diagnoses / | Referred By | Referred To | | | | | Procedures | Contact | Contact | +--------+ + + + + + | Closed | Specialty | Behavioral | Diagnoses | [facility] | | | Services | Health | Emotional | [place] | [facility]hav | | | Required | | crisis, | Primary Care | [facility] [address] | | | | | acute | [address] | | | | | reaction to | [address] | [place], [place] | | | | | stress | [place], [place] | [address] | | | | | | [address] | Phone: | | | | | | Phone: | [phone] | | | | | | [phone] | Fax: | | | | | | Fax: | [phone] | | | | | | [phone] | | +--------+ + + + + + Encounter Details +--------+ + + + + | Date | Type | Department | Care Team | Description | +--------+ + + + + | 01/22/ | Orders Only | [place] [facility] | Aric Palmer | Emotional crisis, | | 2018 | | [facility] [place] | LETTY [address] | acute reaction to | | | | PRIMARY CARE [address] [place], | stress (Primary Dx) | | | | [address] [place], | [place] [address] | | | | | [place] [address] | [phone] | | | | | [phone] | | | +--------+ + + + [...] as of this encounter Plan of Treatment + + +--------+ + + | Name | Type | Priori | Associated Diagnoses | Order Schedule | | | | ty | | | + + +--------+ + + | Behavioral Health, | Outpatient | Routin | Emotional crisis, | Ordered: 01/22/2019 | | External - AMB | Referral | e | acute reaction to | | | Referral | | | stress | | + + +--------+ + + documented as of this encounter Visit Diagnoses + + | Diagnosis | + + | Emotional crisis, acute reaction to stress - Primary Predominant disturbance of | | emotions | + + documented in this encounter"
--- OUTSIDE RECORDS SUMMARY | ~2019-09-01 | XMS | Encounter Summary ---
Demographics + + + | Address | [address] | | | [place] [address] | + + + | Home Phone [...] | Author | [facility] | | | and [place] | + + + | Organization | [facility] | | | and [...] Team Providers + +------+ + | Care Tax Accounting Assistant Name | Role | Phone | + +------+ + PCP | Unavailable | + +------+ + Encounter Details +--------+ + + + + | Date | Type | Department | Care Team | Description | +--------+ + + + + | 05/09/ | Hospital | [place] [facility] | Faith Rodríguez | | | 2016 | Encounter | HOSPITAL XRAY [address] | D, OPERATIONS SUPPORT PROFESSIONALS ONE | | | | | [place] | [facility] [place] | | | | | [place] | [place] [address] | | | | | [address] | [phone] | | | | | [phone] | | | +--------+ + + + [...] + +--------+ + + + | US HEAD NECK SOFT | Routin | 05/09/2017 | | Results for this | | TISSUE | e | 12:39 PM | | procedure are in the | | | | PDT | | results section. | + +--------+ + + + documented in this encounter Results US Head Neck Soft Tissue (05/09/2017 12:39 PM PDT) + + | Specimen | + + | | + + + + + | Narrative | Performed At | + + + | EXAMINATION: ECHO S/T HEAD/NECK/THYROID HISTORY: Thyromegaly & | | | thyroid nodules. COMPARISON STUDY: CT chest abdomen pelvis | | | 04/28/2017 FINDINGS: Right thyroid:Length is 4.2 cm. Doppler | | | flow appears within normal limits within the thyroid. Upper:No | | | nodule Mid:At the deep margin of the thyroid a heterogeneous | | | predominantly hypoechoic 0.7 cm nodule is noted. Lower: Biopsy | | | could be considered given size and part solid spongiform 2 cm nodule | | | is demonstrated. Adjacent anechoic 4 mm lesion is present. | | | Isthmus:Length is 5.2 cm. Doppler flow within the thyroid appears | | | within normal limits. Left thyroid: Upper:No nodule | | | Mid:No nodule Lower:No nodule No cervical adenopathy is seen. | | | IMPRESSION: Spongiform 2 cm inferior pole right thyroid nodule. | | | Biopsy could be considered given size and part solid composition. | | | The lesion would be amendable to ultrasound-guided procedure. | | | At the deep margin of the mid right thyroid a hypoechoic less than 1 | | | cm nodule is noted. This finding may relate to thyroid nodule. | | | Potentially a parathyroid lesion could result in similar | | | appearance. JOB #: [id number] Digitally Released by: Faye Quintero | | | Read By: FAYE QUINTERO MD Date: 05/09/2017 13:58 | | + + + + + | Procedure Note | + + | Ishaan, Rad Results In - 11/02/2017 1:09 PM PST EXAMINATION: | | ECHO S/T HEAD/NECK/THYROID | | | | HISTORY: | | Thyromegaly & thyroid nodules. | | | | COMPARISON STUDY: | | CT chest abdomen pelvis 04/28/2017 | | | | FINDINGS: | | Right thyroid:Length is 4.2 cm. Doppler flow appears within normal limits | | within the thyroid. | | | | Upper:No nodule | | | | Mid:At the deep margin of the thyroid a heterogeneous predominantly hypoechoic | | 0.7 cm nodule is noted. | | | | Lower: Biopsy could be considered given size and part solid spongiform 2 cm | | nodule is demonstrated. Adjacent anechoic 4 mm lesion is present. | | | | Isthmus:Length is 5.2 cm. Doppler flow within the thyroid appears within | | normal limits. | | | | Left thyroid: | | | | Upper:No nodule | | | | Mid:No nodule | | | | Lower:No nodule | | | | No cervical adenopathy is seen. | | | | IMPRESSION: | | Spongiform 2 cm inferior pole right thyroid nodule. Biopsy could be | | considered given size and part solid composition. The lesion would be | | amendable to ultrasound-guided procedure. | | | | At the deep margin of the mid right thyroid a hypoechoic less than 1 cm nodule | | is noted. This finding may relate to thyroid nodule. Potentially a | | parathyroid lesion could result in similar appearance. | | | | | | JOB #: [id number] | | Digitally Released by: Faye Quintero | | | | | | Read By: FAYE QUINTERO MD | | Date: 05/09/2017 13:58 | | | + + documented in this encounter Visit Diagnoses Not on filedocumented in this encounter"
--- OUTSIDE RECORDS SUMMARY | ~2019-09-01 | XMS | Encounter Summary ---
Demographics + + + | Address | [address] | | | [place] [address] | + + + | Home Phone [...] | Author | [facility] | | | and [place] | + + + | Organization | [facility] | | | and [...] Providers + +------+ + | Care Hot Mill Operator Name | Role | Phone | [...] | PRIMARY CARE [address] | JET [employer], | | | | | JET [employer], | [place] [address] | | | | | [place] [address] | [phone] | | | | | [phone] | | | +--------+ + + + [...] Harmon - 01/01/2019 1:57 PM PDTReceived by [place] [id number] signed by Carrol Harmon at 01/23/2019 8:15 AM Rosalia Agarwal - 01/01/2019 1:57 PM PDTHydroco done 5-325 mg qty 120 Hydrocodone 5-325 mg qty 120 Hydrocodone 5-325 mg qty 120 Hydrocodone 5-325 mg qty 120 Hydrocodone 5-325 mg qty 120 Certified mailed [address] [place] [address] Tracking # [id number] signed by Rosalia Harmon at 01/01/2019 2:03 PM PDTdoc umented in this encounter Plan of Treatment Not on filedocumented as of this encounter Visit Diagnoses Not on filedocumented in this encounter"
--- OUTSIDE RECORDS SUMMARY | ~2019-09-01 | XMS | Encounter Summary ---
Demographics + + + | Address | [address] | | | [place] [address] | + + + | Home Phone [...] Author | [facility] | | | and [place] | + + + | Organization | [facility] | | | and [place] [...] Team Providers + +------+ + | Care Peripheral Edp Equipment Operator Name | Role | Phone | [...] PRIMARY CARE [address] | JET [facility], | | | | | JET [facility], | [place] [address] | | | | | [place] [address] | [phone] | | | | | [phone] | | | +--------+--------+ + + + [...]
--- OUTSIDE RECORDS SUMMARY | ~2019-09-01 | XMS | Encounter Summary ---
Demographics + + + | Address | [address] | | | [place] [address] | + + + | Home Phone | | + + + | Preferred Language | Unknown | + + + | Marital Status | | + + + | Bahai Affiliation | Unknown | + + + | Race | Unknown | + + + | Ethnic Group | Unknown | + + + Author + + + | Author | [facility] | | | and [place] | + + + | Organization | [facility] | | | and [place] [...] Team Providers + +------+ + | Care Street Engineer Name | Role | Phone | [...] | +--------+ + + + + | 01/23/ | Telephone | [place] [facility] | Faith Rodríguez | Results | | 2018 | | [facility] | D, COUNTER HELP ONE | | | | | PRIMARY CARE [address] | [facility] | | | | | JET [facility], | [place], [place] [address] | | | | | [place] [address] | [phone] | | | | | [phone] | | | +--------+ + + + [...]
--- OUTSIDE RECORDS SUMMARY | ~2019-09-01 | XMS | Encounter Summary ---
Demographics + + + | Address | [address] | | | [place] [address] | + + + | Home Phone | | + + + | Preferred Language | Unknown | + + + | Marital Status | | + + + | Yarsanism Affiliation | Unknown | + + + | Race | Unknown | + + + | Ethnic Group | Unknown | + + + Author + + + | Author | [facility] | | | and [place] | + + + | Organization | [facility] | | | and [place] | [...] Team Providers + +------+ + | Care Financial Compliance Manager Name | Role | Phone | [...] Essential | | 2017 | Visit | [facility] | D, COTTAGE MASTER ONE | hypertension | | | | PRIMARY CARE [address] | [facility] [place] | (Primary Dx); | | | | JET [facility], | [place] [address] | Pulmonary nodules; | | | | [place] [address] | [phone] | Panlobular emphysema | | | | [phone] | | ([facility]) | +--------+---------+ + + + Social History [...] DO NOT drive yourself. DO NOT have [facility] person drive you to the hospital. You may be having a heart attack, and you should be in the care of Medics who will safely bring you to the hospital. Copyright [employer]. All rights reserved. Heart Disease Education The [...] You will often be evaluated by a multimedia specialist (c ardiologist) who decides the best course of action. In the case of severe angina or early he art attack, and depending on the circumstances, powerful "clot busting" medicines can be use d to dissolve blood clots in the coronary artery. In other cases, you may be taken to a [facility] catheterization lab. Here,a tiny balloon-tipped [...] doses in your wallet. Date Last Reviewed: 10/21/201519999619-2841 [employer]. [address] [place] [address], [place] [address]. All righ ts reserved. This information is [...] since his cardiac tests indicate an old [place] , and with his heart failure and [...] to cut down. Subjective: He saw a ancillary specialist, Dr. Jcarlos Stringer on 09/19 for evaluation [...] also told that he had a silent [place] in May when we thought he might have had a TIA. He will be seeshaquille larson a fire engine operator in September tollow up on his old [place] and recent echo results will be faxed t o him as well. We discussed his echo results which indicate left atrial enlargement and an ejection fraction of 35% as well as diastolic dysfunction. Reports his mother also had a s ilent [place] at age 75 when receiving chemo for her lung cancer, and she had a partial left lobe ctomy due to lung cancer from supposed secondhand smoke exposure as she was not a smoker at age 72. His sister also had an [place] at age 35 when she quit producing platelets. He is seeing the fire engine operator on the 12th in [place], and he is going to see the pulmon ologist in two weeks as well. 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 He has cut down his cigarette use to a pack a day, he has lost three pounds since o ur last visit. States he used to have chest pain in his 50's and he went in to an ER in [facility] at that time due to chest pain [...] had nitroglycerin tabs when he lived in [place]. He states he did ok with these, [...]
--- OUTSIDE RECORDS SUMMARY | ~2019-09-01 | XMS | Encounter Summary ---
Demographics + + + | Address | [address] | | | [place] [address] | + + + | Home Phone | | + + + | Preferred Language | Unknown | + + + | Marital Status | | + + + | Scientologist Affiliation | Unknown | + + + | Race | Unknown | + + + | Ethnic Group | Unknown | + + + Author + + + | Author | [facility] | | | and [place] | + + + | Organization | [facility] | | | and [...] Team Providers + +------+ + | Care Environmental Engineering Intern Name | Role | Phone | + [...] Of Care | | 2019 | | [facility] | D, [address] | (Assistance with | | | | PRIMARY CARE [address] | being screened or | | | | JET [facility], | [place], [place] [address] | eligibility to move | | | | [place] [address] | [phone] | to termite exterminator helper care | | | | [phone] | | facility) | +--------+ + + [...]
--- OUTSIDE RECORDS SUMMARY | ~2019-09-01 | XMS | Encounter Summary ---
Demographics + + + | Address | [address] | | | [place] [address] | + + + | Home Phone | | + + + | Preferred Language | Unknown | + + + | Marital Status | | + + + | Mormonism Affiliation | Unknown | + + + | Race | Unknown | + + + | Ethnic Group | Unknown | + + + Author + + + | Author | [facility] | | | and [place] | + + + | Organization | [facility] [...] Team Providers + +------+ + | Care Screen Making Supervisor Name | Role | Phone | [...] Medication Refill | | 2018 | | [facility] | D, ENVIRONMENTAL SUSTAINABILITY MANAGER ONE | | | | | PRIMARY CARE [address] | [facility] | | | | | [facility], | [place] [address] | | | | | [place] [address] | [phone] | | | | | [phone] | | | +--------+--------+ + + + [...]
--- OUTSIDE RECORDS SUMMARY | ~2019-09-01 | XMS | Encounter Summary ---
Demographics + + + | Address | [address] | | | [place] [address] | + + + | Home Phone [...] | Author | [facility] | | | and [place] | + + + | Organization | [facility] | | | and [place] [...] Team Providers + +------+ + | Care Drain Layer Name | Role | Phone | + [...] | PRIMARY CARE [address] | [facility], | Herniation of | | | | [facility], | [place] [address] | intervertebral disc | | | | [place] [address] | [phone] | of cervical spine | | | | [phone] | | due to degeneration; | | [...] Chronic low back pain Multi-level degeneration. Continue Cascade 5/325 2 tabs BID through [facility]. 3 prescriptions of #120 provided today. Will [...] current chronic pain management plan consists of Cascade 5/3/25 2 tablets twice a day, Flex eril 10 mg up to 3 times a day, and gabapentin 900 mg 3 times a day. A review of Saturnino's ur inary drug screens show that he is consistent with his prescribed opioid medication. [facility]. Allergies: Allergies Allergen Reactions Aspirin Nausea Only and Swelling Bee Venom Anaphylaxis Soap & Cleansers Swelling Rash/swelling Uncoded Nonscreenable Allergen [place], patient states he gets red spots and [...] AM PDTPatient did not zander ng in [place] but reports he script just came in the mail from the [place]. Patient reports pain is 4 out of [...] | + + + + + | [facility] | [address] | [place] [address] | [phone] | | HOSPITAL LABORATORY | | | [...] + + | [place] [facility] | [address] | [place] [address] | [phone] | | HOSPITAL LABORATORY | | | [...] | [facility] | | | | mg/dL [id number] - | | HOSPITAL | | | | 129 mg/dL Near | | LABORATORY | | | | Waahzqv763 - 159 mg/dL | | | | | | [id number] - 189 | | | | | [...] + + | [place] | [address] | [place] [address] | [phone] | | HOSPITAL LABORATORY | | | [...] | mL/min/1.73m2 | [facility] | | | [place]ORE[place] | RATE,ESTIMATED | | HOSPITAL | | | | mL/min/1.11d6Ifvx than | | LABORATORY | | | [...] + + | [place] [facility] | [address] | [place] [address] | [phone] | | HOSPITAL LABORATORY | | | [...] + + | [place] | [address] | [place] [address] | [phone] | | HOSPITAL LABORATORY | | | | + + + + + Drugs of Abuse, Panel, Pain Management 1 (02/13/2019 10:45 AM PDT) + + + + + + | Component | Value | Ref Range | Performed | Pathologist | | | | | At | Signature | + + + + + + | Prescribed | Cascade(TM) | | REFERENCE | | | Drug [...] Diagnostics | | | | | | [facility] | | | | | | [...] | | | | [facility] | | | | | | Kathia Pastor M.D., | | | | | | Ph.D., Laboratory | | | | | | Director [address] | | | | | | [facility] | | | | | | [place] [address] | | | | | | OBINNA #[id number] | | | | + + + + + + + + | Specimen | + + | Urine | + + + + + + + | Performing | Address | City/State/Zipcode | Phone Number | | Organization | | | | + + + + + | REFERENCE LAB | [address] [facility] | [place] | | | [facility] - | | [address] | | | [place] | | [...]
--- OUTSIDE RECORDS SUMMARY | ~2019-09-01 | XMS | Encounter Summary ---
Demographics + + + | Address | [address] | | | [place] [address] | + + + | Home Phone | | + + + | Preferred Language | Unknown | + + + | Marital Status | | + + + | Restorationist Affiliation | Unknown | + + + | Race | Unknown | + + + | Ethnic Group | Unknown | + + + Author + + + | Author | [facility] | | | and [place] | + + + | Organization | [facility] | [...] Team Providers + +------+ + | Care Ski Binding Fitter And Repairer Name | Role | Phone | [...] | Other | | 2017 | | [facility] | D, SENIOR OFFICE ASSISTANT ONE | | | | | PRIMARY CARE [address] | [facility] | | | | | [facility], | [place] [address] | | | | | [place] [address] | [phone] | | | | | [phone] | | | +--------+ + + + [...]
--- OUTSIDE RECORDS SUMMARY | ~2019-09-01 | XMS | Encounter Summary ---
Demographics + + + | Address | [address] | | | [place] [address] | + + + | Home Phone [...] | Author | [facility] | | | and [place] | + + + | Organization | [facility] | | | and [...] Team Providers + +------+ + | Care Cryptographic Machine Operator Name | Role | Phone | + +------+ + | Faith Rodríguez NP | PCP | | + +------+ + Encounter Details +--------+ + + + + | Date | Type | Department | Care Team | Description | +--------+ + + + + | 11/20/ | Documentati | [place] [facility] | Candy Iglesias, | | | 2018 | on | [facility] | RN | | | | | PRIMARY CARE [address] | | | | | | [facility] | | | | | | [place] [address] | | | | | | [phone] | | | +--------+ + + + [...]
--- OUTSIDE RECORDS SUMMARY | ~2019-09-01 | XMS | Encounter Summary ---
Demographics + + + | Address | [address] | | | [place] [address] | + + + | Home Phone | | + + + | Preferred Language | Unknown | + + + | Marital Status | | + + + | Pentecostal Affiliation | Unknown | + + + | Race | Unknown | + + + | Ethnic Group | Unknown | + + + Author + + + | Author | [facility] | | | and [place] | + + + | Organization | [facility] | | [...] Team Providers + +------+ + | Care Property Maintenance Supervisor Name | Role | Phone | [...] Procedures | PA-C [address] | [place] [address] | | | | | CT Chest wo | [address] | Phone: | | | | | Contrast CT | [place], [place] | [phone] | | | | | Chest | [address] | Fax: | | | | | Abdomen wo | Phone: | [phone] | | | | | Contrast | [phone] | | | | | | | Fax: | | | | | | | [phone] | | +--------+--------+ + + + + [...] PRIMARY CARE [address] | [address] [place], | | | | | [place], | [place] [address] | | | | | [place] [address] | [phone] | | | | | [phone] | | | +--------+ + + + [...]
--- OUTSIDE RECORDS SUMMARY | ~2019-09-01 | XMS | Encounter Summary ---
Demographics + + + | Address | [address] | | | [place] [address] | + + + | Home Phone | | + + + | Preferred Language | Unknown | + + + | Marital Status | | + + + | Catholic Affiliation | Unknown | + + + | Race | Unknown | + + + | Ethnic Group | Unknown | + + + Author + + + | Author | [facility] | | | and [place] | + + + | Organization | [facility] | | | and [place] [...] Team Providers + +------+ + | Care Top And Trim Worker Name | Role | Phone | [...] | | [place] | [place] [address] | | | | | [address] | [phone] | | | | | [phone] | | | +--------+ + + + [...]
--- OUTSIDE RECORDS SUMMARY | ~2019-09-01 | XMS | Encounter Summary ---
Demographics + + + | Address | [address] | | | [place] [address] | + + + | Home Phone | | + + + | Preferred Language | Unknown | + + + | Marital Status | | + + + | Yazidi Affiliation | Unknown | + + + | Race | Unknown | + + + | Ethnic Group | Unknown | + + + Author + + + | Author | [facility] | | | and [place] | + + + | Organization | [facility] | | | and [place] [...] Team Providers + +------+ + | Care Wash House Worker Name | Role | Phone | [...] Results, Imaging | | 2017 | | [facility] | D, LAND CLASSIFIER ONE | | | | | PRIMARY CARE [address] | [facility] | | | | | [facility], | [place] [address] | | | | | [place] [address] | [phone] | | | | | [phone] | | | +--------+ + + + [...]
--- OUTSIDE RECORDS SUMMARY | ~2019-09-01 | XMS | Encounter Summary ---
Demographics + + + | Address | [address] | | | [place] [address] | + + + | Home Phone [...] + | Author | [facility] | | | and [place] | + + + | Organization | [facility] | | | and [place] [...] Team Providers + +------+ + | Care Machinist Helper Name | Role | Phone | [...] Provide Resources | | 2019 | | [facility] | D, [address] | (W assistance with | | | | PRIMARY CARE [address] | [address] | resources) | | | | [facility], | [place] [address] | | | | | [place] [address] | [phone] | | | | | [phone] | | | +--------+ + + + [...]
--- OUTSIDE RECORDS SUMMARY | ~2019-09-01 | XMS | Encounter Summary ---
Demographics + + + | Address | [address] | | | [place] [address] | + + + | Home Phone | | + + + | Preferred Language | Unknown | + + + | Marital Status | | + + + | Religion Affiliation | Unknown | + + + | Race | Unknown | + + + | Ethnic Group | Unknown | + + + Author + + + | Author | [facility] | | | and [place] | + + + | Organization | [facility] | | | and [...] Team Providers + +------+ + | Care Equipment Tester Name | Role | Phone | + [...] | Other | | 2018 | | [facility] | D, MARKETING FINANCIAL ANALYST ONE | | | | | PRIMARY CARE [address] | [facility] | | | | | [facility], | [place] [address] | | | | | [place] [address] | [phone] | | | | | [phone] | | | +--------+ + + + [...]
--- OUTSIDE RECORDS SUMMARY | ~2019-09-01 | XMS | Encounter Summary ---
Demographics + + + | Address | [address] | | | [place] [address] | + + + | Home Phone [...] | Author | [facility] | | | and [place] | + + + | Organization | [facility] | | | and [place] [...] Team Providers + +------+ + | Care Independent Insurance Adjuster Name | Role | Phone | + +------+ + | Aric Palmer | PCP | | | PA-Terry | | | + +------+ + Reason for Visit + + + | Reason | Comments | + + + | Imaging Only | | + + + Encounter Details +--------+ + + + + | Date | Type | Department | Care Team | Description | +--------+ + + + + | 02/26/ | Telephone | [place] [facility] | Aric Palmer | Imaging Only | | 2018 | | [facility] [place] | [address] | | | | | PRIMARY CARE [address] | [facility], | | | | | [facility], | [place] [address] | | | | | [place] [address] | [phone] | | | | | [phone] | | | +--------+ + + + [...]
--- OUTSIDE RECORDS SUMMARY | ~2019-09-01 | XMS | Encounter Summary ---
Demographics + + + | Address | [address] | | | [place] [address] | + + + | Home Phone [...] | Author | [facility] | | | and [place] | + + + | Organization | [facility] | | | [...] Team Providers + +------+ + | Care Wood Machinist Apprentice Name | Role | Phone | + +------+ + PCP | Unavailable | + +------+ + Encounter Details +--------+ + + + + | Date | Type | Department | Care Team | Description | +--------+ + + + + | 05/25/ | Hospital | [place] [facility] | Faith Rodríguez | | | 2017 | Encounter | HOSPITAL XRAY [address] | D, LOG CUT OFF SAWYER ONE | | | | | [place] | [facility] | | | | | [place] | [place] [address] | | | | | [address] | [phone] | | | | | [phone] | | | +--------+ + + + [...] up DEXA evaluation is recommended JOB #: [id number] | | | Digitally Released by: Juan [...] | | | | | JOB #: [id number] | | Digitally Released by: Juan Miguel Hamm | | | | | | Read By: JUAN MIGUEL HAMM MD | | Date: 05/25/2017 11:25 | | | + + documented in this encounter Visit Diagnoses Not on filedocumented in this encounter"
--- OUTSIDE RECORDS SUMMARY | ~2019-09-01 | XMS | Encounter Summary ---
Demographics + + + | Address | [address] | | | [place] [address] | + + + | Home Phone | | + + + | Preferred Language | Unknown | + + + | Marital Status | | + + + | Denominational Affiliation | Unknown | + + + | Race | Unknown | + + + | Ethnic Group | Unknown | + + + Author + + + | Author | [facility] | | | and [place] | + + + | Organization | [facility] | | | and [place] [...] Team Providers + +------+ + | Care Tie Inspector Name | Role | Phone | + [...] Medication Refill; | | 2018 | | [facility] [place] | [address] | Medication Refill | | | | PRIMARY CARE [address] | [facility] | | | | | [facility] | [place] [address] | | | | | [place] [address] | [phone] | | | | | [phone] | | | +--------+--------+ + + + [...]
--- OUTSIDE RECORDS SUMMARY | ~2019-09-01 | XMS | Encounter Summary ---
Demographics + + + | Address | [address] | | | [place] [address] | + + + | Home Phone [...] | Author | [facility] | | | and [place] | + + + | Organization | [facility] | | | and [place] | + + + | Address | Unknown | + + + | Phone | Unavailable | + + + Support + + +---------+ + | Name | Relationship | Address | Phone | + + +---------+ + | Salian Purdy | ECON | Unknown | | + + +---------+ + Care Team Providers + +------+ + | Care Various Exceptionalities Teacher Name | Role | Phone | + +------+ + PCP | Unavailable | + +------+ + Encounter Details +--------+ + + + + | Date | Type | Department | Care Team | Description | +--------+ + + + + | 06/29/ | [facility] | [place] | Faith Rodríguez | | | 2017 | Encounter | [facility] | D, ACADEMIC AFFAIRS COORDINATOR ONE | | | | | PRIMARY CARE [address] | [facility] | | | | | [facility], | [place] [address] | | | | | [place] [address] | [phone] | | | | | [phone] | | | +--------+ + + + [...]
--- OUTSIDE RECORDS SUMMARY | ~2019-09-01 | XMS | Encounter Summary ---
Demographics + + + | Address | [address] | | | [place] [address] | + + + | Home Phone [...] | Author | [facility] | | | and [place] | + + + | Organization | [facility] | | | [...] Team Providers + +------+ + | Care Hydrographer Name | Role | Phone | + [...] | | stress | [place], [place] | [address] | | | | | | [address] | Phone: | | | | | | Phone: | [phone] | | | | | | [phone] | Fax: | | | | | | Fax: | [phone] | | | | | | [phone] | | +--------+ + + + + [...] | | [address] [place], | [place] [address] | | | | | [place] [address] | [phone] | | | | | [phone] | | | +--------+ + + + [...]
--- OUTSIDE RECORDS SUMMARY | ~2019-09-01 | XMS | Encounter Summary ---
Demographics + + + | Address | [address] | | | [place] [address] | + + + | Home Phone [...] | Author | [facility] | | | and [place] | + + + | Organization | [facility] | | | and [place] [...] Providers + +------+ + | Care Web Operations Administrator Name | Role | Phone | + +------+ + PCP | Unavailable | + +------+ + Encounter Details +--------+ + + + + | Date | Type | Department | Care Team | Description | +--------+ + + + + | 05/30/ | Hospital | [place] [facility] | Faith Rodríguez | | | 2017 | Encounter | HOSPITAL XRAY [address] | D, ONLINE MARKETING COORDINATOR ONE | | | | | [place] | [facility] | | | | | [place] | [place] [address] | | | | | [address] | [phone] | | | | | [phone] | | | +--------+ + + + [...] + +--------+ + + + | US GUIDED THYROID | Routin | 05/30/2017 | | Results for this | | BIOPSY | e | 7:38 AM | | procedure are in the | | | | PDT | | results section. | + +--------+ + + + documented in this encounter Results US Guided Thyroid Biopsy (05/30/2017 7:38 AM PDT) + + | Specimen | + + | | + + + + + | Narrative | Performed At | + + + | EXAMINATION: ECHO BIOPSY THYROID HISTORY: 2 cm inferior pole | | | right thyroid nodule COMPARISON STUDY: Ultrasound thyroid | | | 05/09/2017 FINDINGS: The procedure is discussed with the patient. | | | Signed consent is obtained. A time-out is performed. The skin | | | overlying the thyroid is cleaned with an alcohol solution followed by | | | iodine solution. Approximately 5 cc buffered 2% lidocaine is | | | utilized for cutaneous and deeper subcutaneous anesthesia. Utilizing | | | a 22 gauge needle for sampling is of the right thyroid nodule are | | | obtained. The samples are preliminarily evaluated by a pathologist | | | at the time of acquisition. No complications developed during the | | | procedure. IMPRESSION: Uneventful ultrasound-guided right thyroid | | | biopsy. JOB #: [id number] Digitally Released by: Faye Quintero | | | Read By: FAYE QUINTERO MD Date: 05/30/2017 08:43 | | + + + + + | Procedure Note | + + | Ish[place], Rad Results In - 11/02/2017 1:21 PM PST EXAMINATION: | | ECHO BIOPSY THYROID | | | | HISTORY: | | 2 cm inferior pole right thyroid nodule | | | | COMPARISON STUDY: | | Ultrasound thyroid 05/09/2017 | | | | FINDINGS: | | The procedure is discussed with the patient. Signed consent is obtained. A | | time-out is performed. The skin overlying the thyroid is cleaned with an | | alcohol solution followed by iodine solution. Approximately 5 cc buffered 2% | | lidocaine is utilized for cutaneous and deeper subcutaneous anesthesia. | | Utilizing a 22 gauge needle for sampling is of the right thyroid nodule are | | obtained. The samples are preliminarily evaluated by a pathologist at the | | time of acquisition. No complications developed during the procedure. | | | | IMPRESSION: | | Uneventful ultrasound-guided right thyroid biopsy. | | | | | | JOB #: [id number] | | Digitally Released by: Faye Quintero | | | | | | Read By: FAYE QUINTERO MD | | Date: 05/30/2017 08:43 | | | + + documented in this encounter Visit Diagnoses Not on filedocumented in this encounter"
--- OUTSIDE RECORDS SUMMARY | ~2019-09-01 | XMS | Encounter Summary ---
Demographics + + + | Address | [address] | | | [place] [address] | + + + | Home Phone | | + + + | Preferred Language | Unknown | + + + | Marital Status | | + + + | Restoration Affiliation | Unknown | + + + | Race | Unknown | + + + | Ethnic Group | Unknown | + + + Author + + + | Author | [facility] | | | and [place] | + + + | Organization | [facility] | | | and [...] Team Providers + +------+ + | Care Patrol Community Service Officer Name | Role | Phone | [...] | | PULMONARY [address] | [address] | | | | | [place], | [place] | | | | | [place] [address] | [place] [address] | | | | | [phone] | [phone] | | | | | | | [...]
--- OUTSIDE RECORDS SUMMARY | ~2019-09-01 | XMS | Encounter Summary ---
Demographics + + + | Address | [address] | | | [place] [address] | + + + | Home Phone [...] | Author | [facility] | | | and [place] | + + + | Organization | [facility] | [...] Team Providers + +------+ + | Care Cook Frozen Dessert Name | Role | Phone | + +------+ + PCP | Unavailable | + +------+ + Encounter Details +--------+ + + + + | Date | Type | Department | Care Team | Description | +--------+ + + + + | 06/29/ | [facility] | [place] | Faith Rodríguez | | | 2017 | Encounter | [facility] | D, LOCK OPERATOR ONE | | | | | PRIMARY CARE [address] | [facility] | | | | | J[facility], | [place] [address] | | | | | [place] [address] | [phone] | | | | | [phone] | | | +--------+ + + + [...]
--- OUTSIDE RECORDS SUMMARY | ~2019-09-01 | XMS | Encounter Summary ---
Demographics + + + | Address | [address] | | | [place] [address] | + + + | Home Phone | | + + + | Preferred Language | Unknown | + + + | Marital Status | | + + + | Buddhist Affiliation | Unknown | + + + | Race | Unknown | + + + | Ethnic Group | Unknown | + + + Author + + + | Author | [facility] | | | and [place] | + + + | Organization | [facility] | | | and [place] [...] Team Providers + +------+ + | Care Snailer Name | Role | Phone | + [...] Procedures | PA-C [address] | [place] [address] | | | | | CT Chest wo | [address] | Phone: | | | | | Contrast CT | [place], [place] | [phone] | | | | | Chest | [address] | Fax: | | | | | Abdomen wo | Phone: | [phone] | | | | | Contrast | [phone] | | | | | | | Fax: | | | | | | | [phone] | | +--------+--------+ + + + + [...] Procedures | PA-C [address] | [place] [address] | | | | | CT Chest wo | [address] | Phone: | | | | | Contrast CT | [place], [place] | [phone] | | | | | Chest | [address] | Fax: | | | | | Abdomen wo | Phone: | [phone] | | | | | Contrast | [phone] | | | | | | | Fax: | | | | | | | [phone] | | +--------+--------+ + + + + [...] | | | [address] [place] | [facility], | | | | | [place], [place] | [place] [address] | | | | | [address] | [phone] | | | | | [phone] | | | +--------+ + + + [...] | | | of spine, lumbar | [facility] [place] | | | | | | region | [address] | | | | | + + [...] | | | | | | type ([facility]) | | | | | | + [...]
--- OUTSIDE RECORDS SUMMARY | ~2019-09-01 | XMS | Encounter Summary ---
Demographics + + + | Address | [address] | | | [place] [address] | + + + | Home Phone [...] | Author | [facility] | | | and [place] | + + + | Organization | [facility] | | | and [place] [...] Team Providers + +------+ + | Care Channel Sales Director Name | Role | Phone | + +------+ + | Faith Rodríguez BANKING REPRESENTATIVE | PCP | | + +------+ + [...] | | | | | Pulmonary | [place] | [facility] | | | | | nodules | MD Nitin | IMAGING [address] | | | | | Tobacco | [address] | | | | | dependence | JOSE [address] | [place] | | | | | Procedures | [place], | [address] | | | | | PET CT Skull | [place] [address] | Phone: | | | | | Base To Mid | Phone: | [phone] | | | | | Thigh | [phone] | Fax: | | | | | | Fax: | [phone] | | | | | | [phone] | | +--------+--------+ + + + + [...] | | | [place] | [place] [address] | | | | | [address] | [phone] | | | | | [phone] | | | +--------+ + + + [...] degenerative changes lumbar spine. Dictated by: Satya Gamboa | Leon | | | PM [...]
--- OUTSIDE RECORDS SUMMARY | ~2019-09-01 | XMS | Encounter Summary ---
Demographics + + + | Address | [address] | | | [place] [address] | + + + | Home Phone [...] | [facility]ly [facility] | | | and [place]obar[place] | + + + | Organization | [facility] [...] Team Providers + +------+ + | Care Cake Mixer Name | Role | Phone | + +------+ + | Aric Palmer | PCP | | | LETTY | | | + +------+ + Reason for Visit +--------+ + | Reason | Comments | +--------+ + | Letter | Request for letter stating living conditions | +--------+ + Encounter Details +--------+ + + + + | Date | Type | Department | Care Team | Description | +--------+ + + + + | 04/23/ | Telephone | [place] | Estrellita Brasher | Letter (Request for | | 2018 | | [facility] | D, [facility] [address] | letter stating | | | | PRIMARY C[address] [place] | living conditions) | | | | [facility], | [place], [place] [address] | | | | | [place] [address] | [phone] | | | | | [phone] | | | +--------+ + + + [...]
--- OUTSIDE RECORDS SUMMARY | ~2019-09-01 | XMS | Encounter Summary ---
Demographics + + + | Address | [address] | | | [place] [address] | + + + | Home Phone [...] Author | [facility] | | | and [place] | + + + | Organization | [facility] [...] Team Providers + +------+ + | Care Manager Materials Management Name | Role | Phone | + +------+ + | Faith Rodríguez NP | PCP | | + +------+ + Reason for Visit + + + | Reason | Comments | + + + | Patient Concerns | | + + + Encounter Details +--------+ + + + + | Date | Type | Department | Care Team | Description | +--------+ + + + + | 09/07/ | Telephone | [place] [facility] | Faith Rodríguez | Patient Concerns | | 2017 | | [facility] | D, PER DIEM NURSE ONE | | | | | PRIMARY CARE [address] | [facility] | | | | | [facility], | [place] [address] | | | | | [place] [address] | [phone] | | | | | [phone] | | | +--------+ + + + [...]
--- OUTSIDE RECORDS SUMMARY | ~2019-09-01 | XMS | Encounter Summary ---
Demographics + + + | Address | [address] | | | [place] [address] | + + + | Home Phone | | + + + | Preferred Language | Unknown | + + + | Marital Status | | + + + | Adventism Affiliation | Unknown | + + + | Race | Unknown | + + + | Ethnic Group | Unknown | + + + Author + + + | Author | [facility] | | | and [place] | + + + | Organization | [facility] | | | and [place] [...] Team Providers + +------+ + | Care Education General Manager Name | Role | Phone | + +------+ + PCP | Unavailable | + +------+ + Encounter Details +--------+ + + + + | Date | Type | Department | Care Team | Description | +--------+ + + + + | 06/15/ | [facility] | [place] | Faith Rodríguez | | | 2017 | Encounter | [facility] | D, CONCHE LOADER AND UNLOADER ONE | | | | | PRIMARY CARE [address] | [facility] | | | | | [facility], | [place] [address] | | | | | [place] [address] | [phone] | | | | | [phone] | | | +--------+ + + + [...]
--- OUTSIDE RECORDS SUMMARY | ~2019-09-01 | XMS | Encounter Summary ---
Demographics + + + | Address | [address] | | | [place] [address] | + + + | Home Phone | | + + + | Preferred Language | Unknown | + + + | Marital Status | | + + + | Alevism Affiliation | Unknown | + + + | Race | Unknown | + + + | Ethnic Group | Unknown | + + + Author + + + | Author | [facility] | | | and [place] | + + + | Organization | [facility] [...] Team Providers + +------+ + | Care Chandelier Maker Name | Role | Phone | + +------+ + | Aric Palmer | PCP | | | LETTY | | | + +------+ + Reason for Visit + + + | Reason | Comments | + + + | Provide Resources | [facility] assistance with terminal computer operator care facility information | + + + Encounter Details +--------+ + + + + | Date | Type | Department | Care Team | Description | +--------+ + + + + | 01/21/ | Telephone | [place] | Estrellita Brasher | Provide Resources | | 2019 | | [facility] | D, [address] | ([facility] assistance with | | | | PRIMARY CARE [address] [place] | terminal computer operator care | | | | [facility], | [place] [address] | facility | | | | [place] [address] | [phone] | information) | | | | [phone] | | | +--------+ + + + [...]
--- OUTSIDE RECORDS SUMMARY | ~2019-09-01 | XMS | Encounter Summary ---
Demographics + + + | Address | [address] | | | [place] [address] | + + + | Home Phone [...] Author | [facility] | | | and [place] | + + + | Organization | [facility] | | | and [place] [...] Team Providers + +------+ + | Care Oracle Webcenter Consultant Name | Role | Phone | [...] | | [facility], | [place] [address] | | | | | [place] [address] | [phone] | | | | | [phone] | | | +--------+ + + + [...]
--- OUTSIDE RECORDS SUMMARY | ~2019-09-01 | XMS | Encounter Summary ---
Demographics + + + | Address | [address] | | | [place] [address] | + + + | Home Phone | | + + + | Preferred Language | Unknown | + + + | Marital Status | | + + + | Church Affiliation | Unknown | + + + | Race | Unknown | + + + | Ethnic Group | Unknown | + + + Author + + + | Author | [facility] | | | and [place] | + + + | Organization | [facility] | [...] Team Providers + +------+ + | Care Clerical Methods Analyst Name | Role | Phone | + +------+ + | Faith Rodríguez BANKING MANAGER | PCP | | + +------+ + Encounter Details +--------+ + + + + | Date | Type | Department | Care Team | Description | +--------+ + + + + | 03/13/ | Documentati | [place] | Faith Rodríguez | | | 2018 | on | [facility] | D, BANKING MANAGER ONE | | | | | PRIMARY CARE [address] | [facility] | | | | | [facility], | [place] [address] | | | | | [place] [address] | [phone] | | | | | [phone] | | | +--------+ + + + [...] qty 120 Sent certified mail: [facility] [address] [place] [address] [address]. [address] [place] [address] Tracking number: [id number] documented in this enco unter Plan of Treatment Not on filedocumented as of this encounter Visit Diagnoses Not on filedocumented in this encounter"
--- OUTSIDE RECORDS SUMMARY | ~2019-09-01 | XMS | Encounter Summary ---
Demographics + + + | Address | [address] | | | [place] [address] | + + + | Home Phone | | + + + | Preferred Language | Unknown | + + + | Marital Status | | + + + | Yazdanism Affiliation | Unknown | + + + | Race | Unknown | + + + | Ethnic Group | Unknown | + + + Author + + + | Author | [facility] | | | and [place] | + + + | Organization | [facility] | | [...] Team Providers + +------+ + | Care Install Technician Name | Role | Phone | + +------+ + | Faith Rodríguez RECRUITING ASSOCIATE | PCP | | + +------+ + Reason for Referral Diagnostic/Screening (Routine) + +--------+ + + + + | Status | Reason | Specialty | Diagnoses / | Referred By | Referred To | | | | | Procedures | Contact | Contact | + +--------+ + + + + | Canceled | | Radiology | Diagnoses | Anne, | | | | | | H/O | Faith Palmer, | | | | | | multiple | RECRUITING ASSOCIATE ONE | | | | | | pulmonary | [facility] | | | | | | nodules | [address] [place] | | | | | | Procedures | [place] | | | | | | CT Chest w | [address] | | | | | | Contrast | Phone: | | | | | | | [phone] | | | | | | | Fax: | | | | | | | [phone] | | + +--------+ + + + + Reason for Visit + + + | Reason | Comments | + + + | Other | Check up | + + + | Medication Refill | | + + + Evaluate & Treat (Routine) +--------+--------+ + + + + | Status | Reason | Specialty | Diagnoses / | Referred By | Referred To | | | | | Procedures | Contact | Contact | +--------+--------+ + + + + | Closed | | Primary Care | Diagnoses | MARTHA | Anne, | | | | | | MARTHA BURR | Faith Palmer NP | | | | | Office/Outpa | MEDICAL | ONE | | | | | tient Visit | [address] | | | | | New | ZAK ALLISON | [place] | | | | | Office/Outpa | BLDG [address] | [place] | | | | | tient visit | [address] [facility] | [address] Phone: | | | | | Est Prev | [place], [place] | [phone] | | | | | Visit New | [address] | Fax: | | | | | Age 18-39 | Phone: | [phone] | | | | | Pre Visit | [phone] | | | | | | New Age | Fax: | | | | | | 40-64 | [phone] | | +--------+--------+ + + + + Encounter Details +--------+---------+ + + + | Date | Type | Department | Care Team | Description | +--------+---------+ + + + | 03/13/ | Office | [place] | Faith Rodríguez | Pain management | | 2018 | Visit | [facility] | KEN Palmer ONE | contract agreement | | | | PRIMARY CARE [address] | [facility] [place] | (Primary Dx); Other | | | | [address], | [place] [address] | osteoarthritis of | | | | [place] [address] | [phone] | spine, lumbar | | | | [phone] | | region; H/O multiple | | | | | | pulmonary nodules | +--------+---------+ + + + Social History [...] + + + | Blood Pressure | 125/61 | 03/13/2018 1:10 PM | | | | | PDT | | + + + + + | Pulse | 50 | 03/13/2018 1:10 PM | | | | | PDT | | + + + + + | Temperature | - | - | | + + + + + | Respiratory Rate | - | - | | + + + + + | Oxygen Saturation | 93% | 03/13/2018 1:10 PM | | | | | PDT | | + + + + + | Inhaled Oxygen | - | - | | | Concentration | | | | + + + + + | Weight | 64.4 kg (142 lb) | 03/13/2018 1:10 PM | | | | | PDT | | + + + + + | Height | 175.3 cm (5' 9") | 03/13/2018 1:10 PM | | | | | PDT | | + + + + + | Body Mass Index | 20.97 | 03/13/2018 1:10 PM | | | | | PDT | | + + + + + documented in this encounter Patient Instructions Patient Instructions Janice Pride - 03/13/2018 1:00 PM PDT1. 3-month prescription f or [place] will be sent. 2. [facility] documented in this encounter Progress Notes Faith Rodríguez NP - 03/13/2018 1:00 PM PDT Patient ID: Saturnino Avila is a 72 y.o. year old male Chief Complaint: Chief Complaint Patient presents with Other Check up Medication Refill Assessment and Plan: Pain management contract agreement (Primary) Printed out 3 month Rx postdated for each month and mailed by certified mail to [facility]. Other osteoarthritis of spine, lumbar region - Hydrocodone-Acetaminophen; Take 2 tablets by mouth 2 times daily for 28 days. Please ship medication via [employer] to: Saturnino Avila [address] [place], [place] [address] Dispense: 120 tablet; Refill: 0 - Hydrocodone-Acetaminophen; Take 2 tablets by mouth 2 times daily. Dispense: 120 tabl et; Refill: 0 - Hydrocodone-Acetaminophen; Take 2 tablets by mouth 2 times daily. Dispense: 120 tabl et; Refill: 0 No Follow-up on file. Subjective: Interval history: Saturnino needs refills on his pain medicine and some of his other medications. His pain medic ation came last night from when I ordered it. He had run out of his [place] due to a mix up w [facility]. I will need to post date his [place] for 3 months at a time and send the prescriptions via certified mail. He requests that we make a note on the prescript ion to have it mailed via [employer] to his PO box. He is telling me that April 12 or , I will need to fill out more paperwork from [facility] to continue being his provider. However, he already has an authorization letter for certain medical services that I feel he needs. His CT of his chest will be due in September 2018. He states he used both inhalers today. Relapse since last visit? No Wish to taper? No Red flags? No Patient Active Problem List Diagnosis AAA (abdominal aortic aneurysm) Acid reflux disease Joyce's esophagus Benign thyroid cyst Chronic low back pain COPD (chronic obstructive pulmonary disease) Hypertension Hyperlipidemia Osteoporosis Hx of colonic polyps Pulmonary nodules Pain medication agreement signed Dermatitis Insomnia Ventral hernia without obstruction or gangrene Dysphagia Hyperplasia of prostate Current Outpatient Prescriptions Medication Sig Dispense Refill [...] for 28 days. Please ship medication via [employer] to: Saturnino Avila [address] [place], [place] [address] 120 tablet 0 HYDROcodone-acetaminophen (NORCO) 5-325 mg per tablet Take 2 tablets by mouth 2 times d aily. 120 tablet 0 HYDROcodone-acetaminophen (NORCO) 5-325 mg per tablet [...] by mouth nightly. Take 2 tablets at [facility] ht 30 tablet No current facility-administered medications for this visit. Review of Systems Constitutional: Negative for chills, fatigue and fever. Cardiovascular: Negative for leg swelling. Gastrointestinal: Positive for diarrhea (sometimes). Negative for abdominal distention and constipation. Genitourinary: Negative for difficulty urinating. Musculoskeletal: Positive for arthralgias and back pain. Skin: Positive for rash (on hands from sun and heat exposure. They burn and itch. He pearl ns with alcohol and applies vitamin E cream, advised to stop using alcohol and instead use e ucerin cream for flare ups). Psychiatric/Behavioral: Negative for agitation and dysphoric mood. Objective: Vitals: BP 125/61 | Pulse 50 | Ht 1.753 m (5' 9") | Wt 64.4 kg (142 lb) | SpO2 93% | BMI 20.97 kg/m Physical Exam Constitutional: He is oriented to person, place, and time. He appears well-developed and we ll-nourished. HENT: Head: Normocephalic and atraumatic. Cardiovascular: Normal rate, regular rhythm, normal heart sounds and intact distal pulses. Pulmonary/Chest: Effort normal and breath sounds normal. No respiratory distress. He has no wheezes. He has no rales. Abdominal: Soft. Bowel sounds are normal. Musculoskeletal: He exhibits no edema. Neurological: He is alert and oriented to person, place, and time. Skin: Rash (maculopapular rash on backs of hands) noted. Psychiatric: He has a normal mood and affect. His behavior is normal. Judgment and thought content normal. Vitals reviewed. PDMP: Appropriate UDS: Not due. Entered by Terry Pride CMSP, acting as scribe for EPI Wilburn. The documentation recorded by the scribe accurately reflects the service I personally perfo ed and the decisions made by me. Electronically signed by: EPI Wilburn 03/19/2018 10:06 Note: Part of this report was transcribed using voice recognition software. Every effort wa s made to ensure accuracy. However, inadvertent computerized clinical research physician errors may be pre sent. documented in this encounter Plan of Treatment + +---------+--------+ + + | Name | Type | Priori | Associated Diagnoses | Order Schedule | | | | ty | | | + +---------+--------+ + + | CT Chest w Contrast | Imaging | Routin | H/O multiple | Expected: | | | | e | pulmonary nodules | 09/19/2018, Expires: | | | | | | 03/19/2019 | + +---------+--------+ + + documented as of this encounter Visit Diagnoses + + | Diagnosis | + + | Pain management contract agreement - Primary Reserved for inherently not codable | | concepts WITHOUT codable children | + + | Other osteoarthritis of spine, lumbar region | + + | H/O multiple pulmonary nodules Personal history of other diseases of respiratory | | system | + + documented in this encounter
--- OUTSIDE RECORDS SUMMARY | ~2019-09-01 | XMS | Encounter Summary ---
Demographics + + + | Address | [address] | | | [place] [address] | + + + | Home Phone [...] Author | [facility] | | | and [place] | + + + | Organization | [facility] | | [...] Team Providers + +------+ + | Care Laser Systems Engineer Name | Role | Phone | [...] + + + + | 11/22/ | Telephone | [place] | Faith Rodríguez | Medication Refill | | 2017 | | [facility] | D, OBSTETRICAL TECH ONE | | | | | PRIMARY CARE [address] | [facility] | | | | | JET [facility], | [place] [address] | | | | | [place] [address] | [phone] | | | | | [phone] | | | +--------+ + + + [...] not specified - Primary | + + documented in this encounter"
--- OUTSIDE RECORDS SUMMARY | ~2019-09-01 | XMS | Encounter Summary ---
Demographics + + + | Address | [address] | | | [place] [address] | + + + | Home Phone | | + + + | Preferred Language | Unknown | + + + | Marital Status | | + + + | Sikh Affiliation | Unknown | + + + | Race | Unknown | + + + | Ethnic Group | Unknown | + + + Author + + + | Author | [facility] | | | and [place] | + + + | Organization | [facility] | | | and [...] Team Providers + +------+ + | Care Choke Setter Name | Role | Phone | [...] + | 10/12/ | Telephone | [facility] | Deangelo Little | Other (records sent) | | 2017 | | [facility] | MD Brendan [address] | | | | | [place], | [address] [place] | | | | | [place] [address] | [place] [address] | | | | | [phone] | [phone] | | | | | | | [...]
--- OUTSIDE RECORDS SUMMARY | ~2019-09-01 | XMS | Encounter Summary ---
Demographics + + + | Address | [address] | | | [place] [address] | + + + | Home Phone | | + + + | Preferred Language | Unknown | + + + | Marital Status | | + + + | Voodoo Affiliation | Unknown | + + + | Race | Unknown | + + + | Ethnic Group | Unknown | + + + Author + + + | Author | [facility] | | | and [place] | + + + | Organization | [facility] | | | and [...] Team Providers + +------+ + | Care Nuclear Physician Name | Role | Phone | + +------+ + PCP | Unavailable | + +------+ + Encounter Details +--------+ + + + + | Date | Type | Department | Care Team | Description | +--------+ + + + + | 05/08/ | [facility] | [place] | Faith Rodríguez | | | 2017 | Encounter | [facility] | D, BUGGY LOADER ONE | | | | | PRIMARY CARE [address] | [facility] | | | | | [facility], | [place] [address] | | | | | [place] [address] | [phone] | | | | | [phone] | | | +--------+ + + + [...] | + +--------+ + + + | T4, FREE | Routin | 05/08/2017 | | Results for this | | | e | 8:29 AM | | procedure are in the | | | | PDT | | results section. | + +--------+ + + + documented in this encounter Results T4, Free (05/08/2017 8:29 AM PDT) + +-------+ + + + | Component | Value | Ref Range | Performed | Pathologist | | | | | At | Signature | + +-------+ + + + | FT4 | 0.76 | 0.76 - 1.46 | EXTERNAL | | | | | ng/dL | LAB | | + +-------+ + [...]
--- OUTSIDE RECORDS SUMMARY | ~2019-09-01 | XMS | Encounter Summary ---
Demographics + + + | Address | [address] | | | [place] [address] | + + + | Home Phone [...] Author | [facility] | | | and Escobarana | + + + | Organization | [facility] | | [...] Team Providers + +------+ + | Care Dot Compliance Specialist Name | Role | Phone | + +------+ + | Faith Rodríguez DIRECTOR GOVERNMENT | PCP | | + +------+ + Encounter Details +--------+---------+ + + + | Date | Type | Department | Care Team | Description | +--------+---------+ + + + | 08/13/ | Office | [facility] | Aric Palmer | Pain management | | 2018 | Visit | [facility] | [address] | contract agreement | | | | [facility] [address] | [employer], | (Primary Dx); | | | | [place], | [place] [address] | Chronic midline low | | | | [place] [address] | [phone] | back pain with | | | | [phone] | | bilateral sciatica; | | | | | | Encounter for | | | | | | medical examination | | | | | | to establish care | +--------+---------+ + + + Social History [...] + + + | Blood Pressure | 147/62 | 08/13/2018 9:35 AM | | | | | PDT | | + + + + + | Pulse | 85 | 08/13/2018 9:35 AM | | | | | PDT | | + + + + + | Temperature | 36.6 C (97.8 F) | 08/13/2018 9:35 AM | | | | | PDT | | + + + + + | Respiratory Rate | - | - | | + + + + + | Oxygen Saturation | 94% | 08/13/2018 9:35 AM | | | | | PDT | | + + + + + | Inhaled Oxygen | - | - | | | Concentration | | | | + + + + + | Weight | 65.5 kg (144 lb 8 | 08/13/2018 9:35 AM | | | | oz) | PDT | | + + + + + | Height | 175.3 cm (5' 9") | 08/13/2018 9:35 AM | | | | | PDT | | + + + + + | Body Mass Index | 21.34 | 08/13/2018 9:35 AM | | | | | PDT | | + + + + + documented in this encounter Patient Instructions Patient Instructions Aric Palmer PA-C - 08/13/2018 9:30 AM PDT Understanding Opioid Medicines for Pain Management Opioids are medicines that can help reduce pain. They are stronger than most ihbi-cnl-ysyzx er pain relievers and must be prescribed by a healthcare provider. They can be used to treat both acute and chronic pain that ranges from moderate to severe. While opioids can be safe and effective when used correctly, they do come with serious risks and side effects. For thi s reason, they should only be considered as an option if other medicines or treatments have not done enough to relieve or manage pain. What is pain? Pain is your body s way of telling you something is wrong. It makes you pull your hand aw ay from a flame or avoid walking on an injured leg. Pain starts in receptor cells found bene ath the skin and in organs throughout the body. When you are sick or injured, these receptor cells send signals along nerve pathways to the spinal cord, which then send the signals to the brain. The brain interprets the signals as pain. In response, it sends back signals to p rotect the body. The brain also releases its own natural painkillers called endorphins to he lp reduce pain. Once the source of the pain heals, the pain usually goes away. Types of pain Pain can one be of two types: acute or chronic. Both types respond to treatment. Acute pain typically lasts fewer than 3 months. It goes away when the cause is treated. Common causes of acute pain include injury or illness. Surgery can lead to short-term pain d uring healing. And women experience acute pain during and after childbirth. In some cases, a cute pain can lead to chronic pain over time. Chronic pain typically lasts longer than 3 months. This includes pain that comes and goe s or that is continuous. Chronic pain may be due to an ongoing health problem, such as arthr itis. Or it may linger after an injury that has healed, such as a broken bone. Problems with the body s pain-control system may also lead to chronic pain. Sometimes, chronic pain can occur with no clear cause. The pain cycle Pain can affect all aspects of your life for example, sleep, mood, activity, and energy l evel are all affected by pain. Being tired, depressed, and inactive make the pain worse and harder to cope with. This leads to a cycle of pain. How opioids work Opioids work by attaching to special receptors found in the brain, spinal cord, and other o rgans. When opioids attach to these receptors, they can block or suppress how you feel pain. Opioids can also make you feel good or relaxed by affecting areas of the brain that produce feelings of pleasure. Types of opioids There are two types of opioids: short-acting/immediate-release (SA/IR) and long-acting/exte nded-release (LA/ER). Short-acting opioids work faster than long-acting opioids but give hans n relief for only short periods. Long-acting opioids work slower than short-acting opioids b ut give pain-relief for longer periods. Many current opioids come in both short- and long-ac ting formulas. Some examples of opioids include: Codeine with acetaminophen Fentanyl Hydrocodone (with or without acetaminophen) Hydromorphone Meperidine Methadone Morphine Oxycodone (with or without acetaminophen) Oxycodone with naloxone Tramadol If you are prescribed opioids, you will usually be started on a short-acting type at the lo west dosage. The dosage may then be adjusted as needed based on your response to the medicin e and further follow-up with your healthcare provider. If appropriate, you may transition to using a long-acting type opioid. In some cases, you may be prescribed both types of opioids to help manage different types of pain. Any changes or adjustments will also depend on your level of pain tolerance and tolerance of side effects. Studies show that opioids provide short-term benefits for moderate to severe pain. But the benefits of long-term use of opioids for treating pain remain unclear. In general, you shoul d only remain on opioids if they continue to improve pain and function without increasing th e risks to your health. How opioids are given Most opioids are taken by mouth. They often come in pill form, but some may come in the for m of liquids and even sweetened lozenges. Certain opioids also may be injected under the ski n, into a muscle, or into a vein. Or they may be absorbed through the skin via a patch. Know your options Keep in mind that opioids are not the only option for treating pain. Non-opioid options may work just as well and have fewer risks and side effects. Non-opioid options can include: Other pain relievers, such as acetaminophen or nonsteroidal anti-inflammatory drugs (NSA IDs) such as ibuprofen or naproxen Other classes of medicines such as anticonvulsants, antidepressants, and muscle relaxers Exercise and physical therapy Cognitive behavioral therapy, which can help you learn different ways to respond and advertising copy writer e with pain Mind/body therapies such as deep breathing, distraction, visualization, meditation, or b iofeedback Complementary therapies such as massage, acupuncture and acupressure, or chiropractic ca re Various procedures, such as transcutaneous electrical nerve stimulation (TENS), implanta tion of a spinal pump, and nerve ablation Don't take opioids in combination with benzodiazepines. Serious risks are associated with c ombining opioids with benzodiazepines. These risks include extreme sleepiness, slowed breath ing, and . Let your healthcare provider know if you are taking benzodiazepines. Date Last Reviewed: 05/23/201719994085-1196 [employer]. [address] [place] [address], [place] [address]. All righ ts reserved. This information is not intended as a substitute for professional medical care. Always follow your healthcare professional's instructions. Managing Chronic Pain Being in pain can be exhausting. You may find you have trouble working, sleeping, or just d oing day-to-day tasks. But you can learn to manage pain, feel better, and regain control of your life. Understanding chronic pain Chronic pain is a serious medical problem. It is defined as pain that lasts longer than 3 m onths. Chronic pain includes pain that you feel regularly, even if it comes and goes. The pa in may be from an ongoing injury or health problem. Or it may be because of a chronic pain s yndrome, such as fibromyalgia. Sometimes pain persists when no cause can be found. Pain should be treated You have a right to have your pain treated. Untreated chronic pain can affect your overall health. It can lead to depression, anxiety, anger, and personality changes. It can also disr upt work, sleep, relationships, and other aspects of normal life. It may not be possible to relieve all of your pain. But it can be reduced to a level you can cope with. Your role in treatment Your healthcare provider will work closely with you on a plan to manage your pain. But it s up to you to put this plan into action. Control of chronic pain is done mainly through se lf-management. This means that you take an active role in your care. Getting support from fa junaid and friends is important too. Planning your treatment Your healthcare provider will first look for a cause of your pain that can be treated. He o r she will also assess your pain level. This may be done by asking you to rate your pain on a scale from 1 (low pain) to 10 (severe pain). Your provider will also ask you to describe t he pain. For example, is your pain sharp or dull? Is it constant or does it come and go? You may be asked to keep a pain log. This is a diary in which you track your pain. It may help identify things that tend to make your pain worse. You and your healthcare provider can make a plan to help prevent and cope with pain on a daily basis. In some cases, you may be refer red to a special pain program or clinic. Your treatment plan may include: Medicines Complementary therapies Mind and body therapies Other medical treatments Getting physical activity Medicines Medicine will most likely be a part of your treatment plan. Your provider will evaluate whi ch are the best medicines for your pain. You may use jfqm-ayg-pzvvker or prescription medici ntahaniel. You may need to take more than one medicine. It may take some time to find the best med icine or combination of medicines for your pain. Take all medicines as directed. Pain medici nathaniel can be used in many ways. You may take medicines: Every day to help stay ahead of the pain so that it doesn t flare up At times when pain is worse than usual Before activities that tend to trigger pain To decrease sensitivity to pain Medicines for chronic pain include: Nonsteroidal anti-inflammatory medicines (NSAIDs) for pain from swelling and inflammatio n. Your provider may prescribe a type of NSAID called a CHEN inhibitor. Acetaminophen Anticonvulsants to treat nerve pain called neuropathy Antidepressants to treat neuropathy Muscle relaxants for muscle spasms Topical medicines. These are put on the skin. Opioids, or narcotics, to treat severe pain. These very strong medicines can help ease c ertain kinds of pain. They most often are used for short periods of time. Your provider will monitor your care very closely if you take opioids. Complementary therapies These are treatments that can be used along with medical care to help relieve pain. Jacinto trevino a licensed practitioner with experience treating chronic pain. Talk with your healthcare p milly about using complementary therapies such as: Massage Acupuncture and acupressure Chiropractic Vitamins or herbal supplements Mind/body therapies The brain and the body are both part of the pain response. The brain reads the pain signals from the body. This means that your mind has some control over how pain signals are process ed. Mind/body therapies may help change how your brain reads pain signals. They may be learn ed with the help of a trained therapist or in a class. They include: Deep breathing Distraction Visualization Meditation Biofeedback Other medical treatments If other treatments don t work for you, one of these procedures or devices may help: Nerve blocks to numb nerves in a painful area Trigger point injections for painful muscles Steroid injections for joint pain Transcutaneous electrical nerve stimulation (TENS) to block pain signals to the brain Spinal stimulation to block spinal pain Implanted spinal pump that contains pain medicine Ablation using heat, cold, or chemicals to destroy painful nerves Getting physical activity Being physically active has many benefits. It can improve your ability to cope with pain. I t may also help improve your mood, sleep, and overall health. Your healthcare provider can h elp you plan an exercise program that s right for your needs. This may include: Stretching and flfux-th-lyyipa exercises Low-impact exercise such as walking, biking, swimming, and other water exercise Strength training using light weights Walking up the stairs instead of taking the elevator Riding a bike instead of driving Parking your car farther from your destination You may need to not do high-impact activities. These involve jumping, running, or sudden st arts, stops, or changes of direction. If you haven t exercised in a long time or you have physical limitations, your healthcare provider may refer you to a physical therapist. He or she can teach you stretches and exercises that fit your condition and fitness level. Being active and healthy A healthier lifestyle makes it easier to cope with pain and function better. Follow these t ips: Choose a balance of healthy foods and drinks. Limit alcohol and caffeine. Go to bed at about the same time each day. Don t let pain keep you from others. Spend time with friends and family. Keep your mind active. Read books or take classes. If you re not working, volunteer or join a club or social group. Getting support A support group lets you talk with others who also have chronic pain. Chronic pain support groups can help you feel less isolated. They can also give you tips for coping with pain. To find a local support group, contact your nearest hospital or pain clinic. You may also want to try counseling. Counseling can help you learn coping skills and method s such as visualization. It can also help with mood problems. When choosing a counselor, loo k for someone who has worked with people who have chronic pain. See your provider for regular visits and let him or her know how well treatments are workin g for you. Also reach out to family and friends for help and support. For more support and information, contact these groups: [employer], www.aapainmanage.org [employer], www.painmed.org [employer], www.theacpa.org National Pain Foundation, www.thenationalpainfoundation.org Date Last Reviewed: 09/22/201719997158-9772 [employer]. [address] [place] [address], [place] [address]. All righ ts reserved. This information is not intended as a substitute for professional medical care. Always follow your healthcare professional's instructions. Acetaminophen; Hydrocodone tablets or capsules Brand Names: Anexsia, Lorcet, Lorcet HD, Lorcet Plus, Lortab, Norman, Verdrocet, Vicodin, Vi codin ES, Vicodin HP, Xodol What is this medicine? ACETAMINOPHEN; HYDROCODONE (a set a FLORES isabel fen; aydee droe KOE done) is a pain reliever. It is used to treat moderate to severe pain. How should I use this medicine? Take this medicine by mouth with a glass of water. Follow the directions on the prescriptio n label. You can take it with or without food. If it upsets your stomach, take it with food. Do not take your medicine more often than directed. A special MedGuide will be given to you by the pharmacist with each prescription and refill . Be sure to read this information carefully each time. Talk to your hoop riveting machine operator helper regarding the use of this medicine in children. Special care may be needed. What side effects may I notice from receiving this medicine? Side effects that you should report to your doctor or health progressive care unit registered nurse as soon as p ossible: allergic reactions like skin rash, itching or hives, swelling of the face, lips, or tong ue breathing problems confusion redness, blistering, peeling or loosening of the skin, including inside the mouth signs and symptoms of low blood pressure like dizziness; feeling faint or lightheaded, f alls; unusually weak or tired trouble passing urine or change in the amount of urine yellowing of the eyes or skin Side effects that usually do not require medical attention (report to your doctor or health progressive care unit registered nurse if they continue or are bothersome): constipation dry mouth nausea, vomiting tiredness What may interact with this medicine? This medicine may interact with the following medications: alcohol antiviral medicines for HIV or AIDS atropine antihistamines for allergy, cough and cold certain antibiotics like erythromycin, clarithromycin certain medicines for anxiety or sleep certain medicines for bladder problems like oxybutynin, tolterodine certain medicines for depression like amitriptyline, fluoxetine, sertraline certain medicines for fungal infections like ketoconazole and itraconazole certain medicines for Parkinson's disease like benztropine, trihexyphenidyl certain medicines for seizures like carbamazepine, phenobarbital, phenytoin, primidone certain medicines for stomach problems like dicyclomine, hyoscyamine certain medicines for travel sickness like scopolamine general anesthetics like halothane, isoflurane, methoxyflurane, propofol ipratropium local anesthetics like lidocaine, pramoxine, tetracaine MAOIs like Carbex, Eldepryl, Marplan, Nardil, and Parnate medicines that relax muscles for surgery other medicines with acetaminophen other narcotic medicines for pain or cough phenothiazines like chlorpromazine, mesoridazine, prochlorperazine, thioridazine rifampin What if I miss a dose? If you miss a dose, take it as soon as you can. If it is almost time for your next dose, ta ke only that dose. Do not take double or extra doses. Where should I keep my medicine? Keep out of the reach of children. This medicine can be abused. Keep your medicine in a saf e place to protect it from theft. Do not share this medicine with anyone. Selling or giving away this medicine is dangerous and against the law. This medicine may cause accidental overdose and if it taken by other adults, children , or pets. Mix any unused medicine with a substance like cat litter or coffee grounds. Then throw the medicine away in a sealed container like a sealed bag or a coffee can with a lid. Do not use the medicine after the expiration date. Store at room temperature between 15 and 30 degrees C (59 and 86 degrees F). What should I tell my health care provider before I take this medicine? They need to know if you have any of these conditions: brain tumor Crohn's disease, inflammatory bowel disease, or ulcerative colitis drug abuse or addiction head injury heart or circulation problems if you often drink alcohol kidney disease or problems going to the bathroom liver disease lung disease, asthma, or breathing problems an unusual or allergic reaction to acetaminophen, hydrocodone, other opioid analgesics, other medicines, foods, dyes, or preservatives or trying to get breast-feeding What should I watch for while using this medicine? Tell your doctor or health progressive care unit registered nurse if your pain does not go away, if it gets wors e, or if you have new or a different type of pain. You may develop tolerance to the medicine . Tolerance means that you will need a higher dose of the medicine for pain relief. Toleranc e is normal and is expected if you take the medicine for a long time. Do not suddenly stop taking your medicine because you may develop a severe reaction. Your b anika becomes used to the medicine. This does NOT mean you are addicted. Addiction is a behavi or related to getting and using a drug for a non-medical reason. If you have pain, you have a medical reason to take pain medicine. Your doctor will tell you how much medicine to take. If your doctor wants you to stop the medicine, the dose will be slowly lowered over time to avoid any side effects. There are different types of narcotic medicines (opiates). If you take more than one type a t the same time or if you are taking another medicine that also causes drowsiness, you may h ave more side effects. Give your health care provider a list of all medicines you use. Your doctor will tell you how much medicine to take. Do not take more medicine than directed. Petros l emergency for help if you have problems breathing or unusual sleepiness. Do not take other medicines that contain acetaminophen with this medicine. Always read pennie magana carefully. If you have questions, ask your doctor or pharmacist. If you take too much acetaminophen get medical help right away. Too much acetaminophen can be very dangerous and cause liver damage. Even if you do not have symptoms, it is important to get help right away. You may get drowsy or dizzy. Do not drive, use machinery, or do anything that needs mental alertness until you know how this medicine affects you. Do not stand or sit up quickly, katie cially if you are an older patient. This reduces the risk of dizzy or fainting spells. Alcoh ol may interfere with the effect of this medicine. Avoid alcoholic drinks. The medicine will cause constipation. Try to have a bowel movement at least every 2 to 3 da ys. If you do not have a bowel movement for 3 days, call your doctor or health care professi onal. Your mouth may get dry. Chewing sugarless gum or sucking hard candy, and drinking plenty of water may help. Contact your doctor if the problem does not go away or is severe. NOTE:This sheet is a summary. It may not cover all possible information. If you have questi ons about this medicine, talk to your doctor, pharmacist, or health care provider. Copyright 2018 [employer] documented in this encounter Progress Notes Aric Palmer PA-C - 08/13/2018 9:30 AM PDTFormatting of this note might be di fferent from the original. Patient ID: Saturnino Avila is a 73 y.o. year old male Chief Complaint: No chief complaint on file. Assessment and Plan: Chronic low back pain Pt presents today to establish a pain management contract with a new provider at the [facility]. He typically uses Norman 5/325 2 tabs BID #112 Pt gets his medications from the [facility]. I will provide 5 refills for this medicat ion. He will have to come in q 6 months and provide a UDS for the next script. UDS done today. Pill count of 7 tabs left. Fill date of 05/03/18 by Faith CHOWDARY No PDMP on file due to filled at [place]. Spent 30 minutes face to face with patient discussing treatment options, medications, OPI m edications and SE. Encounter for medical examination to establish care Pt presents today to establish a chronic pain management care plan with David Palmer PA-C at [facility] today. Subjective: Pt presents today to establish a pain management contract with a new provider at the [facility]. He typically uses Norman 5/325 2 tabs BID #112 Pt gets his medications from the [facility]. Pill count of 7 tabs left. Fill date of 05/03/18 by Faith CHOWDARY No PDMP on file due to filled at [place]. Pt denies misuse or abuse of his OPI medication; denies addiction issues. Allergies: Allergies Allergen Reactions Aspirin Nausea Only and Swelling Bee Venom Anaphylaxis Uncoded Nonscreenable Allergen [place], patient states he gets red spots and they burn and get itchy. Codeine Nausea And Vomiting Medications: Current Outpatient Prescriptions Medication Sig Dispense Refill albuterol (PROVENTIL HFA) 90 mcg/puff inhaler Inhale 2 puffs into the lungs every 4 jonnie rs as needed for Wheezing or Shortness of Breath for up to 90 days. 18 g 3 B Complex Vitamins (VITAMIN B COMPLEX) [...] by mouth nightly. Take 2 tablets at [facility] ht 90 tablet 0 No current facility-administered [...] Encounter for medical examination to establish care Social History: Social History Social History Marital [...] Social History Narrative No narrative on file Family History: Family History Problem Relation Age of Onset Lung cancer Mother Hypertension Mother Lung cancer Father Review of Systems Constitutional: Negative for chills, fatigue and fever. Respiratory: Negative for cough and shortness of breath. Cardiovascular: Negative for chest pain and palpitations. Gastrointestinal: Negative for abdominal pain, diarrhea, nausea and vomiting. Musculoskeletal: Positive for arthralgias, back pain and gait problem. Neurological: Negative for dizziness, seizures, weakness, numbness and headaches. Psychiatric/Behavioral: Negative for agitation and behavioral problems. Objective: Vitals: BP 147/62 | Pulse 85 | Temp 36.6 C (97.8 F) (Temporal) | Ht 1.753 m (5' 9") | Wt 65 .5 kg (144 lb 8 oz) | SpO2 94% | BMI 21.34 kg/m Physical Exam Constitutional: He is oriented to person, place, and time. He appears well-developed and we ll-nourished. No distress. HENT: Head: Normocephalic. Neck: Neck supple. No JVD present. Carotid bruit is not present. No thyromegaly present. Cardiovascular: Normal rate, regular rhythm, normal heart sounds and intact distal pulses. Exam reveals no gallop and no friction rub. No murmur heard. Pulmonary/Chest: Effort normal and breath sounds normal. No respiratory distress. He has no wheezes. He has no rales. He exhibits no tenderness. Abdominal: Soft. There is no tenderness. Musculoskeletal: He exhibits tenderness. Arms: Neurological: He is alert and oriented to person, place, and time. Skin: Skin is warm and dry. Psychiatric: He has a normal mood and affect. His behavior is normal. Judgment and thought content normal. A total of 30minutes was spent [id number] with patient, greater than 50% of which was ded icated to education and care coordination regarding the diagnosis(es) listed above. Electronically signed by: Aric Palmer PA-C 08/13/2018 10:19 documented in this encounter Plan of Treatment Not on filedocumented as of this encounter Results Drugs of Abuse, Screen, Urine (08/13/2018 10:20 AM PDT) + + + + + + | Component | Value | Ref Range | Performed | Pathologist | | | | | At | Signature | + + + + + + | Cannabinoid | Negative | Negative | [facility] | | | s Screen, | | | [facility] | | | Urine | | | [facility] | | | | | | [facility] | | + + + + + + | Cocaine | Negative | Negative | [facility] | | | Screen, | | | [facility] | | | Urine | | | [facility] | | | | | | LAB[facility]ORY | | + + + + + + | Phencyclidi | Negative | Negative | [facility] | | | ne Screen, | | | [facility] | | | Urine | | | [facility] | | | | | | LAB[facility]ATORY | | + + + + + + | Methampheta | Negative | Negative | [facility] | | | mine | | | [facility] | | | Screen, | | | [facility] | | | Urine | | | LABORATORY | | + + + + + + | Opiates | Positive (A) | Negative | [facility] | | | Screen, | | | [facility] | | | Urine | | | [facility] | | | | | | LAB[facility]ATORY | | + + + + + + | Amphetamine | Negative | Negative | [facility] | | | Screen, | | | [facility] | | | Urine | | | [facility] | | | | | | LAB[facility]ORY | | + + + + + + | Benzodiazep | Negative | Negative | [facility] | | | wendi | | | [facility] | | | Screen, | | | [facility] | | | Urine | | | LABORATORY | | + + + + + + | Tricyclic | Positive (A) | Negative | [facility] | | | Antidepress | | | [facility] | | | ants | | | [facility]OSPITAL | | | Screen, | | | LABORATORY | | | Urine | | | | | + + + + + + | Methadone | Negative | Negative | [facility] | | | Screen, | | | [facility] | | | Urine | | | [facility] | | | | | | LAB[facility]ORY | | + + + + + + | Barbiturate | Negative | Negative | [facility] | | | s Screen, | | | [facility] | | | Urine | | | [facility] | | | | | | LAB[facility]ORY | | + + + + + + | Oxycodone | Negative | Negative | [facility] | | | Screen, | | | [facility] | | | Urine | | | [facility] | | | | | | LAB[facility]ORY | | + + + + + + | Propoxyphen | Negative | Negative | [facility] | | | e Screen, | | | [facility] | | | Urine | | | [facility] | | | | | | LAB[facility]ORY | | + + + + + + | Buprenorphi | Negative | Negative | [facility] | | | ne Screen, | | | [facility] | | | Urine | | | [facility] | | | | | | LAB[facility]ORY | | + + + + + + + + | Specimen | + + | Urine | + + + + + | Narrative | Performed At | + + + | Qualitative drug screen intended for emergency medical use only. Not | [facility] | | intended for legal purposes. Chain of Custody not maintained. | HOSPITAL | | Confirmation of Positive results must be ordered by the attending | LABORATORY | | physician. [id number] drugs may cross react with some methods. | | | Call the laboratory if further information is needed. | | | AMPHETAMINE 500 ng/mL BARBITURATES | | | 200 ng/mL BENZODIAZEPINES | | | 150 ng/mL BUPRENORPHINE 10 ng/mL COCAINE | | | 150 ng/mL METHAMPHETAMINES | | | 500 ng/mL METHADONE | | | 200 ng/mL OPIATES 100 ng/mL | | | OXYCODONE 100 ng/mL PHENCYCLIDINE | | | 25 ng/mL PROPOXYPHENE | | | 300 ng/mL CANNABINOIDS 50 ng/mL | | | TRICYCLIC ANTIDEPRES 300 ng/mL | | + + + + + + + + | Performing | Address | City/State/Zipcode | Phone Number | | Organization | | | | + + + + + | [facility] | [address] | [place] [address] | [phone] | | [facility] | | | | + + + + + documented in this encounter Visit Diagnoses + + | Diagnosis | + + | Pain management contract agreement - Primary Reserved for inherently not codable | | concepts WITHOUT codable children | + + | Chronic midline low back pain with bilateral sciatica | + + | Encounter for medical examination to establish care | + + documented in this encounter
--- OUTSIDE RECORDS SUMMARY | ~2019-09-01 | XMS | Encounter Summary ---
Demographics + + + | Address | [address] | | | [place] [address] | + + + | Home Phone [...] | Author | [facility] | | | and [place] | + + + | Organization | [facility] | | [...] Team Providers + +------+ + | Care Associate Business Analyst Name | Role | Phone | [...] Medication Refill | | 2019 | | [facility] | [address] | | | | | [address] | [facility], | | | | | [place] [facility], | [place] [address] | | | | | [place] [address] | [phone] | | | | | [phone] | | | +--------+--------+ + + + [...]
--- OUTSIDE RECORDS SUMMARY | ~2019-09-01 | XMS | Encounter Summary ---
Demographics + + + | Address | [address] | | | [place] [address] | + + + | Home Phone [...] + | Author | [facility] | | | and [place] | + + + | Organization | [facility] | | | and [...] Team Providers + +------+ + | Care Real Estate Inspector Name | Role | Phone | [...] | +--------+ + + + + | 11/28/ | Telephone | [facility] | Faith Rodríguez | Results | | 2018 | | [facility] | [address] | | | | | [address] | [facility] | | | | | [facility], | [place], [place] [address] | | | | | [place] [address] | [phone] | | | | | [phone] | | | +--------+ + + + [...]
--- OUTSIDE RECORDS SUMMARY | ~2019-09-01 | XMS | Encounter Summary ---
Demographics + + + | Address | [address] | | | [place] [address] | + + + | Home Phone [...] Author | [facility] | | | and [place] | + + + | Organization | [facility] | [...] Team Providers + +------+ + | Care [employer] Fire Support Planner Name | Role | Phone | + +------+ + | Faith Rodríguez NP | PCP | | + +------+ + Encounter Details +--------+ + + + + | Date | Type | Department | Care Team | Description | +--------+ + + + + | 03/08/ | Abstract | [facility] | Janice Pride | | | 2017 | | [facility] | | | | | | PRIMARY [address] | | | | | | [facility], | | | | | | [place] [address] | | | | | | [phone] | | | +--------+ + + + [...] | + +--------+ + + + | EXTERNAL: | Routin | 04/21/2011 | | Results for this | | COLONOSCOPY | e | | | procedure are in the | | | | | | results section. | + +--------+ + + + documented in this encounter Results EXTERNAL: COLONOSCOPY (04/21/2011) + + + + + + | Component | Value | Ref Range | Performed | Pathologist | | | | | At | Signature | + + + + + + | Colonoscopy | doneComment: [place], polyps | | | | | | | | | | | Impression, | | | | | | External | | | | | + + + + + + documented in this encounter Visit Diagnoses Not on filedocumented in this encounter"
--- OUTSIDE RECORDS SUMMARY | ~2019-09-01 | XMS | Encounter Summary ---
Demographics + + + | Address | [address] | | | [place] [address] | + + + | Home Phone [...] | Author | [facility] | | | and [place] | + + + | Organization | [facility] | | | and [...] Providers + +------+ + | Care Manager Metrology Name | Role | Phone | + +------+ + | Faith Rodríguez GRADES 1 THRU 6 VISITING TEACHER | PCP | | + +------+ + Encounter Details +--------+ + + + + | Date | Type | Department | Care Team | Description | +--------+ + + + + | 07/20/ | [facility] | [facility] | Faith Rodríguez | | | 2017 | Encounter | [facility] | [address], [address] | | | | | [address] | [facility] | | | | | [facility], | [place] [address] | | | | | [place] [address] | [phone] | | | | | [phone] | | | +--------+ + + + [...] + + | COMPREHENSIVE | Routin | 07/20/2017 | | Results for this | | METABOLIC PANEL | e | 1:35 PM | | procedure are in the | | | | PDT | | results section. | + +--------+ + + + | BUN | Routin | 07/20/2017 | | Results for this | | | e | 1:07 PM | | procedure are in the | | | | PDT | | results section. | + +--------+ + + + | CREATININE | Routin | 07/20/2017 | | Results for this | | | e | 1:07 PM | | procedure are in the | | | | PDT | | results section. | + +--------+ + + + documented in this encounter Results Comprehensive Metabolic Panel (07/20/2017 1:35 PM PDT) + +-------+ + + + [...] +-------+ + + + | CO2 | 28 | 23 - 34 mmol/L | EXTERNAL | | | | | | LAB | | + +-------+ + + + | Anion Gap | 6 | 7 - 16 | EXTERNAL | | | | | | LAB | | + +-------+ + + + | Calcium | 8.5 | 8.3 - 10.0 | EXTERNAL | | | | | mg/dL | LAB | | + +-------+ + + + | Glucose | 114 | 70 - 110 mg/dL | EXTERNAL | | | | | | LAB | | + +-------+ + + + | BUN, Bld | 18 | 5 - 26 mg/dL | EXTERNAL | | | | | | LAB | | + +-------+ + + + | Creatinine | 0.88 | 0.70 - 1.40 | EXTERNAL | | | | | mg/dL | LAB | | + +-------+ + + + | BUN/Creatin | 20.5 | 7.0 - 24.0 | EXTERNAL | [...] +-------+ + + + | Protein, | 7.1 | 6.6 - 8.5 g/dL | EXTERNAL | | | Total | | | LAB | | + +-------+ + + + | Albumin | 3.6 | 3.0 - 4.5 g/dL | EXTERNAL | | | | | | LAB | | + +-------+ + + + | Alkaline | 59 | 46 - 116 U/L | EXTERNAL | | | Phosphatase | | | LAB | | + +-------+ + + + | ALT, | 23 | 16 - 63 U/L | EXTERNAL | | | External | | | LAB | | + +-------+ + + + | AST, | 21 | <=38 U/L | EXTERNAL | | [...] | | | + +---------+ + + Creatinine (07/20/2017 1:07 PM PDT) + +-------+ + + + | Component | Value | Ref Range | Performed | Pathologist | | | | | At | Signature | + +-------+ + + + | Creatinine | 0.89 | 0.70 - 1.40 | EXTERNAL | [...] | | | + +---------+ + + BUN (07/20/2017 1:07 PM PDT) + +-------+ + + + | Component | Value | Ref Range | Performed | Pathologist | | | | | At | Signature | + +-------+ + + + | BUN, Bld | 18 | 5 - 26 mg/dL | EXTERNAL [...]
--- OUTSIDE RECORDS SUMMARY | ~2019-09-01 | XMS | Encounter Summary ---
Demographics + + + | Address | [address] | | | [place] [address] | + + + | Home Phone | | + + + | Preferred Language | Unknown | + + + | Marital Status | | + + + | Gnosticist Affiliation | Unknown | + + + | Race | Unknown | + + + | Ethnic Group | Unknown | + + + Author + + + | Author | [facility] | | | and [place] | + + + | Organization | [facility] | [...] + +------+ + | Care Business Process Associate Name | Role | Phone | + +------+ + PCP | Unavailable | + +------+ + Encounter Details +--------+ + + + + | Date | Type | Department | Care Team | Description | +--------+ + + + + | 04/28/ | Hospital | [facility] | [facility] | | | 2017 | Encounter | [facility] | DO [address] | | | | | [address] [place] | [place] | | | | | [place], [place] | [place], [place] | | | | | [address] | [address] | | | | | [phone] | [phone] | | | | | | | [...] + | CBC W/AUTO | Routin | 04/28/2017 | | Results for this | | DIFFERENTIAL | e | 3:39 PM | | procedure are in the | | | | PDT | | results section. | + +--------+ + + + | COMPREHENSIVE | Routin | 04/28/2017 | | Results for this | | METABOLIC PANEL | e | 3:39 PM | | procedure are in the | | | | PDT | | results section. | + +--------+ + + + | HELICOBACTER PYLORI | Routin | 04/28/2017 | | Results for this | | BIOPSY | e | 3:18 PM | | procedure are in the | | | | PDT | | results section. | + +--------+ + + + | CT ABDOMEN PELVIS W | Routin | 04/28/2017 | | Results for this | | CONTRAST | e | 12:29 PM | | procedure are in the | | | | PDT | | results section. | + +--------+ + + + documented in this encounter Results Comprehensive Metabolic Panel (04/28/2017 3:39 PM PDT) + +-------+ + + + | Component | Value | Ref Range | Performed | Pathologist | | | | | At | Signature | + +-------+ + + + | Sodium | 142 | 132 - 143 | EXTERNAL | [...] + + + | Anion Gap | 7 | 7 - 16 | EXTERNAL | | | | | | LAB | | + +-------+ + + + | Calcium | 9 | 8.3 - 10.0 | EXTERNAL | | | | | mg/dL | LAB | | + +-------+ + + + | Glucose | 97 | 70 - 110 mg/dL | EXTERNAL | | | | | | LAB | | + +-------+ + + + | BUN, Bld | 16 | 5 - 26 mg/dL | EXTERNAL | | | | | | LAB | | + +-------+ + + + | Creatinine | 0.82 | 0.70 - 1.40 | EXTERNAL | | | | | mg/dL | LAB | | + +-------+ + + + | BUN/Creatin | 19.5 | 7.0 - 24.0 | EXTERNAL | [...] +-------+ + + + | Albumin | 3.9 | 3.0 - 4.5 g/dL | EXTERNAL | | | | | | LAB | | + +-------+ + + + | Alkaline | 65 | 46 - 116 U/L | EXTERNAL | | | Phosphatase | | | LAB | | + +-------+ + + + | ALT, | 21 | 16 - 63 U/L | EXTERNAL | | | External | | | LAB | | + +-------+ + + + | AST, | 6 | <=38 U/L | EXTERNAL | | [...] +---------+ + + CBC w/ Auto Differential (04/28/2017 3:39 PM PDT) + +-------+ + + + | Component | Value | Ref Range | Performed | Pathologist | | | | | At | Signature | + +-------+ + + + | WBC | 6.1 | 4.6 - 10.5 | EXTERNAL | | | | | 1000/mm3 | LAB | | + +-------+ + + + | RBC | 3.86 | 4.36 - 5.83 | EXTERNAL | | | | | mil/mm3 | LAB | | + +-------+ + + + | HGB, | 13.7 | 13.1 - 17.4 | EXTERNAL | | | External | | g/dL | LAB | | + +-------+ + + + | HCT, | 39.8 | 39.0 - 51.9 % | EXTERNAL | | | External | | | LAB | | + +-------+ + + + | MCV | 103 | 82 - 96 fl | EXTERNAL | | | | | | LAB | | + +-------+ + + + | MCH | 35.5 | 27.7 - 32.3 pg | EXTERNAL | | | | | | LAB | | + +-------+ + + + | MCHC | 34.4 | 32.0 - 36.9 | EXTERNAL | | | | | g/dL | LAB | | + +-------+ + + + | RDW-CV | 12.6 | <=17.0 % | EXTERNAL | | | | | | LAB | | + +-------+ + + + | RDW-SD | 47.9 | 34.0 - 57.0 fL | EXTERNAL | | | | | | LAB | | + +-------+ + + + | Platelet | 163 | 150 - 450 | EXTERNAL | | | Count | | 1000/mm3 | LAB | | | Plasma | | | | | + +-------+ + + + | MPV | 10.2 | 9.4 - 12.4 FL | EXTERNAL | | | | | | LAB | | + +-------+ + + + | % Segmented | 65.8 | 42.0 - 76.0 % | EXTERNAL | | | | | | LAB | | | Neutrophils | | | | | + +-------+ + + + | % | 24.9 | 20.0 - 40.0 % | EXTERNAL | | | Lymphocytes | | | LAB | | + +-------+ + + + | % Monocytes | 7.2 | 3.0 - 13.0 % | EXTERNAL | | | | | | LAB | | + +-------+ + + + | % | 1.5 | 0.0 - 7.0 % | EXTERNAL | | | Eosinophils | | | LAB | | + +-------+ + + + | % Basophils | 0.3 | 0.0 - 2.0 % | EXTERNAL | | | | | | LAB | | + +-------+ + + + | % Immature | 0.3 | 0.0 - 0.5 % | EXTERNAL | | | Granulocyte | | | LAB | | | s | | | | | + +-------+ + + + | % nRBC | 0 | 0.0 - 0.2 /100 | EXTERNAL | | | | | WBC | LAB | | + +-------+ + + + | Absolute | 3.99 | 2.80 - 7.70 | EXTERNAL | | | Neutrophils | | 1000/mm3 | LAB | | + +-------+ + + + | Absolute | 1.51 | 1.20 - 3.30 | EXTERNAL | | | Lymphocytes | | 1000/mm3 | LAB | | + +-------+ + + + | Absolute | 0.44 | 0.00 - 0.80 | EXTERNAL | | | Monocytes | | 1000/mm3 | LAB | | + +-------+ + + + | Absolute | 0.09 | 0.00 - 0.70 | EXTERNAL | [...] | | | + +---------+ + + Helicobactor pylori Biopsy (04/28/2017 3:18 PM PDT) + + + + + + | Component | Value | Ref Range | Performed | Pathologist | | | | | At | Signature | + + + + + + | CLOTEST | NEGATIVE | NEGATIVE | EXTERNAL | | | | | | LAB | | + + + + + + | Internal QC | POSITIVE | POSITIVE | EXTERNAL | | | | | | LAB | | + + + + + + + + | Specimen | + + | | + + + +---------+ + + | Performing | Address | City/State/Zipcode | Phone Number | | Organization | | | | + +---------+ + + | EXTERNAL LAB | | | | + +---------+ + + CT Abdomen Pelvis w Contrast (04/28/2017 12:29 PM PDT) + + | Specimen | + + | | + + + + + | Narrative | Performed At | + + + | EXAMINATION: CT CHEST/ABD/PELVIS W/CONT HISTORY: unintentional | | | wt. loss COMPARISON STUDY: February 26, 2010 TECHNIQUE: 5 mm | | | axial slices were acquired through the chest, abdomen and pelvis with | | | contrast. There was no post contrast reaction. DOSE REPORT: | | | CTDIvol: 10.7 - 12.4 mGy. DLP: 1239 mGy-cm. Automated exposure | | | control was utilized. FINDINGS: The thyroid gland is enlarged | | | and contains multiple nodules. There is mild enlargement of the main | | | pulmonary artery measuring 3.1 cm. Ascending aorta measures 3.9 cm. | | | Circumflex and left anterior descending coronary artery | | | calcifications. Prominent calcified and noncalcified plaque is noted | | | within the descending thoracic aorta. Fusiform dilation of the | | | distal thoracic aorta measures 4.2 x 4.6 cm. No mediastinal or hilar | | | lymphadenopathy. The lungs have severe emphysematous change. | | | Within the inferior right upper lobe on image number 123 of series | | | 3 is a 9 mm spiculated nodule abutting the fissure. Within the left | | | lower lobe on image number 158 of series 4 are 2 5 mm nodules. | | | Heart size is normal. No pericardial or pleural effusion. The | | | liver is normal. Gallbladder has mild wall thickening but is | | | decompressed No biliary ductal dilatation. The pancreas is | | | unremarkable. The spleen is unremarkable. Adrenal glands | | | re-demonstrates small left mass. The mass is hypodense and | | | unchanged in size suggesting an adenoma. The right kidney has benign | | | lobulations The left kidney has benign lobulations Bladder is | | | decompressed Other pelvic viscera are normal. No free fluid or | | | free air. Evaluation of the colon demonstrates large quantity of | | | fluid within the distal colon and rectum. Fluid is scattered | | | throughout the colon. Some fluid distension of small bowel is also | | | noted. The stomach is distended with fluid. There is bowel within | | | ventral hernia without evidence of obstruction or strangulation. 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 Aortobifemoral bypass graft is noted | | | distally. Prominent aortic atherosclerosis. Atherosclerosis of | | | branch vessels is also noted. Evaluation of the mesentery and | | | retroperitoneum demonstrates no pathologically enlarged adenopathy. | | | Osseous structures bone mineral density is decreased. There is | | | multilevel degenerative change of the spine. IMPRESSION: 1. | | | Bilateral lung nodules. Given the underlying emphysematous change, | | | three-month follow-up CT evaluation is recommended to ensure | | | stability. 2. Coronary artery disease. 3. Thoracic aortic aneurysm. | | | 4. Abdominal aortic aneurysm. 5. Extensive atherosclerosis of the | | | aorta. 6. Pulmonary hypertension. 7. For ventral hernia containing | | | bowel. 8. Fluid throughout the colon, query diarrhea. 9. Enlarged | | | nodular thyroid gland. Ultrasound evaluation is recommended. 10. | | | Decreased bone mineral density. Dexa scan evaluation is | | | recommended. JOB #: [id number] Digitally Released by: Vitaly | | | Juan Miguel Read By: JUAN MIGUEL HAMM MD Date: 04/29/2017 09:41 | | | | | + + + + + | Procedure Note | + + | Ishaan, Rad Results In - 11/02/2017 1:03 PM PST EXAMINATION: | | CT CHEST/ABD/PELVIS W/CONT | | | | HISTORY: | | unintentional wt. loss | | | | COMPARISON STUDY: | | February 26, 2010 | | | | TECHNIQUE: | | 5 mm axial slices were acquired through the chest, abdomen and pelvis with | | contrast. There was no post contrast reaction. | | | | DOSE REPORT: | | CTDIvol: 10.7 - 12.4 mGy. DLP: 1239 mGy-cm. Automated exposure control was | | utilized. | | | | FINDINGS: | | The thyroid gland is enlarged and contains multiple nodules. | | There is mild enlargement of the main pulmonary artery measuring 3.1 cm. | | Ascending aorta measures 3.9 cm. | | Circumflex and left anterior descending coronary artery calcifications. | | Prominent calcified and noncalcified plaque is noted within the descending | | thoracic aorta. Fusiform dilation of the distal thoracic aorta measures 4.2 x | | 4.6 cm. | | No mediastinal or hilar lymphadenopathy. | | The lungs have severe emphysematous change. Within the inferior right upper | | lobe on image number 123 of series 3 is a 9 mm spiculated nodule abutting the | | fissure. Within the left lower lobe on image number 158 of series 4 are 2 5 | | mm nodules. | | Heart size is normal. | | No pericardial or pleural effusion. | | | | | | The liver is normal. | | Gallbladder has mild wall thickening but is decompressed | | No biliary ductal dilatation. | | The pancreas is unremarkable. | | The spleen is unremarkable. | | | | Adrenal glands re-demonstrates small left mass. The mass is hypodense and | | unchanged in size suggesting an adenoma. | | The right kidney has benign lobulations | | The left kidney has benign lobulations | | Bladder is decompressed | | Other pelvic viscera are normal. | | | | No free fluid or free air. | | Evaluation of the colon demonstrates large quantity of fluid within the distal | | colon and rectum. Fluid is scattered throughout the colon. Some fluid | | distension of small bowel is also noted. The stomach is distended with fluid. | | There is bowel within ventral hernia without evidence of obstruction or | | strangulation. | | | | Aorta has aneurysmal dilatation at the level of the renal arteries measuring | | 4.3 x 3.7 cm. Aortobifemoral bypass graft is noted distally. | | Prominent aortic atherosclerosis. Atherosclerosis of branch vessels is also | | noted. | | Evaluation of the mesentery and retroperitoneum demonstrates no pathologically | | enlarged adenopathy. | | | | Osseous structures bone mineral density is decreased. There is multilevel | | degenerative change of the spine. | | | | IMPRESSION: | | 1. Bilateral lung nodules. Given the underlying emphysematous change, | | three-month follow-up CT evaluation is recommended to ensure stability. | | 2. Coronary artery disease. | | 3. Thoracic aortic aneurysm. | | 4. Abdominal aortic aneurysm. | | 5. Extensive atherosclerosis of the aorta. | | 6. Pulmonary hypertension. | | 7. For ventral hernia containing bowel. | | 8. Fluid throughout the colon, query diarrhea. | | 9. Enlarged nodular thyroid gland. Ultrasound evaluation is recommended. | | 10. Decreased bone mineral density. Dexa scan evaluation is recommended. | | | | | | JOB #: [id number] | | Digitally Released by: Juan Miguel Hamm | | | | | | Read By: JUAN MIGUEL HAMM MD | | Date: 04/29/2017 09:41 | | | + + documented in this encounter Visit Diagnoses Not on filedocumented in this encounter"
--- OUTSIDE RECORDS SUMMARY | ~2019-09-01 | XMS | Encounter Summary ---
Demographics + + + | Address | [address] | | | [place] [address] | + + + | Home Phone [...] [facility] | | | and [place] | + + + | Organization | [facility] | | [...] Team Providers + +------+ + | Care Contractor Field Hauling Name | Role | Phone | + +------+ + PCP | Unavailable | + +------+ + Encounter Details +--------+ + + + + | Date | Type | Department | Care Team | Description | +--------+ + + + + | 04/17/ | [facility] | [place] | Faith Rodríguez | | | 2017 | Encounter | [facility] | D, BRAND SALES CONSULTANT ONE | | | | | PRIMARY CARE [address] | [facility] | | | | | J[facility], | [place] [address] | | | | | [place] [address] | [phone] | | | | | [phone] | | | +--------+ + + + [...] | + +--------+ + + + | VITAMIN B12+FOLATE | Routin | 04/17/2017 | | Results for this | | | e | 1:53 PM | | procedure are in the | | | | PDT | | results section. | + +--------+ + + + documented in this encounter Results Vitamin B-12 and Folate (04/17/2017 1:53 PM PDT) + +-------+ + + + | Component | Value | Ref Range | Performed | Pathologist | | | | | At | Signature | + +-------+ + + + | VITAMIN | 333 | 211 - 911 pg/mL | EXTERNAL | | | B-12 | | | LAB | | + +-------+ + + + | FOLATE | 5.9 | >=5.4 ng/mL | EXTERNAL | | | | [...]
--- OUTSIDE RECORDS SUMMARY | ~2019-09-01 | XMS | Encounter Summary ---
Demographics + + + | Address | [address] | | | [place] [address] | + + + | Home Phone [...] | Author | [facility] | | | and [place] | + + + | Organization | [facility] | | [...] Team Providers + +------+ + | Care Commanding Officer Homicide Squad Name | Role | Phone | + [...] Medication Refill | | 2018 | | [facility] | D, ANGULAR JS DEVELOPER ONE | | | | | PRIMARY CARE [address] | [facility] | | | | | JET [facility], | [place] [address] | | | | | [place] [address] | [phone] | | | | | [phone] | | | +--------+--------+ + + + [...]
--- OUTSIDE RECORDS SUMMARY | ~2019-09-01 | XMS | Encounter Summary ---
Demographics + + + | Address | [address] | | | [place] [address] | + + + | Home Phone [...] [facility] | | | and [place] | + + + | Organization | [facility] | | | and [...] Team Providers + +------+ + | Care Instrument Setter Name | Role | Phone | + +------+ + | Aric Palmer | PCP | | | LETTY | | | + +------+ + Encounter Details +--------+ + + + + | Date | Type | Department | Care Team | Description | +--------+ + + + + | 05/08/ | Documentati | [place] | Aric Palmer | | | 2019 | on | [facility] | [place]TY [address] | | | | | PRIMARY CARE [address] | [place] [facility], | | | | | [place] [facility], | [place] [address] | | | | | [place] [address] | [phone] | | | | | [phone] | | | +--------+ + + + [...] documented as of this encounter Progress Notes Joselyn Castaneda - 05/08/2019 4:44 PM PDTAt his appointment Saturnino picked up his RX for (#1) NORCO 5-325mg 120 count,(#2) NORCO 5-325mg 120 count, and (#3) NORCO 5-325 mg 120 count. The RX's for fish oil 1,000 mg capsule 180 count, PRINIVIL,ZESTRIL 40 mg 45 count, and DESY REL 100 mg 90 count were faxed to Nyla Redmond VAElectronically signed by Joselyn Castaneda at 4:57 PM PDTdocumented in this encounter Plan of Treatment Not on filedocumented as of this encounter Visit Diagnoses Not on filedocumented in this encounter"
--- OUTSIDE RECORDS SUMMARY | ~2019-09-01 | XMS | Encounter Summary ---
Demographics + + + | Address | [address] | | | [place] [address] | + + + | Home Phone [...] Author | [facility] | | | and [place] | + + + | Organization | [facility] | [...] Team Providers + +------+ + | Care Lanolin Plant Operator Name | Role | Phone | + +------+ + PCP | Unavailable | + +------+ + Encounter Details +--------+ + + + + | Date | Type | Department | Care Team | Description | +--------+ + + + + | 04/13/ | [facility] | [place] | Faith Rodríguez | | | 2017 | Encounter | [facility] | D, PERSONAL INJURY SPECIALIST ONE | | | | | PRIMARY CARE [address] | [facility] | | | | | [facility], | [place] [address] | | | | | [place] [address] | [phone] | | | | | [phone] | | | +--------+ + + + [...]
--- OUTSIDE RECORDS SUMMARY | ~2019-09-01 | XMS | Encounter Summary ---
Demographics + + + | Address | [address] | | | [place] [address] | + + + | Home Phone | | + + + | Preferred Language | Unknown | + + + | Marital Status | | + + + | Latter-Day Affiliation | Unknown | + + + | Race | Unknown | + + + | Ethnic Group | Unknown | + + + Author + + + | Author | [facility] | | | and [place] | + + + | Organization | [facility] [...] Team Providers + +------+ + | Care Transformer Repairer Name | Role | Phone | [...] | PRIMARY CARE [address] | [place], | | | | | [place], | [place] [address] | | | | | [place] [address] | [phone] | | | | | [phone] | | | +--------+ + + + [...]
--- OUTSIDE RECORDS SUMMARY | ~2019-09-01 | XMS | Encounter Summary ---
Demographics + + + | Address | [address] | | | [place] [address] | + + + | Home Phone [...] | [facility] | | | and [place] | + + + | Organization | [facility] | | | and [place] [...] Team Providers + +------+ + | Care Director Of Food And Beverage Services Name | Role | Phone | + [...] | MED CTR EXTERNAL | MD [address] | | | | | IMAGING | [place] | | | | | [phone] | [place] [address] | | +--------+ + + + + [...] for comparison only - no result from [facility]. | [facility] | + + + + +---------+ + + | Performing | Address | City/State/Zipcode | Phone Number | | Organization | | | | + +---------+ + + | [facility] | | | | + +---------+ + + documented in this encounter Visit Diagnoses Not on filedocumented in this encounter"
--- OUTSIDE RECORDS SUMMARY | ~2019-09-01 | XMS | Encounter Summary ---
Demographics + + + | Address | [address] | | | [place] [address] | + + + | Home Phone [...] | Author | [facility] | | | and [place] | + + + | Organization | [facility] | | [...] Team Providers + +------+ + | Care Detective Homicide Squad Name | Role | Phone [...] | Results | | 2018 | | [facility] | D, INDUSTRIAL REFRIGERATION MECHANIC ONE | | | | | PRIMARY CARE [address] | [facility] | | | | | JET [facility], | [place], [place] [address] | | | | | [place] [address] | [phone] | | | | | [phone] | | | +--------+ + + + [...]
--- OUTSIDE RECORDS SUMMARY | ~2019-09-01 | XMS | Encounter Summary ---
Demographics + + + | Address | [address] | | | [place] [address] | + + + | Home Phone [...] Author | [facility] | | | and [place] | + + + | Organization | [facility] | | | and [...] Team Providers + +------+ + | Care Survey Chief Name | Role | Phone | [...] | | [place] | [place] [address] | | | | | [address] | [phone] | | | | | [phone] | | | +--------+ + + + [...]
--- OUTSIDE RECORDS SUMMARY | ~2019-09-01 | XMS | Encounter Summary ---
Demographics + + + | Address | [address] | | | [place] [address] | + + + | Home Phone | | + + + | Preferred Language | Unknown | + + + | Marital Status | | + + + | Islam Affiliation | Unknown | + + + | Race | Unknown | + + + | Ethnic Group | Unknown | + + + Author + + + | Author | [facility] | | | and [place] | + + + | Organization | [facility] | [...] Team Providers + +------+ + | Care Inbound Telemarketer Name | Role | Phone | + [...] | PRIMARY CARE [address] | [facility], | | | | | [place] [facility], | [place] [address] | | | | | [place] [address] | [phone] | | | | | [phone] | | | +--------+--------+ + + + [...]
--- OUTSIDE RECORDS SUMMARY | ~2019-09-01 | XMS | Encounter Summary ---
Demographics + + + | Address | [address] | | | [place] [address] | + + + | Home Phone [...] Author | [facility] | | | and [place] | + + + | Organization | [facility] | | [...] Team Providers + +------+ + | Care Bond Manager Name | Role | Phone | + +------+ + | Faith Rodríguez FLATWARE MAKER | PCP | | + +------+ + Encounter Details +--------+ + + + + | Date | Type | Department | Care Team | Description | +--------+ + + + + | 11/21/ | Orders Only | [place] | Faith Rodríguez | Pre-procedure lab | | 2018 | | [facility] | D, FLATWARE MAKER ONE | exam (Primary Dx) | | | | PRIMARY CARE [address] | [facility] | | | | | [facility], | [place] [address] | | | | | [place] [address] | [phone] | | | | | [phone] | | | +--------+ + + + [...] on filedocumented as of this encounter Results Basic Metabolic Panel (11/27/2017 12:10 PM PST) + +---------+ + + + | Component | Value | Ref Range | Performed | Pathologist | | | | | At | Signature | + +---------+ + + + | Na | 145 (H) | 132 - 143 | [place] | | | | | mmol/L | [facility] | | | | | | [facility] | | + +---------+ + + + | K | 4.1 | 3.3 - 4.9 | [place] | | | | | mmol/L | [facility] | | | | | | [facility]ATORY | | + +---------+ + + + | Cl | 108 | 95 - 108 mmol/L | [place] | | | | | | [facility] | | | | | | [facility] | | + +---------+ + + + | CO2 | 30 | 23 - 34 mmol/L | [place] | | | | | | [facility] | | | | | | [facility] | | + +---------+ + + + | Anion Gap | 7 | 7 - 16 mmol/L | [place] | | | | | | [facility] | | | | | | [facility] | | + +---------+ + + + | Glucose | 96 | 70 - 110 mg/dL | [place] | | | | | | [facility] | | | | | | [facility] | | + +---------+ + + + | BUN | 17 | 5 - 26 mg/dL | [place] | | | | | | [facility] | | | | | | [facility] | | + +---------+ + + + | Creatinine | 0.81 | 0.70 - 1.40 | [place] | | | | | mg/dL | [facility] | | | | | | [facility]ATORY | | + +---------+ + + + | eGFR if not | >60 | >=60 | [place] | | | | | mL/min/1.73m2 | [facility] | [facility] | | | | | | [facility] | | + +---------+ + + + | Calcium | 8.7 | 8.3 - 10.0 | [place] | | | | | mg/dL | [facility] | | | | | | [facility]ORY | | + +---------+ + + + | BUN/Creatin | 21.0 | 7.0 - 24.0 | [place] | | | ine Ratio | | | [facility] | | | | | | [facility]ATORY | | + +---------+ + + + + + | Specimen | + + | Blood | + + + + + + + | Performing | Address | City/State/Zipcode | Phone Number | | Organization | | | | + + + + + | [place] [facility] | [address] | [place] [address] | [phone] | | HOSPITAL [facility] | | | | + + + + + documented in this encounter Visit Diagnoses + + | Diagnosis | + + | Pre-procedure lab exam - Primary Pre-procedural laboratory examination | + + documented in this encounter"
--- OUTSIDE RECORDS SUMMARY | ~2019-09-01 | XMS | Encounter Summary ---
Demographics + + + | Address | [address] | | | [place] [address] | + + + | Home Phone [...] | Author | [facility] | | | and [place] | + + + | Organization | [facility] | | | and [...] Team Providers + +------+ + | Care Traffic Counter Name | Role | Phone | + +------+ + PCP | Unavailable | + +------+ + Encounter Details +--------+ + + + + | Date | Type | Department | Care Team | Description | +--------+ + + + + | 05/01/ | [facility] | [place] | Carlos Callejas | | | 2016 | Encounter | HOSPITAL EMERGENCY | MD [address] | | | | | [place] [address] | [facility] | | | | | [address] [place] | [employer] [address] | | | | | [address] | [phone] | | | | | [phone] | | | +--------+ + + + [...] finding. 2. Severe emphysematous change. JOB #: [id number] | | | Digitally Released by: Faye [...] | | | | | JOB #: [id number] | | Digitally Released by: Faye Quintero [...] No abnormal intracranial enhancement is seen. No [place] | | | aneurysm is [...] | | with microvascular disease. JOB #: [id number] Digitally Released | | | by: Faye [...] No abnormal intracranial enhancement is seen. No [place] aneurysm is | | demonstrated. [...] | | | | | JOB #: [id number] | | Digitally Released by: Faye Quintero | | | | | | Read By: FAYE QUINTERO MD | | Date: 05/01/2017 14:27 | | | + + documented in this encounter Visit Diagnoses Not on filedocumented in this encounter"
--- OUTSIDE RECORDS SUMMARY | ~2019-09-01 | XMS | Encounter Summary ---
Demographics + + + | Address | [address] | | | [place] [address] | + + + | Home Phone | | + + + | Preferred Language | Unknown | + + + | Marital Status | | + + + | Spiritism Affiliation | Unknown | + + + | Race | Unknown | + + + | Ethnic Group | Unknown | + + + Author + + + | Author | [facility] | | | and [place] | + + + | Organization | [facility] | | | [...] Team Providers + +------+ + | Care Bread Distributor Name | Role | Phone | + +------+ + | Faith Rodríguez SENIOR SYSTEMS PROGRAMMER | PCP | | + +------+ + Encounter Details +--------+ + + + + | Date | Type | Department | Care Team | Description | +--------+ + + + + | 03/14/ | Abstract | [place] | Faith Rodríguez | Dermatitis; | | 2017 | | [facility] | D, SENIOR SYSTEMS PROGRAMMER ONE | Insomnia, | | | | PRIMARY CARE [address] | [facility] | unspecified type; | | | | JET [facility], | [place] [address] | Ventral hernia | | | | [place] [address] | [phone] | without obstruction | | | | [phone] | | or gangrene; | | | | | | Dysphagia, | | | | | | unspecified type; | | | | | | Hyperplasia of | | | | | | prostate | +--------+ + + + + Social [...] + | EXTERNAL LAB: | Routin | 02/07/2017 | | Results for this | | GLUCOSE | e | | | procedure are in the | | | | | | results section. | + +--------+ + + + | EXTERNAL LAB: ALT | Routin | 02/07/2017 | | Results for this | | | e | | | procedure are in the | | | | | | results section. | + +--------+ + + + | EXTERNAL LAB: AST | Routin | 02/07/2017 | | Results for this | | | e | | | procedure are in the | | | | | | results section. | + +--------+ + + + | EXTERNAL LAB: | Routin | 02/07/2017 | | Results for this | | BILIRUBIN, TOTAL | e | | | procedure are in the | | | | | | results section. | + +--------+ + + + | EXTERNAL LAB: CARBON | Routin | 02/07/2017 | | Results for this | | DIOXIDE | e | | | procedure are in the | | | | | | results section. | + +--------+ + + + | EXTERNAL LAB: | Routin | 02/07/2017 | | Results for this | | POTASSIUM | e | | | procedure are in the | | | | | | results section. | + +--------+ + + + | EXTERNAL LAB: SODIUM | Routin | 02/07/2017 | | Results for this | | | e | | | procedure are in the | | | | | | results section. | + +--------+ + + + | EXTERNAL LAB: CBC | Routin | 02/07/2017 | | Results for this | | | e | | | procedure are in the | | | | | | results section. | + +--------+ + + + | EXTERNAL LAB: | Routin | 02/07/2017 | | Results for this | | CREATININE | e | | | procedure are in the | | | | | | results section. | + +--------+ + + + | EXTERNAL LAB: | Routin | 09/05/2016 | | Results for this | | TRIGLYCERIDES | e | | | procedure are in the | | | | | | results section. | + +--------+ + + + | EXTERNAL LAB: | Routin | 09/05/2016 | | Results for this | | CHOLESTEROL, HDL | e | | | procedure are in the | | | | | | results section. | + +--------+ + + + | EXTERNAL LAB: | Routin | 09/05/2016 | | Results for this | | CHOLESTEROL, TOTAL | e | | | procedure are in the | | | | | | results section. | + +--------+ + + + | EXTERNAL LAB: | Routin | 09/05/2016 | | Results for this | | CHOLESTEROL, LDL | e | | | procedure are in the | | | | | | results section. | + +--------+ + + + documented in this encounter Results External Lab: Glucose (02/07/2017) + +-------+ + + + | Component | Value | Ref Range | Performed | Pathologist | | | | | At | Signature | + +-------+ + + + | Glucose, | 105 | | | | | External | | | | | + +-------+ + + + External Lab: ALT (02/07/2017) + +-------+ + + + | Component | Value | Ref Range | Performed | Pathologist | | | | | At | Signature | + +-------+ + + + | ALT, | 10 | | | | | External | | | | | + +-------+ + + + External Lab: AST (02/07/2017) + +-------+ + + + | Component | Value | Ref Range | Performed | Pathologist | | | | | At | Signature | + +-------+ + + + | AST, | 19 | | | | | External | | | | | + +-------+ + + + External Lab: Bilirubin, Total (02/07/2017) + +-------+ + + + | Component | Value | Ref Range | Performed | Pathologist | | | | | At | Signature | + +-------+ + + + | Bilirubin, | 0.4 | | | | | Total, | | | | | | External | | | | | + +-------+ + + + External Lab: Carbon Dioxide (02/07/2017) + +-------+ + + + | Component | Value | Ref Range | Performed | Pathologist | | | | | At | Signature | + +-------+ + + + | Carbon | 27 | | | | | Dioxide, | | | | | | External | | | | | + +-------+ + + + External Lab: Potassium (02/07/2017) + +-------+ + + + | Component | Value | Ref Range | Performed | Pathologist | | | | | At | Signature | + +-------+ + + + | Potassium, | 3.6 | | | | | External | | | | | + +-------+ + + + External Lab: Sodium (02/07/2017) + +-------+ + + + | Component | Value | Ref Range | Performed | Pathologist | | | | | At | Signature | + +-------+ + + + | Sodium, | 140 | | | | | External | | | | | + +-------+ + + + External Lab: CBC (02/07/2017) + +-------+ + + + | Component | Value | Ref Range | Performed | Pathologist | | | | | At | Signature | + +-------+ + + + | WBC, | 4.9 | | | | | External | | | | | + +-------+ + + + | HGB, | 14.3 | | | | | External | | | | | + +-------+ + + + | HCT, | 42.5 | | | | | External | | | | | + +-------+ + + + | PLT, | 144 | | | | | External | | | | | + +-------+ + + + External Lab: Creatinine (02/07/2017) + +-------+ + + + | Component | Value | Ref Range | Performed | Pathologist | | | | | At | Signature | + +-------+ + + + | Creatinine, | 0.8 | | | | | External | | | | | + +-------+ + + + + + | Specimen | + + | Blood | + + External Lab: Triglycerides (09/05/2016) + +-------+ + + + | Component | Value | Ref Range | Performed | Pathologist | | | | | At | Signature | + +-------+ + + + | Triglycerid | 88 | | | | | es, | | | | | | External | | | | | + +-------+ + + + + + | Specimen | + + | Blood | + + External Lab: Cholesterol, HDL (09/05/2016) + +-------+ + + + | Component | Value | Ref Range | Performed | Pathologist | | | | | At | Signature | + +-------+ + + + | HDL | 28 | mg/dl | | | | Cholesterol | | | | | | , External | | | | | + +-------+ + + + + + | Specimen | + + | Blood | + + External Lab: Cholesterol, Total (09/05/2016) + +-------+ + + + | Component | Value | Ref Range | Performed | Pathologist | | | | | At | Signature | + +-------+ + + + | Cholesterol | 89 | mg/dl | | | | , Total, | | | | | | External | | | | | + +-------+ + + + + + | Specimen | + + | Blood | + + External Lab: Cholesterol, LDL (09/05/2016) + +-------+ + + + | Component | Value | Ref Range | Performed | Pathologist | | | | | At | Signature | + +-------+ + + + | LDL | 43 | | | | | Cholesterol | | | | | | , Direct, | | | | | | External | | | | | + +-------+ + + + + + | Specimen | + + | Blood | + + documented in this encounter Visit Diagnoses + + | Diagnosis | + + | Dermatitis Contact dermatitis and other eczema, due to unspecified cause | + + | Insomnia, unspecified type | + + | Ventral hernia without obstruction or gangrene Ventral hernia, unspecified, without | | mention of obstruction or gangrene | + + | Dysphagia, unspecified type | + + | Hyperplasia of prostate Unspecified hyperplasia of prostate without urinary | | obstruction and other lower urinary tract symptoms (LUTS) | + + documented in this encounter"
--- OUTSIDE RECORDS SUMMARY | ~2019-09-01 | XMS | Encounter Summary ---
Demographics + + + | Address | [address] | | | [place] [address] | + + + | Home Phone [...] Author | [facility] | | | and [place] | + + + | Organization | [facility] | | | and [place] [...] Team Providers + +------+ + | Care Break Out Worker Name | Role | Phone | + +------+ + | Faith Rodríguez WEB CONTENT PRODUCER | PCP | | + +------+ + [...] artery | MD Brendan | [address] | | | | | disease, | [address] | [place], | | | | | angina | [place] | [place] | | | | | presence | [place], [place] | [address] | | | | | unspecified, | [address] | Phone: | | | | | unspecified | Phone: | [phone] | | | | | vessel or | [phone] | Fax: | | | | | lesion type, | Fax: | [phone] | | | | | unspecified | [phone] | | | | | | whether | | | | | | | minto or | | | | | | [...] | | | | | | STUDIES [place] | | | | | | | CV STRS TST | | | | | | | XERS&/OR RX | | | | | | | CONT ECG W/O | | | | | | | I&R OK | | | | | | | [...] + + | 01/02/ | Hospital | [facility] | Deangelo Little | | | 2018 | Encounter | MED CTR NUCLEAR | MD Brendan [address] | | | | MEDICINE [address] [place] | | | | | [place], | [place] [address] | | | | | [place] [address] | [phone] | | | | | [phone] | | | +--------+ + + + [...] | | | | | | type (HCC) | | | | | | + [...] whether | | | | | | minto or | | | | | | [...] Visit Diagnoses Not on filedocumented in this encounter Administered Medications + +--------+ + +------+------+ | Medication Order | MAR | Action | Dose | Rate | Site | | | Action | Date | | | | + +--------+ + +------+------+ | technetium TC-[id number] sestamibi | Given | 01/03/20 | 30 | | | | (CARDIOLITE) injection 30 | | 18 1:26 | millicur | | | | millicurie 30 millicurie, | | PM PDT | ies | | | | Intravenous, ONCE PRN, Other, | | | | | | | Starting 01/02/18 at 1326, For | | | | | | | 1 dose, Nuclear Medicine | | | | | | + +--------+ + +------+------+ +---+---+ | | | +---+---+ documented in this encounter"
--- OUTSIDE RECORDS SUMMARY | ~2019-09-01 | XMS | Encounter Summary ---
Demographics + + + | Address | [address] | | | [place] [address] | + + + | Home Phone | | + + + | Preferred Language | Unknown | + + + | Marital Status | | + + + | Jain Affiliation | Unknown | + + + | Race | Unknown | + + + | Ethnic Group | Unknown | + + + Author + + + | Author | [facility] | | | and [place] | + + + | Organization | [facility] [...] Team Providers + +------+ + | Care Parks And Recreation Worker Name | Role | Phone | + +------+ + PCP | Unavailable | + +------+ + Encounter Details +--------+ + + + + | Date | Type | Department | Care Team | Description | +--------+ + + + + | 04/13/ | [facility] | [place]ATT | Faith Rodríguez | | | 2017 | Encounter | [facility] | D, RELATIONSHIP ASSOCIATE ONE | | | | | PRIMARY CARE [address] | [facility] | | | | | [facility], [place], | [place] [address] | | | | | [place] [address] | [phone] | | | | | [phone] | | | +--------+ + + + [...]
--- OUTSIDE RECORDS SUMMARY | ~2019-09-01 | XMS | Encounter Summary ---
Demographics + + + | Address | [address] | | | [place] [address] | + + + | Home Phone | | + + + | Preferred Language | Unknown | + + + | Marital Status | | + + + | Voodoo Affiliation | Unknown | + + + | Race | Unknown | + + + | Ethnic Group | Unknown | + + + Author + + + | Author | [facility] | | | and [place] | + + + | Organization | [facility] | | | and [place] [...] Providers + +------+ + | Care Chief Dispatcher Name | Role | Phone | + [...] | | [place] | [place] [address] | | | | | [address] | [phone] | | | | | [phone] | | | +--------+ + + + [...]
--- OUTSIDE RECORDS SUMMARY | ~2019-09-01 | XMS | Clinical Summary ---
Demographics + + + | Address | [address] | | | [place] [address] | + + + | Home Phone [...] + | Author | [facility] | | | and [place] | + + + | Organization | [facility] | | | and [place] [...] Team Providers + +------+ + | Care Munitions Handler Name | Role | Phone | + +------+ + | Aric Palmer | PCP | | | PA-C | | | + +------+ + Allergies + + + + + + | Active Allergy | Reactions | Severity | Noted | Comments | | | | | Date | | + + + + + + | Aspirin | Nausea Only, | High | 07/20/20 | | | | Swelling | | 17 | | + + + + + + | Bee Venom | Anaphylaxis | High | 07/20/20 | | | | | | 17 | | + + + + + + | Codeine | Nausea And Vomiting | Low | 07/20/20 | | | | | | 17 | | + + + + + + | Soap & Cleansers | Swelling | High | 12/13/19 | Rash/swelling | | | | | 19 | | + + + + + + | Uncoded | | | 03/22/20 | [place], patient | | Nonscreenable | | | 18 | states he gets red | | Allergen | | | | spots and they burn | | | | | | and get itchy. | + + + + + + Medications + + + +---------+------+------+-------+ | Medication | Sig | Dispensed | Refills | Star | End | Statu | | | | | | t | Date | s | | | | | | Date | | | + + + +---------+------+------+-------+ | fluocinonide | Apply topically | 90 | 3 | 10/1 | | Activ | | (LIDEX) 0.05% cream | Daily. | Applicati | | 8/20 | | e | | | | on | | 18 | | | + + + +---------+------+------+-------+ | clopidogrel | Take 1 tablet by | 90 | 3 | 10/1 | | Activ | | (PLAVIX) 75 mg | mouth Daily. | tablet | | 8/20 | | e | | tablet | | | | 18 | | | + + + +---------+------+------+-------+ | carvedilol (COREG) | Take 1 tablet by | 180 | 3 | 10/1 | | Activ | | 6.25 mg tablet | mouth 2 times daily | tablet | | 8/20 | | e | | | (with breakfast & | | | 18 | | | | | dinner). | | | | | | + + + +---------+------+------+-------+ | Calcium | Take 2 tablets by | 180 | 3 | 10/1 | | Activ | | Carb-Cholecalciferol | mouth Daily. | tablet | | 8/20 | | e | | (CALCIUM 500 +D) | | | | 18 | | | | 500-400 MG-UNIT TABS | | | | | | | + + + +---------+------+------+-------+ | B Complex Vitamins | Take 1 tablet by | 90 each | 3 | 10/1 | | Activ | | (VITAMIN B COMPLEX) | mouth Daily. | | | 8/20 | | e | | tablet | | | | 18 | | | + + + +---------+------+------+-------+ | Nutritional | Take 1 Can by mouth | 60 Can | 11 | 10/1 | | Activ | | Supplements (ENSURE | 2 times daily. | | | 8 | | e | | PLUS HN) | | | | 18 | | | | LIQDIndications: | | | | | | | | Weight loss | | | | | | | + + + +---------+------+------+-------+ | nystatin | Swish and swallow 5 | 473 mL | 0 | 10/1 | | Activ | | (MYCOSTATIN) 100,000 | ml four times daily | | | 820 | | e | | units/mL | up to 48 hours after | | | 18 | | | | suspensionIndication | symptoms resolve | | | | | | | s: Oropharyngeal | Indications: | | | | | | | Candidiasis | Candidiasis Fungal | | | | | | | | Infection of the | | | | | | | | Oropharynx | | | | | | + + + +---------+------+------+-------+ | simvastatin | Take 1 tablet by | 90 | 3 | 01/0 | | Activ | | (ZOCOR) 80 mg tablet | mouth nightly. | tablet | | 07/12 | | e | | | | | | 19 | | | + + + +---------+------+------+-------+ | prazosin | Take 1 capsule by | 60 | 11 | 01/0 | | Activ | | (MINIPRESS) 2 MG | mouth 2 times daily. | capsule | | 07/12 | | e | | capsuleIndications: | | | | 19 | | | | Essential | | | | | | | | hypertension | | | | | | | + + + +---------+------+------+-------+ | | Inhale 2 puffs into | 1 | 4 | 11/24 | | Activ | | tiotropium-olodatero | the lungs Daily. | Inhaler | | 11/11 | | e | | l (STIOLTO RESPIMAT) | | | | 19 | | | | 2.5-2.5 mcg/puff | | | | | | | | inhalerIndications: | | | | | | | | Chronic obstructive | | | | | | | | pulmonary disease, | | | | | | | | unspecified COPD | | | | | | | | type ([facility]) | | | | | | | + + + +---------+------+------+-------+ | nitroglycerin | Place 1 tablet under | 25 | 1 | 02/2 | | Activ | | (NITROSTAT) 0.4 mg | the tongue every 5 | tablet | | 11/11 | | e | | SL | minutes as needed | | | 19 | | | | tabletIndications: | for Chest pain. | | | | | | | Stable angina | | | | | | | | pectoris (HCC) | | | | | | | + + + +---------+------+------+-------+ | albuterol 90 | Inhale 2 puffs into | 3 | 3 | 02/2 | | Activ | | mcg/puff inhaler | the lungs every 6 | Inhaler | | 7/20 | | e | | | hours as needed for | | | 19 | | | | | Wheezing. | | | | | | + + + +---------+------+------+-------+ | gabapentin | Take 3 capsules by | 810 | 3 | 04/2 | | Activ | | (NEURONTIN) 300 mg | mouth 3 times daily. | capsule | | 4/20 | | e | | capsuleIndications: | Indications: | | | 19 | | | | Neuropathic Pain | Neuropathic Pain | | | | | | + + + +---------+------+------+-------+ | cyclobenzaprine | Take 1 tablet by | 270 | 3 | 04/2 | | Activ | | (FLEXERIL) 10 mg | mouth 3 times daily | tablet | | 4/20 | | e | | tablet | as needed for Muscle | | | 19 | | | | | spasms. | | | | | | + + + +---------+------+------+-------+ | traZODone | Take 1 tablet at | 90 | 3 | 07/1 | | Activ | | (DESYREL) 100 mg | night for insomnia | tablet | | 7/20 | | e | | tabletIndications: | Indications: Trouble | | | 19 | | | | Insomnia | Sleeping | | | | | | + + + +---------+------+------+-------+ | lisinopril | Take 0.5 tablets by | 45 | 1 | 07/1 | | Activ | | (PRINIVIL,ZESTRIL) | mouth Daily. | tablet | | 7/20 | | e | | 40 MG tablet | | | | 19 | | | + + + +---------+------+------+-------+ | | Take 2 tablets by | 120 | 0 | 08/2 | | Activ | | HYDROcodone-acetamin | mouth 2 times daily. | tablet | | 1/20 | | e | | ophen (NORCO) 5-325 | Indications: Pain | | | 19 | | | | mg per | | | | | | | | tabletIndications: | | | | | | | | Pain | | | | | | | + + + +---------+------+------+-------+ | EPINEPHrine | Inject 0.3 mLs into | 2 each | 1 | 08/2 | | Activ | | auto-injector | the muscle as needed | | | 1/20 | | e | | (EPIPEN 2-TERRI) 0.3 | for Anaphylaxis. | | | 19 | | | | mg/0.3 mL | Indications: | | | | | | | injectionIndications | Life-Threatening | | | | | | | : Anaphylaxis | Hypersensitivity | | | | | | | | Reaction | | | | | | + + + +---------+------+------+-------+ | capsaicin | Apply topically | 120 | 3 | 09/0 | | Activ | | (ZOSTRIX) 0.025% | Daily. | Tube | | 9/20 | | e | | cream | | | | 19 | | | + + + +---------+------+------+-------+ | fish oil 1,000 mg | Take 2 capsules by | 180 | 3 | 11/0 | | Activ | | capsuleIndications: | mouth nightly. | capsule | | 6/20 | | e | | Arthritis, | Indications: | | | 19 | | | | Hypercholesterolemia | Arthritis, High | | | | | | | , Hypertension, | Amount of | | | | | | | Inflammation, | Cholesterol in the | | | | | | | Osteoarthritis | Blood, High Blood | | | | | | | | Pressure Disorder, | | | | | | | | Inflammation, Joint | | | | | | | | Damage causing Pain | | | | | | | | and Loss of Function | | | | | | + + + +---------+------+------+-------+ | omeprazole | Take 1 capsule by | 180 | 3 | | | Activ | | (PRILOSEC) 20 mg | mouth 2 times daily. | capsule | | 04/11 | | e | | capsuleIndications: | | | | 19 | | | | Gastroesophageal | | | | | | | | reflux disease, | | | | | | | | esophagitis presence | | | | | | | | not specified | | | | | | | + + + +---------+------+------+-------+ | omeprazole | Take 1 capsule by | 180 | 0 | 03/23 | 0 | Disco | | (PRILOSEC) 20 mg | mouth 2 times daily. | capsule | | 01/09 | 04/11 | ntinu | | capsuleIndications: | | | | 19 | 19 | ed | | Gastroesophageal | | | | | | (Reor | | reflux disease, | | | | | | alexandre) | | esophagitis presence | | | | | | | | not specified | | | | | | | + + + +---------+------+------+-------+ | fish oil 1,000 mg | Take 2 capsules by | 180 | 0 | 04/22 | | Disco | | capsuleIndications: | mouth nightly. | capsule | | 05/11 | 04/11 | ntinu | | Arthritis, | Indications: | | | 19 | 19 | ed | | Hypercholesterolemia | Arthritis, High | | | | | (Reor | | , Hypertension, | Amount of | | | | | alexandre) | | Inflammation, | Cholesterol in the | | | | | | | Osteoarthritis | Blood, High Blood | | | | | | | | Pressure Disorder, | | | | | | | | Inflammation, Joint | | | | | | | | Damage causing Pain | | | | | | | | and Loss of Function | | | | | | + + + +---------+------+------+-------+ Active Problems + + + | Problem | Noted Date | + + + | Tobacco use | 05/08/2019 | + + + + + | Last Assessment & Plan: Pt is smoking at least 1ppdHe wakes | | up at 3 am and 5-30 am smokes 1-2 cigarettes and goes back to | | sleep. Pt advised of the dangers of smoking in bed.Advised to | | quit and spent 3-10 minutes counseling pt on cessation efforts. 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 | + + + + + | Annual physical exam | 02/13/2019 | + + + + + | Last Assessment & Plan: Labs ordered for draw in early March. | | Will perform PE and visit at end of March. | + + + + + | Emotional crisis, acute reaction to stress | 01/22/2019 | + + + + + | Last Assessment & Plan: Referral to Bakari Gonzáles LCSW to | | address current issues with the passing of [place]'s ex-, | | Nicole. | + + + + + | Dermatitis | 03/14/2018 | + + + + + | Overview: Unspecified contact dermatitis, unspecified cause. | + + + + + | Insomnia | 03/14/2018 | + + + | Ventral hernia without obstruction or gangrene | 03/14/2018 | + + + | Dysphagia | 03/14/2018 | + + + | Hyperplasia of prostate | 03/14/2018 | + + + | Pain management contract agreement | 10/11/2017 | + + + + + | Last Assessment & Plan: Patient on pain contract with | | provider that has recently left the practice. Taking 4-6 [place] | | daily. Patient wishes to continue pain regimen for her would | | like to increase [place] from 4-6 daily to better control pain. | | Will have patient follow-up with Javier Palmer for further pain | | management with further changes to pain medications directed by | | him. | + + + + + | Pulmonary nodules | 09/24/2017 | + + + + + | Last Assessment & Plan: Repeat chest CT in September to assess | | stability of noted pulmonary nodules. | + + + +---+ | AAA (abdominal aortic aneurysm) | | + +---+ | Acid reflux disease | | + +---+ + + | Last Assessment & Plan: Acid reflux controlled on Omeprazole | | 20 mg BID, 30 mins before meals. Request for refill today. | + + + +---+ | Joyce's esophagus | | + +---+ | Benign thyroid cyst | | + +---+ | Chronic low back pain | | + +---+ + --+ | Last Assessment & Plan: 3 prescriptions of [place] printed and | | sent to [facility].Pain exacerbated with more physical | | activity yesterday. 30 mg Toradol IM offered; pt consented and | | tolerated the IM inj well.Continue with Gabapentin as | | directed.UDS from 05/08/19 reviewed and was consistent with the | | prescribed hydrocodone.PDMP reviewed and is consistent.No pills | | available to count today. Pt reminded to bring in his pills for | | the required count.Urine sample for UDS collected today. | |No pills available to count today. Pt reminded to bring in his pills for the required count . | |Urine sample for UDS collected today. 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 | + + + +---+ | Hypertension | | + +---+ + + | Last Assessment & Plan: BP is optimized. No change in | | treatment indicated at today's visit.Lisinopril 20 mg qd and | | Prazosin 2 mg BID will be continued. | + + + +---+ | Hyperlipidemia | | + +---+ + + | Last Assessment & Plan: Fish OIL 2 g po qhs | | Rx sent to [facility] | + + + +---+ | Osteoporosis | | + +---+ | Hx of colonic polyps | | + +---+ Resolved Problems + + + + | Problem | Noted | Resolved | | | Date | Date | + + + + | Encounter for medical examination to establish care | 08/13/20 | | | | 18 | 9 | + + + + + + | Last Assessment & Plan: Pt presents today to establish a | | chronic pain management care plan with David Palmer PA-C at [facility] today. | + + Encounters +--------+ + + + + | Date | Type | Specialty | Care Team | Description | +--------+ + + + + | 08/27/ | Refill | Primary Care | Aric Palmer | Medication Refill | | 2018 | | | [place] | | +--------+ + + + + | 07/01/ | Refill | Primary Care | Aric Palmer | Medication Refill | | 2018 | | | [place] | | +--------+ + + + + | 06/27/ | Documentati | Primary Care | Aric Palmer | | | 2019 | on | | [place] | | +--------+ + + + + | 06/12/ | Office | Primary Care | Aric Palmer | Chronic midline low | | 2019 | Visit | | [place] | back pain with | | | | | | bilateral sciatica; | | | | | | Essential | | | | | | hypertension | +--------+ + + + + from Last 3 Months Immunizations + + + + | Name | Administration Dates | Next Due | + + + + | INFLUENZA 66 Y OR >, | 09/05/2017 | | | TRIVALENT HIGH-DOSE | | | + + + + | INFLUENZA PF | 08/09/2018 | | | QUAD(PED/ADOL/ADULT) | | | | ,PSKT or VIAL | | | + + + + | PNEUMOCOCCAL | 08/09/2018 | | | POLYSACCHARIDE | | | | 23-VALENT (PPSV23) | | | + + + + | TDAP, (ADOL/ADULT) | 10/23/2015 | | + + + + Family History + + +------+ + | Medical History | Relation | Name | Comments | + + +------+ + | Lung cancer | Father | | | + + +------+ + | Hypertension | Mother | | | + + +------+ + | Lung cancer | Mother | | | + + +------+ + + +------+ + + | Relation | Name | Status | Comments | + +------+ + + | Father | | | | + +------+ + + | Mother | | | | + +------+ + + Social History + + + [...] recent travel history available. | + + Last Filed Vital Signs + + + [...] | | + + + + + Plan of Treatment + + + + + | Health Maintenance | Due Date | Last Done | Comments | + + + + + | Vaccine: Zoster (1 | | | | | of 2) | 6 | | | + + + + + | Adult Annual | | | | | Wellness Visit | 7 | | | + + + + + | Vaccine: Influenza | | 08/09/2018, 09/05/2017 | | | (#1) | 9 | | | + + + + + | Vaccine: | | 08/09/2018 | | | Pneumococcal 65+ | 9 | | | | Low/Medium Risk (2 | | | | | of 2 - PCV13) | | | | + + + + + | Primary Care | | 06/12/2019, 05/08/2019, | | | Outreach (Intense | 9 | 04/04/2019, Additional history | | | Risk) | | exists | | + + + + + | Lung Cancer | | 10/15/2018, 07/31/2017, | | | Screening | 9 | 07/31/2017, Additional history | | | | | exists | | + + + + + | Urine Drug Screening | | 06/12/2019, 05/08/2019, | | | | 0 | 02/13/2019, Additional history | | | | | exists | | + + + + + | Colorectal Cancer | | 04/21/2011 | | | Screening | 1 | | | | (Colonoscopy) | | | | + + + + + | Vaccine: | | 10/23/2015 | | | Dtap/Tdap/Td (2 - | 6 | | | | Td) | | | | + + + + + | Hepatitis C | Completed | 05/08/2018 | | | Screening | | | | + + + + + Procedures + +--------+ + + + | Procedure Name | Priori | Date/Time | Associated Diagnosis | Comments | | | ty | | | | + +--------+ + + + | URINALYSIS | Routin | 06/12/2019 | Routine medical | Results for this | | | e | 4:07 PM | exam | procedure are in the | | | | PDT | | results section. | + +--------+ + + + | DRUGS OF ABUSE, | Routin | 06/12/2019 | Pain management | Results for this | | PANEL, PAIN | e | 4:07 PM | | procedure are in the | | MANAGEMENT 1, REFLEX | | PDT | | results section. | + +--------+ + + + from Last 3 Months Results Drugs of Abuse, Panel, Pain Management [...] | | | | | | - SARAH | | | | | | CAMPOS [...] | | (REF) | | | - SARAH | | | | | | CAMPOS [...] | | | | | | - SARAH | | | | | | CAMPOS | | + + + + + + | Lorazepam | NEGATIVE | <50 ng/mL | REFERENCE | | | Confirm, | | | [facility] | | | Urine | | | DIAGNOSTICS | | | | | | - SARAH | | | | | | CAMPOS [...] BATES | | | | | | CAPMOS | | + + + + + + | Temazepam | CONSISTENT | | REFERENCE | | | medMATCH | | | [facility] | | | | | | DIAGNOSTICS | | | | | | - SARAH | | | | | | CAMPOS | | + + + + + + | Marijuana | NEGATIVE | <20 ng/mL | REFERENCE | | | Metabolite | | | [facility] | | | | | | DIAGNOSTICS | | | | | | - SARAH | | | | | | CAMPOS [...] | | | | | | - SARAH | | | | | | CAMPOS [...] | | | | | | - SARAH | | | | | | CAMPOS [...] | | | | | | - SARAH | | | | | | CAMPOS [...] | CAMPOS | | | | 2: This metabolite [...] Specialist: | | | | | | [phone] [phone] | | | | | | [...] Diagnostics | | | | | | [facility] | | | | | | Maryann. [...] Diagnostics | | | | | | [facility] | | | | | | Kathia Pastor M.D., | | | | | | Ph.D., Laboratory | | | | | | Director [id number] | | | | | | [facility] | | | | | | [place] [address] | | | | | | CLIA #[id number] | | | | + + + + + + + + | Specimen | + + | Urine | + + + + + + + | Performing | Address | City/State/Zipcode | Phone Number | | Organization | | | | + + + + + | REFERENCE LAB | [id number] [facility] | [place], [place] | | | [facility] - | | [address] | | | [place] C[facility]OS | | | | + + + + + Urinalysis (06/12/2019 4:07 PM PDT) + + [...] - 1.030 | [place] | | | [place] | | | [place]ON[place] | | | [...] + + | [place] [facility] | [address] | [place] [address] | [phone] | | [facility] | | | | + + + + + from Last 3 Months Insurance + +--------+ +--------+ +---------+--------+ | Payer | Benefi | Subscriber | Effect | Phone | Address | Type | | | t Plan | ID | lindy | | | | | | / | | Dates | | | | | | Group | | | | | | + +--------+ +--------+ +---------+--------+ | [employer] | [place] | [id number] | | | | Indemn | | | NS | | 018-Pr | | | ity | | | ADMIN | | esent | | | | | | [place] | | | | | | | | [place] | | | | | | + +--------+ +--------+ +---------+--------+ | [employer] | [place] | [id number] | 09/21/ | | | Indemn | | | CHOICE | | 2014-P | | | ity | | | PC3 | | resent | | | | + +--------+ +--------+ +---------+--------+ | [employer] | [place] | [id number] | 05/23/20 | | | Indemn | | | CHOICE | | 17-Pre | | | ity | | | PC3 | | sent | | | | + +--------+ +--------+ +---------+--------+ | MEDICARE | MEDICA | [id number] | 12/26/19 | [phone] | | Medica | | | RE | | 18-Pre | 5 | | re | | | PART A | | sent | | | | + +--------+ +--------+ +---------+--------+ + +--------+ +--------+ + + | Guarantor Name | Accoun | Relation to | Date | Phone | Billing Address | | | t Type | Patient | of | | | | | | | | | | + +--------+ +--------+ + + | Washington Avila | Person | Self | [birth year] | | [address] | | | al/Fam | | 1945 | [phone] | [place] [address] | | | [email or web address] | | | 7 (Home) | | + +--------+ +--------+ + + | Washington Avila | Person | Self | [birth year] | | [address] | | | al/Fam | | 1945 | [phone] | [place] [address] | | | dominique | | | 7 (Home) | | + +--------+ +--------+ + + Advance Directives + + + + + | Type | Date Recorded | Patient | Explanation | | | | Spout Positioner | | + + + + + | Power of | | | | | Clarifier Operator | | | | + + + + + | Advance | 05/08/2019 2:24 | | | | Directive | PM | | | + + + + +
--- OUTSIDE RECORDS SUMMARY | ~2019-09-01 | XMS | Encounter Summary ---
Demographics + + + | Address | [address] | | | [place] [address] | + + + | Home Phone [...] | [facility] | | | and [place] | + + + | Organization | [facility] | | [...] Team Providers + +------+ + | Care Academic Administrator Name | Role | Phone | [...] | Results | | 2018 | | [facility] | D, MANAGER ORDER ONE | | | | | PRIMARY CARE [address] | [facility] | | | | | JET [facility], | [place], [place] [address] | | | | | [place] [address] | [phone] | | | | | [phone] | | | +--------+ + + + [...]
--- OUTSIDE RECORDS SUMMARY | ~2019-09-01 | XMS | Encounter Summary ---
Demographics + + + | Address | [address] | | | [place] [address] | + + + | Home Phone [...] + | Author | [facility] | | | and [place] | + + + | Organization | [facility] | | | and [place] [...] Team Providers + +------+ + | Care Bridal Gown Fitter Name | Role | Phone | + +------+ + | Faith Rodríguez FLOTATION TANK OPERATOR | PCP | | + +------+ + Encounter Details +--------+ + + + + | Date | Type | Department | Care Team | Description | +--------+ + + + + | 07/20/ | [facility] | [place] | Faith Rodríguez | | | 2017 | Encounter | [facility] | D, KEN ONE | | | | | PRIMARY CARE [address] | [facility] | | | | | JET [facility], | [place] [address] | | | | | [place] [address] | [phone] | | | | | [phone] | | | +--------+ + + + [...]
--- OUTSIDE RECORDS SUMMARY | ~2019-09-01 | XMS | Encounter Summary ---
Demographics + + + | Address | [address] | | | [place] [address] | + + + | Home Phone [...] + + | Author | [facility] | | | and [place] | + + + | Organization | [facility] | | | and [...] Team Providers + +------+ + | Care Mannequin Decorator Name | Role | Phone | + +------+ + | Faith Rodríguez FORESTRY WORKER | PCP | | + +------+ + [...] artery | MD Brendan | [address] | | | | | disease, | [address] | [place], | | | | | angina | [place] | [place] | | | | | presence | [place], [place] | [address] | | | | | unspecified, | [address] | Phone: | | | | | unspecified | Phone: | [phone] | | | | | vessel or | [phone] | Fax: | | | | | lesion type, | Fax: | [phone] | | | | | unspecified | [phone] | | | | | | whether | | | | | | | [place] or | | | | | | [...] | | | | | | STUDIES MS | | | | | | | CV STRS TST | | | | | | | XERS&/OR RX | | | | | | | CONT ECG W/O | | | | | | | I&R MS | | | | | | [...] artery | MD Brendan | [address] | | | | | disease, | [address] | [place], | | | | | angina | [place] | [place] | | | | | presence | [place], [place] | [address] | | | | | unspecified, | [address] | Phone: | | | | | unspecified | Phone: | [phone] | | | | | vessel or | [phone] | Fax: | | | | | lesion type, | Fax: | [phone] | | | | | unspecified | [phone] | | | | | | whether | | | | | | | [place] or | | | | | | [...] | | | | | | STUDIES MS | | | | | | | CV STRS TST | | | | | | | XERS&/OR RX | | | | | | | CONT ECG W/O | | | | | | | I&R MS | | | | | | [...] + + | 01/02/ | Hospital | [facility] | Deangelo Little | Coronary artery | | 2018 | Encounter | MED CTR NUCLE[facility] | MD Brendan [address] | disease, angina | | | | MEDICINE [address] [place] | presence | | | | [address] [place], | [place] [address] | unspecified, | | | | [place] [address] | [phone] | unspecified vessel | | | | [phone] | | or lesion type, | | | | | Payroll Services Analyst, [facility] | unspecified whether | | | | | | [place] or | | | | | | [...] | | | | | | type ([facility]) | | | | | | + [...] whether | | | | | | [place] or | | | | | | [...] 46%. Signed by: Kya Little MD PhD [facility] | | | 01/02/2018, 14:05 | | [...] or lesion | | type, unspecified whether [place] or transplanted heart | + + | [...] PDT | | | | | Starting [facility] 01/02/18 at 0923, For | | | [...] | | | | | | Starting [facility] 01/02/18 at 0923, For | | | | | | | 1 dose, Nuclear Medicine | | | | | | + +-------+ + +---+---+ +---+---+ | | | +---+---+ documented in this encounter"
--- OUTSIDE RECORDS SUMMARY | ~2019-09-01 | XMS | Encounter Summary ---
Demographics + + + | Address | [address] | | | [place] [address] | + + + | Home Phone [...] + | Author | [facility] | | | and [place] | + + + | Organization | [facility] | | | and [place] [...] Team Providers + +------+ + | Care Pulmonary Physician Name | Role | Phone | [...] (Request for | | 2018 | | [facility] | D, [facility] [address] | letter stating | | | | PRIMARY CARE [address] [place] | living conditions) | | | | [facility], | [place], [place] [address] | | | | | [place] [address] | [phone] | | | | | [phone] | | | +--------+ + + + [...]
--- OUTSIDE RECORDS SUMMARY | ~2019-09-01 | XMS | Encounter Summary ---
Demographics + + + | Address | [address] | | | [place] [address] | + + + | Home Phone [...] | [facility] | | | and [place] | + + + | Organization | [facility] | | [...] Team Providers + +------+ + | Care Masonry Teacher Name | Role | Phone | [...] | | | | | | | [address] | | +--------+--------+ + + + + Encounter Details +--------+ + + + + | Date | Type | Department | Care Team | Description | +--------+ + + + + | 08/09/ | Imaging | [facility] | Provider, | | | 2017 | Exam | MED CTR EXTERNAL | MD Te[address] | | | | | IMAGING | [address] | | | | | [phone] | [place] [address] | | +--------+ + + + + [...]
--- OUTSIDE RECORDS SUMMARY | ~2019-09-01 | XMS | Encounter Summary ---
Demographics + + + | Address | [address] | | | [place] [address] | + + + | Home Phone | | + + + | Preferred Language | Unknown | + + + | Marital Status | | + + + | Baptist Affiliation | Unknown | + + + | Race | Unknown | + + + | Ethnic Group | Unknown | + + + Author + + + | Author | [facility] | | | and [place] | + + + | Organization | [facility] | | | and [...] Team Providers + +------+ + | Care Artificial Log Machine Operator Name | Role | Phone [...] E | [facility], | | | | | [facility], | [place] [address] | | | | | [place] [address] | [phone] | | | | | [phone] | | | +--------+ + + + [...]
--- OUTSIDE RECORDS SUMMARY | ~2019-09-01 | XMS | Encounter Summary ---
Demographics + + + | Address | [address] | | | [place] [address] | + + + | Home Phone [...] + | Author | [facility] | | | and [place] | + + + | Organization | [facility] | | | and [...] Providers + +------+ + | Care Manager Economic Name | Role | Phone | + [...] Medication Refill | | 2017 | | [facility] | D, MEDIA RELATIONS MANAGER ONE | | | | | PRIMARY CARE [address] | [facility] | | | | | [facility], | [place] [address] | | | | | [place] [address] | [phone] | | | | | [phone] | | | +--------+ + + + [...]
--- OUTSIDE RECORDS SUMMARY | ~2019-09-01 | XMS | Encounter Summary ---
Demographics + + + | Address | [address] | | | [place] [address] | + + + | Home Phone [...] | [facility] | | | and [place] | + + + | Organization | [facility] | | | [...] Team Providers + +------+ + | Care Publications Production Supervisor Name | Role | Phone | [...] | [facility], | [place] [address] | | | | | [place] [address] | [phone] | | | | | [phone] | | | +--------+ + + + [...]
--- OUTSIDE RECORDS SUMMARY | ~2019-09-01 | XMS | Encounter Summary ---
Demographics + + + | Address | [address] | | | [place] [address] | + + + | Home Phone | | + + + | Preferred Language | Unknown | + + + | Marital Status | | + + + | Sabianism Affiliation | Unknown | + + + | Race | Unknown | + + + | Ethnic Group | Unknown | + + + Author + + + | Author | [facility] | | | and [place] | + + + | Organization | [facility] | [...] Team Providers + +------+ + | Care Boring Machine Operator Helper Name | Role | Phone | + +------+ + | Aric Palmer | PCP | | | LETTY | | | + +------+ + Encounter Details +--------+ + + + + | Date | Type | Department | Care Team | Description | +--------+ + + + + | 08/13/ | Documentati | [place] [facility] | Aric Palmer | | | 2018 | on | [facility] | LETTY [address] | | | | | PRIMARY CARE [address] | [place], | | | | | [place], | [place] [address] | | | | | [place] [address] | [phone] | | | | | [phone] | | | +--------+ + + + [...] this encounter Progress Notes Rosalia Harmon - 08/13/2018 2:31 PM PDTReceived 08-20-18 by : [facility] agentE lectronically signed by Rosalia Harmon at 08/30/2018 10:47 AM PSTRosalia Harmon - 08/13 2:31 PM PDTHydrocodone 5-325 mg qty 112 Certified mail to: Nyla Redmond [place] [address] [place] [address] Tracking number: [id number] signed by Rosalia Harmon at 08/13/2018 2:33 PM PDTdoc umented in this encounter Plan of Treatment Not on filedocumented as of this encounter Visit Diagnoses Not on filedocumented in this encounter"
--- OUTSIDE RECORDS SUMMARY | ~2019-09-01 | XMS | Encounter Summary ---
Demographics + + + | Address | [address] | | | [place] [address] | + + + | Home Phone [...] | Author | [facility] | | | and [place] | + + + | Organization | [facility] [...] Providers + +------+ + | Care Medical Videographer Name | Role | Phone | + +------+ + | Faith Rodríguez NP | PCP | | + +------+ + Reason for Visit + + + | Reason | Comments | + + + | Medication Question | | + + + Encounter Details +--------+ + + + + | Date | Type | Department | Care Team | Description | +--------+ + + + + | 03/21/ | Telephone | [place] [facility] | Faith Rodríguez | Medication Question | | 2018 | | [facility] | D, SLIMER ONE | | | | | PRIMARY CARE [address] | [facility] | | | | | [facility], | [place] [address] | | | | | [place] [address] | [phone] | | | | | [phone] | | | +--------+ + + + [...]
--- OUTSIDE RECORDS SUMMARY | ~2019-09-01 | XMS | Encounter Summary ---
Demographics + + + | Address | [address] | | | [place] [address] | + + + | Home Phone | | + + + | Preferred Language | Unknown | + + + | Marital Status | | + + + | Anabaptism Affiliation | Unknown | + + + | Race | Unknown | + + + | Ethnic Group | Unknown | + + + Author + + + | Author | [facility] | | | and [place] | + + + | Organization | [facility] | | | and [place] [...] Team Providers + +------+ + | Care Attendant [facility] Name | Role | Phone | + [...] Of Care | | 2019 | | [facility] | D, [address] | (Assistance with | | | | PRIMARY CARE [address] | being screened or | | | | [facility], | [place], [place] [address] | eligibility to move | | | | [place] [address] | [phone] | to terminal computer operator care | | | | [phone] | | facility) | +--------+ + + [...]
--- OUTSIDE RECORDS SUMMARY | ~2019-09-01 | XMS | Encounter Summary ---
Demographics + + + | Address | [address] | | | [place] [address] | + + + | Home Phone [...] | [facility] | | | and [place] | + + + | Organization | [facility] | | | and [...] Team Providers + +------+ + | Care Funeral Limousine Driver Name | Role | Phone | + +------+ + | Faith Rodríguez NP | PCP | | + +------+ + Encounter Details +--------+ + + + + | Date | Type | Department | Care Team | Description | +--------+ + + + + | 08/04/ | Hospital | [place] [facility] | Faith Rodríguez | | | 2016 | Encounter | HOSPITAL RES[facility]AT[facility] | KEN Palmer ONE | | | | | THERAPY [address] | [facility] | | | | | [address] [place], [place] | [place] [address] | | | | | [address] | [phone] | | | | | [phone] | | | +--------+ + + + [...]
--- OUTSIDE RECORDS SUMMARY | ~2019-09-01 | XMS | Encounter Summary ---
Demographics + + + | Address | [address] | | | [place] [address] | + + + | Home Phone | | + + + | Preferred Language | Unknown | + + + | Marital Status | | + + + | Sikh Affiliation | Unknown | + + + | Race | Unknown | + + + | Ethnic Group | Unknown | + + + Author + + + | Author | [facility] | | | and [place] | + + + | Organization | [facility] | | | and [place] [...] Team Providers + +------+ + | Care Licensed Tax Consultant Name | Role | Phone | [...] [address] | | | | | [place], | [place] | | | | | [place] [address] | [place] [address] | | | | | [phone] | [phone] | | | | | | | [...]
--- OUTSIDE RECORDS SUMMARY | ~2019-09-01 | XMS | Encounter Summary ---
Demographics + + + | Address | [address] | | | [place] [address] | + + + | Home Phone | | + + + | Preferred Language | Unknown | + + + | Marital Status | | + + + | Latter Day Affiliation | Unknown | + + + | Race | Unknown | + + + | Ethnic Group | Unknown | + + + Author + + + | Author | [facility] | | | and [place] | + + + | Organization | [facility] [...] Team Providers + +------+ + | Care Chemical Sales Representative Name | Role | Phone | + [...] Patient Concerns | | 2017 | | [facility] | D, GRAVITY FLOW IRRIGATOR ONE | | | | | PRIMARY CARE [address] | [facility] | | | | | [facility], | [place] [address] | | | | | [place] [address] | [phone] | | | | | [phone] | | | +--------+ + + + [...]
--- OUTSIDE RECORDS SUMMARY | ~2019-09-01 | XMS | Encounter Summary ---
Demographics + + + | Address | [address] | | | [place] [address] | + + + | Home Phone [...] [facility] | | | and [place] | + + + | Organization | [facility] [...] Team Providers + +------+ + | Care Test Facility Engineer Name | Role | Phone | + +------+ + PCP | Unavailable | + +------+ + Encounter Details +--------+ + + + + | Date | Type | Department | Care Team | Description | +--------+ + + + + | 06/13/ | [facility] | [place] [facility] | Faith Rodríguez | | | 2017 | Encounter | [facility] | D, DIRECTOR CASE ONE | | | | | PRIMARY CARE [address] | [facility] | | | | | [facility], | [place] [address] | | | | | [place] [address] | [phone] | | | | | [phone] | | | +--------+ + + + [...]
--- OUTSIDE RECORDS SUMMARY | ~2019-09-01 | XMS | Encounter Summary ---
Demographics + + + | Address | [address] | | | [place] [address] | + + + | Home Phone | | + + + | Preferred Language | Unknown | + + + | Marital Status | | + + + | Jehovah'S Witness Affiliation | Unknown | + + + | Race | Unknown | + + + | Ethnic Group | Unknown | + + + Author + + + | Author | [facility] | | | and [place] | + + + | Organization | [facility] | | | and [...] Team Providers + +------+ + | Care Auto Bench Mechanic Name | Role | Phone | [...] | HOSPITAL [facility] [address] | [address] | | | | | [address] | [address] | | | | | [place] | [place] [address] | | | | | [address] | [phone] | | | | | [phone] | | | +--------+ + + + [...]
--- OUTSIDE RECORDS SUMMARY | ~2019-09-01 | XMS | Encounter Summary ---
Demographics + + + | Address | [address] | | | [place] [address] | + + + | Home Phone [...] Author | [facility] | | | and Escobarana | + + + | Organization | [facility] | | [...] Team Providers + +------+ + | Care Oil Separator Name | Role | Phone | + +------+ + | Faith Rodríguez NP | PCP | | + +------+ + Reason for Visit + + + | Reason | Comments | + + + | Hypertension | | + + + Encounter Details +--------+---------+ + + + | Date | Type | Department | Care Team | Description | +--------+---------+ + + + | 05/08/ | Office | [facility] | Myrna Walker, | Congestive heart | | 2018 | Visit | [facility] | [employer] FIELD [facility]JUSTER [address] | failure, unspecified | | | | PRIMARY CARE [address] | [place] [address] | HF chronicity, | | | | [facility], | [phone] | unspecified heart | | | | [place] [address] | | failure type (HCC) | | | | [phone] | | (Primary Dx); | | | | | | Polypharmacy; | | | | | | Hyperthyroidism; | | | | | | Hypertension, | | | | | | unspecified type; | | | | | | Benign prostatic | | | | | | hyperplasia, | | | | | | unspecified whether | | | | | | lower urinary tract | | | | | | symptoms present; | | | | | | Need for hepatitis C | | | | | | screening test | +--------+---------+ + + + Social History [...] + + + | Blood Pressure | 120/56 | 05/08/2018 7:36 AM | | | | | PDT | | + + + + + | Pulse | 88 | 05/08/2018 7:36 AM | | | | | PDT | | + + + + + | Temperature | 36.2 C (97.2 F) | 05/08/2018 7:36 AM | | | | | PDT | | + + + + + | Respiratory Rate | 18 | 05/08/2018 7:36 AM | | | | | PDT | | + + + + + | Oxygen Saturation | 91% | 05/08/2018 7:36 AM | | | | | PDT | | + + + + + | Inhaled Oxygen | - | - | | | Concentration | | | | + + + + + | Weight | 62.6 kg (138 lb) | 05/08/2018 7:36 AM | | | | | PDT | | + + + + + | Height | 175.3 cm (5' 9") | 05/08/2018 7:36 AM | | | | | PDT | | + + + + + | Body Mass Index | 20.38 | 05/08/2018 7:36 AM | | | | | PDT | | + + + + + documented in this encounter Progress Karin Coffman CC CMA - 05/08/2018 7:30 AM PDTFormatting of this note might be differ ent from the original. APSO PROGRESS NOTE Pt. Name/Age/: Saturnino Avila 73 y.o. 1945 Med. Record Number: [id number] Assessment and Plan: 73-year-old male presents for follow-up exam. Patient has no changes from prior visit. No te from recent visit with seafood process worker reviewed. No changes from prior treatment plan. Tomás fagan continue to be monitored with medication management with yearly follow-up. Patient is fol lowed by the [place] and [facility]. Patient is down to 1 pack of cigarettes a day. He will continue to focus on decreasing use . Labs obtained today and will follow. Patient will return in 3 months for follow-up and as needed. Encouraged to continue to focus on staying active, is moderately active, however limited with exertional dyspnea. He denies chest pains per se. He has managed to cut back his smoking to about one pack per day. He believes that he has known about heart failure in the past but denies any previous invasive workup or revascularization. He is not a very go od historian. He also admits to a fair amount of alcohol use.ntly seen by seafood process worker and follow-up. Patient is followed by the [place]. He reports he receives all his [facility] as well. No problem-specific Assessment & Plan notes found for this encounter. 1. Congestive heart failure, unspecified HF chronicity, unspecified heart failure type (HCC ) B Type Natriuretic Peptide 2. Polypharmacy CBC with Differential 3. Hyperthyroidism T4, Free TSH 4. Hypertension, unspecified type Comprehensive Metabolic Panel 5. Benign prostatic hyperplasia, unspecified whether lower urinary tract symptoms present PSA, Screen 6. Need for hepatitis C screening test Hepatitis C, NAAT, Quant, Reflex Patient Active Problem List Diagnosis AAA (abdominal aortic aneurysm) Acid reflux disease Joyce's esophagus Benign thyroid cyst Chronic low back pain COPD (chronic obstructive pulmonary disease) Hypertension Hyperlipidemia Osteoporosis Hx of colonic polyps Pulmonary nodules Pain medication agreement signed Dermatitis Insomnia Ventral hernia without obstruction or gangrene Dysphagia Hyperplasia of prostate Social History Social History Marital status: Spouse name: N/A Number of children: N/A Years of education: N/A Social History Main Topics Smoking status: Current Every Day Smoker Packs/day: 1.00 Years: 62.00 Types: Cigarettes Start date: 05/19/1954 Smokeless tobacco: Never Used Alcohol use Yes Drug use: No Sexual activity: Not Currently Other Topics Concern None Social History Narrative None Family History Problem Relation Age of Onset Lung cancer Mother Hypertension Mother Lung cancer Father Subjective: The patient chart and medications were reviewed in detail and the patient was s een and examined. 73-year-old male with extensive medical history including heart failure, severe emphysema, prior anteroseptal NV and strokes, heavy tobacco use, abdominal aortic aneurysm and lower ex tremity [place] status post prior surgical revascularization, malnutrition and ventral hernia pr esents to the clinic for follow exam.Denies any chest pain or worsening shob from baseline,a bd pain or fever. Review of Systems Constitutional: Negative for chills and fever. HENT: Negative for congestion and ear pain. Eyes: Negative for redness. Respiratory: Positive for cough (baseline) and shortness of breath (baseline). Cardiovascular: Negative for chest pain and palpitations. Gastrointestinal: Negative for heartburn. Genitourinary: Positive for frequency. Negative for dysuria. Musculoskeletal: Back pain: chronic. Skin: Negative for rash. Neurological: Negative for headaches. Endo/Heme/Allergies: Does not bruise/bleed easily. Psychiatric/Behavioral: Negative for depression. Objective: Vitals: 05/08/18 0736 BP: 120/56 Pulse: 88 Resp: 18 Temp: 36.2 C (97.2 F) Physical Exam Constitutional: He is oriented to person, place, and time. Vital signs are normal. He appea rs well-developed. Underweight HENT: Head: Normocephalic and atraumatic. Eyes: Pupils [...] is normal. Nursing note and vitals reviewed. Current Medications: albuterol vitamin B complex Calcium Carb-Cholecalciferol capsaicin carvedilol clopidogrel cyclobenzaprine EPINEPHrine auto-injector fluocinonide gabapentin lisinopril nitroglycerin ENSURE PLUS HN nystatin omeprazole prazosin simvastatin tiotropium-olodaterol traZODone Orders Placed This Encounter Procedures B Type Natriuretic Peptide Standing Status: Future Number of Occurrences: 1 Standing Expiration Date: 05/08/2019 CBC with Differential Standing Status: Future Number of Occurrences: 1 Standing Expiration Date: 05/08/2019 T4, Free Standing Status: Future Number of Occurrences: 1 Standing Expiration Date: 05/08/2019 TSH Standing Status: Future Number of Occurrences: 1 Standing Expiration Date: 05/08/2019 Comprehensive Metabolic Panel Standing Status: Future Number of Occurrences: 1 Standing Expiration Date: 05/08/2019 PSA, Screen Standing Status: Future Number of Occurrences: 1 Standing Expiration Date: 05/08/2019 Hepatitis C, NAAT, Quant, Reflex Standing Status: Future Number of Occurrences: 1 Standing Expiration Date: 05/08/2019 Electronically signed by: RODRIGUEZ GutierrezC, 05/08/2018 13:49 No results found for this or any previous visit (from the past 24 hour(s)).Electronically s igned by EPI Gutierrez at 05/08/2018 1:49 PM PDTdocumented in this encounter Plan of Treatment Not on filedocumented as of this encounter Results Hepatitis C, NAAT, Quant, Reflex (05/08/2018 8:25 AM PDT) + + + + + + | Component | Value | Ref Range | Performed | Pathologist | | | | | At | Signature | + + + + + + | Hepatitis C | NONREACTIVE | | REFERENCE | | | Ab | | | [facility] | | | | | | [facility] | | | | | | - [facility] | | | | | | [facility] | | + + + + + + | Signal/Cuto | 0.04Comment: REFERENCE | | REFERENCE | | | ff | RANGE: NONREACTIVE | | LAB [facility] | | | | | | [facility] | | | | (SIGNAL TO CUTOFF <1.00) | | - [place] | | | | Test(s) performed at: | | [facility] | | | | [facility] | | | | | | [facility] [address] | | | | | | [address], [facility] | | | | | | Director [id number] | | | | | | [facility] | | | | | | [place] | | | | | | [id number] [place] | | | | | | #[id number] | | | | + + + + + + + + | Specimen | + + | Blood | + + + + + | Narrative | Performed At | + + + | Performing Organization Information: Site ID: HEPATITIS C | REFERENCE LAB | | ANTIBODY W/RFX TO HCV RNA,QUANT REAL-TIME PCR Name: | [facility] | | Address: , Director: | [facility]ST[facility] - | | | [facility] | | | [facility] | + + + + + + + + | Performing | Address | City/State/Zipcode | Phone Number | | Organization | | | | + + + + + | REFERENCE LAB | [address] | [place] | | | [facility] - | | [address] | | | [facility] | | | | + + + + + PSA, Screen (05/08/2018 8:25 AM PDT) + + + + + + | Component | Value | Ref Range | Performed | Pathologist | | | | | At | Signature | + + + + + + | PSA | 0.44Comment: PSA assay | 0.01 - 4.00 | [facility] | | | | utilizes Siemens | ng/mL | [facility] | | | | [facility] [place] | | HOSPITAL | | | | chemiluminescent | | LABORATORY | | | | methodology. | | | | + + + + + + + + | Specimen | + + | Blood | + + + + + + + | Performing | Address | City/State/Zipcode | Phone Number | | Organization | | | | + + + + + | [facility] | [address] | [place] [address] | [phone] | | HOSPITAL LAB[facility]ORY | | | | + + + + + Comprehensive Metabolic Panel (05/08/2018 8:25 AM PDT) + + + + + + | Component | Value | Ref Range | Performed | Pathologist | | | | | At | Signature | + + + + + + | Na | 144 (H) | 132 - 143 | [facility] | | | | | mmol/L | [facility] | | | | | | [facility] | | | | | | LABORATORY | | + + + + + + | K | 4.7 | 3.3 - 4.9 | [facility] | | | | | mmol/L | [facility] | | | | | | [facility] | | | | | | LABORATORY | | + + + + + + | Cl | 107 | 95 - 108 mmol/L | [facility] | | | | | | [facility] | | | | | [facility] | | | | | | LABORATORY | | + + + + + + | CO2 | 30 [...] + + + + | Glucose | 124 (H) | 70 - 110 mg/dL | [facility] | | | | | | [facility] | | | | | | [facility] | | | | | | LABORATORY | | + + + + + + | BUN | 19 | 5 - 26 mg/dL | [facility] | | | | | | [facility] | | | | [facility] | | | | | | LAB[facility]ATORY | | + + + + + + | Creatinine | 0.90 | 0.70 - 1.40 | [facility] | | | | | mg/dL | [facility] | | | | | | [facility] | | | | | | LABORATORY | | + + + + + + | eGFR if not | >60Comment: GLOMERULAR | >=60 | [facility] | | | | FILTRATION | mL/min/1.73m2 | [facility] | | | [facility]OME[facility] | RATE,ESTIMATED | | HOSPITAL | | | | mL/min/1.94m8Ivfv than | | LABORATORY | | | [...] + + + + | Calcium | 9.0 | 8.3 - 10.0 | [facility] | | | | | mg/dL | [facility] | | | | | | [facility] | | | | | | LABORATORY | | + + + + + + | Albumin | 3.5 | 3.0 - 4.5 g/dL | [facility] | | | | | | [facility] | | | | | | [facility] | | | | | | LABORATORY | | + + + + + + | Bilirubin | 0.6 | 0.0 - 1.2 mg/dL | [facility] | | | Total | | | [facility] | | | | | | [facility] | | | | | | LABORATORY | | + + + + + + | Total | 7.1 | 6.6 - 8.5 g/dL | [facility] | | | Protein | | | [facility] | | | | | | [facility] | | | | | | LABORATORY | | + + + + + + | AST | 25 | 0 - 38 U/L | [facility] | | | | | | [facility] | | | | | [facility] | | | | | | LABORATORY | | + + + + + + | ALT | 21 | 16 - 63 U/L | [facility] | | | | | | [facility] | | | | [facility] | | | | | | LAB[facility]ATORY | | + + + + + + | Alkaline | 57 | 46 - 116 U/L | [facility] | | | Phosphatase | | | [facility] | | | | | | [facility] | | | | | | LABORATORY | | + + + + + + | Globulin | 3.6 | g/dL | [facility] | | | | | | [facility] | [facility] | [facility] | | | | | | LABORATORY | | + + + + + + | Albumin/[place] | 1.0 | | [facility] | | | bulin Ratio | | | [facility] | | | | | [facility] | | | | | | LABORATORY | | + + + + + + | BUN/Creatin | 21.1 | 7.0 - 24.0 | [facility] | [...] + + | [facility] | [address] | [place] [address] | [phone] | | HOSPITAL [facility] | | | | + + + + + TSH (05/08/2018 8:25 AM PDT) + +-------+ + + + | Component | Value | Ref Range | Performed | Pathologist | | | | | At | Signature | + +-------+ + + + | TSH | 1.83 | 0.36 - 3.74 | [facility] | [...] + + | [facility] | [address] | [place] [address] | [phone] | | HOSPITAL [facility] | | | | + + + + + T4, Free (05/08/2018 8:25 AM PDT) + +-------+ + + + | Component | Value | Ref Range | Performed | Pathologist | | | | | At | Signature | + +-------+ + + + | FT4 | 0.8 | 0.8 - 1.5 ng/dL | [facility] | | | | | [...] + + | [facility] | [address] | [place] [address] | [phone] | | HOSPITAL [facility] | | | | + + + + + CBC with Differential (05/08/2018 8:25 AM PDT) + + + + + + | Component | Value | Ref Range | Performed | Pathologist | | | | | At | Signature | + + + + + + | WBC | 8.4 | 4.6 - 10.5 K/uL | [facility] | | | | | | [facility] | | | | | | [facility]AT[facility] | | + + + + + + | RBC | 4.16 (L) | 4.36 - 5.83 | [facility] | | | | | M/uL | [facility] | [facility] | [facility] | | | | | | LAB[facility]ATORY | | + + + + + + | Hemoglobin | 14.5 | 13.1 - 17.4 | [facility] | | | | | g/dL | [facility] | | [facility] | [facility] | | | | | | LAB[facility]AT[facility] | | + + + + + + | Hct | 42.9 | 39.0 - 51.9 % | [facility] | | | | | | [facility] | | | | | | [facility]AT[facility] | | + + + + + + | MCV | 103.1 (H) | 82.0 - 96.0 fL | [facility] | | | | | | [facility] | | | | | | [facility] | | + + + + + + | MCH | 34.9 (H) | 27.7 - 32.3 pg | [facility] | | | | | | [facility] | | | | | | [facility]ATORY | | + + + + + + | MCHC | 33.8 | 32.0 - 36.9 | [facility] | | | | | g/dL | [facility] | | | | [facility] | | | | | | LAB[facility]AT[facility] | | + + + + + + | RDW-CV | 12.9 | 0.0 - 17.0 % | [facility] | | | | | | [facility] | | | | | | [facility]AT[facility] | | + + + + + + | Platelet | 178 | 150 - 450 K/uL | [facility] | | | Count | | | [facility] | | | | [facility] | | | | | | LAB[facility]AT[facility] | | + + + + + + | MPV | 10.7 | 9.4 - 12.4 fL | [facility] | | | | | | [facility] | | | | | | [facility] | | + + + + + + | % | 66.2 | 42.0 - 76.0 % | [facility] | | | Neutrophils | | | [facility] | | | | | [facility] | | | | | | LAB[facility]AT[facility] | | + + + + + + | % | 19.8 (L) | 20.0 - 40.0 % | [facility] | | | Lymphocytes | | | [facility] | | [facility] | [facility] | | | | | | LAB[facility]AT[facility] | | + + + + + + | % Monocytes | 7.8 | 3.0 - 13.0 % | [facility] | | | | | | [facility] | | | | [facility] | | | | | | [facility]AT[facility] | | + + + + + + | % | 5.5 | 0.0 - 7.0 % | [facility] | | | Eosinophils | | | [facility] | | | | [facility] | | | | | | LAB[facility]AT[facility] | | + + + + + + | % Basophils | 0.5 | 0.0 - 2.0 % | [facility] | | | | | | [facility] | | | | [facility] | | | | | | [facility]AT[facility] | | + + + + + + | % Immature | 0.2 | 0.0 - 0.5 % | [facility] | | | Granulocyte | | | [facility] | | | s | | | HOSPITAL | | | | | | LABORATORY | | + + + + + + | Absolute | 5.55 | 2.80 - 7.70 | [facility] | | | Neutrophils | | K/uL | [facility] | | | | | [facility] | | | | | | LAB[facility]AT[facility] | | + + + + + + | Absolute | 1.66 | 1.20 - 3.30 | [facility] | | | Lymphocytes | | K/uL | [facility] | [facility] | [facility] | | | | | | LAB[facility]AT[facility] | | + + + + + + | Absolute | 0.65 | 0.00 - 0.80 | [facility] | | | Monocytes | | K/uL | [facility] | | | | | [facility] | | | | | | LAB[facility]ATORY | | + + + + + + | Absolute | 0.46 | 0.00 - 0.70 | [facility] | | | Eosinophils | | K/uL | [facility] | | | | | | [facility] | | | | | | LAB[facility]ATORY | | + + + + + + | Absolute | 0.04 | 0.00 - 0.20 | [facility] | | | Basophils | | K/uL | [facility] | | | | | | [facility] | | | | | | LAB[facility]AT[facility] | | + + + + + + | Absolute | 0.02 | 0.00 - 0.15 | [facility] | | | Immature | | K/UL | [facility] | | | Granulocyte | | | HOSPITAL | | | s | | | LABORATORY | | + + + + + + | % nRBC | 0 | 0 - 0 per 100 | [facility] | | | | | WBC's | [facility] | | | | | | [facility] | | | | | | LAB[facility]AT[facility] | | + + + + + + | Absolute | 0.00 | 0.00 - 0.01 | [facility] | | | nRBC | | K/UL | [facility] | | | | | [...] + + | [facility] | [address] | [place] [address] | [phone] | | HOSPITAL [facility] | | | | + + + + + B Type Natriuretic Peptide (05/08/2018 8:25 AM PDT) + +---------+ + + + | Component | Value | Ref Range | Performed | Pathologist | | | | | At | Signature | + +---------+ + + + | NT-proBNP | 890 (H) | 0 - 125 pg/mL | [...] + + | [facility] | [address] | [place] [address] | [phone] | | HOSPITAL [facility] | | | | + + + + + documented in this encounter Visit Diagnoses + + | Diagnosis | + + | Congestive heart failure, unspecified HF chronicity, unspecified heart failure type | | (HCC) - Primary | + + | Polypharmacy Issue of repeat prescriptions | + + | Hyperthyroidism Thyrotoxicosis without mention of goiter or other cause, without | | mention of thyrotoxic crisis or storm | + + | Hypertension, unspecified type | + + | Benign prostatic hyperplasia, unspecified whether lower urinary tract symptoms present | + + | Need for hepatitis C screening test Special screening examination for other specified | | viral diseases | + + documented in this encounter
--- OUTSIDE RECORDS SUMMARY | ~2019-09-01 | XMS | Encounter Summary ---
Demographics + + + | Address | [address] | | | [place] [address] | + + + | Home Phone | | + + + | Preferred Language | Unknown | + + + | Marital Status | | + + + | Amish Affiliation | Unknown | + + + | Race | Unknown | + + + | Ethnic Group | Unknown | + + + Author + + + | Author | [facility] | | | and [place] | + + + | Organization | [facility] | | | and [...] Team Providers + +------+ + | Care Brazing Machine Setter Name | Role | Phone | + +------+ + PCP | Unavailable | + +------+ + Encounter Details +--------+ + + + + | Date | Type | Department | Care Team | Description | +--------+ + + + + | 05/08/ | [facility] | [facility] | Faith Rodríguez | | | 2017 | Encounter | [facility] | D, [address] | | | | | PRIMARY CARE [address] | [facility] | | | | | [facility], | [place] [address] | | | | | [place] [address] | [phone] | | | | | [phone] | | | +--------+ + + + [...]
--- OUTSIDE RECORDS SUMMARY | ~2019-09-01 | XMS | Encounter Summary ---
Demographics + + + | Address | [address] | | | [place] [address] | + + + | Home Phone | | + + + | Preferred Language | Unknown | + + + | Marital Status | | + + + | Spiritism Affiliation | Unknown | + + + | Race | Unknown | + + + | Ethnic Group | Unknown | + + + Author + + + | Author | [facility] | | | and [place] | + + + | Organization | [facility] | | [...] Team Providers + +------+ + | Care Sawmill Hand Name | Role | Phone | [...] | Results | | 2018 | | [facility] | D, [address] | | | | | PRIMARY CARE [address] | [facility] | | | | | JET [facility], | [place], [place] [address] | | | | | [place] [address] | [phone] | | | | | [phone] | | | +--------+ + + + [...]
--- OUTSIDE RECORDS SUMMARY | ~2019-09-01 | XMS | Encounter Summary ---
Demographics + + + | Address | [address] | | | [place] [address] | + + + | Home Phone [...] | Author | [facility] | | | and [place] | + + + | Organization | [facility] [...] Team Providers + +------+ + | Care Radio Survey Worker Name | Role | Phone | + +------+ + PCP | Unavailable | + +------+ + Encounter Details +--------+ + + + + | Date | Type | Department | Care Team | Description | +--------+ + + + + | 05/08/ | [facility] | [facility] | Faith Rodríguez | | | 2017 | Encounter | [facility] | D, [address] | | | | | PRIMARY CARE [address] | [facility] | | | | | JET [facility], | [place] [address] | | | | | [place] [address] | [phone] | | | | | [phone] | | | +--------+ + + + [...]
--- OUTSIDE RECORDS SUMMARY | ~2019-09-01 | XMS | Encounter Summary ---
Demographics + + + | Address | [address] | | | [place] [address] | + + + | Home Phone [...] | Author | [facility] | | | and [place] | + + + | Organization | [facility] | | | and [place] | + + + | Address | Unknown | + + + | Phone | Unavailable | + + + Support + + +---------+ + | Name | Relationship | Address | Phone | + + +---------+ + | Salina Prudy | ECON | Unknown | | + + +---------+ + Care Team Providers + +------+ + | Care Warrant Server Name | Role | Phone | + [...] | PR[address] C[address] | [facility], | | | | | [facility], | [place] [address] | | | | | [place] [address] | [phone] | | | | | [phone] | | | +--------+ + + + [...]
--- OUTSIDE RECORDS SUMMARY | ~2019-09-01 | XMS | Encounter Summary ---
Demographics + + + | Address | [address] | | | [place] [address] | + + + | Home Phone | | + + + | Preferred Language | Unknown | + + + | Marital Status | | + + + | Mandaen Affiliation | Unknown | + + + | Race | Unknown | + + + | Ethnic Group | Unknown | + + + Author + + + | Author | [facility] | | | and [place] | + + + | Organization | [facility] [...] Team Providers + +------+ + | Care Eyeglass Cutter Name | Role | Phone | + [...] exam | | 2019 | Orders | [facility] | [address] | (Primary Dx); | | | | [address] | JET [facility], | Routine medical exam | | | | [facility], [place] | [place] [address] | | | | | [address] | [phone] | | | | | [phone] | | | +--------+ + + + [...] - 1.030 | [facility] | | | [place] | | | [facility] | | | [...] + + | [facility] | [address] | [place] [address] | [phone] | | HOSPITAL LAB[facility]ATORY | | | | + + + + + documented in this encounter Visit Diagnoses + + | Diagnosis | + + | Annual physical exam - Primary Routine general medical examination at a university hospital | | facility | + + | Routine medical exam Routine general medical examination at a health care facility | + + documented in this encounter"
--- OUTSIDE RECORDS SUMMARY | ~2019-09-01 | XMS | Encounter Summary ---
Demographics + + + | Address | [address] | | | [place] [address] | + + + | Home Phone [...] | Author | [facility] | | | and [place] | + + + | Organization | [facility] [...] Team Providers + +------+ + | Care Rotoprinter Name | Role | Phone | + [...] Medication Refill | | 2019 | | [facility] | [address] | | | | | PRIMARY CARE [address] | [facility], | | | | | [facility], | [place] [address] | | | | | [place] [address] | [phone] | | | | | [phone] | | | +--------+--------+ + + + [...]
--- OUTSIDE RECORDS SUMMARY | ~2019-09-01 | XMS | Encounter Summary ---
Demographics + + + | Address | [address] | | | [place] [address] | + + + | Home Phone [...] | Author | [facility] | | | and [place] | + + + | Organization | [facility] | | | and [place] [...] Team Providers + +------+ + | Care Ranger Aide Name | Role | Phone | + +------+ + | Aric Palmer | PCP | | | [place] | | | + +------+ + Reason for Visit + + + | Reason | Comments | + + + | Provide Resources | CHW assistance with moving into alf care facility | + + + Encounter Details +--------+ + + + + | Date | Type | Department | Care Team | Description | +--------+ + + + + | 05/29/ | Telephone | [place] [facility] | Estrellita Brasher | Provide Resources | | 2019 | | [facility] | [address] | ([facility] assistance with | | | | PRIMARY C[address] [place] | moving into long | | | | [facility], | [place] [address] | term care [facility]) | | | | [place] [address] | [phone] | | | | | [phone] | | | +--------+ + + + [...]
--- OUTSIDE RECORDS SUMMARY | ~2019-09-01 | XMS | Encounter Summary ---
Demographics + + + | Address | [address] | | | [place] [address] | + + + | Home Phone [...] Author | [facility] | | | and [place] | + + + | Organization | [facility] | | [...] Team Providers + +------+ + | Care Hr Internship Name | Role | Phone | + [...] Medication Refill | | 2017 | | [facility] | D, CHIEF SECURITY AND SAFETY OFFICER ONE | | | | | [address] | [facility] [place] | | | | | [facility], [place] | [place] [address] | | | | | [address] | [phone] | | | | | [phone] | | | +--------+ + + + [...]
--- OUTSIDE RECORDS SUMMARY | ~2019-09-01 | XMS | Encounter Summary ---
Demographics + + + | Address | [address] | | | [place] [address] | + + + | Home Phone | | + + + | Preferred Language | Unknown | + + + | Marital Status | | + + + | Mu-Ism Affiliation | Unknown | + + + | Race | Unknown | + + + | Ethnic Group | Unknown | + + + Author + + + | Author | [facility] | | | and [place] | + + + | Organization | [facility] | | [...] Team Providers + +------+ + | Care Special Procedures Nurse Name | Role | Phone | [...] Medication Refill | | 2019 | | [facility] | [place] [address] | | | | | PRIMARY CARE [address] | [facility], | | | | | [facility], | [place] [address] | | | | | [place] [address] | [phone] | | | | | [phone] | | | +--------+--------+ + + + [...]
--- OUTSIDE RECORDS SUMMARY | ~2019-09-01 | XMS | Encounter Summary ---
Demographics + + + | Address | [address] | | | [place] [address] | + + + | Home Phone | | + + + | Preferred Language | Unknown | + + + | Marital Status | | + + + | Confucianist Affiliation | Unknown | + + + | Race | Unknown | + + + | Ethnic Group | Unknown | + + + Author + + + | Author | [facility] | | | and [place] | + + + | Organization | [facility] | [...] Team Providers + +------+ + | Care Offal Baler Name | Role | Phone | + [...] | +--------+ + + + + | 01/15/ | Telephone | [place] | Aric Palmer | Other | | 2018 | | [facility] | [place] | | | | | PRIMARY CARE [address] | [place], | | | | | [facility], | [place] [address] | | | | | [place] [address] | [phone] | | | | | [phone] | | | +--------+ + + + [...]
--- OUTSIDE RECORDS SUMMARY | ~2019-09-01 | XMS | Encounter Summary ---
Demographics + + + | Address | [address] | | | [place] [address] | + + + | Home Phone | | + + + | Preferred Language | Unknown | + + + | Marital Status | | + + + | Confucianism Affiliation | Unknown | + + + | Race | Unknown | + + + | Ethnic Group | Unknown | + + + Author + + + | Author | [facility] | | | and [place] | + + + | Organization | [facility] | | [...] Team Providers + +------+ + | Care Compliance Manager Name | Role | Phone [...] | Results | | 2018 | | [facility] | D, STEAM POWER PLANT OPERATOR ONE | | | | | PRIMARY CARE [address] | [facility] | | | | | [facility], | [place], [place] [address] | | | | | [place] [address] | [phone] | | | | | [phone] | | | +--------+ + + + [...]
--- OUTSIDE RECORDS SUMMARY | ~2019-09-01 | XMS | Encounter Summary ---
Demographics + + + | Address | [address] | | | [place] [address] | + + + | Home Phone [...] + | Author | [facility] | | | and [place] | + + + | Organization | [facility] | | | [...] Team Providers + +------+ + | Care Cardiac Cath Lab Technologist Name | Role | Phone | + [...] + + | 11/07/ | Refill | [place] [facility] | Nate Rodríguezher | Medication Refill | | 2018 | | [facility] | D, WELDER METAL FAB ONE | | | | | PRIMARY CARE [address] | [facility] | | | | | [facility], | [place] [address] | | | | | [place] [address] | [phone] | | | | | [phone] | | | +--------+--------+ + + + [...]
--- OUTSIDE RECORDS SUMMARY | ~2019-09-01 | XMS | Encounter Summary ---
Demographics + + + | Address | [address] | | | [place] [address] | + + + | Home Phone [...] | [facility] | | | and [place] | + + + | Organization | [facility] | | | and [place] [...] Team Providers + +------+ + | Care Status Controller Name | Role | Phone | + [...] | PRIMARY CARE [address] | [place] [employer], | | | | | [place], | [place] [address] | | | | | [place] [address] | [phone] | | | | | [phone] | | | +--------+ + + + [...] Harmon - 01/01/2019 1:57 PM PDTReceived by MD [id number] signed by Carrol Harmon at 01/23/2019 8:15 AM Rosalia Agarwal - 01/01/2019 1:57 PM PDTHydroco done 5-325 mg qty 120 Hydrocodone 5-325 mg qty 120 Hydrocodone 5-325 mg qty 120 Hydrocodone 5-325 mg qty 120 Hydrocodone 5-325 mg qty 120 Certified mailed [address] [place] [address] Tracking # [id number] signed by Rosalia Harmon at 01/01/2019 2:03 PM PDTdoc umented in this encounter Plan of Treatment Not on filedocumented as of this encounter Visit Diagnoses Not on filedocumented in this encounter"
--- OUTSIDE RECORDS SUMMARY | ~2019-09-01 | XMS | Encounter Summary ---
Demographics + + + | Address | [address] | | | [place] [address] | + + + | Home Phone [...] | Author | [facility] | | | and [place] | + + + | Organization | [facility] | [...] Team Providers + +------+ + | Care Medicine Worker Name | Role | Phone | [...] + + | 05/11/ | Telephone | [place] [facility] | Faith Rodríguez | Lab Results | | 2018 | | [facility] | D, ATTORNEY ONE | | | | | PRIMARY CARE [address] | [facility] | | | | | [facility]TH [facility], [place] | [place] [address] | | | | | [address] | [phone] | | | | | [phone] | | | +--------+ + + + [...]
--- OUTSIDE RECORDS SUMMARY | ~2019-09-01 | XMS | Encounter Summary ---
Demographics + + + | Address | [address] | | | [place] [address] | + + + | Home Phone | | + + + | Preferred Language | Unknown | + + + | Marital Status | | + + + | Islam Affiliation | Unknown | + + + | Race | Unknown | + + + | Ethnic Group | Unknown | + + + Author + + + | Author | [facility] | | | and [place] | + + + | Organization | [facility] [...] Team Providers + +------+ + | Care Beauty Parlor Cleaner Name | Role | Phone | + [...] RN | myocardial | | | | [place], | | infarction | | | | [place] [address] | | | | | | [phone] | | | +--------+ + + + [...]
--- OUTSIDE RECORDS SUMMARY | ~2019-09-01 | XMS | Encounter Summary ---
Demographics + + + | Address | [address] | | | [place] [address] | + + + | Home Phone | | + + + | Preferred Language | Unknown | + + + | Marital Status | | + + + | Christian Affiliation | Unknown | + + + | Race | Unknown | + + + | Ethnic Group | Unknown | + + + Author + + + | Author | [facility] | | | and [place] | + + + | Organization | [facility] | | [...] Team Providers + +------+ + | Care Disability Services Coordinator Name | Role | Phone | + [...] Medication Refill | | 2019 | | [facility] | [address] | | | | | PRIMARY CARE [address] | [facility], | | | | | [facility], | [place] [address] | | | | | [place] [address] | [phone] | | | | | [phone] | | | +--------+--------+ + + + [...]
--- OUTSIDE RECORDS SUMMARY | ~2019-09-01 | XMS | Encounter Summary ---
Demographics + + + | Address | [address] | | | [place] [address] | + + + | Home Phone [...] [facility] | | | and [place] | + + + | Organization | [facility] | | | [...] Team Providers + +------+ + | Care Orthotic Assistant Name | Role | Phone | [...] Essential | | 2017 | Visit | [facility] | D, COATER ONE | hypertension | | | | PRIMARY CARE [address] | [facility] [place] | (Primary Dx); | | | | [facility], | [place] [address] | Pulmonary nodules; | | | | [place] [address] | [phone] | Panlobular emphysema | | | | [phone] | | ([facility]) | +--------+---------+ + + + Social History [...] DO NOT drive yourself. DO NOT have [facility] person drive you to the hospital. You may be having a heart attack, and you should be in the care of Medics who will safely bring you to the hospital. Copyright [employer]. All rights reserved. Heart Disease Education The [...] You will often be evaluated by a certified legal secretary specialist (c ardiologist) who decides the best course of action. In the case of severe angina or early he art attack, and depending on the circumstances, powerful "clot busting" medicines can be use d to dissolve blood clots in the coronary artery. In other cases, you may be taken to a [facility] catheterization lab. Here,a tiny balloon-tipped [...] doses in your wallet. Date Last Reviewed: 10/21/201519995167-5910 [employer]. [address] [place] [address], [place] [address]. All righ ts reserved. This information is [...] since his cardiac tests indicate an old UT , and with his heart failure and [...] to cut down. Subjective: He saw a general surgery physician assistant, Dr. Jcarlos Stringer on 09/19 for evaluation [...] also told that he had a silent UT in May when we thought he might have had a TIA. He will be seeshaquille larson a road passenger firer in September tollow up on his old UT and recent echo results will be faxed t o him as well. We discussed his echo results which indicate left atrial enlargement and an ejection fraction of 35% as well as diastolic dysfunction. Reports his mother also had a s ilent UT at age 75 when receiving chemo for her lung cancer, and she had a partial left lobe ctomy due to lung cancer from supposed secondhand smoke exposure as she was not a smoker at age 72. His sister also had an UT at age 35 when she quit producing platelets. He is seeing the road passenger firer on the 12th in [place], and he is going to see the pulmon ologist in two weeks as well. 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 He has cut down his cigarette use to a pack a day, he has lost three pounds since o ur last visit. States he used to have chest pain in his 50's and he went in to an ER in [facility] at that time due to chest pain [...] had nitroglycerin tabs when he lived in [place]. He states he did ok with these, [...]
--- OUTSIDE RECORDS SUMMARY | ~2019-09-01 | XMS | Encounter Summary ---
Demographics + + + | Address | [address] | | | [place] [address] | + + + | Home Phone [...] + | Author | [facility] | | | and [place] | + + + | Organization | [facility] | | | and [...] Team Providers + +------+ + | Care School Attendance Secretary Name | Role | Phone | + +------+ + PCP | Unavailable | + +------+ + Encounter Details +--------+ + + + + | Date | Type | Department | Care Team | Description | +--------+ + + + + | 05/01/ | [facility] | [place] | Carlos Callejas | | | 2016 | Encounter | HOSPITAL EMERGENCY | MD [address] | | | | | [address] | [facility] | | | | | DR [place] | [place] [address] | | | | | [address] | [phone] | | | | | [phone] | | | +--------+ + + + [...] finding. 2. Severe emphysematous change. JOB #: [id number] | | | Digitally Released by: Faye [...] | | | | | JOB #: [id number] | | Digitally Released by: Faye Quintero [...] No abnormal intracranial enhancement is seen. No [place] | | | aneurysm is [...] | | with microvascular disease. JOB #: [id number] Digitally Released | | | by: Faye [...] No abnormal intracranial enhancement is seen. No [place] aneurysm is | | demonstrated. [...] | | | | | JOB #: [id number] | | Digitally Released by: Faye Quintero | | | | | | Read By: FAYE QUINTERO MD | | Date: 05/01/2017 14:27 | | | + + documented in this encounter Visit Diagnoses Not on filedocumented in this encounter"
--- OUTSIDE RECORDS SUMMARY | ~2019-09-01 | XMS | Encounter Summary ---
Demographics + + + | Address | [address] | | | [place] [address] | + + + | Home Phone [...] + + | Author | [facility] | | | and [place] | + + + | Organization | [facility] | | | and [...] Team Providers + +------+ + | Care Wellness Program Administrator Name | Role | Phone | + +------+ + PCP | Unavailable | + +------+ + Encounter Details +--------+ + + + + | Date | Type | Department | Care Team | Description | +--------+ + + + + | 06/19/ | Hospital | [place] | Faith Rodríguez | | | 2016 | Encounter | [facility] | D, MEAT INSPECTOR ONE | | | | | [address] [place] | [facility] [place] | | | | | [place] | [place] [address] | | | | | [address] | [phone] | | | | | [phone] | | | +--------+ + + + [...]
--- OUTSIDE RECORDS SUMMARY | ~2019-09-01 | XMS | Encounter Summary ---
Demographics + + + | Address | [address] | | | [place] [address] | + + + | Home Phone | | + + + | Preferred Language | Unknown | + + + | Marital Status | | + + + | Taoism Affiliation | Unknown | + + + | Race | Unknown | + + + | Ethnic Group | Unknown | + + + Author + + + | Author | [facility] | | | and [place] | + + + | Organization | [facility] | | | and [...] Team Providers + +------+ + | Care Pigment Supplier Name | Role | Phone | + [...] | +--------+ + + + + | 01/10/ | Telephone | [place] [facility] | SpencerAric chapman | Medication Question | | 2019 | | [facility] | [address]TY [address] | | | | | PRIMARY CARE [address] | [facility], | | | | | [facility], | [place] [address] | | | | | [place] [address] | [phone] | | | | | [phone] | | | +--------+ + + + [...]
--- OUTSIDE RECORDS SUMMARY | ~2019-09-01 | XMS | Encounter Summary ---
Demographics + + + | Address | [address] | | | [place] [address] | + + + | Home Phone [...] | Author | [facility] | | | and [place] | + + + | Organization | [facility] | [...] Team Providers + +------+ + | Care Prize Jacker Name | Role | Phone | + +------+ + | Faith Rodríguez GROCERY CASHIER | PCP | | + +------+ + Encounter Details +--------+ + + + + | Date | Type | Department | Care Team | Description | +--------+ + + + + | 07/24/ | [facility] | [place] | Faith Rodríguez | | | 2017 | Encounter | [facility] | D, KEN ONE | | | | | PRIMARY CARE [address] | [facility] | | | | | [facility], | [place] [address] | | | | | [place] [address] | [phone] | | | | | [phone] | | | +--------+ + + + [...]
--- OUTSIDE RECORDS SUMMARY | ~2019-09-01 | XMS | Encounter Summary ---
Demographics + + + | Address | [address] | | | [place] [address] | + + + | Home Phone [...] Author | [facility] | | | and [place] | + + + | Organization | [facility] | | [...] Team Providers + +------+ + | Care Strip Picker Name | Role | Phone | + +------+ + | Faith Rodríguez STABLE ATTENDANT | PCP | | + +------+ + Encounter Details +--------+ + + + + | Date | Type | Department | Care Team | Description | +--------+ + + + + | 07/24/ | [facility] | [place] [facility] | Faith Rodríguez | | | 2017 | Encounter | [facility] | D, KEN ONE | | | | | PRIMARY CARE [address] | [facility] | | | | | J[facility], | [place] [address] | | | | | [place] [address] | [phone] | | | | | [phone] | | | +--------+ + + + [...]
--- OUTSIDE RECORDS SUMMARY | ~2019-09-01 | XMS | Encounter Summary ---
Demographics + + + | Address | [address] | | | [place] [address] | + + + | Home Phone [...] | Author | [facility] | | | and [place] | + + + | Organization | [facility] | | [...] Team Providers + +------+ + | Care Child Care Coordinator Name | Role | Phone | + +------+ + | Aric Palmer | PCP | | | LETTY | | | + +------+ + Encounter Details +--------+ + + + + | Date | Type | Department | Care Team | Description | +--------+ + + + + | 02/13/ | Documentati | [place] [facility] | Aric Palmer | | | 2019 | on | [facility] | [place] | | | | | PRIMARY CARE [address] | [place] [employer], | | | | | [place], | [place] [address] | | | | | [place] [address] | [phone] | | | | | [phone] | | | +--------+ + + + [...] this encounter Progress Notes Rosalia Harmon - 02/13/2019 12:55 PM PDTReceived 02-20-19 by Higinio Doran Rosalia Agarwal - 02/13/2019 12:55 PM PDTGab apentin 300 mg qty 810 Cyclobenzaprine 10 mg qty 270 Hydrocodone 5-325 qty 120 Hydrocodone 5-325 qty 120 Hydrocodone 5-325 qty 120 Mailed to [facility] [address] [place] [address] Dr POZO [address] [place] [address] Tracking # [id number] signed by Rosalia Harmon at 02/13/2019 12:59 PM PDTdoc umented in this encounter Plan of Treatment Not on filedocumented as of this encounter Visit Diagnoses Not on filedocumented in this encounter"
--- OUTSIDE RECORDS SUMMARY | ~2019-09-01 | XMS | Encounter Summary ---
Demographics + + + | Address | [address] | | | [place] [address] | + + + | Home Phone [...] | Author | [facility] | | | and [place] | + + + | Organization | [facility] | [...] Providers + +------+ + | Care Drain Tile Press Operator Name | Role | Phone | [...] | | | | [place] | [facility] [place] | | | | | [place], [place] | [place] [address] | | | | | [address] | [phone] | | | | | [phone] | | | +--------+ + + + [...] | | | consult recommended. JOB #: [id number] Digitally Released by: | | | Faye [...] | | | | | JOB #: [id number] | | Digitally Released by: Faye Quintero | | | | | | Read By: FAYE QUINTERO MD | | Date: 07/31/2017 14:06 | | | + + documented in this encounter Visit Diagnoses Not on filedocumented in this encounter"
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
--- OUTSIDE RECORDS SUMMARY | ~2019-09-01 | XMS | Encounter Summary ---
Demographics + + + | Address | [address] | | | [place] [address] | + + + | Home Phone [...] | Author | [facility] | | | and [place] | + + + | Organization | [facility] | | [...] Team Providers + +------+ + | Care Dealmaker Name | Role | Phone | + [...] | PRIMARY CARE [address] | [place] [employer], | | | | | [place], | [place] [address] | | | | | [place] [address] | [phone] | | | | | [phone] | | | +--------+ + + + [...] 120 Hydrocodone 5-325 [address]ty [address] [facility] [address] [place] [address] Dr POZO [address] [place] [id number] Tracking # [id number] signed by Rosalia Harmon at 02/13/2019 12:59 PM PDTdoc umented in this encounter Plan of Treatment Not on filedocumented as of this encounter Visit Diagnoses Not on filedocumented in this encounter"
--- OUTSIDE RECORDS SUMMARY | ~2019-09-01 | XMS | Encounter Summary ---
Demographics + + + | Address | [address] | | | [place] [address] | + + + | Home Phone | | + + + | Preferred Language | Unknown | + + + | Marital Status | | + + + | Mormon Affiliation | Unknown | + + + | Race | Unknown | + + + | Ethnic Group | Unknown | + + + Author + + + | Author | [facility] | | | and [place] | + + + | Organization | [facility] | | [...] Team Providers + +------+ + | Care Attorney Name | Role | Phone | + +------+ + | Faith Rodríguez NP | PCP | | + +------+ + Encounter Details +--------+ + + + + | Date | Type | Department | Care Team | Description | +--------+ + + + + | 11/20/ | Documentati | [place] [facility] | Candy Iglesias, | | | 2018 | on | [facility] | RN | | | | | PRIMARY CARE [address] | | | | | | [facility], | | | | | | [place] [address] | | | | | | [phone] | | | +--------+ + + + [...]
--- OUTSIDE RECORDS SUMMARY | ~2019-09-01 | XMS | Encounter Summary ---
Demographics + + + | Address | [address] | | | [place] [address] | + + + | Home Phone | | + + + | Preferred Language | Unknown | + + + | Marital Status | | + + + | Christianity Affiliation | Unknown | + + + | Race | Unknown | + + + | Ethnic Group | Unknown | + + + Author + + + | Author | [facility] | | | and [place] | + + + | Organization | [facility] | | | and [...] Team Providers + +------+ + | Care Painter Drum Name | Role | Phone | + +------+ + | Aric Palmer | PCP | | | LETTY | | | + +------+ + Reason for Visit + + + | Reason | Comments | + + + | Provide Resources | GAVINW assistance with snf care facility | + + + Encounter Details +--------+ + + + + | Date | Type | Department | Care Team | Description | +--------+ + + + + | 01/24/ | Telephone | [place] [facility] | Estrellita Brasher | Provide Resources | | 2019 | | [facility] | MONY Palmer [address] | (W assistance with | | | | PRIMARY CARE [address] [place] | snf care | | | | [facility] | [place] [address] | facility) | | | | [place] [address] | [phone] | | | | | [phone] | | | +--------+ + + + [...]
--- OUTSIDE RECORDS SUMMARY | ~2019-09-01 | XMS | Encounter Summary ---
Demographics + + + | Address | [address] | | | [place] [address] | + + + | Home Phone | | + + + | Preferred Language | Unknown | + + + | Marital Status | | + + + | Cheondoism Affiliation | Unknown | + + + | Race | Unknown | + + + | Ethnic Group | Unknown | + + + Author + + + | Author | [facility] | | | and [place] | + + + | Organization | [facility] | [...] Team Providers + +------+ + | Care Printer Slotter Helper Name | Role | Phone | [...] | PRIMARY CARE [address] | [place] [employer], | | | | | [place] [employer], | [place] [address] | | | | | [place] [address] | [phone] | | | | | [phone] | | | +--------+ + + + [...]
--- OUTSIDE RECORDS SUMMARY | ~2019-09-01 | XMS | Encounter Summary ---
Demographics + + + | Address | [address] | | | [place] [address] | + + + | Home Phone [...] | Author | [facility] | | | and [place] | + + + | Organization | [facility] | | | [...] Team Providers + +------+ + | Care Panel Maker Name | Role | Phone | [...] | | stress | [place], [place] | [address] | | | | | | [address] | Phone: | | | | | | Phone: | [phone] | | | | | | [phone] | Fax: | | | | | | Fax: | [phone] | | | | | | [phone] | | +--------+ + + + + [...] | | [address] [place], | [place] [address] | | | | | [place] [address] | [phone] | | | | | [phone] | | | +--------+ + + + [...]
--- OUTSIDE RECORDS SUMMARY | ~2019-09-01 | XMS | Encounter Summary ---
Demographics + + + | Address | [address] | | | [place] [address] | + + + | Home Phone [...] Author | [facility] | | | and Escobarana | + + + | Organization | [facility] | | [...] Team Providers + +------+ + | Care Tube Worker Name | Role | Phone | + +------+ + | Faith Rodríguez IGNITION EXPERT | PCP | | + +------+ + Encounter Details +--------+ + + + + | Date | Type | Department | Care Team | Description | +--------+ + + + + | 02/27/ | Documentati | [place] [facility] | Faith Rodríguez | | | 2018 | on | [facility] | D, IGNITION EXPERT ONE | | | | | PRIMARY CARE [address] | [facility] | | | | | [facility], | [place] [address] | | | | | [place] [address] | [phone] | | | | | [phone] | | | +--------+ + + + [...] this encounter Progress Notes Rosalia Harmon - 02/27/2018 5:24 PM PDTReceived 03-05-18 by Doran Hydrocodone 5-325 qty 112 Certified Mail [address] [place] [address] Tracking number [id number] documented in this enco unter Plan of Treatment Not on filedocumented as of this encounter Visit Diagnoses Not on filedocumented in this encounter"
--- OUTSIDE RECORDS SUMMARY | ~2019-09-01 | XMS | Encounter Summary ---
Demographics + + + | Address | [address] | | | [place] [address] | + + + | Home Phone [...] | Author | [facility] | | | and Escobarana | + + + | Organization | [facility] | | | and [...] Team Providers + +------+ + | Care Surveyor Instrument Assistant Name | Role | Phone | [...] | | [facility], | [place] [address] | | | | | [place] [address] | [phone] | | | | | [phone] | | | +--------+ + + + [...]
--- OUTSIDE RECORDS SUMMARY | ~2019-09-01 | XMS | Encounter Summary ---
Demographics + + + | Address | [address] | | | [place] [address] | + + + | Home Phone [...] | [facility] | | | and Escobarana | + + + | Organization | [facility] [...] Team Providers + +------+ + | Care Appliance Adjuster Name | Role | Phone | + +------+ + | Faith Rodríguez TEACHING AIDE | PCP | | + +------+ + [...] artery | MD Brendan | [address] | | | | | disease, | [address] | [place], | | | | | angina | St [place] | [place] | | | | | presence | [place] | [address] | | | | | unspecified, | [address] | Phone: | | | | | unspecified | Phone: | [phone] | | | | | vessel or | [phone] | Fax: | | | | | lesion type, | Fax: | [phone] | | | | | unspecified | [phone] | | | | | | whether | | | | | | | council or | | | | | | [...] | | | | | | STUDIES [place] | | | | | | | CV STRS TST | | | | | | | XERS&/OR RX | | | | | | | CONT ECG W/O | | | | | | | I&R [place] | | | | | | | [...] embolism and | 78 | [address] | | | | | thrombosis | [place] | [place], | | | | | Encounter | Drive [place] | [place] | | | | | for other | [place], [place] | [address] | | | | | preprocedura | [address] | Phone: | | | | | l | Phone: | [phone] | | | | | examination | [phone] | Fax: | | | | | Procedures | Fax: | [phone] | | | | | TEACHING AIDE | [phone] | | +--------+--------+ + + + + Encounter Details +--------+---------+ + + + | Date | Type | Department | Care Team | Description | +--------+---------+ + + + | 10/12/ | Office | [facility] | Deangelo Macias | Abdominal aortic | | 2017 | Visit | CARDIOLOGY [address] | MD Brendan [address] | aneurysm (AAA) | | | | [address] [place], | [address] [place] | without rupture | | | | [place] [address] | [place] [address] | (HCC) (Primary Dx); | | | | [phone] | [phone] | Essential | | | | | [...] whether | | | | | | council or | | | | | | [...] stress test Where to go for labs: [facility]- [address] [facility] Myoview Date: Check-in Time: Where to [...] of heart failure, severe emphysema, prior anteroseptal MD and strokes, heavy tobacco use, abdominal aortic [...] very good historian. He also admits to Gueydan of alcohol use. MEDICAL, SURGICAL, AND PERSONAL [...] and describes history of allergy/intolerance. I will higginbotham ve him start on clopidogrel 75 mg [...] made to ensure accuracy; however, inadvertent computerized sports physiotherapist errors may be pre sent. Electronically signed by: Kya Macias MD PhD [facility] 10/12/2017 documented in t his encounter [...] 46%. Signed by: Kya Macias MD PhD [facility] | | | 01/02/2018, 14:05 | [...] MD | | | | | | ([id number]) on 10/12/2017 | | | | | [...] or lesion | | type, unspecified whether council or transplanted heart | + + | Congestive heart failure, unspecified congestive heart failure chronicity, unspecified | | congestive heart failure type | + + | Tobacco use disorder | + + documented in this encounter
--- OUTSIDE RECORDS SUMMARY | ~2019-09-01 | XMS | Encounter Summary ---
Demographics + + + | Address | [address] | | | [place] [address] | + + + | Home Phone [...] Collaborative [facility] | | | and Escobarana | + + + | Organization | [facility] [...] Team Providers + +------+ + | Care Electron Microscopist Name | Role | Phone | + +------+ + | Aric Palmer | PCP | | | PA-Terry | | | + +------+ + Reason for Visit +--------+ + | Reason | Comments | +--------+ + | Other | FOLLOW UP APPOINTMENT | +--------+ + Encounter Details +--------+ + + + + | Date | Type | Department | Care Team | Description | +--------+ + + + + | 05/27/ | Telephone | [facility] [place] | Pepitolavelle Deangelo | Other (FOLLOW UP | | 2019 | | VINCENT [address] | MD Brendan [address] | APPOINTMENT) | | | | [place], | [address] [place] | | | | | [place] [address] | [place] [address] | | | | | [phone] | [phone] | | | | | | | [...]
--- OUTSIDE RECORDS SUMMARY | ~2019-09-01 | XMS | Encounter Summary ---
Demographics + + + | Address | [address] | | | [place] [address] | + + + | Home Phone [...] | Author | [facility] | | | and Escobarana | + + + | Organization | [facility] [...] Team Providers + +------+ + | Care End Trimmer Name | Role | Phone | [...] management | | 2019 | Visit | [facility] | LETTY [address] | (Primary Dx); | | | | PRIMARY CARE [address] | [facility], | Pulmonary nodules; | | | | [facility], | [place] [address] | Tobacco use; Chronic | | | | [place] [address] | [phone] | midline low back | | | | [phone] | | pain with bilateral | | [...] Chronic low back pain Multi-level degeneration. Continue [place] 5/325 2 tabs BID through [facility]. 3 prescriptions of #120 provided today. [...] 2 g po qhs Rx sent to [facility] Hypertension Decrease Lisinopril to 20 mg from [...] current chronic pain management plan consists of [place] 5/3/25 2 tablets twice a day, Flex eril 10 mg up to 3 times a day, and gabapentin 900 mg 3 times a day. A review of Saturnino's ur inary drug screens show that he is consistent with his prescribed opioid medication. He rec eives his medications from the [facility]. Saturnino continues to smoke cigarettes and is [...] & Cleansers Swelling Rash/swelling Uncoded Nonscreenable Allergen [place], patient states he gets red spots and [...] Diagnostics | | | | | | [facility] | | | | | [...] | | | | [facility] | | | | | | Kathia Pastor M.D., | | | | | | Ph.D., Laboratory | | | | | | Director [id number] | | | | | | [facility] | | | | | | [place] [address] | | | | | | OBINNA #[id number] | | | | + + + + + + + + | Specimen | + + | Urine | + + + + + + + | Performing | Address | City/State/Zipcode | Phone Number | | Organization | | | | + + + + + | REFERENCE LAB | [address] [facility] | [place] | | | [facility] - | | [address] | | | [place] | | [...] | | | | | | - [place] | | | | | | [place] [...] By: | | | | | | [facility] | | | | | | [place]ne [place] | | | | | | Kathia Pastor M.D., | | | | | | Ph.D., Laboratory | | | | | | Director [id number] | | | | | | [facility] | | | | | | [place] [address] | | | | | | CLIA #[id number] | | | | + + + + + + + + | Specimen | + + | Urine | + + + + + + + | Performing | Address | City/State/[facility] | Phone Number | | Organization | | | | + + + + + | REFERENCE LAB | [id number] [place] [address] | [place], [place] | | | [facility] - | | [address] | | | [place] | | [...]
--- OUTSIDE RECORDS SUMMARY | ~2019-09-01 | XMS | Encounter Summary ---
Demographics + + + | Address | [address] | | | [place] [address] | + + + | Home Phone [...] Author | [facility] | | | and Escobarana | + + + | Organization | [facility] | | [...] Team Providers + +------+ + | Care Avian Keeper Name | Role | Phone | + +------+ + | Faith Rodríguez NP | PCP | | + +------+ + Encounter Details +--------+ + + + + | Date | Type | Department | Care Team | Description | +--------+ + + + + | 08/09/ | Imaging | [facility] | Héctor, | | | 2016 | Exam | [facility] | MD Te[address] | | | | | IMAGING | [place] | | | | | [phone] | [place] [address] | | +--------+ + + + + [...] this | | BIOPSY | e | 7:50 AM | | procedure are in the | | | | PDT | | results section. | + +--------+ + + + documented in this encounter Results US Guided Thyroid Biopsy (05/30/2017 7:50 AM PDT) + + | Specimen | + + | | + + + + + | Narrative | Performed At | + + + | External films | [facility] | | for comparison only - no result from [place]. | | + + + + +---------+ + + | Performing | Address | City/State/Zipcode | Phone Number | | Organization | | | | + +---------+ + + | [facility] | | | | + +---------+ + + documented in this encounter Visit Diagnoses Not on filedocumented in this encounter"
--- OUTSIDE RECORDS SUMMARY | ~2019-09-01 | XMS | Encounter Summary ---
Demographics + + + | Address | [address] | | | [place] [address] | + + + | Home Phone [...] | Author | [facility] | | | and Escobarana | + + + | Organization | [facility] | | | and [place] [...] Team Providers + +------+ + | Care Tentering Machine Off Bearer Name | Role | Phone | + +------+ + PCP | Unavailable | + +------+ + Encounter Details +--------+ + + + + | Date | Type | Department | Care Team | Description | +--------+ + + + + | 04/20/ | Hospital | [place] [facility] | Faith Rodríguez | | | 2016 | Encounter | HOSPITAL XRAY [address] | D, PROCESS PLANNER ONE | | | | | [place] | [facility] | | | | | [place] | [place] [address] | | | | | [address] | [phone] | | | | | [phone] | | | +--------+ + + + [...] | No acute finding identified. JOB #: [id number] Digitally Released | | | by: Faye [...] | | | | | JOB #: [id number] | | Digitally Released by: Faye Quintero | | | | | | Read By: FAYE QUINTERO MD | | Date: 04/20/2017 10:53 | | | + + documented in this encounter Visit Diagnoses Not on filedocumented in this encounter"
--- OUTSIDE RECORDS SUMMARY | ~2019-09-01 | XMS | Encounter Summary ---
Demographics + + + | Address | [address] | | | [place] [address] | + + + | Home Phone [...] | Author | [facility] | | | and Escobarana | + + + | Organization | [facility] | [...] Team Providers + +------+ + | Care Accounting System Expert Name | Role | Phone | + [...] medication | | 2018 | Visit | [facility] | D, COMPUTER APPLICATIONS INSTRUCTOR ONE | agreement (Primary | | | | PRIMARY CARE [address] | [facility] [place] | Dx); Abnormal | | | | [facility] [place], | [place] [address] | positron emission | | | | [place] [address] | [phone] | tomography (PET) | | | | [phone] | | scan of head; Other | [...] weight on the joint Date Last Reviewed: 12/21/201619991894-3844 [employer]. [address] [place] [address], [place] [address]. All righ ts reserved. This information is [...] you are not leaning toward the st [employer] wheel. A small pillow or rolled towel [...] in the groin area Date Last Reviewed: 03/23/201619991267-1520 [employer]. [address] [place] [address], [place] [id number]. All righ ts reserved. This information is not intended as a substitute for professional medical care. Always follow your healthcare professional's instructions. documented in this encounter Progress Notes Faith Rodríguez NP - 11/13/2017 1:00 PM PST APSO PROGRESS NOTE Pt. Name/Age/: Saturnino Avila 72 y.o. 1945 Med. Record Number: [id number] Assessment and Plan: 1. Pain medication agreement Pain contract signed, reviewed contract in detail. Pt has been on Cross for many years for severe back pain [...] days/q 3 months Follow-up with PCP or COMPUTER APPLICATIONS INSTRUCTOR monthly for then every 3 months 1. [...] fairly clear. He will be going to [place] on January 02, 2018, for cardiac stress [...] Material Risk Notice Narcotic Controlled Substances - [place] 'Intractable pain' means that you have a [...] get refills of medicine(s) from: [facility] [address] [address] Goals and Alternatives Your goals from therapy are to reduce your pain to a level that will allow you to do the fo llowing: Alternatives or additions to this therapy are: Acupuncture Massage Physical Therapy Pain Classes Yoga Counseling TENS Unit TERMS OF AGREEMENT There are certain rules that apply to patients receiving opioid medications for chronic hans n conditions from [facility]. If I prescribe these medications for you, [...] provider or covering doctor 48 hours in [facility] and during business hours. I [...] be reliably predicted. 8. TOLERANCE - with intermediate card tender use, an increased amount of the same [...] of your provider or a [facility]. 10. ADDICTION (ABUSE) - This [...] the preferred imaging location? Answer: [place] [facility] Electronically signed by: Faith Rodríguez, 11/14/2017 18:15 No results found for this or any previous visit (from the past 24 hour(s)). Entered by VIRGINIA Patel, acting as scribe for SANDER Mitchell. The documentatio n recorded by the [...]
--- OUTSIDE RECORDS SUMMARY | ~2019-09-01 | XMS | Encounter Summary ---
Demographics + + + | Address | [address] | | | [place] [address] | + + + | Home Phone [...] Author | [facility] | | | and Escobarana | + + + | Organization | [facility] | | [...] Team Providers + +------+ + | Care Crime Scene Technician Name | Role | Phone | [...] | | PRIMARY CARE [address] | [facility], | | | | | [facility], | [place] [address] | | | | | [place] [address] | [phone] | | | | | [phone] | | | +--------+ + + + [...]
--- OUTSIDE RECORDS SUMMARY | ~2019-09-01 | XMS | Encounter Summary ---
Demographics + + + | Address | [address] | | | [place] [address] | + + + | Home Phone | | + + + | Preferred Language | Unknown | + + + | Marital Status | | + + + | Sikhism Affiliation | Unknown | + + + | Race | Unknown | + + + | Ethnic Group | Unknown | + + + Author + + + | Author | [facility] | | | and Escobarana | + + + | Organization | [facility] | [...] Team Providers + +------+ + | Care Pomologist Name | Role | Phone | + [...] Gastroesophageal | | 2019 | Visit | [facility] | Antonina, AGPCNP-C [address] | reflux disease, | | | | PRIMARY CARE [address] | [address] | esophagitis presence | | | | [facility], | [place] [address] | not specified | | | | [place] [address] | [phone] | (Primary Dx); | | | | [phone] | | Essential | | | | | | hypertension; | | | | | | Panlobular emphysema | | | | | | ([facility]); Moderate | | | | | | protein-calorie | | | | | | malnutrition ([facility]) | +--------+---------+ + + + [...] people, acid reflux is troubling but not gacria erous. But left untreated, acid reflux sometimes [...] your stomach empty better. Date Last Reviewed: 07/23/201619997683-1748 The [employer]. [address] [place] [address], [place] [address]. All righ ts reserved. This information is [...] 2212. Patient declines diuretic. Patient has seen time buyer Dr. Little in the past, over a year ago. Declines referral for follow-up with time buyer 3. Panlobular emphysema (HCC) Assessment & Plan: [...] Patient presents with Gastroesophageal Reflux Patient in [place] clinic today for refill of omeprazole. New [...]
--- OUTSIDE RECORDS SUMMARY | ~2019-09-01 | XMS | Encounter Summary ---
Demographics + + + | Address | [address] | | | [place] [address] | + + + | Home Phone [...] Author | [facility] | | | and Escobarana | + + + | Organization | [facility] | [...] Team Providers + +------+ + | Care Airport Traffic Controller Name | Role | Phone | [...] | Referral | | 2017 | | [facility] | D, STRINGING MACHINE TENDER ONE | (PreAuthorization) | | | | PRIMARY CARE [address] | [facility] | | | | | [facility], | [place], [place] [address] | | | | | [place] [address] | [phone] | | | | | [phone] | | | +--------+ + + + [...]
--- OUTSIDE RECORDS SUMMARY | ~2019-09-01 | XMS | Encounter Summary ---
Demographics + + + | Address | [address] | | | [place] [address] | + + + | Home Phone | | + + + | Preferred Language | Unknown | + + + | Marital Status | | + + + | Caodaism Affiliation | Unknown | + + + | Race | Unknown | + + + | Ethnic Group | Unknown | + + + Author + + + | Author | [facility] | | | and Escobarana | + + + | Organization | [facility] | [...] Providers + +------+ + | Care Carpenter Helper [employer] Flooring Name | Role | Phone | + [...] W | APPOINTMENT) | | | | [place], | [address] [place] | | | | | [place] [address] | [place] [address] | | | | | [phone] | [phone] | | | | | | | [...]
--- OUTSIDE RECORDS SUMMARY | ~2019-09-01 | XMS | Encounter Summary ---
Demographics + + + | Address | [address] | | | [place] [address] | + + + | Home Phone [...] | Author | [facility] | | | and Escobarana | + + + | Organization | [facility] [...] Team Providers + +------+ + | Care Erecting Engineer Name | Role | Phone | [...] Patient Concerns | | 2017 | | [facility] | D, ENTRY LEVEL PROGRAMMER ONE | | | | | PRIMARY CARE [address] | [facility] | | | | | [facility] [place], | [place] [address] | | | | | [place] [address] | [phone] | | | | | [phone] | | | +--------+ + + + [...]
--- OUTSIDE RECORDS SUMMARY | ~2019-09-01 | XMS | Encounter Summary ---
Demographics + + + | Address | [address] | | | [place] [address] | + + + | Home Phone [...] Author | [facility] | | | and Escobarana | + + + | Organization | [facility] | | [...] Team Providers + +------+ + | Care Procurement Engineer Name | Role | Phone | + +------+ + | Faith Rodríguez EXCAVATING CONTRACTOR | PCP | | + +------+ + Encounter Details +--------+ + + + + | Date | Type | Department | Care Team | Description | +--------+ + + + + | 11/21/ | Orders Only | [place] [facility] | Faith Rodríguez | Pre-procedure lab | | 2018 | | [facility] | D, EXCAVATING CONTRACTOR ONE | exam (Primary Dx) | | | | PRIMARY CARE [address] | [facility] [place] | | | | | [facility], | [place] [address] | | | | | [place] [address] | [phone] | | | | | [phone] | | | +--------+ + + + [...] | mL/min/1.73m2 | [facility] | | | [facility] [facility] | [facility] | | | [...] + + | [place] [facility] | [address] | [place] [address] | [phone] | | HOSPITAL LABORATORY | | | | + + + + + documented in this encounter Visit Diagnoses + + | Diagnosis | + + | Pre-procedure lab exam - Primary Pre-procedural laboratory examination | + + documented in this encounter"
--- OUTSIDE RECORDS SUMMARY | ~2019-09-01 | XMS | Encounter Summary ---
Demographics + + + | Address | [address] | | | [place] [address] | + + + | Home Phone [...] Author | [facility] | | | and [place]obarana | + + + | Organization | [facility] | | | and [...] Team Providers + +------+ + | Care Fitness Trainer Name | Role | Phone | + +------+ + PCP | Unavailable | + +------+ + Encounter Details +--------+ + + + + | Date | Type | Department | Care Team | Description | +--------+ + + + + | 07/08/ | Hospital | [place] [facility] | Jacklyn [place] | | | 2014 | Encounter | HOSPITAL XRAY [address] | MD [address] | | | | | [place] | [address] | | | | | [place] | [place] [address] | | | | | [address] | [phone] | | | | | [phone] | | | +--------+ + + + [...] D: | | | 07/08/2015 Job No.: [id number] Read By: DORYS HAMM MD | | [...] aorta status post surgical intervention. Job No.: [id number] Read By: DORYS | | Yoni HAMM [...] | | | | | |Job No.: [id number] | | | |Read By: DORYS HAMM MD | | | |Released By: DORYS HAMM MD | |Date: 07/09/2015 13:10 | | | | | + + documented in this encounter Visit Diagnoses Not on filedocumented in this encounter"
--- OUTSIDE RECORDS SUMMARY | ~2019-09-01 | XMS | Encounter Summary ---
Demographics + + + | Address | [address] | | | [place] [address] | + + + | Home Phone [...] | [facility] | | | and Escobarana | + + + | Organization | [facility] | | | and [...] Team Providers + +------+ + | Care Regional Coordinator Name | Role | Phone | + +------+ + PCP | Unavailable | + +------+ + Encounter Details +--------+ + + + + | Date | Type | Department | Care Team | Description | +--------+ + + + + | 05/11/ | Hospital | [place] | Faith Rodríguez | | | 2016 | Encounter | HOSPITAL RESPIRATORY | D, SHOE SALESMAN ONE | | | | | THERAPY [address] | [facility] [place] | | | | | [address] [place] | [place] [address] | | | | | [address] | [phone] | | | | | [phone] | | | +--------+ + + + [...]
--- OUTSIDE RECORDS SUMMARY | ~2019-09-01 | XMS | Encounter Summary ---
Demographics + + + | Address | [address] | | | [place] [address] | + + + | Home Phone [...] | [facility] | | | and Escobarana | + + + | Organization | [facility] | [...] Team Providers + +------+ + | Care Nut Tapper Name | Role | Phone | + +------+ + | Faith Rodríguez PATIENT FLOW COORDINATOR | PCP | | + +------+ + [...] artery | MD Brendan | [address] | | | | | disease, | [address] | [place], | | | | | angina | St [place] | [place] | | | | | presence | [place], [place] | [address] | | | | | unspecified, | [address] | Phone: | | | | | unspecified | Phone: | [phone] | | | | | vessel or | [phone] | Fax: | | | | | lesion type, | Fax: | [phone] | | | | | unspecified | [phone] | | | | | | whether | | | | | | | [place] or | | | | | | [...] | | | | | | STUDIES AR | | | | | | | CV STRS TST | | | | | | | XERS&/OR RX | | | | | | | CONT ECG W/O | | | | | | | I&R AR | | | | | | | [...] + + | 01/02/ | Hospital | [facility] | Deangelo Little | | | 2018 | Encounter | MED CTR NUCLEAR | MD Brendan [address] | | | | | MEDICINE [address] [place] | | | | | [place], | [place] [address] | | | | | [place] [address] | [phone] | | | | | [phone] | | | +--------+ + + + [...] whether | | | | | | [place] or | | | | | | [...]
--- OUTSIDE RECORDS SUMMARY | ~2019-09-01 | XMS | Encounter Summary ---
Demographics + + + | Address | [address] | | | [place] [address] | + + + | Home Phone [...] Author | [facility] | | | and [place] | + + + | Organization | [facility] | | | and [place] [...] Team Providers + +------+ + | Care Fireperson Name | Role | Phone | + +------+ + | Faith Rodríguez STUDENT SERVICES VICE PRESIDENT | PCP | | + +------+ + Reason for Referral Diagnostic/Screening (Routine) +--------+--------+ + + + + | Status | Reason | Specialty | Diagnoses / | Referred By | Referred To | | | | | Procedures | Contact | Contact | +--------+--------+ + + + + | Closed | | Radiology | Diagnoses | Anne | Rosalva Wguriel Mri | | | | | Abnormal | Faith Palmer, | [address] | | | | | PET scan of | STUDENT SERVICES VICE PRESIDENT ONE | DR [address] | | | | | head | [facility] | [facility], [place] | | | | | Procedures | [place] | [address] | | | | | MRI Neck | [place], [place] | Phone: | | | | | Soft Tissue | [address] | [phone] | | | | | Only w wo | Phone: | Fax: | | | | | Contrast | [phone] | [phone] | | | | | | Fax: | | | | | | | [phone] | | +--------+--------+ + + + + Encounter Details +--------+ + + + + | Date | Type | Department | Care Team | Description | +--------+ + + + + | 11/16/ | Orders Only | [place] [facility] | Faith Rodríguez | Abnormal PET scan of | | 2018 | | [facility] | D, STUDENT SERVICES VICE PRESIDENT ONE | head (Primary Dx) | | | | PRIMARY CARE [address] | [facility] [place] | | | | | JET [place], | [place] [address] | | | | | [place] [address] | [phone] | | | | | [phone] | | | +--------+ + + + [...] on filedocumented as of this encounter Results MRI Neck Soft Tissue Only w wo Contrast (11/27/2017 2:04 PM PST) + + | Specimen | + + | | + + + + + | Impressions | Performed At | + + + | IMPRESSION: 1. No focal right pterygoid muscle abnormality is | [facility] | | visualized. 2. Paranasal sinus mucosal thickening. This has | | | increased compared to October 09, 2017. 3. Multilevel degenerative | | | change of the cervical spine. Dictated by: Juan Miguel Haider | | | | | + + + + + + | Narrative | Performed At | + + + | EXAMINATION: MRI NECK SOFT TISSUE ONLY W WO CONTRAST HISTORY: | [facility] | | hypermetabolic focus of right pterygoid muscle on PET scan | | | COMPARISON STUDY: October 09, 2017, May 09, 2017 TECHNIQUE: | | | Multiplanar multisequence MRI of the soft tissues of the neck was | | | performed without with contrast. 6 mL Gadavist was injected | | | intravenously without post contrast reaction. FINDINGS: Lung | | | apices are clear. Aortic arch is normal in caliber. Thyroid gland is | | | is noted to have a nonenhancing heterogeneous cystic structure | | | posteriorly on the right, consistent with May 09, 2017 ultrasound | | | findings.. Major flow voids are present. The medial and lateral | | | pterygoid muscles are homogeneous in appearance bilaterally. No | | | focal mass lesion. No abnormal enhancement is seen on postcontrast | | | weighted images. Other muscles of mastication are normal in | | | appearance. Visualized brain parenchyma is unremarkable. | | | Circumferential thickening of the maxillary sinuses. Small disc | | | bulges noted at C4-C5 and C5-C6. More moderate disc bulge is present | | | at C6-C7. Moderate central stenosis. Normal cord signal | | | intensity. No prevertebral soft tissue swelling. Aerodigestive tract | | | is patent. | | + + + + + | Procedure Note | + + | Ezio Quiros Results In - 11/27/2017 3:11 PM PST EXAMINATION:MRI NECK SOFT TISSUE ONLY W | | WO CONTRASTHISTORY:hypermetabolic focus of right pterygoid muscle on PET scanCOMPARISON | | STUDY:October 09, 2017, May 09, 2017TECHNIQUE:Multiplanar multisequence MRI of the | | soft tissues of the neck was performed without with contrast. 6 mL Gadavist was | | injected intravenously without post contrast reaction.FINDINGS:Lung apices are | | clear.Aortic arch is normal in caliber.Thyroid gland is is noted to have a nonenhancing | | heterogeneous cystic structure posteriorly on the right, consistent with May 09, 2017 | | ultrasound findings..Major flow voids are present.The medial and lateral pterygoid | | muscles are homogeneous in appearance bilaterally. No focal mass lesion. No abnormal | | enhancement is seen on postcontrast weighted images. Other muscles of mastication are | | normal in appearance.Visualized brain parenchyma is unremarkable.Circumferential | | thickening of the maxillary sinuses.Small disc bulges noted at C4-C5 and C5-C6. More | | moderate disc bulge is present at C6-C7. Moderate central stenosis. Normal cord signal | | intensity.No prevertebral soft tissue swelling.Aerodigestive tract is | | patent.IMPRESSION: IMPRESSION:1. No focal right pterygoid muscle abnormality is | | visualized.2. Paranasal sinus mucosal thickening. This has increased compared to | | October 09, 2017.3. Multilevel degenerative change of the cervical spine.Dictated by: | | Juan Miguel Solizam | |Visualized brain parenchyma is unremarkable. | |Circumferential thickening of the maxillary sinuses. | |Small disc bulges noted at C4-C5 and C5-C6. More moderate disc bulge is present at C6-C7. Moderate central stenosis. Normal cord signal intensity. | |No prevertebral soft tissue swelling. | |Aerodigestive tract is patent. | | | |IMPRESSION: | |IMPRESSION: | |1. No focal right pterygoid muscle abnormality is visualized. | |2. Paranasal sinus mucosal thickening. This has increased compared to October 09, 2017. | |3. Multilevel degenerative change of the cervical spine. | | | |Dictated by: Juan Miguel [...] + | Diagnosis | + + | Abnormal PET scan of head - Primary Nonspecific (abnormal) findings on radiological | | and other examination of skull and head | + + documented in this encounter"
--- OUTSIDE RECORDS SUMMARY | ~2019-09-01 | XMS | Encounter Summary ---
Demographics + + + | Address | [address] | | | [place] [address] | + + + | Home Phone [...] Author | [facility] | | | and [place] | + + + | Organization | [facility] | | [...] Team Providers + +------+ + | Care Claims Coordinator Name | Role | Phone | [...] [place], [place] | | | | | [address] | [address] | | | | | [phone] | [phone] | | | | | | | [...] is | | | recommended. JOB #: [id number] Digitally Released by: Vitaly | | | [...] | | | | | JOB #: [id number] | | Digitally Released by: Juan Miguel Hamm | | | | | | Read By: JUAN MIGUEL HAMM MD | | Date: 04/29/2017 09:41 | | | + + documented in this encounter Visit Diagnoses Not on filedocumented in this encounter"
--- OUTSIDE RECORDS SUMMARY | ~2019-09-01 | XMS | Encounter Summary ---
Demographics + + + | Address | [address] | | | [place] [address] | + + + | Home Phone [...] | Author | [facility] | | | and [place] | + + + | Organization | [facility] | | | and [...] Team Providers + +------+ + | Care Doll Surgeon Name | Role | Phone | + [...] | Other | | 2017 | | [facility] | D, PASSENGER BRAKEMAN ONE | | | | | PRIMARY CARE [address] | [facility] | | | | | JET [facility], | [place] [address] | | | | | [place] [address] | [phone] | | | | | [phone] | | | +--------+ + + + [...]
--- OUTSIDE RECORDS SUMMARY | ~2019-09-01 | XMS | Encounter Summary ---
Demographics + + + | Address | [address] | | | [place] [address] | + + + | Home Phone [...] | Author | [facility] | | | and [place] | + + + | Organization | [facility] | | | and [...] Team Providers + +------+ + | Care Well Treatment Offsider Name | Role | Phone | + +------+ + | Faith Rodríguez EVENTS TRAFFIC CONTROLLER | PCP | | + +------+ + [...] | | | Old | Jcarlos | [facility] | | | | | anteroseptal | MD Nitin | IMAGING [address] | | | | | myocardial | [address] | [place] | | | | | infarction | [place] | [place] | | | | | Procedures | [place], | [address] | | | | | ECHO | [place] [address] | Phone: | | | | | Complete CT | Phone: | [phone] | | | | | ECHO HEART | [phone] | Fax: | | | | | [place] | Fax: | [phone] | | | | | [address] | [phone] | | | | | | DOPPLER CT | | | | | | | [...] | | | Pulmonary | Jcarlos | [facility] | | | | | nodules | MD Nitin | IMAGING [address] | | | | | Tobacco | [address] | | | | | dependence | [place] | [place], [place] | | | | | Procedures | [place], | [address] | | | | | PET CT Skull | [place] [address] | Phone: | | | | | Base To Mid | Phone: | [phone] | | | | | Thigh | [phone] | Fax: | | | | | | Fax: | [phone] | | | | | | [phone] | | +--------+--------+ + + + + [...] | | | | | obstructive | EVENTS TRAFFIC CONTROLLER ONE | MD Nitin | | | | | pulmonary | [place] | [address] [place] [address] | | | | | disease, | [address] [place] | [place] | | | | | unspecified | [place], [place] | [place], [place] | | | | | (HCC) Other | [address] | [address] Phone: | | | | | disorders | Phone: | [phone] | | | | | of lung | [phone] | Fax: | | | | | Procedures | Fax: | [phone] | | | | | OUT PT VISIT | [phone] | | | | | | NEW [...] | (Primary Dx); | | | | [place], | [address] [place] | Centrilobular | | | | [place] [address] | [place] [address] | emphysema (HCC); | | | | [phone] | [phone] | Chronic obstructive | | | | [...]
--- OUTSIDE RECORDS SUMMARY | ~2019-09-01 | XMS | Encounter Summary ---
Demographics + + + | Address | [address] | | | [place] [address] | + + + | Home Phone [...] | Author | [facility] | | | and [place] | + + + | Organization | [facility] [...] Team Providers + +------+ + | Care Automation Driver Name | Role | Phone | + +------+ + PCP | Unavailable | + +------+ + Encounter Details +--------+ + + + + | Date | Type | Department | Care Team | Description | +--------+ + + + + | 06/13/ | [facility] | [place] | Faith Rodríguez | | | 2017 | Encounter | [facility] | D, CHIEF OPERATOR SYNTHESIS ONE | | | | | PRIMARY CARE [address] | [facility] | | | | | JET [facility], | [place] [address] | | | | | [place] [address] | [phone] | | | | | [phone] | | | +--------+ + + + [...]
--- OUTSIDE RECORDS SUMMARY | ~2019-09-01 | XMS | Encounter Summary ---
Demographics + + + | Address | [address] | | | [place] [address] | + + + | Home Phone [...] + | Author | [facility] | | | and [place] | + + + | Organization | [facility] | | | [...] Providers + +------+ + | Care General Practice Name | Role | Phone | + [...] Medication Refill | | 2019 | | [facility] | LETTY [address] | | | | | PRIMARY CARE [address] | JET [facility] [place], | | | | | JET [facility] [place], | [place] [address] | | | | | [place] [address] | [phone] | | | | | [phone] | | | +--------+--------+ + + + [...]
--- OUTSIDE RECORDS SUMMARY | ~2019-09-01 | XMS | Encounter Summary ---
Demographics + + + | Address | [address] | | | [place] [address] | + + + | Home Phone [...] Team Providers + +------+ + | Care Blackener Name | Role | Phone | + [...] | | | THERAPY [address] | [facility] [place] | | | | | DR [place], [place] | [place] [address] | | | | | [address] | [phone] | | | | | [phone] | | | +--------+ + + + [...]
--- OUTSIDE RECORDS SUMMARY | ~2019-09-01 | XMS | Encounter Summary ---
Demographics + + + | Address | [address] | | | [place] [address] | + + + | Home Phone [...] | Author | [facility] | | | and [place] | + + + | Organization | [facility] | | [...] Team Providers + +------+ + | Care Account Collector Name | Role | Phone | + [...] [address] | | | | | [facility] [place] [facility], | [address] [place] [place] | | | | | [place] [address] | [place] [address] | | | | | [phone] | [phone] | | | | | | | [...]
--- OUTSIDE RECORDS SUMMARY | ~2019-09-01 | XMS | Encounter Summary ---
Demographics + + + | Address | [address] | | | [place] [address] | + + + | Home Phone [...] Author | [facility] | | | and [place] | + + + | Organization | [facility] | | | [...] Team Providers + +------+ + | Care Gill Net Stringer Name | Role | Phone | + [...] | | | | | | | [address] | | +--------+--------+ + + + + Encounter Details +--------+ + + + + | Date | Type | Department | Care Team | Description | +--------+ + + + + | 08/09/ | Imaging | [facility] | Provider, | | | 2017 | Exam | MED CTR EXTERNAL | MD Teod[address] | | | | | IMAGING | [place] | | | | | [phone] | [place] [address] | | +--------+ + + + + [...]
--- OUTSIDE RECORDS SUMMARY | ~2019-09-01 | XMS | Encounter Summary ---
Demographics + + + | Address | [address] | | | [place] [address] | + + + | Home Phone [...] + | Author | [facility] | | | and [place] | + + + | Organization | [facility] | [...] Team Providers + +------+ + | Care Integrated Circuit Fabricator Name | Role | Phone | [...] Medication Refill | | 2017 | | [facility] | D, LOG RAFTER ONE | | | | | PRIMARY CARE [address] | [facility] | | | | | JET [facility], | [place] [address] | | | | | [place] [address] | [phone] | | | | | [phone] | | | +--------+ + + + [...]
--- OUTSIDE RECORDS SUMMARY | ~2019-09-01 | XMS | Encounter Summary ---
Demographics + + + | Address | [address] | | | [place] [address] | + + + | Home Phone [...] | Author | [facility] | | | and [place] | + + + | Organization | [facility] [...] Team Providers + +------+ + | Care Underground Roof Bolter Name | Role | Phone | + +------+ + | Faith Rodríguez STABLE MANAGER | PCP | | + +------+ + Encounter Details +--------+ + + + + | Date | Type | Department | Care Team | Description | +--------+ + + + + | 02/27/ | Documentati | [place] [facility] | Faith Rodríguez | | | 2018 | on | [facility] | D, STABLE MANAGER ONE | | | | | PRIMARY CARE [address] | [facility] | | | | | [facility], | [place] [address] | | | | | [place] [address] | [phone] | | | | | [phone] | | | +--------+ + + + [...] Doran Hydrocodone 5-325 qty 112 Certified Mail [address] [place] [address] Tracking number [id number] documented in this enco unter Plan of Treatment Not on filedocumented as of this encounter Visit Diagnoses Not on filedocumented in this encounter"
--- OUTSIDE RECORDS SUMMARY | ~2019-09-01 | XMS | Encounter Summary ---
Demographics + + + | Address | [address] | | | [place] [address] | + + + | Home Phone [...] | [facility] | | | and [place] | + + + | Organization | [facility] | | [...] Team Providers + +------+ + | Care Photo Printer Name | Role | Phone | + [...] | PRIMARY CARE [address] | JET [employer], | | | | | JET [employer], | [place] [address] | | | | | [place] [address] | [phone] | | | | | [phone] | | | +--------+ + + + [...]
--- OUTSIDE RECORDS SUMMARY | ~2019-09-01 | XMS | Encounter Summary ---
Demographics + + + | Address | [address] | | | [place] [address] | + + + | Home Phone [...] | Author | [facility] | | | and [place] | + + + | Organization | [facility] | [...] Team Providers + +------+ + | Care Lathe Set Up Person Name | Role | Phone | + +------+ + | Faith Rordíguez SAND SCREENER OPERATOR | PCP | | + +------+ [...] artery | MD Brendan | [address] | | | | | disease, | [address] | [place], | | | | | angina | St [place] | [place] | | | | | presence | [place], [place] | [address] | | | | | unspecified, | [address] | Phone: | | | | | unspecified | Phone: | [phone] | | | | | vessel or | [phone] | Fax: | | | | | lesion type, | Fax: | [phone] | | | | | unspecified | [phone] | | | | | | whether | | | | | | | eek or | | | | | | [...] | | | | | | STUDIES OR | | | | | | | CV STRS TST | | | | | | | XERS&/OR RX | | | | | | | CONT ECG W/O | | | | | | | I&R [place] | | | | | | | [...] artery | MD Brendan | [address] | | | | | disease, | [address] | [place], | | | | | angina | St [place] | [place] | | | | | presence | [place], [place] | [address] | | | | | unspecified, | [address] | Phone: | | | | | unspecified | Phone: | [phone] | | | | | vessel or | [phone] | Fax: | | | | | lesion type, | Fax: | [phone] | | | | | unspecified | [phone] | | | | | | whether | | | | | | | eek or | | | | | | [...] | | | | | | STUDIES OR | | | | | | | CV STRS TST | | | | | | | XERS&/OR RX | | | | | | | CONT ECG W/O | | | | | | | I&R [place] | | | | | | | [...] + + | 01/02/ | Hospital | [facility] | Deangelo Little | Coronary artery | | 2018 | Encounter | MED CTR NUCLEAR | MD Brendan [address] | disease, angina | | | | MEDICINE [address] | [address] [place] | presence | | | | [place], | [place] [address] | unspecified, | | | | [place] [address] | [phone] | unspecified vessel | | | | [phone] | | or lesion type, | | | | | Wardrobe Supervisor, [facility] | unspecified whether | | | | | | eek or | | | | | | [...] | | | | | type ([facility]) | | | | | [...] whether | | | | | | eek or | | | | | | [...] 46%. Signed by: Kya Little MD PhD [facility] | | | 01/02/2018, 14:05 | | [...] or lesion | | type, unspecified whether eek or transplanted heart | + + | [...] PDT | | | | | Starting [facility] 01/02/18 at 0923, For | | [...] | | | | | | Starting [facility] 01/02/18 at 0923, For | | | | | | | 1 dose, Nuclear Medicine | | | | | | + +-------+ + +---+---+ +---+---+ | | | +---+---+ documented in this encounter"
--- OUTSIDE RECORDS SUMMARY | ~2019-09-01 | XMS | Encounter Summary ---
Demographics + + + | Address | [address] | | | [place] [address] | + + + | Home Phone | | + + + | Preferred Language | Unknown | + + + | Marital Status | | + + + | Muslim Affiliation | Unknown | + + + | Race | Unknown | + + + | Ethnic Group | Unknown | + + + Author + + + | Author | [facility] | | | and [place] | + + + | Organization | [facility] | | | [...] Team Providers + +------+ + | Care Sofa Inspector Name | Role | Phone | [...] RN | myocardial | | | | [place], | | infarction | | | | [place] [address] | | | | | | [phone] | | | +--------+ + + + [...]
--- OUTSIDE RECORDS SUMMARY | ~2019-09-01 | XMS | Encounter Summary ---
Demographics + + + | Address | [address] | | | [place] [address] | + + + | Home Phone [...] + | Author | [facility] | | | and [place] | + + + | Organization | [facility] | | [...] Team Providers + +------+ + | Care Benefits Director Name | Role | Phone | + +------+ + | Faith Rodríguez BOOK OR SCRIPT EDITOR | PCP | | + +------+ + Encounter Details +--------+ + + + + | Date | Type | Department | Care Team | Description | +--------+ + + + + | 03/14/ | Abstract | [place] [facility] | Faith Rodríguez | Dermatitis; | | 2017 | | [facility] | D, BOOK OR SCRIPT EDITOR ONE | Insomnia, | | | | PRIMARY CARE [address] | [facility] [place] | unspecified type; | | | | JET [facility], | [place] [address] | Ventral hernia | | | | [place] [address] | [phone] | without obstruction | | | | [phone] | | or gangrene; | | | [...]
--- OUTSIDE RECORDS SUMMARY | ~2019-09-01 | XMS | Encounter Summary ---
Demographics + + + | Address | [address] | | | [place] [address] | + + + | Home Phone [...] Author | [facility] | | | and Escobarana | + + + | Organization | [facility] | | | and [...] Team Providers + +------+ + | Care Roll Plugger Name | Role | Phone | + [...] | | 2018 | Visit | [facility] | TRACK INSPECTING SUPERVISOR [address] | failure, unspecified | | | | PRIMARY CARE [address] | [place] [address] | HF chronicity, | | | | [facility], | [phone] | unspecified heart | | | | [place] [address] | | failure type (HCC) | | | | [phone] | | (Primary Dx); | | | [...] Avila 73 y.o. 1945 Med. Record Number: [id number] Assessment and Plan: 73-year-old male presents for follow-up exam. Patient has no changes from prior visit. No te from recent visit with coil machine supervisor reviewed. No changes from prior treatment plan. Tomás fagan continue to be monitored with medication management with yearly follow-up. Patient is fol lowed by the CA and will continue to receive all routine [...] fair amount of alcohol use.ntly seen by coil machine supervisor and follow-up. Patient is followed by the CA. 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 | [place] | | | [facility] - | | [address] | | | [facility] | | [...] | [facility] | | | | [facility] | | HOSPITAL | | | | [...] + + | [place] [facility] | [address] | [place] [address] | [phone] | | HOSPITAL LABORATORY | | | [...] | mL/min/1.73m2 | [facility] | | | [place] | RATE,ESTIMATED | | HOSPITAL | | | | mL/min/1.47k2Lmse than | | LABORATORY | | | [...] + + | [place] [facility] | [address] | [place] [address] | [phone] | | HOSPITAL LABORATORY | | | [...] + + | [place] [facility] | [address] | [place] [address] | [phone] | | HOSPITAL LABORATORY | | | [...] + + | [place] [facility] | [address] | [place] [address] | [phone] | | HOSPITAL LABORATORY | | | [...] + + | [place] [facility] | [address] | [place] [address] | [phone] | | HOSPITAL LABORATORY | | | [...] + + | [place] [facility] | [address] | [place] [address] | [phone] | | HOSPITAL LABORATORY | | | [...]
--- OUTSIDE RECORDS SUMMARY | ~2019-09-01 | XMS | Encounter Summary ---
Demographics + + + | Address | [address] | | | [place] [address] | + + + | Home Phone [...] | Author | [facility] | | | and Escobarana | + + + | Organization | [facility] | [...] Team Providers + +------+ + | Care Preparation Center Coordinator Name | Role | Phone | + +------+ + | Faith Rodríguez VOICE STUDIES DIRECTOR | PCP | | + +------+ + [...] | | | | | multiple | VOICE STUDIES DIRECTOR ONE | | | | | | pulmonary | UNIVERSITY | | | | | | nodules | [place]VD [place] | | | | | | Procedures | [place] | | | | | | CT Chest w | [address] | | | | | | Contrast | Phone: | | | | | | | [phone] | | | | | | | Fax: | | | | | | | [phone] | | + +--------+ + + + [...] | | | | tient Visit | [address] | | | | | New | ZAK ALLISON | [place] | | | | | Office/Outpa | BLDG 69 RM | [place] | | | | | tient visit | [address] [facility] | [address] Phone: | | | | | Est Prev | [place], [place] | [phone] | | | | | Visit New | [address] | Fax: | | | | | Age 18-39 | Phone: | [phone] | | | | | Pre Visit | [phone] | | | | | | New Age | Fax: | | | | | | 40-64 | [phone] | | +--------+--------+ + + + + Encounter Details +--------+---------+ + + + | Date | Type | Department | Care Team | Description | +--------+---------+ + + + | 03/13/ | Office | [place] [facility] | Faith Rodríguez | Pain management | | 2018 | Visit | [facility] | KEN Palmer ONE | contract agreement | | | | PRIMARY CARE [address] | [facility] [place] | (Primary Dx); Other | | | | [address], | [place] [address] | osteoarthritis of | | | | [place] [address] | [phone] | spine, lumbar | | | | [phone] | | region; H/O multiple | | [...] 1:00 PM PDT1. 3-month prescription f or Lenore will be sent. 2. Other medications refilled [...] month and mailed by certified mail to [facility]. Other osteoarthritis of spine, lumbar region - Hydrocodone-Acetaminophen; Take 2 tablets by mouth 2 times daily for 28 days. Please ship medication via [employer] to: Saturnino Avila [address] [place], [place] [address] Dispense: 120 tablet; Refill: 0 - Hydrocodone-Acetaminophen; [...] it. He had run out of his Lenore due to [facility] I will need to post date his Lenore for 3 months at a time and send the prescriptions via certified mail. He requests that we make a note on the prescript ion to have it mailed via [employer] to his PO box. He is telling me that April 12 or , I will need to fill out more paperwork from [facility] to continue being his provider. However, he [...] USPS to: Saturnino Avila [address] [place], [place] [address] 120 tablet 0 HYDROcodone-acetaminophen (NORCO) 5-325 mg [...] by mouth nightly. Take 2 tablets at [facility] ht 30 tablet No current facility-administered [...] made to ensure accuracy. However, inadvertent computerized school traffic supervisor errors may be pre sent. documented in [...]
--- OUTSIDE RECORDS SUMMARY | ~2019-09-01 | XMS | Encounter Summary ---
Demographics + + + | Address | [address] | | | [place] [address] | + + + | Home Phone [...] | Author | [facility] | | | and Escobarana | + + + | Organization | [facility] | | [...] Team Providers + +------+ + | Care Change Person Name | Role | Phone | + +------+ + | Faith Rodríguez EXECUTIVE COACH | PCP | | + +------+ + [...] | | | PET scan of | EXECUTIVE COACH ONE | DR DAUGHERTY | | | | | head | UNIVERSITY | [facility], [place] | | | | | Procedures | [place]VD [place] | [address] | | | | | MRI Neck | [place], [place] | Phone: | | | | | Soft Tissue | [address] | [phone] | | | | | Only w wo | Phone: | Fax: | | | | | Contrast | [phone] | [phone] | | | | | | Fax: | | | | | | | [phone] | | +--------+--------+ + + + + Encounter Details +--------+ + + + + | Date | Type | Department | Care Team | Description | +--------+ + + + + | 11/16/ | Orders Only | [place] [facility] | Faith Rodríguez | Abnormal PET scan of | | 2018 | | [facility] | D, EXECUTIVE COACH ONE | head (Primary Dx) | | | | PRIMARY CARE [address] | [facility] [place] | | | | | [place], | [place] [address] | | | | | [place] [address] | [phone] | | | | | [phone] | | | +--------+ + + + [...]
--- OUTSIDE RECORDS SUMMARY | ~2019-09-01 | XMS | Encounter Summary ---
Demographics + + + | Address | [address] | | | [place] [address] | + + + | Home Phone [...] | Author | [facility] | | | and Escobarana | + + + | Organization | [facility] | | [...] Team Providers + +------+ + | Care Furnace Filler Name | Role | Phone | + [...] | PRIMARY CARE [address] | J[place] [employer], | | | | | [place] [employer], | [place] [address] | | | | | [place] [address] | [phone] | | | | | [phone] | | | +--------+ + + + [...]
--- OUTSIDE RECORDS SUMMARY | ~2019-09-01 | XMS | Encounter Summary ---
Demographics + + + | Address | [address] | | | [place] [address] | + + + | Home Phone [...] | Author | [facility] | | | and Escobarana | + + + | Organization | [facility] | | | and [...] Team Providers + +------+ + | Care House Mover Name | Role | Phone | + +------+ + PCP | Unavailable | + +------+ + Encounter Details +--------+ + + + + | Date | Type | Department | Care Team | Description | +--------+ + + + + | 05/09/ | Hospital | [place] [facility] | Faith Rodríguez | | | 2017 | Encounter | HOSPITAL INFUSION | D, IMPORTER EXPORTER ONE | | | | | [address] | [facility] | | | | | [place] | [place] [address] | | | | | [address] | [phone] | | | | | [phone] | | | +--------+ + + + [...]
--- OUTSIDE RECORDS SUMMARY | ~2019-09-01 | XMS | Encounter Summary ---
Demographics + + + | Address | [address] | | | [place] [address] | + + + | Home Phone | | + + + | Preferred Language | Unknown | + + + | Marital Status | | + + + | Sabianism Affiliation | Unknown | + + + | Race | Unknown | + + + | Ethnic Group | Unknown | + + + Author + + + | Author | [facility] | | | and Escobarana | + + + | Organization | [facility] | | | and [...] Team Providers + +------+ + | Care Sprinkling System Installer Name | Role | Phone | + +------+ + PCP | Unavailable | + +------+ + Encounter Details +--------+ + + + + | Date | Type | Department | Care Team | Description | +--------+ + + + + | 05/11/ | Hospital | [place] [facility] | Faith Rodríguez | | | 2016 | Encounter | HOSPITAL RESPIRATORY | D, BENCH TOOL MAKER ONE | | | | | THERAPY [address] | [facility] [place] | | | | | [place] | [place] [address] | | | | | [address] | [phone] | | | | | [phone] | | | +--------+ + + + [...]
--- OUTSIDE RECORDS SUMMARY | ~2019-09-01 | XMS | Encounter Summary ---
Demographics + + + | Address | [address] | | | [place] [address] | + + + | Home Phone [...] | Author | [facility] | | | and Escobarana | + + + | Organization | [facility] [...] Team Providers + +------+ + | Care Dungeon Master Name | Role | Phone | + +------+ + | Aric Palmer | PCP | | | LETTY | | | + +------+ + Encounter Details +--------+ + + + + | Date | Type | Department | Care Team | Description | +--------+ + + + + | 06/27/ | Documentati | [place] [facility] | Aric Palmer | | | 2019 | on | [facility] | LETTY [address] | | | | | PRIMARY CARE [address] | JET [employer], | | | | | [place] [employer], | [place] [address] | | | | | [place] [address] | [phone] | | | | | [phone] | | | +--------+ + + + [...]
--- OUTSIDE RECORDS SUMMARY | ~2019-09-01 | XMS | Encounter Summary ---
Demographics + + + | Address | [address] | | | [place] [address] | + + + | Home Phone [...] | Author | [facility] | | | and Escobarana | + + + | Organization | [facility] | | | and [...] Team Providers + +------+ + | Care Grounds Restoration Specialist Name | Role | Phone | + +------+ + PCP | Unavailable | + +------+ + Encounter Details +--------+ + + + + | Date | Type | Department | Care Team | Description | +--------+ + + + + | 05/30/ | Hospital | [place] [facility] | Faith Rodríguez | | | 2017 | Encounter | HOSPITAL XRAY [address] | D, FACTORY EXPERT ONE | | | | | SHANE [address]UGH[address] | [facility] [place] | | | | | [place] | [place] [address] | | | | | [address] | [phone] | | | | | [phone] | | | +--------+ + + + [...] thyroid | | | biopsy. JOB #: [id number] Digitally Released by: Faye Quintero | | [...] | | | | | JOB #: [id number] | | Digitally Released by: Faye Quintero | | | | | | Read By: FAYE QUINTERO MD | | Date: 05/30/2017 08:43 | | | + + documented in this encounter Visit Diagnoses Not on filedocumented in this encounter"
--- OUTSIDE RECORDS SUMMARY | ~2019-09-01 | XMS | Encounter Summary ---
Demographics + + + | Address | [address] | | | [place] [address] | + + + | Home Phone | | + + + | Preferred Language | Unknown | + + + | Marital Status | | + + + | Holiness Affiliation | Unknown | + + + | Race | Unknown | + + + | Ethnic Group | Unknown | + + + Author + + + | Author | [facility] | | | and Escobarana | + + + | Organization | [facility] | | [...] Providers + +------+ + | Care Cardiology Consultant Name | Role | Phone | [...] Medication Refill | | 2018 | | [facility] | D, MANAGER MEAT ONE | | | | | PRIMARY CARE [address] | [facility] | | | | | [facility], | [place] [address] | | | | | [place] [address] | [phone] | | | | | [phone] | | | +--------+--------+ + + + [...]
--- OUTSIDE RECORDS SUMMARY | ~2019-09-01 | XMS | Clinical Summary ---
Demographics + + + | Address | [address] | | | [place] [address] | + + + | Home Phone [...] | [facility] | | | and Escobarana | + + + | Organization | [facility] | | | and [place] [...] Team Providers + +------+ + | Care Sales Assistants And Salespersons Name | Role | Phone | + [...] | Uncoded | | | 03/22/20 | Delmita, patient | | Nonscreenable | | | [...] | | | | | | type ([facility]) | | | | | | | [...] has recently left the practice. Taking 4-6 Mathews | | daily. Patient wishes to continue pain regimen for her would | | like to increase Mathews from 4-6 daily to better control pain. [...] Last Assessment & Plan: 3 prescriptions of Mathews printed and | | sent to [facility] [...] care plan with David Palmer PA-C at [facility] | | Clinic today. | + + [...] Specialist: | | | | | | [phone] | | | | | | [...] Diagnostics | | | | | | [facility] | | | | | | Maryann. [...] Diagnostics | | | | | | [facility] | | | | | | Kathia Pastor M.D., | | | | | | Ph.D., Laboratory | | | | | | Director [address] | | | | | | [facility] | | | | | | [place] [address] | | | | | | CLIA #[id number] | | | | + + + + + + + + | Specimen | + + | Urine | + + + + + + + | Performing | Address | City/State/Zipcode | Phone Number | | Organization | | | | + + + + + | REFERENCE LAB | [address] [facility] | [place], [place] | | | [facility] - | | [address] | | | [facility] | | [...] - 1.030 | [place] | | | [place] | | | [facility] | | | [...] + + | [place] [facility] | [address] | [place] [address] | [phone] | | HOSPITAL LABORATORY | | | [...] +---------+--------+ | VETERANS ADMIN | VETERA | [id number] | | | | Indemn | | | NS | | 018-Pr | | | ity | | | ADMIN | | esent | | | | | | [place] | | | | | | | | [place] | | | | | | + +--------+ +--------+ +---------+--------+ | VETERANS ADMIN | [place] | [id number] | 09/21/ | | | Indemn | | | CHOICE | | 2014-P | | | ity | | | PC3 | | resent | | | | + +--------+ +--------+ +---------+--------+ | VETERANS ADMIN | [place] | [id number] | 05/23/20 | | | Indemn | | | CHOICE | | 17-Pre | | | ity | | | PC3 | | sent | | | | + +--------+ +--------+ +---------+--------+ | MEDICARE | MEDICA | [id number] | 12/26/19 | [phone] | | Medica [...] Person | Self | [birth year] | [address] | | | al/Fam | | 1945 | [phone] | [place] [address] | | | dominique | | | 7 (Home) | | + +--------+ +--------+ + + | Washington Avila | Person | Self | [birth year] | | [address] | | | al/Fam | | 1945 | [phone] | [place] [address] | | | dominique | | | 7 (Home) | | + +--------+ +--------+ + + Advance Directives + + + + + | Type | Date Recorded | Patient | Explanation | | | | Water Restoration Technician | | + + + + + | Power of | | | | | Health Support Specialist | | | | + + + + + | Advance | 05/08/2019 2:24 | | | | Directive | PM | | | + + + + +
--- OUTSIDE RECORDS SUMMARY | ~2019-09-01 | XMS | Encounter Summary ---
Demographics + + + | Address | [address] | | | [place] [address] | + + + | Home Phone [...] | Author | [facility] | | | and Escobarana | + + + | Organization | [facility] | [...] Team Providers + +------+ + | Care Bronc Buster Name | Role | Phone | + [...] (Request for | | 2018 | | [facility] | D, [facility] [address] | letter stating | | | | PRIMARY CARE [address] | [address] [place] | living conditions) | | | | [facility], | [place], [place] [address] | | | | | [place] [address] | [phone] | | | | | [phone] | | | +--------+ + + + [...]
--- OUTSIDE RECORDS SUMMARY | ~2019-09-01 | XMS | Encounter Summary ---
Demographics + + + | Address | [address] | | | [place] [address] | + + + | Home Phone [...] Author | [facility] | | | and Escobarana | + + + | Organization | [facility] | | [...] Team Providers + +------+ + | Care Circle Saw Operator Name | Role | Phone | [...] | Referral | | 2017 | | [facility] | D, PIE FILLING MIXER ONE | (PreAuthorization) | | | | PRIMARY CARE [address] | [facility] | | | | | [facility], | [place], [place] [address] | | | | | [place] [address] | [phone] | | | | | [phone] | | | +--------+ + + + [...]
--- OUTSIDE RECORDS SUMMARY | ~2019-09-01 | XMS | Encounter Summary ---
Demographics + + + | Address | [address] | | | [place] [address] | + + + | Home Phone [...] Author | [facility] | | | and Escobarana | + + + | Organization | [facility] [...] Team Providers + +------+ + | Care Art Educator Name | Role | Phone | + [...] | PRIMARY CARE [address] | JET [employer], | | | | | [place] [employer], | [place] [address] | | | | | [place] [address] | [phone] | | | | | [phone] | | | +--------+ + + + [...] 120 Hydrocodone 5-325 qty 120 Mailed to [facility] [address] [place] [address] Dr POZO [address] [place] [address] Tracking # [id number] signed by Rosalia Harmon at 02/13/2019 12:59 PM PDTdoc umented in this encounter Plan of Treatment Not on filedocumented as of this encounter Visit Diagnoses Not on filedocumented in this encounter"
--- OUTSIDE RECORDS SUMMARY | ~2019-09-01 | XMS | Encounter Summary ---
Demographics + + + | Address | [address] | | | [place] [address] | + + + | Home Phone [...] | Author | [facility] | | | and Escobarana | + + + | Organization | [facility] [...] Team Providers + +------+ + | Care Garnett Room Worker Name | Role | Phone | + +------+ + | Faith Rodríguez OUTSIDE INDUSTRIAL SALES REPRESENTATIVE | PCP | | + +------+ [...] | | | | | multiple | OUTSIDE INDUSTRIAL SALES REPRESENTATIVE ONE | | | | | | pulmonary | UNIVERSITY | | | | | | nodules | [address]VD [place] | | | | | | Procedures | [place] | | | | | | CT Chest w | [address] | | | | | | Contrast | Phone: | | | | | | | [phone] | | | | | | | Fax: | | | | | | | [phone] | | + +--------+ + + + [...] | | | | tient Visit | [address] | | | | | New | ZAK ALLISON | [place] | | | | | Office/Outpa | [address] | [place] | | | | | tient visit | [address] [facility] | [address] Phone: | | | | | Est Prev | [place], [place] | [phone] | | | | | Visit New | [address] | Fax: | | | | | Age 18-39 | Phone: | [phone] | | | | | Pre Visit | [phone] | | | | | | New Age | Fax: | | | | | | 40-64 | [phone] | | +--------+--------+ + + + + Encounter Details +--------+---------+ + + + | Date | Type | Department | Care Team | Description | +--------+---------+ + + + | 03/13/ | Office | [place] [facility] | Faith Rodríguez | Pain management | | 2018 | Visit | [facility] | KEN Palmer ONE | contract agreement | | | | PRIMARY CARE [address] | [facility] [place] | (Primary Dx); Other | | | | [address], | [place] [address] | osteoarthritis of | | | | [place] [address] | [phone] | spine, lumbar | | | | [phone] | | region; H/O multiple | | [...] 1:00 PM PDT1. 3-month prescription f or [place] will be sent. 2. Other medications refilled [...] month and mailed by certified mail to [facility]. Other osteoarthritis of spine, lumbar region - Hydrocodone-Acetaminophen; Take 2 tablets by mouth 2 times daily for 28 days. Please ship medication via [email or web address] to: Saturnino Avila [address] [place], [place] [address] Dispense: 120 tablet; Refill: 0 - Hydrocodone-Acetaminophen; [...] it. He had run out of his [place] due to a [facility]. I will need to post date his [place] for 3 months at a time and send the prescriptions via certified mail. He requests that we make a note on the prescript ion to have it mailed via [employer] to his PO box. He is telling me that April 12 or , I will need to fill out more paperwork from [facility] to continue being his provider. However, [...] USPS to: Saturnino Avila [address] [place], [place] [address] 120 tablet 0 HYDROcodone-acetaminophen (NORCO) 5-325 mg [...] by mouth nightly. Take 2 tablets at [facility] ht 30 tablet No current facility-administered medications [...] made to ensure accuracy. However, inadvertent computerized sole stapler welt errors may be pre sent. documented in [...]
--- OUTSIDE RECORDS SUMMARY | ~2019-09-01 | XMS | Encounter Summary ---
Demographics + + + | Address | [address] | | | [place] [address] | + + + | Home Phone [...] Author | [facility] | | | and Escobarana | + + + | Organization | [facility] [...] Team Providers + +------+ + | Care Vertical Punch Operator Name | Role | Phone | + +------+ + | Faith Rodríguez VISUAL AID EXPERT | PCP | | + +------+ + Encounter Details +--------+ + + + + | Date | Type | Department | Care Team | Description | +--------+ + + + + | 10/13/ | Orders Only | [place] [facility] | Faith Rodríguez | Constipation due to | | 2016 | | [facility] | D, VISUAL AID EXPERT ONE | opioid therapy | | | | PRIMARY CARE [address] | [facility] [place] | (Primary Dx) | | | | JET [facility] [place], | [place] [address] | | | | | [place] [address] | [phone] | | | | | [phone] | | | +--------+ + + + [...]
--- OUTSIDE RECORDS SUMMARY | ~2019-09-01 | XMS | Encounter Summary ---
Demographics + + + | Address | [address] | | | [place] [address] | + + + | Home Phone [...] | Author | [facility] | | | and Escobarana | + + + | Organization | [facility] | | | and [...] Team Providers + +------+ + | Care Livestock Haulier Name | Role | Phone | + [...] Medication Refill | | 2019 | | [facility] | LETTY [address] | | | | | PRIMARY CARE [address] | JET [facility], | | | | | [facility], | [place] [address] | | | | | [place] [address] | [phone] | | | | | [phone] | | | +--------+--------+ + + + [...]
--- OUTSIDE RECORDS SUMMARY | ~2019-09-01 | XMS | Encounter Summary ---
Demographics + + + | Address | [address] | | | [place] [address] | + + + | Home Phone [...] + | Author | [facility] | | | and Escobarana | + + + | Organization | [facility] | | [...] Team Providers + +------+ + | Care Transitional Kindergarten Teacher Name | Role | Phone | + +------+ + | Faith Rodríguez BUILDINGS AND GROUNDS DIRECTOR | PCP | | + +------+ [...] | | | | | Pulmonary | [place] | [facility] | | | | | nodules | MD Nitin | IMAGING [address] | | | | | Tobacco | [address] | | | | | dependence | JOSE J | [place] | | | | | Procedures | [place], | [address] | | | | | PET CT Skull | [place] [address] | Phone: | | | | | Base To Mid | Phone: | [phone] | | | | | Thigh | [phone] | Fax: | | | | | | Fax: | [phone] | | | | | | [phone] | | +--------+--------+ + + + + Reason for Visit Diagnostic/Screening (Routine) +--------+--------+ + + + + | Status | Reason | Specialty | Diagnoses / | Referred By | Referred To | | | | | Procedures | Contact | Contact | +--------+--------+ + + + + | Closed | | | Diagnoses | Myke, | [facility] | | | | | Pulmonary | Jcarlos | [facility] | | | | | nodules | MD Nitin | [address] | | | | | Tobacco | [address] | | | | | dependence | JOSE J | [place] | | | | | Procedures | [place], | [address] | | | | | PET CT Skull | [place] [address] | Phone: | | | | | Base To Mid | Phone: | [phone] | | | | | Thigh | [phone] | Fax: | | | | | | Fax: | [phone] | | | | | | [phone] | | +--------+--------+ + + + + Encounter Details +--------+ + + + + | Date | Type | Department | Care Team | Description | +--------+ + + + + | 10/09/ | Hospital | [place] [facility] | Jcarlos Stringer | Pulmonary nodules; | | 2016 | Encounter | HOSPITAL PET SCAN | MD Nitin [address] | Tobacco dependence | | | | [address] [place] | [place] | | | | | [place] | [place] [address] | | | | | [address] | [phone] | | | | | [phone] | | | +--------+ + + + [...] lung field | + + | Tobacco dependence Tobacco use disorder | + + documented in this encounter Administered Medications + +--------+ + +------+------+ | Medication Order | MAR | Action | Dose | Rate | Site | | | Action | Date | | | | + +--------+ + +------+------+ | fluorine-18 FDG injection 13.44 | Given | 10/09/20 | 13.44 | | | | millicurie 13.44 millicurie, | | 17 10:03 | millicur | | | | Intravenous, ONCE, 10/09/17 | | AM PST | ies | | | | at 1015, For 1 dose | | | | | | + +--------+ + +------+------+ +---+---+ | | | +---+---+ documented in this encounter"
--- OUTSIDE RECORDS SUMMARY | ~2019-09-01 | XMS | Encounter Summary ---
Demographics + + + | Address | [address] | | | [place] [address] | + + + | Home Phone [...] Author | [facility] | | | and Escobarana | + + + | Organization | [facility] | [...] Team Providers + +------+ + | Care Civil Designer Name | Role | Phone | [...] [facility], | [place] [address] | | | | | [place] [address] | [phone] | | | | | [phone] | | | +--------+--------+ + + + [...]
--- OUTSIDE RECORDS SUMMARY | ~2019-09-01 | XMS | Encounter Summary ---
Demographics + + + | Address | [address] | | | [place] [address] | + + + | Home Phone [...] Author | [facility] | | | and Escobarana | + + + | Organization | [facility] | | | and [...] Providers + +------+ + | Care Special Population Paraprofessional Name | Role | Phone | + +------+ + | Faith Rodríguez ORGANIC CHEMISTRY TEACHER | PCP | | + +------+ [...] | | | PET scan of | ORGANIC CHEMISTRY TEACHER ONE | DR [address] | | | | | head | UNIVERSITY | [facility], [place] | | | | | Procedures | [place] | [address] | | | | | MRI Neck | [place], [place] | Phone: | | | | | Soft Tissue | [address] | [phone] | | | | | Only w wo | Phone: | Fax: | | | | | Contrast | [phone] | [phone] | | | | | | Fax: | | | | | | | [phone] | | +--------+--------+ + + + + Reason for Visit Diagnostic/Screening (Routine) +--------+--------+ + + + + | Status | Reason | Specialty | Diagnoses / | Referred By | Referred To | | | | | Procedures | Contact | Contact | +--------+--------+ + + + + | Closed | | Radiology | Diagnoses | Rodríguez, | Cc Wgr Mri | | | | | Abnormal | Faith D, | [address] | | | | | PET scan of | ORGANIC CHEMISTRY TEACHER ONE | [address] | | | | | head | UNIVERSITY | [place], [place] | | | | | Procedures | [place] | [address] | | | | | MRI Neck | [place], [place] | Phone: | | | | | Soft Tissue | [address] | [phone] | | | | | Only w wo | Phone: | Fax: | | | | | Contrast | [phone] | [phone] | | | | | | Fax: | | | | | | | [phone] | | +--------+--------+ + + + + Encounter Details +--------+ + + + + | Date | Type | Department | Care Team | Description | +--------+ + + + + | 11/27/ | Hospital | [facility] | Faith Rodríguez | Abnormal PET scan of | | 2018 | Encounter | [facility] [address] | D, ORGANIC CHEMISTRY TEACHER ONE | head | | | | [address] [place] | [facility] [place] | | | | | [place], [place] | [place] [address] | | | | | [address] | [phone] | | | | | [phone] | | | +--------+ + + + [...] | + +--------+ + + + | MRI NECK SOFT TISSUE | Routin | 11/27/2017 | Abnormal PET scan | Results for this | | ONLY W WO CONTRAST | e | 2:04 PM | of head | procedure are in the | | | | PST | | results section. | + +--------+ + + + documented in this encounter Results MRI Neck Soft Tissue [...] cervical spine.Dictated by: | | Juan Miguel Espinoectronically Signed by: Juan Miguel Haider on 11/27/2017 3:07 PM | |Visualized brain parenchyma is unremarkable. | [...] + | Abnormal PET scan of head Nonspecific (abnormal) findings on radiological and other | | examination of skull and head | + + documented in this encounter Administered Medications + +--------+ +---------+------+--------+ | Medication Order | MAR | Action | Dose | Rate | Site | | | Action | Date | | | | + +--------+ +---------+------+--------+ | gadobutrol (GADAVIST) injection | Given | 11/27/19 | 6.5 mLs | | Right | | 6.5 mL 6.5 mL, Intravenous, | | 18 1:44 | | | Arm | | ONCE PRN, Other, Starting Mon | | PM PST | | | | | 11/27/17 at 1336, For 1 dose, MRI | | | | | | + +--------+ +---------+------+--------+ +---+---+ | | | +---+---+ documented in this encounter"
--- OUTSIDE RECORDS SUMMARY | ~2019-09-01 | XMS | Encounter Summary ---
Demographics + + + | Address | [address] | | | [place] [address] | + + + | Home Phone [...] + | Author | [facility] | | | and [place]obarana | + + + | Organization | [facility] | | [...] Team Providers + +------+ + | Care Sld Teacher Name | Role | Phone | [...] | Results | | 2018 | | [facility] | D, TOW MOTOR OPERATOR ONE | | | | | PRIMARY CARE [address] | [facility] | | | | | JET [facility], | [place], [place] [address] | | | | | [place] [address] | [phone] | | | | | [phone] | | | +--------+ + + + [...]
--- OUTSIDE RECORDS SUMMARY | ~2019-09-01 | XMS | Encounter Summary ---
Demographics + + + | Address | [address] | | | [place] [address] | + + + | Home Phone [...] | Author | [facility] | | | and Escobarana | + + + | Organization | [facility] [...] Team Providers + +------+ + | Care Coater Operator Name | Role | Phone | + +------+ + PCP | Unavailable | + +------+ + Encounter Details +--------+ + + + + | Date | Type | Department | Care Team | Description | +--------+ + + + + | 05/03/ | [facility] | [place] | Faith Rodríguez | | | 2017 | Encounter | [facility] | D, SKEIN STRAIGHTENER ONE | | | | | PRIMARY CARE [address] | [facility] | | | | | JET [facility] [place], | [place] [address] | | | | | [place] [address] | [phone] | | | | | [phone] | | | +--------+ + + + [...]
--- OUTSIDE RECORDS SUMMARY | ~2019-09-01 | XMS | Encounter Summary ---
Demographics + + + | Address | [address] | | | [place] [address] | + + + | Home Phone [...] + + | Author | [facility] | | | and [place]obar[place] | + + + | Organization | [facility] | [...] Team Providers + +------+ + | Care Multimedia Programmer Name | Role | Phone | + [...] | | [place] | [place] [address] | | | | | [address] | [phone] | | | | | [phone] | | | +--------+ + + + [...]
--- OUTSIDE RECORDS SUMMARY | ~2019-09-01 | XMS | Encounter Summary ---
Demographics + + + | Address | [address] | | | [place] [address] | + + + | Home Phone [...] | Author | [facility] | | | and [place]obar[place] | + + + | Organization | [facility] | | [...] Team Providers + +------+ + | Care Wheat Shipper Name | Role | Phone | + [...] | Results | | 2018 | | [facility] | D, RESIDENTIAL MANAGER ONE | | | | | PRIMARY CARE [address] | [facility] | | | | | JET [place], | [place], [place] [address] | | | | | [place] [address] | [phone] | | | | | [phone] | | | +--------+ + + + [...]
--- OUTSIDE RECORDS SUMMARY | ~2019-09-01 | XMS | Encounter Summary ---
Demographics + + + | Address | [address] | | | [place] [address] | + + + | Home Phone [...] | [facility] | | | and [place]obar[place] | + + + | Organization | [facility] [...] Team Providers + +------+ + | Care Steel Wool Machine Operator Name | Role | Phone [...] | HOSPITAL XRAY [address] | MD Jody [address] | | | | | [place] | [address] | | | | | [place] | [place] [address] | | | | | [address] | [phone] | | | | | [phone] | | | +--------+ + + + [...]
--- OUTSIDE RECORDS SUMMARY | ~2019-09-01 | XMS | Encounter Summary ---
Demographics + + + | Address | [address] | | | [place] [address] | + + + | Home Phone [...] | Author | [facility] | | | and Escobar[place] | + + + | Organization | [facility] | | | and [...] Team Providers + +------+ + | Care Telecommunications Manager Name | Role | Phone | [...] [place], [place] | | | | | [address] | [address] | | | | | [phone] | [phone] | | | | | | | [...] is | | | recommended. JOB #: [id number] Digitally Released by: Vitaly | | | [...] | | | | | JOB #: [id number] | | Digitally Released by: Juan Miguel Hamm | | | | | | Read By: JUAN MIGUEL HAMM MD | | Date: 04/29/2017 09:41 | | | + + documented in this encounter Visit Diagnoses Not on filedocumented in this encounter"
--- OUTSIDE RECORDS SUMMARY | ~2019-09-01 | XMS | Encounter Summary ---
Demographics + + + | Address | [address] | | | [place] [address] | + + + | Home Phone | | + + + | Preferred Language | Unknown | + + + | Marital Status | | + + + | Church Affiliation | Unknown | + + + | Race | Unknown | + + + | Ethnic Group | Unknown | + + + Author + + + | Author | [facility] | | | and Escobarana | + + + | Organization | [facility] | | | and [place] | [...] Team Providers + +------+ + | Care Lead Electrical Controls Engineer Name | Role | Phone | + +------+ + PCP | Unavailable | + +------+ + Encounter Details +--------+ + + + + | Date | Type | Department | Care Team | Description | +--------+ + + + + | 06/13/ | [facility] | [place] | Faith Rodríguez | | | 2017 | Encounter | [facility] | D, INFANT AND TODDLER TEACHER ONE | | | | | PRIMARY CARE [address] | [facility] | | | | | JET [facility], | [place] [address] | | | | | [place] [address] | [phone] | | | | | [phone] | | | +--------+ + + + [...]
--- OUTSIDE RECORDS SUMMARY | ~2019-09-01 | XMS | Encounter Summary ---
Demographics + + + | Address | [address] | | | [place] [address] | + + + | Home Phone [...] | Author | [facility] | | | and Escobarana | + + + | Organization | [facility] | | | and [...] Team Providers + +------+ + | Care Contact Center Professional Name | Role | Phone | + [...] of | | 2019 | Visit | [facility] | DNP [address] | finger, initial | | | | PRIMARY CARE [address] | [place] [address] | encounter (Primary | | | | JET [facility], | [phone] | Dx); Chronic | | | | [place] [address] | | obstructive | | | | [phone] | | pulmonary disease, | | | | | | unspecified COPD | | | | | | type ([facility]); Stable | | | | | | angina pectoris | | | | | | ([facility]) | +--------+---------+ + + [...] drainage. The cat was taken to the [facility] after the bite incident. While the finger [...] & Cleansers Swelling Rash/swelling Uncoded Nonscreenable Allergen Stephens, patient states he gets red spots and [...]
--- OUTSIDE RECORDS SUMMARY | ~2019-09-01 | XMS | Encounter Summary ---
Demographics + + + | Address | [address] | | | [place] [address] | + + + | Home Phone [...] Author | [facility] | | | and Escobarana | + + + | Organization | [facility] | | | and [place] | [...] Team Providers + +------+ + | Care Research Quality Assurance Analyst Name | Role | Phone | [...] | PRIMARY CARE [address] | JET [employer], | | | | | [place] [employer], | [place] [address] | | | | | [place] [address] | [phone] | | | | | [phone] | | | +--------+ + + + [...] 08/13/2018 2:31 PM PDTReceived 08-20-18 by : [facility] agentE lectronically signed by Rosalia Harmon at 08/30/2018 10:47 AM PSTRosalia Harmon - 08/13 2:31 PM PDTHydrocodone 5-325 mg qty 112 Certified mail to: [place] [address] [place] [address] Tracking number: [id number] signed by Rosalia Harmon at 08/13/2018 2:33 PM PDTdoc umented in this encounter Plan of Treatment Not on filedocumented as of this encounter Visit Diagnoses Not on filedocumented in this encounter"
--- OUTSIDE RECORDS SUMMARY | ~2019-09-01 | XMS | Encounter Summary ---
Demographics + + + | Address | [address] | | | [place] [address] | + + + | Home Phone [...] | Author | [facility] | | | and [place]obar[place] | + + + | Organization | [facility] | | [...] Team Providers + +------+ + | Care Semiconductor Packages Sealer Name | Role | Phone | + +------+ + | Faith Rodríguez VASCULAR RADIOLOGIST | PCP | | + +------+ + Encounter Details +--------+ + + + + | Date | Type | Department | Care Team | Description | +--------+ + + + + | 11/21/ | Orders Only | [place] [facility] | Faith Rodríguez | Pre-procedure lab | | 2018 | | [facility] | D, VASCULAR RADIOLOGIST ONE | exam (Primary Dx) | | | | PRIMARY CARE [address] | [facility] [place] | | | | | [facility], | [place] [address] | | | | | [place] [address] | [phone] | | | | | [phone] | | | +--------+ + + + [...] | mL/min/1.73m2 | [facility] | [facility] | | | [...] + + | [place] [facility] | [address] | [place] [address] | [phone] | | HOSPITAL LABORATORY | | | | + + + + + documented in this encounter Visit Diagnoses + + | Diagnosis | + + | Pre-procedure lab exam - Primary Pre-procedural laboratory examination | + + documented in this encounter"
--- OUTSIDE RECORDS SUMMARY | ~2019-09-01 | XMS | Encounter Summary ---
Demographics + + + | Address | [address] | | | [place] [address] | + + + | Home Phone [...] + + | Author | [facility] | | | and [place]obar[place] | + + + | Organization | [facility] | [...] Team Providers + +------+ + | Care Architectural Draftsperson Name | Role | Phone | + +------+ + PCP | Unavailable | + +------+ + Encounter Details +--------+ + + + + | Date | Type | Department | Care Team | Description | +--------+ + + + + | 06/29/ | [facility] | [place] | Faith Rodríugez | | | 2017 | Encounter | [facility] | D, UPPER AND BOTTOM LACER HAND ONE | | | | | PRIMARY CARE [address] | [facility] | | | | | JET [facility], | [place] [address] | | | | | [place] [address] | [phone] | | | | | [phone] | | | +--------+ + + + [...]
--- OUTSIDE RECORDS SUMMARY | ~2019-09-01 | XMS | Encounter Summary ---
Demographics + + + | Address | [address] | | | [place] [address] | + + + | Home Phone [...] | Author | [facility] | | | and Escobarana | + + + | Organization | [facility] | | | and [...] Team Providers + +------+ + | Care Development Vice President Name | Role | Phone | + [...] | | PRIMARY CARE [address] | [facility], | [place] [address] | | | | | [place] [address] | [phone] | | | | | [phone] | | | +--------+ + + + [...]
--- OUTSIDE RECORDS SUMMARY | ~2019-09-01 | XMS | Encounter Summary ---
Demographics + + + | Address | [address] | | | [place] [address] | + + + | Home Phone [...] Author | [facility] | | | and Escobarana | + + + | Organization | [facility] [...] Team Providers + +------+ + | Care Set Decorator Name | Role | Phone | [...] Medication Refill | | 2017 | | [facility] | D, GILL BOX FIXER ONE | | | | | [address] | [facility] [place] | | | | | [facility], [place] | [place] [address] | | | | | [address] | [phone] | | | | | [phone] | | | +--------+ + + + [...]
--- OUTSIDE RECORDS SUMMARY | ~2019-09-01 | XMS | Encounter Summary ---
Demographics + + + | Address | [address] | | | [place] [address] | + + + | Home Phone [...] Author | [facility] | | | and Escobarana | + + + | Organization | [facility] | | | and [...] Team Providers + +------+ + | Care Physician Office Rep Name | Role | Phone | + +------+ + | Aric Palmer | PCP | | | LETTY | | | + +------+ + Reason for Visit + + + | Reason | Comments | + + + | Provide Resources | GAVINW assistance with senior living care facility | + + + Encounter Details +--------+ + + + + | Date | Type | Department | Care Team | Description | +--------+ + + + + | 01/24/ | Telephone | [place] [facility] | Estrellita Brasher | Provide Resources | | 2019 | | [facility] | MONY Palmer [address] | (W assistance with | | | | PRIMARY CARE [address] | [address] [place] | senior living care | | | | [facility] | [place] [address] | facility) | | | | [place] [address] | [phone] | | | | | [phone] | | | +--------+ + + + [...]
--- OUTSIDE RECORDS SUMMARY | ~2019-09-01 | XMS | Encounter Summary ---
Demographics + + + | Address | [address] | | | [place] [address] | + + + | Home Phone [...] Author | [facility] | | | and [place]obar[place] | + + + | Organization | [facility] | | | and [place] [...] Team Providers + +------+ + | Care Bullet Charging Machine Operator Name | Role | Phone [...] JET [facility] [place], | [place] [address] | | | | | [place] [address] | [phone] | | | | | [phone] | | | +--------+ + + + [...]
--- OUTSIDE RECORDS SUMMARY | ~2019-09-01 | XMS | Encounter Summary ---
Demographics + + + | Address | [address] | | | [place] [address] | + + + | Home Phone [...] Author | [facility] | | | and [place]obar[place] | + + + | Organization | [facility] [...] Providers + +------+ + | Care Special Needs Tutor Name | Role | Phone | + [...] Medication Question | | 2018 | | [facility] | D, MOTOR REBUILDER ONE | | | | | PRIMARY CARE [address] | [facility] | | | | | JET [facility], | [place] [address] | | | | | [place] [address] | [phone] | | | | | [phone] | | | +--------+ + + + [...]
--- OUTSIDE RECORDS SUMMARY | ~2019-09-01 | XMS | Encounter Summary ---
Demographics + + + | Address | [address] | | | [place] [address] | + + + | Home Phone [...] | Author | [facility] | | | and [place]obar[place] | + + + | Organization | [facility] | | | and [place] | [...] Team Providers + +------+ + | Care Criminal Justice Professor Name | Role | Phone | + +------+ + | Faith Rodríguez SOCIAL SERVICES ASSISTANT | PCP | | + +------+ + [...] artery | MD Brendan | [address] | | | | | disease, | [address] | [place], | | | | | angina | St [place] | [place] | | | | | presence | [place] | [address] | | | | | unspecified, | [address] | Phone: | | | | | unspecified | Phone: | [phone] | | | | | vessel or | [phone] | Fax: | | | | | lesion type, | Fax: | [phone] | | | | | unspecified | [phone] | | | | | | whether | | | | | | | santa rosa or | | | | | | [...] | | | | | | STUDIES UT | | | | | | | CV STRS TST | | | | | | | XERS&/OR RX | | | | | | | CONT ECG W/O | | | | | | | I&R UT | | | | | | | [...] embolism and | 78 | [address] | | | | | thrombosis | [place] | [place], | | | | | Encounter | Drive [place] | [place] | | | | | for other | [place] | [address] | | | | | preprocedura | [address] | Phone: | | | | | l | Phone: | [phone] | | | | | examination | [phone] | Fax: | | | | | Procedures | Fax: | [phone] | | | | | SOCIAL SERVICES ASSISTANT | [phone] | | +--------+--------+ + + + + Encounter Details +--------+---------+ + + + | Date | Type | Department | Care Team | Description | +--------+---------+ + + + | 10/12/ | Office | [facility] | Deangelo Macias | Abdominal aortic | | 2017 | Visit | CARDIOLOGY [address] | MD Brendan [address] | aneurysm (AAA) | | | | [address] [place], | [address] [place] | without rupture | | | | [place] [address] | [place] [address] | (HCC) (Primary Dx); | | | | [phone] | [phone] | Essential | | | | | [...] whether | | | | | | santa rosa or | | | | | | [...] stress test Where to go for labs: [facility]- [address] [facility] Persantine/Lexiscan Myoview Date: Check-in Time: Where [...] 1945: AGE: 72 y.o. REFERRED BY: Marcial Mithcell PRIMARY CARE: Faith Rodríguez NP CARDIOLOGY OFFICE VISIT Date of Service: 10/12/17 HISTORY OF PRESENT ILLNESS: Saturnino Avila is a 72 y.o. male with a history of heart failure, severe emphysema, prior anteroseptal [place] and strokes, heavy tobacco use, abdominal aortic [...] very good historian. He also admits to Gonzales of alcohol use. MEDICAL, SURGICAL, AND PERSONAL [...] made to ensure accuracy; however, inadvertent computerized personal computer specialist errors may be pre sent. Electronically signed by: Kya Macias MD PhD [facility] 10/12/2017 documented in t his encounter Plan [...] 46%. Signed by: Kya Macias MD PhD [facility] | | | 01/02/2018, 14:05 | | [...] MD | | | | | | ([id number]) on 10/12/2017 | | | | | [...] or lesion | | type, unspecified whether santa rosa or transplanted heart | + + | Congestive heart failure, unspecified congestive heart failure chronicity, unspecified | | congestive heart failure type | + + | Tobacco use disorder | + + documented in this encounter
--- OUTSIDE RECORDS SUMMARY | ~2019-09-01 | XMS | Encounter Summary ---
Demographics + + + | Address | [address] | | | [place] [address] | + + + | Home Phone [...] | Author | [facility] | | | and [place] | + + + | Organization | [facility] | [...] Team Providers + +------+ + | Care Android Platform Developer Name | Role | Phone | + +------+ + | Faith Rodríguez VOLUNTEER SERVICES DIRECTOR | PCP | | + +------+ + Encounter Details +--------+ + + + + | Date | Type | Department | Care Team | Description | +--------+ + + + + | 03/14/ | Abstract | [place] [facility] | Faith Rodríguez | Dermatitis; | | 2017 | | [facility] | D, VOLUNTEER SERVICES DIRECTOR ONE | Insomnia, | | | | PRIMARY CARE [address] | [facility] [place] | unspecified type; | | | | [facility], | [place] [address] | Ventral hernia | | | | [place] [address] | [phone] | without obstruction | | | | [phone] | | or gangrene; | | | [...]
--- OUTSIDE RECORDS SUMMARY | ~2019-09-01 | XMS | Encounter Summary ---
Demographics + + + | Address | [address] | | | [place] [address] | + + + | Home Phone [...] + | Author | [facility] | | | and [place] | + + + | Organization | [facility] | [...] Team Providers + +------+ + | Care City Planning Engineer Name | Role | Phone | + +------+ + | Aric Palmer | PCP | | | [place]TY | | | + +------+ + Reason for Visit + + + | Reason | Comments | + + + | Provide Resources | GAVINW assistance with fdc care facility | + + + Encounter Details +--------+ + + + + | Date | Type | Department | Care Team | Description | +--------+ + + + + | 01/24/ | Telephone | [place] [facility] | Estrellita Brasher | Provide Resources | | 2019 | | [facility] | MONY Palmer [address] | (W assistance with | | | | PRIMARY CARE [address] [place] | fdc care | | | | [facility], | [place] [address] | facility) | | | | [place] [address] | [phone] | | | | | [phone] | | | +--------+ + + + [...]
--- OUTSIDE RECORDS SUMMARY | ~2019-09-01 | XMS | Encounter Summary ---
Demographics + + + | Address | [address] | | | [place] [address] | + + + | Home Phone [...] + | Author | [facility] | | | and [place] | + + + | Organization | [facility] | | | [...] Team Providers + +------+ + | Care String Cutter Name | Role | Phone | [...] Gastroesophageal | | 2019 | Visit | [facility] | Antonina, AGPCNP-C [address] | reflux disease, | | | | PRIMARY CARE [address] | esophagitis presence | | | | [facility], | [place] [address] | not specified | | | | [place] [address] | [phone] | (Primary Dx); | | | | [phone] | | Essential | | | | | | hypertension; | | | | | | Panlobular emphysema | | | | | | ([facility]); Moderate | | | | | | protein-calorie | | | | | | malnutrition ([facility]) | +--------+---------+ + + + [...] your stomach empty better. Date Last Reviewed: 07/23/201619994883-2180 [employer]. [address] [place] [address], [place] [address]. All righ ts reserved. This information is [...] 2212. Patient declines diuretic. Patient has seen assistance specialist Dr. Little in the past, over a year ago. Declines referral for follow-up with assistance specialist 3. Panlobular emphysema (HCC) Assessment & Plan: [...] Patient presents with Gastroesophageal Reflux Patient in [facility] today for refill of omeprazole. New [...]
--- OUTSIDE RECORDS SUMMARY | ~2019-09-01 | XMS | Encounter Summary ---
Demographics + + + | Address | [address] | | | [place] [address] | + + + | Home Phone [...] | Author | [facility] | | | and [place] | + + + | Organization | [facility] | | | and [...] Team Providers + +------+ + | Care Lidding Machine Operator Name | Role | Phone | + +------+ + PCP | Unavailable | + +------+ + Encounter Details +--------+ + + + + | Date | Type | Department | Care Team | Description | +--------+ + + + + | 04/20/ | Hospital | [place] [facility] | Faith Rodríugez | | | 2016 | Encounter | [facility] XRAY [address] | D, JAVA XML DEVELOPER ONE | | | | | [address] | [facility] [place] | | | | | [place] | [place] [address] | | | | | [address] | [phone] | | | | | [phone] | | | +--------+ + + + [...] | No acute finding identified. JOB #: [id number] Digitally Released | | | by: Faye [...] | | | | | JOB #: [id number] | | Digitally Released by: Faye Quintero | | | | | | Read By: FAYE QUINTERO MD | | Date: 04/20/2017 10:53 | | | + + documented in this encounter Visit Diagnoses Not on filedocumented in this encounter"
--- OUTSIDE RECORDS SUMMARY | ~2019-09-01 | XMS | Encounter Summary ---
Demographics + + + | Address | [address] | | | [place] [address] | + + + | Home Phone [...] Author | [facility] | | | and [place] | + + + | Organization | [facility] | | [...] Team Providers + +------+ + | Care Lamp Assembler Name | Role | Phone | [...] Medication Question | | 2018 | | [facility] | D, TIRE SPECIALIST ONE | | | | | PRIMARY CARE [address] | [facility] | | | | | [facility], | [place] [address] | | | | | [place] [address] | [phone] | | | | | [phone] | | | +--------+ + + + [...]
--- OUTSIDE RECORDS SUMMARY | ~2019-09-01 | XMS | Encounter Summary ---
Demographics + + + | Address | [address] | | | [place] [address] | + + + | Home Phone [...] | Author | [facility] | | | and [place] | + + + | Organization | [facility] [...] Team Providers + +------+ + | Care Crozer Name | Role | Phone | + +------+ + | Aric Palmer | PCP | | | LETTY | | | + +------+ + Reason for Visit + + + | Reason | Comments | + + + | Provide Resources | GAVINW assistance with terminologist care facility information | + + + Encounter Details +--------+ + + + + | Date | Type | Department | Care Team | Description | +--------+ + + + + | 01/21/ | Telephone | [place] [facility] | Estrellita Brasher | Provide Resources | | 2019 | | [facility] | D, [address] | ([facility] assistance with | | | | PRIMARY CARE [address] | [address] [place] | terminologist care | | | | [facility], | [place] [address] | facility | | | | [place] [address] | [phone] | information) | | | | [phone] | | | +--------+ + + + [...]
--- OUTSIDE RECORDS SUMMARY | ~2019-09-01 | XMS | Encounter Summary ---
Demographics + + + | Address | [address] | | | [place] [address] | + + + | Home Phone [...] + + | Author | [facility] | | | and [place] | + + + | Organization | [facility] | [...] Team Providers + +------+ + | Care Specialty Finishing Utility Person Name | Role | Phone | [...] | | [facility], | [place] [address] | | | | | [place] [address] | [phone] | | | | | [phone] | | | +--------+ + + + [...]
--- OUTSIDE RECORDS SUMMARY | ~2019-09-01 | XMS | Encounter Summary ---
Demographics + + + | Address | [address] | | | [place] [address] | + + + | Home Phone [...] | [facility] | | | and [place] | + + + | Organization | [facility] | | | and [place] [...] Team Providers + +------+ + | Care Marine Pipefitter Name | Role | Phone | + +------+ + PCP | Unavailable | + +------+ + Encounter Details +--------+ + + + + | Date | Type | Department | Care Team | Description | +--------+ + + + + | 06/13/ | [facility] | [place] | Faith Rodríguez | | | 2017 | Encounter | [facility] | D, CORRUGATOR MACHINE OPERATOR ONE | | | | | PRIMARY CARE [address] | [facility] | | | | | [facility], | [place] [address] | | | | | [place] [address] | [phone] | | | | | [phone] | | | +--------+ + + + [...]
--- OUTSIDE RECORDS SUMMARY | ~2019-09-01 | XMS | Encounter Summary ---
Demographics + + + | Address | [address] | | | [place] [address] | + + + | Home Phone [...] Author | [facility] | | | and [place] | + + + | Organization | [facility] [...] Team Providers + +------+ + | Care Violin Teacher Name | Role | Phone | [...] Essential | | 2017 | Visit | [facility] | D, ROAD TRAIN DRIVER ONE | hypertension | | | | PRIMARY CARE [address] | [facility] [place] | (Primary Dx); Other | | | | [facility], | [place] [address] | osteoarthritis of | | | | [place] [address] | [phone] | spine, lumbar | | | | [phone] | | region; Pain | | | [...] specific instruc tions. Acupuncture Acupuncture is a 4992-mvvp-obj practice. Practitioners insert thin needles in specific part s of the body. Research shows that it can help to relieve the pain of arthritis. For more information or to find a practitioner in your area, contact the [employer] [employer]upuncture. Its website [...] biofeedback, stress management, and hypnosis. Ask your [facility] provider for more information about these therapies. For more information about many of these methods, contact the National [facility] for [facility] tary and Alternative Medicine (NCCAM) at http://www.[facility].nih.gov. Date Last Reviewed: 12/06/201519998209-7726 [employer]. [address] [place] [address], [place] [address]. All righ ts reserved. This information is [...] quit within a month, and do it. Ninety Six to your quit plan Talk to your [...] Track your triggers What gives you that F-vage-a-cigarette feeling? List all the situations that make [...] wants to stop smoking. Date Last Reviewed: 04/22/201619998546-5720 [employer]. [address] [place] [address], [place] [address]. All righ ts reserved. This information is [...] car. Draw. Do a puzzle. Build a [employer]. Delay. The urge to smoke lasts only [...] nicot ine replacement products. They are available oiyy-mbe-xrcluzk or by prescription. Ask your ealtare provider if any of these could help you quit smoking. For more information https://smokefree.gov/prya-dy-zd-expert [facility] Smoking Quitline: 999-50N-BVZV (130-601-2785) Date Last Reviewed: 11/23/201619995549-5626 [employer]. [address] [place] [address]. All [facility] ts reserved. This information is not intended as a substitute for professional medical care. Always follow your healthcare professional's instructions. documented in this encounter Progress Notes Faith Rodríguez NP - 10/11/2017 1:00 PM PST [facility] PROGRESS NOTE Pt. Name/Age/: Saturnino Avila 72 y.o. 1945 Med. Record Number: [id number] Assessment and Plan: 1. Essential hypertension - [...] g nodules. He will be going to [place] tomorrow to the vascular specialist, Dr. Little. [...] cessation. Referral will be placed through the [place]. He is not using the albuterol often [...] get refills of medicine(s) from: [facility] [place] [address] Goals and Alternatives Your goals from therapy [...] [facility] If I prescribe these medications [...] reliably predicted. 8. TOLERANCE - with terminal superintendent use, an increased amount of the same [...] stress at this time: yes, trips to [place] and roommate's mental state History of emotional [...] Diagnostics | | | | | | [facility] | | | | | | Keturah Grissom M.D., | | | | | | , Laboratory | | | | | | Director [id number] | | | | | | [facility] | | | | | | [place] [address] | | | | | | CLIA #[id number] | | | | + + + [...] + + + | REFERENCE LAB | [address] [facility] | [place], [place] | | | [facility] - | | [address] | | | [facility] | | [...]
--- OUTSIDE RECORDS SUMMARY | ~2019-09-01 | XMS | Encounter Summary ---
Demographics + + + | Address | [address] | | | [place] [address] | + + + | Home Phone [...] + | Author | [facility] | | | and [place] | + + + | Organization | [facility] [...] Team Providers + +------+ + | Care Wool Washer Feeder Name | Role | Phone | + +------+ + PCP | Unavailable | + +------+ + Encounter Details +--------+ + + + + | Date | Type | Department | Care Team | Description | +--------+ + + + + | 04/13/ | [facility] | [place] | Faith Rodríguez | | | 2017 | Encounter | [facility] | D, RESIDENTIAL SALES CONSULTANT ONE | | | | | PRIMARY CARE [address] | [facility] | | | | | [facility], | [place] [address] | | | | | [place] [address] | [phone] | | | | | [phone] | | | +--------+ + + + [...]
--- OUTSIDE RECORDS SUMMARY | ~2019-09-01 | XMS | Encounter Summary ---
Demographics + + + | Address | [address] | | | [place] [address] | + + + | Home Phone [...] Author | [facility] | | | and [place] | + + + | Organization | [facility] | | [...] Team Providers + +------+ + | Care Hse Manager Name | Role | Phone | + +------+ + | Faith Rodríguez DIGITAL MUSIC INSTRUCTOR | PCP | | + +------+ + [...] | | | PET scan of | DIGITAL MUSIC INSTRUCTOR ONE | DR [address] | | | | | head | UNIVERSITY | [facility], [place] | | | | | Procedures | [place] [place] | [address] | | | | | MRI Neck | [place], [place] | Phone: | | | | | Soft Tissue | [address] | [phone] | | | | | Only w wo | Phone: | Fax: | | | | | Contrast | [phone] | [phone] | | | | | | Fax: | | | | | | | [phone] | | +--------+--------+ + + + + [...] | | | PET scan of | DIGITAL MUSIC INSTRUCTOR ONE | DR [address] | | | | | head | UNIVERSITY | [place], [place] | | | | | Procedures | [address] [place] | [address] | | | | | MRI Neck | [place], [place] | Phone: | | | | | Soft Tissue | [address] | [phone] | | | | | Only w wo | Phone: | Fax: | | | | | Contrast | [phone] | [phone] | | | | | | Fax: | | | | | | | [phone] | | +--------+--------+ + + + + Encounter Details +--------+ + + + + | Date | Type | Department | Care Team | Description | +--------+ + + + + | 11/27/ | Hospital | [place] [facility] | Faith Rodríguez | Abnormal PET scan of | | 2018 | Encounter | [facility] 900 | D, DIGITAL MUSIC INSTRUCTOR ONE | head | | | | [address] | [facility] [place] | | | | | [place], [place] | [place] [address] | | | | | [address] | [phone] | | | | | [phone] | | | +--------+ + + + [...]
--- OUTSIDE RECORDS SUMMARY | ~2019-09-01 | XMS | Encounter Summary ---
Demographics + + + | Address | [address] | | | [place] [address] | + + + | Home Phone | | + + + | Preferred Language | Unknown | + + + | Marital Status | | + + + | Yazdanism Affiliation | Unknown | + + + | Race | Unknown | + + + | Ethnic Group | Unknown | + + + Author + + + | Author | [facility] | | | and [place]obar[place] | + + + | Organization | [facility] | [...] Team Providers + +------+ + | Care Tobacco Buyer Name | Role | Phone | + [...] Results | | 2018 | | [facility] | D, EVAPORATIVE COOLER INSTALLER ONE | | | | | PRIMARY CARE [address] | [facility] | | | | | [facility], | [place], [place] [address] | | | | | [place] [address] | [phone] | | | | | [phone] | | | +--------+ + + + [...]
--- OUTSIDE RECORDS SUMMARY | ~2019-09-01 | XMS | Encounter Summary ---
Demographics + + + | Address | [address] | | | [place] [address] | + + + | Home Phone [...] | Author | [facility] | | | and [place] | + + + | Organization | [facility] [...] Team Providers + +------+ + | Care Risk Consultant Name | Role | Phone | + +------+ + PCP | Unavailable | + +------+ + Encounter Details +--------+ + + + + | Date | Type | Department | Care Team | Description | +--------+ + + + + | 04/17/ | [facility] | [place] | Faith Rodríguez | | | 2017 | Encounter | [facility] | D, DEPUTY COURT CLERK ONE | | | | | PRIMARY CARE [address] | [facility] | | | | | [facility], | [place] [address] | | | | | [place] [address] | [phone] | | | | | [phone] | | | +--------+ + + + [...]
--- OUTSIDE RECORDS SUMMARY | ~2019-09-01 | XMS | Encounter Summary ---
Demographics + + + | Address | [address] | | | [place] [address] | + + + | Home Phone [...] + | Author | [facility] | | | and [place] | + + + | Organization | [facility] | [...] Providers + +------+ + | Care Circulation Assistant Name | Role | Phone | + +------+ + | Faith Rodríguez BREAKER MECHANIC | PCP | | + +------+ + [...] | | | PET scan of | BREAKER MECHANIC ONE | DR [address] | | | | | head | UNIVERSITY | [facility], [place] | | | | | Procedures | [address] [place] | [address] | | | | | MRI Neck | [place], [place] | Phone: | | | | | Soft Tissue | [address] | [phone] | | | | | Only w wo | Phone: | Fax: | | | | | Contrast | [phone] | [phone] | | | | | | Fax: | | | | | | | [phone] | | +--------+--------+ + + + + [...] | | | PET scan of | BREAKER MECHANIC ONE | DR [address] | | | | | head | UNIVERSITY | [place], [place] | | | | | Procedures | [address] [place] | [address] | | | | | MRI Neck | [place], [place] | Phone: | | | | | Soft Tissue | [address] | [phone] | | | | | Only w wo | Phone: | Fax: | | | | | Contrast | [phone] | [phone] | | | | | | Fax: | | | | | | | [phone] | | +--------+--------+ + + + + Encounter Details +--------+ + + + + | Date | Type | Department | Care Team | Description | +--------+ + + + + | 11/27/ | Hospital | [place] | Faith Rodríguez | Abnormal PET scan of | | 2018 | Encounter | [facility] 900 | D, BREAKER MECHANIC ONE | head | | | | [address] | [facility] [place] | | | | | [place], [place] | [place] [address] | | | | | [address] | [phone] | | | | | [phone] | | | +--------+ + + + [...]
--- OUTSIDE RECORDS SUMMARY | ~2019-09-01 | XMS | Encounter Summary ---
Demographics + + + | Address | [address] | | | [place] [address] | + + + | Home Phone [...] Author | [facility] | | | and Escobarana | + + + | Organization | [facility] | | | and [...] Team Providers + +------+ + | Care Student Services Advisor Name | Role | Phone | + [...] Medication Refill | | 2018 | | [facility] | D, FIELD SERVICE COORDINATOR ONE | | | | | PRIMARY CARE [address] | [facility] | | | | | [facility], | [place] [address] | | | | | [place] [address] | [phone] | | | | | [phone] | | | +--------+--------+ + + + [...]
--- OUTSIDE RECORDS SUMMARY | ~2019-09-01 | XMS | Encounter Summary ---
Demographics + + + | Address | [address] | | | [place] [address] | + + + | Home Phone [...] | Author | [facility] | | | and Escobar[place] | + + + | Organization | [facility] | | [...] Team Providers + +------+ + | Care Champion Of Sustainable Design Name | Role | Phone | + [...] Medication Refill | | 2019 | | [facility] | LETTY [address] | | | | | PRIMARY CARE [address] | [facility], | | | | | [facility], | [place] [address] | | | | | [place] [address] | [phone] | | | | | [phone] | | | +--------+--------+ + + + [...]
--- OUTSIDE RECORDS SUMMARY | ~2019-09-01 | XMS | Encounter Summary ---
Demographics + + + | Address | [address] | | | [place] [address] | + + + | Home Phone [...] | Author | [facility] | | | and [place] | + + + | Organization | [facility] | | [...] Team Providers + +------+ + | Care Rn L And D Name | Role | Phone | + [...] Medication Refill | | 2018 | | [facility] | D, SYSTEMS INTEGRATION MANAGER ONE | | | | | PRIMARY CARE [address] | [facility] | | | | | [facility], | [place] [address] | | | | | [place] [address] | [phone] | | | | | [phone] | | | +--------+--------+ + + + [...]
--- OUTSIDE RECORDS SUMMARY | ~2019-09-01 | XMS | Encounter Summary ---
Demographics + + + | Address | [address] | | | [place] [address] | + + + | Home Phone | | + + + | Preferred Language | Unknown | + + + | Marital Status | | + + + | Holiness Affiliation | Unknown | + + + | Race | Unknown | + + + | Ethnic Group | Unknown | + + + Author + + + | Author | [facility] | | | and [place] | + + + | Organization | [facility] [...] Team Providers + +------+ + | Care Glass Tube Bender Name | Role | Phone | + [...] | PRIMARY CARE [address] | [place] [employer], | | | | | [place] [employer], | [place] [address] | | | | | [place] [address] | [phone] | | | | | [phone] | | | +--------+ + + + [...] qty 112 Certified mailed to: Nyla Redmond [address] Brown [address] [place] [address] Tracing number: [id number] Received 11-28-18 by [place] mail clerk 5: 31 PM PSTdocumented in this encounter Plan of Treatment Not on filedocumented as of this encounter Visit Diagnoses Not on filedocumented in this encounter"
--- OUTSIDE RECORDS SUMMARY | ~2019-09-01 | XMS | Encounter Summary ---
Demographics + + + | Address | [address] | | | [place] [address] | + + + | Home Phone [...] Author | [facility] | | | and [place] | + + + | Organization | [facility] | | | [...] Team Providers + +------+ + | Care Long Line Teamster Name | Role | Phone | + +------+ + PCP | Unavailable | + +------+ + Encounter Details +--------+ + + + + | Date | Type | Department | Care Team | Description | +--------+ + + + + | 05/09/ | Hospital | [place] [facility] | Faith Rodríguez | | | 2016 | Encounter | HOSPITAL XRAY [address] | D, FINISHING WIRE SAWYER ONE | | | | | [address] | [facility] | | | | | [place] | [place] [address] | | | | | [address] | [phone] | | | | | [phone] | | | +--------+ + + + [...] similar | | | appearance. JOB #: [id number] Digitally Released by: Faye Quintero | | | Read By: FAEY QUINTERO MD Date: 05/09/2017 13:58 | | [...] | | | | | JOB #: [id number] | | Digitally Released by: Faye Quintero | | | | | | Read By: FAYE QUINTERO MD | | Date: 05/09/2017 13:58 | | | + + documented in this encounter Visit Diagnoses Not on filedocumented in this encounter"
--- OUTSIDE RECORDS SUMMARY | ~2019-09-01 | XMS | Encounter Summary ---
Demographics + + + | Address | [address] | | | [place] [address] | + + + | Home Phone [...] | Author | [facility] | | | and [place] | + + + | Organization | [facility] | | [...] Team Providers + +------+ + | Care Intelligence Operations Name | Role | Phone | + +------+ + PCP | Unavailable | + +------+ + Encounter Details +--------+ + + + + | Date | Type | Department | Care Team | Description | +--------+ + + + + | 12/16/ | Hospital | [place] [facility] | Jacklyn [place] | | | 2010 | Encounter | HOSPITAL THERAPY PT | MD [address] | | | | | [address] | [address] | | | | | [place] | [place] [address] | | | | | [address] | [phone] | | | | | [phone] | | | +--------+ + + + [...]
--- OUTSIDE RECORDS SUMMARY | ~2019-09-01 | XMS | Encounter Summary ---
Demographics + + + | Address | [address] | | | [place] [address] | + + + | Home Phone [...] | Author | [facility] | | | and [place] | + + + | Organization | [facility] | [...] Providers + +------+ + | Care Supervisor Propellant Charge Loading Name | Role | Phone | + +------+ + PCP | Unavailable | + +------+ + Encounter Details +--------+ + + + + | Date | Type | Department | Care Team | Description | +--------+ + + + + | 06/29/ | [facility] | [place] [facility] | Faith Rodríguez | | | 2017 | Encounter | [facility] | D, SCENIC DESIGNER ONE | | | | | PRIMARY CARE [address] | [facility] | | | | | JET [facility], | [place] [address] | | | | | [place] [address] | [phone] | | | | | [phone] | | | +--------+ + + + [...]
--- OUTSIDE RECORDS SUMMARY | ~2019-09-01 | XMS | Encounter Summary ---
Demographics + + + | Address | [address] | | | [place] [address] | + + + | Home Phone [...] Author | [facility] | | | and [place] | + + + | Organization | [facility] [...] Team Providers + +------+ + | Care Labor Arbitrator Hearing Office Name | Role | Phone | + +------+ + | Faith Rodríguez MANAGER GREEN | PCP | | + +------+ + [...] | | | | | Pulmonary | Rose | [facility] | | | | | nodules | MD Nitin | IMAGING [address] | | | | | Tobacco | [address] | | | | | dependence | JOSE J | [place] | | | | | Procedures | [place], | [address] | | | | | PET CT Skull | [place] [address] | Phone: | | | | | Base To Mid | Phone: | [phone] | | | | | Thigh | [phone] | Fax: | | | | | | Fax: | [phone] | | | | | | [phone] | | +--------+--------+ + + + + [...] | | | [place] | [place] [address] | | | | | [address] | [phone] | | | | | [phone] | | | +--------+ + + + [...]
--- OUTSIDE RECORDS SUMMARY | ~2019-09-01 | XMS | Encounter Summary ---
Demographics + + + | Address | [address] | | | [place] [address] | + + + | Home Phone [...] | [facility] | | | and [place] | + + + | Organization | [facility] | | | and [place] | [...] Team Providers + +------+ + | Care Ignition Expert Name | Role | Phone | + +------+ + | Faith Rodríguez NP | PCP | | + +------+ + Reason for Visit + + + | Reason | Comments | + + + | Follow-up | meds | + + + Encounter Details +--------+---------+ + + + | Date | Type | Department | Care Team | Description | +--------+---------+ + + + | 12/12/ | Office | [place] [facility] | RodríguezFaith gallego | Pain medication | | 2018 | Visit | [facility] | D, WHARF WORKER ONE | agreement (Primary | | | | [facility] [address] | [facility] | Dx); Thrush, oral; | | | | [facility], | [place] [address] | Other osteoarthritis | | | | [place] [address] | [phone] | of spine, lumbar | | | | [phone] | | region | +--------+---------+ + + + Social [...] + + + | Blood Pressure | 148/60 | 12/12/2017 1:08 PM | | | | | PST | | + + + + + | Pulse | 53 | 12/12/2017 1:08 PM | | | | | PST | | + + + + + | Temperature | - | - | | + + + + + | Respiratory Rate | - | - | | + + + + + | Oxygen Saturation | 95% | 12/12/2017 1:08 PM | | | | | PST | | + + + + + | Inhaled Oxygen | - | - | | | Concentration | | | | + + + + + | Weight | 64.5 kg (142 lb 3.2 | 12/12/2017 1:08 PM | | | | oz) | PST | | + + + + + | Height | 175.3 cm (5' 9") | 12/12/2017 1:08 PM | | | | | PST | | + + + + + | Body Mass Index | 21 | 12/12/2017 1:08 PM | | | | | PST | | + + + + + documented in this encounter Patient Instructions Patient Instructions Shannen Janice L - 12/12/2017 1:55 PM PSTFormatting of this note mi ght be different from the original. Laxmi Infection: Thrush Thrush is a type of fungal infection in the mouth and throat. Thrush does not usually affec t healthy adults. It is more common in people with a weakened immune system. It is also more likely if you take antibiotics. Thrush is normally not contagious. Understanding fungus in the mouth and throat Your mouth and throat normally contain millions of tiny organisms. These include bacteria a nd yeasts. Many of these do not cause any problems. In fact, they may help fight disease. Yeasts are a type of fungus. A type of yeast called Laxmi normally lives on your skin. It is also found on the membranes of your mouth and throat. Usually, this yeast grows only in small amounts and is harmless. But in some cases, Laxmi can grow out of control and cause thrush. Thrush is related to other kinds of Laxmi infections that can grow all over the jamir dy. Thrush refers to an infection of only the mouth and throat. What causes thrush? Thrush happens when something lets too much Laxmi grow inside your mouth and throat. Cert ain things that change the normal balance of organisms in the mouth can lead to thrush. One example is antibiotic medicine. This medicine may kill some of the normal bacteria in your m outh. Laxmi can then grow freely. People on antibiotics have an increased risk for thrush. You have a higher risk for thrush if you: Wear dentures Are getting chemotherapy Are getting radiation therapy Have diabetes Have a transplanted organ Use corticosteroids Have a weakened immune system, such as from AIDS Are an older adult Symptoms of thrush Some people with thrush do not have any symptoms. Symptoms of thrush can include: A dry, cottony feeling in your mouth Loss of taste Pain while eating or swallowing White or red patches inside your mouth or on the back of your throat Diagnosing thrush Your health care provider will ask about your medical history and your symptoms. He or she will look closely at your mouth and throat. White or red patches will be scraped with a tong ue depressor. The sample will be sent to a lab to test. This test can usually confirm thrush . If you have thrush, you may also have esophageal candidiasis. This is common in people who have HIV. Your health care provider may check for this condition with an upper endoscopy. Th is is a procedure to look at the esophagus. A tissue sample may be taken to test. Treatment for thrush It is important to treat thrush early. Untreated, it may turn into a more serious form of w idespread infection. Thrush is usually treated with antifungal medicine. The medicine is put directly in your mouth and throat. You may be given a swish and swallow medicine or a n antifungal lozenge. In some cases, you may need an antifungal pill. This can remove Laxmi throughout your bod y. Or you may need medicine through an IV. These treatments depend on how severe your infect ion is, and what other health conditions you have. If you are at high risk for thrush, you may need to keep taking oral antifungal medicine. T his is to help prevent thrush in the future. What happens if you don t get treated for thrush? If untreated, the Laxmi may spread throughout your body. They may even enter your bloodst ream. This can cause serious problems, such as organ failure and even . Bloodstream inf ection may need to be treated with high doses of antifungal medicine through an IV. Systemic infection is much more likely in people who are very ill. It is also more common i n those who have serious problems with their immune system. Additional risk factors for syst emic infection in very ill people include: Central venous lines IV nutrition Broad-spectrum antibiotics Kidney failure Recent surgery Preventing thrush You may be able to help prevent some cases of thrush. Make sure to: Practice good oral hygiene. Try using a chlorhexidine mouthwash. Clean your dentures regularly as instructed. Make sure they fit you correctly. After using a corticosteroid inhaler, rinse out your mouth with water or mouthwash. Do not use broad-spectrum antibiotics, if possible. Get treated for health problems that increase your risk for thrush, such as diabetes. When to call the health care provider Call your health care provider right away if you have any of these: Cottony feeling in your mouth Loss of taste Pain while eating or swallowing White or red patches inside your mouth or on the back of your throat Date Last Reviewed: 01/08/201519999323-7[address] [employer] [place] [address]. All righ ts reserved. This information is [...] quit within a month, and do it. [place] to your quit plan Talk to your [...] Track your triggers What gives you that B-rpee-r-cigarette feeling? List all the situations that make [...] wants to stop smoking. Date Last Reviewed: 04/22/201619993554-[address] [employer] [place] [address], [place] [address]. All righ ts reserved. This information is not intended as a substitute for professional medical care. Always follow your healthcare professional's instructions. How to Quit Smoking Smoking is one of the hardest habits to break. About half of allpeople who have ever smok ed have been able to quit. Most peoplewho still smoke want to quit. Here are some of the b est ways to stop smoking. Keep trying Most smokers make many attempts at quitting before they are successful. It s important no t to give up. Go cold turkey Mostformer smokers quit cold turkey (all at once). Trying to cut back gradually doesn't s eem to work as well, perhaps because it continues the smoking habit. Also, it is possible to inhale more while smoking fewer cigarettes. This results in the same amount of nicotine in your body. Get support Support programs can be a big help, especially for heavy smokers. These groups offer lectur es, ways to change behavior, and peer support. Here are some ways to find a support program: Free national quitline: 744-IJVA-FUC (068-553-1430). Hospital quit-smoking programs. [employer] Lung Association: (437.339.5981). [employer] Cancer Society (769-566-1263). Support at home is important too. Nonsmokers can offer praise and encouragement. If the smo ker in your life finds it hard to quit, encourage them to keep trying. Tnzy-hdr-egzqzbi medicines Nicotine replacement therapymay make quittingeasier. Certain aids, such as the nicotine patch, gum, and lozenges, are available without a prescription. Itis best to use these un alexandre a doctor s care, though. The skin patch provides a steady supply of nicotine. Nicotine gum and lozenges givetemporary bursts of low levels of nicotine. Both methods reduce the craving for cigarettes. Warning: If youhave nausea, vomiting, dizziness, weakness, or a fa st heartbeat, stop using these products and see your doctor. Prescription medicines After reviewingyour smoking patterns and past attempts to quit, your doctor may offer a p rescription medicine such as bupropion, varenicline, a nicotine inhaler, or nasal spray. Eac h has advantages and side effects. Your doctor can review these with you. Health benefits of quitting The benefits of quitting start right away and keep improving the longer you go without smok ing.These benefits occur at any age. So whether you are 17 or 70, quitting is a good dec ision. Some of the benefits include: 20 minutes: Blood pressure and pulse return to normal. 8 hours: Oxygen levels return to normal. 2 days: Ability to smell and taste begin to improve as damaged nerves regrow. 2 to 3 weeks: Circulation and lung function improve. 1 to 9 months: Coughing, congestion, and shortness of breath decrease; tiredness decreas es. 1 year: Risk of heart attack decreases by half. 5 years: Risk of lung cancer decreases by half; risk of stroke becomes the same as a non smoker s. For more on how to quit smoking, try these online resources: Smokefree.gov "Clearing the Air" booklet from the National Cancer [place]: smokefree.gov/sites/defau lt/files/pdf/sdqyqfcn-frq-kuh-accessible.pdf Date Last Reviewed: 12/21/201619990555-0248 [employer]. [address] [place] [address]. All righ ts reserved. This information is not intended as a substitute for professional medical care. Always follow your healthcare professional's instructions. Acupuncture Acupuncture is an ancient form of Traditional [place] Medicine (TCM). Behind this treatment is the belief that energy, also known as "Qi," flows through the body. It is thought that h ealth is optimized when the flow of life energy is balanced. Improved energy flow Acupuncturists focus on a vital energy called Qi(pronounced "gagandeep").They believe that Q i flows through a complex network of pathways (also referred to as meridians or channels). T hin needles are inserted into the body at precise locations called acupoints. This is though t to help the body unblock channels and improve the flow of Qi.Depending on which acupoint is targeted, the health effect may be different. In some cases, certain herbs are burned in a controlled manner near or over an acupoint. Using herbs in this manner is called moxibust ion. Acupuncturists are trained to spot problems with Qiflow early to prevent future problems. They maydo this by asking health questions, checking your pulse at the wrist, and by look ing at your tongue. Using this diagnostic process helps them locate a problem sometimes even before you can tell that something is wrong. Why seek this care? TheNational Institutes of Health (NIH), as well as the World Health Organization (WHO), h as said that acupuncture may be helpful for treating certain conditions. These include addic tion withdrawal, pain, nausea, hay fever, high blood pressure, and various other health prob lems. Acupuncturists will often treat an even wider range of conditions. For instance, acupu ncture may be done to treat anxiety disorders or depression, digestive problems, headaches, and much more. Questions for the load manager Before you decide whether to have acupuncture to treat a health problem, talk with an acupu ncturist. Asking him or her some of these questions may help you make an informed decision: What is your training? How long have you been practicing? What risks do I need to know about? Have you treated problems like mine? What will a typical visit be like? Do you use disposable needles? Will I feel the needles? How long will treatment take and how much will it cost? Will my insurance pay for your services? Resources Research acupuncture in your local library, on the Internet, or by contacting: [employer] Association of Acupuncture and Exline Medicine www.aaaomonline.org National Certification Commissionfor Acupuncture and Exline Medicine www.nccaom.org Japanese Academy of Medical Acupuncture www.medicalacupuncture.org Date Last Reviewed: 01/21/201719992140-[address] [employer] [place] [address]. All righ ts reserved. This information is not intended as a substitute for professional medical care. Always follow your healthcare professional's instructions. Complementary Care for Pain You may find pain relief with complementary care. Look for a licensed or certified professi onal. And always tell your healthcare professional that you are using complementary care. Massage Massage can increase circulation and relaxation. This can help relieve stress and pain. Biofeedback Biofeedback uses instruments to measure the body's physiological activity, like heart rate and muscle activity. This information is used to help you learn to control certain functions , such as relaxing muscles and helping reduce pain. Chiropractic Chiropractic adjusts the spine and joints. It may help reduce back, neck, or joint pain. Ch iropractic may also use mild electrical stimulation, massage, heat, or ultrasound (sound wav es). Acupuncture Acupuncture uses thin needles to help treat pain. The treatment may release the body s ow n painkillers. Distraction Distraction helps you focus on something besides pain. Try reading a book, watching a movie , or talking with family. Or visit a local attraction. Meditation Meditation helps you focus on words, objects, or ideas. Doing this can calm you and decreas e stress. Relaxation Relaxation includes methods like listening to soothing music or relaxation tapes. You might try slow, deep breathing. Imagine a calm scene, like an ocean or mountain, as you breathe. Date Last Reviewed: 02/20/201719997109-7290 [employer]. [address] [place] [address], [place] [address]. All righ ts reserved. This information is not intended as a substitute for professional medical care. Always follow your healthcare professional's instructions. documented in this encounter Progress Notes Faith Rodríguez NP - 12/12/2017 1:00 PM PST APSO PROGRESS NOTE Pt. Name/Age/: Saturnino Avila 72 y.o. 1945 Med. Record Number: [id number] Assessment and Plan: 1. Pain medication agreement Will send referral for acupuncture. Rx for #120 hydrocodone 2. Thrush, oral - nystatin (MYCOSTATIN) 100,000 units/mL suspension; Swish and swallow 5 ml four times brian y up to 48 hours after symptoms resolve Indications: Candidiasis Fungal Infection of the Or opharynx Dispense: 473 mL; Refill: 0 Pain Management A-.Pain Contract entered between Saturnino Avila and SANDER MITCHELL B -Risks and benefits reviewed with patient [email or web address] D-Patient & Providers responsibilities discussed E-Face to Face needed every 90 days/q 3 months Follow-up with PCP or WHARF WORKER monthly for 1 month then every 3 months 1. Pain medication agreement 2. Thrush, oral nystatin (MYCOSTATIN) 100,000 units/mL suspension 3. Other osteoarthritis of spine, lumbar region HYDROcodone-acetaminophen (NORCO) 5-325 mg per tablet Patient [...] s een and examined. Saturnino is in today. He had reported to the police that his pain medication was stolen and bre toure submitted a police report. Nothing else was stolen including a gun or his muscle relaxant s. He states he has made changes so it would be harder to break in. He needs a refill sent for his narcotic medications monthly. He states he still has a few left as he has been cut ting his pills in half and taking 2 instead of 4. I explained that I have to see him every 3 months for his narcotic medications. His pain is worst in his low back. He had a UA and labs last month. He states he will get labsnext month again. He sees a medical records manager on Dec. His weight is up a little. He has been taking Ensure. No pain in his stomach. He is having regular bowel movements. He has tried lozenges, patches, Wellbutrin, Chantix to try to stop smoking, but he is still smoking. He is interested in acupuncture for smoking cessation. Will send referral for ac upuncture after I check with his [facility] case[facility] to see where to refer him. Review of Systems Constitutional: Positive for chills (when he goes out in the weather.). Negative for fever. HENT: Negative for sore throat. Respiratory: Positive for sputum production (the last couple of months). Gastrointestinal: Negative for constipation and diarrhea. Skin: Negative for rash. Neurological: Feet get numb. Drowsiness: no FUNCTION General Activity:7 (With 10 being the most active possible) Mood:6 Walking Ability:8 Normal Work:7 Relationships:9 Sleep:6 GOALS Opioid Agreement: Patient is on a Opioid agreement See agreement enacted on July 24, 2017 Pain Management Agreement / Material Risk Notice Narcotic Controlled Substances - [place] 'Intractable pain' means that you have a [...] Medical Condition: 1. Pain medication agreement 2. Thrush, oral nystatin (MYCOSTATIN) 100,000 units/mL suspension 3. Other osteoarthritis of spine, lumbar region HYDROcodone-acetaminophen (NORCO) 5-325 mg per tablet Specialist Consulted? no Pharmacy Restriction Patient will get refills of medicine(s) [facility]: [facility] [facility] [address] Goals and Alternatives Your goals from therapy are to reduce your pain to a level that will allow you to do the fo rachelg: Helps him move around better. He takes at 4 different times. Alternatives or additions to this therapy are: Acupuncture - He would be interested in this if the [facility] would pay for. He says it used to b e available at the [facility] by appointment and he is interested in going there if so (to help with smoking cessation) (Sara Ly [phone]) Massage Physical Therapy - He has had in the past. Pain Classes - He has had in the past. Yoga Counseling TENS Unit TERMS OF AGREEMENT There are certain rules that apply to patients receiving opioid medications for chronic hans n conditions from [facility]. If I prescribe these medications for you, you ne ed to agree to the following terms: 1. I will not seek opioid (narcotic) medications from any other doctor, dentist, clinic, ergency room, hospital or friends/relatives. I will [...] provider or covering doctor 48 hours in [facility] and during business hours. I will [...] be reliably predicted. 8. TOLERANCE - with long term care administrator use, an increased amount of the same [...] to understand treatments/procedures/educational materials }No Objective: Vitals: 12/12/17 1308 BP: 148/60 Pulse: 53 PainSc: 7 PainLoc: Back Physical Exam Constitutional: He is oriented to person, place, and time. He appears well-developed and we ll-nourished. No distress. HENT: Head: Normocephalic and atraumatic. Right Ear: External ear and ear canal normal. A middle ear effusion is present. Left Ear: Tympanic membrane, external ear and ear canal normal. Mouth/Throat: Oral lesions (Thrush present on tongue) present. Posterior oropharyngeal eryt martin present. Cardiovascular: Normal rate and regular rhythm. Pulmonary/Chest: Effort normal. Diminished in left lower lobe of the lung. Musculoskeletal: Lumbar back: He exhibits tenderness and pain. He has pain to palpation of end of thoracic and lumbar spine. No pain in pelvis. Pain ove r right SI joint. He has pain with rotation at waist. Arching back is painful as is forwar d flexion. Neurological: He is alert and oriented to person, place, and time. He has normal strength. Reflex Scores: Patellar reflexes are 0 on the right side and 1+ on the left side. Achilles reflexes are 0 on the right side and 1+ on the left side. Skin: Skin is warm and dry. He has healing cat claw wiggins on hands and wrists Psychiatric: He has a normal mood and affect. His behavior is normal. Judgment and thought content normal. Current Medications: albuterol vitamin B complex Calcium Carb-Cholecalciferol capsaicin carvedilol clopidogrel cyclobenzaprine EPINEPHrine auto-injector fluocinonide gabapentin [START ON 01/19/2018] HYDROcodone-acetaminophen lisinopril nitroglycerin ENSURE PLUS HN nystatin omeprazole prazosin simvastatin tiotropium-olodaterol traZODone No orders of the defined types were placed in this encounter. Electronically signed by: SANDER MITCHELL 12/16/2017 0:21 No results found for this or any previous visit (from the past 24 hour(s)). Entered by VIRGINIA Paetl, acting as scribe for SANDER Mitchell. The documentatio n recorded by the scribe accurately reflects the service I personally performed and the deci sions made by me. documented in this encounter Plan of Treatment Not on filedocumented as of this encounter Visit Diagnoses + + | Diagnosis | + + | Pain medication agreement - Primary Encounter for long-term (current) use of other | | medications | + + | Thrush, oral Candidiasis of mouth | + + | Other osteoarthritis of spine, lumbar region | + + documented in this encounter
--- OUTSIDE RECORDS SUMMARY | ~2019-09-01 | XMS | Encounter Summary ---
Demographics + + + | Address | [address] | | | [place] [address] | + + + | Home Phone [...] | Author | [facility] | | | and [place]obar[place] | + + + | Organization | [facility] | | | and [...] Team Providers + +------+ + | Care Mud Worker Name | Role | Phone | [...] medication | | 2018 | Visit | [facility] | D, PROCEDURE RN ONE | agreement (Primary | | | | PRIMARY CARE [address] | [facility] [place] | Dx); Thrush, oral; | | | | [facility], | [place] [address] | Other osteoarthritis | | | | [place] [address] | [phone] | of spine, lumbar | | | | [phone] | | region | +--------+---------+ + + [...] back of your throat Date Last Reviewed: 01/08/201519993761-4444 The [employer]. [address] [place] [address]. All righ ts reserved. This information is [...] quit within a month, and do it. [place] to your quit plan Talk to your [...] Track your triggers What gives you that I-zatq-m-cigarette feeling? List all the situations that make [...] wants to stop smoking. Date Last Reviewed: 04/22/201619994686-[address] [place] [address], [place] [address]. All righ ts reserved. This information is [...] find a support program: Free national quitline: 939-TZRI-KTJ (553-437-7303). Hospital quit-smoking programs. Chinese Lung Association: (478.767.1490). Chinese Cancer Society (521-795-3902). Support at home is important too. Nonsmokers can offer praise and encouragement. If the smo ker in your life finds it hard to quit, encourage them to keep trying. Xazc-khk-raxyvfq medicines Nicotine replacement therapymay make quittingeasier. Certain [...] the Air" booklet from the National Cancer [place]: smokefree.gov/sites/defau lt/files/pdf/xjnybebg-qxi-enm-accessible.pdf Date Last Reviewed: 12/21/201619997198-6616 The [employer]. [address] [place] [address]. All righ ts reserved. This information is not intended as a substitute for professional medical care. Always follow your healthcare professional's instructions. Acupuncture Acupuncture is an ancient form of Traditional Irish Medicine (TCM). Behind this treatment is the [...] headaches, and much more. Questions for the director of assisted living Before you decide whether to have acupuncture [...] library, on the Internet, or by contacting: Chinese Association of Acupuncture and [place] [facility] www.aaaomonline.org National Certification Commissionfor Acupuncture and [place] [facility] www.nccaom.org Chinese Academy of Medical Acupuncture www.medicalacupuncture.org Date Last Reviewed: 01/21/201719994344-[address] [place] [address]. All righ ts reserved. This information is [...] mountain, as you breathe. Date Last Reviewed: 02/20/201719994768-3750 The [employer]. [address] [place] [address], [place] [address]. All righ ts reserved. This information is not intended as a substitute for professional medical care. Always follow your healthcare professional's instructions. documented in this encounter Progress Notes Faith Rodríguez NP - 12/12/2017 1:00 PM PST APSO PROGRESS NOTE Pt. Name/Age/: Saturnino Avila 72 y.o. 1945 Med. Record Number: [id number] Assessment and Plan: 1. Pain medication agreement [...] days/q 3 months Follow-up with PCP or PROCEDURE RN monthly for 1 month then every 3 [...] get labsnext month again. He sees a gyroscope technician on Dec. His weight is up a little. He has been taking Ensure. No pain in his stomach. He is having regular bowel movements. He has tried lozenges, patches, Wellbutrin, Chantix to try to stop smoking, but he is still smoking. He is interested in acupuncture for smoking cessation. Will send referral for ac upuncture after I check with his [facility] case resource manager to see where to refer him. Review [...] Material Risk Notice Narcotic Controlled Substances - [place] 'Intractable pain' means that you have a [...] get refills of medicine(s) from: [facility] [place] [facility] [facility] [address] Goals and Alternatives Your goals from therapy are to reduce your pain to a level that will allow you to do the fo rachelg: Helps him move around better. He takes at 4 different times. Alternatives or additions to this therapy are: Acupuncture - He would be interested in this if the [place] would pay for. He says it used to b e available at the [facility] by appointment and he is interested in going there if so (to help with smoking cessation) (Sara Ly [phone]) Massage Physical Therapy - He has had in the past. Pain Classes - He has had in the past. Yoga Counseling TENS Unit TERMS OF AGREEMENT There are certain rules that apply to patients receiving opioid medications for chronic hans n conditions from [facility]. If I prescribe these medications [...] provider or covering doctor 48 hours in [facility] and during business hours. I [...] be reliably predicted. 8. 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
--- OUTSIDE RECORDS SUMMARY | ~2019-09-01 | XMS | Encounter Summary ---
Demographics + + + | Address | [address] | | | [place] [address] | + + + | Home Phone | | + + + | Preferred Language | Unknown | + + + | Marital Status | | + + + | Nondenominational Affiliation | Unknown | + + + | Race | Unknown | + + + | Ethnic Group | Unknown | + + + Author + + + | Author | [facility] | | | and [place]obar[place] | + + + | Organization | [facility] | | | and [...] Providers + +------+ + | Care Academic Affairs Director Name | Role | Phone | [...] | | [place] | [place] [address] | | | | | [address] | [phone] | | | | | [phone] | | | +--------+ + + + [...]
--- OUTSIDE RECORDS SUMMARY | ~2019-09-01 | XMS | Encounter Summary ---
Demographics + + + | Address | [address] | | | [place] [address] | + + + | Home Phone [...] Author | [facility] | | | and [place]obar[place] | + + + | Organization | [facility] | | | and [place] | + + + | Address | Unknown | + + + | Phone | Unavailable | + + + Support + + +---------+ + | Name | Relationship | Address | Phone | + + +---------+ + | Salnia Purdy | ECON | Unknown | | + + +---------+ + Care Team Providers + +------+ + | Care Radiation Therapy Technologist Name | Role | Phone | [...] | | | THERAPY [address] | [facility] [place] | | | | | [address] [place], [place] | [place] [address] | | | | | [address] | [phone] | | | | | [phone] | | | +--------+ + + + [...]
--- OUTSIDE RECORDS SUMMARY | ~2019-09-01 | XMS | Encounter Summary ---
Demographics + + + | Address | [address] | | | [place] [address] | + + + | Home Phone [...] Author | [facility] | | | and Escobar[place] | + + + | Organization | [facility] | [...] Team Providers + +------+ + | Care Pet Food Deboner Name | Role | Phone | + [...] Medication Refill | | 2019 | | [facility] | LETTY [address] | | | | | PRIMARY CARE [address] | [facility], | | | | | [facility], | [place] [address] | | | | | [place] [address] | [phone] | | | | | [phone] | | | +--------+--------+ + + + [...]
--- OUTSIDE RECORDS SUMMARY | ~2019-09-01 | XMS | Encounter Summary ---
Demographics + + + | Address | [address] | | | [place] [address] | + + + | Home Phone [...] | [facility] | | | and [place] | + + + | Organization | [facility] | | | and [...] Team Providers + +------+ + | Care Blasting Worker Name | Role | Phone | + +------+ + | Faith Rodríguez HERBARIUM CURATOR | PCP | | + +------+ + [...] | | | | | Pulmonary | [place] | [facility] | | | | | nodules | MD Nitin | IMAGING [address] | | | | | Tobacco | [address] | | | | | dependence | JOSE J | [place] | | | | | Procedures | [place], | [address] | | | | | PET CT Skull | [place] [address] | Phone: | | | | | Base To Mid | Phone: | [phone] | | | | | Thigh | [phone] | Fax: | | | | | | Fax: | [phone] | | | | | | [phone] | | +--------+--------+ + + + + [...] | | | Pulmonary | Jcarlos | [facility] | | | | | nodules | MD Nitin | IMAGING [address] | | | | | Tobacco | [address] | | | | | dependence | JOSE J | [place] | | | | | Procedures | [place], | [address] | | | | | PET CT Skull | [place] [address] | Phone: | | | | | Base To Mid | Phone: | [phone] | | | | | Thigh | [phone] | Fax: | | | | | | Fax: | [phone] | | | | | | [phone] | | +--------+--------+ + + + + [...] | | [place] | [place] [address] | | | | | [address] | [phone] | | | | | [phone] | | | +--------+ + + + [...]
--- OUTSIDE RECORDS SUMMARY | ~2019-09-01 | XMS | Encounter Summary ---
Demographics + + + | Address | [address] | | | [place] [address] | + + + | Home Phone [...] Author | [facility] | | | and [place] | + + + | Organization | [facility] | | | and [...] Team Providers + +------+ + | Care Sas Developer Name | Role | Phone | + +------+ + | Faith Rodríguez NP | PCP | | + +------+ + Encounter Details +--------+ + + + + | Date | Type | Department | Care Team | Description | +--------+ + + + + | 03/08/ | Abstract | [place] [facility] | Janice Pride | | | 2017 | | [facility] | | | | | | PRIMARY CARE [address] | | | | | | [facility], [place], | | | | | | [place] [address] | | | | | | [phone] | | | +--------+ + + + [...]
--- OUTSIDE RECORDS SUMMARY | ~2019-09-01 | XMS | Encounter Summary ---
Demographics + + + | Address | [address] | | | [place] [address] | + + + | Home Phone [...] | Author | [facility] | | | and [place] | + + + | Organization | [facility] | | | and [...] Team Providers + +------+ + | Care Copper Plate Lithographer Name | Role | Phone | + [...] Medication Refill | | 2019 | | [facility] | LETTY [address] | | | | | PRIMARY CARE [address] | [facility], | | | | | [place] [facility], | [place] [address] | | | | | [place] [address] | [phone] | | | | | [phone] | | | +--------+--------+ + + + [...]
--- OUTSIDE RECORDS SUMMARY | ~2019-09-01 | XMS | Encounter Summary ---
Demographics + + + | Address | [address] | | | [place] [address] | + + + | Home Phone | | + + + | Preferred Language | Unknown | + + + | Marital Status | | + + + | Presybeterian Affiliation | Unknown | + + + | Race | Unknown | + + + | Ethnic Group | Unknown | + + + Author + + + | Author | and [facility] | | | and [place] | + + + | Organization | [facility] | | | and [...] Team Providers + +------+ + | Care Therapeutic Mentor Name | Role | Phone | + [...] of | | 2019 | Visit | [facility] | DNP [address] | finger, initial | | | | PRIMARY CARE [address] | [place] [address] | encounter (Primary | | | | [facility], | [phone] | Dx); Chronic | | | | [place] [address] | | obstructive | | | | [phone] | | pulmonary disease, | | | | | | unspecified COPD | | | | | | type ([facility]); Stable | | | | | | angina pectoris | | | | | | ([facility]) | +--------+---------+ + + + Social History [...] drainage. The [facility] after the bite incident. While the finger [...] & Cleansers Swelling Rash/swelling Uncoded Nonscreenable Allergen [place], patient states he gets red spots and [...]
--- OUTSIDE RECORDS SUMMARY | ~2019-09-01 | XMS | Encounter Summary ---
Demographics + + + | Address | [address] | | | [place] [address] | + + + | Home Phone [...] | Author | [facility] | | | and [place] | + + + | Organization | [facility] | | | and [place] [...] Team Providers + +------+ + | Care Transfill Technician Name | Role | Phone | + +------+ + PCP | Unavailable | + +------+ + Encounter Details +--------+ + + + + | Date | Type | Department | Care Team | Description | +--------+ + + + + | 05/30/ | Hospital | [place] [facility] | Faith Rodríguez | | | 2017 | Encounter | HOSPITAL XRAY [address] | D, BUSINESS SYSTEMS ADMINISTRATOR ONE | | | | | SHANE [place] | [facility] [place] | | | | | [place] | [place] [address] | | | | | [address] | [phone] | | | | | [phone] | | | +--------+ + + + [...] thyroid | | | biopsy. JOB #: [id number] Digitally Released by: Faye Quintero | | [...] | | | | | JOB #: [id number] | | Digitally Released by: Faye Quintero | | | | | | Read By: FAYE QUINTERO MD | | Date: 05/30/2017 08:43 | | | + + documented in this encounter Visit Diagnoses Not on filedocumented in this encounter"
--- OUTSIDE RECORDS SUMMARY | ~2019-09-01 | XMS | Clinical Summary ---
Demographics + + + | Address | [address] | | | [place] [address] | + + + | Home Phone | | + + + | Preferred Language | Unknown | + + + | Marital Status | | + + + | Islam Affiliation | Unknown | + + + | Race | Unknown | + + + | Ethnic Group | Unknown | + + + Author + + + | Author | [facility] | | | and [place] | + + + | Organization | [facility] | | | and [...] Team Providers + +------+ + | Care Planing Machine Operator Name | Role | Phone [...] | Uncoded | | | 03/22/20 | [place], patient | | Nonscreenable | | | [...] | | | | type ([facility]) | | | | | | [...] has recently left the practice. Taking 4-6 [place] | | daily. Patient wishes to continue pain regimen for her would | | like to increase Barry[place] from 4-6 daily to better control pain. [...] Last Assessment & Plan: 3 prescriptions of Barryton printed and | | sent to [facility] [...] care plan with David Palmer PA-C at [facility] | | Clinic today. | + + [...] Specialist: | | | | | | [phone] | | | | | | [...] Diagnostics | | | | | | [facility] | | | | | | [place]. [...] Diagnostics | | | | | | [facility] | | | | | | Kathia Pastor M.D., | | | | | | Ph.D., Laboratory | | | | | | Director [address] | | | | | | [facility] | | | | | | [place] [address] | | | | | | CLIA #[id number] | | | | + + + + + + + + | Specimen | + + | Urine | + + + + + + + | Performing | Address | City/State/Zipcode | Phone Number | | Organization | | | | + + + + + | REFERENCE LAB | [address] [facility] | [place], [place] | | | [facility] - | | [address] | | | [place]AH [place] | | [...] - 1.030 | [place] | | | [place] | | | RONDE | | | [...] | Nitrite, | Negative | Negative | [place] | | | Urine | | | [...] + + | [place] [facility] | [address] | [place] [address] | [phone] | | HOSPITAL LABORATORY | | | [...] +---------+--------+ | VETERANS ADMIN | [place]ETER[place] | [id number] | | | | Indemn | | | NS | | 018-Pr | | | ity | | | ADMIN | | esent | | | | | | [place] | | | | | | | | [place] | | | | | | + +--------+ +--------+ +---------+--------+ | [place] ADMIN | [place] | [id number] | 09/21/ | | | Indemn | | | CHOICE | | 2014-P | | | ity | | | PC3 | | resent | | | | + +--------+ +--------+ +---------+--------+ | [place] ADMIN | [place] | [id number] | 05/23/20 | | | Indemn | | | CHOICE | | 17-Pre | | | ity | | | PC3 | | sent | | | | + +--------+ +--------+ +---------+--------+ | MEDICARE | MEDICA | [id number] | 12/26/19 | [phone] | | Medica [...] Person | Self | [birth year] | [address] | | | al/Fam | | 1945 | [phone] | [place] [address] | | | dominique | | | 7 (Home) | | + +--------+ +--------+ + + | [place] Avila | Person | Self | [birth year] | | [address] | | | al/Fam | | 1945 | [phone] | [place] [address] | | | dominique | | | 7 (Home) | | + +--------+ +--------+ + + Advance Directives + + + + + | Type | Date Recorded | Patient | Explanation | | | | Employment Manager | | + + + + + | Power of | | | | | Forder Operator | | | | + + + + + | Advance | 05/08/2019 2:24 | | | | Directive | PM | | | + + + + +
--- OUTSIDE RECORDS SUMMARY | ~2019-09-01 | XMS | Encounter Summary ---
Demographics + + + | Address | [address] | | | [place] [address] | + + + | Home Phone [...] | Author | [facility] | | | and [place] | + + + | Organization | [facility] | | | [...] Team Providers + +------+ + | Care Quill Machine Tender Name | Role | Phone | [...] | PRIMARY CARE [address] | [place], | | | | | [place], | [place] [address] | | | | | [place] [address] | [phone] | | | | | [phone] | | | +--------+ + + + [...]
--- OUTSIDE RECORDS SUMMARY | ~2019-09-01 | XMS | Encounter Summary ---
Demographics + + + | Address | [address] | | | [place] [address] | + + + | Home Phone [...] | Author | [facility] | | | and [place] | + + + | Organization | [facility] [...] Team Providers + +------+ + | Care Motion Graphics Artist Name | Role | Phone | + [...] | PRIMARY CARE [address] | [place], | | | | | [place], | [place] [address] | | | | | [place] [address] | [phone] | | | | | [phone] | | | +--------+ + + + [...]
--- OUTSIDE RECORDS SUMMARY | ~2019-09-01 | XMS | Encounter Summary ---
Demographics + + + | Address | [address] | | | [place] [address] | + + + | Home Phone [...] + | Author | [facility] | | | and [place] | + + + | Organization | [facility] | | [...] Team Providers + +------+ + | Care Policy Cancellation Clerk Name | Role | Phone | + [...] | PRIMARY CARE [address] | [place], | | | | | [place], | [place] [address] | | | | | [place] [address] | [phone] | | | | | [phone] | | | +--------+ + + + [...] 08/13/2018 2:31 PM PDTReceived 08-20-18 by : [facility] agentE lectronically signed by Rosalia Harmon at 08/30/2018 10:47 AM PSTRosalia Harmon - 08/13 2:31 PM PDTHydrocodone 5-325 mg qty 112 Certified mail to: N[place] Redmond [place] [address] [place] [address] Tracking number: [id number] signed by Rosalia Harmon at 08/13/2018 2:33 PM PDTdoc umented in this encounter Plan of Treatment Not on filedocumented as of this encounter Visit Diagnoses Not on filedocumented in this encounter"
--- OUTSIDE RECORDS SUMMARY | ~2019-09-01 | XMS | Encounter Summary ---
Demographics + + + | Address | [address] | | | [place] [address] | + + + | Home Phone [...] | [facility] | | | and [place] | + + + | Organization | [facility] | | [...] Providers + +------+ + | Care Education Courses Sales Representative Name | Role | Phone | + +------+ + | Aric Pamler PCP | | | PA-C | | [...] Procedures | PA-C [address] | [place] [address] | | | | | CT Chest wo | [address] | Phone: | | | | | [address] CT | [place], [place] | [phone] | | | | | Chest | [address] | Fax: | | | | | Abdomen wo | Phone: | [phone] | | | | | Contrast | [phone] | | | | | | | Fax: | | | | | | | [phone] | | +--------+--------+ + + + + [...] Procedures | PA-C [address] | [place] [address] | | | | | CT Chest wo | [address] | Phone: | | | | | Contrast CT | [place], [place] | [phone] | | | | | Chest | [address] | Fax: | | | | | Abdomen wo | Phone: | [phone] | | | | | Contrast | [phone] | | | | | | | Fax: | | | | | | | [phone] | | +--------+--------+ + + + + [...] | | | SHANE [place] | [facility]ET [facility], | | | | | [place], [place] | [place] [address] | | | | | [address] | [phone] | | | | | [phone] | | | +--------+ + + + [...] | | | of spine, lumbar | [address] [place] | | | | | | region | [address] | | | | | + + [...] | | | | type ([facility]) | | | | | | + [...]
--- OUTSIDE RECORDS SUMMARY | ~2019-09-01 | XMS | Encounter Summary ---
Demographics + + + | Address | [address] | | | [place] [address] | + + + | Home Phone [...] | [facility] | | | and [place] | + + + | Organization | [facility] [...] Team Providers + +------+ + | Care Food And Beverage Intern Name | Role | Phone | [...] | MED CTR EXTERNAL | MD [address] | | | | | IMAGING | [place] | | | | | [phone] | [place] [address] | | +--------+ + + + + [...] for comparison only - no result from [place]. | [facility] | + + + + +---------+ + + | Performing | Address | City/State/Zipcode | Phone Number | | Organization | | | | + +---------+ + + | [facility] | | | | + +---------+ + + documented in this encounter Visit Diagnoses Not on filedocumented in this encounter"
--- OUTSIDE RECORDS SUMMARY | ~2019-09-01 | XMS | Encounter Summary ---
Demographics + + + | Address | [address] | | | [place] [address] | + + + | Home Phone [...] | Author | [facility] | | | and [place] | + + + | Organization | [facility] | [...] Team Providers + +------+ + | Care Insurance Service Representative Name | Role | Phone | [...] + | 10/12/ | Telephone | [facility] | Deangelo Little | Other (records sent) | | 2017 | | [address]INC[address] | MD Brendan [address] | | | | | [place], | [address] [place] | | | | | [place] [address] | [place] [address] | | | | | [phone] | [phone] | | | | | | | [...]
--- OUTSIDE RECORDS SUMMARY | ~2019-09-01 | XMS | Encounter Summary ---
Demographics + + + | Address | [address] | | | [place] [address] | + + + | Home Phone [...] | Author | [facility] | | | and [place] | + + + | Organization | [facility] | | [...] Team Providers + +------+ + | Care Roadmaster Name | Role | Phone | + [...] | Other | | 2018 | | [facility] | D, ON SITE COORDINATOR ONE | | | | | PRIMARY CARE [address] | [facility] | | | | | [facility], | [place] [address] | | | | | [place] [address] | [phone] | | | | | [phone] | | | +--------+ + + + [...]
--- OUTSIDE RECORDS SUMMARY | ~2019-09-01 | XMS | Encounter Summary ---
Demographics + + + | Address | [address] | | | [place] [address] | + + + | Home Phone [...] | Author | [facility] | | | and Escobarana | + + + | Organization | [facility] | [...] Team Providers + +------+ + | Care Biomedical Engineering Technician Name | Role | Phone | + +------+ + | Aric Palmer | PCP | | | LETTY | | | + +------+ + Reason for Visit + + + | Reason | Comments | + + + | Provide Resources | CHW assistance with moving into usp care facility | + + + Encounter Details +--------+ + + + + | Date | Type | Department | Care Team | Description | +--------+ + + + + | 05/29/ | Telephone | [place] [facility] | Estrellita Brasher | Provide Resources | | 2019 | | [facility] | [address] | ([facility] assistance with | | | | PRIMARY CARE [address] [place] | moving into long | | | | [facility], | [place] [address] | term care [facility]) | | | | [place] [address] | [phone] | | | | | [phone] | | | +--------+ + + + [...]
--- OUTSIDE RECORDS SUMMARY | ~2019-09-01 | XMS | Encounter Summary ---
Demographics + + + | Address | [address] | | | [place] [address] | + + + | Home Phone | | + + + | Preferred Language | Unknown | + + + | Marital Status | | + + + | Catholic Affiliation | Unknown | + + + | Race | Unknown | + + + | Ethnic Group | Unknown | + + + Author + + + | Author | [facility] | | | and Escobarana | + + + | Organization | [facility] | | [...] Team Providers + +------+ + | Care Code Official Name | Role | Phone | + [...] Results, Imaging | | 2017 | | [facility] | D, SKETCH LINER ONE | | | | | PRIMARY CARE [address] | [facility] | | | | | [facility]ET [facility], | [place] [address] | | | | | [place] [address] | [phone] | | | | | [phone] | | | +--------+ + + + [...]
--- OUTSIDE RECORDS SUMMARY | ~2019-09-01 | XMS | Encounter Summary ---
Demographics + + + | Address | [address] | | | [place] [address] | + + + | Home Phone [...] | Author | [facility] | | | and Escobar[place] | + + + | Organization | [facility] | | | and [place] [...] Team Providers + +------+ + | Care Unit Coordinator Name | Role | Phone | [...] | | 2018 | Visit | [facility] | GROUND CREW LINES PERSON [address] | failure, unspecified | | | | PRIMARY CARE [address] | [place] [address] | HF chronicity, | | | | JET [facility], | [phone] | unspecified heart | | | | [place] [address] | | failure type (HCC) | | | | [phone] | | (Primary Dx); | | | [...] Avila 73 y.o. 1945 Med. Record Number: [id number] Assessment and Plan: 73-year-old male presents for follow-up exam. Patient has no changes from prior visit. No te from recent visit with linen manager reviewed. No changes from prior treatment plan. Tomás fagan continue to be monitored with medication management with yearly follow-up. Patient is fol lowed by the [place] and will continue to receive all routine [...] fair amount of alcohol use.ntly seen by linen manager and follow-up. Patient is followed by the [place]. He reports he receives all his medications [...] including heart failure, severe emphysema, prior anteroseptal [place] [...] | | | | | Court Valenz[address]a, [facility] | | | | | | Director [address] | | | | | | [facility] | | | | | | [place] | | | | | | [address] [address] | | | | | | #[phone] | | | | + + + [...] + + + | REFERENCE LAB | [address] [facility] | [place] | | | [facility] - | | [address] | | | JANA CAMPOS | | [...] | [facility] | | | | [facility] | | HOSPITAL | | | | [...] + + | [place] [facility] | [address] | [place] [address] | [phone] | | HOSPITAL LABORATORY | | | [...] | mL/min/1.73m2 | [facility] | | | LEBANESE | RATE,ESTIMATED | | HOSPITAL | | | | mL/min/1.63u3Tyqq than | | LABORATORY | | | [...] + + | [place] [facility] | [address] | [place] [address] | [phone] | | HOSPITAL LABORATORY | | | [...] + + | [place] [facility] | [address] | [place] [address] | [phone] | | HOSPITAL LABORATORY | | | [...] + + | [place] [facility] | [address] | [place] [address] | [phone] | | HOSPITAL LABORATORY | | | [...] + + | [place] [facility] | [address] | [place] [address] | [phone] | | HOSPITAL LABORATORY | | | [...] + + | [place] [facility] | [address] | [place] [address] | [phone] | | HOSPITAL LABORATORY | | | [...]
--- OUTSIDE RECORDS SUMMARY | ~2019-09-01 | XMS | Encounter Summary ---
Demographics + + + | Address | [address] | | | [place] [address] | + + + | Home Phone [...] | [facility] | | | and [place]obarana | + + + | Organization | [facility] | [...] Team Providers + +------+ + | Care C Software Engineer Name | Role | Phone | [...] | | | | | aortic | CUSTOMER SERVICE ANALYST ONE | MD Brendan | | | | | aneurysm, | UNIVERSITY | [address] | | | | | without | [address] [place] | St [place] | | | | | rupture | [place], [place] | [place], [place] | | | | | (HCC) | [address] | [address] Phone: | | | | | Essential | Phone: | [phone] | | | | | (primary) | [phone] | Fax: | | | | | hypertension | Fax: | [phone] | | | | | | [phone] | | | | | | Hyperlipidem [...] | aneurysm (AAA) | | | | [address], | [address] [place] | without rupture | | | | [place] [address] | [place] [address] | (HCC) (Primary Dx); | | | | [phone] | [phone] | Essential | | | | | [...] heart failure, severe emphysema, prior a nteroseptal [place] and strokes, heavy tobacco use, abdominal aortic [...] for 28 days. Please ship medication via [employer] Location, IP to: Saturnino Duran [address] [place], [place] [address] 120 tablet 0 lisinopril (PRINIVIL,ZESTRIL) 40 MG [...] Swelling Bee Venom Anaphylaxis Uncoded Nonscreenable Allergen [place], patient states he gets red spots and [...] made to ensure accuracy; however, inadvertent computerized frame pulley mortising machine operator errors may be pre sent. Electronically signed by: Kya Little MD PhD [facility] 03/22/2018 documented in t his encounter Plan [...]
--- OUTSIDE RECORDS SUMMARY | ~2019-09-01 | XMS | Encounter Summary ---
Demographics + + + | Address | [address] | | | [place] [address] | + + + | Home Phone [...] Author | [facility] | | | and [place] | + + + | Organization | [facility] | | | and [place] [...] Providers + +------+ + | Care Senior Microstrategy Developer Name | Role | Phone | [...] | MED CTR EXTERNAL | [address] | | | | | IMAGING | [place] | | | | | [phone] | [place] [address] | | +--------+ + + + + [...] for comparison only - no result from [place]. | | + + + + +---------+ + + | Performing | Address | City/State/Zipcode | Phone Number | | Organization | | | | + +---------+ + + | [facility] | | | | + +---------+ + + documented in this encounter Visit Diagnoses Not on filedocumented in this encounter"
--- OUTSIDE RECORDS SUMMARY | ~2019-09-01 | XMS | Encounter Summary ---
Demographics + + + | Address | [address] | | | [place] [address] | + + + | Home Phone [...] | [facility] | | | and [place] | + + + | Organization | [facility] | | [...] Providers + +------+ + | Care Well Shooter Name | Role | Phone | + [...] Medication Refill; | | 2018 | | [facility] | LETTY [address] | Medication Refill | | | | PRIMARY CARE [address] | [facility], | | | | | [facility] | [place] [address] | | | | | [place] [address] | [phone] | | | | | [phone] | | | +--------+--------+ + + + [...]
--- OUTSIDE RECORDS SUMMARY | ~2019-09-01 | XMS | Encounter Summary ---
Demographics + + + | Address | [address] | | | [place] [address] | + + + | Home Phone [...] | Author | [facility] | | | and [place] | + + + | Organization | [facility] [...] Team Providers + +------+ + | Care Paratransit Driver Name | Role | Phone | + +------+ + | Faith Rodríguez PENSIONHOLDER INFORMATION CLERK | PCP | | + +------+ + Encounter Details +--------+---------+ + + + | Date | Type | Department | Care Team | Description | +--------+---------+ + + + | 08/13/ | Office | [place] [facility] | Aric Palmer | Pain management | | 2018 | Visit | [facility] | [address]TY [address] | contract agreement | | | | PRIMARY CARE [address] | [employer], | (Primary Dx); | | | | JET [employer], | [place] [address] | Chronic midline low | | | | [place] [address] | [phone] | back pain with | | | | [phone] | | bilateral sciatica; | | | [...] reduce pain. They are stronger than most gqmz-kst-ticou er pain relievers and must be prescribed [...] you learn different ways to respond and rn endoscopy e with pain Mind/body therapies such as [...] you are taking benzodiazepines. Date Last Reviewed: 05/23/201719992907-1296 [employer] [address] [place] [address], [place] [address]. All righ ts reserved. This information is [...] medicines for your pain. You may use sjnw-ejm-aislxnm or prescription medici nathaniel. You may need to take more than [...] your needs. This may include: Stretching and zqsrp-ns-oujcmw exercises Low-impact exercise such as walking, biking, [...] more support and information, contact these groups: [place] Academy of Pain Management, www.aapainmanage.org [place] Academy of Pain Medicine, www.painmed.org [place] Chronic Pain Association, www.theacpa.org National Pain Foundation, www.thenationalpainfoundation.org Date Last Reviewed: 09/22/201719994139-1455 [employer]. [address] [place] [address], [place] [address]. All righ ts reserved. This information is not intended as a substitute for professional medical care. Always follow your healthcare professional's instructions. Acetaminophen; Hydrocodone tablets or capsules Brand Names: Anexsia, Lorcet, Lorcet HD, Lorcet Plus, Lortab, Richmond, Verdrocet, Vicodin, Vi codin ES, Vicodin HP, [...] information carefully each time. Talk to your bereavement coordinator regarding the use of this medicine in children. Special care may be needed. What side effects may I notice from receiving this medicine? Side effects that you should report to your doctor or health child care centre director as soon as p ossible: allergic reactions [...] attention (report to your doctor or health child care centre director if they continue or are bothersome): constipation [...] this medicine? Tell your doctor or health child care centre director if your pain does not go away, [...] contract with a new provider at the [facility]. He typically uses Richmond 5/325 2 tabs BID #112 Pt gets his medications from the [facility]. I will provide 5 refills for this medicat ion. He will have to come in q 6 months and provide a UDS for the next script. UDS done today. Pill count of 7 tabs left. Fill date of 05/03/18 by Faith CHOWDARY No PDMP on file due to filled at [place]. Spent 30 minutes face to face with patient discussing treatment options, medications, OPI m edications and SE. Encounter for medical examination to establish care Pt presents today to establish a chronic pain management care plan with David Palmer PA-C at [facility] today. Subjective: Pt presents today to establish a pain management contract with a new provider at the [facility]. He typically uses Richmond 5/325 2 tabs BID #112 Pt gets his medications from the [facility]. Pill count of 7 tabs left. Fill date of 05/03/18 by Faith CHOWDARY No PDMP on file due to filled at [place]. Pt denies misuse or abuse of his OPI medication; denies addiction issues. Allergies: Allergies Allergen Reactions Aspirin Nausea Only and Swelling Bee Venom Anaphylaxis Uncoded Nonscreenable Allergen [place], patient states he gets red spots and [...] by mouth nightly. Take 2 tablets at [facility] ht 90 tablet 0 No current [...] normal. A total of 30minutes was spent rlpu-rr-kefu with patient, greater than 50% of which [...] the attending | LABORATORY | | physician. Bwnu-mxg-pidwawz drugs may cross react with some methods. [...] + + | [place] [facility] | [address] | [place] [address] | [phone] | | HOSPITAL LABORATORY | | | [...]
--- OUTSIDE RECORDS SUMMARY | ~2019-09-01 | XMS | Encounter Summary ---
Demographics + + + | Address | [address] | | | [place] [address] | + + + | Home Phone [...] | Author | [facility] | | | and [place] | + + + | Organization | [facility] | | [...] Team Providers + +------+ + | Care Credit And Collections Analyst Name | Role | Phone | [...] W | APPOINTMENT) | | | | [place], | [address] [place] | | | | | [place] [address] | [place] [address] | | | | | [phone] | [phone] | | | | | | | [...]
--- OUTSIDE RECORDS SUMMARY | ~2019-09-01 | XMS | Encounter Summary ---
Demographics + + + | Address | [address] | | | [place] [address] | + + + | Home Phone [...] | [facility] | | | and [place]obar[place] | + + + | Organization | [facility] | | | and [place] [...] Team Providers + +------+ + | Care Fire Investigator Name | Role | Phone | + [...] | | JET [facility], | [place] [address] | | | | | [place] [address] | [phone] | | | | | [phone] | | | +--------+ + + + [...]
--- OUTSIDE RECORDS SUMMARY | ~2019-09-01 | XMS | Encounter Summary ---
Demographics + + + | Address | [address] | | | [place] [address] | + + + | Home Phone [...] | Author | [facility] | | | and [place] | + + + | Organization | [facility] [...] Team Providers + +------+ + | Care Assistant Kitchen Manager Name | Role | Phone | [...] Refill | | 2019 | | [facility] | [address]TY [address] | | | | | PRIMARY CARE [address] | [facility]ET [facility], | | | | | [facility], | [place] [address] | | | | | [place] [address] | [phone] | | | | | [phone] | | | +--------+--------+ + + + [...]
--- OUTSIDE RECORDS SUMMARY | ~2019-09-01 | XMS | Encounter Summary ---
Demographics + + + | Address | [address] | | | [place] [address] | + + + | Home Phone [...] | Author | [facility] | | | and [place] | + + + | Organization | [facility] | | | and [...] Team Providers + +------+ + | Care Data Entry Supervisor Name | Role | Phone | + +------+ + PCP | Unavailable | + +------+ + Encounter Details +--------+ + + + + | Date | Type | Department | Care Team | Description | +--------+ + + + + | 05/09/ | Hospital | [place] [facility] | Faith Rodríguez | | | 2016 | Encounter | [facility] | D, SLAUGHTERER RELIGIOUS RITUAL ONE | | | | | SHANE DAUGHERTY | [facility] [place] | | | | | [place] | [place] [address] | | | | | [address] | [phone] | | | | | [phone] | | | +--------+ + + + [...] similar | | | appearance. JOB #: [id number] Digitally Released by: Faye Quintero | | [...] | | | | | JOB #: [id number] | | Digitally Released by: Faye Quintero | | | | | | Read By: FAYE QUINTERO MD | | Date: 05/09/2017 13:58 | | | + + documented in this encounter Visit Diagnoses Not on filedocumented in this encounter"
--- OUTSIDE RECORDS SUMMARY | ~2019-09-01 | XMS | Encounter Summary ---
Demographics + + + | Address | [address] | | | [place] [address] | + + + | Home Phone [...] + | Author | [facility] | | | and [place] | + + + | Organization | [facility] | | [...] Team Providers + +------+ + | Care Male Infertility Specialist Name | Role | Phone | + +------+ + | Aric Palmer | PCP | | | LETTY | | | + +------+ + Reason for Visit + + + | Reason | Comments | + + + | Provide Resources | CHW assistance with manager long term care caer facility information | + + + Encounter Details +--------+ + + + + | Date | Type | Department | Care Team | Description | +--------+ + + + + | 03/06/ | Telephone | [place] [facility] | Estrellita Brasher | Provide Resources | | 2019 | | [facility] | [address] | ([facility] assistance with | | | | PRIMARY CARE [address] [place] | manager long term care caer | | | | [facility]ET [facility], | [place] [address] | facility | | | | [place] [address] | [phone] | information) | | | | [phone] | | | +--------+ + + + [...]
--- OUTSIDE RECORDS SUMMARY | ~2019-09-01 | XMS | Encounter Summary ---
Demographics + + + | Address | [address] | | | [place] [address] | + + + | Home Phone [...] [facility] | | | and [place]obar[place] | + + + | Organization | [facility] | [...] Team Providers + +------+ + | Care Landscaper Helper Name | Role | Phone | [...] medication | | 2018 | Visit | [facility] | D, VISUAL COORDINATOR ONE | agreement (Primary | | | | PRIMARY CARE [address] | [facility] [place] | Dx); Abnormal | | | | JET [facility], | [place] [address] | positron emission | | | | [place] [address] | [phone] | tomography (PET) | | | | [phone] | | scan of head; Other | [...] weight on the joint Date Last Reviewed: 12/21/201619995799-7736 [employer] [address] [place] [address], [place] [address]. All righ ts reserved. This information is [...] you are not leaning toward the [facility] wheel. A small pillow or rolled towel [...] in the groin area Date Last Reviewed: 03/23/201619991530-6197 [employer] [address] [place] [address], [place] [id number]. All righ ts reserved. This information is not intended as a substitute for professional medical care. Always follow your healthcare professional's instructions. documented in this encounter Progress Notes Faith Rodríguez NP - 11/13/2017 1:00 PM PST [facility]O PROGRESS NOTE Pt. Name/Age/: Saturnino Avila 72 y.o. 1945 Med. Record Number: [id number] Assessment and Plan: 1. Pain medication agreement Pain contract signed, reviewed contract in detail. Pt has been on Lares for many years for severe back pain [...] days/q 3 months Follow-up with PCP or VISUAL COORDINATOR monthly for then every 3 months 1. [...] fairly clear. He will be going to [place] on January 02, 2018, for cardiac stress [...] Material Risk Notice Narcotic Controlled Substances - [place] 'Intractable pain' means that you have a [...] get refills of medicine(s) from: [facility] [address] [address] Goals and Alternatives Your goals from therapy are to reduce your pain to a level that will allow you to do the fo llowing: Alternatives or additions to this therapy are: Acupuncture Massage Physical Therapy Pain Classes Yoga Counseling TENS Unit TERMS OF AGREEMENT There are certain rules that apply to patients receiving opioid medications for chronic hans n conditions from [facility]. If I prescribe these medications for [...] provider or covering doctor 48 hours in [facility] and during business hours. I [...] predicted. 8. TOLERANCE - with long term acute care registered nurse use, an increased amount of the same [...] of your provider or a [facility]. 10. ADDICTION (ABUSE) - [...] preferred imaging location? Answer: [place] [facility] Electronically signed by: Faith Rodríguez, 11/14/2017 18:15 [...]
--- OUTSIDE RECORDS SUMMARY | ~2019-09-01 | XMS | Encounter Summary ---
Demographics + + + | Address | [address] | | | [place] [address] | + + + | Home Phone | | + + + | Preferred Language | Unknown | + + + | Marital Status | | + + + | Orthodoxy Affiliation | Unknown | + + + | Race | Unknown | + + + | Ethnic Group | Unknown | + + + Author + + + | Author | [facility] | | | and Escobar[place] | + + + | Organization | [facility] | [...] Team Providers + +------+ + | Care Renderer Name | Role | Phone | + [...] | | | 2018 | Support | [facility] | D, NEUROLOGY HOSPITALIST ONE | | | | | PRIMARY CARE [address] | [facility] | | | | | JET [facility], | [place] [address] | | | | | [place] [address] | [phone] | | | | | [phone] | | | +--------+ + + + [...] he hasn't received his hydrocodone from the [facility]. According to patient's chart, the script was sent on 02/27/18. I told patient to call the [place] pharmacy to see if they had sent the mediation yet. Pt also expressed frustration that his medication are not automatically refilled. I told [facility] patient that we do not refill narcotics or controlled substances without a request from [facility] patient or the pharmacy. Pt has an upcoming appt with Faith, he states he will talk to her then. .EDDIE Red CMA documented in this encounter Plan of Treatment Not on filedocumented as of this encounter Visit Diagnoses Not on filedocumented in this encounter"
--- OUTSIDE RECORDS SUMMARY | ~2019-09-01 | XMS | Encounter Summary ---
Demographics + + + | Address | [address] | | | [place] [address] | + + + | Home Phone [...] + | Author | [facility] | | | and [place] | + + + | Organization | [facility] | | [...] Team Providers + +------+ + | Care Blueprint Reader Name | Role | Phone | + [...] | MED CTR EXTERNAL | [address] | | | | | IMAGING | [place] | | | | | [phone] | [place] [address] | | +--------+ + + + + [...] for comparison only - no result from [place]. | | + + + + +---------+ + + | Performing | Address | City/State/Zipcode | Phone Number | | Organization | | | | + +---------+ + + | [facility] | | | | + +---------+ + + documented in this encounter Visit Diagnoses Not on filedocumented in this encounter"
--- OUTSIDE RECORDS SUMMARY | ~2019-09-01 | XMS | Encounter Summary ---
Demographics + + + | Address | [address] | | | [place] [address] | + + + | Home Phone [...] [facility]ly [facility] | | | and [place] | + + + | Organization | [facility] [...] Team Providers + +------+ + | Care Java Oracle Developer Name | Role | Phone | + +------+ + | Faith Rodríguez CREDIT CLERK | PCP | | + +------+ + Encounter Details +--------+ + + + + | Date | Type | Department | Care Team | Description | +--------+ + + + + | 10/13/ | Orders Only | [place] | Faith Rodríguez | Constipation due to | | 2016 | | [facility] | D, CREDIT CLERK ONE | opioid therapy | | | | PRIMARY CARE [address] | [facility] [place] | (Primary Dx) | | | | JET [facility], | [place] [address] | | | | | [place] [address] | [phone] | | | | | [phone] | | | +--------+ + + + [...]
--- OUTSIDE RECORDS SUMMARY | ~2019-09-01 | XMS | Encounter Summary ---
Demographics + + + | Address | [address] | | | [place] [address] | + + + | Home Phone [...] | [facility] | | | and [place]obar[place] | + + + | Organization | [facility] | [...] Team Providers + +------+ + | Care Actuarial Manager Name | Role | Phone | + +------+ + | Faith Rodríguez PANEL INSTALLER | PCP | | + +------+ + [...] | | | | | Pulmonary | [place] | [facility] | | | | | nodules | MD Nitin | IMAGING [address] | | | | | Tobacco | [address] | | | | | dependence | JOSE J | [place] | | | | | Procedures | [place], | [address] | | | | | PET CT Skull | [place] [address] | Phone: | | | | | Base To Mid | Phone: | [phone] | | | | | Thigh | [phone] | Fax: | | | | | | Fax: | [phone] | | | | | | [phone] | | +--------+--------+ + + + + [...] | | | Pulmonary | Jcarlos | [facility] | | | | | nodules | MD Nitin | IMAGING [address] | | | | | Tobacco | [address] | | | | | dependence | JOSE J | [place] | | | | | Procedures | [place], | [address] | | | | | PET CT Skull | [place] [address] | Phone: | | | | | Base To Mid | Phone: | [phone] | | | | | Thigh | [phone] | Fax: | | | | | | Fax: | [phone] | | | | | | [phone] | | +--------+--------+ + + + + [...] | | [place] | [place] [address] | | | | | [address] | [phone] | | | | | [phone] | | | +--------+ + + + [...]
--- OUTSIDE RECORDS SUMMARY | ~2019-09-01 | XMS | Encounter Summary ---
Demographics + + + | Address | [address] | | | [place] [address] | + + + | Home Phone [...] | Author | [facility] | | | and [place] | + + + | Organization | [facility] | | | and [...] Team Providers + +------+ + | Care Field Support Technician Name | Role | Phone | [...] Medication Refill | | 2017 | | [facility] | D, ARMATURE TESTER ONE | | | | | PRIMARY CARE [address] | [facility] | | | | | JET [facility] [place], | [place] [address] | | | | | [place] [address] | [phone] | | | | | [phone] | | | +--------+ + + + [...]
--- OUTSIDE RECORDS SUMMARY | ~2019-09-01 | XMS | Encounter Summary ---
Demographics + + + | Address | [address] | | | [place] [address] | + + + | Home Phone [...] | Author | [facility] | | | and [place] | + + + | Organization | [facility] | [...] Team Providers + +------+ + | Care Revenue Cycle Consultant Name | Role | Phone | + +------+ + | Faith Rodríguez MANUFACTURING ASSOCIATE | PCP | | + +------+ + Encounter Details +--------+ + + + + | Date | Type | Department | Care Team | Description | +--------+ + + + + | 07/20/ | [facility] | [place] | Faith Rodríguez | | | 2017 | Encounter | [facility] | D, KEN ONE | | | | | PRIMARY CARE [address] | [facility] | | | | | JET [facility], | [place] [address] | | | | | [place] [address] | [phone] | | | | | [phone] | | | +--------+ + + + [...]
--- OUTSIDE RECORDS SUMMARY | ~2019-09-01 | XMS | Encounter Summary ---
Demographics + + + | Address | [address] | | | [place] [address] | + + + | Home Phone [...] Author | [facility] | | | and [place] | + + + | Organization | [facility] | | | and [place] [...] Team Providers + +------+ + | Care Shuttleless Loom Weaver Name | Role | Phone | + [...] | [facility] | MD [address] | | | | | IMAGING | Tato GOMEZ | | | | | [phone] | [place] [address] | | +--------+ + + + + [...] for comparison only - no result from [place]. | [facility] | + + + + +---------+ + + | Performing | Address | City/State/Zipcode | Phone Number | | Organization | | | | + +---------+ + + | [facility] | | | | + +---------+ + + documented in this encounter Visit Diagnoses Not on filedocumented in this encounter"
--- OUTSIDE RECORDS SUMMARY | ~2019-09-01 | XMS | Encounter Summary ---
Demographics + + + | Address | [address] | | | [place] [address] | + + + | Home Phone [...] | Author | [facility] | | | and [place] | + + + | Organization | [facility] [...] Providers + +------+ + | Care Manager Mission Name | Role | Phone | + [...] Medication Refill | | 2019 | | [facility] | [address]TY [address] | | | | | PRIMARY CARE [address] | JET [facility], | | | | | [facility], | [place] [address] | | | | | [place] [address] | [phone] | | | | | [phone] | | | +--------+--------+ + + + [...]
--- OUTSIDE RECORDS SUMMARY | ~2019-09-01 | XMS | Encounter Summary ---
Demographics + + + | Address | [address] | | | [place] [address] | + + + | Home Phone [...] | Author | [facility] | | | and [place] | + + + | Organization | [facility] | [...] Team Providers + +------+ + | Care Missile Inspector Name | Role | Phone | + +------+ + | Faith Rodríguez TEACHER PHYSICALLY IMPAIRED | PCP | | + +------+ + [...] | | | PET scan of | TEACHER PHYSICALLY IMPAIRED ONE | DR [address] | | | | | head | UNIVERSITY | [facility], [place] | | | | | Procedures | [place]VD [place] | [address] | | | | | MRI Neck | [place], [place] | Phone: | | | | | Soft Tissue | [address] | [phone] | | | | | Only w wo | Phone: | Fax: | | | | | Contrast | [phone] | [phone] | | | | | | Fax: | | | | | | | [phone] | | +--------+--------+ + + + + Encounter Details +--------+ + + + + | Date | Type | Department | Care Team | Description | +--------+ + + + + | 11/16/ | Orders Only | [place] | Faith Rodríguez | Abnormal PET scan of | | 2018 | | [facility] | D, TEACHER PHYSICALLY IMPAIRED ONE | head (Primary Dx) | | | | PRIMARY CARE [address] | [facility] [place] | | | | | JET [place], | [place] [address] | | | | | [place] [address] | [phone] | | | | | [phone] | | | +--------+ + + + [...]
--- OUTSIDE RECORDS SUMMARY | ~2019-09-01 | XMS | Encounter Summary ---
Demographics + + + | Address | [address] | | | [place] [address] | + + + | Home Phone [...] + + | Author | [facility] | | | and [place] | + + + | Organization | [facility] | | | and [...] Team Providers + +------+ + | Care Bankruptcy Manager Name | Role | Phone | + +------+ + PCP | Unavailable | + +------+ + Encounter Details +--------+ + + + + | Date | Type | Department | Care Team | Description | +--------+ + + + + | 04/17/ | [facility] | [place] | Faith Rodríguez | | | 2017 | Encounter | [facility] | D, DIETARY SUPERVISOR ONE | | | | | PRIMARY CARE [address] | [facility] | | | | | JET [facility] [place], | [place] [address] | | | | | [place] [address] | [phone] | | | | | [phone] | | | +--------+ + + + [...]
--- OUTSIDE RECORDS SUMMARY | ~2019-09-01 | XMS | Encounter Summary ---
Demographics + + + | Address | [address] | | | [place] [address] | + + + | Home Phone | | + + + | Preferred Language | Unknown | + + + | Marital Status | | + + + | Anabaptism Affiliation | Unknown | + + + | Race | Unknown | + + + | Ethnic Group | Unknown | + + + Author + + + | Author | [facility] | | | and [place] | + + + | Organization | [facility] | | | and [place] [...] Team Providers + +------+ + | Care Photonics Engineering Technician Name | Role | Phone [...] Medication Refill | | 2018 | | [facility] | D, BIOINFORMATICS TECHNICIAN ONE | | | | | PRIMARY CARE [address] | [facility] | | | | | JET [facility], | [place] [address] | | | | | [place] [address] | [phone] | | | | | [phone] | | | +--------+--------+ + + + [...]
--- OUTSIDE RECORDS SUMMARY | ~2019-09-01 | XMS | Encounter Summary ---
Demographics + + + | Address | [address] | | | [place] [address] | + + + | Home Phone | | + + + | Preferred Language | Unknown | + + + | Marital Status | | + + + | Episcopal Affiliation | Unknown | + + + | Race | Unknown | + + + | Ethnic Group | Unknown | + + + Author + + + | Author | [facility] | | | and [place] | + + + | Organization | [facility] [...] Team Providers + +------+ + | Care Casino Floor Runner Name | Role | Phone | + +------+ + | Faith Rodríguez ROLL PLUGGER MACHINE OPERATOR | PCP | | + +------+ + Encounter Details +--------+---------+ + + + | Date | Type | Department | Care Team | Description | +--------+---------+ + + + | 08/13/ | Office | [place] | Aric Palmer | Pain management | | 2018 | Visit | [facility] | [address]TY [address] | contract agreement | | | | PRIMARY CARE [address] | [employer], | (Primary Dx); | | | | JET [facility], | [place] [address] | Chronic midline low | | | | [place] [address] | [phone] | back pain with | | | | [phone] | | bilateral sciatica; | | | [...] reduce pain. They are stronger than most qtii-utf-stcec er pain relievers and must be prescribed [...] you learn different ways to respond and cop breaker e with pain Mind/body therapies such as [...] you are taking benzodiazepines. Date Last Reviewed: 05/23/201719994957-4248 [employer]. [address] [place] [address], [place] [address]. All righ ts reserved. This information is [...] medicines for your pain. You may use voym-qnd-gybphbr or prescription medici nathaniel. You may need [...] with medical care to help relieve pain. aJcinto trevino a licensed practitioner with experience treating [...] your needs. This may include: Stretching and hsaeb-wb-eakktt exercises Low-impact exercise such as walking, biking, [...] more support and information, contact these groups: [place] [employer], www.aapainmanage.org [place] Academy of Pain Medicine, www.painmed.org [place] Chronic [employer] Association, www.theacpa.org National Pain Foundation, www.thenationalpainfoundation.org Date Last Reviewed: 09/22/201719990848-8703 [employer]. [address] [place] [address], [place] [address]. All righ ts reserved. This information is not intended as a substitute for professional medical care. Always follow your healthcare professional's instructions. Acetaminophen; Hydrocodone tablets or capsules Brand Names: Anexsia, Lorcet, Lorcet HD, Lorcet Plus, Lortab, Ekron, Verdrocet, Vicodin, Vi codin ES, Vicodin HP, [...] information carefully each time. Talk to your alfalfa dehydrator operator regarding the use of this medicine in children. Special care may be needed. What side effects may I notice from receiving this medicine? Side effects that you should report to your doctor or health care transition mgr as soon as p ossible: allergic reactions [...] attention (report to your doctor or health care transition mgr if they continue or are bothersome): constipation [...] this medicine? Tell your doctor or health care transition mgr if your pain does not go away, [...] contract with a new provider at the [facility]. He typically uses Ekron 5/325 2 tabs BID #112 Pt gets his medications from the [facility]. I will provide 5 refills for this medicat ion. He will have to come in q 6 months and provide a UDS for the next script. UDS done today. Pill count of 7 tabs left. Fill date of 05/03/18 by Faith CHOWDARY No PDMP on file due to filled at [place]. Spent 30 minutes face to face with patient discussing treatment options, medications, OPI m edications and SE. Encounter for medical examination to establish care Pt presents today to establish a chronic pain management care plan with David Palmer PA-C at [facility] today. Subjective: Pt presents today to establish a pain management contract with a new provider at the [facility]. He typically uses Ekron 5/325 2 tabs BID #112 Pt gets his medications from the [facility]. Pill count of 7 tabs left. Fill date of 05/03/18 by Faith CHOWDARY No PDMP on file due to filled at [place]. Pt denies misuse or abuse of his OPI medication; denies addiction issues. Allergies: Allergies Allergen Reactions Aspirin Nausea Only and Swelling Bee Venom Anaphylaxis Uncoded Nonscreenable Allergen Jaffrey, patient states he gets red spots and [...] by mouth nightly. Take 2 tablets at [facility] ht 90 tablet 0 No current [...] normal. A total of 30minutes was spent stnt-ok-ruup with patient, greater than 50% of which [...] the attending | LABORATORY | | physician. Dcdp-upk-pnorqlp drugs may cross react with some methods. [...] + + | [place] | [address] | [place] [address] | [phone] | | HOSPITAL LABORATORY | | | [...]
--- OUTSIDE RECORDS SUMMARY | ~2019-09-01 | XMS | Encounter Summary ---
Demographics + + + | Address | [address] | | | [place] [address] | + + + | Home Phone [...] | Author | [facility] | | | and [place] | + + + | Organization | [facility] [...] Team Providers + +------+ + | Care Cornetist Name | Role | Phone | + [...] [facility] | D, DIRECTOR STAGE ONE | | | | | PRIMARY CARE [address] | [facility] | | | | | JET [facility], | [place] [address] | | | | | [place] [address] | [phone] | | | | | [phone] | | | +--------+--------+ + + + [...]
--- OUTSIDE RECORDS SUMMARY | ~2019-09-01 | XMS | Encounter Summary ---
Demographics + + + | Address | [address] | | | [place] [address] | + + + | Home Phone [...] Author | [facility] | | | and [place] | + + + | Organization | [facility] [...] Team Providers + +------+ + | Care Foundry Hand Name | Role | Phone | + +------+ + | Aric Palmer | PCP | | | [place] | | | + +------+ + Reason for Visit + + + | Reason | Comments | + + + | Provide Resources | [facility] assistance with resident care aid caer facility information | + + + Encounter Details +--------+ + + + + | Date | Type | Department | Care Team | Description | +--------+ + + + + | 03/06/ | Telephone | [place] | Estrellita Brasher | Provide Resources | | 2019 | | [facility] | [address], [address] | ([facility] assistance with | | | | PRIMARY CARE [address] | [address] [place] | resident care aid caer | | | | JET [facility], | [place] [address] | facility | | | | [place] [address] | [phone] | information) | | | | [phone] | | | +--------+ + + + [...]
--- OUTSIDE RECORDS SUMMARY | ~2019-09-01 | XMS | Encounter Summary ---
Demographics + + + | Address | [address] | | | [place] [address] | + + + | Home Phone [...] Author | [facility] | | | and [place] | + + + | Organization | [facility] [...] Team Providers + +------+ + | Care Tack Cutter Name | Role | Phone | + +------+ + | Faith Rodríguez PUBLIC BATH ATTENDANT | PCP | | + +------+ [...] artery | MD Brendan | [address] | | | | | disease, | [address] | [place], | | | | | angina | [place] | [place] | | | | | presence | [place], [place] | [address] | | | | | unspecified, | [address] | Phone: | | | | | unspecified | Phone: | [phone] | | | | | vessel or | [phone] | Fax: | | | | | lesion type, | Fax: | [phone] | | | | | unspecified | [phone] | | | | | | whether | | | | | | | [place] or | | | | | | [...] | | | | | | STUDIES PA | | | | | | | CV STRS TST | | | | | | | XERS&/OR RX | | | | | | | CONT ECG W/O | | | | | | | I&R PA | | | | | | | [...] 01/02/ | Hospital | [facility] | Deangelo Little | | | 2018 | Encounter | MED CTR NUCLE[facility] | MD Brendan [address] | | | | | MEDICINE [address] [place] | | | | | [place], | [place] [address] | | | | | [place] [address] | [phone] | | | | | [phone] | | | +--------+ + + + [...] whether | | | | | | [place] or | | | | | | [...]
--- OUTSIDE RECORDS SUMMARY | ~2019-09-01 | XMS | Encounter Summary ---
Demographics + + + | Address | [address] | | | [place] [address] | + + + | Home Phone [...] + | Author | [facility] | | | and [place] | + + + | Organization | [facility] | | [...] Team Providers + +------+ + | Care Drop Worker Name | Role | Phone | [...] | | | | [place] | [facility] [place] | | | | | [place], [place] | [place] [address] | | | | | [address] | [phone] | | | | | [phone] | | | +--------+ + + + [...] | | | consult recommended. JOB #: [id number] Digitally Released by: | | | Faye [...] | | | | | JOB #: [id number] | | Digitally Released by: Faye Quintero | | | | | | Read By: FAYE QUINTERO MD | | Date: 07/31/2017 14:06 | | | + + documented in this encounter Visit Diagnoses Not on filedocumented in this encounter"
--- OUTSIDE RECORDS SUMMARY | ~2019-09-01 | XMS | Encounter Summary ---
Demographics + + + | Address | [address] | | | [place] [address] | + + + | Home Phone [...] + | Author | [facility] | | | and [place] | + + + | Organization | [facility] | | [...] Team Providers + +------+ + | Care Interventional Pain Physician Name | Role | Phone | [...] | Results | | 2018 | | [facility] | D, MONITORING ANALYST ONE | | | | | PRIMARY CARE [address] | [facility] | | | | | JET [facility], | [place], [place] [address] | | | | | [place] [address] | [phone] | | | | | [phone] | | | +--------+ + + + [...]
--- OUTSIDE RECORDS SUMMARY | ~2019-09-01 | XMS | Encounter Summary ---
Demographics + + + | Address | [address] | | | [place] [address] | + + + | Home Phone | | + + + | Preferred Language | Unknown | + + + | Marital Status | | + + + | Scientology Affiliation | Unknown | + + + | Race | Unknown | + + + | Ethnic Group | Unknown | + + + Author + + + | Author | [facility] | | | and [place] | + + + | Organization | [facility] | [...] Team Providers + +------+ + | Care Model And Pattern Supervisor Name | Role | Phone | + +------+ + PCP | Unavailable | + +------+ + Encounter Details +--------+ + + + + | Date | Type | Department | Care Team | Description | +--------+ + + + + | 04/13/ | [facility] | [place] | Faith Rodríguez | | | 2017 | Encounter | [facility] | D, ENRICHMENT SPECIALIST ONE | | | | | PRIMARY CARE [address] | [facility] | | | | | JET [facility], | [place] [address] | | | | | [place] [address] | [phone] | | | | | [phone] | | | +--------+ + + + [...]
--- OUTSIDE RECORDS SUMMARY | ~2019-09-01 | XMS | Encounter Summary ---
Demographics + + + | Address | [address] | | | [place] [address] | + + + | Home Phone | | + + + | Preferred Language | Unknown | + + + | Marital Status | | + + + | Yarsani Affiliation | Unknown | + + + | Race | Unknown | + + + | Ethnic Group | Unknown | + + + Author + + + | Author | [facility] | | | and Escobarana | + + + | Organization | [facility] | | | and [place] | [...] Providers + +------+ + | Care Director Financial Analysis Name | Role | Phone | + [...] | | | | | aortic | DOCTOR OF NATUROPATHIC MEDICINE ONE | MD Brendan | | | | | aneurysm, | UNIVERSITY | [address] | | | | | without | [address] [place] | [place] | | | | | rupture | [place], [place] | [place], [place] | | | | | (HCC) | [address] | [address] Phone: | | | | | Essential | Phone: | [phone] | | | | | (primary) | [phone] | Fax: | | | | | hypertension | Fax: | [phone] | | | | | | [phone] | | | | | | Hyperlipidem [...] | aneurysm (AAA) | | | | [place], | [address] [place] | without rupture | | | | [place] [address] | [place] [address] | (HCC) (Primary Dx); | | | | [phone] | [phone] | Essential | | | | | [...] heart failure, severe emphysema, prior a nteroseptal [place] and strokes, heavy tobacco use, abdominal aortic [...] for 28 days. Please ship medication via [employer] to: Saturnino Dur[address] [place], [place] [address] 120 tablet 0 lisinopril (PRINIVIL,ZESTRIL) 40 MG [...] Swelling Bee Venom Anaphylaxis Uncoded Nonscreenable Allergen Leoma, patient states he gets red spots and [...] made to ensure accuracy; however, inadvertent computerized research manager errors may be pre sent. Electronically signed by: Kya Little MD PhD [facility] 03/22/2018 documented in t his encounter Plan [...]
--- OUTSIDE RECORDS SUMMARY | ~2019-09-01 | XMS | Encounter Summary ---
Demographics + + + | Address | [address] | | | [place] [address] | + + + | Home Phone [...] Author | [facility] | | | and [place] | + + + | Organization | [facility] [...] Team Providers + +------+ + | Care Collision Mechanic Name | Role | Phone | [...] Medication Refill | | 2019 | | [facility] | [address]TY [address] | | | | | PRIMARY CARE [address] | [facility], | | | | | [facility], | [place] [address] | | | | | [place] [address] | [phone] | | | | | [phone] | | | +--------+--------+ + + + [...]
--- OUTSIDE RECORDS SUMMARY | ~2019-09-01 | XMS | Encounter Summary ---
Demographics + + + | Address | [address] | | | [place] [address] | + + + | Home Phone [...] | Author | [facility] | | | and Escobarana | + + + | Organization | [facility] | [...] Team Providers + +------+ + | Care Box Toe Buffer Name | Role | Phone | + [...] management | | 2019 | Visit | [facility] | [address] | (Primary Dx); | | | | PRIMARY CARE [address] | [facility], | Pulmonary nodules; | | | | [facility], | [place] [address] | Tobacco use; Chronic | | | | [place] [address] | [phone] | midline low back | | | | [phone] | | pain with bilateral | | [...] Chronic low back pain Multi-level degeneration. Continue Wagener 5/325 2 tabs BID through [facility]. 3 prescriptions of #120 provided today. [...] 2 g po qhs Rx sent to [facility] Hypertension Decrease Lisinopril to 20 mg from [...] current chronic pain management plan consists of Wagener 5/3/25 2 tablets twice a day, Flex eril 10 mg up to 3 times a day, and gabapentin 900 mg 3 times a day. A review of Saturnino's ur inary drug screens show that he is consistent with his prescribed opioid medication. He rec eives his medications from the [facility]. Saturnino continues to smoke cigarettes and is [...] & Cleansers Swelling Rash/swelling Uncoded Nonscreenable Allergen [place], patient states he gets red spots and [...] Diagnostics | | | | | | [facility] | | | | | | [...] | | | | | | [facility] | | | | | | Kathia Pastor M.D., | | | | | | Ph.D., Laboratory | | | | | | Director [id number] | | | | | | [facility] | | | | | | [place] [address] | | | | | | OBINNA #[id number] | | | | + + + + + + + + | Specimen | + + | Urine | + + + + + + + | Performing | Address | City/State/Zipcode | Phone Number | | Organization | | | | + + + + + | REFERENCE LAB | [address] [facility] | [place] | | | [facility] - | | [address] | | | [place] | | [...] By: | | | | | | [facility] | | | | | | [place] Daphne [place] | | | | | | Kathia Pastor M.D., | | | | | | Ph.D., Laboratory | | | | | | Director [id number] | | | | | | [facility] | | | | | | [place] [address] | | | | | | CLIA #[id number] | | | | + + + + + + + + | Specimen | + + | Urine | + + + + + + + | Performing | Address | City/State/[facility] | Phone Number | | Organization | | | | + + + + + | REFERENCE LAB | [id number] [place] [address] | [place], [place] | | | [facility] - | | [address] | | | [place] | | [...]
--- OUTSIDE RECORDS SUMMARY | ~2019-09-01 | XMS | Encounter Summary ---
Demographics + + + | Address | [address] | | | [place] [address] | + + + | Home Phone [...] [facility] | | | and [place]obar[place] | + + + | Organization | [facility] | [...] Team Providers + +------+ + | Care Registered Nurses Name | Role | Phone | + +------+ + | Faith Rodríguez BUSINESS ANALYTICS SPECIALIST | PCP | | + +------+ + Encounter Details +--------+ + + + + | Date | Type | Department | Care Team | Description | +--------+ + + + + | 02/27/ | Documentati | [place] [facility] | Faith Rodríguez | | | 2018 | on | [facility] | D, BUSINESS ANALYTICS SPECIALIST ONE | | | | | PRIMARY CARE [address] | [facility] | | | | | [facility], | [place] [address] | | | | | [place] [address] | [phone] | | | | | [phone] | | | +--------+ + + + [...] Doran Hydrocodone 5-325 qty 112 Certified Mail [address] [place] [address] Tracking number [id number] documented in this enco unter Plan of Treatment Not on filedocumented as of this encounter Visit Diagnoses Not on filedocumented in this encounter"
--- OUTSIDE RECORDS SUMMARY | ~2019-09-01 | XMS | Encounter Summary ---
Demographics + + + | Address | [address] | | | [place] [address] | + + + | Home Phone [...] + + | Author | [facility] | | | and [place]obar[place] | + + + | Organization | [facility] [...] Team Providers + +------+ + | Care Brake Repairer Hydraulic Name | Role | Phone | + [...] | [facility] | MD Te[address] | | | | | IMAGING | [place] | | | | | [phone] | [place] [address] | | +--------+ + + + + [...] for comparison only - no result from [facility]. | [facility] | + + + + +---------+ + + | Performing | Address | City/State/Zipcode | Phone Number | | Organization | | | | + +---------+ + + | [facility] | | | | + +---------+ + + documented in this encounter Visit Diagnoses Not on filedocumented in this encounter"
--- OUTSIDE RECORDS SUMMARY | ~2019-09-01 | XMS | Encounter Summary ---
Demographics + + + | Address | [address] | | | [place] [address] | + + + | Home Phone [...] Author | [facility] | | | and [place]obar[place] | + + + | Organization | [facility] [...] Team Providers + +------+ + | Care Career Based Intervention Coordinator Name | Role | Phone | [...] | HOSPITAL XRAY [address] | MD [address]ody [address] | | | | | [address] [address] | [address] | | | | | [place] | [place] [address] | | | | | [address] | [phone] | | | | | [phone] | | | +--------+ + + + [...]
--- OUTSIDE RECORDS SUMMARY | ~2019-09-01 | XMS | Encounter Summary ---
Demographics + + + | Address | [address] | | | [place] [address] | + + + | Home Phone [...] | [facility] | | | and Escobar[place] | + + + | Organization | [facility] | | | and [...] Providers + +------+ + | Care Laborer Steel Handling Name | Role | Phone | + +------+ + | Faith Rodríguez NP | PCP | | + +------+ + Encounter Details +--------+ + + + + | Date | Type | Department | Care Team | Description | +--------+ + + + + | 03/08/ | Abstract | [place] [facility] | Janice Pride | | | 2017 | | [facility] | | | | | | PRIMARY CARE [address] | | | | | | [facility], | | | | | | [place] [address] | | | | | | [phone] | | | +--------+ + + + [...]
--- OUTSIDE RECORDS SUMMARY | ~2019-09-01 | XMS | Encounter Summary ---
Demographics + + + | Address | [address] | | | [place] [address] | + + + | Home Phone [...] [facility] | | | and [place]obar[place] | + + + | Organization | [facility] | [...] Team Providers + +------+ + | Care Electric Blanket Packer Name | Role | Phone | + +------+ + PCP | Unavailable | + +------+ + Encounter Details +--------+ + + + + | Date | Type | Department | Care Team | Description | +--------+ + + + + | 05/25/ | Hospital | [place] | Faith Rodríguez | | | 2017 | Encounter | HOSPITAL XRAY [address] | D, HOOP PUNCH OPERATOR HELPER ONE | | | | | [place] | [facility] [place] | | | | | [place] | [place] [address] | | | | | [address] | [phone] | | | | | [phone] | | | +--------+ + + + [...] up DEXA evaluation is recommended JOB #: [id number] | | | Digitally Released by: Juan [...] | | | | | JOB #: [id number] | | Digitally Released by: Juan Miguel Hamm | | | | | | Read By: JUAN MIGUEL HAMM MD | | Date: 05/25/2017 11:25 | | | + + documented in this encounter Visit Diagnoses Not on filedocumented in this encounter"
--- OUTSIDE RECORDS SUMMARY | ~2019-09-01 | XMS | Encounter Summary ---
Demographics + + + | Address | [address] | | | [place] [address] | + + + | Home Phone | | + + + | Preferred Language | Unknown | + + + | Marital Status | | + + + | Jew Affiliation | Unknown | + + + | Race | Unknown | + + + | Ethnic Group | Unknown | + + + Author + + + | Author | [facility] | | | and [place]obar[place] | + + + | Organization | [facility] | | | [...] Team Providers + +------+ + | Care Marketing Services Coordinator Name | Role | Phone [...] Medication Refill | | 2019 | | [facility] | [address] | | | | | PRIMARY CARE [address] | [facility], | | | | | [facility], | [place] [address] | | | | | [place] [address] | [phone] | | | | | [phone] | | | +--------+--------+ + + + [...]
--- OUTSIDE RECORDS SUMMARY | ~2019-09-01 | XMS | Encounter Summary ---
Demographics + + + | Address | [address] | | | [place] [address] | + + + | Home Phone [...] + | Author | [facility] | | | and [place] | + + + | Organization | [facility] | | | and [...] Providers + +------+ + | Care Supervisor Phosphatic Fertilizer Name | Role | Phone | + [...] medication | | 2018 | Visit | [facility] | D, SPRING FORMER HAND ONE | agreement (Primary | | | | PRIMARY CARE [address] | [facility] [place] | Dx); Thrush, oral; | | | | [facility], | [place] [address] | Other osteoarthritis | | | | [place] [address] | [phone] | of spine, lumbar | | | | [phone] | | region | +--------+---------+ + + [...] back of your throat Date Last Reviewed: 01/08/201519996857-0149 [employer]. [address] [place] [address]. All righ ts reserved. This information is [...] quit within a month, and do it. Borden to your quit plan Talk to your [...] Track your triggers What gives you that D-tufj-d-cigarette feeling? List all the situations that make [...] wants to stop smoking. Date Last Reviewed: 04/22/201619993130-4498 [employer] [address] [place] [address], [place] [address]. All righ ts reserved. This information is [...] find a support program: Free national quitline: 290-SKAJ-AKJ (102-287-7488). Hospital quit-smoking programs. [place] [employer] Association: (286.739.1972). [place] Cancer Society (176-370-8569). Support at home is important too. Nonsmokers can offer praise and encouragement. If the smo ker in your life finds it hard to quit, encourage them to keep trying. Sotl-hfl-cunnzes medicines Nicotine replacement therapymay make quittingeasier. Certain [...] the Air" booklet from the National Cancer [place]: smokefree.gov/sites/defau lt/files/pdf/nmjjpcbq-urz-ugq-accessible.pdf Date Last Reviewed: 12/21/201619999465-8097 [employer]. [address] [place] [address]. All righ ts reserved. This information is not intended as a substitute for professional medical care. Always follow your healthcare professional's instructions. Acupuncture Acupuncture is an ancient form of Traditional [place] Medicine (TCM). Behind this treatment is the [...] headaches, and much more. Questions for the creative perfumer Before you decide whether to have acupuncture [...] library, on the Internet, or by contacting: [place] Association of Acupuncture and [place] Medicine www.aaaomonline.org National Certification Commissionfor Acupuncture and [place] Medicine www.nccaom.org [place] Academy of Medical Acupuncture www.medicalacupuncture.org Date Last Reviewed: 01/21/201719995106-5159 [employer] [address] [place] [address]. All righ ts reserved. This information is [...] mountain, as you breathe. Date Last Reviewed: 02/20/201719993731-4795 [employer]. [address] [place] [address], [place] [address]. All righ ts reserved. This information is not intended as a substitute for professional medical care. Always follow your healthcare professional's instructions. documented in this encounter Progress Notes Faith Rodríguez NP - 12/12/2017 1:00 PM PST [facility] PROGRESS NOTE Pt. Name/Age/: Saturnino Avila 72 y.o. 1945 Med. Record Number: [id number] Assessment and Plan: 1. Pain medication agreement [...] days/q 3 months Follow-up with PCP or [facility] monthly for 1 month then every 3 [...] get labsnext month again. He sees a clinical director on Dec. His weight is up a little. He has been taking Ensure. No pain in his stomach. He is having regular bowel movements. He has tried lozenges, patches, Wellbutrin, Chantix to try to stop smoking, but he is still smoking. He is interested in acupuncture for smoking cessation. Will send referral for ac upuncture after I check with [facility] to see where to refer him. Review [...] get refills of medicine(s) from: [facility] [address] Goals and Alternatives Your goals from therapy are to reduce your pain to a level that will allow you to do the fo rachelg: Helps him move around better. He takes at 4 different times. Alternatives or additions to this therapy are: Acupuncture - He would be interested in this if the [place] would pay for. He says it used to b e available at the [facility] by appointment and he is interested in going there if so (to help with smoking cessation) (Sara Ly [phone]) Massage Physical Therapy - He has had in the past. Pain Classes - He has had in the past. Yoga Counseling TENS Unit TERMS OF AGREEMENT There are certain rules that apply to patients receiving opioid medications for chronic hans n conditions from [facility]. If I prescribe these medications for [...] provider or covering doctor 48 hours in [facility] and during business hours. I will follow [...] be reliably predicted. 8. TOLERANCE - with traffic control operator use, an increased amount of the same [...]
--- OUTSIDE RECORDS SUMMARY | ~2019-09-01 | XMS | Encounter Summary ---
Demographics + + + | Address | [address] | | | [place] [address] | + + + | Home Phone [...] + | Author | [facility] | | | and [place]obar[place] | + + + | Organization | [facility] | | | and [place] [...] Team Providers + +------+ + | Care Painting Department Supervisor Name | Role | Phone | + +------+ + PCP | Unavailable | + +------+ + Encounter Details +--------+ + + + + | Date | Type | Department | Care Team | Description | +--------+ + + + + | 06/19/ | Hospital | [place] [facility] | Faith Rodríguez | | | 2016 | Encounter | HOSPITAL LABORATORY | D, SMALL ENGINE MECHANIC ONE | | | | | [address] [place] | [facility] [place] | | | | | [place] | [place] [address] | | | | | [address] | [phone] | | | | | [phone] | | | +--------+ + + + [...]
--- OUTSIDE RECORDS SUMMARY | ~2019-09-01 | XMS | Encounter Summary ---
Demographics + + + | Address | [address] | | | [place] [address] | + + + | Home Phone [...] Author | [facility] | | | and [place]obar[place] | + + + | Organization | [facility] | [...] Team Providers + +------+ + | Care Synthetic Department Supervisor Name | Role | Phone | + +------+ + PCP | Unavailable | + +------+ + Encounter Details +--------+ + + + + | Date | Type | Department | Care Team | Description | +--------+ + + + + | 06/15/ | [facility] | [place] [facility] | Faith Rodríguez | | | 2017 | Encounter | [facility] | D, CARDIOLOGY FELLOW ONE | | | | | PRIMARY CARE [address] | [facility] | | | | | [facility], | [place] [address] | | | | | [place] [address] | [phone] | | | | | [phone] | | | +--------+ + + + [...]
--- OUTSIDE RECORDS SUMMARY | ~2019-09-01 | XMS | Encounter Summary ---
Demographics + + + | Address | [address] | | | [place] [address] | + + + | Home Phone [...] | Author | [facility] | | | and Escobarana | + + + | Organization | [facility] | | [...] Team Providers + +------+ + | Care Chicken Stuffer Name | Role | Phone | + [...] Medication Refill | | 2019 | | [facility] | [address] | | | | | PRIMARY CARE [address] | [facility], | | | | | [facility], | [place] [address] | | | | | [place] [address] | [phone] | | | | | [phone] | | | +--------+--------+ + + + [...]
--- OUTSIDE RECORDS SUMMARY | ~2019-09-01 | XMS | Encounter Summary ---
Demographics + + + | Address | [address] | | | [place] [address] | + + + | Home Phone [...] | Author | [facility] | | | and [place] | + + + | Organization | [facility] | | | and [place] [...] + +------+ + | Care Real Estate Appraiser Name | Role | Phone | + +------+ + PCP | Unavailable | + +------+ + Encounter Details +--------+ + + + + | Date | Type | Department | Care Team | Description | +--------+ + + + + | 05/03/ | [facility] | [place] [facility] | Faith Rodríguez | | | 2017 | Encounter | [facility] | D, INVESTIGATION DIVISION CAPTAIN ONE | | | | | PRIMARY CARE [address] | [facility] | | | | | [facility], | [place] [address] | | | | | [place] [address] | [phone] | | | | | [phone] | | | +--------+ + + + [...]
--- OUTSIDE RECORDS SUMMARY | ~2019-09-01 | XMS | Encounter Summary ---
Demographics + + + | Address | [address] | | | [place] [address] | + + + | Home Phone [...] Author | [facility] | | | and [place] | + + + | Organization | [facility] | [...] Providers + +------+ + | Care Product Safety Manager Name | Role | Phone | + +------+ + | Aric Palmer | PCP | | | [place] | | | + +------+ + Reason for Visit + + + | Reason | Comments | + + + | Provide Resources | CHW assistance with intermediate designer caer facility information | + + + Encounter Details +--------+ + + + + | Date | Type | Department | Care Team | Description | +--------+ + + + + | 03/06/ | Telephone | [place] [facility] | Estrellita Brasher | Provide Resources | | 2019 | | [facility] | D, [address] | ([facility] assistance with | | | | PRIMARY CARE [address] | [address] [place] | intermediate designer caer | | | | [facility], | [place] [address] | facility | | | | [place] [address] | [phone] | information) | | | | [phone] | | | +--------+ + + + [...]
[2019-09-01] MEDS ORDERED: PLAVIX75 MG PO (21:00)
[2019-09-01] MEDS ORDERED: ZESTRIL40 MG PO (21:01)
[2019-09-01] MEDS ORDERED: TRAZODONE HCL100 MG PO (21:02)
[2019-09-01] MEDS ORDERED: ZOCOR80 MG PO (21:02)
[2019-09-01] MEDS ORDERED: SPIRIVA RESPIMAT4 GM INH (21:02)
[2019-09-01] MEDS ORDERED: TUMS ULTRA400 MG PO (21:03)
[2019-09-01] MEDS ORDERED: COREG6.25 MG PO (21:04)
[2019-09-01] MEDS ORDERED: OMEPRAZOLE20 MG PO (21:04)
[2019-09-01] MEDS ORDERED: HYDROCODON-ACE1 EA13 PO (21:04)
[2019-09-01] MEDS ORDERED: MINIPRESS2 MG PO (21:05)
[2019-09-01] MEDS ORDERED: NEURONTIN300 MG PO (21:05)
--- NOTE | 2019-09-02 01:33 | NUR ---
PT ARRIVED TO THE ED FROM ED STRETCHER. PT SELF AMBULATED FROM ED STRETCHER TO BED. ELLA WEST IN ROOM TO SET UP CPOX, PERSONAL VEHICLE ADVISORLUDY XIE IN ROOM TO COMPLETE ADMIT. PT AWAKE, A/OX4. NO NEEDS AT THIS TIME, CALL LIGHT IN REACH.
--- NOTE | 2019-09-02 02:00 | NUR ---
IV FLUIDS INFUSING PER MD ORDERS, IV SITE WNL. PT REPORTS 5/10 PAIN, PRN DILAUDID ADMINISTERED (SEE EMAR). CPOX IN PLACE, PT ON 3LNC, O2 SAT AND HR WNL. ASSESSMENT COMPLETE. REPORT RECEIVED FROM CHEST X-RAY. PER RESULT, RECOMMENDED TO ADVANCE NG TUBE 3-4 CM. HEALTH CENTER MANAGER ANNE-MARIE MADE AWARE. ADVANCEMENT COMPLETED BY THIS RN, NG TUBE TO LIWS. PT DENIES NAUSEA. BOWEL TONES ACTIVE. CALL LIGHT IN REACH. URINAL AT BEDSIDE, NO FURTHER NEEDS.
--- NOTE | 2019-09-02 04:25 | NUR ---
PT RESTING IN BED, EYES CLOSED, RR WNL. NO DISTRESS NOTED. PT ON 3LNC, CPOX IN PLACE, O2 SAT AND HR WNL. PT DENIES ADDITIONAL NEEDS, CALL LIGHT IN REACH. IV FLUIDS INFUSING PER MD ORDERS, SITE WNL.
--- NOTE | 2019-09-02 06:12 | NUR ---
I&O'S AND VS DONE. PT ON CPOX, 3LNC IN PLACE. IV ABX INFUSING (SEE EMAR), IV SITE WNL. URINAL EMPTIED, KB CARE COMPLETED, SCANT BLOOD NOTED AT TIP OF PENIS, ED MD ALREADY AWARE, PT HAS HX OF HEMATURIA. HOB ELEVATED, NG TUBE TO LIWS. CHUNKY BROWN OUTPUT NOTED. NO FURTHER NEEDS, CALL LIGHT IN REACH.
--- NOTE | 2019-09-02 06:59 | NUR ---
DR HANKINS MADE AWARE OF ADVANCEMENT OF NG TUBE PER RECOMMENDATION OF IMAGING RESULTS. NO NEW ORDERS.
--- NOTE | 2019-09-02 07:26 | NUR ---
RECIEVED BEDSIDE REPORT FROM LUDY VELA. PT IS AWAKE AND ALERT IN BED. NG TUBE TO LIWS. PT TOLERATING NG TUBE WELL. XRAY UP TO TAKE PT TO XRAY. PER DR HANKINS PT DISCONECTED FROM SUCTION TO GO TO IMAGING.
--- NOTE | 2019-09-02 08:10 | NUR ---
Patient was awake breakfast oreded, fresh water in room and call light in reach.
--- NOTE | 2019-09-02 10:15 | NUR ---
RN EXPLAINED TO PT AND HIS SON THE PLAN OF CARE AND WHY HE NEEDS TO BE HERE AT LEAST ONE MORE NIGHT FOR DECOMPRESSION AND FLUIDS. PT AND SON VERBALIZED UNDERSTANDING, ALTHOUGH THEY WERE NOT HAPPY ABOUT STAYING. PT IS UPSET ABOUT DISRUPTION OF HIS ROUTINE.
--- NOTE | 2019-09-02 10:52 | NUR ---
CALLED [facility] TO REQUEST MAR FAXED.
[2019-09-02] MEDS ORDERED: FISH OIL 1,0001 EAC2 PO (11:37)
[2019-09-02] MEDS ORDERED: FLUOCINOLONE AC15 G1 TOP (11:39)
[2019-09-02] MEDS ORDERED: SUPER B-50 COM1 EACH PO (11:50)
[2019-09-02] MEDS ORDERED: CALCIUM 500 +1 EAC1 PO (11:51)
[2019-09-02] MEDS ORDERED: CYCLOBENZAPRINE10 MG PO (12:19)
[2019-09-02] MEDS ORDERED: PROAIR RESPICL90 MCG INH (12:19)
[2019-09-02] MEDS ORDERED: EPIN0.3P IM (12:20)
[2019-09-02] MEDS ORDERED: NITROSTAT0.4 MG SL (12:21)
--- NOTE | 2019-09-02 12:21 | NUR ---
MED REC COMPLETE
--- NOTE | 2019-09-02 13:15 | NUR ---
SPORTS BETTING MANAGER YOUNG AND THIS RN FLUSHED NG TUBE AFTER DR LUCIO REPORTED "CHUNKY" BLOOD IN NGT. MODERATE AMTS OF GASTRIC CONTENTS ASPERATED INTO CONTAINER, DEEP RED WITH SOME COFFEE GROUND CHUNKS. DR LUCIO ORDERED TYPE AND CROSS. PT VERBALLY AGREED TO TRANSFUSION IF NEEDED. THIS RN CALLED DR HANKINS TO GIVE UPDATE. DR HANKINS STATED THAT THE NGT WILL SOMETIMES ATTACH TO THE STOMACH WALL AND IRRITATE IT. NO NEW ORDERS, JUST MONITOR FOR NOW. PT DID SAY HE HAD A BLOODY NOSE THIS AM.
--- NOTE | 2019-09-02 14:25 | NUR ---
ADMINISTERED BP MEDICATIONS, VS STABLE. CONTENTS IN TUBING APPEARS CLEAR WITH BLOOD RESIDUAL. PATIENT NOW UNHOOKED FROM NG TUBE AND AMBULATING IN HALLWAYS WITH MANUSCRIPTS ARCHIVIST.
--- NOTE | 2019-09-02 17:38 | NUR ---
INITIAL ASSESMENT DONE. PATIENT PLANS TO RETURN TO [facility]. PATIENT REPORTS UNSURE IF WILL BE HAVING SURGERY FOR HERNIA REPAIR, HOWEVER REPORTS ONCE HE IS HOEM WILL CONTINUE TO DRINK BEER AND SMOKE CIGARETTES. PATIENT HAS NO CONCERNS AT THIS TIME, OR NEEDS.
--- NOTE | 2019-09-02 19:10 | NUR ---
BEDSIDE REPORT RECEIVED FROM OFFGOING LUDY HAWKINS. PT O2 FOUND TO BE OFF, REPLACED. NEW IV FLUID BAG STARTED. PT DENIES NEEDS AT THIS TIME. CALL LIGHT IN REACH.
--- NOTE | 2019-09-02 20:25 | EKG ---
[facility] [address] [facility] [place] [address] Signed Normal sinus rhythm RSR' or QR pattern in V1 suggests right ventricular conduction delay Left anterior fascicular block Anteroseptal infarct , age undetermined Abnormal ECG Confirmed by CAMILLA LUCIO MD ([id number]) on 09/02/2019 8:24:54 PM Electronically Signed By: CAMILLA LUCIO MD 09/02/192024 PATIENT NAME: BEATRIZ PALMA Electrocardiogram DATE OF : 47 PHYSICIAN: CAMILLA LUCIO MD REPORT #: [id number] REPORT IS CONFIDENTIAL AND NOT TO BE RELEASED WITHOUT AUTHORIZATION
--- NOTE | 2019-09-02 20:55 | NUR ---
PT ASSESSMENT COMPLETE. PT RATES PAIN 6/10 CONSTANT TO ABD. PT DENIES NAUSEA OR SOB. O2 IN PLACE, SAO2 94%. LUNG SOUNDS DIM IN THE BASES. PT REPORTS COUGH WITH OCCASIONAL PRODUCTIVE. NG TUBE TO LIWS, DRAINING LIGHT BROWNISH/ RED LIQUID WITH DARK SEDIMENT PRESENT. NG CANISTER EMPTIED. BT'S ACTIVE. ABD TENDER TO PALPATION. HERNIA PRESENT. PT STATES IT FEELS BACK TO NORMAL. PT ENCOURAGED TO VOID, DEMONSTRATES WHILE THIS READING AIDE IN ROOM. PT DENIES FURTHER NEEDS AT THIS TIME. CALL LIGHT WITHIN REACH. PT OREINTED TO ROOM AND BED CONTROLS, UNDERSTANDING STATED.
--- NOTE | 2019-09-03 00:20 | NUR ---
pt resting in bed with light on, dabbing nose due to slight nose bleed. pt reports pain to abd, 05/01. pt requests prn pain medication. prn dilaudid administered. pt denies further needs at this time. call light in reach.
--- NOTE | 2019-09-03 03:07 | NUR ---
PT RESTING IN BED WITH EYES CLOSED, WAKES EASILY WHEN CONSTRUCTION MANAGEMENT INSTRUCTOR ENTERS THE ROOM. PT STATES THAT PAIN IS "PRETTY LOW" AFTER LAST DIALUDID ADMINISTRATION. PT DENIES NAUSEA OR SOB AT THIS TIME. PT ASSESSMENT COMPLETE. UNCHANGED FROM PREVIOUS. PT DENIES FURTHER NEEDS AT THIS TIME. CALL LIGHT IN REACH.
--- NOTE | 2019-09-03 06:02 | CONS ---
[facility] [address], [place] [address] Signed DATE OF CONSULTATION: 09/02/2019 CHIEF COMPLAINT: Generalized abdominal pain. HISTORY OF PRESENT ILLNESS: Beatriz is a 74-year-old gentleman with a long history of smoking. He has a previous aortobiiliac vascular graft. He lived in [place] for many years, but recently moved over to [place], [place] to be close to his son. He now resides at [facility]. He was having significant generalized and crampy abdominal pain with nausea and vomiting x4. He came to emergency room for evaluation. 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 He said he has been out of some of his medications, but he is pretty certain that he has been taking the Plavix every day. He has been trying to work through [employer] to get that rerouted here at [place]. His vital signs are unremarkable. His white count was normal and mean cell volume is elevated. He is borderline anemic at 12.8 with low albumin at 3.4 and abdominal exam showed some mild distention. CT scan with IV contrast showed his epigastric ventral incisional hernia probably at 6 cm in diameter containing some nonobstructive colon. He certainly has COPD, but he also had fluid in the stomach and through much of the small bowel with swelling in the mesentery in the right mid quadrant having concerning for adhesion and/or internal hernia causing his bowel obstruction. Consequently, he was started on Rocephin and Flagyl, and an NG tube was placed. He was hydrated overnight. This morning overall he said he is feeling better. Still no flatus or bowel movement. 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 PAST SURGICAL HISTORY: Aortobiiliac graft around 2008, laminectomy x3 with metal in his back. SOCIAL HISTORY: He continues to smoke a pack of cigarettes a day. He says he does not drink. He is a . He had 4 children originally. His son at [phone] lives here in [place]. 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 He still drives. He lives at [facility]. Originally, he was in [place], [place] since moved over here. He goes to the [facility] originally in [place] with Dr. Jacklyn Gill. FAMILY HISTORY: His father of lung cancer. His mother also of lung cancer. REVIEW OF SYSTEMS: He had 10-system reviewed and include the pertinent positives in the above. Electronically Signed By: DARÍO HANKINS MD 09/03/19 0602 PATIENT NAME: BEATRIZ PALMA CONSULTATION DATE OF : 47 REPORT #: [id number] PHYSICIAN: DARÍO HANKINS MD PCP: JACKLYN GILL MD REPORT IS CONFIDENTIAL AND NOT TO BE RELEASED WITHOUT AUTHORIZATION [facility] [address], [place] [address] Signed ALLERGIES: Aspirin, bees, and wasps. MEDICATIONS: Plavix, lisinopril, simvastatin, Spiriva, trazodone, Tums, carvedilol, [place], Prilosec, prazosin, and gabapentin. PHYSICAL EXAMINATION: VITAL SIGNS: Blood pressure 158/70, heart rate 79, respiratory rate 15, he is 97.7 degrees, and he is 97% on room air. He is 5 feet 9 inches tall at 60 kg. GENERAL: Beatriz is a 74-year-old gentleman who looks older than his stated age. He is disheveled and has tobacco stains around his hands. He is thin to the point of being cachectic, although he is very friendly and attentive, and actually a fairly good historian. LUNGS: His lungs have mild bilateral rhonchi and mildly distant breath sounds. HEART: Appears to be regular rate and rhythm without murmurs. ABDOMEN: Mildly distended, but generally soft. He clearly has a 5 cm reducible epigastric midline ventral incisional hernia containing I can feel the stool in the colon. He is nontender throughout. RECTAL: Not performed. LABORATORY DATA: His white blood cell count is 8.1, neutrophils 59, and hemoglobin is 12.8 with mean cell volume of 106. BUN 17, creatinine 0.7. UA shows some red blood cells. Liver function tests are negative. Albumin is 3.4, lipase is 40. DIAGNOSTIC STUDIES: Chest x-ray shows the NG tube at the distal esophagus/GE junction. CT scan and pelvis shows some of the COPD and 5.5 cm epigastric ventral incisional hernia along with dilated fluid-filled stomach and dilated small bowel with some swelling in the mesentery in the right mid quadrant of the abdomen. There was some soiling in that mesentery in the right mid quadrant. ASSESSMENT AND PLAN: Beatriz is a 74-year-old disheveled gentleman with significant past medical history, presents with what looks like an obvious small bowel obstruction probably from adhesions. He also has moderate-sized epigastric ventral incisional hernia. He is currently on his Plavix. We are going to treat him conservatively for the time being and we will have a Medical Service see him in consultation. If this does not resolve, we will obviously see in a few days. He will need surgery as the Plavix is wearing off. I have reviewed this with Beatriz in detail. He expressed understanding and agrees with above plan. Electronically Signed By: DARÍO HANKINS MD 09/03/19 0602 PATIENT NAME: BEATRIZ PALMA CONSULTATION DATE OF : 47 REPORT #: [id number] PHYSICIAN: DARÍO HANKINS MD PCP: JACKLYN GILL MD REPORT IS CONFIDENTIAL AND NOT TO BE RELEASED WITHOUT AUTHORIZATION [address] [address] Signed Darío Hankins MD [facility] /[id number] cc: MD Darío Blankenship MD Copies: DARÍO HANKINS MD ~ Electronically Signed By: DARÍO HANKINS MD 09/03/19 0602 PATIENT NAME: BEATRIZ PALMA CONSULTATION DATE OF : 47 REPORT #: [id number] PHYSICIAN: DARÍO HANKINS MD PCP: JACKLYN GILL MD REPORT IS CONFIDENTIAL AND NOT TO BE RELEASED WITHOUT AUTHORIZATION
--- NOTE | 2019-09-03 07:10 | NUR ---
BEDSIDE HANDOFF REPORT RECEIVED FROM VOCATIONAL TRAINING INSTRUCTOR RN FINN. PT RESTING IN BED. PT DENIES NEEDS A THIS TIME. NG TO LIWS.
--- NOTE | 2019-09-03 08:20 | NUR ---
PT RESTING IN BED, SUPERVISOR GREEN END DEPARTMENT AT BEDSIDE GIVING NEB. PT WEANED TO ROOM AIR, O2 SATS 90-91%, LUNG SOUNDS CLEAR AND DIMINISHED IN THE BASES, DENIES SOB. PT DENIES CHEST PAIN. ABD SLIGHTLY TENDER TO PALPATE ON RLQ, BOWEL TONES ACTIVE, DENIES NAUSEA. CMS INTACT, WITHOUT EDEMA. PT WITH SCATTERED SCRATCHES TO BLE. NG TUBE TO LIWS, WITH COFFEE GROUND DRIANAGE. D5LR INFUSING AT 100 ML/HR. MORNING MEDICATIONS ADMINISTERED. DISCUSSED PLAN FOR SMALL BOWEL FOLLOW THROUGH TODAY. PT DENIES OTHER NEEDS AT THIS TIME.
--- NOTE | 2019-09-03 08:34 | NUR ---
Patient is up 2 x to bed side camode, patient is NPO.
--- NOTE | 2019-09-03 13:00 | NUR ---
PT SON IN ROOM, REQUESTING UPDATE ON PT STATUS, UPDATE PROVIDED. PT DENIES NEEDS AT THIS TIME.
--- NOTE | 2019-09-03 14:00 | NUR ---
PT RESTING IN BED. PT WITH LOOSE BM, LARGE AMOUNT. PT CONITNUES TO DENY NAUSEA, NG CLAMPED, IMAGING TO TAKE ONE ONE XRAY FOR SMALL BOWEL FOLLOW THROUGH. PT ELPIDIO PAIN. NO ACUTE CHANGES. PT DENIES OTHER NEEDS AT THIS TIME.
--- NOTE | 2019-09-03 14:50 | NUR ---
PT WITH LARGE LOOSE BM, GREEN/MILKY FROM CONTRAST. PT DENIES OTHER NEEDS AT THIS TIME.
--- NOTE | 2019-09-03 15:04 | NUR ---
PATIENT ADMITTED AT HIGH RISK FOR MALNUTRITION DUE TO POOR APPETITE RECENTLY BUT UNSURE OF WEIGHT LOSS. PATIENT CURRENTLY NPO WITH NGT FOR SBO. BMI IS 19.6. HAS COPD AND HISTORY OF EMPHYSEMA. STILL SMOKES. AWAIT BOWEL FUNCTION AND ADVANCEMENT IN DIET. WILL TALK WITH PATIENT WHEN ABLE TO EAT AND ASSESS WEIGHT HISTORY, NUTRITION INTAKE HISTORY, ETC.
--- NOTE | 2019-09-03 17:28 | NUR ---
In and spoke with pt and his son. Pt resides at [facility] and plans on returning there when NG is out and SBO has cleared. Pt needs PCP as his moved to [place]. Will call Dr. Cordoba's office tomorrow to schedule appt.
--- NOTE | 2019-09-03 17:30 | NUR ---
CALLED DR. HANKINS TO NOTIFY OF SMALL BOWEL FOLLOW THROUGH IMPRESSION, ORDER TO DC NG TUBE AND TO ADVANCE TO FULL LIQUID DIET, RBOV. NG TUBE DC WITHOUT COMPLICATION, PT ASSISTED TO ORDER DINNER. PT DENIES OTHER NEEDS AT THIS TIME.
--- NOTE | 2019-09-03 18:00 | NUR ---
PT HAD SMALL BOWEL FOLLOW THROUGH TODAY, SHOWED RESOLUTION OF SBO. NG TUBE REMOVED, ADVANCED TO FULL LIQUID DIET. PT DID NOT REQUIRE PAIN MEDICATION TODAY. WEANED TO ROOM AIR, CONTINUOUS PULSE OX IN PLACE, LUNG SOUNDS CLEAR AND DIMINISHED. RECEIVED K RIDER, MAG RIDER, AND BANANA BAG. SBA TO BATHROOM, INDEPENDENT TO BSC. PT WITH FREQUENT LOOSE BM.
--- NOTE | 2019-09-03 19:30 | NUR ---
FINISHED GETTING REPORT AND PATIENT NEEDS NOTHING AT THIS TIME CALL LIGHT IN REACH.
--- NOTE | 2019-09-03 21:00 | NUR ---
EVENING ASSESSMENT DONE, PATIENT DOING WELL NO PAIN. NEW WATER GIVEN. PATIENT IS READY TO TRY AND GO TO SLEEP. CALL LIGHT IN REACH.
--- NOTE | 2019-09-03 22:25 | NUR ---
PATIENT USED THE CALL LIGHT STATED HAVE BOWEL MOVEMENT ON PANTS AND ON FLOOR. THIS FINANCIAL CONSULTANT CLEANED UP USING RED WIPES. PATIENT IS USING THE BEDSIDE COMMODE BUT DID NOT MAKE IT.
--- NOTE | 2019-09-03 23:39 | NUR ---
PATIENT HAS LIGHTS OFF, BUT IS AWAKE AND SAYS HE IS JUST,"CAT NAPPIN", PATIENT NEEDS NOTHING AT THIS TIME. CALL LIGHT IN REACH.
--- NOTE | 2019-09-04 01:27 | NUR ---
PATIENT RESTING QUIETLY, EYES CLOSED, RESPIRATIONS REGULAR AND EVEN SATS 96% ON ROOM AIR AND PULSE 78 ON CONTINOUS PULSE OX. CALL LIGHT IN REACH.
--- NOTE | 2019-09-04 03:40 | NUR ---
PATIENT RESTING QUIETLY, EYES CLOSED, RESPIRATIONS EVEN AND REGULAR, EYES CLOSED. CALL LIGHT IN REACH.
--- NOTE | 2019-09-04 05:45 | NUR ---
PATIENT HAS HAD A GOOD NIGHT, NO PAIN, VOIDING AND HAVING STOOLS. PATIENT FEELING READY TO GO BACK TO HIS LIVING FACILITY. PATIENT STILL DOES HAVE SOME EXPIRATORY WHEEZES AT TIMES, BUT O2 SATS HAVE BEEN FINE ON ROOM AIR.
--- NOTE | 2019-09-04 07:10 | NUR ---
BEDSIDE HANDOFF REPORT RCEIVED FROM INSPECTING SUPERVISOR RN. PT STATES HE IS BEING DISCAHRGED, DISCUSSED PLAN FOR DISCHARGE. PT PROVIDED MENU TO ORDER REGULAR BREAKFAST. PT DENIES OTHER NEEDS AT THIS TIME.
--- NOTE | 2019-09-04 08:11 | NUR ---
PATIENT SITTING UP IN BED. SON IN ROOM. FINAL VITAL SIGNS WERE OBTAINED PRIOR TO DISCHARGE FROM E UNIT.
--- NOTE | 2019-09-04 08:30 | NUR ---
0830 In to speak with Saturnino. He is discharging to [facility]. Appt to establish care was scheduled with Dr. Cordoba's office for September 27, at 10:00. Called and left a message for sintia Stephens and message for Sue at [facility] to [facility].
--- NOTE | 2019-09-04 08:55 | DS ---
[facility] [address] [place], [place] [address] Signed ADMISSION DATE: 09/02/2019 DISCHARGE DATE: 09/04/2019 FINAL DIAGNOSES: 1. Resolved small-bowel obstruction. 2. Anemia. PROCEDURES: 1. CT scan of the abdomen and pelvis. 2. Small bowel follow-through. HISTORY OF PRESENT ILLNESS: Beatriz is a 74-year-old gentleman, who has recently moved to our area to be closer to his son. He lives out on [address] at an extended care facility. He came in with lower abdominal pain, nausea and vomiting. In the emergency room, he was a little hypertensive and mildly anemic initially at 12.8 and now at 11.9 with some hydration. The mean cell volume is high at 106. Other labs were fine. He does have chronic hematuria. The CT scan was concerning for small bowel obstruction. He also has chronic epigastric ventral incisional hernia around 5.5-6 cm in diameter. I have been asked to admit him as a general surgeon on-call. HOSPITAL COURSE: Beatriz was admitted as above and started on admission on Rocephin and Flagyl. We discontinued that and maintained him on NG tube decompression. He does have Plavix on board and he did have some blood out the NG tube. He had a significant amount of flatus, so we sent him down for small bowel follow-through and his small bowel obstruction had completely resolved. This was followed by multiple bowel movements. He tolerated a full liquid diet yesterday. Repeat hemoglobin yesterday was 11.9. His a.m. labs today are still pending. His pre-albumin runs low at 11.8. On repeat abdominal exam this morning, he is completely soft, flat, benign. He said he is feeling great and like to go back home. DISCHARGE PLANS AND MEDICATIONS: Beatriz is going to be discharged back to his [facility]. There is no reason to change any of his chronic medications. He can simply resume all those. He can resume his routine diet and his routine activities of daily living. He needs to follow up with his primary care provider with respect to his anemia. He should probably come back and see me in a week or two in my office and consider upper and lower endoscopy if he has never had those performed, particularly with respect to his anemia. I reviewed all this with Beatriz. He has expressed understanding and agrees above plan. Electronically Signed By: DARÍO HANKINS MD 09/04/19 0855 PATIENT NAME: BEATRIZ PALMA DISCHARGE SUMMARY DATE OF : 47 REPORT #: [id number] PHYSICIAN: DARÍO HANKINS MD PCP: JACKLYN GILL MD REPORT IS CONFIDENTIAL AND NOT TO BE RELEASED WITHOUT AUTHORIZATION [facility] [address] [place] [address] Signed Darío Hankins MD [facility] /[id number] cc: MD Jacklyn Harmon MD Copies: DARÍO HANKINS MD, LEHLIA MD ~ Electronically Signed By: DARÍO HANKINS MD 09/04/19 0855 PATIENT NAME: BEATRIZ PALMA DISCHARGE SUMMARY DATE OF : 47 REPORT #: [id number] PHYSICIAN: DARÍO HANKINS MD PCP: JACKLYN GILL MD REPORT IS CONFIDENTIAL AND NOT TO BE RELEASED WITHOUT AUTHORIZATION
== END 2019-09-04 09:05 | disposition home or self-care (01) | DRG 389 ==
LOC: ED 20:33 → MS 09-02 00:22
PROVIDERS: ADMIT Colon & Rectal Surgery
DX: K56.609 Unspecified intestinal obstruction, unspecified as to partial versus complete obstruction (principal); N02.9 Recurrent and persistent hematuria with unspecified morphologic changes; R64 Cachexia; Z68.1 Body mass index [BMI] 19.9 or less, adult; D64.9 Anemia, unspecified; J43.9 Emphysema, unspecified; I10 Essential (primary) hypertension; K21.9 Gastro-esophageal reflux disease without esophagitis; I25.10 Atherosclerotic heart disease of native coronary artery without angina pectoris; I25.2 Old myocardial infarction; F17.210 Nicotine dependence, cigarettes, uncomplicated; Z88.8 Allergy status to other drugs, medicaments and biological substances; Z23 Encounter for immunization; Z79.02 Long term (current) use of antithrombotics/antiplatelets; Z79.891 Long term (current) use of opiate analgesic; Z79.899 Other long term (current) drug therapy
CPT/HCPCS: 36415; 71045; 71046; 74177; 74250; 80048; 80053; 81001; 82803; 83690; 83735; 84100; 84134; 84439; 84443; 85025; 86850; 86900; 86901; 90662; 93005; 93010; 94640; 94762; 99285-25; 99406; C9113; J0696; J1170; J1650; J2405; J3411; J3420; J3475; J3480; J7040; J7060; J7121; Q9967

== ENCOUNTER 2019-11-19 16:31 | Inpatient (IN) | payer MEDICARE, OTHER ==
[~2019-11-19] VITALS: Ht 175.3 cm; Wt 55.6 kg
[~2019-11-19 16:31] MED LIST: CALCIUM 500 +1 EAC1 PO; COREG6.25 MG PO; CYCLOBENZAPRINE10 MG PO; EPIN0.3P IM; FISH OIL 1,0001 EAC2 PO; FLUOCINOLONE AC15 G1 TOP; HYDROCODON-ACE1 EA13 PO; MINIPRESS2 MG PO; NEURONTIN300 MG PO; NITROSTAT0.4 MG SL; OMEPRAZOLE20 MG PO; PLAVIX75 MG PO; PROAIR RESPICL90 MCG INH; SPIRIVA RESPIMAT4 GM INH; SUPER B-50 COM1 EACH PO; TRAZODONE HCL100 MG PO; TUMS ULTRA400 MG PO; ZESTRIL40 MG PO; ZOCOR80 MG PO
--- NOTE | 2019-11-20 06:47 | CONS ---
[facility] [address] [place], [place] [address] Signed DATE OF CONSULTATION: 11/20/2019 CHIEF COMPLAINT: Nausea and vomiting for 5 days. HISTORY OF PRESENT ILLNESS: Beatriz is a 74-year-old significantly disabled gentleman. Mainly he has had a long history of smoking and COPD. He has had a previous myocardial infarction and has peripheral arterial disease. He now has an aortobiiliac graft. He has also had chronic hematuria for years. We had him in the hospital in mid August 2019, with a small-bowel obstruction. We treated him conservatively and he did well. He was transferred to [facility] out on the [address] for ongoing extended care facility treatment. I actually saw him in my office after his last hospital admission. He looked and felt much better. He did have some anemia with a hemoglobin around 11.5 to 12.9. His mean cell volume was up over 100. He had planned to see Dr. Kannan Cordoba here in [place], [place]. He told me he did go see him once. He also was part of the [facility] [place]. While living over in [place], [place], he did see Dr. Jacklyn Gill. He said the last 5 or 6 days, he has had some generalized abdominal pain, distention with nausea and vomiting. He has gotten progressively more dehydrated. He finally mentioned it to his caregivers and they brought him here to our local emergency room for evaluation. In the emergency room, he is mildly distended without any significant peritoneal signs or symptoms. White count is normal, but he is certainly dehydrated. An NG tube was placed. He has been admitted to our ICU. He has been receiving some IV fluids and he is just starting to make some urine now after he has had a Rubin catheter in place for an hour or 2. ALLERGIES: Aspirin, bees, wasp, and codeine. MEDICATIONS: Plavix, lisinopril, simvastatin, Spiriva, trazodone, calcium, carvedilol, [place], Prilosec, prazosin, gabapentin, albuterol, fish oil, Flexeril, vitamin B complex, nitroglycerin p.r.n., and fluocinolone ointment. PAST MEDICAL HISTORY: Includes COPD, chronic benign hematuria for over 50 years, gastroesophageal reflux disease, hypertension, myocardial infarction, epigastric ventral incisional hernia, and peripheral arterial disease along with coronary artery disease. PAST SURGICAL HISTORY: Includes his kvpzi-jq-ypima graft around 2008, laminectomy x3 with metal in his back. SOCIAL HISTORY: Electronically Signed By: DARÍO HANKINS MD 11/20/19 0647 PATIENT NAME: BEATRIZ PALMA CONSULTATION DATE OF : 47 REPORT #: [id number] PHYSICIAN: DARÍO HANKINS MD PCP: JACKLYN GILL MD REPORT IS CONFIDENTIAL AND NOT TO BE RELEASED WITHOUT AUTHORIZATION [address] [address] Signed He continues to smoke around a pack of cigarettes a day. He does not drink. He is a . He has four children originally. His son is at [phone]. 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 The patient himself still drives apparently. He resides at [facility] on the [address]. He had been living in [place], [place], but has since moved over to be closer to his son and to be in the [facility]. Dr. Jacklyn Gill is his primary care provider through the [facility] in [place], [place]. He has established with Dr. Kannan Cordoba here in [place], [place]. FAMILY HISTORY: Father of lung cancer. Mother of lung cancer. REVIEW OF SYSTEMS: He had 10 systems reviewed and he has not really changed much since I saw him a few weeks back in the office. PHYSICAL EXAMINATION: VITAL SIGNS: Blood pressure is 90/38, heart rate 78, respiratory rate 17, his temperature is 97.6. He is 92% on a face mask. He is 5 feet 9 inches and 55 kg. GENERAL: Beatriz is a 74-year-old gentleman, who is lying in right lateral decubitus position in his ICU bed. He is easily awakened. He actually answers appropriately. He can talk in full sentences. He is quite thin and always looks disheveled. He always has tobacco stain on his mustache and his fingers. He does look older than his stated age. He is cachectic, but always very friendly and cooperative. LUNGS: Moderately distant breath sounds. HEART: Difficult to hear, but it appears to be regular rate and rhythm without murmurs. ABDOMEN: Mcyh-yz-zpsqkolpbv distended, mildly tender. He has the epigastric, but reducible ventral incisional hernia, about 5 or 6 cm in diameter. He has no peritoneal signs or symptoms. RECTAL: Not performed. LABORATORY DATA: His white blood cell count is 8.2 with neutrophils 84, his hemoglobin is up at 15.2 with a mean cell volume 99, platelets 184. BUN is up at 33, creatinine 0.93, glucose 160. Urine specific gravity is up at 1.040 with calcium slightly up at 10.9. Albumin is 4.2. Liver function tests are negative. Lipase negative at 7. RADIOGRAPHIC STUDIES: A chest x-ray shows the NG tube in his stomach with some dilated small bowel on the COPD. Unfortunately, I cannot access our x-ray system tonight. The CT scan of abdomen and pelvis shows dilated small bowel around 5.6 cm with his ventral hernia and some free fluid in the abdomen and some mildly atrophic kidneys. He appears to have the same bowel obstruction that he did back in August. Electronically Signed By: DARÍO HANKINS MD 11/20/19 0647 PATIENT NAME: BEATRIZ PALMA CONSULTATION DATE OF : 47 REPORT #: [id number] PHYSICIAN: DARÍO HANKINS MD PCP: JACKLYN GILL MD REPORT IS CONFIDENTIAL AND NOT TO BE RELEASED WITHOUT AUTHORIZATION [facility] [address] [place], [place] [address] Signed ASSESSMENT AND PLAN: Beatriz is a 74-year-old gentleman with significant past medical history. He looks like he has recurrent small-bowel obstruction. He is certainly dehydrated. He is on to his 3rd liter of fluid and just now starting to make a little urine. Overall, he says he feels better already. I explained to Beatriz as I did previously in August 2019 that he is a poor surgical candidate. Nevertheless, he told me if he needed surgery he would give his permission. However, he did tell me that he would be a full code, but he does not want extended heroic measures with respect to breathing machines and feeding tubes and so forth. At this point, we are going to treat him conservatively and we will continue his hydration. We will repeat his labs in the morning and have our Internal Medicine Service see him. He has expressed understanding and agrees to above plan. Darío Hankins MD ALB/MODL /[id number] cc: MD Darío Blankenship MD Robert G Johnson, MD Copies: JACKLYN GILL MD,KANNAN HUMPHRIES MD DMD ~ Electronically Signed By: DARÍO HANKINS MD 11/20/19 0647 PATIENT NAME: BEATRIZ PALMA CONSULTATION DATE OF : 47 REPORT #: [id number] PHYSICIAN: DARÍO HANKINS MD PCP: JACKLYN GILL MD REPORT IS CONFIDENTIAL AND NOT TO BE RELEASED WITHOUT AUTHORIZATION
== END 2019-11-20 10:15 | DRG 388 ==
LOC: ED 16:31 → CCU 16:32
PROVIDERS: ADMIT Colon & Rectal Surgery
PROC: 0BH17EZ Insertion of Endotracheal Airway into Trachea, Via Natural or Artificial Opening (ICD-10-PCS; principal; 2019-11-20)
PROC: 5A1935Z Respiratory Ventilation, Less than 24 Consecutive Hours (ICD-10-PCS; 2019-11-20)
DX: K56.609 Unspecified intestinal obstruction, unspecified as to partial versus complete obstruction (principal); J96.01 Acute respiratory failure with hypoxia; N02.9 Recurrent and persistent hematuria with unspecified morphologic changes; N17.9 Acute kidney failure, unspecified; E86.0 Dehydration; K43.2 Incisional hernia without obstruction or gangrene; F17.210 Nicotine dependence, cigarettes, uncomplicated; J44.9 Chronic obstructive pulmonary disease, unspecified; I25.2 Old myocardial infarction; I73.9 Peripheral vascular disease, unspecified; K21.9 Gastro-esophageal reflux disease without esophagitis; I10 Essential (primary) hypertension; I25.10 Atherosclerotic heart disease of native coronary artery without angina pectoris; F39 Unspecified mood [affective] disorder; E78.5 Hyperlipidemia, unspecified; I48.91 Unspecified atrial fibrillation; E83.42 Hypomagnesemia; I95.9 Hypotension, unspecified; Z66 Do not resuscitate; Z95.828 Presence of other vascular implants and grafts; Z88.5 Allergy status to narcotic agent; Z88.8 Allergy status to other drugs, medicaments and biological substances; Z79.02 Long term (current) use of antithrombotics/antiplatelets; Z79.891 Long term (current) use of opiate analgesic; Z79.899 Other long term (current) drug therapy
CPT/HCPCS: 31500; 31720; 36415; 51702; 71045; 74177; 80048; 80053; 81001; 83605; 83690; 83735; 83880; 84100; 84134; 85025; 94002; 94640; 96361; 99285-25; J0330; J1170; J2060; J2370; J2405; J3010; J7030; J7060; J7121; Q9967